=== PATIENT | female | born 1960 | race Hispanic/Latino ===

== ENCOUNTER 2017-11-15 12:13 | Emergency (ER) | payer MEDICAID ==
[2017-11-15 12:23] VITALS: BP 172/88
--- NOTE | 2017-11-15 13:36 | Cat Scan Report ---
FINAL REPORT EXAM: CT HEAD/BRAIN WO CON HISTORY: Sudden onset right side headache. TECHNIQUE: CT of the Head without IV contrast. PRIORS: None currently available. FINDINGS: Decreased attenuation regions in the periventricular and subcortical white matter are nonspecific and may represent small vessel ischemic disease, encephalopathy, edema, or a demyelinating process. Small vessel ischemic disease is more likely. Vascular calcifications. There is no evidence for acute ischemia. There is no hemorrhage. There is no midline shift. There is no hydrocephalus. There is no mass. Age appropriate vivas-white matter attenuation is noted. There is no calvarial fracture. The temporal bones demonstrate aerated mastoid air cells. The middle ears appear unremarkable. Paranasal sinuses are unremarkable. Globes are intact. IMPRESSION: No acute intracranial findings. Chronic ischemic disease.
[2017-11-15] MEDS ORDERED: NORCO 5/325 PO ONE (14:31)
[2017-11-15] MEDS ORDERED: BACTRIM DS PO ONE (14:31)
[2017-11-15] MEDS ORDERED: MOTRIN PO ONE (14:31)
--- NOTE | 2017-11-15 14:53 | Emergency Department Report ---
ED Headache HPI - General Chief Complaint: Headache Stated Complaint: HEAD PAIN Time Seen by Provider: 11/15/17 14:30 - History of Present Illness Initial Comments: 57-year-old female past medical history hypertension, diabetes, bypass surgery presents with complaint of approximately 3 days of scalp pain and "swelling/ knot on the right side of her neck." Patient specifically pointing to the top of her scalp and says that she has noticed some skin changes there. Patient is fully lucid awake alert and oriented 3. Denies any head trauma. Denies any fevers or chills. States that she has significant discomfort overlying her scalp. Quality: mild Associated Symptoms: denies symptoms Allergies/Adverse Reactions: Allergies Penicillins Allergy (Verified 03/20/13 10:23) Itching Home Medications: Ambulatory Orders Metformin HCl [Fortamet ER] 1,000 mg PO DAILY #30 tab.er.24 03/20/13 Pregabalin [Lyrica] 75 mg PO BID #60 capsule 03/20/13 traMADol [Ultram 50 MG tab] 50 mg PO Q4HR PRN #60 tablet 03/20/13 ALPRAZolam [Xanax TAB] 1 mg PO PRN PRN 09/11/13 Lisinopril [Zestril TAB] 20 mg PO DAILY 09/11/13 Oxycodone HCl/Acetaminophen [Percocet 10/325 mg] 1 each PO Q6H PRN 09/11/13 Pregabalin [Lyrica] 200 mg PO DAILY 09/11/13 Acetaminophen/Codeine [Tylenol /Codeine # 3 tab] 1 tab PO Q6H PRN #6 tab Cephalexin [Keflex] 500 mg PO Q12HR #14 cap 11/15/17 Mupirocin [Bactroban 2% CREAM] 1 applicatio TP TID #1 cream 11/15/17 Salicylic Acid [Selsun Blue] 1 applicatio TP QDAY #1 shampoo 11/15/17 Sulfamethoxazole/Trimethoprim [Bactrim DS TAB] 1 each PO BID #14 tablet ED Review of Systems ROS: Stated complaint: HEAD PAIN Other details as noted in HPI Constitutional: denies: chills, fever Eyes: denies: eye pain, eye discharge, vision change ENT: denies: ear pain, throat pain Respiratory: denies: cough, shortness of breath, wheezing Cardiovascular: denies: chest pain, palpitations Endocrine: no symptoms reported Gastrointestinal: denies: abdominal pain, nausea, diarrhea Genitourinary: denies: urgency, dysuria, discharge Musculoskeletal: denies: back pain, joint swelling, arthralgia Skin: as per HPI, lesions (lesions on scalp). denies: rash Neurological: denies: headache, weakness, paresthesias Psychiatric: denies: anxiety, depression Hematological/Lymphatic: denies: easy bleeding, easy bruising ED Past Medical Hx - Past Medical History Hx Hypertension: Yes Hx Diabetes: Yes Hx HIV: No Additional medical history: Diabetic neuropathy, previous CVA per medical record - Surgical History Hx Open Heart Surgery: Yes - Social History Smoking Status: Current Every Day Smoker Substance Use Type: None - Medications Home Medications: Home Medications Medication Instructions Recorded Confirmed Last Taken Type Metformin HCl [Fortamet ER] 1,000 mg PO DAILY #30 tab.er.24 03/20/13 09/11/13 Rx Pregabalin [Lyrica] 75 mg PO BID #60 capsule 03/20/13 09/11/13 09/11/13 Rx traMADol [Ultram 50 MG tab] 50 mg PO Q4HR PRN #60 tablet 03/20/13 09/11/1308/28 Rx ALPRAZolam [Xanax TAB] 1 mg PO PRN PRN 09/11/13 09/11/13 Unknown History Lisinopril [Zestril TAB] 20 mg PO DAILY 09/11/13 09/11/13 09/11/13 History Oxycodone HCl/Acetaminophen 1 each PO Q6H PRN 09/11/13 09/11/13 Unknown History [Percocet 10/325 mg] Pregabalin [Lyrica] 200 mg PO DAILY 09/11/13 09/11/13 09/11/13 History Acetaminophen/Codeine [Tylenol 1 tab PO Q6H PRN #6 tab 11/15/17 Unknown Rx /Codeine # 3 tab] Cephalexin [Keflex] 500 mg PO Q12HR #14 cap 11/15/17 Unknown Rx Mupirocin [Bactroban 2% CREAM] 1 applicatio TP TID #1 cream 11/15/17 Unknown Rx Salicylic Acid [Selsun Blue] 1 applicatio TP QDAY #1 shampoo 11/15/17 Unknown Rx Sulfamethoxazole/Trimethoprim 1 each PO BID #14 tablet 11/15/17 Unknown Rx [Bactrim DS TAB] ED Physical Exam - General Limitations: No Limitations General appearance: alert, in no apparent distress - Head Head exam: Present: atraumatic, normocephalic - Eye Eye exam: Present: normal appearance - ENT ENT exam: Present: mucous membranes moist - Neck Neck exam: Present: normal inspection - Respiratory Respiratory exam: Present: normal lung sounds bilaterally. Absent: respiratory distress - Cardiovascular Cardiovascular Exam: Present: regular rate, normal rhythm. Absent: systolic murmur, diastolic murmur, rubs, gallop - GI/Abdominal GI/Abdominal exam: Present: soft, normal bowel sounds - Extremities Exam Extremities exam: Present: normal inspection - Back Exam Back exam: Present: normal inspection - Neurological Exam Neurological exam: Present: alert, oriented X3 - Psychiatric Psychiatric exam: Present: normal affect, normal mood - Skin Skin exam: Present: warm, dry, intact, normal color. Absent: rash - Expanded Skin Exam Expanded Type of lesion: Present: rash Description of rash: Present: tenderness 1 - Small area of slightly erythematous raised skin top of scalp consistent with ringworm/folliculitis ED Course Vital Signs 11/15/17 12:19 Temperature 97.8 F Pulse Rate 104 H Respiratory 20 Rate Blood Pressure 172/88 O2 Sat by Pulse 93 Oximetry ED Medical Decision Making - Medical Decision Making A/P: Scalp folliculitis/scalp infection 1-empiric treatment with Bactrim and Keflex 2-Selsun blue shampoo 3-I advised the patient to return to the ED if she experiences significant spread of rash fevers chills nausea vomiting 4-Motrin when necessary. Follow-up with primary care doctor Critical care attestation.: If time is entered above; I have spent that time in minutes in the direct care of this critically ill patient, excluding procedure time. ED Disposition Clinical Impression: Infection of scalp, Folliculitis Disposition: TO HOME OR SELFCARE Is pt being admited?: No Does the pt Need Aspirin: No Condition: Stable Instructions: Folliculitis (ED), Tinea Capitis (ED) Prescriptions: Acetaminophen/Codeine [Tylenol /Codeine # 3 tab] 1 tab PO Q6H PRN #6 tab PRN Reason: Pain Cephalexin [Keflex] 500 mg PO Q12HR #14 cap Mupirocin [Bactroban 2% CREAM] 1 applicatio TP TID #1 cream Salicylic Acid [Selsun Blue] 1 applicatio TP QDAY #1 shampoo Sulfamethoxazole/Trimethoprim [Bactrim DS TAB] 1 each PO BID #14 tablet Referrals: SANTY LYNCH DO [Primary Care Provider] - 3-5 Days Forms: Accompanied Note Time of Disposition: 14:59
[2017-11-15] MEDS ORDERED: KEFLEX PO ONE (15:00)
== END 2017-11-15 15:23 | disposition home or self-care (01) ==
LOC: ED 12:13
DX: L73.9 Follicular disorder, unspecified (principal); B99.8 Other infectious disease; I10 Essential (primary) hypertension; E11.9 Type 2 diabetes mellitus without complications; F17.200 Nicotine dependence, unspecified, uncomplicated; Z88.0 Allergy status to penicillin
CPT/HCPCS: 70450

== ENCOUNTER 2017-12-05 20:19 | Emergency (ER) | payer MEDICAID ==
[2017-12-05] MEDS ORDERED: NORCO 5/325 PO ONE (20:40)
[2017-12-05 20:52] LABS: Basophils # (Auto) 0.1 K/mm3 (0.0-0.1); Basophils % (Auto) 1.3 % (0.0-1.8); Eosinophils # (Auto) 0.3 K/mm3 (0.0-0.4); Eosinophils % (Auto) 3.4 % (0.0-4.3); Hematocrit 39.6 % (30.3-42.9); Hemoglobin 13.5 gm/dl (10.1-14.3); Lymphocytes # (Auto) 2.9 K/mm3 (1.2-5.4); Lymphocytes % (Auto) 29.9 % (13.4-35.0); Mean Corpuscular HGB Conc 34 % (30-34); Mean Corpuscular Hemoglobin 28 pg (28-32); Mean Corpuscular Volume 83 fl (79-97); Monocytes # (Auto) 0.6 K/mm3 (0.0-0.8); Monocytes % (Auto) 5.9 % (0.0-7.3); Platelet Count 315 K/mm3 (140-440); Red Blood Count 4.78 M/mm3 (3.65-5.03); Red Cell Distribution Width 16.1 % (13.2-15.2)
--- NOTE | 2017-12-05 21:01 | Emergency Department Report ---
HPI - General Chief Complaint: Headache Time Seen by Provider: 12/05/17 20:36 - HPI HPI: 57-year-old female presents to the emergency department by EMS with 2 complaints. First, the patient complains of pain to the top posterior portion of her head/scalp. The patient was here 3 weeks ago with similar symptoms and had a CT scan done at that time that did not show any acute process. She says that the pain has worsened in this area and it shoots down towards the right side of her scalp towards her ear. She feels a "bump" but denies any trauma. The second complaint is some tingling sensation to the right hand and arm. She denies any numbness, decreased range of motion, fever, chest pain or shortness of breath. She has a history of hypertension, diabetes and previous DC. No recent travel or sick contacts at home. Her primary care physician is Dr. Lynch and she is set up to see him one week from today. She has otherwise taken some ibuprofen for her discomfort without much relief. ED Past Medical Hx - Past Medical History Hx Hypertension: Yes Hx Diabetes: Yes Hx HIV: No Additional medical history: Diabetic neuropathy, previous CVA per medical record , , hx of DC - Surgical History Hx Open Heart Surgery: Yes - Social History Smoking Status: Current Every Day Smoker Substance Use Type: None - Medications Home Medications: Home Medications Medication Instructions Recorded Confirmed Last Taken Type Metformin HCl [Fortamet ER] 1,000 mg PO DAILY #30 tab.er.24 03/20/13 09/11/13 Rx Pregabalin [Lyrica] 75 mg PO BID #60 capsule 03/20/13 09/11/13 09/11/13 Rx traMADol [Ultram 50 MG tab] 50 mg PO Q4HR PRN #60 tablet 03/20/13 09/11/1308/28 Rx ALPRAZolam [Xanax TAB] 1 mg PO PRN PRN 09/11/13 09/11/13 Unknown History Lisinopril [Zestril TAB] 20 mg PO DAILY 09/11/13 09/11/13 09/11/13 History Oxycodone HCl/Acetaminophen 1 each PO Q6H PRN 09/11/13 09/11/13 Unknown History [Percocet 10/325 mg] Pregabalin [Lyrica] 200 mg PO DAILY 09/11/13 09/11/13 09/11/13 History Acetaminophen/Codeine [Tylenol 1 tab PO Q6H PRN #6 tab 11/15/17 Unknown Rx /Codeine # 3 tab] Cephalexin [Keflex] 500 mg PO Q12HR #14 cap 11/15/17 Unknown Rx Mupirocin [Bactroban 2% CREAM] 1 applicatio TP TID #1 cream 11/15/17 Unknown Rx Salicylic Acid [Selsun Blue] 1 applicatio TP QDAY #1 shampoo 11/15/17 Unknown Rx Sulfamethoxazole/Trimethoprim 1 each PO BID #14 tablet 11/15/17 Unknown Rx [Bactrim DS TAB] Acetaminophen/Codeine [Tylenol 1 tab PO QHS PRN #6 tab 12/05/17 Unknown Rx /Codeine # 3 tab] ED Review of Systems ROS: Stated complaint: [place]/R ARM NUMBNESS Other details as noted in HPI Comment: All other systems reviewed and negative Constitutional: denies: chills, fever Eyes: denies: eye pain, eye discharge, vision change ENT: denies: ear pain, throat pain Respiratory: denies: cough, shortness of breath, wheezing Cardiovascular: denies: chest pain, palpitations Gastrointestinal: denies: abdominal pain, nausea, diarrhea Genitourinary: denies: urgency, dysuria, discharge Musculoskeletal: denies: back pain, joint swelling, arthralgia Skin: denies: lesions, change in color Neurological: headache (scalp / head pain), paresthesias Physical Exam - Physical Exam Vital Signs: Vital Signs 12/05/17 12/05/17 12/05/17 20:25 20:30 20:49 Temperature 98.7 F Pulse Rate 96 H 88 Respiratory 17 18 Rate Blood Pressure 117/52 [Left] O2 Sat by Pulse 96 Oximetry Physical Exam: GENERAL: The patient is well-developed well-nourished. HENT: Normocephalic. Patient has moist mucous membranes. EYES: Extraocular motions are intact. Pupils equal reactive to light bilaterally. No nystagmus. NECK: Supple. Trachea is midline. CHEST/LUNGS: Clear to auscultation. There is no respiratory distress noted. HEART/CARDIOVASCULAR: Regular. There is no tachycardia. There is no murmur. ABDOMEN: Abdomen is soft, nontender. Patient has normal bowel sounds. There is no abdominal distention. SKIN: Skin is warm and dry. There is a small circular eschar/scab to the superior posterior portion of the scalp where the patient feels a "bump" and with the patient has some discomfort. NEURO: The patient is awake, alert, and oriented. The patient is cooperative. The patient has no focal neurologic deficits. The patient has normal speech and gait. Cranial nerves II through XII grossly intact MUSCULOSKELETAL: There is no tenderness or deformity. There is no limitation range of motion. There is no evidence of acute injury. ED Course Vital Signs 12/05/17 12/05/17 12/05/17 20:25 20:30 20:49 Temperature 98.7 F Pulse Rate 96 H 88 Respiratory 17 18 Rate Blood Pressure 117/52 [Left] O2 Sat by Pulse 96 Oximetry ED Medical Decision Making - Lab Data Result diagrams: 12/05/17 20:43 12/05/17 20:43 - EKG Data -: EKG Interpreted by Me EKG shows normal: sinus rhythm (with PACs), axis, intervals, QRS complexes, ST- T waves Rate: normal - EKG Data When compared to previous EKG there are: previous EKG unavailable Interpretation: normal EKG - Medical Decision Making The patient had a CT scan done 3 weeks ago for similar complaints and did not show any acute process at this time. She was given a single [place] here and upon reevaluation she says she is feeling much better and therefore I did not feel that a repeat CT imaging of the head was necessary. On top of that, the patient has no focal motor or sensory deficits in her cranial nerves are intact. She was seen ambulatory throughout the emergency department and appears stable. Labs were mostly unremarkable including no leukocytosis or electrolyte abnormalities. There is a small scab or eschar to the area of her discomfort and believe is what she is feeling regarding the "bump." It is possible that the rest of the scalp pain is neuropathy as I do not see any visible rash or lesions to the skin of the scalp at this time. Patient says she is feeling better and is asking for discharge home. She has an appointment in 1 week with her primary care physician but she has been encouraged to move it up the next few days. Vital signs stable including being afebrile. She will return to the ER with any worsening of her symptoms or any acute distress. - Differential Diagnosis neuropathy, tension headache, scalp infection Critical Care Time: No Critical care attestation.: If time is entered above; I have spent that time in minutes in the direct care of this critically ill patient, excluding procedure time. ED Disposition Clinical Impression: Scalp pain, Paresthesia Headache Qualifiers: Headache type: unspecified Headache chronicity pattern: episodic headache Intractability: not intractable Qualified Code(s): R51 - Headache Disposition: DC-01 TO HOME OR SELFCARE Is pt being admited?: No Condition: Stable Instructions: Acute Headache (ED), Paresthesia (ED) Additional Instructions: Please follow-up with your primary care physician in the next few days. Return to the emergency Department with any worsening of your symptoms or any acute distress. You have been prescribed a medication that is sedating and therefore should not be taken prior to driving, working, and responsible for children and in no way should be mixed with alcohol of any quantity. Prescriptions: Acetaminophen/Codeine [Tylenol /Codeine # 3 tab] 1 tab PO QHS PRN #6 tab PRN Reason: Pain Referrals: SANTY LYNCH DO [Staff Physician] - [place] Time of Disposition: 21:55
[2017-12-05 21:19] LABS: Alanine Aminotransferase 8 units/L (7-56); Albumin 3.6 g/dL (3.9-5); BUN/Creatinine Ratio 43; Blood Urea Nitrogen 17 mg/dL (7-17); Calcium 8.4 mg/dL (8.4-10.2); Hemolysis Index 2
[2017-12-05 22:04] VITALS: BP 124/60
== END 2017-12-05 21:50 | disposition home or self-care (01) ==
LOC: ED 20:19
DX: R51 Headache (principal); R20.2 Paresthesia of skin; I10 Essential (primary) hypertension; E11.9 Type 2 diabetes mellitus without complications; F17.200 Nicotine dependence, unspecified, uncomplicated
CPT/HCPCS: 36415; 80053; 84443; 84484; 85025; 93005; 93010

== ENCOUNTER 2017-12-09 12:58 | Emergency (ER) | payer MEDICAID ==
[2017-12-09] MEDS ORDERED: TYLENOL PO ONE (14:21)
[2017-12-09] MEDS ORDERED: TYLENOL ONE ×2 (14:21)
[2017-12-09 14:22] VITALS: BP 168/75
[2017-12-09] MEDS ORDERED: ULTRAM PO ONE (15:59)
[2017-12-09] MEDS ORDERED: MOTRIN PO ONE (15:59)
[2017-12-09] MEDS ORDERED: CLEOCIN PO ONE (15:59)
--- NOTE | 2017-12-09 16:04 | Emergency Department Report ---
ED General Adult HPI - General Chief complaint: Headache Stated complaint: HEADACHE Time Seen by Provider: 12/09/17 15:50 Source: patient Mode of arrival: Ambulatory Limitations: No Limitations - History of Present Illness Initial comments: Patient is a 57-year-old female who is presenting with 2 issues. Patient was seen here approximately 3 weeks ago for folliculitis on scalp. Patient states she took the Keflex and Bactrim as she was prescribed and states that it's gotten somewhat better but she still having a lot of scalp tenderness and pain. Patient states that pain isn't topically the scalp with some radiation of pain to the right parietal region. Patient denies any fevers chills nausea vomiting diarrhea chest pain shortness of breath problems swallowing at this time. Patient also states the right great toe which partially 8 months ago started having an ulcer on the plantar surface that is not healed. Patient states that there was a callous there that was removed distended developed into a large ulcer. Patient states that there is some mild redness that has developed over the last 2 days to the dorsum of the foot. There's been no purulent drainage or foul odor coming from the wound. Severity scale (0 -10): 10 - Related Data Home Medications Medication Instructions Recorded Confirmed Last Taken ALPRAZolam [Xanax TAB] 1 mg PO PRN PRN 09/11/13 09/11/13 Unknown Lisinopril [Zestril TAB] 20 mg PO DAILY 09/11/13 09/11/13 09/11/13 Oxycodone HCl/Acetaminophen 1 each PO Q6H PRN 09/11/13 09/11/13 Unknown [Percocet 10/325 mg] Pregabalin [Lyrica] 200 mg PO DAILY 09/11/13 09/11/13 09/11/13 Previous Rx's Medication Instructions Recorded Last Taken Type Metformin HCl [Fortamet ER] 1,000 mg PO DAILY #30 tab.er.24 03/20/13 09/11/13 Rx Pregabalin [Lyrica] 75 mg PO BID #60 capsule 03/20/13 09/11/13 Rx traMADol [Ultram 50 MG tab] 50 mg PO Q4HR PRN #60 tablet 03/20/13 08/28/13 Rx Acetaminophen/Codeine [Tylenol 1 tab PO Q6H PRN #6 tab 11/15/17 Unknown Rx /Codeine # 3 tab] Cephalexin [Keflex] 500 mg PO Q12HR #14 cap 11/15/17 Unknown Rx Mupirocin [Bactroban 2% CREAM] 1 applicatio TP TID #1 cream 11/15/17 Unknown Rx Salicylic Acid [Selsun Blue] 1 applicatio TP QDAY #1 shampoo 11/15/17 Unknown Rx Sulfamethoxazole/Trimethoprim 1 each PO BID #14 tablet 11/15/17 Unknown Rx [Bactrim DS TAB] Acetaminophen/Codeine [Tylenol 1 tab PO QHS PRN #6 tab 12/05/17 Unknown Rx /Codeine # 3 tab] Clindamycin [Clindamycin CAP] 300 mg PO Q8H 10 Days cap 12/09/17 Unknown Rx HYDROcodone/APAP 5-325 [[place] 1 each PO Q6HR PRN #15 tablet 12/09/17 Unknown Rx 5/325] Ondansetron [Zofran Odt] 4 mg PO Q8HR PRN #10 tab.rapdis 12/09/17 Unknown Rx Allergies Allergy/AdvReac Type Severity Reaction Status Date / Time Penicillins Allergy Itching Verified 12/05/17 20:30 ED Review of Systems ROS: Stated complaint: HEADACHE Other details as noted in HPI Comment: All other systems reviewed and negative ED Past Medical Hx - Past Medical History Hx Hypertension: Yes Hx CVA: Yes (TIA) Hx Diabetes: Yes Hx HIV: No Additional medical history: Diabetic neuropathy, previous CVA per medical record - Surgical History Hx Open Heart Surgery: Yes (CABG x3) Additional Surgical History: tonsillectomy, L toe amputation - Social History Smoking Status: Current Every Day Smoker Substance Use Type: None - Medications Home Medications: Home Medications Medication Instructions Recorded Confirmed Last Taken Type Metformin HCl [Fortamet ER] 1,000 mg PO DAILY #30 tab.er.24 03/20/13 09/11/13 Rx Pregabalin [Lyrica] 75 mg PO BID #60 capsule 03/20/13 09/11/13 09/11/13 Rx traMADol [Ultram 50 MG tab] 50 mg PO Q4HR PRN #60 tablet 03/20/13 09/11/1308/28 Rx ALPRAZolam [Xanax TAB] 1 mg PO PRN PRN 09/11/13 09/11/13 Unknown History Lisinopril [Zestril TAB] 20 mg PO DAILY 09/11/13 09/11/13 09/11/13 History Oxycodone HCl/Acetaminophen 1 each PO Q6H PRN 09/11/13 09/11/13 Unknown History [Percocet 10/325 mg] Pregabalin [Lyrica] 200 mg PO DAILY 09/11/13 09/11/13 09/11/13 History Acetaminophen/Codeine [Tylenol 1 tab PO Q6H PRN #6 tab 11/15/17 Unknown Rx /Codeine # 3 tab] Cephalexin [Keflex] 500 mg PO Q12HR #14 cap 11/15/17 Unknown Rx Mupirocin [Bactroban 2% CREAM] 1 applicatio TP TID #1 cream 11/15/17 Unknown Rx Salicylic Acid [Selsun Blue] 1 applicatio TP QDAY #1 shampoo 11/15/17 Unknown Rx Sulfamethoxazole/Trimethoprim 1 each PO BID #14 tablet 11/15/17 Unknown Rx [Bactrim DS TAB] Acetaminophen/Codeine [Tylenol 1 tab PO QHS PRN #6 tab 12/05/17 Unknown Rx /Codeine # 3 tab] Clindamycin [Clindamycin CAP] 300 mg PO Q8H 10 Days cap 12/09/17 Unknown Rx HYDROcodone/APAP 5-325 [[place] 1 each PO Q6HR PRN #15 tablet 12/09/17 Unknown Rx 5/325] Ondansetron [Zofran Odt] 4 mg PO Q8HR PRN #10 tab.rapdis 12/09/17 Unknown Rx ED Physical Exam - General Limitations: No Limitations General appearance: alert, in no apparent distress - Head Head exam: Present: atraumatic, normocephalic. Absent: normal inspection ( patient has some mild erythema to the top of the scalp. There is one small lymph node palpable underneath the skin on the right parietal area.) - Eye Eye exam: Present: normal appearance - ENT ENT exam: Present: mucous membranes moist - Neck Neck exam: Present: normal inspection - Respiratory Respiratory exam: Present: normal lung sounds bilaterally. Absent: respiratory distress, wheezes, rales, rhonchi - Cardiovascular Cardiovascular Exam: Present: regular rate, normal rhythm. Absent: systolic murmur, diastolic murmur, rubs, gallop - GI/Abdominal GI/Abdominal exam: Present: soft, normal bowel sounds - Extremities Exam Extremities exam: Present: normal inspection, other (patient has a large ulcer on the plantar surface of the right great toe. Has some very mild erythema with minimal warmth to the dorsum of the foot. There is no induration or fluctuance.) - Back Exam Back exam: Present: normal inspection - Neurological Exam Neurological exam: Present: alert, oriented X3 - Psychiatric Psychiatric exam: Present: normal affect, normal mood - Skin Skin exam: Present: warm, dry, intact, normal color. Absent: rash ED Course Vital Signs 12/09/17 14:16 Temperature 98.5 F Pulse Rate 87 Respiratory 20 Rate Blood Pressure 168/75 O2 Sat by Pulse 93 Oximetry ED Medical Decision Making - Medical Decision Making Patient be referred to wound care for her foot wound. Patient be restarted on antibiotics to cover for cellulitis. Patient will be discharged home with pain management. Critical care attestation.: If time is entered above; I have spent that time in minutes in the direct care of this critically ill patient, excluding procedure time. ED Disposition Clinical Impression: Cellulitis of scalp, Foot ulcer due to secondary DM Disposition: DC-01 TO HOME OR SELFCARE Is pt being admited?: No Does the pt Need Aspirin: No Condition: Stable Instructions: Cellulitis (ED), Chronic Wound Care (ED), Diabetic Foot Ulcers ( ED) Referrals: PRIMARY CARE, [Primary Care Provider] - 3-5 Days [facility] - 3-5 Days Time of Disposition: 16:04
== END 2017-12-09 16:17 | disposition home or self-care (01) ==
LOC: ED 12:58
DX: L03.811 Cellulitis of head [any part, except face] (principal); E11.621 Type 2 diabetes mellitus with foot ulcer; L97.519 Non-pressure chronic ulcer of other part of right foot with unspecified severity; I10 Essential (primary) hypertension; F17.200 Nicotine dependence, unspecified, uncomplicated; Z86.73 Personal history of transient ischemic attack (TIA), and cerebral infarction without residual deficits; Z90.89 Acquired absence of other organs; Z88.0 Allergy status to penicillin
CPT/HCPCS: 99283

== ENCOUNTER 2018-07-21 07:33 | Inpatient (IN) | payer MEDICAID ==
[2018-07-21] MEDS ORDERED: ATROVENT IH ONE (08:09)
[2018-07-21] MEDS ORDERED: SOLU-Medrol IV ONE (08:09)
[2018-07-21] MEDS ORDERED: LASIX IV ONE (08:09)
[2018-07-21] MEDS ORDERED: NITROSTAT SL PRN (08:09)
[2018-07-21] MEDS ORDERED: TYLENOL PO ONE (08:09)
[2018-07-21] MEDS ORDERED: PROVENTIL IH ONE (08:09)
[2018-07-21] MEDS ORDERED: VIBRAMYCIN PO ONE (08:09)
--- NOTE | 2018-07-21 08:10 | Emergency Department Report ---
ED General Adult HPI - General Chief complaint: Dyspnea/Respdistress Stated complaint: SOB Time Seen by Provider: 07/21/18 08:08 Source: patient, EMS (ems notes not available at time of chart dictation), RN notes reviewed, old records reviewed Mode of arrival: Stretcher Limitations: Physical Limitation - History of Present Illness Initial comments: This is a 57-year-old female. Past medical history includes morbid obesity, pulmonary hypertension, untreated sleep apnea, nocturnal hypoxemia, COPD, heart disease, status post bypass, ejection fraction of 35%. Cardiology: [facility] Pulmonology: Reports no primary community health outreach worker The patient is brought to the hospital by EMS for shortness of breath. This is present for 3 days. She reports new-onset orthopnea. She denies unintentional weight gain. She reports abdominal wall pain associated with coughing. She believes that she has lost weight. Her symptoms are constant, worse with physi eyal exertion, worsened with laying down, decreased when sitting up. Patient has been seen multiple times for similar symptoms. In the past, patient has been evaluated by both cardiology and pulmonology. On a previous pulmonology consultation, the patient was counseled extensively for the need to treat her sleep apnea. However, the patient has indicated in the past, that she would not wear a mask. She also is anxious, and is also requesting ice chips. -: Gradual, days(s) (3) Consistency: constant Improves with: rest Worsens with: movement Associated Symptoms: cough, loss of appetite, malaise, nausea/vomiting, shortness of breath, weakness. denies: confusion, chest pain, diaphoresis, fever/chills, headaches, rash, seizure, syncope - Related Data Previous Rx's Medication Instructions Recorded Last Taken Type ALPRAZolam [Xanax TAB] 1 mg PO PRN PRN tablet 04/07/18 Unknown Rx HYDROcodone/APAP 5-325 [[place] 1 each PO Q6HR PRN #14 tablet 04/07/18 Unknown Rx 5-325 mg TAB] Albuterol Sulfate [Albuterol 0.63% 0.63 mg IH TID PRN #120 ml 05/09/18 Unknown Rx NEBS] Diabetic Supplies,Miscell [[place] 1 each MC BID #1 miscell 05/09/18 Unknown Rx Serter] Furosemide [Lasix TAB] 40 mg PO QDAY #60 tablet 05/09/18 Unknown Rx Gabapentin [Neurontin] 300 mg PO TID #30 capsule 05/09/18 Unknown Rx Insulin NPH/Regular [NovoLIN 70/30] 10 unit SUB-Q BID #1 vial 05/09/18 Unknown Rx Ipratropium/Albuterol Sulfate 1 ampul IH QIDRT #120 ampul.neb 05/09/18 Unknown Rx [DUONEB *Not for PRN Use*] Lisinopril [Zestril TAB] 20 mg PO DAILY #30 tablet 05/09/18 Unknown Rx Nebulizer and Compressor [[place] 1 each MC QID #1 each 05/09/18 Unknown Rx Choice Nebulizer] Potassium Chloride [K-Dur] 20 meq PO QDAY #15 tablet 05/09/18 Unknown Rx Prednisone [predniSONE 10 mg 10 mg PO .TAPER #1 tab.ds.pk 05/09/18 Unknown Rx (6-Day Pack, 21 Tabs)] Zolpidem [Ambien] 5 mg PO QHS #15 tablet 05/09/18 Unknown Rx guaiFENesin/CODEINE [Robitussin AC] 10 ml PO Q4HR #120 ml 05/09/18 Unknown Rx levoFLOXacin [Levaquin TAB] 500 mg PO DAILY #5 tablet 05/09/18 Unknown Rx oxyCODONE /ACETAMINOPHEN [Percocet 1 tab PO Q4H PRN #12 tablet 05/09/18 Unknown Rx 5/325 mg] Sulfamethoxazole/Trimethoprim 1 each PO BID #10 tablet 05/26/18 Unknown Rx [Bactrim DS TAB] traMADol [Ultram 50 MG tab] 50 mg PO Q6HR PRN #11 tablet 05/26/18 Unknown Rx Allergies Allergy/AdvReac Type Severity Reaction Status Date / Time Penicillins Allergy Itching Verified 04/03/18 12:43 ED Review of Systems ROS: Stated complaint: SOB Other details as noted in HPI Constitutional: malaise, weakness Eyes: denies: eye discharge ENT: congestion. denies: epistaxis Respiratory: shortness of breath, SOB with exertion, SOB at rest, wheezing Cardiovascular: orthopnea Gastrointestinal: abdominal pain Genitourinary: denies: dysuria Musculoskeletal: arthralgia, myalgia Skin: denies: lesions Neurological: weakness Psychiatric: anxiety ED Past Medical Hx - Past Medical History Previous Medical History?: Yes Hx Hypertension: Yes Hx CVA: Yes (TIA) Hx Heart Attack/AMI: No Hx Congestive Heart Failure: No Hx Diabetes: Yes Hx Deep Vein Thrombosis: No Hx Pulmonary Embolism: No Hx Liver Disease: No Hx Sickle Cell Disease: No Hx Arthritis: No Hx Seizures: No Hx Kidney Stones: No Hx Asthma: Yes Hx COPD: Yes Hx Tuberculosis: No Hx Dementia: No Hx HIV: No Additional medical history: Diabetic neuropathy, previous CVA per medical record - Surgical History Hx Coronary Stent: No Hx Open Heart Surgery: Yes (CABG x3) Hx Internal Defibrillator: No Hx Cholecystectomy: No Additional Surgical History: tonsillectomy. all toes on left foot amputated. right great toe amputated - Social History Smoking Status: Current Every Day Smoker Substance Use Type: None - Medications Home Medications: Home Medications Medication Instructions Recorded Confirmed Last Taken Type ALPRAZolam [Xanax TAB] 1 mg PO PRN PRN tablet 04/07/18 04/28/18 Unknown Rx HYDROcodone/APAP 5-325 [[place] 1 each PO Q6HR PRN #14 tablet 04/07/18 04/28/18 Unknown Rx 5-325 mg TAB] Albuterol Sulfate [Albuterol 0.63% 0.63 mg IH TID PRN #120 ml 05/09/18 Unknown Rx NEBS] Diabetic Supplies,Miscell [[place] 1 each MC BID #1 miscell 05/09/18 Unknown Rx Serter] Furosemide [Lasix TAB] 40 mg PO QDAY #60 tablet 05/09/18 Unknown Rx Gabapentin [Neurontin] 300 mg PO TID #30 capsule 05/09/18 Unknown Rx Insulin NPH/Regular [NovoLIN 70/30] 10 unit SUB-Q BID #1 vial 05/09/18 Unknown Rx Ipratropium/Albuterol Sulfate 1 ampul IH QIDRT #120 ampul.neb 05/09/18 Unknown Rx [DUONEB *Not for PRN Use*] Lisinopril [Zestril TAB] 20 mg PO DAILY #30 tablet 05/09/18 Unknown Rx Nebulizer and Compressor [[place] 1 each MC QID #1 each 05/09/18 Unknown Rx Choice Nebulizer] Potassium Chloride [K-Dur] 20 meq PO QDAY #15 tablet 05/09/18 Unknown Rx Prednisone [predniSONE 10 mg 10 mg PO .TAPER #1 tab.ds.pk 05/09/18 Unknown Rx (6-Day Pack, 21 Tabs)] Zolpidem [Ambien] 5 mg PO QHS #15 tablet 05/09/18 Unknown Rx guaiFENesin/CODEINE [Robitussin AC] 10 ml PO Q4HR #120 ml 05/09/18 Unknown Rx levoFLOXacin [Levaquin TAB] 500 mg PO DAILY #5 tablet 05/09/18 Unknown Rx oxyCODONE /ACETAMINOPHEN [Percocet 1 tab PO Q4H PRN #12 tablet 05/09/18 Unknown Rx 5/325 mg] Sulfamethoxazole/Trimethoprim 1 each PO BID #10 tablet 05/26/18 Unknown Rx [Bactrim DS TAB] traMADol [Ultram 50 MG tab] 50 mg PO Q6HR PRN #11 tablet 05/26/18 Unknown Rx ED Physical Exam - General Limitations: Physical Limitation General appearance: alert, in distress, obese - Head Head exam: Present: atraumatic, normocephalic - Eye Eye exam: Present: normal appearance, EOMI. Absent: nystagmus - ENT ENT exam: Present: normal exam, normal orophraynx, mucous membranes moist, normal external ear exam - Neck Neck exam: Present: normal inspection, full ROM. Absent: tenderness, meningismus - Respiratory Respiratory exam: Present: respiratory distress, wheezes, rales, rhonchi - Cardiovascular Cardiovascular Exam: Present: regular rate, normal rhythm, normal heart sounds. Absent: bradycardia, tachycardia, irregular rhythm, systolic murmur, diastolic murmur, rubs, gallop - GI/Abdominal GI/Abdominal exam: Present: soft. Absent: distended, tenderness, guarding, rebound, rigid, pulsatile mass - Extremities Exam Extremities exam: Present: normal inspection (2+ pulses noted in the bilateral upper, lower extremities. Compartments soft. No long bony tenderness. The pelvis is stable.), pedal edema, other (left foot history of transmetatarsal amputation.). Absent: calf tenderness - Back Exam Back exam: Present: normal inspection, full ROM. Absent: tenderness, CVA tenderness (R), paraspinal tenderness, vertebral tenderness - Neurological Exam Neurological exam: Present: alert, other (Extraocular movements intact. Tongue midline. No facial droop. Facial sensation intact to light touch in the V1, V2, V3 distribution bilaterally. 5 and 5 strength in 4 extremities.. Sensation is intact to light touch in 4 extremities.). Absent: motor sensory deficit - Psychiatric Psychiatric exam: Present: anxious - Skin Skin exam: Present: warm, dry, intact, normal color. Absent: rash ED Course Vital Signs 07/21/18 07:50 Temperature 97.2 F L Pulse Rate 92 H Respiratory 22 Rate Blood Pressure 128/91 O2 Sat by Pulse 94 Oximetry - Reevaluation(s) Reevaluation #1: 07/21/18 08:40 Differential diagnosis, including but not limited to: COPD exacerbation, pulmonary hypertension, obstructive sleep apnea, obesity hypoventilation syndrome, congestive heart failure Assessment and plan: 57-year-old female with fully manage chronic pulmonary cardiovascular comorbidities, with clinically and radiographically decompensated congestive heart failure, as well as presumed COPD exacerbation. Patient also appears to be fairly anxious. We will treat her with albuterol, Atrovent, steroids, empiric doxycycline, IV diuresis, nonnarcotic pain medication, and admit to the medical service. Reevaluation #2: 07/21/18 08:41 Patient given steroids by prehospital personnel as per verbal report from nursing staff, therefore we will withhold steroids Reevaluation #3: 07/21/18 08:53 Dr Rider to admit - Consultations Consultation #1: 07/21/18 09:00 Discussed with cardiology, David Ferrell, of [facility], and their group will follow in consultation. ED Medical Decision Making - Lab Data Result diagrams: 07/21/18 08:10 07/21/18 08:10 Vital Signs 07/21/18 07:50 Temperature 97.2 F L Pulse Rate 92 H Respiratory 22 Rate Blood Pressure 128/91 O2 Sat by Pulse 94 Oximetry Lab Results 07/21/18 07/21/18 07/21/18 Range/Units 08:10 08:10 08:10 [place] % (Auto) 6.3 (0.0-7.3) % Eos % (Auto) 2.1 (0.0-4.3) % [place] # 0.5 (0.0-0.8) K/mm3 Eos # 0.2 (0.0-0.4) K/mm3 Baso # 0.1 (0.0-0.1) K/mm3 Seg Neutrophils % 59.3 (40.0-70.0) % Seg Neutrophils # 4.3 (1.8-7.7) K/mm3 Sodium 140 (137-145) mmol/L Potassium 4.6 (3.6-5.0) mmol/L Chloride 102.5 (98-107) mmol/L Carbon Dioxide 22 (22-30) mmol/L Anion Gap 20 mmol/L BUN 16 (7-17) mg/dL Creatinine 0.5 L (0.7-1.2) mg/dL Estimated GFR > 60 ml/min BUN/Creatinine Ratio 32 % Glucose 150 H (65-100) mg/dL Calcium 8.2 L (8.4-10.2) mg/dL Magnesium 2.00 (1.7-2.3) mg/dL Total Bilirubin 0.50 (0.1-1.2) mg/dL ALT 8 (7-56) units/L Alkaline Phosphatase 125 (35-129) units/L Total Creatine Kinase 43 (30-135) units/L Troponin T < 0.010 (0.00-0.029) ng/mL NT-Pro-B Natriuret Pep 2016 H (0-900) pg/mL Total Protein 6.9 (6.3-8.2) g/dL Albumin 3.4 L (3.9-5) g/dL Albumin/Globulin Ratio 1.0 % - EKG Data -: EKG Interpreted by Co EKG shows normal: sinus rhythm Rate: normal - EKG Data 07/21/18 08:40 Sinus, 89 bpm, normal axis, QTC prolonged, poor R-wave progression, motion artifact, Q waves in inferior leads, abnormal EKG, not consistent with ST elevation myocardial infarction, appears unchanged from prior from 05/06/2018. - Radiology Data Radiology results: report reviewed, image reviewed X-ray of the chest shows sternotomy, enlarged cardiac silhouette, congestive heart failure Critical care attestation.: If time is entered above; I have spent that time in minutes in the direct care of this critically ill patient, excluding procedure time. ED Disposition Clinical Impression: COPD exacerbation, CHF exacerbation Disposition: OP ADMIT IP TO THIS HOSP Is pt being admited?: Yes Condition: Fair
--- NOTE | 2018-07-21 08:34 | XRay Report ---
AP CHEST: HISTORY: Dyspnea, CHF Moderate cardiomegaly and mild pulmonary venous congestion appear relatively stable since 05/06/18. Trace pleural effusions are suspected. No evidence for pneumonia or pneumothorax. IMPRESSION: Mild CHF.
[2018-07-21 08:47] LABS: Basophils # (Auto) 0.1 K/mm3 (0.0-0.1); Basophils % (Auto) 1.3 % (0.0-1.8); Eosinophils # (Auto) 0.2 K/mm3 (0.0-0.4); Eosinophils % (Auto) 2.1 % (0.0-4.3); Hematocrit 45.1 % (30.3-42.9); Hemoglobin 14.4 gm/dl (10.1-14.3); Lymphocytes # (Auto) 2.3 K/mm3 (1.2-5.4); Mean Corpuscular HGB Conc 32 % (30-34); Mean Corpuscular Volume 80 fl (79-97); Monocytes # (Auto) 0.5 K/mm3 (0.0-0.8); Monocytes % (Auto) 6.3 % (0.0-7.3); Platelet Count 233 K/mm3 (140-440); Red Blood Count 5.64 M/mm3 (3.65-5.03)
[2018-07-21 09:03] LABS: Alanine Aminotransferase 8 units/L (7-56); Albumin 3.4 g/dL (3.9-5); BUN/Creatinine Ratio 32; Blood Urea Nitrogen 16 mg/dL (7-17); Calcium 8.2 mg/dL (8.4-10.2); Hemolysis Index 58
[2018-07-21 09:13] LABS: INR 1.2 (0.87-1.13)
--- NOTE | 2018-07-21 09:32 | Consultation ---
Addendum entered and electronically signed by DUTCH CHEEMA MD 07/21/18 11:51: Patient presents with shortness of breath, wheezing, consistent with COPD exhibi tion. Continue bronchodilators and medical therapy as guided by her primary lung splitter. Original Note: History of Present Illness Consult date: 07/21/18 Consult reason: congestive heart failure History of present illness: Patient is a 57 year old woman whom is morbidly obese and has a history of cor pumonale, severe pulmonary hypertension, chronic lung disease and continues to smoke cigarettes. Patient also has a history of coronary artery disease, ischemic cardiomyopathy, non compliant with outpatient cardiac follow ups. In 2013, she underwent three-vessel coronary artery bypass at [facility]. Her latest echocardiogram, done 2 months ago, documents a decrease left ventricular systolic function, ejection fraction 30-35%. Co-morbidities includes hypertension, prior CVA, diabetes, and peripheral vascular disease. Patient presents with shortness of breath, wheezing and complaints of abdominal distension. Patient inability to lay flat without being short of breath. She denies chest pain and palpitations. There is no lower extremity edema. On exam, she is short of breath with diffuse expiratory wheezing. A chest x-ray reports cardiomegaly, no evidence of significant interstitial edema. Cardiac consultation was requested for CHF evaluation and management. Medications and Allergies Allergies Allergy/AdvReac Type Severity Reaction Status Date / Time Penicillins Allergy Itching Verified 04/03/18 12:43 Home Medications Medication Instructions Recorded Confirmed Last Taken Type ALPRAZolam [Xanax TAB] 1 mg PO PRN PRN tablet 04/07/18 04/28/18 Unknown Rx HYDROcodone/APAP 5-325 [[place] 1 each PO Q6HR PRN #14 tablet 04/07/18 04/28/18 Unknown Rx 5-325 mg TAB] Albuterol Sulfate [Albuterol 0.63% 0.63 mg IH TID PRN #120 ml 05/09/18 Unknown Rx NEBS] Diabetic Supplies,Miscell [Enlite 1 each MC BID #1 miscell 05/09/18 Unknown Rx Serter] Furosemide [Lasix TAB] 40 mg PO QDAY #60 tablet 05/09/18 Unknown Rx Gabapentin [Neurontin] 300 mg PO TID #30 capsule 05/09/18 Unknown Rx Insulin NPH/Regular [NovoLIN 70/30] 10 unit SUB-Q BID #1 vial 05/09/18 Unknown Rx Ipratropium/Albuterol Sulfate 1 ampul IH QIDRT #120 ampul.neb 05/09/18 Unknown Rx [DUONEB *Not for PRN Use*] Lisinopril [Zestril TAB] 20 mg PO DAILY #30 tablet 05/09/18 Unknown Rx Nebulizer and Compressor [[place] 1 each MC QID #1 each 05/09/18 Unknown Rx Choice Nebulizer] Potassium Chloride [K-Dur] 20 meq PO QDAY #15 tablet 05/09/18 Unknown Rx Prednisone [predniSONE 10 mg 10 mg PO .TAPER #1 tab.ds.pk 05/09/18 Unknown Rx (6-Day Pack, 21 Tabs)] Zolpidem [Ambien] 5 mg PO QHS #15 tablet 05/09/18 Unknown Rx guaiFENesin/CODEINE [Robitussin AC] 10 ml PO Q4HR #120 ml 05/09/18 Unknown Rx levoFLOXacin [Levaquin TAB] 500 mg PO DAILY #5 tablet 05/09/18 Unknown Rx oxyCODONE /ACETAMINOPHEN [Percocet 1 tab PO Q4H PRN #12 tablet 05/09/18 Unknown Rx 5/325 mg] Sulfamethoxazole/Trimethoprim 1 each PO BID #10 tablet 05/26/18 Unknown Rx [Bactrim DS TAB] traMADol [Ultram 50 MG tab] 50 mg PO Q6HR PRN #11 tablet 05/26/18 Unknown Rx Physical Examination Vital Signs Temp Pulse Resp BP Pulse Ox 97.2 F L 92 H 22 128/91 94 07/21/18 07:50 07/21/18 07:50 07/21/18 07:50 07/21/18 07:50 07/21/18 07:50 General appearance: no acute distress Cardiac: Positive: Reg Rate and Rhythm Lungs: Positive: Wheezes Neuro: Positive: Grossly Intact Extremities: Absent: edema Results 07/21/18 08:10 07/21/18 08:10 Cardiac Enzymes 07/21/18 Range/Units 08:10 AST 15 (5-40) units/L Coagulation 07/21/18 Range/Units 08:10 PT 15.6 H (12.2-14.9) Sec. INR 1.20 H (0.87-1.13) CBC 07/21/18 Range/Units 08:10 [place] # 0.5 (0.0-0.8) K/mm3 Eos # 0.2 (0.0-0.4) K/mm3 Baso # 0.1 (0.0-0.1) K/mm3 Comprehensive Metabolic Panel 07/21/18 Range/Units 08:10 Sodium 140 (137-145) mmol/L Potassium 4.6 (3.6-5.0) mmol/L Chloride 102.5 (98-107) mmol/L Carbon Dioxide 22 (22-30) mmol/L BUN 16 (7-17) mg/dL Creatinine 0.5 L (0.7-1.2) mg/dL Glucose 150 H (65-100) mg/dL Calcium 8.2 L (8.4-10.2) mg/dL AST 15 (5-40) units/L ALT 8 (7-56) units/L Alkaline Phosphatase 125 (35-129) units/L Total Protein 6.9 (6.3-8.2) g/dL Albumin 3.4 L (3.9-5) g/dL Assessment and Plan COPD exacerbation Active cigarette smoker Cor pulmonale Severe pulm HTN Hx of CAD s/p 3v CABG in 2013 HTN Prior CVA Diabetes Obesity PVD s/p TMA Ischemic cardiomyopathy, EF 30-35%. Recommendations: Pulmonary consultation for management of pulmonary infection and severe pulmonary hypertension. Medical management for ischemic cardiomyopathy. Smoking cessation.
[2018-07-21 09:34] LABS: Red Cell Distribution Width 20.9 % (13.2-15.2)
[2018-07-21] MEDS: PERCOCET 5/325 PO PRN ×2 (12:42→18:44)
[2018-07-21] MEDS ORDERED: PROVENTIL IH PRN (17:00)
[2018-07-21] MEDS: HumaLOG SUB-Q SCH ×2 (17:59→22:55)
[2018-07-21] MEDS: LASIX IV SCH (18:01)
--- NOTE | 2018-07-21 18:38 | History and Physical Report ---
History of Present Illness Date of examination: 07/21/18 Date of admission: 07/21/18 08:52 Chief complaint: CHF exacerbation. History of present illness: Patient presented to the ER with CC of SOB, MAGDIEL, w/up in the ER confirmed CHF exa. She is admitted for sxs management. She has so many Co morbid issues, including DM, Pul HTN with cor pulmonale, and CAD/CABG.most recent EF 35%, she continues to smoke, and eats all the wrong food, despite all the warning about her bad habits .she also has PVD, with left TAMP, and right digital AMP.due to diabetic complications.She will be diuresed, given BT, steroids, oxygen, re- check xry, and if ok, will d/c home. Past History Past Medical History: CAD, diabetes, hypertension, hyperlipidemia, PVD Past Surgical History: CABG, Other (toes amputation.) Social history: single, lives with family, smoking, full code Family history: no significant family history Medications and Allergies Allergies Allergy/AdvReac Type Severity Reaction Status Date / Time Penicillins Allergy Itching Verified 04/03/18 12:43 Home Medications Medication Instructions Recorded Confirmed Last Taken Type ALPRAZolam [Xanax TAB] 1 mg PO PRN PRN tablet 04/07/18 07/21/18 07/20/18 Rx HYDROcodone/APAP 5-325 [[place] 1 each PO Q6HR PRN #14 tablet 04/07/18 07/21/18 Unknown Rx 5-325 mg TAB] Albuterol Sulfate [Albuterol 0.63% 0.63 mg IH TID PRN #120 ml 05/09/18 07/21/18 07/20/18 Rx NEBS] Diabetic Supplies,Miscell [Enlite 1 each MC BID #1 miscell 05/09/18 07/21/18 Unknown Rx Serter] Furosemide [Lasix TAB] 40 mg PO QDAY #60 tablet 05/09/18 07/21/18 07/20/18 Rx Gabapentin [Neurontin] 300 mg PO TID #30 capsule 05/09/18 07/21/18 07/20/18 Rx Insulin NPH/Regular [NovoLIN 70/30] 10 unit SUB-Q BID #1 vial 05/09/18 07/21/18 Unknown Rx Ipratropium/Albuterol Sulfate 1 ampul IH QIDRT #120 ampul.neb 05/09/18 07/21/18 Unknown Rx [DUONEB *Not for PRN Use*] Lisinopril [Zestril TAB] 20 mg PO DAILY #30 tablet 05/09/18 07/21/18 07/20/18 Rx Nebulizer and Compressor [[place] 1 each MC QID #1 each 05/09/18 07/21/18 Rx Choice Nebulizer] Potassium Chloride [K-Dur] 20 meq PO QDAY #15 tablet 05/09/18 07/21/18 07/21/18 Rx Prednisone [predniSONE 10 mg 10 mg PO .TAPER #1 tab.ds.pk 05/09/18 07/21/1807/02 Rx (6-Day Pack, 21 Tabs)] Zolpidem [Ambien] 5 mg PO QHS #15 tablet 05/09/18 07/21/18 07/21/18 Rx guaiFENesin/CODEINE [Robitussin AC] 10 ml PO Q4HR #120 ml 05/09/18 07/21/18 07/20/18 Rx levoFLOXacin [Levaquin TAB] 500 mg PO DAILY #5 tablet 05/09/18 07/21/18 07/20/18 Rx oxyCODONE /ACETAMINOPHEN [Percocet 1 tab PO Q4H PRN #12 tablet 05/09/18 07/21/18 Unknown Rx 5/325 mg] Sulfamethoxazole/Trimethoprim 1 each PO BID #10 tablet 05/26/18 07/21/18 Unknown Rx [Bactrim DS TAB] traMADol [Ultram 50 MG tab] 50 mg PO Q6HR PRN #11 tablet 05/26/18 07/21/18 07/21/18 Rx Lispro Insulin [Humalog] 10 unit SQ TID 07/21/18 07/21/18 07/19/18 History Active Meds: Active Medications Albuterol (Proventil) 2.5 mg IH Q4HRT PRN PRN Reason: Shortness Of Breath Furosemide (Lasix) 40 mg IV 0600,1800 LUZ Last Admin: 07/21/18 18:01 Dose: 40 mg Documented by: Gabapentin (Neurontin) 300 mg PO TID LUZ Heparin Sodium (Porcine) (Heparin) 5,000 unit SUB-Q Q8HR [facility] Insulin Human Lispro (Humalog) 0 unit SUB-Q ACHS [facility]; Protocol Last Admin: 07/21/18 17:59 Dose: 3 unit Documented by: Methylprednisolone Sodium Succinate (Solu-Medrol) 40 mg IV Q8HR [facility] Oxycodone/Acetaminophen (Percocet 5/325) 1 tab PO Q6H PRN PRN Reason: Pain, Moderate (4-6) Last Admin: 07/21/18 12:42 Dose: 1 tab Documented by: Potassium Chloride (K-Dur) 20 meq PO QDAY [facility] Zolpidem Tartrate (Ambien) 5 mg PO QHS PRN PRN Reason: Sleep Review of Systems Breasts: deferred Respiratory: shortness of breath, dyspnea on exertion Musculoskeletal: leg numbness/tingling Exam - Constitutional Vitals: Temp Pulse Resp BP Pulse Ox 97.3 F L 92 H 20 134/82 94 07/21/18 17:48 07/21/18 17:49 07/21/18 17:49 07/21/18 17:49 07/21/18 17:49 General appearance: Present: no acute distress, well-nourished - EENT Eyes: Present: PERRL ENT: hearing intact, clear oral mucosa - Neck Neck: Present: supple, normal ROM - Respiratory Respiratory: bilateral: wheezing - Cardiovascular Heart Sounds: Present: S1 & S2. Absent: rub, click - Extremities Extremities: pulses symmetrical, No edema Peripheral Pulses: within normal limits - Abdominal General gastrointestinal: Present: soft, non-tender, non-distended, normal bowel sounds Female genitourinary: Present: deferred - Rectal Rectal Exam: deferred - Integumentary Integumentary: Present: clear, warm, dry - Musculoskeletal Musculoskeletal: gait normal, strength equal bilaterally - Psychiatric Psychiatric: appropriate mood/affect, intact judgment & insight - Neurologic Neurologic: CNII-XII intact, moves all extremities Results - Labs CBC & Chem 7: 07/21/18 08:10 07/21/18 08:10 Labs: Abnormal lab results 07/21/18 07/21/18 07/21/18 Range/Units 08:10 08:10 08:10 RBC 5.64 H (3.65-5.03) M/mm3 Hgb 14.4 H (10.1-14.3) gm/dl Hct 45.1 H (30.3-42.9) % MCH 26 L (28-32) pg RDW 20.9 H (13.2-15.2) % PT 15.6 H (12.2-14.9) Sec. INR 1.20 H (0.87-1.13) Creatinine 0.5 L (0.7-1.2) mg/dL Glucose 150 H (65-100) mg/dL POC Glucose (70-105) Calcium 8.2 L (8.4-10.2) mg/dL NT-Pro-B Natriuret Pep 2016 H (0-900) pg/mL Albumin 3.4 L (3.9-5) g/dL 07/21/18 Range/Units 16:48 RBC (3.65-5.03) M/mm3 Hgb (10.1-14.3) gm/dl Hct (30.3-42.9) % MCH (28-32) pg RDW (13.2-15.2) % PT (12.2-14.9) Sec. INR (0.87-1.13) Creatinine (0.7-1.2) mg/dL Glucose (65-100) mg/dL POC Glucose 251 H (70-105) Calcium (8.4-10.2) mg/dL NT-Pro-B Natriuret Pep (0-900) pg/mL Albumin (3.9-5) g/dL Assessment and Plan - Patient Problems (1) CHF exacerbation Current Visit: Yes Status: Acute Plan to address problem: diuretics. (2) COPD exacerbation Current Visit: Yes Status: Acute Plan to address problem: oxygen/Neb/steroids. (3) CHF (congestive heart failure) Current Visit: No Status: Acute Qualifiers: Heart failure type: combined systolic and diastolic Heart failure chronicity: acute on chronic Qualified Code(s): I50.43 - Acute on chronic combined systolic (congestive) and diastolic (congestive) heart failure Plan to address problem: diuretics (4) Chronic pain Current Visit: No Status: Acute Plan to address problem: Pain control.
[2018-07-21] MEDS: NEURONTIN PO SCH (21:05)
[2018-07-21] MEDS: SOLU-Medrol IV SCH (22:01)
[2018-07-21] MEDS: HEPARIN SUB-Q SCH (22:01)
[2018-07-21] MEDS: AMBIEN PO PRN (22:03)
[2018-07-22 06:48] LABS: BUN/Creatinine Ratio 44; Blood Urea Nitrogen 22 mg/dL (7-17); Calcium 8.3 mg/dL (8.4-10.2); Hemolysis Index 2
[2018-07-22] MEDS: SOLU-Medrol IV SCH ×3 (06:50→21:21)
[2018-07-22] MEDS: LASIX IV SCH ×2 (06:50→17:48)
[2018-07-22] MEDS: HEPARIN SUB-Q SCH ×3 (06:50→21:21)
[2018-07-22] MEDS: NEURONTIN PO SCH ×3 (08:08→21:21)
[2018-07-22] MEDS: PERCOCET 5/325 PO PRN ×3 (08:08→21:23)
[2018-07-22] MEDS: HumaLOG SUB-Q SCH ×4 (08:46→21:22)
[2018-07-22] MEDS: ZESTRIL PO SCH (10:02)
[2018-07-22] MEDS: K-DUR PO SCH (10:02)
[2018-07-22] MEDS: COREG PO SCH ×2 (10:02→21:20)
[2018-07-22] MEDS: BABY ASPIRIN PO SCH (10:02)
--- NOTE | 2018-07-22 10:39 | Progress Note ---
Addendum entered and electronically signed by DUTCH CHEEMA MD 07/22/18 14:13: Patient continues to have shortness of breath associated with diffuse wheezes an d bronchospasm, recommend further consultation with the patient's e learning coordinator. Original Note: Assessment and Plan COPD exacerbation Active cigarette smoker Cor pulmonale Severe pulm HTN Hx of CAD s/p 3v CABG in 2013 HTN Prior CVA Diabetes Obesity PVD s/p TMA Ischemic cardiomyopathy, EF 30-35%. Recommendations: Pulmonary consultation for management of pulmonary infection and severe pulmonary hypertension. Medical management for ischemic cardiomyopathy. Advised smoking cessation. Subjective Date of service: 07/22/18 Interval history: Still with active wheezing. Objective Vital Signs Temp Pulse Pulse Pulse Pulse Resp Resp 07/22/18 10:02 86 07/22/18 08:55 89 20 07/22/18 08:54 97.3 F L 07/22/18 07:03 97.6 F 94 H 18 07/22/18 01:00 92 H 07/22/18 00:02 97.2 F L 85 18 07/21/18 22:02 68 20 07/21/18 22:00 81 81 18 07/21/18 21:50 64 20 07/21/18 17:49 92 H 20 07/21/18 17:48 97.3 F L 07/21/18 17:22 91 H 07/21/18 12:26 BP Pulse Ox 07/22/18 10:02 130/67 07/22/18 08:55 175/101 91 07/22/18 08:54 07/22/18 07:03 123/71 98 07/22/18 01:00 07/22/18 00:02 120/83 98 07/21/18 22:02 07/21/18 22:00 98 07/21/18 21:50 07/21/18 17:49 134/82 94 07/21/18 17:48 07/21/18 17:22 07/21/18 12:26 98 - Physical Examination General: No Apparent Distress HEENT: Positive: PERRL Cardiac: Positive: Reg Rate and Rhythm Lungs: Positive: Wheezes Neuro: Positive: Grossly Intact Extremities: Absent: edema - Labs and Meds Comprehensive Metabolic Panel 07/22/18 Range/Units 05:39 Sodium 135 L (137-145) mmol/L Potassium 4.4 (3.6-5.0) mmol/L Chloride 94.6 L (98-107) mmol/L Carbon Dioxide 26 (22-30) mmol/L BUN 22 H (7-17) mg/dL Creatinine 0.5 L (0.7-1.2) mg/dL Glucose 239 H (65-100) mg/dL Calcium 8.3 L (8.4-10.2) mg/dL
--- NOTE | 2018-07-22 14:27 | Consultation ---
History of Present Illness Consult date: 07/22/18 Reason for consult: dyspnea, pulmonary hypertension History of present illness: PULMONARY AND CRITICAL CARE CONSULTATION. DR. GUTIÉRREZ THANK YOU FOR ASKING US TO PARTICIPATE IN THE CARE OF THIS PATIENT. Patient presented to the ER with CC of SOB, MAGDIEL, w/up in the ER confirmed CHF ex acerbation. She has so many Co morbid issues, including DM, Pul HTN with cor pulmonale, and CAD/CABG.most recent EF 35%. despite all the warning about her bad habits .she also has PVD, with left toes amputation, and right digital AMP.due to diabetic complications.Patient she is on home O2. Patient has history of smoking 1/2 pack x 35 years.Denies alcohol and drug abuse. 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 Patient allergic to penicillin. Patient says breathing better since admission.Patient is on 2 litres O2. O2 saturation 97%. Past History Past Medical History: CAD, diabetes, hypertension, hyperlipidemia, PVD Past Surgical History: CABG, Other (toes amputation.) Social history: single, lives with family, smoking, full code Family history: no significant family history Medications and Allergies Allergies Allergy/AdvReac Type Severity Reaction Status Date / Time Penicillins Allergy Itching Verified 04/03/18 12:43 Home Medications Medication Instructions Recorded Confirmed Last Taken Type ALPRAZolam [Xanax TAB] 1 mg PO PRN PRN tablet 04/07/18 07/21/18 07/20/18 Rx HYDROcodone/APAP 5-325 [[place] 1 each PO Q6HR PRN #14 tablet 04/07/18 07/21/18 U nknown Rx 5-325 mg TAB] Albuterol Sulfate [Albuterol 0.63% 0.63 mg IH TID PRN #120 ml 05/09/18 07/21/18 07/20/18 Rx NEBS] Diabetic Supplies,Miscell [Enlite 1 each MC BID #1 miscell 05/09/18 07/21/18 Unknown Rx Serter] Furosemide [Lasix TAB] 40 mg PO QDAY #60 tablet 05/09/18 07/21/18 07/20/18 Rx Gabapentin [Neurontin] 300 mg PO TID #30 capsule 05/09/18 07/21/18 07/20/18 Rx Insulin NPH/Regular [NovoLIN 70/30] 10 unit SUB-Q BID #1 vial 05/09/18 07/21/18 Unknown Rx Ipratropium/Albuterol Sulfate 1 ampul IH QIDRT #120 ampul.neb 05/09/18 07/21/18 Unknown Rx [DUONEB *Not for PRN Use*] Lisinopril [Zestril TAB] 20 mg PO DAILY #30 tablet 05/09/18 07/21/18 07/20/18 Rx Nebulizer and Compressor [[place] 1 each MC QID #1 each 05/09/18 07/21/18 07/20/18 Rx Choice Nebulizer] Potassium Chloride [K-Dur] 20 meq PO QDAY #15 tablet 05/09/18 07/21/18 07/21/18 Rx Prednisone [predniSONE 10 mg 10 mg PO .TAPER #1 tab.ds.pk 05/09/18 07/21/18 07/21/18 Rx (6-Day Pack, 21 Tabs)] Zolpidem [Ambien] 5 mg PO QHS #15 tablet 05/09/18 07/21/18 07/21/18 Rx guaiFENesin/CODEINE [Robitussin AC] 10 ml PO Q4HR #120 ml 05/09/18 07/21/18 07/20/18 Rx levoFLOXacin [Levaquin TAB] 500 mg PO DAILY #5 tablet 05/09/18 07/21/18 07/20/18 Rx oxyCODONE /ACETAMINOPHEN [Percocet 1 tab PO Q4H PRN #12 tablet 05/09/18 07/21/18 Unknown Rx 5/325 mg] Sulfamethoxazole/Trimethoprim 1 each PO BID #10 tablet 05/26/18 07/21/18 Unknown Rx [Bactrim DS TAB] traMADol [Ultram 50 MG tab] 50 mg PO Q6HR PRN #11 tablet 05/26/18 07/21/18 07/21/18 Rx Lispro Insulin [Humalog] 10 unit SQ TID 07/21/18 07/21/18 07/19/18 History Active Meds: Active Medications Albuterol (Proventil) 2.5 mg IH Q4HRT PRN PRN Reason: Shortness Of Breath Last Admin: 07/21/18 21:50 Dose: 2.5 mg Documented by: Aspirin (Baby Aspirin) 81 mg PO QDAY [facility] Last Admin: 07/22/18 10:02 Dose: 81 mg Documented by: Carvedilol (Coreg) 6.25 mg PO BID [facility] Last Admin: 07/22/18 10:02 Dose: 6.25 mg Documented by: Furosemide (Lasix) 40 mg IV 0600,1800 [facility] Last Admin: 07/22/18 06:50 Dose: 40 mg Documented by: Gabapentin (Neurontin) 300 mg PO TID [facility] Last Admin: 07/22/18 13:59 Dose: 300 mg Documented by: Heparin Sodium (Porcine) (Heparin) 5,000 unit SUB-Q Q8HR [facility] Last Admin: 07/22/18 14:00 Dose: 5,000 unit Documented by: Insulin Human Lispro (Humalog) 0 unit SUB-Q ACHS [facility]; Protocol Last Admin: 07/22/18 14:09 Dose: 4 unit Documented by: Lisinopril (Zestril) 5 mg PO QDAY [facility] Last Admin: 07/22/18 10:02 Dose: 5 mg Documented by: Methylprednisolone Sodium Succinate (Solu-Medrol) 40 mg IV Q8HR [facility] Last Admin: 07/22/18 14:00 Dose: 40 mg Documented by: Oxycodone/Acetaminophen (Percocet 5/325) 1 tab PO Q6H PRN PRN Reason: Pain, Moderate (4-6) Last Admin: 07/22/18 13:59 Dose: 1 tab Documented by: Potassium Chloride (K-Dur) 20 meq PO QDAY [facility] Last Admin: 07/22/18 10:02 Dose: 20 meq Documented by: Zolpidem Tartrate (Ambien) 5 mg PO QHS PRN PRN Reason: Sleep Last Admin: 07/21/18 22:03 Dose: 5 mg Documented by: Review of Systems All systems: negative Physical Examination Vital signs: Vital Signs Temp Pulse Resp BP Pulse Ox 97.2 F L 92 H 22 128/91 94 07/21/18 07:50 07/21/18 07:50 07/21/18 07:50 07/21/18 07:50 07/21/18 07:50 General appearance: no acute distress, alert Eyes: non-icteric ENT: oropharynx moist Neck: supple, no JVD Ascultation: Bilateral: rales (Few rales.) Cardiovascular: regular rate and rhythm Gastrointestinal: normoactive bowel sounds, soft Integumentary: normal Extremities: no cyanosis, no edema Musculoskeletal: other (Amputation of Toes in left leg and amputation of great toe right leg.) Gait: normal gait normal mental status, non-focal exam, pupils equal and round, CN II-XII normal mood appropriate Results - Laboratory Findings CBC and BMP: 07/21/18 08:10 07/22/18 05:39 PT/INR, D-dimer PT 15.6 Sec. (12.2-14.9) H 07/21/18 08:10 INR 1.20 (0.87-1.13) H 07/21/18 08:10 Abnormal lab findings: Abnormal Labs 07/21/18 07/21/18 07/21/18 08:10 08:10 08:10 RBC 5.64 H Hgb 14.4 H Hct 45.1 H MCH 26 L RDW 20.9 H PT 15.6 H INR 1.20 H Sodium Chloride BUN Creatinine 0.5 L Glucose 150 H POC Glucose Calcium 8.2 L NT-Pro-B Natriuret Pep 2016 H Albumin 3.4 L 07/21/18 07/21/18 07/22/18 16:48 22:15 05:39 RBC Hgb Hct MCH RDW PT INR Sodium 135 L Chloride 94.6 L BUN 22 H Creatinine 0.5 L Glucose 239 H POC Glucose 251 H 217 H Calcium 8.3 L NT-Pro-B Natriuret Pep 3752 H Albumin 07/22/18 07/22/18 07:13 12:12 RBC Hgb Hct MCH RDW PT INR Sodium Chloride BUN Creatinine Glucose POC Glucose 205 H 262 H Calcium NT-Pro-B Natriuret Pep Albumin - Diagnostic Findings Chest x-ray: report reviewed (CARDIOMEGALY, MILD CHF.), image reviewed Assessment and Plan Patient presented to the ER with CC of SOB, MAGDIEL, w/up in the ER confirmed CHF exacerbation. She has so many Co morbid issues, including DM, Pul HTN with cor pulmonale, and CAD/CABG.most recent EF 35%. despite all the warning about her bad habits .she also has PVD, with left toes amputation, and right digital AMP.due to diabetic complications.Patient she is on home O2. Patient has history of smoking 1/2 pack x 35 years.Denies alcohol and drug abuse. 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 Patient allergic to penicillin. Patient says breathing better since admission.Patient is on 2 litres O2. O2 saturation 97%. - Patient Problems (1) COPD exacerbation Current Visit: Yes Status: Acute Plan to address problem: O2 2 litres via nasal canula. Albuterol/atrovent aerosol treatments q 6hours. Continue I/V solumedral. Continue S/C Heparin. Recommend famotidine. (2) CHF exacerbation Current Visit: Yes Status: Acute Plan to address problem: Management as per primary care and cardiology. (3) Acute respiratory failure Current Visit: No Status: Acute Plan to address problem: O2 2 litres via nasal canula. Albuterol/atrovent aerosol treatments q 6hours. Continue I/V solumedral. Continue S/C Heparin. Recommend famotidine. (4) Hypertension Current Visit: No Status: Acute Qualifiers: Hypertension type: essential hypertension Qualified Code(s): I10 - Essential (primary) hypertension Plan to address problem: Management as per primary care. (5) Type 2 diabetes mellitus Current Visit: No Status: Acute Qualifiers: Diabetes mellitus long term care phlebotomist insulin use: unspecified long term care phlebotomist insulin use status Diabetes mellitus complication status: without complication Qualified Code(s): E11.9 - Type 2 diabetes mellitus without complications Plan to address problem: Management as per primary care.
[2018-07-22 15:26] LABS: Bacteria,Urine 4+ /HPF (Negative); Bilirubin,Urine NEG (Negative); Blood,Urine NEG (Negative); Color,Urine Yellow (Yellow); Mucus,Urine FEW /HPF; Protein,Urine <15 mg/dL mg/dL (Negative); Urobilinogen,Urine < 2.0 mg/dL (<2.0)
--- NOTE | 2018-07-22 20:10 | Progress Note ---
Assessment and Plan - Patient Problems (1) CHF exacerbation Current Visit: Yes Status: Acute Plan to address problem: diuretics. (2) COPD exacerbation Current Visit: Yes Status: Acute Plan to address problem: oxygen/Neb/steroids. (3) CHF (congestive heart failure) Current Visit: No Status: Acute Qualifiers: Heart failure type: combined systolic and diastolic Heart failure chronicity: acute on chronic Qualified Code(s): I50.43 - Acute on chronic combined systolic (congestive) and diastolic (congestive) heart failure Plan to address problem: diuretics (4) Chronic pain Current Visit: No Status: Acute Plan to address problem: Pain control. Subjective Date of service: 07/22/18 Interval history: patient seen/examined, resting in bed, labs reviewed, case d/w patient, NAD, I have discussed d/c ho tomorrow with her, and she is in agreement, as she is doing much better.She has oxygen at home, as well as nebs/MDI. I will give tapering steroids.She will see me in the office on saturday. Objective - Constitutional Vitals: Vital Signs - 12hr 07/22/18 07/22/18 07/22/18 08:54 08:55 09:00 Temperature 97.3 F L Pulse Rate 89 98 H Respiratory 20 Rate Blood Pressure 175/101 Blood Pressure [Right] O2 Sat by Pulse 91 Oximetry 07/22/18 07/22/18 07/22/18 10:00 10:02 12:13 Temperature Pulse Rate 86 101 H Respiratory 18 20 Rate Blood Pressure 130/67 122/74 Blood Pressure [Right] O2 Sat by Pulse 97 97 Oximetry 07/22/18 07/22/18 07/22/18 12:14 13:40 17:45 Temperature 97.6 F 98.1 F Pulse Rate 76 88 Respiratory 18 18 Rate Blood Pressure 124/67 Blood Pressure 166/57 [Right] O2 Sat by Pulse 100 93 Oximetry 07/22/18 17:47 Temperature 97.6 F Pulse Rate Respiratory Rate Blood Pressure Blood Pressure [Right] O2 Sat by Pulse Oximetry General appearance: Present: no acute distress, well-nourished - EENT Eyes: PERRL, EOM intact ENT: hearing intact, clear oral mucosa Ears: bilateral: normal - Neck Neck: supple, normal ROM - Respiratory Respiratory effort: normal Respiratory: bilateral: CTA - Breasts Breasts: deferred - Cardiovascular Rhythm: regular Heart Sounds: Present: S1 & S2. Absent: gallop, rub Extremities: pulses intact, No edema, normal color, Full ROM - Gastrointestinal General gastrointestinal: Present: soft, non-tender, non-distended, normal bowel sounds Rectal Exam: deferred - Genitourinary Female genitourinary: deferred - Integumentary Integumentary: clear, warm, dry - Musculoskeletal Musculoskeletal: 1, strength equal bilaterally - Neurologic Neurologic: moves all extremities - Psychiatric Psychiatric: memory intact, appropriate mood/affect, intact judgment & insight - Labs CBC & Chem 7: 07/21/18 08:10 07/22/18 05:39 Labs: Abnormal lab results 07/21/18 07/22/18 07/22/18 Range/Units 22:15 05:39 07:13 Sodium 135 L (137-145) mmol/L Chloride 94.6 L (98-107) mmol/L BUN 22 H (7-17) mg/dL Creatinine 0.5 L (0.7-1.2) mg/dL Glucose 239 H (65-100) mg/dL POC Glucose 217 H 205 H (70-105) Calcium 8.3 L (8.4-10.2) mg/dL NT-Pro-B Natriuret Pep 3752 H (0-900) pg/mL 07/22/18 07/22/18 Range/Units 12:12 17:10 Sodium (137-145) mmol/L Chloride (98-107) mmol/L BUN (7-17) mg/dL Creatinine (0.7-1.2) mg/dL Glucose (65-100) mg/dL POC Glucose 262 H 272 H (70-105) Calcium (8.4-10.2) mg/dL NT-Pro-B Natriuret Pep (0-900) pg/mL Medications & Allergies - Medications Allergies/Adverse Reactions: Allergies Penicillins Allergy (Verified 04/03/18 12:43) Itching Home Medications: Home Medications Medication Instructions Recorded Confirmed Last Taken Type ALPRAZolam [Xanax TAB] 1 mg PO PRN PRN tablet 04/07/18 07/21/18 07/20/18 Rx HYDROcodone/APAP 5-325 [[place] 1 each PO Q6HR PRN #14 tablet 04/07/18 07/21/18 Unknown Rx 5-325 mg TAB] Albuterol Sulfate [Albuterol 0.63% 0.63 mg IH TID PRN #120 ml 05/09/18 07/21/18 07/20/18 Rx NEBS] Diabetic Supplies,Miscell [Enlite 1 each MC BID #1 miscell 05/09/18 07/21/18 Unknown Rx Serter] Furosemide [Lasix TAB] 40 mg PO QDAY #60 tablet 05/09/18 07/21/18 07/20/18 Rx Gabapentin [Neurontin] 300 mg PO TID #30 capsule 05/09/18 07/21/18 07/20/18 Rx Insulin NPH/Regular [NovoLIN 70/30] 10 unit SUB-Q BID #1 vial 05/09/18 07/21/18 Unknown Rx Ipratropium/Albuterol Sulfate 1 ampul IH QIDRT #120 ampul.neb 05/09/18 07/21/18 Unknown Rx [DUONEB *Not for PRN Use*] Lisinopril [Zestril TAB] 20 mg PO DAILY #30 tablet 05/09/18 07/21/18 07/20/18 Rx Nebulizer and Compressor [[place] 1 each MC QID #1 each 05/09/18 07/21/18 07/20/18 Rx Choice Nebulizer] Potassium Chloride [K-Dur] 20 meq PO QDAY #15 tablet 05/09/18 07/21/18 07/21/18 Rx Prednisone [predniSONE 10 mg 10 mg PO .TAPER #1 tab.ds.pk 05/09/18 07/21/18 07/21/18 Rx (6-Day Pack, 21 Tabs)] Zolpidem [Ambien] 5 mg PO QHS #15 tablet 05/09/18 07/21/18 07/21/18 Rx guaiFENesin/CODEINE [Robitussin AC] 10 ml PO Q4HR #120 ml 05/09/18 07/21/18 07/20/18 Rx levoFLOXacin [Levaquin TAB] 500 mg PO DAILY #5 tablet 05/09/18 07/21/18 07/20/18 Rx oxyCODONE /ACETAMINOPHEN [Percocet 1 tab PO Q4H PRN #12 tablet 05/09/18 07/21/18 Unknown Rx 5/325 mg] Sulfamethoxazole/Trimethoprim 1 each PO BID #10 tablet 05/26/18 07/21/18 Unknown Rx [Bactrim DS TAB] traMADol [Ultram 50 MG tab] 50 mg PO Q6HR PRN #11 tablet 05/26/18 07/21/18 07/21/18 Rx Lispro Insulin [Humalog] 10 unit SQ TID 07/21/18 07/21/18 07/19/18 History Active Medications: Generic Name Dose Route Start Last Admin Trade Name Freq PRN Reason Stop Dose Admin Albuterol 2.5 mg 07/21/18 17:00 07/21/18 21:50 Proventil IH 2.5 mg Q4HRT PRN Administration Shortness Of Breath Aspirin 81 mg 07/22/18 10:00 07/22/18 10:02 Baby Aspirin PO 81 mg QDAY LUZ Administration Carvedilol 6.25 mg 07/22/18 10:00 07/22/18 10:02 Coreg PO 6.25 mg BID LUZ Administration Furosemide 40 mg 07/21/18 18:00 07/22/18 17:48 Lasix IV 40 mg 0600,1800 LUZ Administration Gabapentin 300 mg 07/21/18 20:00 07/22/18 13:59 Neurontin PO 300 mg TID LUZ Administration Heparin Sodium (Porcine) 5,000 unit 07/21/18 22:00 07/22/18 14:00 Heparin SUB-Q 5,000 unit Q8HR LUZ Administration Insulin Human Lispro 0 unit 07/21/18 22:00 07/22/18 17:46 Humalog SUB-Q 4 unit ACHS LUZ Administration Protocol Lisinopril 5 mg 07/22/18 10:00 07/22/18 10:02 Zestril PO 5 mg QDAY [facility] Administration Methylprednisolone Sodium Succinate 40 mg 07/21/18 22:00 07/22/18 14:00 Solu-Medrol IV 40 mg Q8HR LUZ Administration Oxycodone/Acetaminophen 1 tab 07/21/18 12:27 07/22/18 13:59 Percocet 5/325 PO 1 tab Q6H PRN Administration Pain, Moderate (4-6) Potassium Chloride 20 meq 07/22/18 10:00 07/22/18 10:02 K-Dur PO 20 meq QDAY [facility] Administration Zolpidem Tartrate 5 mg 07/21/18 15:38 07/21/18 22:03 Ambien PO 5 mg QHS PRN Administration Sleep
[2018-07-22] MEDS: AMBIEN PO PRN (21:21)
[2018-07-23] MEDS: PERCOCET 5/325 PO PRN ×3 (05:21→17:11)
[2018-07-23] MEDS: HEPARIN SUB-Q SCH ×2 (05:22→14:26)
[2018-07-23] MEDS: SOLU-Medrol IV SCH ×2 (05:22→14:25)
[2018-07-23] MEDS: LASIX IV SCH ×2 (05:22→18:14)
[2018-07-23 06:35] LABS: BUN/Creatinine Ratio 54; Blood Urea Nitrogen 27 mg/dL (7-17); Calcium 8.2 mg/dL (8.4-10.2); Hemolysis Index 75
--- NOTE | 2018-07-23 08:03 | XRay Report ---
AP CHEST: HISTORY: CHF Status post CABG. Cardiomegaly and pulmonary venous congestion are stable since 07/21/18. The lungs are generally clear. Trace pleural effusions have apparently resolved. No infiltrate or pneumothorax. IMPRESSION: Mild improvement. Small pleural effusions have resolved since the exam 2 days ago. Cardiomegaly and pulmonary venous congestion persists.
[2018-07-23] MEDS: HumaLOG SUB-Q SCH ×3 (09:30→18:12)
[2018-07-23] MEDS: NEURONTIN PO SCH ×2 (09:31→14:26)
--- NOTE | 2018-07-23 09:32 | Progress Note ---
Assessment and Plan COPD exacerbation Active cigarette smoker Cor pulmonale Severe pulm HTN Hx of CAD s/p 3v CABG in 2014 HTN Prior CVA Diabetes Obesity PVD s/p TMA Ischemic cardiomyopathy, EF 30-35%. Recommendations: Medical management for ischemic cardiomyopathy and coronary artery disease. Advised smoking cessation. Otherwise, conservative cardiac management. Subjective Date of service: 07/23/18 Interval history: Patient reports her breathing is better. Objective Vital Signs Temp Pulse Resp BP BP Pulse Ox 07/23/18 09:02 98 07/23/18 08:57 98 07/23/18 08:31 98.1 F 85 20 121/78 96 07/23/18 05:11 98.2 F 89 16 133/88 96 07/22/18 23:52 98.3 F 86 17 116/73 97 07/22/18 22:05 97 07/22/18 21:23 20 07/22/18 21:20 85 115/54 07/22/18 19:32 98.3 F 88 17 115/54 96 07/22/18 17:47 97.6 F 07/22/18 17:45 88 18 124/67 93 07/22/18 13:40 98.1 F 76 18 166/57 100 07/22/18 12:14 97.6 F 07/22/18 12:13 101 H 20 122/74 97 07/22/18 10:02 86 130/67 07/22/18 10:00 18 97 - Physical Examination General: No Apparent Distress HEENT: Positive: PERRL Neck: Positive: trachea midline Cardiac: Positive: Reg Rate and Rhythm Lungs: Positive: Decreased Breath Sounds Neuro: Positive: Grossly Intact Extremities: Absent: edema - Labs and Meds Comprehensive Metabolic Panel 07/23/18 Range/Units 05:37 Sodium 135 L (137-145) mmol/L Potassium 4.3 (3.6-5.0) mmol/L Chloride 95.2 L (98-107) mmol/L Carbon Dioxide 27 (22-30) mmol/L BUN 27 H (7-17) mg/dL Creatinine 0.5 L (0.7-1.2) mg/dL Glucose 332 H (65-100) mg/dL Calcium 8.2 L (8.4-10.2) mg/dL
[2018-07-23] MEDS: BABY ASPIRIN PO SCH (11:17)
[2018-07-23] MEDS: ZESTRIL PO SCH (11:18)
[2018-07-23] MEDS: K-DUR PO SCH (11:18)
[2018-07-23] MEDS: COREG PO SCH (11:18)
[2018-07-23 18:29] VITALS: BP 126/72
--- NOTE | 2018-07-23 18:55 | Progress Note ---
Assessment and Plan Patient says breathing better. Feeling better.O2 saturation 96% on room air.Patient is going home. Told her come to my office in 2 weeks for pulmonary follow up. - Patient Problems (1) COPD exacerbation Current Visit: Yes Status: Chronic Plan to address problem: O2 2 litres via nasal canula. Albuterol/atrovent aerosol treatments q 6hours. Continue I/V solumedral. Continue S/C Heparin. Recommend famotidine. Counselled to stop smoking. PFTs as out patient. (2) CHF exacerbation Current Visit: Yes Status: Chronic Plan to address problem: Management as per primary care and cardiology. (3) Acute respiratory failure Current Visit: No Status: Acute Plan to address problem: O2 2 litres via nasal canula. Albuterol/atrovent aerosol treatments q 6hours. Continue I/V solumedral. Continue S/C Heparin. Recommend famotidine. (4) Hypertension Current Visit: No Status: Acute Qualifiers: Hypertension type: essential hypertension Qualified Code(s): I10 - Essential (primary) hypertension Plan to address problem: Management as per primary care. (5) Type 2 diabetes mellitus Current Visit: No Status: Acute Qualifiers: Diabetes mellitus slasher insulin use: unspecified slasher insulin use status Diabetes mellitus complication status: without complication Qualified Code(s): E11.9 - Type 2 diabetes mellitus without complications Plan to address problem: Management as per primary care. Subjective Date of service: 07/23/18 Interval history: Patient says breathing better. Feeling better.O2 saturation 96% on room air.Patient is going home. Told her come to my office in 2 weeks for pulmonary follow up. Objective Vital Signs - 12hr 07/23/18 07/23/18 07/23/18 08:31 08:57 09:02 Temperature 98.1 F Pulse Rate 85 Pulse Rate [ Apical] Respiratory 20 Rate Blood Pressure 121/78 O2 Sat by Pulse 96 98 98 Oximetry 07/23/18 07/23/18 07/23/18 10:00 11:18 16:29 Temperature 98.0 F Pulse Rate 85 82 Pulse Rate [ 92 H Apical] Respiratory 20 20 20 Rate Blood Pressure 121/78 126/72 O2 Sat by Pulse 98 96 Oximetry 07/23/18 17:11 Temperature Pulse Rate Pulse Rate [ Apical] Respiratory 20 Rate Blood Pressure O2 Sat by Pulse Oximetry Constitutional: no acute distress, alert Eyes: non-icteric ENT: oropharynx moist Neck: supple, no JVD Ascultation: Bilateral: rales (Few rales.) Cardiovascular: regular rate and rhythm Gastrointestinal: normoactive bowel sounds, soft Integumentary: normal Extremities: no cyanosis, no edema Neurologic: normal mental status, non-focal exam, pupils equal and round, CN II- XII normal Psychiatric: mood appropriate CBC and BMP: 07/21/18 08:10 07/23/18 05:37 ABG, PT/INR, D-dimer: ABG POC ABG pH 7.440 (7.35-7.45) 07/23/18 08:58 POC ABG pCO2 38.5 (35-45) 07/23/18 08:58 POC ABG pO2 86 (80-105) 07/23/18 08:58 POC ABG HCO3 26.2 07/23/18 08:58 POC ABG Total CO2 27 07/23/18 08:58 POC ABG O2 Sat 97 07/23/18 08:58 PT/INR, D-dimer PT 15.6 Sec. (12.2-14.9) H 07/21/18 08:10 INR 1.20 (0.87-1.13) H 07/21/18 08:10 Abnormal lab findings: Abnormal Labs 07/21/18 07/21/18 07/21/18 08:10 08:10 08:10 RBC 5.64 H Hgb 14.4 H Hct 45.1 H MCH 26 L RDW 20.9 H PT 15.6 H INR 1.20 H Sodium Chloride BUN Creatinine 0.5 L Glucose 150 H POC Glucose Calcium 8.2 L NT-Pro-B Natriuret Pep 2016 H Albumin 3.4 L 07/21/18 07/21/18 07/22/18 16:48 22:15 05:39 RBC Hgb Hct MCH RDW PT INR Sodium 135 L Chloride 94.6 L BUN 22 H Creatinine 0.5 L Glucose 239 H POC Glucose 251 H 217 H Calcium 8.3 L NT-Pro-B Natriuret Pep 3752 H Albumin 07/22/18 07/22/18 07/22/18 07:13 12:12 17:10 RBC Hgb Hct MCH RDW PT INR Sodium Chloride BUN Creatinine Glucose POC Glucose 205 H 262 H 272 H Calcium NT-Pro-B Natriuret Pep Albumin 07/22/18 07/23/18 07/23/18 20:49 05:37 06:10 RBC Hgb Hct MCH RDW PT INR Sodium 135 L Chloride 95.2 L BUN 27 H Creatinine 0.5 L Glucose 332 H POC Glucose 288 H 228 H Calcium 8.2 L NT-Pro-B Natriuret Pep 3230 H Albumin 07/23/18 07/23/18 11:31 17:23 RBC Hgb Hct MCH RDW PT INR Sodium Chloride BUN Creatinine Glucose POC Glucose 279 H 246 H Calcium NT-Pro-B Natriuret Pep Albumin
--- NOTE | 2018-07-23 19:18 | Discharge Summary ---
Providers - Providers Date of Admission: 07/21/18 08:52 Date of discharge: 07/23/18 Attending physician: SANTY LYNCH 07/21/18 08:52 Consult to Physician [CONS] Urgent Comment: Consulting Provider: DUTCH CHEEMA Physician Instructions: Reason For Exam: chf 07/22/18 10:37 Consult to Physician [CONS] Routine Comment: Consulting Provider: NILS IRENE Physician Instructions: Reason For Exam: COPD exacerbation Primary care physician: SANTY LYNCH Hospitalization Reason for admission: Copd exac/CHF exac, A/C, Syst/Diast. Condition: Fair Hospital course: patient presented with CC of SOB/MAGDIEL, to the ED, w/up, and admitted for sxs control, .she was treated with diuretics, steroids, BR, and oxygen. patient was seen each day, and tolerated her tx fairly well. she responded well to her tx. she was seen /examined today, and fairly stable, She will be D/c back home on tapering steroids. She will see me in the office on saturday, to monitor her BG.She will follow up up with pulm. Disposition: TO HOME OR SELFCARE - Discharge Diagnoses (1) CHF exacerbation Status: Chronic (2) COPD exacerbation Status: Chronic (3) CHF (congestive heart failure) Status: Chronic Qualifiers: Heart failure type: combined systolic and diastolic Heart failure chronicity: acute on chronic Qualified Code(s): I50.43 - Acute on chronic combined systolic (congestive) and diastolic (congestive) heart failure (4) Chronic pain Status: Chronic Core Measure Documentation - Palliative Care Palliative Care/ Comfort Measures: Not Applicable - Core Measures Any of the following diagnoses?: none Exam - Constitutional Vitals: Temp Pulse Resp BP Pulse Ox 98.0 F 82 20 126/72 96 07/23/18 16:29 07/23/18 16:29 07/23/18 17:11 07/23/18 16:29 07/23/18 16:29 General appearance: Present: no acute distress, well-nourished - EENT Eyes: Present: PERRL ENT: hearing intact, clear oral mucosa - Neck Neck: Present: supple, normal ROM - Respiratory Respiratory effort: normal Respiratory: bilateral: CTA - Cardiovascular Heart Sounds: Present: S1 & S2. Absent: rub, click - Extremities Extremities: pulses symmetrical, No edema Peripheral Pulses: within normal limits - Abdominal General gastrointestinal: Present: soft, non-tender, non-distended, normal bowel sounds Female genitourinary: Present: deferred - Rectal Rectal Exam: deferred - Integumentary Integumentary: Present: clear, warm, dry - Musculoskeletal Musculoskeletal: gait normal, strength equal bilaterally - Psychiatric Psychiatric: appropriate mood/affect, intact judgment & insight - Neurologic Neurologic: CNII-XII intact, moves all extremities Plan Activity: no restrictions Diet: diabetic
== END 2018-07-23 20:00 | disposition home or self-care (01) | DRG 291 ==
LOC: ED 07:33 → 4A 08:52
PROVIDERS: ADMIT Internal Medicine Hematology & Oncology; ATTEND Internal Medicine Hematology & Oncology
PROC: 4A033R1 Measurement of Arterial Saturation, Peripheral, Percutaneous Approach (ICD-10-PCS; principal; 2018-07-23)
DX: I11.0 Hypertensive heart disease with heart failure (principal); J96.20 Acute and chronic respiratory failure, unspecified whether with hypoxia or hypercapnia; I50.43 Acute on chronic combined systolic (congestive) and diastolic (congestive) heart failure; E66.01 Morbid (severe) obesity due to excess calories; E11.40 Type 2 diabetes mellitus with diabetic neuropathy, unspecified; E78.5 Hyperlipidemia, unspecified; I27.20 Pulmonary hypertension, unspecified; F17.210 Nicotine dependence, cigarettes, uncomplicated; E11.51 Type 2 diabetes mellitus with diabetic peripheral angiopathy without gangrene; I27.81 Cor pulmonale (chronic); G89.29 Other chronic pain; I25.10 Atherosclerotic heart disease of native coronary artery without angina pectoris; J44.1 Chronic obstructive pulmonary disease with (acute) exacerbation; I42.0 Dilated cardiomyopathy; Z88.0 Allergy status to penicillin; Z71.3 Dietary counseling and surveillance; Z95.1 Presence of aortocoronary bypass graft; Z86.73 Personal history of transient ischemic attack (TIA), and cerebral infarction without residual deficits; Z89.411 Acquired absence of right great toe; Z89.421 Acquired absence of other right toe(s); Z89.412 Acquired absence of left great toe; Z79.4 Long term (current) use of insulin; Z79.899 Other long term (current) drug therapy; Z91.19 Patient's noncompliance with other medical treatment and regimen; Z71.6 Tobacco abuse counseling; Z99.81 Dependence on supplemental oxygen
CPT/HCPCS: 36415; 36600; 71045; 80048; 80053; 81001; 82550; 82803; 82962; 83735; 83880; 84484; 85025; 85610; 93005; 93010; 94640; 94760; 99406; G0378; J1644; J1815; J1940; J2930

== ENCOUNTER 2018-08-09 19:36 | Inpatient (IN) | payer MEDICAID ==
--- NOTE | 2018-08-09 20:05 | Emergency Department Report ---
ED Shortness of Breath HPI - General Chief Complaint: Dyspnea/Respdistress Stated Complaint: MAGDIEL Time Seen by Provider: 08/09/18 20:02 Source: patient, EMS Mode of arrival: Stretcher Limitations: No Limitations - History of Present Illness Initial Comments: Patient is a 57-year-old female presents to emergency room with complaints of shortness of breath and cough and difficulty breathing. Patient states she's been taking breathing treatments all day and are not working. Patient denies chest pain. Patient denies fever or chills. Patient states his symptoms are worsening. Patient states symptoms started 3 days ago. Patient states she has a history of COPD and CHF. Patient is tachycardic upon arrival. Patient states she ran out of her beta jesús about 4 days ago MD Complaint: shortness of breath, cough -: Sudden Severity: severe Consistency: constant Improves With: oxygen, rest, bronchodilators, upright position, medication Worsens With: lying flat, exertion Known History Of: COPD Context: medication noncompliance Associated Symptoms: cough, sputum production Treatments Prior to Arrival: oxygen, bronchodilator - Related Data Home Oxygen Therapy: No Home Medications Medication Instructions Recorded Confirmed Last Taken Aspirin [Aspirin BABY CHEW TAB] 81 mg PO DAILY 08/10/18 08/10/18 Unknown AtorvaSTATin [Lipitor] 40 mg PO QHS 08/10/18 08/10/18 Unknown Previous Rx's Medication Instructions Recorded Last Taken Type ALPRAZolam [Xanax TAB] 1 mg PO PRN PRN tablet 04/07/18 07/20/18 Rx Furosemide [Lasix TAB] 40 mg PO QDAY #60 tablet 05/09/18 07/20/18 Rx Gabapentin [Neurontin] 300 mg PO TID #30 capsule 05/09/18 07/20/18 Rx Insulin NPH/Regular [NovoLIN 70/30] 10 unit SUB-Q BID #1 vial 05/09/18 Unknown Rx Ipratropium/Albuterol Sulfate 1 ampul IH QIDRT #120 ampul.neb 05/09/18 Unknown Rx [DUONEB *Not for PRN Use*] Lisinopril [Zestril TAB] 20 mg PO DAILY #30 tablet 05/09/18 07/20/18 Rx Zolpidem [Ambien] 5 mg PO QHS #15 tablet 05/09/18 07/21/18 Rx oxyCODONE /ACETAMINOPHEN [Percocet 1 tab PO Q4H PRN #12 tablet 05/09/18 Unknown Rx 5/325 mg] Allergies Allergy/AdvReac Type Severity Reaction Status Date / Time Penicillins Allergy Itching Verified 04/03/18 12:43 ED Review of Systems ROS: Stated complaint: MAGDIEL Other details as noted in HPI Constitutional: denies: chills, fever Eyes: denies: eye pain, eye discharge, vision change ENT: denies: ear pain, throat pain Respiratory: cough, shortness of breath, SOB with exertion, SOB at rest, wheezing Cardiovascular: edema. denies: chest pain, palpitations Endocrine: no symptoms reported Gastrointestinal: denies: abdominal pain, nausea, diarrhea Genitourinary: denies: urgency, dysuria, discharge Musculoskeletal: denies: back pain, joint swelling, arthralgia Skin: denies: rash, lesions Neurological: denies: headache, weakness, paresthesias Psychiatric: denies: anxiety, depression Hematological/Lymphatic: denies: easy bleeding, easy bruising ED Past Medical Hx - Past Medical History Previous Medical History?: Yes Hx Hypertension: Yes Hx CVA: Yes (TIA) Hx Heart Attack/AMI: No Hx Congestive Heart Failure: No Hx Diabetes: Yes Hx Deep Vein Thrombosis: No Hx Pulmonary Embolism: No Hx Liver Disease: No Hx Sickle Cell Disease: No Hx Arthritis: No Hx Seizures: No Hx Kidney Stones: No Hx Asthma: Yes Hx COPD: Yes Hx Tuberculosis: No Hx Dementia: No Hx HIV: No Additional medical history: Diabetic neuropathy, previous CVA per medical record - Surgical History Past Surgical History?: Yes Hx Coronary Stent: No Hx Open Heart Surgery: Yes (CABG x3) Hx Internal Defibrillator: No Hx Cholecystectomy: No Additional Surgical History: tonsillectomy. all toes on left foot amputated. right great toe amputated - Family History Family history: no significant - Social History Smoking Status: Never Smoker Substance Use Type: None - Medications Home Medications: Home Medications Medication Instructions Recorded Confirmed Last Taken Type ALPRAZolam [Xanax TAB] 1 mg PO PRN PRN tablet 04/07/18 08/10/18 07/20/18 Rx Furosemide [Lasix TAB] 40 mg PO QDAY #60 tablet 05/09/18 08/10/18 07/20/18 Rx Gabapentin [Neurontin] 300 mg PO TID #30 capsule 05/09/18 08/10/18 07/20/18 Rx Insulin NPH/Regular [NovoLIN 70/30] 10 unit SUB-Q BID #1 vial 05/09/18 07/21/18 Unknown Rx Ipratropium/Albuterol Sulfate 1 ampul IH QIDRT #120 ampul.neb 05/09/18 08/10/18 Unknown Rx [DUONEB *Not for PRN Use*] Lisinopril [Zestril TAB] 20 mg PO DAILY #30 tablet 05/09/18 08/10/18 07/20/18 Rx Zolpidem [Ambien] 5 mg PO QHS #15 tablet 05/09/18 08/10/18 07/21/18 Rx oxyCODONE /ACETAMINOPHEN [Percocet 1 tab PO Q4H PRN #12 tablet 05/09/18 07/21/18 Unknown Rx 5/325 mg] Aspirin [Aspirin BABY CHEW TAB] 81 mg PO DAILY 08/10/18 08/10/18 Unknown History AtorvaSTATin [Lipitor] 40 mg PO QHS 08/10/18 08/10/18 Unknown History ED Physical Exam - General Limitations: No Limitations General appearance: alert, in distress - Head Head exam: Present: atraumatic, normocephalic - Eye Eye exam: Present: normal appearance, PERRL Pupils: Present: normal accommodation - ENT ENT exam: Present: mucous membranes dry - Neck Neck exam: Present: normal inspection - Respiratory Respiratory exam: Present: respiratory distress, wheezes, rales, accessory muscle use - Cardiovascular Cardiovascular Exam: Present: regular rate, normal rhythm. Absent: systolic murmur, diastolic murmur, rubs, gallop - GI/Abdominal GI/Abdominal exam: Present: soft, normal bowel sounds. Absent: distended, tenderness, guarding - Extremities Exam Extremities exam: Present: normal inspection, pedal edema. Absent: tenderness, calf tenderness - Back Exam Back exam: Present: normal inspection - Neurological Exam Neurological exam: Present: alert, oriented X3 - Psychiatric Psychiatric exam: Present: normal affect, normal mood - Skin Skin exam: Present: warm, dry, intact, normal color. Absent: rash ED Course Vital Signs 08/09/18 08/09/18 08/09/18 19:51 20:00 21:10 Temperature 99.9 F H Pulse Rate 153 H 148 H Respiratory 16 16 Rate Blood Pressure 105/66 Blood Pressure 125/78 135/85 [Right] O2 Sat by Pulse 24 L 98 98 Oximetry 08/09/18 08/10/18 08/10/18 22:00 00:42 01:18 Temperature Pulse Rate 143 H 142 H 97 H Respiratory 16 Rate Blood Pressure 130/74 108/83 Blood Pressure 108/68 [Right] O2 Sat by Pulse 98 Oximetry - Reevaluation(s) Reevaluation #1: Initial evaluation done. Report received from EMS. Patient had solu Medrol 125 mg, albuterol and 1 gram mag run in route 08/09/18 20:02 Patient's breathing has improved. 08/09/18 21:00 She refused CTA. Patient states she is anxious about the test. Patient will be given Ativan. Patient agrees to have test after given Ativan 08/09/18 23:00 Patient still continues to be tachycardic. Patient will be given Cardizem. 08/10/18 00:32 A heart rate responded well to Cardizem. Discussed all results with patient. Discussed plan of care patient. Patient agrees to admission. 08/10/18 01:25 - Consultations Consultation #1: 08/10/18 00:40 Discussed case with the patient's primary care. Dr. Rider to admit patient. ED Medical Decision Making - Lab Data Result diagrams: 08/09/18 20:16 08/09/18 20:16 - EKG Data -: EKG Interpreted by De EKG shows normal: sinus rhythm, axis, intervals, QRS complexes, ST-T waves Rate: tachycardia - Radiology Data Radiology results: report reviewed FINAL REPORT EXAM: XR CHEST 1V AP HISTORY: MAGDIEL TECHNIQUE: Single AP chest PRIORS: None. FINDINGS: There is mild cardiac enlargement. Sternotomy wires are noted. No focal pulmonary infiltrate identified. No pleural fluid collection seen. The pulmonary vasculature is unremarkable. IMPRESSION: Mild cardiomegaly No acute pulmonary findings - Medical Decision Making Patient is a 57-year-old female presents emergency room with complaints of shortness of breath and difficulty in breathing. Patient found to be hypoxic. Patient found to have a COPD and CHF exacerbation. Patient was admitted to the patient's primary care. CTA done and negative for PE however shows right-sided heart failure. all results reviewed - Differential Diagnosis chf. copd exac. edema. sob. hypoxia Critical Care Time: Yes Critical care attestation.: If time is entered above; I have spent that time in minutes in the direct care of this critically ill patient, excluding procedure time. Critical Care Time: 55 minutes ED Disposition Clinical Impression: COPD exacerbation, SOB (shortness of breath), Tachycardia, Hypoxia CHF (congestive heart failure) Qualifiers: Heart failure type: unspecified Heart failure chronicity: acute on chronic Qualified Code(s): I50.9 - Heart failure, unspecified CHF exacerbation Qualifiers: Heart failure type: unspecified Qualified Code(s): I50.9 - Heart failure, unspecified Disposition: DC-09 OP ADMIT IP TO THIS HOSP Is pt being admited?: Yes Does the pt Need Aspirin: No Condition: Critical Time of Disposition: 00:34
[2018-08-09] MEDS ORDERED: DUONEB *Not for PRN Use IH ONE (20:07)
[2018-08-09] MEDS ORDERED: SOLU-Medrol IV ONE (20:08)
[2018-08-09] MEDS ORDERED: MAGNESIUM SULFATE 2GM/50ML 2 GM/50 ML BAG IV ONE (20:08)
--- NOTE | 2018-08-09 20:22 | XRay Report ---
FINAL REPORT EXAM: XR CHEST 1V AP HISTORY: MAGDIEL TECHNIQUE: Single AP chest PRIORS: None. FINDINGS: There is mild cardiac enlargement. Sternotomy wires are noted. No focal pulmonary infiltrate identified. No pleural fluid collection seen. The pulmonary vasculatur e is unremarkable. IMPRESSION: Mild cardiomegaly No acute pulmonary findings
[2018-08-09 20:24] LABS: Basophils # (Auto) 0.1 K/mm3 (0.0-0.1); Basophils % (Auto) 1.7 % (0.0-1.8); Eosinophils # (Auto) 0.2 K/mm3 (0.0-0.4); Eosinophils % (Auto) 2.9 % (0.0-4.3); Hematocrit 42.4 % (30.3-42.9); Hemoglobin 13.2 gm/dl (10.1-14.3); Lymphocytes # (Auto) 1.6 K/mm3 (1.2-5.4); Lymphocytes % (Auto) 22.6 % (13.4-35.0); Mean Corpuscular HGB Conc 31 % (30-34); Mean Corpuscular Volume 81 fl (79-97); Monocytes # (Auto) 0.4 K/mm3 (0.0-0.8); Monocytes % (Auto) 5.2 % (0.0-7.3); Platelet Count 306 K/mm3 (140-440); Red Blood Count 5.22 M/mm3 (3.65-5.03)
[2018-08-09 20:27] LABS: Red Cell Distribution Width 21.1 % (13.2-15.2)
[2018-08-09] MEDS ORDERED: DILAUDID IV ONE (20:32)
[2018-08-09 20:50] LABS: Alanine Aminotransferase 9 units/L (7-56); Albumin 3.2 g/dL (3.9-5); BUN/Creatinine Ratio 24; Blood Urea Nitrogen 17 mg/dL (7-17); Calcium 7.6 mg/dL (8.4-10.2); Hemolysis Index 9
[2018-08-09] MEDS ORDERED: LOPRESSOR IV ONE ×2 (21:28→23:20)
[2018-08-09] MEDS ORDERED: NACL 0.9% 250ML 250 ML ONE (22:18)
[2018-08-09] MEDS ORDERED: ATIVAN ONE (22:41)
[2018-08-09] MEDS ORDERED: NACL 0.9% 250ML 250 ML IV ONE (23:20)
[2018-08-09] MEDS ORDERED: ATIVAN IV ONE (23:21)
--- NOTE | 2018-08-09 23:46 | Cat Scan Report ---
FINAL REPORT EXAM: CT ANGIO CHEST HISTORY: sob. TECHNIQUE: CT chest CT angiogram with reconstructions PRIORS: Comparison is dated May 07, 2018 FINDINGS: There is no evidence of filling defect within the central pulmonary vasculature to suggest the presen ce of acute pulmonary embolus. There is a prominent AP window lymph node 0.98 x 1.7 centimeters unchanged. Within the left upper lob e there is a noncalcified nodule 0.76 centimeters. Within the right upper lobe there is a noncalcifie d peripheral nodule 0.57 centimeters. These are stable and unchanged from prior exam. Most likely mallika ign. Consider additional six-month follow-up. Heart and great vessels are unremarkable. The aorta is normal in caliber. There are bilateral pleural effusions small to moderate larger on the left there is fluid noted withi n the major fissure on the right. Pulmonary paraseptal and centrilobular emphysematous changes are again noted. There is ascites present within upper abdomen which was present previously There is reflux of contrast into inferior vena cava and hepatic veins. IMPRESSION: Bilateral pleural effusions Findings suggestive of right heart failure Pulmonary emphysematous changes Ascites noted in the upper abdomen Stable appearance of bilateral pulmonary nodules. Consider additional six-month followup. No CT evidence of acute pulmonary embolus
[2018-08-09] MEDS ORDERED: LASIX IV ONE (23:59)
[2018-08-10] MEDS ORDERED: MAXIPIME/NS 2 GM/100 ML 2 GM/100 ML BAG IV ONE
[2018-08-10] MEDS ORDERED: CARDIZEM IV ONE (00:31)
[2018-08-10] MEDS ORDERED: LOPRESSOR IV ONE ×2 (08:43→13:54)
[2018-08-10] MEDS ORDERED: HumuLIN R SUB-Q ONE (08:44)
[2018-08-10] MEDS: LASIX IV SCH ×3 (09:37→21:32)
[2018-08-10] MEDS: SOLU-Medrol IV SCH ×3 (09:39→21:32)
--- NOTE | 2018-08-10 12:08 | Consultation ---
History of Present Illness Consult date: 08/10/18 Consult reason: shortness of breath History of present illness: 57 year old morbidly obese woman with history of cor pumonale, severe pulmonary hypertension, chronic lung disease and continues to smoke cigarettes. She also has a history of coronary artery disease, ischemic cardiomyopathy, and has been non compliant with outpatient cardiac follow ups. In 2013, she underwent three- vessel coronary artery bypass at [facility]. Her latest echocardiogram, done about 3 months ago, documents a decrease left ventricular systolic function, ejection fraction 30-35%. Co-morbidities includes hypertension, prior CVA, diabetes, and peripheral vascular disease. Patient presents with shortness of breath, wheezing and complaints of abdominal distension. Patient inability to lay flat without being short of breath. She denies chest pain and palpitations. There is no lower extremity edema. Her BNP was noted to be elevated. ECG on presentation was consistent with atrial flutter with 2:1 conduction, ventricular rate in the 140s. Telemetry monitoring currently is consistent with atrial flutter with variable conduction. Past History Past Medical History: CAD, COPD, hypertension Past Surgical History: CABG Social history: smoking Medications and Allergies Allergies Allergy/AdvReac Type Severity Reaction Status Date / Time Penicillins Allergy Itching Verified 04/03/18 12:43 Home Medications Medication Instructions Recorded Confirmed Last Taken Type ALPRAZolam [Xanax TAB] 1 mg PO PRN PRN tablet 04/07/18 08/10/18 08/09/18 13:00 Rx Furosemide [Lasix TAB] 40 mg PO QDAY #60 tablet 05/09/18 08/10/18 08/09/18 09:00 Rx Gabapentin [Neurontin] 300 mg PO TID #30 capsule 05/09/18 08/10/18 08/09/18 13:00 Rx Insulin NPH/Regular [NovoLIN 70/30] 10 unit SUB-Q BID #1 vial 05/09/18 08/10/18 08/08/18 07:00 Rx Ipratropium/Albuterol Sulfate 1 ampul IH QIDRT #120 ampul.neb 05/09/18 08/10/18 08/09/18 09:00 Rx [DUONEB *Not for PRN Use*] Lisinopril [Zestril TAB] 20 mg PO DAILY #30 tablet 05/09/18 08/10/18 07/28/18 09:00 Rx Zolpidem [Ambien] 5 mg PO QHS #15 tablet 05/09/18 08/10/18 08/08/18 21:00 Rx oxyCODONE /ACETAMINOPHEN [Percocet 1 tab PO Q4H PRN #12 tablet 05/09/18 08/10/18 08/08/18 21:00 Rx 5/325 mg] Aspirin [Aspirin BABY CHEW TAB] 81 mg PO DAILY 08/10/18 08/10/18 08/09/18 09:00 History AtorvaSTATin [Lipitor] 40 mg PO QHS 08/10/18 08/10/18 08/08/18 21:00 History Active Meds: Active Medications Furosemide (Lasix) 40 mg IV Q8HR [facility] Last Admin: 08/10/18 09:37 Dose: 40 mg Documented by: Insulin Glargine (Lantus) 20 units SUB-Q QHS [facility] Methylprednisolone Sodium Succinate (Solu-Medrol) 40 mg IV Q8HR [facility] Stop: 08/13/18 08:59 Last Admin: 08/10/18 09:39 Dose: Not Given Documented by: Review of Systems All systems: negative (per hpi) Physical Examination Vital Signs Last Vital Signs Temp 97.6 F 08/10/18 08:14 Pulse 90 08/10/18 09:38 Resp 20 08/10/18 08:14 BP 99/74 08/10/18 09:38 Pulse Ox 91 08/10/18 08:14 General appearance: obese HEENT: Positive: PERRL Neck: Positive: trachea midline Cardiac: Positive: irregularly irregular, Audible Murmur Lungs: Positive: Decreased Breath Sounds Abdomen: Positive: Soft, Active Bowel Sounds Extremities: Present: +2 Edema Results 08/09/18 20:16 08/09/18 20:16 Cardiac Enzymes 08/09/18 Range/Units 20:16 AST 16 (5-40) units/L CBC 08/09/18 Range/Units 20:16 WBC 7.0 (4.5-11.0) K/mm3 RBC 5.22 H (3.65-5.03) M/mm3 Hgb 13.2 (10.1-14.3) gm/dl Hct 42.4 (30.3-42.9) % Plt Count 306 (140-440) K/mm3 Lymph # 1.6 (1.2-5.4) K/mm3 [place] # 0.4 (0.0-0.8) K/mm3 Eos # 0.2 (0.0-0.4) K/mm3 Baso # 0.1 (0.0-0.1) K/mm3 Comprehensive Metabolic Panel 08/09/18 Range/Units 20:16 Sodium 141 (137-145) mmol/L Potassium 4.3 (3.6-5.0) mmol/L Chloride 106.8 (98-107) mmol/L Carbon Dioxide 20 L (22-30) mmol/L BUN 17 (7-17) mg/dL Creatinine 0.7 (0.7-1.2) mg/dL Glucose 220 H (65-100) mg/dL Calcium 7.6 L (8.4-10.2) mg/dL AST 16 (5-40) units/L ALT 9 (7-56) units/L Alkaline Phosphatase 133 H (35-129) units/L Total Protein 5.9 L (6.3-8.2) g/dL Albumin 3.2 L (3.9-5) g/dL Assessment and Plan Acute on chronic respirator failure Multifactorial including right heart failure Newly diagnosed atrial flutter with RVR. Ischemic cardiomyopathy with EF 30-35% CAD s/p CABG Cor Pulmonale COPD Severe pulmonary hypertension Htn DM PAD Recommend: Continue diuresis and ongoing treatment for COPD. Add beta selective beta jesús for rate control Add eliquis for anticoagulation.
[2018-08-10] MEDS ORDERED: D50W (25GM) Syringe IV PRN (12:22)
[2018-08-10] MEDS ORDERED: PROVENTIL IH PRN ×2 (13:56→15:55)
[2018-08-10] MEDS: LOPRESSOR PO SCH ×2 (14:17→20:11)
[2018-08-10] MEDS ORDERED: NACL 0.9% 500 ML 500 ML IV SCH (16:00)
[2018-08-10] MEDS ORDERED: AMBIEN PO PRN (16:03)
[2018-08-10] MEDS ORDERED: IBUPROFEN PO PRN (16:04)
--- NOTE | 2018-08-10 16:15 | History and Physical Report ---
History of Present Illness Date of examination: 08/10/18 Date of admission: 08/10/18 00:41 Chief complaint: SOB/Generalized fatigue. History of present illness: Patient with multiple medical problems, and grossly non compliant with some of her medications and what she eats.She presented to the ER with SOB/diffuse wheezing, to the ER, CXK revealed HF, COPD exa, she is admitted , for sxs management. She was just here 2weeks ago ,for the sane reasons.She had also been to another hospital for the same reasons, before now.She will be treated accordingly, and encourage to be compliant with her meds, once d/c home.Cardiology, has been consulted. Past History Past Medical History: arrhythmia, CAD, COPD, diabetes, hypertension Past Surgical History: CABG Social history: single, lives with family, smoking Medications and Allergies Allergies Allergy/AdvReac Type Severity Reaction Status Date / Time Penicillins Allergy Itching Verified 04/03/18 12:43 Home Medications Medication Instructions Recorded Confirmed Last Taken Type ALPRAZolam [Xanax TAB] 1 mg PO PRN PRN tablet 04/07/18 08/10/18 08/09/18 13:00 Rx Furosemide [Lasix TAB] 40 mg PO QDAY #60 tablet 05/09/18 08/10/18 08/09/18 09:00 Rx Gabapentin [Neurontin] 300 mg PO TID #30 capsule 05/09/18 08/10/18 08/09/18 13:00 Rx Insulin NPH/Regular [NovoLIN 70/30] 10 unit SUB-Q BID #1 vial 05/09/18 08/10/18 08/08/18 07:00 Rx Ipratropium/Albuterol Sulfate 1 ampul QIDRT #120 ampul.neb 05/09/18 08/10/18 08/09/18 09:00 Rx [DUONEB *Not for PRN Use*] Lisinopril [Zestril TAB] 20 mg PO DAILY #30 tablet 05/09/18 08/10/18 07/28/18 09:00 Rx Zolpidem [Ambien] 5 mg PO QHS #15 tablet 05/09/18 08/10/18 08/08/18 21:00 Rx oxyCODONE /ACETAMINOPHEN [Percocet 1 tab PO Q4H PRN #12 tablet 05/09/18 08/10/18 08/08/18 21:00 Rx 5/325 mg] Aspirin [Aspirin BABY CHEW TAB] 81 mg PO DAILY 08/10/18 08/10/18 08/09/18 09:00 History AtorvaSTATin [Lipitor] 40 mg PO QHS 08/10/18 08/10/18 08/08/18 21:00 History Active Meds: Active Medications Albuterol (Proventil) 2.5 mg IH Q4HRT PRN PRN Reason: Shortness Of Breath Albuterol (Proventil) 2.5 mg IH Q4HRT PRN PRN Reason: Shortness Of Breath Albuterol/Ipratropium (Duoneb *Not For Prn Use*) 1 ampul IH QIDRT [facility] Dextrose (D50w (25gm) Syringe) 50 ml IV PRN PRN PRN Reason: Hypoglycemia Furosemide (Lasix) 40 mg IV Q8HR [facility] Last Admin: 08/10/18 09:37 Dose: 40 mg Documented by: Gabapentin (Neurontin) 300 mg PO Q8HR [facility] Sodium Chloride (Nacl 0.9% 500 Ml) 500 mls @ 50 mls/hr IV DIRECT LUZ Ibuprofen (Motrin) 600 mg PO Q8H PRN PRN Reason: Pain, Mild (1-3) Insulin Glargine (Lantus) 10 units SUB-Q QHS [facility] Insulin Human Regular (Humulin R) 0 units SUB-Q ACHS [facility]; Protocol Methylprednisolone Sodium Succinate (Solu-Medrol) 40 mg IV Q8HR [facility] Stop: 08/13/18 08:59 Last Admin: 08/10/18 09:39 Dose: Not Given Documented by: Methylprednisolone Sodium Succinate (Solu-Medrol) 40 mg IV Q8HR [facility] Metoprolol Tartrate (Lopressor) 25 mg PO TID [facility] Last Admin: 08/10/18 14:17 Dose: 25 mg Documented by: Zolpidem Tartrate (Ambien) 5 mg PO QHS PRN PRN Reason: Sleep Review of Systems Constitutional: weight gain Respiratory: cough, shortness of breath, dyspnea on exertion, wheezing, home oxygen Exam - Constitutional Vitals: Temp Pulse Resp BP Pulse Ox 97.6 F 142 H 20 105/68 97 08/10/18 08:14 08/10/18 14:19 08/10/18 08:14 08/10/18 14:19 08/10/18 13:51 General appearance: Present: mild distress, well-nourished - EENT Eyes: Present: PERRL ENT: hearing intact, clear oral mucosa - Neck Neck: Present: supple, normal ROM - Respiratory Respiratory: bilateral: wheezing - Cardiovascular Heart Sounds: Present: S1 & S2. Absent: rub, click - Extremities Extremities: pulses symmetrical, No edema Peripheral Pulses: within normal limits - Abdominal General gastrointestinal: Present: soft, non-tender, non-distended, normal bowel sounds Female genitourinary: Present: deferred - Rectal Rectal Exam: deferred - Integumentary Integumentary: Present: clear, warm, dry - Musculoskeletal Musculoskeletal: gait normal, strength equal bilaterally - Psychiatric Psychiatric: appropriate mood/affect, intact judgment & insight - Neurologic Neurologic: CNII-XII intact, moves all extremities Results - Labs CBC & Chem 7: 08/09/18 20:16 08/09/18 20:16 Labs: Abnormal lab results 08/09/18 08/09/18 08/10/18 Range/Units 20:16 20:16 09:24 RBC 5.22 H (3.65-5.03) M/mm3 MCH 25 L (28-32) pg RDW 21.1 H (13.2-15.2) % Carbon Dioxide 20 L (22-30) mmol/L Glucose 220 H (65-100) mg/dL POC Glucose 231 H (70-105) Calcium 7.6 L (8.4-10.2) mg/dL Alkaline Phosphatase 133 H (35-129) units/L NT-Pro-B Natriuret Pep 2566 H (0-900) pg/mL Total Protein 5.9 L (6.3-8.2) g/dL Albumin 3.2 L (3.9-5) g/dL 08/10/18 Range/Units 12:21 RBC (3.65-5.03) M/mm3 MCH (28-32) pg RDW (13.2-15.2) % Carbon Dioxide (22-30) mmol/L Glucose (65-100) mg/dL POC Glucose 239 H (70-105) Calcium (8.4-10.2) mg/dL Alkaline Phosphatase (35-129) units/L NT-Pro-B Natriuret Pep (0-900) pg/mL Total Protein (6.3-8.2) g/dL Albumin (3.9-5) g/dL Assessment and Plan - Patient Problems (1) Hypoxia Current Visit: Yes Status: Acute Plan to address problem: oxygen (2) SOB (shortness of breath) Current Visit: Yes Status: Acute Plan to address problem: oxygen (3) CHF (congestive heart failure) Current Visit: Yes Status: Chronic Qualifiers: Heart failure type: unspecified Heart failure chronicity: acute on chronic Qualified Code(s): I50.9 - Heart failure, unspecified Plan to address problem: See notes below. (4) CHF exacerbation Current Visit: Yes Status: Chronic Qualifiers: Heart failure type: unspecified Qualified Code(s): I50.9 - Heart failure, unspecified Plan to address problem: Diuretics, and follow cardiology. (5) COPD exacerbation Current Visit: Yes Status: Chronic Plan to address problem: Oxygen support./ Neb. INhalers. (6) Tachycardia Current Visit: Yes Status: Acute Plan to address problem: follow cardiology. (7) Diabetes Current Visit: Yes Status: Acute Plan to address problem: Tighter control of BG/A1c.
[2018-08-10] MEDS: DUONEB *Not for PRN Use IH SCH ×2 (16:43→21:17)
[2018-08-10] MEDS: HumuLIN R SUB-Q SCH ×2 (17:19→21:33)
[2018-08-10] MEDS ORDERED: CARDIZEM/D5W 100MG/100ML 100 MG/100 ML BAG IV SCH (18:00)
[2018-08-10] MEDS ORDERED: CARDIZEM 100 MG in D5W 80 ML IV SCH (21:00)
[2018-08-10] MEDS: ELIQUIS PO SCH (21:33)
[2018-08-10] MEDS: NEURONTIN PO SCH (21:33)
[2018-08-10] MEDS ORDERED: SOLU-Medrol IV SCH (22:00)
[2018-08-10] MEDS ORDERED: LANTUS SUB-Q SCH ×2 (22:00)
[2018-08-11] MEDS: NEURONTIN PO SCH ×2 (05:39→14:12)
[2018-08-11] MEDS: SOLU-Medrol IV SCH ×2 (05:39→14:11)
[2018-08-11] MEDS: LASIX IV SCH ×2 (05:39→14:12)
[2018-08-11 06:11] LABS: BUN/Creatinine Ratio 49; Blood Urea Nitrogen 34 mg/dL (7-17); Calcium 7.7 mg/dL (8.4-10.2); Hemolysis Index 26
[2018-08-11] MEDS: DUONEB *Not for PRN Use IH SCH ×4 (08:04→20:06)
[2018-08-11] MEDS: HumuLIN R SUB-Q SCH ×3 (08:44→17:30)
[2018-08-11] MEDS: LOPRESSOR PO SCH ×2 (08:44→14:12)
[2018-08-11] MEDS: ELIQUIS PO SCH (09:30)
[2018-08-11] MEDS ORDERED: HABITROL TD SCH (10:00)
--- NOTE | 2018-08-11 18:04 | Progress Note ---
Assessment and Plan - Patient Problems (1) CAD (coronary artery disease) of artery bypass graft Current Visit: Yes Status: Acute (2) Diabetes Current Visit: Yes Status: Acute (3) CHF (congestive heart failure) Current Visit: Yes Status: Chronic Qualifiers: Heart failure type: unspecified Heart failure chronicity: acute on chronic Qualified Code(s): I50.9 - Heart failure, unspecified (4) COPD exacerbation Current Visit: Yes Status: Chronic (5) Congestive cardiomyopathy Current Visit: No Status: Acute Subjective Date of service: 08/11/18 Interval history: FEELS BETTER,,,BREATHING OK Objective Vital Signs Temp Pulse Pulse Pulse Resp Resp Resp 08/11/18 12:40 122 H 20 08/11/18 12:30 116 H 22 08/11/18 11:35 104 H 08/11/18 08:44 132 H 08/11/18 08:15 140 H 22 08/11/18 08:04 113 H 20 08/11/18 07:43 98.6 F 132 H 18 08/11/18 04:16 98.0 F 102 H 17 08/10/18 23:37 98.3 F 76 17 08/10/18 22:05 120 H 24 08/10/18 22:00 18 08/10/18 21:35 134 H 08/10/18 21:18 08/10/18 20:11 131 H 08/10/18 20:05 98.7 F 139 H 17 08/10/18 19:31 119 H BP Pulse Ox 08/11/18 12:40 08/11/18 12:30 08/11/18 11:35 87/60 97 08/11/18 08:44 108/75 08/11/18 08:15 08/11/18 08:04 98 08/11/18 07:43 108/75 95 08/11/18 04:16 84/63 98 08/10/18 23:37 93/66 96 08/10/18 22:05 98 08/10/18 22:00 08/10/18 21:35 104/74 08/10/18 21:18 98 08/10/18 20:11 104/94 08/10/18 20:05 104/74 98 08/10/18 19:31 - Physical Examination General: No Apparent Distress HEENT: Positive: PERRL Neck: Positive: trachea midline Cardiac: Positive: Reg Rate and Rhythm Lungs: Positive: Decreased Breath Sounds Abdomen: Positive: Soft, Active Bowel Sounds Extremities: Present: +1 Edema - Labs and Meds Comprehensive Metabolic Panel 08/11/18 Range/Units 04:39 Sodium 136 L (137-145) mmol/L Potassium 5.6 H D (3.6-5.0) mmol/L Chloride 104.3 (98-107) mmol/L Carbon Dioxide 20 L (22-30) mmol/L BUN 34 H (7-17) mg/dL Creatinine 0.7 (0.7-1.2) mg/dL Glucose 169 H (65-100) mg/dL Calcium 7.7 L (8.4-10.2) mg/dL
--- NOTE | 2018-08-11 19:54 | Discharge Summary ---
Providers - Providers Date of Admission: 08/10/18 00:41 Date of discharge: 08/11/18 Attending physician: SANTY LYNCH 08/10/18 08:59 Consult to Physician [CONS] Routine Comment: Consulting Provider: DUTCH CHEEMA Physician Instructions: Reason For Exam: tachycardia Primary care physician: SANTY LYNCH Hospitalization Reason for admission: CHF exa/COPD exa. Condition: Fair Hospital course: Patient seen/examined, completely dressed to go home, and reffuses to stay. I have tried to persuade her, but no luck. She states that she is feeling fine ,and will take her meds at home. I have asked her to see me in the office this week, if she insists on going home this evening.She had presented to the ER with SOB, cough. she was in the hospital for the same reasons 2 weeks ago, and before this current admission, she was at [facility], for the same reasons. She is grossly non compliant in every ways.She also uses street drug , noticed in the office.Her EKG shows A fl;utter, and despite this, she insists on going home. I will put her on Eliquis as recommended by cardiology. EF is quite poor. Will a lso reduce her Diuretic to bid. Disposition: [place] TO HOME OR SELFCARE - Discharge Diagnoses (1) Hypoxia Status: Chronic (2) SOB (shortness of breath) Status: Chronic (3) CHF (congestive heart failure) Status: Chronic Qualifiers: Heart failure type: unspecified Heart failure chronicity: acute on chronic Qualified Code(s): I50.9 - Heart failure, unspecified (4) CHF exacerbation Status: Chronic Qualifiers: Heart failure type: unspecified Qualified Code(s): I50.9 - Heart failure, unspecified (5) COPD exacerbation Status: Chronic (6) Tachycardia Status: Chronic (7) Diabetes Status: Chronic (8) Atrial flutter Status: Acute Comment: will start patient on anti coagulation with eliquis. Core Measure Documentation - Palliative Care Palliative Care/ Comfort Measures: Not Applicable - Core Measures Any of the following diagnoses?: none - VTE Discharge Requirements Deep Vein Thrombosis/Pulmonary Embolism Present on Admission: No Has pt received <5 days of overlap therapy or INR<2.0: No Anticoagulant overlap therapy prescribed at discharge: No Contraindication No Overlap Therapy order at [place]: Not Indicated Exam - Constitutional Vitals: Temp Pulse Resp BP Pulse Ox 98.6 F 122 H 20 87/60 97 08/11/18 07:43 08/11/18 12:40 08/11/18 12:40 08/11/18 11:35 08/11/18 11:35 General appearance: Present: no acute distress, well-nourished - EENT Eyes: Present: PERRL ENT: hearing intact, clear oral mucosa - Neck Neck: Present: supple, normal ROM - Respiratory Respiratory: bilateral: wheezing - Cardiovascular Heart Sounds: Present: S1 & S2. Absent: rub, click - Extremities Extremities: pulses symmetrical, No edema Peripheral Pulses: within normal limits - Abdominal General gastrointestinal: Present: soft, non-tender, non-distended, normal bowel sounds Female genitourinary: Present: deferred - Rectal Rectal Exam: deferred - Integumentary Integumentary: Present: clear, warm, dry - Musculoskeletal Musculoskeletal: gait normal, strength equal bilaterally - Psychiatric Psychiatric: appropriate mood/affect, intact judgment & insight - Neurologic Neurologic: CNII-XII intact, moves all extremities Plan Activity: no restrictions Diet: diabetic Follow up with: SANTY LYNCH DO [Primary Care Provider] - 3-5 Days
[2018-08-11 20:14] VITALS: BP 129/73
[2018-08-12] MEDS ORDERED: LASIX IV SCH (10:00)
== END 2018-08-11 20:50 | disposition home or self-care (01) | DRG 291 ==
LOC: ED 19:36 → 4A 08-10 00:41
PROVIDERS: ADMIT Internal Medicine Hematology & Oncology; ATTEND Internal Medicine Hematology & Oncology
DX: I11.0 Hypertensive heart disease with heart failure (principal); J96.20 Acute and chronic respiratory failure, unspecified whether with hypoxia or hypercapnia; J44.1 Chronic obstructive pulmonary disease with (acute) exacerbation; I48.92 Unspecified atrial flutter; J44.9 Chronic obstructive pulmonary disease, unspecified; E11.40 Type 2 diabetes mellitus with diabetic neuropathy, unspecified; F17.210 Nicotine dependence, cigarettes, uncomplicated; E66.01 Morbid (severe) obesity due to excess calories; E11.51 Type 2 diabetes mellitus with diabetic peripheral angiopathy without gangrene; E87.6 Hypokalemia; E87.1 Hypo-osmolality and hyponatremia; I50.813 Acute on chronic right heart failure; I42.0 Dilated cardiomyopathy; I25.5 Ischemic cardiomyopathy; I27.20 Pulmonary hypertension, unspecified; Z79.82 Long term (current) use of aspirin; Z79.899 Other long term (current) drug therapy; Z79.01 Long term (current) use of anticoagulants; Z79.4 Long term (current) use of insulin; Z88.0 Allergy status to penicillin; Z86.73 Personal history of transient ischemic attack (TIA), and cerebral infarction without residual deficits; Z90.89 Acquired absence of other organs; Z89.411 Acquired absence of right great toe; Z89.422 Acquired absence of other left toe(s); Z89.412 Acquired absence of left great toe; Z68.37 Body mass index [BMI] 37.0-37.9, adult; Z71.6 Tobacco abuse counseling; Z95.1 Presence of aortocoronary bypass graft
CPT/HCPCS: 36415; 71045; 71275; 80048; 80053; 82962; 83880; 85025; 87116; 93005; 93010; 94640; 94760; 99406; G0378; J0692; J1170; J1815; J1940; J2060; J2920; J7050; Q9967

== ENCOUNTER 2018-08-30 19:13 | Inpatient (IN) | payer MEDICAID ==
--- NOTE | 2018-08-30 20:08 | Emergency Department Report ---
ED General Adult HPI - General Chief complaint: Dyspnea/Respdistress Stated complaint: FLUID RETENTION LEGS/ABD Time Seen by Provider: 08/30/18 20:07 Source: patient, EMS Mode of arrival: Stretcher Limitations: Physical Limitation - History of Present Illness Initial comments: Patient is a 58-year-old female past medical history of congestive heart failure who presents with Flexeril for 2 months and dizziness and shortness of breath. Patient states that her left leg has been hurting ever since she had her surgery on it to amputate her toes. She states that her right leg has been getting more red and more painful. She says the redness spread up to her body. It is severe and nothing makes it better and nothing makes it worse. - Related Data Home Medications Medication Instructions Recorded Confirmed Last Taken Aspirin [Aspirin BABY CHEW TAB] 81 mg PO DAILY 08/10/18 08/31/18 08/09/18 09:00 AtorvaSTATin [Lipitor] 40 mg PO QHS 08/10/18 08/31/18 08/08/18 21:00 Morphine [Morphine TAB] 30 mg PO DAILY PRN 08/31/18 08/31/18 Unknown Previous Rx's Medication Instructions Recorded Last Taken Type ALPRAZolam [Xanax TAB] 1 mg PO PRN PRN tablet 04/07/18 08/09/18 13:00 Rx Furosemide [Lasix TAB] 40 mg PO QDAY #60 tablet 05/09/18 08/09/18 09:00 Rx Gabapentin [Neurontin] 300 mg PO TID #30 capsule 05/09/18 08/09/18 13:00 Rx Insulin NPH/Regular [NovoLIN 70/30] 10 unit SUB-Q BID #1 vial 05/09/18 08/08/18 07:00 Rx Ipratropium/Albuterol Sulfate 1 ampul IH QIDRT #120 ampul.neb 05/09/18 08/09/18 09:00 Rx [DUONEB *Not for PRN Use*] Lisinopril [Zestril TAB] 20 mg PO DAILY #30 tablet 05/09/18 07/28/18 09:00 Rx Zolpidem [Ambien] 5 mg PO QHS #15 tablet 05/09/18 08/08/18 21:00 Rx oxyCODONE /ACETAMINOPHEN [Percocet 1 tab PO Q4H PRN #12 tablet 05/09/18 08/08/18 21:00 Rx 5/325 mg] Allergies Allergy/AdvReac Type Severity Reaction Status Date / Time Penicillins Allergy Itching Verified 04/03/18 12:43 ED Review of Systems ROS: Stated complaint: FLUID RETENTION LEGS/ABD Other details as noted in HPI Constitutional: denies: chills, fever Eyes: denies: eye pain, eye discharge, vision change ENT: denies: ear pain, throat pain Respiratory: shortness of breath. denies: cough, wheezing Cardiovascular: denies: chest pain, palpitations Endocrine: no symptoms reported Gastrointestinal: denies: abdominal pain, nausea, diarrhea Genitourinary: denies: urgency, dysuria, discharge Musculoskeletal: as per HPI. denies: back pain, joint swelling, arthralgia Skin: denies: rash, lesions Neurological: denies: headache, weakness, paresthesias Psychiatric: denies: anxiety, depression Hematological/Lymphatic: denies: easy bleeding, easy bruising ED Past Medical Hx - Past Medical History Previous Medical History?: Yes Hx Hypertension: Yes Hx CVA: Yes (TIA) Hx Heart Attack/AMI: No Hx Congestive Heart Failure: No Hx Diabetes: Yes Hx Deep Vein Thrombosis: No Hx Pulmonary Embolism: No Hx Liver Disease: No Hx Sickle Cell Disease: No Hx Arthritis: No Hx Seizures: No Hx Kidney Stones: No Hx Asthma: Yes Hx COPD: Yes Hx Tuberculosis: No Hx Dementia: No Hx HIV: No Additional medical history: Diabetic neuropathy, previous CVA per medical record - Surgical History Past Surgical History?: Yes Hx Coronary Stent: No Hx Open Heart Surgery: Yes (CABG x3) Hx Internal Defibrillator: No Hx Cholecystectomy: No Additional Surgical History: tonsillectomy. all toes on left foot amputated. right great toe amputated - Social History Smoking Status: Never Smoker Substance Use Type: None - Medications Home Medications: Home Medications Medication Instructions Recorded Confirmed Last Taken Type ALPRAZolam [Xanax TAB] 1 mg PO PRN PRN tablet 04/07/18 08/31/18 08/09/18 13:00 Rx Furosemide [Lasix TAB] 40 mg PO QDAY #60 tablet 05/09/18 08/31/18 08/09/18 09:00 Rx Gabapentin [Neurontin] 300 mg PO TID #30 capsule 05/09/18 08/31/18 08/09/18 13:00 Rx Insulin NPH/Regular [NovoLIN 70/30] 10 unit SUB-Q BID #1 vial 05/09/18 08/31/18 08/08/18 07:00 Rx Ipratropium/Albuterol Sulfate 1 ampul IH QIDRT #120 ampul.neb 05/09/18 08/31/18 08/09/18 09:00 Rx [DUONEB *Not for PRN Use*] Lisinopril [Zestril TAB] 20 mg PO DAILY #30 tablet 05/09/18 08/31/18 07/28/18 09:00 Rx Zolpidem [Ambien] 5 mg PO QHS #15 tablet 05/09/18 08/31/18 08/08/18 21:00 Rx oxyCODONE /ACETAMINOPHEN [Percocet 1 tab PO Q4H PRN #12 tablet 05/09/18 08/31/18 08/08/18 21:00 Rx 5/325 mg] Aspirin [Aspirin BABY CHEW TAB] 81 mg PO DAILY 08/10/18 08/31/18 08/09/18 09:00 History AtorvaSTATin [Lipitor] 40 mg PO QHS 08/10/18 08/31/18 08/08/18 21:00 History Morphine [Morphine TAB] 30 mg PO DAILY PRN 08/31/18 08/31/18 Unknown History ED Physical Exam - General Limitations: Physical Limitation General appearance: alert, in no apparent distress - Head Head exam: Present: atraumatic, normocephalic - Eye Eye exam: Present: normal appearance - ENT ENT exam: Present: mucous membranes moist - Neck Neck exam: Present: normal inspection - Respiratory Respiratory exam: Present: wheezes, rhonchi. Absent: respiratory distress - Cardiovascular Cardiovascular Exam: Present: regular rate, normal rhythm. Absent: systolic murmur, diastolic murmur, rubs, gallop - GI/Abdominal GI/Abdominal exam: Present: soft, normal bowel sounds - Extremities Exam Extremities exam: Present: other (erythema and blanching rash of left leg left toe amputation ) - Back Exam Back exam: Present: normal inspection - Neurological Exam Neurological exam: Present: alert, oriented X3 - Psychiatric Psychiatric exam: Present: normal affect, normal mood - Skin Skin exam: Present: warm, dry, intact, normal color. Absent: rash ED Course Vital Signs 08/30/18 08/30/18 08/30/18 20:01 20:15 21:00 Temperature 97.7 F Pulse Rate 130 H 139 H 136 H Respiratory 15 26 H 17 Rate Blood Pressure 120/77 120/77 134/88 Blood Pressure 120/77 [Left] O2 Sat by Pulse 100 100 99 Oximetry 08/30/18 08/30/18 08/31/18 23:00 23:03 00:00 Temperature Pulse Rate 138 H 138 H 138 H Respiratory 17 22 15 Rate Blood Pressure 107/75 107/75 102/77 Blood Pressure [Left] O2 Sat by Pulse Oximetry 08/31/18 08/31/18 01:00 02:01 Temperature Pulse Rate 137 H 141 H Respiratory 14 28 H Rate Blood Pressure 115/75 115/75 Blood Pressure [Left] O2 Sat by Pulse 100 Oximetry ED Medical Decision Making - Lab Data Result diagrams: 08/30/18 20:45 08/30/18 20:45 Lab Results 08/30/18 08/30/18 08/30/18 Range/Units 20:45 20:45 20:45 WBC 12.1 H (4.5-11.0) K/mm3 RBC 5.55 H (3.65-5.03) M/mm3 Hgb 14.2 (10.1-14.3) gm/dl Hct 45.1 H (30.3-42.9) % MCV 81 (79-97) fl MCH 26 L (28-32) pg MCHC 31 (30-34) % RDW 21.5 H (13.2-15.2) % Plt Count 202 (140-440) K/mm3 Lymph % (Auto) 15.3 (13.4-35.0) % Kimball % (Auto) 3.8 (0.0-7.3) % Eos % (Auto) 1.0 (0.0-4.3) % Baso % (Auto) 1.1 (0.0-1.8) % Lymph # 1.9 (1.2-5.4) K/mm3 Kimball # 0.5 (0.0-0.8) K/mm3 Eos # 0.1 (0.0-0.4) K/mm3 Baso # 0.1 (0.0-0.1) K/mm3 Seg Neutrophils % 78.8 H (40.0-70.0) % Seg Neutrophils # 9.6 H (1.8-7.7) K/mm3 Sodium (137-145) mmol/L Potassium (3.6-5.0) mmol/L Chloride (98-107) mmol/L Carbon Dioxide (22-30) mmol/L Anion Gap mmol/L BUN (7-17) mg/dL Creatinine (0.7-1.2) mg/dL Estimated GFR ml/min BUN/Creatinine Ratio % Glucose (65-100) mg/dL Lactic Acid 1.50 (0.7-2.0) mmol/L Calcium (8.4-10.2) mg/dL Total Bilirubin (0.1-1.2) mg/dL AST (5-40) units/L ALT (7-56) units/L Alkaline Phosphatase (35-129) units/L Total Creatine Kinase (30-135) units/L Troponin T (0.00-0.029) ng/mL Total Protein (6.3-8.2) g/dL Albumin (3.9-5) g/dL Albumin/Globulin Ratio % Urine Color (Yellow) Urine Turbidity (Clear) Urine pH (5.0-7.0) Ur Specific Maple (1.003-1.030) Urine Protein (Negative) mg/dL Urine Glucose (UA) (Negative) mg/dL Urine Ketones (Negative) mg/dL Urine Blood (Negative) Urine Nitrite (Negative) Urine Bilirubin (Negative) Urine Urobilinogen (<2.0) mg/dL Ur Leukocyte Esterase (Negative) Urine WBC (Auto) (0.0-6.0) /HPF Urine RBC (Auto) (0.0-6.0) /HPF U Epithel Cells (Auto) (0-13.0) /HPF Urine Bacteria (Auto) (Negative) /HPF Urine Mucus /HPF Blood Type A POSITIVE Antibody Screen Negative 08/30/18 08/30/18 Range/Units 20:45 23:36 WBC (4.5-11.0) K/mm3 RBC (3.65-5.03) M/mm3 Hgb (10.1-14.3) gm/dl Hct (30.3-42.9) % MCV (79-97) fl MCH (28-32) pg MCHC (30-34) % RDW (13.2-15.2) % Plt Count (140-440) K/mm3 Lymph % (Auto) (13.4-35.0) % Kimball % (Auto) (0.0-7.3) % Eos % (Auto) (0.0-4.3) % Baso % (Auto) (0.0-1.8) % Lymph # (1.2-5.4) K/mm3 Kimball # (0.0-0.8) K/mm3 Eos # (0.0-0.4) K/mm3 Baso # (0.0-0.1) K/mm3 Seg Neutrophils % (40.0-70.0) % Seg Neutrophils # (1.8-7.7) K/mm3 Sodium 135 L (137-145) mmol/L Potassium 4.8 (3.6-5.0) mmol/L Chloride 98.6 (98-107) mmol/L Carbon Dioxide 22 (22-30) mmol/L Anion Gap 19 mmol/L BUN 22 H (7-17) mg/dL Creatinine 0.7 (0.7-1.2) mg/dL Estimated GFR > 60 ml/min BUN/Creatinine Ratio 31 % Glucose 144 H (65-100) mg/dL Lactic Acid (0.7-2.0) mmol/L Calcium 8.4 (8.4-10.2) mg/dL Total Bilirubin 0.70 (0.1-1.2) mg/dL AST 14 (5-40) units/L ALT 10 (7-56) units/L Alkaline Phosphatase 138 H (35-129) units/L Total Creatine Kinase 36 (30-135) units/L Troponin T < 0.010 (0.00-0.029) ng/mL Total Protein 6.3 (6.3-8.2) g/dL Albumin 3.4 L (3.9-5) g/dL Albumin/Globulin Ratio 1.2 % Urine Color Yellow (Yellow) Urine Turbidity Clear (Clear) Urine pH 5.0 (5.0-7.0) Ur Specific Maple 1.027 (1.003-1.030) Urine Protein <15 mg/dl (Negative) mg/dL Urine Glucose (UA) Neg (Negative) mg/dL Urine Ketones Neg (Negative) mg/dL Urine Blood Neg (Negative) Urine Nitrite Neg (Negative) Urine Bilirubin Neg (Negative) Urine Urobilinogen 4.0 (<2.0) mg/dL Ur Leukocyte Esterase Neg (Negative) Urine WBC (Auto) < 1.0 (0.0-6.0) /HPF Urine RBC (Auto) 1.0 (0.0-6.0) /HPF U Epithel Cells (Auto) 12.0 (0-13.0) /HPF Urine Bacteria (Auto) 1+ (Negative) /HPF Urine Mucus Few /HPF Blood Type Antibody Screen - EKG Data -: EKG Interpreted by Wi - EKG Data 08/31/18 02:51 EKG shows sinus tachycardia rate 140 ST segment elevation or T-wave inversion normal axis - Radiology Data Radiology results: report reviewed, image reviewed CT angios chest: Shows no pulmonary embolism moderate COPD and large amount of ascites. There is no acute infiltrates - Medical Decision Making Cdx: CHF exacerbation ddx: Pulmonary embolism, electrolyte abnormality I will get ct scan of chest, blood work IV antibiotics Critical care attestation.: If time is entered above; I have spent that time in minutes in the direct care of this critically ill patient, excluding procedure time. ED Disposition Clinical Impression: Tachycardia CHF exacerbation Qualifiers: Heart failure type: unspecified Qualified Code(s): I50.9 - Heart failure, u nspecified Cellulitis Qualifiers: Site of cellulitis: extremity Site of cellulitis of extremity: lower extremity Laterality: left Qualified Code(s): L03.116 - Cellulitis of left lower limb Disposition: OP ADMIT IP TO THIS HOSP Is pt being admited?: Yes Does the pt Need Aspirin: No Condition: Stable Referrals: PRIMARY CARE, [Primary Care Provider] - 3-5 Days
[2018-08-30] MEDS ORDERED: NACL 0.9% 1000 ML IV ONE (20:18)
[2018-08-30] MEDS ORDERED: PROVENTIL IH ONE (20:21)
[2018-08-30] MEDS ORDERED: NACL 0.9% 500 ML 500 ML IV ONE (20:58)
[2018-08-30] MEDS ORDERED: VANCOMYCIN 1,750 MG in NACL 0.9% 500 ML 500 ML IV ONE (21:00)
[2018-08-30] MEDS ORDERED: VANCOMYCIN/NS 1 GM/250 ML 1 GM/250 ML BAG IV NR (21:00)
[2018-08-30 21:10] LABS: Basophils # (Auto) 0.1 K/mm3 (0.0-0.1); Basophils % (Auto) 1.1 % (0.0-1.8); Eosinophils # (Auto) 0.1 K/mm3 (0.0-0.4); Hematocrit 45.1 % (30.3-42.9); Hemoglobin 14.2 gm/dl (10.1-14.3); Lymphocytes # (Auto) 1.9 K/mm3 (1.2-5.4); Lymphocytes % (Auto) 15.3 % (13.4-35.0); Mean Corpuscular HGB Conc 31 % (30-34); Mean Corpuscular Volume 81 fl (79-97); Monocytes # (Auto) 0.5 K/mm3 (0.0-0.8); Monocytes % (Auto) 3.8 % (0.0-7.3); Platelet Count 202 K/mm3 (140-440); Red Blood Count 5.55 M/mm3 (3.65-5.03)
[2018-08-30 21:23] LABS: Alanine Aminotransferase 10 units/L (7-56); Albumin 3.4 g/dL (3.9-5); BUN/Creatinine Ratio 31; Blood Urea Nitrogen 22 mg/dL (7-17); Calcium 8.4 mg/dL (8.4-10.2); Hemolysis Index 13
[2018-08-30] MEDS ORDERED: MORPHINE IV ONE (21:26)
[2018-08-30] MEDS: LEVAQUIN 750MG/150ML 750 MG/150 ML BAG IV SCH (21:36)
[2018-08-30 21:44] LABS: Red Cell Distribution Width 21.5 % (13.2-15.2)
[2018-08-30] MEDS ORDERED: SUBLIMAZE IV ONE (23:06)
--- NOTE | 2018-08-30 23:21 | XRay Report ---
PROCEDURE: XR CHEST 1V AP TECHNIQUE: Chest radiograph single view. HISTORY: sob COMPARISONS: None . FINDINGS: Heart: Moderate degree cardiomegaly is noted. Mediastinum/Vessels: Normal. Lungs/Pleural space: There is diffuse prominence of interstitial markings as seen on the prior study . Bilateral pleural spaces are clear.. Bony thorax: No acute osseous abnormality. Life support devices: None. IMPRESSION: Diffuse prominence of interstitial markings most likely represent interstitial fibrosis versus interstitial edema stable since the prior study. Cardiomegaly. This document is electronically signed by Jovan Page MD., August 30 2018 08:52:23 PM ET
[2018-08-30 23:57] LABS: Bacteria,Urine 1+ /HPF (Negative); Bilirubin,Urine NEG (Negative); Blood,Urine NEG (Negative); Color,Urine Yellow (Yellow); Mucus,Urine FEW /HPF; Protein,Urine <15 mg/dL mg/dL (Negative); WBC,Urine < 1.0 /HPF (0.0-6.0)
[2018-08-31] MEDS ORDERED: LASIX IV ONE (01:21)
--- NOTE | 2018-08-31 01:30 | Cat Scan Report ---
PROCEDURE: CT ANGIOGRAM OF THE CHEST FOR PULMONARY EMBOLISM TECHNIQUE: Computerized axial tomographic angiography of the chest and pulmonary arteries was perfor med after the IV injection of iodinated nonionic contrast. The image data was postprocessed using max imum intensity projection (MIP) and 2-dimensional multiplanar reformatted (MPR) techniques. The exami nation is specifically tailored to the evaluation of the pulmonary arteries per clinical request. Au tomated exposure control, adjustment of mA and/or kV according to patient size, or iterative reconstr uction dose optimization techniques were utilized. CPT G9637, 02800 HISTORY: Shortness of breath R06.02, chest pain unspecified R07.9 , COMPARISONS: August 09, 2018 . FINDINGS: Heart and pericardium: The heart is enlarged. There is no pericardial effusion.. Thoracic aorta: There is calcified plaque in the thoracic aorta. There is no aneurysm or dissection. . Pulmonary vasculature: Normal. No pulmonary emboli. Lymph nodes: There is right hilar adenopathy.. This is unchanged from the prior study. Lungs: There is moderate COPD.. Bilateral pulmonary nodules are unchanged from prior examination. Th ere is fluid in the right major fissure. There are bilateral pleural effusions slightly smaller than prior study. There are no acute infiltrates. Pleural space: There is no pneumothorax.. Musculoskeletal structures: No significant abnormality. Upper abdominal structures: There is a large amount of ascites. This is similar to prior study.. IMPRESSION: There is no pulmonary embolism. There is calcified plaque in the thoracic aorta. There is no aneurysm or dissection.. There is right hilar adenopathy.. This is unchanged from the prior study. There is moderate COPD.. Bilateral pulmonary nodules are unchanged from prior examination. There is f luid in the right major fissure. There are bilateral pleural effusions slightly smaller than prior st udy. There are no acute infiltrates. There is no pneumothorax.. There is a large amount of ascites. This is similar to prior study.. This document is electronically signed by Roderick Reinoso MD., August 31 2018 01:28:37 AM ET
[2018-08-31] MEDS ORDERED: D50W (25GM) Syringe IV PRN (03:55)
[2018-08-31] MEDS ORDERED: SODIUM CHLORIDE FLUSH SYRINGE 10 ML IV PRN (03:55)
[2018-08-31] MEDS ORDERED: TYLENOL PO PRN (03:55)
[2018-08-31] MEDS ORDERED: ZOFRAN IV PRN (03:55)
--- NOTE | 2018-08-31 04:00 | History and Physical Report ---
History of Present Illness Date of examination: 08/31/18 History of present illness: 58-year-old woman with a history of hypertension, diabetes, COPD, coronary artery disease, CHF comes emergency room with complaints of swelling of lower extremities for 1 months. Also complaining of PND, orthopnea, cough productive of green phlegm. Stated that her abdomen has been red over the last 1 month, she was given Gold bonds powder for treatment Review of systems Constitutional: no weight loss, chills, fever Ears, eyes, nose, mouth and throat: no nasal congestion, no nasal discharge, no sinus pressure, no vision change, no red eye. Neck: No neck pain or rigidity. Cardiovascular: no palpitations, chest pain Respiratory: +cough, shortness of breath Gastrointestinal: no hematochezia, abdominal pain Genitourinary : no frequency , no hematuria Musculoskeletal: no joint swelling or muscle ache Integumentary: no rash, no pruritis Neurological: no parathesias, no focal weakness Endocrine: no cold or heat intolerance, no polyuria or polydipsia Hematologic/Lymphatic: no easy bruising, no easy bleeding, no gland swelling Allergic/Immunologic: no urticaria, no angioedema. PAST MEDICAL HISTORY:hypertension, diabetes, COPD, coronary artery disease, CHF PAST SURGICAL HISTORY: CABG, amputation of toes SOCIAL HISTORY:Smokes half pack a day, no alcohol or drugs FAMILY HISTORY: Hypertension Medications and Allergies Allergies Allergy/AdvReac Type Severity Reaction Status Date / Time Penicillins Allergy Itching Verified 04/03/18 12:43 Home Medications Medication Instructions Recorded Confirmed Last Taken Type ALPRAZolam [Xanax TAB] 1 mg PO PRN PRN tablet 04/07/18 08/31/18 08/09/18 13:00 Rx Furosemide [Lasix TAB] 40 mg PO QDAY #60 tablet 05/09/18 08/31/18 08/09/18 09:00 Rx Gabapentin [Neurontin] 300 mg PO TID #30 capsule 05/09/18 08/31/18 08/09/18 13:00 Rx Insulin NPH/Regular [NovoLIN 70/30] 10 unit SUB-Q BID #1 vial 05/09/18 08/31/18 08/08/18 07:00 Rx Ipratropium/Albuterol Sulfate 1 ampul IH QIDRT #120 ampul.neb 05/09/18 08/31/1808/09/19 09:00 Rx [DUONEB *Not for PRN Use*] Lisinopril [Zestril TAB] 20 mg PO DAILY #30 tablet 05/09/18 08/31/18 07/28/18 09:00 Rx Zolpidem [Ambien] 5 mg PO QHS #15 tablet 05/09/18 08/31/18 08/08/18 21:00 Rx oxyCODONE /ACETAMINOPHEN [Percocet 1 tab PO Q4H PRN #12 tablet 05/09/18 08/31/18 08/08/18 21:00 Rx 5/325 mg] Aspirin [Aspirin BABY CHEW TAB] 81 mg PO DAILY 08/10/18 08/31/18 08/09/18 09:00 History AtorvaSTATin [Lipitor] 40 mg PO QHS 08/10/18 08/31/18 08/08/18 21:00 History Morphine [Morphine TAB] 30 mg PO DAILY PRN 08/31/18 08/31/18 Unknown History Active Meds: Active Medications Levofloxacin/Dextrose (Levaquin 750mg/150ml) 750 mg in 150 mls @ 100 mls/hr IV Q24HR [facility]; Protocol Last Admin: 08/30/18 21:36 Dose: 100 mls/hr Documented by: Ipratropium Water[place] (Atrovent) 1 mg IH TIDRT [facility] Methylprednisolone Sodium Succinate (Solu-Medrol) 125 mg IV Q6HR [facility] Exam - Physical Exam Narrative exam: General Apperance: The patient lying in bed, breathing comfortable HEENT: Normocephalic, atraumatic. Pupils equally round and reactive to light, EOMI, no sclericterus or JVD or thyromegaly or nodule. , no carotid bruit, mucous membranes moist, no exudate or erythema Heart: S1-S2, regular is rhythm Lungs: Crackles, wheezing bilaterally, breathing comfortable Abdomen: Positive erythema, Positive bowel sounds, soft, nontender, nondistended, no organomegaly Extremities: + edema up to knees, cyanosis clubbing Skin: no rash, nodule, warm and dry Neuro: cranial nerves 2-12 intact, speech is fluent, motor/sensory intact - Constitutional Vitals: Temp Pulse Resp BP Pulse Ox 97.7 F 140 H 24 105/74 99 08/31/18 03:36 08/31/18 03:36 08/31/18 03:36 08/31/18 03:36 08/31/18 03:36 Results - Labs CBC & Chem 7: 09/04/18 08:59 09/04/18 08:59 Labs: Abnormal lab results 08/30/18 08/30/18 Range/Units 20:45 20:45 WBC 12.1 H (4.5-11.0) K/mm3 RBC 5.55 H (3.65-5.03) M/mm3 Hct 45.1 H (30.3-42.9) % MCH 26 L (28-32) pg RDW 21.5 H (13.2-15.2) % Seg Neutrophils % 78.8 H (40.0-70.0) % Seg Neutrophils # 9.6 H (1.8-7.7) K/mm3 Sodium 135 L (137-145) mmol/L BUN 22 H (7-17) mg/dL Glucose 144 H (65-100) mg/dL Alkaline Phosphatase 138 H (35-129) units/L Albumin 3.4 L (3.9-5) g/dL - Imaging and Cardiology Chest x-ray: report reviewed CT scan - chest: report reviewed Assessment and Plan Assessment CHF exacerbation, acute on chronic systolic COPD exacerbation Abdominal cellulitis Coronary artery disease Tachycardia Hypertension Diabetes2 Plan Start IV steroids now, nebulizer treatment, give a dose of IV Lopressor Start IV Lasix, will further beta jesús for now given her COPD exacerbation Continue lisinopril, aspirin, start levaquin, s/p vanco Check cardiac enzymes, echo, consult cardiology Check fingersticks, initiate insulin sliding scale Continue appropriate outpatient medications DVT prophylaxis
[2018-08-31] MEDS ORDERED: LOPRESSOR IV ONE (04:01)
[2018-08-31] MEDS ORDERED: SOLU-Medrol ONE (04:08)
[2018-08-31] MEDS ORDERED: PERCOCET 5/325 ONE (04:09)
[2018-08-31] MEDS: PERCOCET 5/325 PO PRN ×3 (04:14→18:18)
[2018-08-31] MEDS: SOLU-Medrol IV SCH ×4 (04:14→18:18)
[2018-08-31 04:26] LABS: Basophils # (Auto) 0.1 K/mm3 (0.0-0.1); Basophils % (Auto) 0.9 % (0.0-1.8); Eosinophils # (Auto) 0.1 K/mm3 (0.0-0.4); Eosinophils % (Auto) 1.5 % (0.0-4.3); Hematocrit 43.7 % (30.3-42.9); Hemoglobin 13.8 gm/dl (10.1-14.3); Lymphocytes # (Auto) 1.8 K/mm3 (1.2-5.4); Lymphocytes % (Auto) 17.2 % (13.4-35.0); Mean Corpuscular HGB Conc 32 % (30-34); Mean Corpuscular Volume 82 fl (79-97); Monocytes # (Auto) 0.7 K/mm3 (0.0-0.8); Monocytes % (Auto) 6.5 % (0.0-7.3); Platelet Count 181 K/mm3 (140-440); Red Blood Count 5.36 M/mm3 (3.65-5.03)
[2018-08-31 04:29] LABS: Red Cell Distribution Width 21.2 % (13.2-15.2)
[2018-08-31] MEDS: ATROVENT IH PRN (04:34)
[2018-08-31 04:41] LABS: BUN/Creatinine Ratio 32; Blood Urea Nitrogen 19 mg/dL (7-17); Calcium 8.3 mg/dL (8.4-10.2); Hemolysis Index 2
[2018-08-31 04:42] LABS: Creatine Kinase MB 2.4 ng/mL (0.0-4.0)
[2018-08-31] MEDS: XANAX PO PRN (06:24)
[2018-08-31] MEDS: LASIX IV SCH ×2 (06:25→18:18)
[2018-08-31] MEDS: HumaLOG SUB-Q SCH ×4 (08:03→21:07)
[2018-08-31] MEDS: ATROVENT IH SCH ×4 (09:40→20:26)
[2018-08-31] MEDS: NEURONTIN PO SCH ×3 (09:57→20:57)
[2018-08-31] MEDS ORDERED: LOVENOX SUB-Q SCH ×2 (10:00)
--- NOTE | 2018-08-31 10:13 | Consultation ---
History of Present Illness Consult date: 08/31/18 Consult reason: congestive heart failure History of present illness: 57 year old morbidly obese woman with history of cor pumonale, severe pulmonary hypertension, chronic lung disease and continues to smoke cigarettes. She also has a history of coronary artery disease, ischemic cardiomyopathy, and has been non compliant with outpatient cardiac follow ups. In 2013, she underwent three- vessel coronary artery bypass at [facility]. Her latest echocardiogram, done about months ago, documents a decrease left ventricular systolic function, ejection fraction 30-35%. Co-morbidities includes hypertension, prior CVA, diabetes, and peripheral vascular disease. Patient presents with LE edema and erhythema, shortness of breath, wheezing and complaints of abdominal distension. Patient inability to lay flat without being short of breath. She denies chest pain and palpitations. Her BNP was noted to be elevated. She was recently hospitalized with similar presentation and noted to be in atrial flutter. She was started on eliquis and metoprolol but she unfortunately did not continue these medications at home. She has been chronically non- compliant with medical therapy and follow-up. She continues to smoke. ECG during current presentation reveals atrial flutter with 2:1 conduction and ventricular rate of 140 bpm. Past History Past Medical History: CAD, COPD, hypertension Past Surgical History: CABG Social history: smoking (2/3 ppd) Family history: CAD, hypertension Medications and Allergies Allergies Allergy/AdvReac Type Severity Reaction Status Date / Time Penicillins Allergy Itching Verified 04/03/18 12:43 Home Medications Medication Instructions Recorded Confirmed Last Taken Type ALPRAZolam [Xanax TAB] 1 mg PO PRN PRN tablet 04/07/18 08/31/18 08/09/18 13:00 Rx Furosemide [Lasix TAB] 40 mg PO QDAY #60 tablet 05/09/18 08/31/18 08/09/18 09:00 Rx Gabapentin [Neurontin] 300 mg PO TID #30 capsule 05/09/18 08/31/18 08/09/18 13:00 Rx Insulin NPH/Regular [NovoLIN 70/30] 10 unit SUB-Q BID #1 vial 05/09/18 08/31/18 08/08/18 07:00 Rx Ipratropium/Albuterol Sulfate 1 ampul IH QIDRT #120 ampul.neb 11/03/1808/31/18 08/09/18 09:00 Rx [DUONEB *Not for PRN Use*] Lisinopril [Zestril TAB] 20 mg PO DAILY #30 tablet 05/09/18 08/31/18 07/28/18 09:00 Rx Zolpidem [Ambien] 5 mg PO QHS #15 tablet 05/09/18 08/31/18 08/08/18 21:00 Rx oxyCODONE /ACETAMINOPHEN [Percocet 1 tab PO Q4H PRN #12 tablet 05/09/18 08/31/18 08/08/18 21:00 Rx 5/325 mg] Aspirin [Aspirin BABY CHEW TAB] 81 mg PO DAILY 08/10/18 08/31/18 08/09/18 09:00 History AtorvaSTATin [Lipitor] 40 mg PO QHS 08/10/18 08/31/18 08/08/18 21:00 History Morphine [Morphine TAB] 30 mg PO DAILY PRN 08/31/18 08/31/18 Unknown History Active Meds: Active Medications Acetaminophen (Tylenol) 650 mg PO Q4H PRN PRN Reason: Pain MILD(1-3)/Fever >100.5/MCLAUGHLIN Alprazolam (Xanax) 1 mg PO QHS PRN PRN Reason: Anxiety Last Admin: 08/31/18 06:24 Dose: 1 mg Documented by: Aspirin (Baby Aspirin) 81 mg PO DAILY [facility] Atorvastatin Calcium (Lipitor) 40 mg PO QHS [facility] Dextrose (D50w (25gm) Syringe) 50 ml IV PRN PRN PRN Reason: Hypoglycemia Enoxaparin Sodium (Lovenox) 40 mg SUB-Q QDAY@1000 [facility] Furosemide (Lasix) 40 mg IV 0600,1800 [facility] Last Admin: 08/31/18 06:25 Dose: 40 mg Documented by: Gabapentin (Neurontin) 300 mg PO TID [facility] Last Admin: 08/31/18 09:57 Dose: 300 mg Documented by: Levofloxacin/Dextrose (Levaquin 750mg/150ml) 750 mg in 150 mls @ 100 mls/hr IV Q24HR [facility]; Protocol Last Admin: 08/30/18 21:36 Dose: 100 mls/hr Documented by: Insulin Human Isoph/Insulin Regular (Humulin 70/30) 10 unit SUB-Q BIDDIAB [facility] Last Admin: 08/31/18 09:57 Dose: 10 unit Documented by: Insulin Human Lispro (Humalog) 0 unit SUB-Q ACHS [facility]; Protocol Last Admin: 08/31/18 08:03 Dose: Not Given Documented by: Ipratropium [place] (Atrovent) 1 mg IH TIDRT [facility] Last Admin: 08/31/18 09:40 Dose: 1 mg Documented by: Ipratropium [place] (Atrovent) 0.5 mg IH Q4HRT PRN PRN Reason: Shortness Of Breath Last Admin: 08/31/18 04:34 Dose: 0.5 mg Documented by: Lisinopril (Zestril) 2.5 mg PO QDAY [facility] Methylprednisolone Sodium Succinate (Solu-Medrol) 125 mg IV Q6HR [facility] Last Admin: 08/31/18 04:14 Dose: 125 mg Documented by: Ondansetron HCl (Zofran) 4 mg IV Q4H PRN PRN Reason: Nausea And Vomiting Oxycodone/Acetaminophen (Percocet 5/325) 1 tab PO Q6H PRN PRN Reason: Pain, Moderate (4-6) Last Admin: 08/31/18 04:14 Dose: 1 tab Documented by: Sodium Chloride (Sodium Chloride Flush Syringe 10 Ml) 10 ml IV BID [facility] Sodium Chloride (Sodium Chloride Flush Syringe 10 Ml) 10 ml IV PRN PRN PRN Reason: LINE FLUSH Review of Systems All systems: negative (per hpi) Physical Examination Vital Signs Pulse Resp BP Pulse Ox 130 H 15 120/77 100 08/30/18 20:01 08/30/18 20:01 08/30/18 20:01 08/30/18 20:01 HEENT: Positive: PERRL Neck: Positive: JVD/HJR Cardiac: Positive: irregularly irregular, Systolic Murmur Lungs: Positive: Wheezes Abdomen: Positive: Soft, Distended Extremities: Present: +1 Edema Results 08/31/18 04:07 08/31/18 04:07 Cardiac Enzymes 08/30/18 08/31/18 Range/Units 20:45 04:07 AST 14 (5-40) units/L CK-MB (CK-2) 2.4 (0.0-4.0) ng/mL CBC 08/30/18 08/31/18 Range/Units 20:45 04:07 WBC 12.1 H 10.3 (4.5-11.0) K/mm3 RBC 5.55 H 5.36 H (3.65-5.03) M/mm3 Hgb 14.2 13.8 (10.1-14.3) gm/dl Hct 45.1 H 43.7 H (30.3-42.9) % Plt Count 202 181 (140-440) K/mm3 Lymph # 1.9 1.8 (1.2-5.4) K/mm3 [place] # 0.5 0.7 (0.0-0.8) K/mm3 Eos # 0.1 0.1 (0.0-0.4) K/mm3 Baso # 0.1 0.1 (0.0-0.1) K/mm3 Comprehensive Metabolic Panel 08/30/18 08/31/18 Range/Units 20:45 04:07 Sodium 135 L 135 L (137-145) mmol/L Potassium 4.8 4.6 (3.6-5.0) mmol/L Chloride 98.6 97.6 L (98-107) mmol/L Carbon Dioxide 22 22 (22-30) mmol/L BUN 22 H 19 H (7-17) mg/dL Creatinine 0.7 0.6 L (0.7-1.2) mg/dL Glucose 144 H 112 H (65-100) mg/dL Calcium 8.4 8.3 L (8.4-10.2) mg/dL AST 14 (5-40) units/L ALT 10 (7-56) units/L Alkaline Phosphatase 138 H (35-129) units/L Total Protein 6.3 (6.3-8.2) g/dL Albumin 3.4 L (3.9-5) g/dL Assessment and Plan Acute on chronic respirator failure Multifactorial including right heart failure Recently diagnosed atrial flutter with RVR. Ischemic cardiomyopathy with EF 30-35% CAD s/p CABG Cor Pulmonale COPD Severe pulmonary hypertension Htn DM PAD Chronic non-compliance with medical therapy and medical follow up Recommend: Continue diuresis and ongoing treatment for COPD. Restart anticoagulation and low dose beta selective beta jesús.
[2018-08-31] MEDS: BABY ASPIRIN PO SCH (10:58)
[2018-08-31] MEDS: LEVAQUIN 750MG/150ML 750 MG/150 ML BAG IV SCH (11:00)
[2018-08-31] MEDS: ZESTRIL PO SCH (11:02)
--- NOTE | 2018-08-31 11:03 | Progress Note ---
Assessment and Plan Assessment and plan: Patient is a 58 yo woman with a history of hypertension, type 2 DM, chronic hypoxic respiratory failure on home O2 due to COPD, cor pulmonale, CHF with EF 30-35%, aflutter, pulmonary hypertension, ICM, CAD s/p CABG in 2013 who presents to [facility] ED with son, productive cough and abd redness with pains. She was just discharged from here on08/11/[address] Knox. /Acute on chronic combine heart failure: Cardiology is following and provide additional history not in our EMR, diuresis /Aute COPD exacerbation: treat with nebs, iv steroids, empiric abx /Acute on chronic hypoxic respiratory failure, poa: treat the above /Abdominal cellulitis with bilateral groin diaper rash /History of Coronary artery disease: treat with asa and statin /Aflutter with RVR: restart A/C /Hypertension: low salt cardiac diet /Diabetes mellitus type 2: ssi, ada diet History Interval history: Patient was seen and examined. Follow-up on current diagnosis chf and copd. Overnight uneventful. Patient denies any chest pain, shortness breath, nausea/vomiting or severe headaches. Imaging, nursing note, chart, labs and old chart reviewed. Discussed with patient. Hospitalist Physical - Physical exam Narrative exam: Gen: unkempt morbid obese, chronic disable, bmi 50.6 WDWN, NAD, Awake, Alert, Orientated HEENT: NCAT, EOMI, PERRL, OP Clear Neck: supple, no adenopathy, no thyromegaly, + JVD CVS/Heart: regular irregular normal S1S2, pulses present bilaterally Chest/Lungs: diminished bs bilateral with rhonchi Symmetrical chest expansion, good air entry bilaterally GI/Abdomen: soft, NTND, good bowel sounds, no guarding or rebound /Bladder: no suprapubic tenderness, no CVA or paraspinal tenderness Extermity/Skin: + ble edema, obvious red small raised rash lower abdomen under pannus and bilateral groin area MSK: FROM x 4 Neuro: CN 2-12 grossly intact, no new focal deficits Psych: calm - Constitutional Vitals: Temp Pulse Resp BP Pulse Ox 97.4 F L 135 H 20 99/63 98 08/31/18 08:00 08/31/18 09:40 08/31/18 09:40 08/31/18 08:00 08/31/18 09:40 Results - Labs CBC & Chem 7: 08/31/18 04:07 08/31/18 04:07 Labs: Laboratory Last Values WBC 10.3 K/mm3 (4.5-11.0) 08/31/18 04:07 RBC 5.36 M/mm3 (3.65-5.03) H 08/31/18 04:07 Hgb 13.8 gm/dl (10.1-14.3) 08/31/18 04:07 Hct 43.7 % (30.3-42.9) H 08/31/18 04:07 MCV 82 fl (79-97) 08/31/18 04:07 MCH 26 pg (28-32) L 08/31/18 04:07 MCHC 32 % (30-34) 08/31/18 04:07 RDW 21.2 % (13.2-15.2) H 08/31/18 04:07 Plt Count 181 K/mm3 (140-440) 08/31/18 04:07 Lymph % (Auto) 17.2 % (13.4-35.0) 08/31/18 04:07 [place] % (Auto) 6.5 % (0.0-7.3) 08/31/18 04:07 Eos % (Auto) 1.5 % (0.0-4.3) 08/31/18 04:07 Baso % (Auto) 0.9 % (0.0-1.8) 08/31/18 04:07 Lymph # 1.8 K/mm3 (1.2-5.4) 08/31/18 04:07 [place] # 0.7 K/mm3 (0.0-0.8) 08/31/18 04:07 Eos # 0.1 K/mm3 (0.0-0.4) 08/31/18 04:07 Baso # 0.1 K/mm3 (0.0-0.1) 08/31/18 04:07 Seg Neutrophils % 73.9 % (40.0-70.0) H 08/31/18 04:07 Seg Neutrophils # 7.6 K/mm3 (1.8-7.7) 08/31/18 04:07 Sodium 135 mmol/L (137-145) L 08/31/18 04:07 Potassium 4.6 mmol/L (3.6-5.0) 08/31/18 04:07 Chloride 97.6 mmol/L (98-107) L 08/31/18 04:07 Carbon Dioxide 22 mmol/L (22-30) 08/31/18 04:07 Anion Gap 20 mmol/L 08/31/18 04:07 BUN 19 mg/dL (7-17) H 08/31/18 04:07 Creatinine 0.6 mg/dL (0.7-1.2) L 08/31/18 04:07 Estimated GFR > 60 ml/min 08/31/18 04:07 BUN/Creatinine Ratio 32 % 08/31/18 04:07 Glucose 112 mg/dL (65-100) H 08/31/18 04:07 POC Glucose 109 (70-105) H 08/31/18 08:01 Lactic Acid 1.50 mmol/L (0.7-2.0) 08/30/18 20:45 Calcium 8.3 mg/dL (8.4-10.2) L 08/31/18 04:07 Total Bilirubin 0.70 mg/dL (0.1-1.2) 08/30/18 20:45 AST 14 units/L (5-40) 08/30/18 20:45 ALT 10 units/L (7-56) 08/30/18 20:45 Alkaline Phosphatase 138 units/L (35-129) H 08/30/18 20:45 Total Creatine Kinase 29 units/L (30-135) L 08/31/18 04:07 CK-MB (CK-2) 2.4 ng/mL (0.0-4.0) 08/31/18 04:07 CK-MB (CK-2) Rel Index 8.2 (0-4) H 08/31/18 04:07 Troponin T < 0.010 ng/mL (0.00-0.029) 08/31/18 04:07 Total Protein 6.3 g/dL (6.3-8.2) 08/30/18 20:45 Albumin 3.4 g/dL (3.9-5) L 08/30/18 20:45 Albumin/Globulin Ratio 1.2 % 08/30/18 20:45 Urine Color Yellow (Yellow) 08/30/18 23:36 Urine Turbidity Clear (Clear) 08/30/18 23:36 Urine pH 5.0 (5.0-7.0) 08/30/18 23:36 Ur Specific [place] 1.027 (1.003-1.030) 08/30/18 23:36 Urine Protein <15 mg/dl mg/dL (Negative) 08/30/18 23:36 Urine Glucose (UA) Neg mg/dL (Negative) 08/30/18 23:36 Urine Ketones Neg mg/dL (Negative) 08/30/18 23:36 Urine Blood Neg (Negative) 08/30/18 23:36 Urine Nitrite Neg (Negative) 08/30/18 23:36 Urine Bilirubin Neg (Negative) 08/30/18 23:36 Urine Urobilinogen 4.0 mg/dL (<2.0) 08/30/18 23:36 Ur Leukocyte Esterase Neg (Negative) 08/30/18 23:36 Urine WBC (Auto) < 1.0 /HPF (0.0-6.0) 08/30/18 23:36 Urine RBC (Auto) 1.0 /HPF (0.0-6.0) 08/30/18 23:36 U Epithel Cells (Auto) 12.0 /HPF (0-13.0) 08/30/18 23:36 Urine Bacteria (Auto) 1+ /HPF (Negative) 08/30/18 23:36 Urine Mucus Few /HPF 08/30/18 23:36 Blood Type A POSITIVE 08/30/18 20:45 Antibody Screen Negative 08/30/18 20:45
[2018-08-31 11:43] LABS: Creatine Kinase MB 2.2 ng/mL (0.0-4.0)
[2018-08-31] MEDS: LOPRESSOR PO SCH ×2 (12:54→21:00)
[2018-08-31] MEDS: ELIQUIS PO SCH ×2 (12:56→21:00)
[2018-08-31] MEDS: SODIUM CHLORIDE FLUSH SYRINGE 10 ML IV SCH ×2 (20:59→21:01)
[2018-08-31] MEDS: AMBIEN PO PRN (21:00)
[2018-09-01] MEDS: SOLU-Medrol IV SCH ×5 (00:27→23:53)
[2018-09-01] MEDS: PERCOCET 5/325 PO PRN ×4 (00:27→18:25)
[2018-09-01] MEDS: XANAX PO PRN ×2 (04:20→21:57)
[2018-09-01] MEDS: LASIX IV SCH ×2 (06:00→18:30)
[2018-09-01] MEDS: ATROVENT IH SCH ×3 (07:08→20:35)
[2018-09-01] MEDS: NEURONTIN PO SCH ×3 (08:50→21:58)
[2018-09-01] MEDS: HumaLOG SUB-Q SCH ×4 (08:50→22:07)
--- NOTE | 2018-09-01 10:40 | Progress Note ---
<MAMADOU ATKINS - Last Filed: 09/01/18 10:42> Assessment and Plan Acute on chronic respiratory failure Multifactorial including right heart failure, COPD and tobacco abuse Persistent Atrial fib/flutter, rate control with metoprolol on eliquis for oral anticoagulation therapy Ischemic cardiomyopathy with EF 30-35% CAD s/p 3v CABG in 2014 Cor Pulmonale COPD Severe pulmonary hypertension Htn DM PAD s/p TMA Chronic non-compliance with medical therapy and medical follow up Recommend: Patient continues to have shortness of breath associated with diffuse wheezes, recommend further consultation with the patient's applications consultant. Continue medical therapy for persistent Afib/flutter, coronary artery disease and ischemic cardiomyopathy. Fluid/sodium restriction. Subjective Date of service: 09/01/18 Interval history: Patient reports she is feeling somewhat better. She reports her breathing is better. Objective Vital Signs Temp Pulse Pulse Pulse Resp Resp Resp 09/01/18 07:33 20 09/01/18 07:16 97.5 F L 115 H 20 09/01/18 07:09 09/01/18 07:08 75 20 09/01/18 07:00 22 09/01/18 06:00 20 09/01/18 04:22 97.1 F L 113 H 18 09/01/18 01:27 20 09/01/18 00:28 20 09/01/18 00:27 20 08/31/18 23:14 97.8 F 88 16 08/31/18 21:00 115 H 08/31/18 20:31 08/31/18 20:20 120 H 20 08/31/18 19:31 133 H 08/31/18 19:18 20 08/31/18 19:14 97.3 F L 115 H 18 08/31/18 18:52 132 H 20 08/31/18 18:42 124 H 20 08/31/18 18:18 20 08/31/18 16:20 65 08/31/18 16:18 115 H 08/31/18 13:31 127 H 20 08/31/18 13:21 112 H 20 08/31/18 12:54 138 H 08/31/18 12:41 97.4 F L 133 H 20 08/31/18 11:02 08/31/18 10:59 20 BP Pulse Ox 09/01/18 07:33 09/01/18 07:16 79/55 95 09/01/18 07:09 97 09/01/18 07:08 09/01/18 07:00 09/01/18 06:00 09/01/18 04:22 101/69 99 09/01/18 01:27 09/01/18 00:28 09/01/18 00:27 08/31/18 23:14 111/71 96 08/31/18 21:00 101/77 08/31/18 20:31 95 08/31/18 20:20 97 08/31/18 19:31 08/31/18 19:18 08/31/18 19:14 101/77 92 08/31/18 18:52 08/31/18 18:42 08/31/18 18:18 08/31/18 16:20 90 08/31/18 16:18 128/103 100 08/31/18 13:31 08/31/18 13:21 08/31/18 12:54 115/85 08/31/18 12:41 115/85 94 08/31/18 11:02 112/74 08/31/18 10:59 - Physical Examination General: No Apparent Distress HEENT: Positive: PERRL Cardiac: Positive: irregularly irregular Lungs: Positive: Decreased Breath Sounds, Wheezes Extremities: Present: +1 Edema - Labs and Meds Cardiac Enzymes 08/31/18 Range/Units 10:43 CK-MB (CK-2) 2.2 (0.0-4.0) ng/mL <JANAE FRASER - Last Filed: 09/01/18 15:33> Assessment and Plan I have seen and evaluated the patient, and agree with the assessment and plan. Continue with the present medical therapy for treatment of coronary artery disease and ischemic cardiomyopathy. Objective Vital Signs Temp Pulse Pulse Pulse Resp Resp Resp 09/01/18 15:10 107 H 20 09/01/18 11:41 20 09/01/18 11:37 97.3 F L 121 H 20 09/01/18 09:36 28 H 09/01/18 07:33 20 09/01/18 07:21 78 20 09/01/18 07:16 97.5 F L 115 H 20 09/01/18 07:09 09/01/18 07:08 75 20 09/01/18 07:00 22 03/04/19 06:00 20 09/01/18 04:22 97.1 F L 113 H 18 09/01/18 01:27 20 09/01/18 00:28 20 09/01/18 00:27 20 08/31/18 23:14 97.8 F 88 16 08/31/18 21:00 115 H 08/31/18 20:31 08/31/18 20:20 120 H 20 08/31/18 19:31 133 H 08/31/18 19:18 20 08/31/18 19:14 97.3 F L 115 H 18 08/31/18 18:52 132 H 20 08/31/18 18:42 124 H 20 08/31/18 18:18 20 08/31/18 16:20 65 08/31/18 16:18 115 H BP BP Pulse Ox 09/01/18 15:10 09/01/18 11:41 09/01/18 11:37 103/74 91/63 90 09/01/18 09:36 153/82 09/01/18 07:33 09/01/18 07:21 09/01/18 07:16 79/55 95 09/01/18 07:09 97 09/01/18 07:08 09/01/18 07:00 09/01/18 06:00 09/01/18 04:22 101/69 99 09/01/18 01:27 09/01/18 00:28 09/01/18 00:27 08/31/18 23:14 111/71 96 08/31/18 21:00 101/77 08/31/18 20:31 95 08/31/18 20:20 97 08/31/18 19:31 08/31/18 19:18 08/31/18 19:14 101/77 92 08/31/18 18:52 08/31/18 18:42 08/31/18 18:18 08/31/18 16:20 90 08/31/18 16:18 128/103 100
[2018-09-01] MEDS: ELIQUIS PO SCH ×2 (11:33→21:58)
[2018-09-01] MEDS: LEVAQUIN 750MG/150ML 750 MG/150 ML BAG IV SCH (11:36)
[2018-09-01] MEDS: BABY ASPIRIN PO SCH (11:36)
[2018-09-01] MEDS: LOPRESSOR PO SCH ×2 (11:37→21:58)
[2018-09-01] MEDS: ZESTRIL PO SCH (11:41)
--- NOTE | 2018-09-01 15:57 | Progress Note ---
Assessment and Plan Assessment and plan: Patient is a 58 yo woman with a history of hypertension, type 2 DM, chronic hypoxic respiratory failure on home O2 due to COPD, cor pulmonale, CHF with EF 30-35%, aflutter, pulmonary hypertension, ICM, CAD s/p CABG in 2013 who presents to [facility] ED with son, productive cough and abd redness with pains. She was just discharged from here on08/11/[address] Knox. /Acute on chronic combine heart failure: Cardiology is following and provided additional history not in our EMR, diuresis /Aute COPD exacerbation: treat with nebs, iv steroids, empiric abx /Acute on chronic hypoxic respiratory failure, poa: treat the above /Abdominal cellulitis with bilateral groin diaper rash /History of Coronary artery disease: treat with asa and statin /Aflutter with RVR: restart A/C /Hypertension: low salt cardiac diet /Diabetes mellitus type 2: ssi, ada diet History Interval history: Patient was seen and examined. Follow-up on current diagnosis chf and copd. Overnight uneventful. Patient denies any chest pain, shortness breath, nausea/vomiting or severe headaches. Imaging, nursing note, chart, labs and old chart reviewed. Discussed with patient. Hospitalist Physical - Physical exam Narrative exam: Gen: unkempt morbid obese, chronic disable, bmi 50.6 WDWN, NAD, Awake, Alert, Orientated HEENT: NCAT, EOMI, PERRL, OP Clear Neck: supple, no adenopathy, no thyromegaly, + JVD CVS/Heart: regular irregular normal S1S2, pulses present bilaterally Chest/Lungs: diminished bs bilateral with rhonchi Symmetrical chest expansion, good air entry bilaterally GI/Abdomen: soft, NTND, good bowel sounds, no guarding or rebound /Bladder: no suprapubic tenderness, no CVA or paraspinal tenderness Extermity/Skin: + ble edema, obvious red small raised rash lower abdomen under pannus and bilateral groin area MSK: FROM x 4 Neuro: CN 2-12 grossly intact, no new focal deficits Psych: calm - Constitutional Vitals: Temp Pulse Resp BP Pulse Ox 97.3 F L 107 H 20 91/63 90 09/01/18 11:37 09/01/18 15:10 09/01/18 15:10 09/01/18 11:37 09/01/18 11:37 Results - Labs CBC & Chem 7: 08/31/18 04:07 08/31/18 04:07 Labs: Laboratory Last Values WBC 10.3 K/mm3 (4.5-11.0) 08/31/18 04:07 RBC 5.36 M/mm3 (3.65-5.03) H 08/31/18 04:07 Hgb 13.8 gm/dl (10.1-14.3) 08/31/18 04:07 Hct 43.7 % (30.3-42.9) H 08/31/18 04:07 MCV 82 fl (79-97) 08/31/18 04:07 MCH 26 pg (28-32) L 08/31/18 04:07 MCHC 32 % (30-34) 08/31/18 04:07 RDW 21.2 % (13.2-15.2) H 08/31/18 04:07 Plt Count 181 K/mm3 (140-440) 08/31/18 04:07 Lymph % (Auto) 17.2 % (13.4-35.0) 08/31/18 04:07 [place] % (Auto) 6.5 % (0.0-7.3) 08/31/18 04:07 Eos % (Auto) 1.5 % (0.0-4.3) 08/31/18 04:07 Baso % (Auto) 0.9 % (0.0-1.8) 08/31/18 04:07 Lymph # 1.8 K/mm3 (1.2-5.4) 08/31/18 04:07 [place] # 0.7 K/mm3 (0.0-0.8) 08/31/18 04:07 Eos # 0.1 K/mm3 (0.0-0.4) 08/31/18 04:07 Baso # 0.1 K/mm3 (0.0-0.1) 08/31/18 04:07 Seg Neutrophils % 73.9 % (40.0-70.0) H 08/31/18 04:07 Seg Neutrophils # 7.6 K/mm3 (1.8-7.7) 08/31/18 04:07 Sodium 135 mmol/L (137-145) L 08/31/18 04:07 Potassium 4.6 mmol/L (3.6-5.0) 08/31/18 04:07 Chloride 97.6 mmol/L (98-107) L 08/31/18 04:07 Carbon Dioxide 22 mmol/L (22-30) 08/31/18 04:07 Anion Gap 20 mmol/L 08/31/18 04:07 BUN 19 mg/dL (7-17) H 08/31/18 04:07 Creatinine 0.6 mg/dL (0.7-1.2) L 08/31/18 04:07 Estimated GFR > 60 ml/min 08/31/18 04:07 BUN/Creatinine Ratio 32 % 08/31/18 04:07 Glucose 112 mg/dL (65-100) H 08/31/18 04:07 POC Glucose 257 (70-105) H 09/01/18 11:27 Lactic Acid 1.50 mmol/L (0.7-2.0) 08/30/18 20:45 Calcium 8.3 mg/dL (8.4-10.2) L 08/31/18 04:07 Total Bilirubin 0.70 mg/dL (0.1-1.2) 08/30/18 20:45 AST 14 units/L (5-40) 08/30/18 20:45 ALT 10 units/L (7-56) 08/30/18 20:45 Alkaline Phosphatase 138 units/L (35-129) H 08/30/18 20:45 Total Creatine Kinase 34 units/L (30-135) 08/31/18 10:43 CK-MB (CK-2) 2.2 ng/mL (0.0-4.0) 08/31/18 10:43 CK-MB (CK-2) Rel Index 6.4 (0-4) H 08/31/18 10:43 Troponin T < 0.010 ng/mL (0.00-0.029) 08/31/18 10:43 Total Protein 6.3 g/dL (6.3-8.2) 08/30/18 20:45 Albumin 3.4 g/dL (3.9-5) L 08/30/18 20:45 Albumin/Globulin Ratio 1.2 % 08/30/18 20:45 Urine Color Yellow (Yellow) 08/30/18 23:36 Urine Turbidity Clear (Clear) 08/30/18 23:36 Urine pH 5.0 (5.0-7.0) 08/30/18 23:36 Ur Specific [place] 1.027 (1.003-1.030) 08/30/18 23:36 Urine Protein <15 mg/dl mg/dL (Negative) 08/30/18 23:36 Urine Glucose (UA) Neg mg/dL (Negative) 08/30/18 23:36 Urine Ketones Neg mg/dL (Negative) 08/30/18 23:36 Urine Blood Neg (Negative) 08/30/18 23:36 Urine Nitrite Neg (Negative) 08/30/18 23:36 Urine Bilirubin Neg (Negative) 08/30/18 23:36 Urine Urobilinogen 4.0 mg/dL (<2.0) 08/30/18 23:36 Ur Leukocyte Esterase Neg (Negative) 08/30/18 23:36 Urine WBC (Auto) < 1.0 /HPF (0.0-6.0) 08/30/18 23:36 Urine RBC (Auto) 1.0 /HPF (0.0-6.0) 08/30/18 23:36 U Epithel Cells (Auto) 12.0 /HPF (0-13.0) 08/30/18 23:36 Urine Bacteria (Auto) 1+ /HPF (Negative) 08/30/18 23:36 Urine Mucus Few /HPF 08/30/18 23:36 Blood Type A POSITIVE 08/30/18 20:45 Antibody Screen Negative 08/30/18 20:45
[2018-09-01] MEDS: AMBIEN PO PRN (21:57)
[2018-09-01] MEDS: SODIUM CHLORIDE FLUSH SYRINGE 10 ML IV SCH (21:59)
[2018-09-01] MEDS: MYCOSTATIN TP SCH (22:00)
[2018-09-02] MEDS: PERCOCET 5/325 PO PRN ×4 (02:21→17:47)
[2018-09-02] MEDS: LASIX IV SCH ×2 (06:25→17:47)
[2018-09-02] MEDS: SOLU-Medrol IV SCH ×3 (06:25→17:47)
[2018-09-02 07:23] LABS: Hematocrit 43.5 % (30.3-42.9); Hemoglobin 13.6 gm/dl (10.1-14.3); Mean Corpuscular HGB Conc 31 % (30-34); Mean Corpuscular Volume 82 fl (79-97); Platelet Count 201 K/mm3 (140-440); Red Blood Count 5.29 M/mm3 (3.65-5.03)
[2018-09-02 07:30] LABS: Red Cell Distribution Width 20.6 % (13.2-15.2)
[2018-09-02 07:38] LABS: BUN/Creatinine Ratio 44; Blood Urea Nitrogen 35 mg/dL (7-17); Hemolysis Index 28
[2018-09-02] MEDS: BABY ASPIRIN PO SCH (10:15)
[2018-09-02] MEDS: LOPRESSOR PO SCH ×2 (10:16→22:09)
[2018-09-02] MEDS: XANAX PO PRN ×2 (10:16→22:09)
[2018-09-02] MEDS: ZESTRIL PO SCH (10:17)
[2018-09-02] MEDS: LEVAQUIN 750MG/150ML 750 MG/150 ML BAG IV SCH (10:18)
[2018-09-02] MEDS: MYCOSTATIN TP SCH ×3 (10:20→22:16)
[2018-09-02] MEDS: NEURONTIN PO SCH ×3 (10:23→21:05)
--- NOTE | 2018-09-02 10:59 | Progress Note ---
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 Continue medical therapy for persistent Afib/flutter, coronary artery disease and ischemic cardiomyopathy. Fluid/sodium restriction. Subjective Date of service: 09/02/18 Interval history: Still with shortness of breath and active wheezing. Patient admits she is diuresing well. Objective Vital Signs Temp Pulse Pulse Pulse Resp Resp BP 09/02/18 10:16 75 09/02/18 08:49 22 09/02/18 07:42 97.3 F L 105 H 20 100/69 09/02/18 04:55 98.0 F 114 H 18 120/82 09/02/18 00:05 98.0 F 107 H 18 117/69 09/01/18 22:00 118 H 118 H 2 L 09/01/18 21:58 128 H 125/97 09/01/18 20:50 118 H 20 09/01/18 20:40 09/01/18 19:42 98.0 F 132 H 18 125/97 09/01/18 18:25 22 09/01/18 17:23 97.3 F L 20 09/01/18 17:21 97.3 F L 128 H 20 112/79 09/01/18 16:01 98 H 20 09/01/18 15:10 107 H 20 09/01/18 11:41 20 09/01/18 11:37 97.3 F L 121 H 20 103/74 BP Pulse Ox 09/02/18 10:16 09/02/18 08:49 09/02/18 07:42 100 09/02/18 04:55 98 09/02/18 00:05 96 09/01/18 22:00 97 09/01/18 21:58 09/01/18 20:50 09/01/18 20:40 98 09/01/18 19:42 97 09/01/18 18:25 03/04/19 17:23 09/01/18 17:21 96 09/01/18 16:01 09/01/18 15:10 09/01/18 11:41 09/01/18 11:37 91/63 90 - Physical Examination General: No Apparent Distress HEENT: Positive: PERRL Cardiac: Positive: irregularly irregular Lungs: Positive: Wheezes Neuro: Positive: Grossly Intact Extremities: Present: +1 Edema - Labs and Meds CBC 09/02/18 Range/Units 06:18 WBC 10.0 (4.5-11.0) K/mm3 RBC 5.29 H (3.65-5.03) M/mm3 Hgb 13.6 (10.1-14.3) gm/dl Hct 43.5 H (30.3-42.9) % Plt Count 201 (140-440) K/mm3 Comprehensive Metabolic Panel 09/02/18 Range/Units 06:18 Sodium 135 L (137-145) mmol/L Potassium 5.3 H (3.6-5.0) mmol/L Chloride 101.2 (98-107) mmol/L Carbon Dioxide 19 L (22-30) mmol/L BUN 35 H (7-17) mg/dL Creatinine 0.8 (0.7-1.2) mg/dL Glucose 212 H (65-100) mg/dL Calcium 8.0 L (8.4-10.2) mg/dL
[2018-09-02] MEDS: ATROVENT IH SCH ×2 (11:49→17:06)
[2018-09-02] MEDS: HumaLOG SUB-Q SCH ×5 (12:43→22:40)
[2018-09-02] MEDS: ELIQUIS PO SCH ×2 (12:43→22:09)
[2018-09-02] MEDS: SODIUM CHLORIDE FLUSH SYRINGE 10 ML IV SCH ×3 (12:44→22:15)
--- NOTE | 2018-09-02 14:55 | Progress Note ---
Assessment and Plan Assessment and plan: Patient is a 58 yo woman with a history of hypertension, type 2 DM, chronic hypoxic respiratory failure on home O2 due to COPD, cor pulmonale, CHF with EF 30-35%, aflutter, pulmonary hypertension, ICM, CAD s/p CABG in 2013 who presents to [facility] ED with son, productive cough and abd redness with pains. She was just discharged from here on08/11/[address] Knox. /Acute on chronic combine heart failure: Cardiology is following and provided additional history not in our EMR, diuresis /Hyperkalemia: give kayexalate, repeat kcl /Aute COPD exacerbation: treat with nebs, iv steroids, empiric abx /Acute on chronic hypoxic respiratory failure, poa: treat the above /Abdominal cellulitis with bilateral groin diaper rash /History of Coronary artery disease: treat with asa and statin /Aflutter with RVR: restart A/C /Hypertension: low salt cardiac diet /Diabetes mellitus type 2: ssi, ada diet History Interval history: Patient was seen and examined. Follow-up on current diagnosis chf and copd. Overnight uneventful. Patient denies any chest pain, shortness breath, nausea/vomiting or severe headaches. Imaging, nursing note, chart, labs and old chart reviewed. Discussed with patient. Hospitalist Physical - Physical exam Narrative exam: Gen: unkempt morbid obese, chronic disable, bmi 50.6 WDWN, NAD, Awake, Alert, Orientated HEENT: NCAT, EOMI, PERRL, OP Clear Neck: supple, no adenopathy, no thyromegaly, + JVD CVS/Heart: regular irregular normal S1S2, pulses present bilaterally Chest/Lungs: diminished bs bilateral with rhonchi Symmetrical chest expansion, good air entry bilaterally GI/Abdomen: soft, NTND, good bowel sounds, no guarding or rebound /Bladder: no suprapubic tenderness, no CVA or paraspinal tenderness Extermity/Skin: + ble edema, obvious red small raised rash lower abdomen under pannus and bilateral groin area MSK: FROM x 4 Neuro: CN 2-12 grossly intact, no new focal deficits Psych: calm - Constitutional Vitals: Temp Pulse Resp BP Pulse Ox 97.6 F 113 H 16 107/73 99 09/02/18 12:50 09/02/18 12:50 09/02/18 12:50 09/02/18 12:50 09/02/18 12:50 Results - Labs CBC & Chem 7: 09/02/18 06:18 09/02/18 06:18 Labs: Laboratory Last Values WBC 10.0 K/mm3 (4.5-11.0) 09/02/18 06:18 RBC 5.29 M/mm3 (3.65-5.03) H 09/02/18 06:18 Hgb 13.6 gm/dl (10.1-14.3) 09/02/18 06:18 Hct 43.5 % (30.3-42.9) H 09/02/18 06:18 MCV 82 fl (79-97) 09/02/18 06:18 MCH 26 pg (28-32) L 09/02/18 06:18 MCHC 31 % (30-34) 09/02/18 06:18 RDW 20.6 % (13.2-15.2) H 09/02/18 06:18 Plt Count 201 K/mm3 (140-440) 09/02/18 06:18 Lymph % (Auto) 17.2 % (13.4-35.0) 08/31/18 04:07 [place] % (Auto) 6.5 % (0.0-7.3) 08/31/18 04:07 Eos % (Auto) 1.5 % (0.0-4.3) 08/31/18 04:07 Baso % (Auto) 0.9 % (0.0-1.8) 08/31/18 04:07 Lymph # 1.8 K/mm3 (1.2-5.4) 08/31/18 04:07 [place] # 0.7 K/mm3 (0.0-0.8) 08/31/18 04:07 Eos # 0.1 K/mm3 (0.0-0.4) 08/31/18 04:07 Baso # 0.1 K/mm3 (0.0-0.1) 08/31/18 04:07 Seg Neutrophils % 73.9 % (40.0-70.0) H 08/31/18 04:07 Seg Neutrophils # 7.6 K/mm3 (1.8-7.7) 08/31/18 04:07 Sodium 135 mmol/L (137-145) L 09/02/18 06:18 Potassium 5.3 mmol/L (3.6-5.0) H 09/02/18 06:18 Chloride 101.2 mmol/L (98-107) 09/02/18 06:18 Carbon Dioxide 19 mmol/L (22-30) L 09/02/18 06:18 Anion Gap 20 mmol/L 09/02/18 06:18 BUN 35 mg/dL (7-17) H 09/02/18 06:18 Creatinine 0.8 mg/dL (0.7-1.2) 09/02/18 06:18 Estimated GFR > 60 ml/min 09/02/18 06:18 BUN/Creatinine Ratio 44 % 09/02/18 06:18 Glucose 212 mg/dL (65-100) H 09/02/18 06:18 POC Glucose 242 (70-105) H 09/02/18 11:44 Lactic Acid 1.50 mmol/L (0.7-2.0) 08/30/18 20:45 Calcium 8.0 mg/dL (8.4-10.2) L 09/02/18 06:18 Total Bilirubin 0.70 mg/dL (0.1-1.2) 08/30/18 20:45 AST 14 units/L (5-40) 08/30/18 20:45 ALT 10 units/L (7-56) 08/30/18 20:45 Alkaline Phosphatase 138 units/L (35-129) H 08/30/18 20:45 Total Creatine Kinase 34 units/L (30-135) 08/31/18 10:43 CK-MB (CK-2) 2.2 ng/mL (0.0-4.0) 08/31/18 10:43 CK-MB (CK-2) Rel Index 6.4 (0-4) H 08/31/18 10:43 Troponin T < 0.010 ng/mL (0.00-0.029) 08/31/18 10:43 Total Protein 6.3 g/dL (6.3-8.2) 08/30/18 20:45 Albumin 3.4 g/dL (3.9-5) L 08/30/18 20:45 Albumin/Globulin Ratio 1.2 % 08/30/18 20:45 Urine Color Yellow (Yellow) 08/30/18 23:36 Urine Turbidity Clear (Clear) 08/30/18 23:36 Urine pH 5.0 (5.0-7.0) 08/30/18 23:36 Ur Specific [place] 1.027 (1.003-1.030) 08/30/18 23:36 Urine Protein <15 mg/dl mg/dL (Negative) 08/30/18 23:36 Urine Glucose (UA) Neg mg/dL (Negative) 08/30/18 23:36 Urine Ketones Neg mg/dL (Negative) 08/30/18 23:36 Urine Blood Neg (Negative) 08/30/18 23:36 Urine Nitrite Neg (Negative) 08/30/18 23:36 Urine Bilirubin Neg (Negative) 08/30/18 23:36 Urine Urobilinogen 4.0 mg/dL (<2.0) 08/30/18 23:36 Ur Leukocyte Esterase Neg (Negative) 08/30/18 23:36 Urine WBC (Auto) < 1.0 /HPF (0.0-6.0) 08/30/18 23:36 Urine RBC (Auto) 1.0 /HPF (0.0-6.0) 08/30/18 23:36 U Epithel Cells (Auto) 12.0 /HPF (0-13.0) 08/30/18 23:36 Urine Bacteria (Auto) 1+ /HPF (Negative) 08/30/18 23:36 Urine Mucus Few /HPF 08/30/18 23:36 Blood Type A POSITIVE 08/30/18 20:45 Antibody Screen Negative 08/30/18 20:45
[2018-09-02] MEDS: ATROVENT IH PRN (15:38)
[2018-09-02] MEDS ORDERED: KIONEX PO ONE (15:50)
[2018-09-02] MEDS: DUONEB *Not for PRN Use IH SCH (20:21)
[2018-09-02] MEDS: AMBIEN PO PRN (22:09)
[2018-09-03] MEDS: SOLU-Medrol IV SCH ×4 (00:15→17:47)
[2018-09-03] MEDS: PERCOCET 5/325 PO PRN ×3 (01:44→18:50)
[2018-09-03] MEDS: LASIX IV SCH ×2 (06:00→17:47)
[2018-09-03 07:26] LABS: BUN/Creatinine Ratio 57; Blood Urea Nitrogen 40 mg/dL (7-17); Calcium 7.9 mg/dL (8.4-10.2); Hemolysis Index 26
[2018-09-03] MEDS: DUONEB *Not for PRN Use IH SCH ×3 (08:40→19:58)
[2018-09-03 08:42] LABS: Hematocrit 44.6 % (30.3-42.9); Hemoglobin 13.6 gm/dl (10.1-14.3); Red Blood Count 5.44 M/mm3 (3.65-5.03)
[2018-09-03 08:43] LABS: Mean Platelet Volume 7.4 fl (6-12); Red Cell Distribution Width 21.2 % (13.2-15.2)
[2018-09-03] MEDS: ZESTRIL PO SCH (09:54)
[2018-09-03] MEDS: LEVAQUIN PO SCH (09:55)
[2018-09-03] MEDS: BABY ASPIRIN PO SCH (09:56)
[2018-09-03] MEDS: LOPRESSOR PO SCH ×2 (09:57→21:58)
[2018-09-03] MEDS: NEURONTIN PO SCH ×3 (09:57→20:10)
[2018-09-03] MEDS: ELIQUIS PO SCH ×2 (09:57→21:57)
[2018-09-03] MEDS: SODIUM CHLORIDE FLUSH SYRINGE 10 ML IV SCH ×2 (09:58→22:02)
[2018-09-03] MEDS: MYCOSTATIN TP SCH ×3 (09:58→22:03)
[2018-09-03] MEDS: HumaLOG SUB-Q SCH ×4 (10:32→22:07)
--- NOTE | 2018-09-03 11:12 | Progress Note ---
Assessment and Plan Acute on chronic respiratory failure Multifactorial including right heart failure, COPD and tobacco abuse Hyperkalemia Persistent Atrial fib/flutter, rate control with metoprolol on eliquis for oral anticoagulation therapy Ischemic cardiomyopathy with EF 30-35% CAD s/p 3v CABG in 2014 Cor Pulmonale COPD Severe pulmonary hypertension Htn DM PAD s/p TMA Chronic non-compliance with medical therapy and medical follow up Recommend: Fluid/sodium restriction. Continue medical therapy for persistent Afib/flutter, coronary artery disease and ischemic cardiomyopathy. Subjective Date of service: 09/03/18 Interval history: No cardiac events overnight. Aflutter with a well controlled ventricular rate on telemetry. Objective Vital Signs Temp Pulse Pulse Pulse Pulse Resp Resp 09/03/18 10:44 115 H 22 09/03/18 10:38 97.9 F 09/03/18 08:42 09/03/18 08:41 94 H 94 H 16 09/03/18 04:26 98.2 F 114 H 22 09/03/18 01:05 98.0 F 122 H 17 09/02/18 22:09 123 H 09/02/18 22:00 123 H 123 H 2 L 09/02/18 20:59 98.3 F 89 18 09/02/18 20:31 98 H 18 09/02/18 20:25 09/02/18 20:21 104 H 18 09/02/18 16:20 97.2 F L 77 20 09/02/18 15:50 92 H 18 09/02/18 15:38 94 H 22 09/02/18 12:50 97.6 F 113 H 16 09/02/18 11:58 91 H 17 09/02/18 11:55 09/02/18 11:48 108 H 20 Resp BP BP Pulse Ox 09/03/18 10:44 117/64 99 09/03/18 10:38 09/03/18 08:42 97 09/03/18 08:41 16 09/03/18 04:26 108/69 97 09/03/18 01:05 149/117 98 09/02/18 22:09 123/87 09/02/18 22:00 97 09/02/18 20:59 123/87 84 09/02/18 20:31 09/02/18 20:25 98 09/02/18 20:21 09/02/18 16:20 99/58 98 09/02/18 15:50 09/02/18 15:38 09/02/18 12:50 107/73 99 09/02/18 11:58 09/02/18 11:55 99 09/02/18 11:48 - Physical Examination General: No Apparent Distress HEENT: Positive: PERRL Cardiac: Positive: irregularly irregular Lungs: Positive: Decreased Breath Sounds, Wheezes Neuro: Positive: Grossly Intact Extremities: Present: +1 Edema - Labs and Meds CBC 09/03/18 Range/Units 06:20 WBC 8.2 (4.5-11.0) K/mm3 RBC 5.44 H (3.65-5.03) M/mm3 Hgb 13.6 (10.1-14.3) gm/dl Hct 44.6 H (30.3-42.9) % Plt Count 193 (140-440) K/mm3 Comprehensive Metabolic Panel 09/03/18 Range/Units 06:20 Sodium 136 L (137-145) mmol/L Potassium 4.4 (3.6-5.0) mmol/L Chloride 98.8 (98-107) mmol/L Carbon Dioxide 21 L (22-30) mmol/L BUN 40 H (7-17) mg/dL Creatinine 0.7 (0.7-1.2) mg/dL Glucose 236 H (65-100) mg/dL Calcium 7.9 L (8.4-10.2) mg/dL
--- NOTE | 2018-09-03 12:58 | Consultation ---
History of Present Illness Consult date: 09/03/18 Reason for consult: dyspnea, cough, COPD History of present illness: PULMONARY AND CRITICAL CARE CONSUL TATION DR. PAVON THANK YOU FOR ASKING US TO PARTICIPATE IN THE CARE OF THIS PATIENT. 58-year-old woman Morbidly Obese with a history of hypertension, diabetes, COPD, coronary artery disease, CHF comes emergency room with complaints of swelling of legs. Also complaining of PND, orthopnea, cough productive of green phlegm. Stated that her abdomen has been red over the last 1 month, she was given Gold bonds powder for treatment. Patient has history of smoking 1/2 a pack ad ay x 45 years.Counselled to stop smoking. Patient has history of COPD and on home O2. Denies alcohol or drug abuse. 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 She has four children. Patient presently on 2 litres O2. O2 saturation 97%. Past History Past Medical History: CAD, COPD, hypertension Past Surgical History: CABG Social history: smoking (2/3 ppd) Family history: CAD, hypertension Medications and Allergies Allergies Allergy/AdvReac Type Severity Reaction Status Date / Time Penicillins Allergy Itching Verified 04/03/18 12:43 Home Medications Medication Instructions Recorded Confirmed Last Taken Type ALPRAZolam [Xanax TAB] 1 mg PO PRN PRN tablet 04/07/18 08/31/18 08/09/18 13:00 Rx Furosemide [Lasix TAB] 40 mg PO QDAY #60 tablet 05/09/18 08/31/18 08/09/18 09:00 Rx Gabapentin [Neurontin] 300 mg PO TID #30 capsule 05/09/18 08/31/18 08/09/18 13:00 Rx Insulin NPH/Regular [NovoLIN 70/30] 10 unit SUB-Q BID #1 vial 05/09/18 08/31/18 08/08/18 07:00 Rx Ipratropium/Albuterol Sulfate 1 ampul IH QIDRT #120 ampul.neb 05/09/18 08/31/18 08/09/18 09:00 Rx [DUONEB *Not for PRN Use*] Lisinopril [Zestril TAB] 20 mg PO DAILY #30 tablet 05/09/18 08/31/18 07/28/18 09:00 Rx Zolpidem [Ambien] 5 mg PO QHS #15 tablet 05/09/18 08/31/18 08/08/18 21:00 Rx oxyCODONE /ACETAMINOPHEN [Percocet 1 tab PO Q4H PRN #12 tablet 05/09/18 08/31/18 08/08/18 21:00 Rx 5/325 mg] Aspirin [Aspirin BABY CHEW TAB] 81 mg PO DAILY 08/10/18 08/31/18 08/09/18 09:00 History AtorvaSTATin [Lipitor] 40 mg PO QHS 08/10/18 08/31/18 08/08/18 21:00 History Morphine [Morphine TAB] 30 mg PO DAILY PRN 08/31/18 08/31/18 Unknown History Active Meds: Active Medications Acetaminophen (Tylenol) 650 mg PO Q4H PRN PRN Reason: Pain MILD(1-3)/Fever >100.5/MCLAUGHLIN Last Admin: 09/02/18 10:16 Dose: 650 mg Documented by: Albuterol/Ipratropium (Duoneb *Not For Prn Use*) 1 ampul IH TIDRT [facility] Last Admin: 09/03/18 08:40 Dose: 1 ampul Documented by: Alprazolam (Xanax) 1 mg PO QHS PRN PRN Reason: Anxiety Last Admin: 09/02/18 22:09 Dose: 1 mg Documented by: Apixaban (Eliquis) 5 mg PO Q12HR [facility]; Protocol Last Admin: 09/03/18 09:57 Dose: 5 mg Documented by: Aspirin (Baby Aspirin) 81 mg PO DAILY [facility] Last Admin: 09/03/18 09:56 Dose: 81 mg Documented by: Atorvastatin Calcium (Lipitor) 40 mg PO QHS [facility] Last Admin: 09/02/18 22:09 Dose: 40 mg Documented by: Dextrose (D50w (25gm) Syringe) 50 ml IV PRN PRN PRN Reason: Hypoglycemia Furosemide (Lasix) 40 mg IV 0600,1800 [facility] Last Admin: 09/03/18 06:00 Dose: Not Given Documented by: Gabapentin (Neurontin) 300 mg PO TID [facility] Last Admin: 09/03/18 09:57 Dose: 300 mg Documented by: Insulin Human Isoph/Insulin Regular (Humulin 70/30) 14 unit SUB-Q BIDDIAB [facility] Last Admin: 09/03/18 09:57 Dose: 14 unit Documented by: Insulin Human Lispro (Humalog) 0 unit SUB-Q ACHS [facility]; Protocol Last Admin: 09/03/18 12:53 Dose: 6 unit Documented by: Ipratropium [place] (Atrovent) 0.5 mg IH Q4HRT PRN PRN Reason: Shortness Of Breath Last Admin: 09/02/18 15:38 Dose: 0.5 mg Documented by: Levofloxacin (Levaquin) 750 mg PO Q24HR [facility] Last Admin: 09/03/18 09:55 Dose: 750 mg Documented by: Lisinopril (Zestril) 2.5 mg PO QDAY [facility] Last Admin: 09/03/18 09:54 Dose: 2.5 mg Documented by: Methylprednisolone Sodium Succinate (Solu-Medrol) 125 mg IV Q6HR [facility] Last Admin: 09/03/18 12:53 Dose: 125 mg Documented by: Metoprolol Tartrate (Lopressor) 25 mg PO BID [facility] Last Admin: 09/03/18 09:57 Dose: 25 mg Documented by: Nystatin (Mycostatin) 1 applic TP TID [facility] Last Admin: 09/03/18 09:58 Dose: 1 applic Documented by: Ondansetron HCl (Zofran) 4 mg IV Q4H PRN PRN Reason: Nausea And Vomiting Oxycodone/Acetaminophen (Percocet 5/325) 1 tab PO Q6H PRN PRN Reason: Pain, Moderate (4-6) Last Admin: 09/03/18 10:09 Dose: 1 tab Documented by: Sodium Chloride (Sodium Chloride Flush Syringe 10 Ml) 10 ml IV BID [facility] Last Admin: 09/03/18 09:58 Dose: 10 ml Documented by: Sodium Chloride (Sodium Chloride Flush Syringe 10 Ml) 10 ml IV PRN PRN PRN Reason: LINE FLUSH Zolpidem Tartrate (Ambien) 5 mg PO QHS PRN PRN Reason: Sleep Last Admin: 09/02/18 22:09 Dose: 5 mg Documented by: Review of Systems All systems: negative Physical Examination Vital signs: Vital Signs Pulse Resp BP Pulse Ox 130 H 15 120/77 100 08/30/18 20:01 08/30/18 20:01 08/30/18 20:01 03/02/19 20:01 General appearance: alert, appears uncomfortable, other (Morbidley Obese and having mild shortness of breath at rest.) Eyes: non-icteric ENT: oropharynx moist Neck: supple, no JVD Ascultation: Bilateral: wheezes, rhonchi Cardiovascular: regular rate and rhythm Gastrointestinal: normoactive bowel sounds, soft, non-tender Integumentary: erythema Extremities: no cyanosis, edema Musculoskeletal: no deformities Gait: other (Unable to assess at this time.) normal mental status, non-focal exam, pupils equal and round, CN II-XII normal anxious Results - Laboratory Findings CBC and BMP: 09/03/18 06:20 09/03/18 06:20 Abnormal lab findings: Abnormal Labs 08/30/18 08/30/18 08/31/18 20:45 20:45 04:07 WBC 12.1 H RBC 5.55 H Hct 45.1 H MCH 26 L RDW 21.5 H Seg Neutrophils % 78.8 H Seg Neutrophils # 9.6 H Sodium 135 L Potassium Chloride Carbon Dioxide BUN 22 H Creatinine Glucose 144 H POC Glucose Calcium Alkaline Phosphatase 138 H Total Creatine Kinase 29 L CK-MB (CK-2) Rel Index 8.2 H Albumin 3.4 L 08/31/18 08/31/18 08/31/18 04:07 04:07 08:01 WBC RBC 5.36 H Hct 43.7 H MCH 26 L RDW 21.2 H Seg Neutrophils % 73.9 H Seg Neutrophils # Sodium 135 L Potassium Chloride 97.6 L Carbon Dioxide BUN 19 H Creatinine 0.6 L Glucose 112 H POC Glucose 109 H Calcium 8.3 L Alkaline Phosphatase Total Creatine Kinase CK-MB (CK-2) Rel Index Albumin 08/31/18 08/31/18 08/31/18 10:43 12:47 16:19 WBC RBC Hct MCH RDW Seg Neutrophils % Seg Neutrophils # Sodium Potassium Chloride Carbon Dioxide BUN Creatinine Glucose POC Glucose 223 H 189 H Calcium Alkaline Phosphatase Total Creatine Kinase CK-MB (CK-2) Rel Index 6.4 H Albumin 08/31/18 09/01/18 09/01/18 21:07 08:07 11:27 WBC RBC Hct MCH RDW Seg Neutrophils % Seg Neutrophils # Sodium Potassium Chloride Carbon Dioxide BUN Creatinine Glucose POC Glucose 217 H 204 H 257 H Calcium Alkaline Phosphatase Total Creatine Kinase CK-MB (CK-2) Rel Index Albumin 09/01/18 09/01/18 09/02/18 17:23 21:17 06:18 WBC RBC 5.29 H Hct 43.5 H MCH 26 L RDW 20.6 H Seg Neutrophils % Seg Neutrophils # Sodium Potassium Chloride Carbon Dioxide BUN Creatinine Glucose POC Glucose 224 H 224 H Calcium Alkaline Phosphatase Total Creatine Kinase CK-MB (CK-2) Rel Index Albumin 09/02/18 09/02/18 09/02/18 06:18 07:48 11:44 WBC RBC Hct MCH RDW Seg Neutrophils % Seg Neutrophils # Sodium 135 L Potassium 5.3 H Chloride Carbon Dioxide 19 L BUN 35 H Creatinine Glucose 212 H POC Glucose 174 H 242 H Calcium 8.0 L Alkaline Phosphatase Total Creatine Kinase CK-MB (CK-2) Rel Index Albumin 09/02/18 09/02/18 09/03/18 17:19 21:32 06:20 WBC RBC 5.44 H Hct 44.6 H MCH 25 L RDW 21.2 H Seg Neutrophils % Seg Neutrophils # Sodium Potassium Chloride Carbon Dioxide BUN Creatinine Glucose POC Glucose 185 H 228 H Calcium Alkaline Phosphatase Total Creatine Kinase CK-MB (CK-2) Rel Index Albumin 09/03/18 09/03/18 09/03/18 06:20 07:54 12:21 WBC RBC Hct MCH RDW Seg Neutrophils % Seg Neutrophils # Sodium 136 L Potassium Chloride Carbon Dioxide 21 L BUN 40 H Creatinine Glucose 236 H POC Glucose 202 H 279 H Calcium 7.9 L Alkaline Phosphatase Total Creatine Kinase CK-MB (CK-2) Rel Index Albumin - Diagnostic Findings Chest x-ray: report reviewed (Diffuse prominence of interstitial markings.), image reviewed Additional studies: aNGIO ct OF CHEST 08/30/18 IMPRESSION: There is no pulmonary embolism. There is calcified plaque in the thoracic aorta. There is no aneurysm or dissection.. There is right hilar adenopathy.. This is unchanged from the prior study. There is moderate COPD.. Bilateral pulmonary nodules are unchanged from prior examination. There is fluid in the right major fissure. There are bilateral pleural effusions slightly smaller than prior study. There are no acute infiltrates. There is no pneumothorax.. There is a large amount of ascites. This is similar to prior study.. Assessment and Plan 58-year-old woman Morbidly Obese with a history of hypertension, diabetes, COPD, coronary artery disease, CHF comes emergency room with complaints of swelling of legs. Also complaining of PND, orthopnea, cough productive of green phlegm. Stated that her abdomen has been red over the last 1 month, she was given Gold bonds powder for treatment. Patient has history of smoking 1/2 a pack ad ay x 45 years.Counselled to stop smoking. Patient has history of COPD and on home O2. Denies alcohol or drug abuse. 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 She has four children. Patient presently on 2 litres O2.O2 saturation 97%. - Patient Problems (1) Acute respiratory failure Current Visit: No Status: Acute Plan to address problem: O2 2 litres via nasal canula. Albuterol/atrovent aerosol treatments q 6 hours. Continue I/V solumedrol. Continue Levaquin Patient is on Apixaban. (2) CAD (coronary artery disease) of artery bypass graft Current Visit: No Status: Acute Plan to address problem: Management as per cardiology. (3) Congestive cardiomyopathy Current Visit: No Status: Acute Plan to address problem: Management as per cardiology. (4) CHF (congestive heart failure) Current Visit: No Status: Chronic Qualifiers: Heart failure type: unspecified Heart failure chronicity: acute on chronic Qualified Code(s): I50.9 - Heart failure, unspecified Plan to address problem: Management as per cardiology. (5) COPD exacerbation Current Visit: No Status: Chronic Plan to address problem: O2 2 litres via nasal canula. Albuterol/atrovent aerosol treatments q 6 hours. Continue I/V solumedrol. Continue Levaquin Patient is on Apixaban. PFTs as out patient.
--- NOTE | 2018-09-03 14:10 | Progress Note ---
Assessment and Plan Assessment and plan: Patient is a 58 yo woman with a history of hypertension, type 2 DM, chronic hypoxic respiratory failure on home O2 due to COPD, cor pulmonale, CHF with EF 30-35%, aflutter, pulmonary hypertension, ICM, CAD s/p CABG in 2013 who presents [facility] with son, productive cough and abd redness with pains. She was just discharged from here on08/11/[address] Knox. /Acute on chronic combine heart failure: Cardiology is following and provided additional history not in our EMR, diuresis /Hyperkalemia resolved gave kayexalate saturday, repeat bmp /Aute COPD exacerbation: treat with nebs, iv steroids, empiric abx /Acute on chronic hypoxic respiratory failure, poa: treat the above /Abdominal cellulitis with bilateral groin diaper rash: topical ointment and abx /History of Coronary artery disease: treat with asa and statin /Aflutter with RVR: restart A/C, Cardiology following /Hypertension: low salt cardiac diet /Diabetes mellitus type 2: ssi, ada diet hopefully d/c in 1-2 days, once ok by Pulmonology History Interval history: Patient was seen and examined. Follow-up on current diagnosis chf and copd. Overnight uneventful. Patient denies any chest pain, shortness breath, nausea/vomiting or severe headaches. Imaging, nursing note, chart, labs and old chart reviewed. Discussed with patient. Hospitalist Physical - Physical exam Narrative exam: Gen: unkempt morbid obese, chronic disable, bmi 50.6 WDWN, NAD, Awake, Alert, Orientated HEENT: NCAT, EOMI, PERRL, OP Clear Neck: supple, no adenopathy, no thyromegaly, + JVD CVS/Heart: regular irregular normal S1S2, pulses present bilaterally Chest/Lungs: diminished bs bilateral with rhonchi Symmetrical chest expansion, good air entry bilaterally GI/Abdomen: soft, NTND, good bowel sounds, no guarding or rebound /Bladder: no suprapubic tenderness, no CVA or paraspinal tenderness Extermity/Skin: + ble edema, obvious red small raised rash lower abdomen under pannus and bilateral groin area MSK: FROM x 4 Neuro: CN 2-12 grossly intact, no new focal deficits Psych: calm - Constitutional Vitals: Temp Pulse Resp BP Pulse Ox 97.9 F 98 H 20 106/69 97 09/03/18 12:21 09/03/18 12:20 09/03/18 12:20 09/03/18 12:20 09/03/18 12:20 Results - Labs CBC & Chem 7: 09/03/18 06:20 09/03/18 06:20 Labs: Laboratory Last Values WBC 8.2 K/mm3 (4.5-11.0) 09/03/18 06:20 RBC 5.44 M/mm3 (3.65-5.03) H 09/03/18 06:20 Hgb 13.6 gm/dl (10.1-14.3) 09/03/18 06:20 Hct 44.6 % (30.3-42.9) H 09/03/18 06:20 MCV 82 fl (79-97) 09/03/18 06:20 MCH 25 pg (28-32) L 09/03/18 06:20 MCHC 31 % (30-34) 09/03/18 06:20 RDW 21.2 % (13.2-15.2) H 09/03/18 06:20 Plt Count 193 K/mm3 (140-440) 09/03/18 06:20 Lymph % (Auto) 17.2 % (13.4-35.0) 08/31/18 04:07 [place] % (Auto) 6.5 % (0.0-7.3) 08/31/18 04:07 Eos % (Auto) 1.5 % (0.0-4.3) 08/31/18 04:07 Baso % (Auto) 0.9 % (0.0-1.8) 08/31/18 04:07 Lymph # 1.8 K/mm3 (1.2-5.4) 08/31/18 04:07 [place] # 0.7 K/mm3 (0.0-0.8) 08/31/18 04:07 Eos # 0.1 K/mm3 (0.0-0.4) 08/31/18 04:07 Baso # 0.1 K/mm3 (0.0-0.1) 08/31/18 04:07 Seg Neutrophils % 73.9 % (40.0-70.0) H 08/31/18 04:07 Seg Neutrophils # 7.6 K/mm3 (1.8-7.7) 08/31/18 04:07 Sodium 136 mmol/L (137-145) L 09/03/18 06:20 Potassium 4.4 mmol/L (3.6-5.0) 09/03/18 06:20 Chloride 98.8 mmol/L (98-107) 09/03/18 06:20 Carbon Dioxide 21 mmol/L (22-30) L 09/03/18 06:20 Anion Gap 21 mmol/L 09/03/18 06:20 BUN 40 mg/dL (7-17) H 09/03/18 06:20 Creatinine 0.7 mg/dL (0.7-1.2) 09/03/18 06:20 Estimated GFR > 60 ml/min 09/03/18 06:20 BUN/Creatinine Ratio 57 % 09/03/18 06:20 Glucose 236 mg/dL (65-100) H 09/03/18 06:20 POC Glucose 279 (70-105) H 09/03/18 12:21 Lactic Acid 1.50 mmol/L (0.7-2.0) 08/30/18 20:45 Calcium 7.9 mg/dL (8.4-10.2) L 09/03/18 06:20 Total Bilirubin 0.70 mg/dL (0.1-1.2) 08/30/18 20:45 AST 14 units/L (5-40) 08/30/18 20:45 ALT 10 units/L (7-56) 08/30/18 20:45 Alkaline Phosphatase 138 units/L (35-129) H 08/30/18 20:45 Total Creatine Kinase 34 units/L (30-135) 08/31/18 10:43 CK-MB (CK-2) 2.2 ng/mL (0.0-4.0) 08/31/18 10:43 CK-MB (CK-2) Rel Index 6.4 (0-4) H 08/31/18 10:43 Troponin T < 0.010 ng/mL (0.00-0.029) 08/31/18 10:43 Total Protein 6.3 g/dL (6.3-8.2) 08/30/18 20:45 Albumin 3.4 g/dL (3.9-5) L 08/30/18 20:45 Albumin/Globulin Ratio 1.2 % 08/30/18 20:45 Urine Color Yellow (Yellow) 08/30/18 23:36 Urine Turbidity Clear (Clear) 08/30/18 23:36 Urine pH 5.0 (5.0-7.0) 08/30/18 23:36 Ur Specific [place] 1.027 (1.003-1.030) 08/30/18 23:36 Urine Protein <15 mg/dl mg/dL (Negative) 08/30/18 23:36 Urine Glucose (UA) Neg mg/dL (Negative) 08/30/18 23:36 Urine Ketones Neg mg/dL (Negative) 08/30/18 23:36 Urine Blood Neg (Negative) 08/30/18 23:36 Urine Nitrite Neg (Negative) 08/30/18 23:36 Urine Bilirubin Neg (Negative) 08/30/18 23:36 Urine Urobilinogen 4.0 mg/dL (<2.0) 08/30/18 23:36 Ur Leukocyte Esterase Neg (Negative) 08/30/18 23:36 Urine WBC (Auto) < 1.0 /HPF (0.0-6.0) 08/30/18 23:36 Urine RBC (Auto) 1.0 /HPF (0.0-6.0) 08/30/18 23:36 U Epithel Cells (Auto) 12.0 /HPF (0-13.0) 08/30/18 23:36 Urine Bacteria (Auto) 1+ /HPF (Negative) 08/30/18 23:36 Urine Mucus Few /HPF 08/30/18 23:36 Blood Type A POSITIVE 08/30/18 20:45 Antibody Screen Negative 08/30/18 20:45
[2018-09-03] MEDS: AMBIEN PO PRN (21:56)
[2018-09-03] MEDS: XANAX PO PRN (21:57)
[2018-09-04] MEDS: SOLU-Medrol IV SCH ×4 (00:35→18:15)
[2018-09-04] MEDS: PERCOCET 5/325 PO PRN ×4 (01:08→21:44)
[2018-09-04] MEDS: LASIX IV SCH ×2 (06:32→18:15)
[2018-09-04] MEDS: NEURONTIN PO SCH ×3 (08:14→20:00)
[2018-09-04] MEDS: HumaLOG SUB-Q SCH ×4 (08:30→22:30)
[2018-09-04] MEDS: DUONEB *Not for PRN Use IH SCH ×3 (08:42→20:30)
[2018-09-04 09:44] LABS: Hematocrit 41.6 % (30.3-42.9); Hemoglobin 13.1 gm/dl (10.1-14.3); Mean Corpuscular HGB Conc 32 % (30-34); Mean Corpuscular Volume 81 fl (79-97); Platelet Count 208 K/mm3 (140-440); Red Blood Count 5.12 M/mm3 (3.65-5.03)
--- NOTE | 2018-09-04 09:50 | Progress Note ---
Assessment and Plan Acute on chronic respiratory failure Multifactorial including right heart failure, COPD and tobacco abuse Hyperkalemia Persistent Atrial fib/flutter, rate control with metoprolol on eliquis for oral anticoagulation therapy Ischemic cardiomyopathy with EF 30-35% CAD s/p 3v CABG in 2014 Cor Pulmonale COPD Severe pulmonary hypertension Htn DM PAD s/p TMA Chronic non-compliance with medical therapy and medical follow up Recommend: Fluid/sodium restriction. Continue medical therapy for persistent Afib/flutter, coronary artery disease and ischemic cardiomyopathy. Subjective Date of service: 09/04/18 Interval history: Patient reports her breathing is better. Aflutter with a well controlled ventricular rate on telemetry. Objective Vital Signs Temp Pulse Pulse Pulse Pulse Resp Resp 09/04/18 08:40 09/04/18 07:21 97.3 F L 20 09/04/18 07:19 20 09/04/18 01:05 97.2 F L 20 09/04/18 00:00 86 20 09/03/18 22:11 98.6 F 20 09/03/18 22:00 123 H 115 H 18 09/03/18 21:58 110 H 09/03/18 20:00 105 H 18 09/03/18 19:50 98 H 16 09/03/18 19:00 98.6 F 112 H 20 09/03/18 14:00 87 88 16 09/03/18 12:21 97.9 F 09/03/18 12:20 98 H 20 09/03/18 10:44 115 H 22 09/03/18 10:38 97.9 F 09/03/18 10:00 101 H 100 H 18 Resp BP BP Pulse Ox 09/04/18 08:40 96 09/04/18 07:21 09/04/18 07:19 117/69 09/04/18 01:05 101/60 09/04/18 00:00 101/60 97 09/03/18 22:11 152/94 09/03/18 22:00 98 09/03/18 21:58 152/94 09/03/18 20:00 96 09/03/18 19:50 09/03/18 19:00 152/94 97 09/03/18 14:00 16 09/03/18 12:21 09/03/18 12:20 106/69 97 09/03/18 10:44 117/64 99 09/03/18 10:38 09/03/18 10:00 98 - Physical Examination General: No Apparent Distress HEENT: Positive: PERRL Neck: Positive: trachea midline Cardiac: Positive: irregularly irregular Lungs: Positive: Decreased Breath Sounds, Wheezes Neuro: Positive: Grossly Intact Extremities: Present: +1 Edema - Labs and Meds CBC 09/04/18 Range/Units 08:59 WBC 6.4 (4.5-11.0) K/mm3 RBC 5.12 H (3.65-5.03) M/mm3 Hgb 13.1 (10.1-14.3) gm/dl Hct 41.6 (30.3-42.9) % Plt Count 208 (140-440) K/mm3
[2018-09-04 10:08] LABS: BUN/Creatinine Ratio 70; Blood Urea Nitrogen 42 mg/dL (7-17); Hemolysis Index 197
[2018-09-04] MEDS: ELIQUIS PO SCH ×2 (10:37→21:43)
[2018-09-04] MEDS: MYCOSTATIN TP SCH ×3 (10:37→21:48)
[2018-09-04] MEDS: LEVAQUIN PO SCH (10:37)
[2018-09-04] MEDS: BABY ASPIRIN PO SCH (10:38)
[2018-09-04] MEDS: ZESTRIL PO SCH (10:38)
[2018-09-04] MEDS: LOPRESSOR PO SCH ×2 (10:39→21:43)
[2018-09-04] MEDS: SODIUM CHLORIDE FLUSH SYRINGE 10 ML IV SCH ×2 (10:41→21:45)
--- NOTE | 2018-09-04 14:14 | Progress Note ---
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 re-evaluate in am & prn Subjective Date of service: 09/04/18 Principal diagnosis: AE-COPD; Ac on ch hypoxemic Resp failure; Ac CHF exacerbation Interval history: Patient is seen today for: Acute on chronic combined heart failure; Hyperkalemia; Acute COPD exacerbation; Acute on chronic hypoxic respiratory failure (POA) Seen and examined at bedside; 24hour events reviewed; nursing and respiratory care staff consulted; no adverse overnight events reported to me; resting peacefully in bed; denies acute chest pains or palpitations; still weak; No N/V/F/C; remains on supplemental oxygen Objective Vital Signs - 12hr 09/04/18 09/04/18 09/04/18 07:19 07:21 08:40 Temperature 97.3 F L Pulse Rate Respiratory 20 20 Rate Blood Pressure 117/69 O2 Sat by Pulse 96 Oximetry 09/04/18 09/04/18 10:38 10:39 Temperature Pulse Rate 112 H 112 H Respiratory Rate Blood Pressure 117/70 117/70 O2 Sat by Pulse Oximetry Constitutional: alert, appears uncomfortable, other (Morbidly Obese and having mild shortness of breath at rest.) Eyes: non-icteric ENT: oropharynx moist, other (mallampati 34) Neck: supple, no JVD Effort: mildly labored Ascultation: Bilateral: diminished breath sounds, rhonchi, other (proloongrd exp phase) Percussion: Bilateral: not dull Cardiovascular: irregular rhythm Gastrointestinal: normoactive bowel sounds, soft, non-tender, non-distended Integumentary: erythema Extremities: no cyanosis, pink and warm, pulses normal, edema Neurologic: normal mental status, non-focal exam, pupils equal and round, CN II- XII normal, motor strength normal and Psychiatric: mood appropriate, affect normal CBC and BMP: 09/04/18 08:59 09/04/18 08:59 Abnormal lab findings: Abnormal Labs 08/30/18 08/30/18 08/31/18 20:45 20:45 04:07 WBC 12.1 H RBC 5.55 H Hct 45.1 H MCH 26 L RDW 21.5 H Seg Neutrophils % 78.8 H Seg Neutrophils # 9.6 H Sodium 135 L Potassium Chloride Carbon Dioxide BUN 22 H Creatinine Glucose 144 H POC Glucose Calcium Alkaline Phosphatase 138 H Total Creatine Kinase 29 L CK-MB (CK-2) Rel Index 8.2 H Albumin 3.4 L 08/31/18 08/31/18 08/31/18 04:07 04:07 08:01 WBC RBC 5.36 H Hct 43.7 H MCH 26 L RDW 21.2 H Seg Neutrophils % 73.9 H Seg Neutrophils # Sodium 135 L Potassium Chloride 97.6 L Carbon Dioxide BUN 19 H Creatinine 0.6 L Glucose 112 H POC Glucose 109 H Calcium 8.3 L Alkaline Phosphatase Total Creatine Kinase CK-MB (CK-2) Rel Index Albumin 08/31/18 08/31/18 08/31/18 10:43 12:47 16:19 WBC RBC Hct MCH RDW Seg Neutrophils % Seg Neutrophils # Sodium Potassium Chloride Carbon Dioxide BUN Creatinine Glucose POC Glucose 223 H 189 H Calcium Alkaline Phosphatase Total Creatine Kinase CK-MB (CK-2) Rel Index 6.4 H Albumin 08/31/18 09/01/18 09/01/18 21:07 08:07 11:27 WBC RBC Hct MCH RDW Seg Neutrophils % Seg Neutrophils # Sodium Potassium Chloride Carbon Dioxide BUN Creatinine Glucose POC Glucose 217 H 204 H 257 H Calcium Alkaline Phosphatase Total Creatine Kinase CK-MB (CK-2) Rel Index Albumin 09/01/18 09/01/18 09/02/18 17:23 21:17 06:18 WBC RBC 5.29 H Hct 43.5 H MCH 26 L RDW 20.6 H Seg Neutrophils % Seg Neutrophils # Sodium Potassium Chloride Carbon Dioxide BUN Creatinine Glucose POC Glucose 224 H 224 H Calcium Alkaline Phosphatase Total Creatine Kinase CK-MB (CK-2) Rel Index Albumin 09/02/18 09/02/18 09/02/18 06:18 07:48 11:44 WBC RBC Hct MCH RDW Seg Neutrophils % Seg Neutrophils # Sodium 135 L Potassium 5.3 H Chloride Carbon Dioxide 19 L BUN 35 H Creatinine Glucose 212 H POC Glucose 174 H 242 H Calcium 8.0 L Alkaline Phosphatase Total Creatine Kinase CK-MB (CK-2) Rel Index Albumin 09/02/18 09/02/18 09/03/18 17:19 21:32 06:20 WBC RBC 5.44 H Hct 44.6 H MCH 25 L RDW 21.2 H Seg Neutrophils % Seg Neutrophils # Sodium Potassium Chloride Carbon Dioxide BUN Creatinine Glucose POC Glucose 185 H 228 H Calcium Alkaline Phosphatase Total Creatine Kinase CK-MB (CK-2) Rel Index Albumin 09/03/18 09/03/18 09/03/18 06:20 07:54 12:21 WBC RBC Hct MCH RDW Seg Neutrophils % Seg Neutrophils # Sodium 136 L Potassium Chloride Carbon Dioxide 21 L BUN 40 H Creatinine Glucose 236 H POC Glucose 202 H 279 H Calcium 7.9 L Alkaline Phosphatase Total Creatine Kinase CK-MB (CK-2) Rel Index Albumin 09/03/18 09/03/18 09/04/18 17:44 22:10 07:49 WBC RBC Hct MCH RDW Seg Neutrophils % Seg Neutrophils # Sodium Potassium Chloride Carbon Dioxide BUN Creatinine Glucose POC Glucose 263 H 266 H 313 H Calcium Alkaline Phosphatase Total Creatine Kinase CK-MB (CK-2) Rel Index Albumin 09/04/18 09/04/18 09/04/18 08:59 08:59 12:15 WBC RBC 5.12 H Hct MCH 26 L RDW 21.0 H Seg Neutrophils % Seg Neutrophils # Sodium 136 L Potassium Chloride 96.1 L Carbon Dioxide BUN 42 H Creatinine 0.6 L Glucose 402 H POC Glucose 342 H Calcium 8.0 L Alkaline Phosphatase Total Creatine Kinase CK-MB (CK-2) Rel Index Albumin Chest x-ray: image reviewed (Pulmonary edema) CT scan - chest: image reviewed (no P.E.; pulmonary edema; upper xone predominant paraseptal emphysema) Allied health notes reviewed: nursing
--- NOTE | 2018-09-04 17:50 | Progress Note ---
Assessment and Plan Assessment and Plan Assessment and plan: Patient is a 58 yo woman with a history of hypertension, type 2 DM, chronic hypoxic respiratory failure on home O2 due to COPD, cor pulmonale, CHF with EF 30-35%, aflutter, pulmonary hypertension, ICM, CAD s/p CABG in 2013 who presents to [facility] ED with son, productive cough and abd redness with pains. She was just discharged from here on08/11/[address] Knox. /Acute on chronic combine heart failure: Cardiology is following and provided additional history not in our EMR, diuresis /Hyperkalemia resolved gave kayexalate saturday, repeat bmp /Aute COPD exacerbation: treat with nebs, iv steroids, empiric abx /Acute on chronic hypoxic respiratory failure, poa: treat the above /Abdominal cellulitis with bilateral groin diaper rash: topical ointment and abx /History of Coronary artery disease: treat with asa and statin /Aflutter with RVR: restart A/C, Cardiology following /Hypertension: low salt cardiac diet /Diabetes mellitus type 2: ssi, ada diet hopefully d/c in 1-2 days, Subjective Date of service: 09/04/18 Principal diagnosis: Copd exacerbation Interval history: Doing better Objective - Constitutional Vitals: Vital Signs - 12hr 09/04/18 09/04/18 09/04/18 07:19 07:21 08:40 Temperature 97.3 F L Pulse Rate Respiratory 20 20 Rate Blood Pressure 117/69 O2 Sat by Pulse 96 Oximetry 09/04/18 09/04/18 09/04/18 10:00 10:38 10:39 Temperature Pulse Rate 112 H 112 H Respiratory 20 Rate Blood Pressure 117/70 117/70 O2 Sat by Pulse Oximetry General appearance: Present: no acute distress, well-nourished - EENT Eyes: PERRL, EOM intact ENT: hearing intact, clear oral mucosa Ears: bilateral: normal - Neck Neck: supple, normal ROM - Respiratory Respiratory effort: normal Respiratory: bilateral: CTA - Breasts Breasts: normal - Cardiovascular Heart rate: 78 Rhythm: regular Heart Sounds: Present: S1 & S2. Absent: gallop, rub Extremities: no ischemia, pulses intact, No edema, normal color, Full ROM - Gastrointestinal General gastrointestinal: Present: soft, non-tender, non-distended, normal bowel sounds Rectal Exam: deferred - Genitourinary Female genitourinary: normal - Integumentary Integumentary: clear, warm, dry - Musculoskeletal Musculoskeletal: 1, strength equal bilaterally - Neurologic Neurologic: moves all extremities - Psychiatric Psychiatric: memory intact, appropriate mood/affect, intact judgment & insight - Allied health notes Allied health notes reviewed: nursing, case management - Labs CBC & Chem 7: 09/04/18 08:59 09/04/18 08:59 Labs: Abnormal lab results 09/03/18 09/04/18 09/04/18 Range/Units 22:10 07:49 08:59 RBC 5.12 H (3.65-5.03) M/mm3 MCH 26 L (28-32) pg RDW 21.0 H (13.2-15.2) % Sodium (137-145) mmol/L Chloride (98-107) mmol/L BUN (7-17) mg/dL Creatinine (0.7-1.2) mg/dL Glucose (65-100) mg/dL POC Glucose 266 H 313 H (70-105) Calcium (8.4-10.2) mg/dL 09/04/18 09/04/18 09/04/18 Range/Units 08:59 12:15 17:09 RBC (3.65-5.03) M/mm3 MCH (28-32) pg RDW (13.2-15.2) % Sodium 136 L (137-145) mmol/L Chloride 96.1 L (98-107) mmol/L BUN 42 H (7-17) mg/dL Creatinine 0.6 L (0.7-1.2) mg/dL Glucose 402 H (65-100) mg/dL POC Glucose 342 H 165 H (70-105) Calcium 8.0 L (8.4-10.2) mg/dL
[2018-09-04] MEDS: AMBIEN PO PRN (21:43)
[2018-09-04] MEDS: XANAX PO PRN (21:43)
[2018-09-05] MEDS: SOLU-Medrol IV SCH ×3 (00:45→15:07)
[2018-09-05] MEDS: PERCOCET 5/325 PO PRN ×4 (04:22→20:58)
[2018-09-05] MEDS: LASIX IV SCH ×2 (06:15→17:25)
[2018-09-05] MEDS: DUONEB *Not for PRN Use IH SCH ×3 (09:01→20:34)
[2018-09-05] MEDS: HumaLOG SUB-Q SCH ×3 (09:49→17:26)
--- NOTE | 2018-09-05 10:37 | Progress Note ---
Assessment and Plan Acute on chronic respiratory failure Multifactorial including right heart failure, COPD and tobacco abuse Hyperkalemia Persistent Atrial fib/flutter, rate control with metoprolol on eliquis for oral anticoagulation therapy Ischemic cardiomyopathy with EF 30-35% CAD s/p 3v CABG in 2014 Cor Pulmonale COPD Severe pulmonary hypertension Htn DM PAD s/p TMA Chronic non-compliance with medical therapy and medical follow up Recommend: Advised smoking cessation. Fluid/sodium restriction. Continue medical therapy for persistent Afib/flutter, coronary artery disease and ischemic cardiomyopathy. Subjective Date of service: 09/05/18 Principal diagnosis: Copd exacerbation Interval history: Patient has no complaints. Objective Vital Signs Temp Pulse Pulse Pulse Resp Resp BP 09/05/18 08:34 98.2 F 124 H 20 115/77 09/05/18 05:35 97.5 F L 104 H 22 106/66 09/05/18 00:45 98 H 20 104/70 09/04/18 22:00 132 H 125 H 18 09/04/18 21:29 97.8 F 134 H 22 106/62 09/04/18 20:43 64 20 09/04/18 20:35 09/04/18 20:30 57 L 20 09/04/18 17:58 104 H 114/87 09/04/18 16:00 101 H 09/04/18 11:02 97.8 F 20 96/67 09/04/18 10:39 112 H 117/70 09/04/18 10:38 112 H 117/70 Pulse Ox 09/05/18 08:34 92 09/05/18 05:35 88 09/05/18 00:45 99 09/04/18 22:00 09/04/18 21:29 92 09/04/18 20:43 09/04/18 20:35 97 09/04/18 20:30 09/04/18 17:58 96 09/04/18 16:00 09/04/18 11:02 09/04/18 10:39 09/04/18 10:38 - Physical Examination General: No Apparent Distress HEENT: Positive: PERRL Neck: Positive: trachea midline Cardiac: Positive: irregularly irregular Lungs: Positive: Decreased Breath Sounds, Wheezes Neuro: Positive: Grossly Intact Abdomen: Positive: Soft Extremities: Present: +1 Edema
[2018-09-05] MEDS: LOPRESSOR PO SCH ×2 (10:40→22:30)
[2018-09-05] MEDS: LEVAQUIN PO SCH (10:40)
[2018-09-05] MEDS: ZESTRIL PO SCH (10:40)
[2018-09-05] MEDS: ELIQUIS PO SCH ×2 (10:41→22:29)
[2018-09-05] MEDS: BABY ASPIRIN PO SCH (10:42)
[2018-09-05] MEDS: SODIUM CHLORIDE FLUSH SYRINGE 10 ML IV SCH ×2 (10:43→22:29)
[2018-09-05] MEDS: NEURONTIN PO SCH ×3 (10:47→20:58)
[2018-09-05] MEDS: MYCOSTATIN TP SCH ×3 (10:48→20:58)
--- NOTE | 2018-09-05 13:04 | Progress Note ---
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 re-evaluate in am & prn Subjective Date of service: 09/05/18 Principal diagnosis: AE-COPD; Ac on ch hypoxemic Resp failure; Ac CHF exacerbat ion Interval history: Patient is seen today for: Acute on chronic combined heart failure; Hyperkalemia; Acute COPD exacerbation; Acute on chronic hypoxic respiratory failure (POA) Seen and examined at bedside; 24hour events reviewed; nursing and respiratory care staff consulted; no adverse overnight events reported to me; resting p eacefully in bed; remains on supplemental oxygen; denies acute chest pains or palpitations; still SOB but overall feels better; + very good diuresis but complains of some perineal erythema / maceration Objective Vital Signs - 12hr 09/05/18 09/05/18 09/05/18 05:35 08:34 09:01 Temperature 97.5 F L 98.2 F Pulse Rate 104 H 124 H Pulse Rate [ 129 H Anterior Bilateral Throughout] Respiratory 22 20 Rate Respiratory 20 Rate [Anterior Bilateral Throughout] Blood Pressure 106/66 115/77 O2 Sat by Pulse 88 92 97 Oximetry 09/05/18 09/05/18 09:11 12:13 Temperature 98.2 F Pulse Rate Pulse Rate [ 125 H Anterior Bilateral Throughout] Respiratory 20 Rate Respiratory 20 Rate [Anterior Bilateral Throughout] Blood Pressure 134/98 O2 Sat by Pulse Oximetry Constitutional: no acute distress, alert, other (Morbidly Obese and having mild shortness of breath at rest.) Eyes: non-icteric ENT: oropharynx moist, other (mallampati 3) Neck: supple, no JVD Effort: mildly labored Ascultation: Bilateral: diminished breath sounds, rhonchi, other (proloongrd exp phase) Percussion: Bilateral: not dull Cardiovascular: irregular rhythm Gastrointestinal: normoactive bowel sounds, soft, non-tender, non-distended Integumentary: erythema Extremities: no cyanosis, pink and warm, pulses normal, edema (2++) Neurologic: normal mental status, non-focal exam, pupils equal and round, CN II- XII normal, motor strength normal and Psychiatric: mood appropriate, affect normal CBC and BMP: 09/04/18 08:59 09/04/18 08:59 Abnormal lab findings: Abnormal Labs 08/30/18 08/30/18 08/31/18 20:45 20:45 04:07 WBC 12.1 H RBC 5.55 H Hct 45.1 H MCH 26 L RDW 21.5 H Seg Neutrophils % 78.8 H Seg Neutrophils # 9.6 H Sodium 135 L Potassium Chloride Carbon Dioxide BUN 22 H Creatinine Glucose 144 H POC Glucose Calcium Alkaline Phosphatase 138 H Total Creatine Kinase 29 L CK-MB (CK-2) Rel Index 8.2 H Albumin 3.4 L 08/31/18 08/31/18 08/31/18 04:07 04:07 08:01 WBC RBC 5.36 H Hct 43.7 H MCH 26 L RDW 21.2 H Seg Neutrophils % 73.9 H Seg Neutrophils # Sodium 135 L Potassium Chloride 97.6 L Carbon Dioxide BUN 19 H Creatinine 0.6 L Glucose 112 H POC Glucose 109 H Calcium 8.3 L Alkaline Phosphatase Total Creatine Kinase CK-MB (CK-2) Rel Index Albumin 08/31/18 08/31/18 08/31/18 10:43 12:47 16:19 WBC RBC Hct MCH RDW Seg Neutrophils % Seg Neutrophils # Sodium Potassium Chloride Carbon Dioxide BUN Creatinine Glucose POC Glucose 223 H 189 H Calcium Alkaline Phosphatase Total Creatine Kinase CK-MB (CK-2) Rel Index 6.4 H Albumin 08/31/18 09/01/18 09/01/18 21:07 08:07 11:27 WBC RBC Hct MCH RDW Seg Neutrophils % Seg Neutrophils # Sodium Potassium Chloride Carbon Dioxide BUN Creatinine Glucose POC Glucose 217 H 204 H 257 H Calcium Alkaline Phosphatase Total Creatine Kinase CK-MB (CK-2) Rel Index Albumin 09/01/18 09/01/18 09/02/18 17:23 21:17 06:18 WBC RBC 5.29 H Hct 43.5 H MCH 26 L RDW 20.6 H Seg Neutrophils % Seg Neutrophils # Sodium Potassium Chloride Carbon Dioxide BUN Creatinine Glucose POC Glucose 224 H 224 H Calcium Alkaline Phosphatase Total Creatine Kinase CK-MB (CK-2) Rel Index Albumin 09/02/18 09/02/18 09/02/18 06:18 07:48 11:44 WBC RBC Hct MCH RDW Seg Neutrophils % Seg Neutrophils # Sodium 135 L Potassium 5.3 H Chloride Carbon Dioxide 19 L BUN 35 H Creatinine Glucose 212 H POC Glucose 174 H 242 H Calcium 8.0 L Alkaline Phosphatase Total Creatine Kinase CK-MB (CK-2) Rel Index Albumin 09/02/18 09/02/18 09/03/18 17:19 21:32 06:20 WBC RBC 5.44 H Hct 44.6 H MCH 25 L RDW 21.2 H Seg Neutrophils % Seg Neutrophils # Sodium Potassium Chloride Carbon Dioxide BUN Creatinine Glucose POC Glucose 185 H 228 H Calcium Alkaline Phosphatase Total Creatine Kinase CK-MB (CK-2) Rel Index Albumin 09/03/18 09/03/18 09/03/18 06:20 07:54 12:21 WBC RBC Hct MCH RDW Seg Neutrophils % Seg Neutrophils # Sodium 136 L Potassium Chloride Carbon Dioxide 21 L BUN 40 H Creatinine Glucose 236 H POC Glucose 202 H 279 H Calcium 7.9 L Alkaline Phosphatase Total Creatine Kinase CK-MB (CK-2) Rel Index Albumin 09/03/18 09/03/18 09/04/18 17:44 22:10 07:49 WBC RBC Hct MCH RDW Seg Neutrophils % Seg Neutrophils # Sodium Potassium Chloride Carbon Dioxide BUN Creatinine Glucose POC Glucose 263 H 266 H 313 H Calcium Alkaline Phosphatase Total Creatine Kinase CK-MB (CK-2) Rel Index Albumin 09/04/18 09/04/18 09/04/18 08:59 08:59 12:15 WBC RBC 5.12 H Hct MCH 26 L RDW 21.0 H Seg Neutrophils % Seg Neutrophils # Sodium 136 L Potassium Chloride 96.1 L Carbon Dioxide BUN 42 H Creatinine 0.6 L Glucose 402 H POC Glucose 342 H Calcium 8.0 L Alkaline Phosphatase Total Creatine Kinase CK-MB (CK-2) Rel Index Albumin 09/04/18 09/04/18 09/05/18 17:09 22:05 09:10 WBC RBC Hct MCH RDW Seg Neutrophils % Seg Neutrophils # Sodium Potassium Chloride Carbon Dioxide BUN Creatinine Glucose POC Glucose 165 H 195 H 221 H Calcium Alkaline Phosphatase Total Creatine Kinase CK-MB (CK-2) Rel Index Albumin 09/05/18 12:14 WBC RBC Hct MCH RDW Seg Neutrophils % Seg Neutrophils # Sodium Potassium Chloride Carbon Dioxide BUN Creatinine Glucose POC Glucose 285 H Calcium Alkaline Phosphatase Total Creatine Kinase CK-MB (CK-2) Rel Index Albumin Chest x-ray: image reviewed Allied health notes reviewed: nursing
[2018-09-05] MEDS ORDERED: SOLU-Medrol IV SCH (14:00)
--- NOTE | 2018-09-05 17:49 | Progress Note ---
Assessment and Plan Assessment and Plan Assessment and plan: Patient is a 58 yo woman with a history of hypertension, type 2 DM, chronic hypoxic respiratory failure on home O2 due to COPD, cor pulmonale, CHF with EF 30-35%, aflutter, pulmonary hypertension, ICM, CAD s/p CABG in 2013 who presents to [facility] ED with son, productive cough and abd redness with pains. She was just discharged from here on08/11/[address] Knox. /Acute on chronic combine heart failure: Cardiology is following and provided additional history not in our EMR, diuresis /Hyperkalemia resolved gave kayexalate saturday, repeat bmp /Aute COPD exacerbation: treat with nebs, iv steroids, empiric abx /Acute on chronic hypoxic respiratory failure, poa: treat the above /Abdominal cellulitis with bilateral groin diaper rash: topical ointment and abx /History of Coronary artery disease: treat with asa and statin /Aflutter with RVR: restart A/C, Cardiology following /Hypertension: low salt cardiac diet /Diabetes mellitus type 2: ssi, ada diet hopefully d/c in 1-2 days, Subjective Date of service: 09/05/18 Principal diagnosis: AE-COPD; Ac on ch hypoxemic Resp failure; Ac CHF exacerbation Interval history: Doing better Objective - Constitutional Vitals: Vital Signs - 12hr 09/05/18 09/05/18 09/05/18 08:34 09:01 09:11 Temperature 98.2 F Pulse Rate 124 H Pulse Rate [ 129 H 125 H Anterior Bilateral Throughout] Pulse Rate [ Apical] Respiratory 20 Rate Respiratory 20 20 Rate [Anterior Bilateral Throughout] Blood Pressure 115/77 O2 Sat by Pulse 92 97 Oximetry 09/05/18 09/05/18 09/05/18 10:00 12:13 14:14 Temperature 98.2 F Pulse Rate Pulse Rate [ 118 H Anterior Bilateral Throughout] Pulse Rate [ 125 H Apical] Respiratory 18 20 Rate Respiratory 20 Rate [Anterior Bilateral Throughout] Blood Pressure 134/98 O2 Sat by Pulse Oximetry 09/05/18 09/05/18 14:25 16:39 Temperature 97.8 F Pulse Rate 131 H Pulse Rate [ 113 H Anterior Bilateral Throughout] Pulse Rate [ Apical] Respiratory 22 Rate Respiratory 20 Rate [Anterior Bilateral Throughout] Blood Pressure 152/81 O2 Sat by Pulse 94 Oximetry General appearance: Present: no acute distress, well-nourished - EENT Eyes: PERRL, EOM intact ENT: hearing intact, clear oral mucosa Ears: bilateral: normal - Neck Neck: supple, normal ROM - Respiratory Respiratory effort: normal Respiratory: bilateral: CTA - Breasts Breasts: normal - Cardiovascular Rhythm: regular Heart Sounds: Present: S1 & S2. Absent: gallop, rub Extremities: pulses intact, No edema, normal color, Full ROM - Gastrointestinal General gastrointestinal: Present: soft, non-tender, non-distended, normal bowel sounds - Genitourinary Female genitourinary: normal - Integumentary Integumentary: clear, warm, dry - Musculoskeletal Musculoskeletal: 1, strength equal bilaterally - Neurologic Neurologic: moves all extremities - Psychiatric Psychiatric: memory intact, appropriate mood/affect, intact judgment & insight - Labs CBC & Chem 7: 09/04/18 08:59 09/04/18 08:59 Labs: Abnormal lab results 09/04/18 09/05/18 09/05/18 Range/Units 22:05 09:10 12:14 POC Glucose 195 H 221 H 285 H (70-105) 09/05/18 Range/Units 16:40 POC Glucose 304 H (70-105)
[2018-09-05] MEDS: DELTASONE PO SCH (18:14)
[2018-09-05] MEDS: AMBIEN PO PRN (22:29)
[2018-09-05] MEDS: XANAX PO PRN (22:38)
--- NOTE | 2018-09-06 01:04 | Progress Note ---
Assessment and Plan Acute on chronic respiratory failure Multifactorial including right heart failure, COPD and tobacco abuse Hyperkalemia Persistent Atrial fib/flutter, rate control with metoprolol on eliquis for oral anticoagulation therapy Ischemic cardiomyopathy with EF 30-35% CAD s/p 3v CABG in 2014 Cor Pulmonale COPD Severe pulmonary hypertension Htn DM PAD s/p TMA Chronic non-compliance with medical therapy and medical follow up Recommend: Advised smoking cessation. Fluid/sodium restriction. Continue medical therapy for persistent Afib/flutter, coronary artery disease and ischemic cardiomyopathy. continue diuresis Keep I/Os negative Subjective Date of service: 09/06/18 Principal diagnosis: AE-COPD; Ac on ch hypoxemic Resp failure; Ac CHF exacerbation Interval history: No Acute events. Resting comfortably. No chest pain. Shortness of breath imp roving. Diuretics are making the patient void. Objective Vital Signs Temp Pulse Pulse Pulse Pulse Resp Resp 09/05/18 22:30 118 H 09/05/18 20:36 09/05/18 20:32 110 H 20 09/05/18 20:22 102 H 09/05/18 16:39 97.8 F 131 H 22 09/05/18 14:25 113 H 20 09/05/18 14:14 118 H 20 09/05/18 12:13 98.2 F 20 09/05/18 10:00 125 H 18 09/05/18 09:11 125 H 20 09/05/18 09:01 129 H 20 09/05/18 08:34 98.2 F 124 H 20 09/05/18 05:35 97.5 F L 104 H 22 Resp BP Pulse Ox 09/05/18 22:30 140/79 09/05/18 20:36 92 09/05/18 20:32 09/05/18 20:22 22 09/05/18 16:39 152/81 94 09/05/18 14:25 09/05/18 14:14 09/05/18 12:13 134/98 09/05/18 10:00 09/05/18 09:11 09/05/18 09:01 97 09/05/18 08:34 115/77 92 09/05/18 05:35 106/66 88 - Physical Examination General: No Apparent Distress HEENT: Positive: PERRL Neck: Positive: trachea midline Neuro: Positive: Grossly Intact Abdomen: Positive: Soft Extremities: Present: +1 Edema - Allied health notes Allied health notes reviewed: nursing
[2018-09-06] MEDS: HumaLOG SUB-Q SCH ×5 (02:26→23:07)
[2018-09-06] MEDS: PERCOCET 5/325 PO PRN ×5 (02:27→20:35)
[2018-09-06] MEDS: LASIX IV SCH ×2 (05:34→18:41)
[2018-09-06] MEDS: XANAX PO PRN ×3 (08:47→21:36)
[2018-09-06] MEDS: DUONEB *Not for PRN Use IH SCH ×4 (09:04→20:01)
[2018-09-06] MEDS: DELTASONE PO SCH (09:10)
[2018-09-06] MEDS: LEVAQUIN PO SCH (09:10)
[2018-09-06] MEDS: NEURONTIN PO SCH ×3 (09:10→20:35)
[2018-09-06] MEDS: BABY ASPIRIN PO SCH (09:10)
[2018-09-06] MEDS: LOPRESSOR PO SCH ×2 (09:11→21:35)
[2018-09-06] MEDS: ZESTRIL PO SCH (09:12)
[2018-09-06] MEDS: MYCOSTATIN TP SCH ×3 (09:14→20:34)
[2018-09-06] MEDS: ELIQUIS PO SCH ×2 (09:39→21:35)
[2018-09-06] MEDS: SODIUM CHLORIDE FLUSH SYRINGE 10 ML IV SCH ×2 (09:47→22:00)
--- NOTE | 2018-09-06 14:46 | Progress Note ---
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 re-evaluate in am & prn Subjective Date of service: 09/06/18 Principal diagnosis: AE-COPD; Ac on ch hypoxemic Resp failure; Ac CHF exacerbation Interval history: Patient is seen today for: Acute on chronic combined heart failure; Hyperkalemia; Acute COPD exacerbation; Acute on chronic hypoxic respiratory failure (POA) Seen and examined at bedside; 24hour events reviewed; nursing and respiratory care staff consulted; no adverse overnight events reported to me; resting peacefully in bed; feels better; denies acute chest pains or palpitations; No N /V/F/C Objective Vital Signs - 12hr 09/06/18 09/06/18 09/06/18 05:21 09:11 09:12 Temperature 97.5 F L Pulse Rate 111 H Respiratory 20 Rate Blood Pressure 97/66 98/52 98/52 O2 Sat by Pulse 96 Oximetry 09/06/18 14:38 Temperature 98.0 F Pulse Rate 125 H Respiratory 18 Rate Blood Pressure 110/69 O2 Sat by Pulse 96 Oximetry Constitutional: no acute distress, alert, other (Morbidly Obese and having mild shortness of breath at rest.) Eyes: non-icteric ENT: oropharynx moist, other (mallampati 3) Neck: supple, no JVD Effort: mildly labored Ascultation: Bilateral: diminished breath sounds, rhonchi, other (proloongrd exp phase) Percussion: Bilateral: not dull Cardiovascular: irregular rhythm Gastrointestinal: normoactive bowel sounds, soft, non-tender, non-distended Integumentary: erythema Extremities: no cyanosis, pink and warm, pulses normal, edema (2++) Neurologic: normal mental status, non-focal exam, pupils equal and round, CN II- XII normal, motor strength normal and Psychiatric: mood appropriate, affect normal CBC and BMP: 09/07/18 05:36 09/07/18 05:36 Abnormal lab findings: Abnormal Labs 08/30/18 08/30/18 08/31/18 20:45 20:45 04:07 WBC 12.1 H RBC 5.55 H Hct 45.1 H MCH 26 L RDW 21.5 H Seg Neutrophils % 78.8 H Seg Neutrophils # 9.6 H Sodium 135 L Potassium Chloride Carbon Dioxide BUN 22 H Creatinine Glucose 144 H POC Glucose Calcium Alkaline Phosphatase 138 H Total Creatine Kinase 29 L CK-MB (CK-2) Rel Index 8.2 H Albumin 3.4 L 08/31/18 08/31/18 08/31/18 04:07 04:07 08:01 WBC RBC 5.36 H Hct 43.7 H MCH 26 L RDW 21.2 H Seg Neutrophils % 73.9 H Seg Neutrophils # Sodium 135 L Potassium Chloride 97.6 L Carbon Dioxide BUN 19 H Creatinine 0.6 L Glucose 112 H POC Glucose 109 H Calcium 8.3 L Alkaline Phosphatase Total Creatine Kinase CK-MB (CK-2) Rel Index Albumin 08/31/18 08/31/18 08/31/18 10:43 12:47 16:19 WBC RBC Hct MCH RDW Seg Neutrophils % Seg Neutrophils # Sodium Potassium Chloride Carbon Dioxide BUN Creatinine Glucose POC Glucose 223 H 189 H Calcium Alkaline Phosphatase Total Creatine Kinase CK-MB (CK-2) Rel Index 6.4 H Albumin 08/31/18 09/01/18 09/01/18 21:07 08:07 11:27 WBC RBC Hct MCH RDW Seg Neutrophils % Seg Neutrophils # Sodium Potassium Chloride Carbon Dioxide BUN Creatinine Glucose POC Glucose 217 H 204 H 257 H Calcium Alkaline Phosphatase Total Creatine Kinase CK-MB (CK-2) Rel Index Albumin 09/01/18 09/01/18 09/02/18 17:23 21:17 06:18 WBC RBC 5.29 H Hct 43.5 H MCH 26 L RDW 20.6 H Seg Neutrophils % Seg Neutrophils # Sodium Potassium Chloride Carbon Dioxide BUN Creatinine Glucose POC Glucose 224 H 224 H Calcium Alkaline Phosphatase Total Creatine Kinase CK-MB (CK-2) Rel Index Albumin 09/02/18 09/02/18 09/02/18 06:18 07:48 11:44 WBC RBC Hct MCH RDW Seg Neutrophils % Seg Neutrophils # Sodium 135 L Potassium 5.3 H Chloride Carbon Dioxide 19 L BUN 35 H Creatinine Glucose 212 H POC Glucose 174 H 242 H Calcium 8.0 L Alkaline Phosphatase Total Creatine Kinase CK-MB (CK-2) Rel Index Albumin 09/02/18 09/02/18 09/03/18 17:19 21:32 06:20 WBC RBC 5.44 H Hct 44.6 H MCH 25 L RDW 21.2 H Seg Neutrophils % Seg Neutrophils # Sodium Potassium Chloride Carbon Dioxide BUN Creatinine Glucose POC Glucose 185 H 228 H Calcium Alkaline Phosphatase Total Creatine Kinase CK-MB (CK-2) Rel Index Albumin 09/03/18 09/03/18 09/03/18 06:20 07:54 12:21 WBC RBC Hct MCH RDW Seg Neutrophils % Seg Neutrophils # Sodium 136 L Potassium Chloride Carbon Dioxide 21 L BUN 40 H Creatinine Glucose 236 H POC Glucose 202 H 279 H Calcium 7.9 L Alkaline Phosphatase Total Creatine Kinase CK-MB (CK-2) Rel Index Albumin 09/03/18 09/03/18 09/04/18 17:44 22:10 07:49 WBC RBC Hct MCH RDW Seg Neutrophils % Seg Neutrophils # Sodium Potassium Chloride Carbon Dioxide BUN Creatinine Glucose POC Glucose 263 H 266 H 313 H Calcium Alkaline Phosphatase Total Creatine Kinase CK-MB (CK-2) Rel Index Albumin 09/04/18 09/04/18 09/04/18 08:59 08:59 12:15 WBC RBC 5.12 H Hct MCH 26 L RDW 21.0 H Seg Neutrophils % Seg Neutrophils # Sodium 136 L Potassium Chloride 96.1 L Carbon Dioxide BUN 42 H Creatinine 0.6 L Glucose 402 H POC Glucose 342 H Calcium 8.0 L Alkaline Phosphatase Total Creatine Kinase CK-MB (CK-2) Rel Index Albumin 09/04/18 09/04/18 09/05/18 17:09 22:05 09:10 WBC RBC Hct MCH RDW Seg Neutrophils % Seg Neutrophils # Sodium Potassium Chloride Carbon Dioxide BUN Creatinine Glucose POC Glucose 165 H 195 H 221 H Calcium Alkaline Phosphatase Total Creatine Kinase CK-MB (CK-2) Rel Index Albumin 09/05/18 09/05/18 09/05/18 12:14 16:40 22:23 WBC RBC Hct MCH RDW Seg Neutrophils % Seg Neutrophils # Sodium Potassium Chloride Carbon Dioxide BUN Creatinine Glucose POC Glucose 285 H 304 H 295 H Calcium Alkaline Phosphatase Total Creatine Kinase CK-MB (CK-2) Rel Index Albumin 09/06/18 09/06/18 08:28 12:45 WBC RBC Hct MCH RDW Seg Neutrophils % Seg Neutrophils # Sodium Potassium Chloride Carbon Dioxide BUN Creatinine Glucose POC Glucose 165 H 196 H Calcium Alkaline Phosphatase Total Creatine Kinase CK-MB (CK-2) Rel Index Albumin Chest x-ray: image reviewed Allied health notes reviewed: nursing
--- NOTE | 2018-09-06 15:06 | Progress Note ---
Assessment and Plan Assessment and Plan Assessment and plan: Patient is a 58 yo woman with a history of hypertension, type 2 DM, chronic hypoxic respiratory failure on home O2 due to COPD, cor pulmonale, CHF with EF 30-35%, aflutter, pulmonary hypertension, ICM, CAD s/p CABG in 2013 who presents to [facility] ED with son, productive cough and abd redness with pains. She was just discharged from here on08/11/[address] Knox. /Acute on chronic combine heart failure: Cardiology is following and provided additional history not in our EMR, diuresis /Hyperkalemia resolved gave kayexalate saturday, repeat bmp /Aute COPD exacerbation: treat with nebs, iv steroids, empiric abx /Acute on chronic hypoxic respiratory failure, poa: treat the above /Abdominal cellulitis with bilateral groin diaper rash: topical ointment and abx /History of Coronary artery disease: treat with asa and statin /Aflutter with RVR: restart A/C, Cardiology following /Hypertension: low salt cardiac diet /Diabetes mellitus type 2: ssi, ada diet L foot wound--Wound care Subjective Date of service: 09/06/18 Principal diagnosis: AE-COPD; Ac on ch hypoxemic Resp failure; Ac CHF exacerbation Interval history: Doing better Objective - Constitutional Vitals: Vital Signs - 12hr 09/06/18 09/06/18 09/06/18 05:21 09:04 09:11 Temperature 97.5 F L Pulse Rate 111 H Pulse Rate [ 115 H Anterior Bilateral Throughout] Respiratory 20 Rate Respiratory 20 Rate [Anterior Bilateral Throughout] Blood Pressure 97/66 98/52 O2 Sat by Pulse 96 Oximetry 09/06/18 09/06/18 09/06/18 09:12 09:15 12:27 Temperature Pulse Rate Pulse Rate [ 130 H 114 H Anterior Bilateral Throughout] Respiratory Rate Respiratory 20 20 Rate [Anterior Bilateral Throughout] Blood Pressure 98/52 O2 Sat by Pulse Oximetry 09/06/18 09/06/18 12:37 14:38 Temperature 98.0 F Pulse Rate 125 H Pulse Rate [ 120 H Anterior Bilateral Throughout] Respiratory 18 Rate Respiratory 20 Rate [Anterior Bilateral Throughout] Blood Pressure 110/69 O2 Sat by Pulse 96 Oximetry General appearance: Present: mild distress, well-nourished - EENT Eyes: PERRL, EOM intact ENT: hearing intact, clear oral mucosa Ears: bilateral: normal - Neck Neck: supple, normal ROM - Respiratory Respiratory effort: normal Respiratory: bilateral: CTA - Breasts Breasts: normal - Cardiovascular Rhythm: regular Heart Sounds: Present: S1 & S2. Absent: gallop, rub Extremities: pulses intact, No edema, normal color, Full ROM, abnormal (L foot infected wound) - Gastrointestinal General gastrointestinal: Present: soft, non-tender, non-distended, normal bowel sounds - Genitourinary Female genitourinary: normal - Integumentary Integumentary: clear, warm, dry - Musculoskeletal Musculoskeletal: 1, strength equal bilaterally - Neurologic Neurologic: moves all extremities - Psychiatric Psychiatric: memory intact, appropriate mood/affect, intact judgment & insight - Labs CBC & Chem 7: 09/04/18 08:59 09/04/18 08:59 Labs: Abnormal lab results 09/05/18 09/05/18 09/06/18 Range/Units 16:40 22:23 08:28 POC Glucose 304 H 295 H 165 H (70-105) 09/06/18 Range/Units 12:45 POC Glucose 196 H (70-105)
[2018-09-06] MEDS: AMBIEN PO PRN (21:36)
[2018-09-06] MEDS ORDERED: LANTUS SUB-Q SCH (22:00)
--- NOTE | 2018-09-06 22:17 | Progress Note ---
Assessment and Plan Acute on chronic respiratory failure Multifactorial including right heart failure, COPD and tobacco abuse Hyperkalemia Persistent Atrial fib/flutter, rate control with metoprolol on eliquis for oral anticoagulation therapy Ischemic cardiomyopathy with EF 30-35% CAD s/p 3v CABG in 2014 Cor Pulmonale COPD Severe pulmonary hypertension Htn DM PAD s/p TMA Chronic non-compliance with medical therapy and medical follow up Recommend: Advised smoking cessation. Fluid/sodium restriction. Continue medical therapy for persistent Afib/flutter, coronary artery disease and ischemic cardiomyopathy. continue diuresis - patient has good urine output with decreased edema and improved respiration on exam Keep I/Os negative Subjective Date of service: 09/07/18 Principal diagnosis: AE-COPD; Ac on ch hypoxemic Resp failure; Ac CHF exacerbation Interval history: No Acute events. Resting comfortably. No chest pain. Shortness of breath improving. Diuretics are making the patient void. Objective Vital Signs Temp Pulse Pulse Resp Resp BP Pulse Ox 09/06/18 21:35 141 H 124/59 09/06/18 20:02 97 09/06/18 17:51 97.5 F L 62 20 144/93 92 09/06/18 14:38 98.0 F 125 H 18 110/69 96 09/06/18 12:37 120 H 20 09/06/18 12:27 114 H 20 09/06/18 09:15 130 H 20 09/06/18 09:12 98/52 09/06/18 09:11 98/52 09/06/18 09:04 115 H 20 09/06/18 05:21 97.5 F L 111 H 20 97/66 96 09/05/18 22:30 118 H 140/79 - Physical Examination General: No Apparent Distress HEENT: Positive: PERRL Neck: Positive: trachea midline Neuro: Positive: Grossly Intact Abdomen: Positive: Soft Extremities: Present: +1 Edema - Allied health notes Allied health notes reviewed: nursing
[2018-09-07] MEDS: PERCOCET 5/325 PO PRN ×4 (00:28→14:48)
[2018-09-07] MEDS: XANAX PO PRN ×2 (04:03→10:13)
[2018-09-07 06:18] LABS: Basophils % (Auto) 0.1 % (0.0-1.8); Eosinophils # (Auto) 0.1 K/mm3 (0.0-0.4); Eosinophils % (Auto) 0.9 % (0.0-4.3); Hematocrit 38.4 % (30.3-42.9); Hemoglobin 12.4 gm/dl (10.1-14.3); Lymphocytes # (Auto) 2.2 K/mm3 (1.2-5.4); Lymphocytes % (Auto) 21.9 % (13.4-35.0); Mean Corpuscular HGB Conc 32 % (30-34); Mean Corpuscular Volume 80 fl (79-97); Monocytes % (Auto) 10.2 % (0.0-7.3); Platelet Count 195 K/mm3 (140-440); Red Blood Count 4.82 M/mm3 (3.65-5.03)
[2018-09-07 06:32] LABS: Red Cell Distribution Width 20.3 % (13.2-15.2)
[2018-09-07 06:44] LABS: Alanine Aminotransferase 14 units/L (7-56); Albumin 3.4 g/dL (3.9-5); BUN/Creatinine Ratio 70; Blood Urea Nitrogen 49 mg/dL (7-17); Calcium 8.1 mg/dL (8.4-10.2); Hemolysis Index 11
[2018-09-07] MEDS: LASIX IV SCH (06:45)
[2018-09-07] MEDS: DUONEB *Not for PRN Use IH SCH ×3 (07:33→13:38)
[2018-09-07] MEDS: NEURONTIN PO SCH (08:20)
[2018-09-07] MEDS: HumaLOG SUB-Q SCH ×2 (09:23→16:00)
[2018-09-07] MEDS: MYCOSTATIN TP SCH (09:59)
[2018-09-07] MEDS: ELIQUIS PO SCH (11:44)
[2018-09-07] MEDS: LEVAQUIN PO SCH (11:44)
[2018-09-07] MEDS: DELTASONE PO SCH (11:44)
[2018-09-07] MEDS: BABY ASPIRIN PO SCH (11:44)
[2018-09-07] MEDS: ZESTRIL PO SCH (11:45)
[2018-09-07] MEDS: LOPRESSOR PO SCH (11:45)
[2018-09-07 11:46] VITALS: BP 109/49
[2018-09-07] MEDS: SODIUM CHLORIDE FLUSH SYRINGE 10 ML IV SCH (11:54)
--- NOTE | 2018-09-07 12:11 | Discharge Summary ---
Providers - Providers Date of Admission: 08/31/18 03:55 Date of discharge: 09/07/18 Attending physician: TEX LUZ 08/31/18 03:55 Consult to Physician [CONS] Routine Comment: Consulting Provider: LOKESH MASTERSON Physician Instructions: Reason For Exam: chf 08/31/18 07:48 Consult to Wound/ET Nurse [CONS] Urgent Reason For Exam: wound eval 09/01/18 15:50 Consult to Physician [CONS] Routine Comment: Consulting Provider: ULIS LEAL Physician Instructions: Reason For Exam: resp failure, severe pul htn, pt known to you Primary care physician: [employer] Hospitalization Condition: Stable Hospital course: Assessment and Plan Acute on chronic respiratory failure Multifactorial including right heart failure, COPD and tobacco abuse Neb treatments L foot wound--Wound care Hyperkalemia Persistent Atrial fib/flutter, rate control with metoprolol on eliquis for oral anticoagulation therapy Ischemic cardiomyopathy with EF 30-35% CAD s/p 3v CABG in 2013 Cor Pulmonale COPD Severe pulmonary hypertension Htn DM PAD s/p TMA Chronic non-compliance with medical therapy and medical follow up Recommend: Advised smoking cessation. Fluid/sodium restriction. Continue medical therapy for persistent Afib/flutter, coronary artery disease and ischemic cardiomyopathy. continue diuresis - patient has good urine output with decreased edema and improved respiration on exam Keep I/Os negative Disposition: DC-01 TO HOME OR SELFCARE Core Measure Documentation - Palliative Care Palliative Care/ Comfort Measures: Not Applicable - Core Measures Any of the following diagnoses?: none Exam - Constitutional Vitals: Temp Pulse Resp BP Pulse Ox 98.1 F 129 H 22 109/49 98 09/07/18 06:32 09/07/18 07:43 09/07/18 07:43 09/07/18 11:45 09/07/18 07:33 General appearance: Present: no acute distress, well-nourished - EENT Eyes: Present: PERRL ENT: hearing intact, clear oral mucosa - Neck Neck: Present: supple, normal ROM - Respiratory Respiratory effort: normal Respiratory: bilateral: CTA - Cardiovascular Heart rate: 76 Rhythm: regular Heart Sounds: Present: S1 & S2. Absent: rub, click - Extremities Extremities: no ischemia, pulses intact, pulses symmetrical, No edema Extremity abnormal: other (L foort and Rt foot ulcer) Peripheral Pulses: within normal limits - Abdominal General gastrointestinal: Present: soft, non-tender, non-distended, normal bowel sounds Female genitourinary: Present: normal - Rectal Rectal Exam: deferred - Integumentary Integumentary: Present: clear, warm, dry - Musculoskeletal Musculoskeletal: gait normal, strength equal bilaterally - Psychiatric Psychiatric: appropriate mood/affect, intact judgment & insight - Neurologic Neurologic: CNII-XII intact, moves all extremities - Allied Health Allied health notes reviewed: nursing, case management Plan Activity: no restrictions Diet: low cholesterol, low salt, diabetic Follow up with: PRIMARY CARE, [Primary Care Provider] - 3-5 Days CASSANDRA IRWIN MD [Staff Physician] - 7 Days
--- NOTE | 2018-09-07 13:32 | Progress Note ---
Assessment and Plan Patient awake, says breathing better.Patient presently on room air. O2 saturation 98%. Patient going home. Told her to come to the office in 2 weeks for pulmonary follow up.. - Patient Problems (1) Acute respiratory failure Current Visit: No Status: Acute Plan to address problem: O2 2 litres via nasal canula. Albuterol/atrovent aerosol treatments q 6 hours. Continue Prednisone.. Continue Levaquin Patient is on Apixaban. (2) CAD (coronary artery disease) of artery bypass graft Current Visit: No Status: Acute Plan to address problem: Management as per cardiology. (3) Congestive cardiomyopathy Current Visit: No Status: Acute Plan to address problem: Management as per cardiology. (4) CHF (congestive heart failure) Current Visit: No Status: Chronic Qualifiers: Heart failure type: unspecified Heart failure chronicity: acute on chronic Qualified Code(s): I50.9 - Heart failure, unspecified Plan to address problem: Management as per cardiology. (5) COPD exacerbation Current Visit: No Status: Chronic Plan to address problem: O2 2 litres via nasal canula. Albuterol/atrovent aerosol treatments q 6 hours. Continue PO prednisone.. Continue Levaquin Patient is on Apixaban. PFTs as out patient. Come to the office in 2 weeks for pulmonary follow up. Subjective Date of service: 09/07/18 Principal diagnosis: AE-COPD; Ac on ch hypoxemic Resp failure; Ac CHF exacerbation Interval history: Patient awake, says breathing better.Patient presently on room air. O2 saturation 98%. Patient going home. Told her to come to the office in 2 weeks for pulmonary follow up. Objective Vital Signs - 12hr 09/07/18 09/07/18 09/07/18 06:32 07:33 07:43 Temperature 98.1 F Pulse Rate 144 H Pulse Rate [ 134 H 129 H Anterior Bilateral Throughout] Respiratory 18 Rate Respiratory 22 22 Rate [Anterior Bilateral Throughout] Blood Pressure 102/38 O2 Sat by Pulse 97 98 Oximetry 09/07/18 11:45 Temperature Pulse Rate Pulse Rate [ Anterior Bilateral Throughout] Respiratory Rate Respiratory Rate [Anterior Bilateral Throughout] Blood Pressure 109/49 O2 Sat by Pulse Oximetry Constitutional: no acute distress, alert, other (Morbidly Obese and having mild shortness of breath at rest.) Eyes: non-icteric ENT: oropharynx moist, other (mallampati 3) Neck: supple, no JVD Effort: mildly labored Ascultation: Bilateral: diminished breath sounds, other (proloongrd exp phase) Percussion: Bilateral: not dull Cardiovascular: irregular rhythm Gastrointestinal: normoactive bowel sounds, soft, non-tender, non-distended Integumentary: erythema Extremities: no cyanosis, pink and warm, pulses normal, edema (2++) Neurologic: normal mental status, non-focal exam, pupils equal and round, CN II- XII normal, motor strength normal and Psychiatric: mood appropriate, affect normal CBC and BMP: 09/07/18 05:36 09/07/18 05:36 Abnormal lab findings: Abnormal Labs 08/30/18 08/30/18 08/31/18 20:45 20:45 04:07 WBC 12.1 H RBC 5.55 H Hct 45.1 H MCH 26 L RDW 21.5 H [place] % (Auto) [place] # Seg Neutrophils % 78.8 H Seg Neutrophils # 9.6 H Sodium 135 L Potassium Chloride Carbon Dioxide BUN 22 H Creatinine Glucose 144 H POC Glucose Calcium Alkaline Phosphatase 138 H Total Creatine Kinase 29 L CK-MB (CK-2) Rel Index 8.2 H Total Protein Albumin 3.4 L 08/31/18 08/31/18 08/31/18 04:07 04:07 08:01 WBC RBC 5.36 H Hct 43.7 H MCH 26 L RDW 21.2 H [place] % (Auto) [place] # Seg Neutrophils % 73.9 H Seg Neutrophils # Sodium 135 L Potassium Chloride 97.6 L Carbon Dioxide BUN 19 H Creatinine 0.6 L Glucose 112 H POC Glucose 109 H Calcium 8.3 L Alkaline Phosphatase Total Creatine Kinase CK-MB (CK-2) Rel Index Total Protein Albumin 08/31/18 08/31/18 08/31/18 10:43 12:47 16:19 WBC RBC Hct MCH RDW [place] % (Auto) [place] # Seg Neutrophils % Seg Neutrophils # Sodium Potassium Chloride Carbon Dioxide BUN Creatinine Glucose POC Glucose 223 H 189 H Calcium Alkaline Phosphatase Total Creatine Kinase CK-MB (CK-2) Rel Index 6.4 H Total Protein Albumin 08/31/18 09/01/18 09/01/18 21:07 08:07 11:27 WBC RBC Hct MCH RDW [place] % (Auto) [place] # Seg Neutrophils % Seg Neutrophils # Sodium Potassium Chloride Carbon Dioxide BUN Creatinine Glucose POC Glucose 217 H 204 H 257 H Calcium Alkaline Phosphatase Total Creatine Kinase CK-MB (CK-2) Rel Index Total Protein Albumin 09/01/18 09/01/18 09/02/18 17:23 21:17 06:18 WBC RBC 5.29 H Hct 43.5 H MCH 26 L RDW 20.6 H [place] % (Auto) [place] # Seg Neutrophils % Seg Neutrophils # Sodium Potassium Chloride Carbon Dioxide BUN Creatinine Glucose POC Glucose 224 H 224 H Calcium Alkaline Phosphatase Total Creatine Kinase CK-MB (CK-2) Rel Index Total Protein Albumin 09/02/18 09/02/18 09/02/18 06:18 07:48 11:44 WBC RBC Hct MCH RDW [place] % (Auto) [place] # Seg Neutrophils % Seg Neutrophils # Sodium 135 L Potassium 5.3 H Chloride Carbon Dioxide 19 L BUN 35 H Creatinine Glucose 212 H POC Glucose 174 H 242 H Calcium 8.0 L Alkaline Phosphatase Total Creatine Kinase CK-MB (CK-2) Rel Index Total Protein Albumin 09/02/18 09/02/18 09/03/18 17:19 21:32 06:20 WBC RBC 5.44 H Hct 44.6 H MCH 25 L RDW 21.2 H [place] % (Auto) [place] # Seg Neutrophils % Seg Neutrophils # Sodium Potassium Chloride Carbon Dioxide BUN Creatinine Glucose POC Glucose 185 H 228 H Calcium Alkaline Phosphatase Total Creatine Kinase CK-MB (CK-2) Rel Index Total Protein Albumin 09/03/18 09/03/18 09/03/18 06:20 07:54 12:21 WBC RBC Hct MCH RDW [place] % (Auto) [place] # Seg Neutrophils % Seg Neutrophils # Sodium 136 L Potassium Chloride Carbon Dioxide 21 L BUN 40 H Creatinine Glucose 236 H POC Glucose 202 H 279 H Calcium 7.9 L Alkaline Phosphatase Total Creatine Kinase CK-MB (CK-2) Rel Index Total Protein Albumin 09/03/18 09/03/18 09/04/18 17:44 22:10 07:49 WBC RBC Hct MCH RDW [place] % (Auto) [place] # Seg Neutrophils % Seg Neutrophils # Sodium Potassium Chloride Carbon Dioxide BUN Creatinine Glucose POC Glucose 263 H 266 H 313 H Calcium Alkaline Phosphatase Total Creatine Kinase CK-MB (CK-2) Rel Index Total Protein Albumin 09/04/18 09/04/18 09/04/18 08:59 08:59 12:15 WBC RBC 5.12 H Hct MCH 26 L RDW 21.0 H [place] % (Auto) [place] # Seg Neutrophils % Seg Neutrophils # Sodium 136 L Potassium Chloride 96.1 L Carbon Dioxide BUN 42 H Creatinine 0.6 L Glucose 402 H POC Glucose 342 H Calcium 8.0 L Alkaline Phosphatase Total Creatine Kinase CK-MB (CK-2) Rel Index Total Protein Albumin 09/04/18 09/04/18 09/05/18 17:09 22:05 09:10 WBC RBC Hct MCH RDW [place] % (Auto) [place] # Seg Neutrophils % Seg Neutrophils # Sodium Potassium Chloride Carbon Dioxide BUN Creatinine Glucose POC Glucose 165 H 195 H 221 H Calcium Alkaline Phosphatase Total Creatine Kinase CK-MB (CK-2) Rel Index Total Protein Albumin 09/05/18 09/05/18 09/05/18 12:14 16:40 22:23 WBC RBC Hct MCH RDW [place] % (Auto) [place] # Seg Neutrophils % Seg Neutrophils # Sodium Potassium Chloride Carbon Dioxide BUN Creatinine Glucose POC Glucose 285 H 304 H 295 H Calcium Alkaline Phosphatase Total Creatine Kinase CK-MB (CK-2) Rel Index Total Protein Albumin 09/06/18 09/06/18 09/06/18 08:28 12:45 16:23 WBC RBC Hct MCH RDW [place] % (Auto) [place] # Seg Neutrophils % Seg Neutrophils # Sodium Potassium Chloride Carbon Dioxide BUN Creatinine Glucose POC Glucose 165 H 196 H 158 H Calcium Alkaline Phosphatase Total Creatine Kinase CK-MB (CK-2) Rel Index Total Protein Albumin 09/06/18 09/07/18 09/07/18 22:04 05:36 05:36 WBC RBC Hct MCH 26 L RDW 20.3 H [place] % (Auto) 10.2 H [place] # 1.0 H Seg Neutrophils % Seg Neutrophils # Sodium Potassium Chloride Carbon Dioxide BUN 49 H Creatinine Glucose POC Glucose 236 H Calcium 8.1 L Alkaline Phosphatase Total Creatine Kinase CK-MB (CK-2) Rel Index Total Protein 5.4 L Albumin 3.4 L 09/07/18 07:58 WBC RBC Hct MCH RDW [place] % (Auto) [place] # Seg Neutrophils % Seg Neutrophils # Sodium Potassium Chloride Carbon Dioxide BUN Creatinine Glucose POC Glucose 65 L Calcium Alkaline Phosphatase Total Creatine Kinase CK-MB (CK-2) Rel Index Total Protein Albumin Allied health notes reviewed: nursing
== END 2018-09-07 15:15 | disposition home health service (06) | DRG 291 ==
LOC: ED 19:13 → 4A 08-31 03:55 → 3A 09-05 20:09
PROVIDERS: ADMIT Internal Medicine; ATTEND Internal Medicine
DX: I11.0 Hypertensive heart disease with heart failure (principal); J96.21 Acute and chronic respiratory failure with hypoxia; J44.1 Chronic obstructive pulmonary disease with (acute) exacerbation; I50.43 Acute on chronic combined systolic (congestive) and diastolic (congestive) heart failure; L03.311 Cellulitis of abdominal wall; F17.210 Nicotine dependence, cigarettes, uncomplicated; I27.20 Pulmonary hypertension, unspecified; E11.51 Type 2 diabetes mellitus with diabetic peripheral angiopathy without gangrene; I48.92 Unspecified atrial flutter; I25.810 Atherosclerosis of coronary artery bypass graft(s) without angina pectoris; I48.1 Persistent atrial fibrillation; E87.5 Hyperkalemia; I42.0 Dilated cardiomyopathy; E66.01 Morbid (severe) obesity due to excess calories; I25.5 Ischemic cardiomyopathy; I27.81 Cor pulmonale (chronic); Z71.6 Tobacco abuse counseling; Z95.1 Presence of aortocoronary bypass graft; Z82.49 Family history of ischemic heart disease and other diseases of the circulatory system; Z89.429 Acquired absence of other toe(s), unspecified side; Z88.0 Allergy status to penicillin; Z79.51 Long term (current) use of inhaled steroids; Z79.899 Other long term (current) drug therapy; Z79.01 Long term (current) use of anticoagulants; Z79.82 Long term (current) use of aspirin; Z91.14 Patient's other noncompliance with medication regimen; Z99.81 Dependence on supplemental oxygen; Z68.43 Body mass index [BMI] 50.0-59.9, adult; Z79.84 Long term (current) use of oral hypoglycemic drugs
CPT/HCPCS: 36415; 71045; 71260; 80048; 80053; 81001; 82140; 82550; 82553; 82962; 84484; 85025; 85027; 86850; 86900; 86901; 87040; 87116; 93005; 93010; 94640; 94760; 99406; G0378; A9270-GY; J1650; J1815; J1940; J1956; J2270; J2930; J3010; J3370; J7040; J7512; Q9967

== ENCOUNTER 2018-10-04 18:23 | Inpatient (IN) | payer MEDICAID ==
[2018-10-04] MEDS ORDERED: ZOFRAN IV ONE (19:01)
[2018-10-04] MEDS ORDERED: NACL 0.9% 1000 ML 1,000 ML IV ONE (19:01)
[2018-10-04] MEDS ORDERED: MORPHINE IV ONE (19:01)
[2018-10-04] MEDS ORDERED: XOPENEX IH ONE ×2 (19:02→21:48)
[2018-10-04] MEDS ORDERED: ATIVAN IV ONE (19:03)
[2018-10-04 19:19] LABS: Basophils # (Auto) 0.1 K/mm3 (0.0-0.1); Basophils % (Auto) 0.7 % (0.0-1.8); Eosinophils % (Auto) 0.4 % (0.0-4.3); Hematocrit 40.2 % (30.3-42.9); Hemoglobin 12.5 gm/dl (10.1-14.3); Lymphocytes # (Auto) 1.2 K/mm3 (1.2-5.4); Mean Corpuscular HGB Conc 31 % (30-34); Mean Corpuscular Volume 83 fl (79-97); Monocytes # (Auto) 0.5 K/mm3 (0.0-0.8); Monocytes % (Auto) 5.8 % (0.0-7.3); Platelet Count 211 K/mm3 (140-440); Red Blood Count 4.84 M/mm3 (3.65-5.03)
[2018-10-04 19:20] LABS: Red Cell Distribution Width 22.2 % (13.2-15.2)
--- NOTE | 2018-10-04 19:41 | Emergency Department Report ---
ED General Adult HPI - General Chief complaint: Dyspnea/Respdistress Stated complaint: MAGDIEL Time Seen by Provider: 10/04/18 18:57 Source: patient, EMS Mode of arrival: Stretcher Limitations: Physical Limitation - History of Present Illness Initial comments: Patient is a 58-year-old female with diabetes and COPD who is presenting with 2 complaints are quite minimal was that the patient is having a COPD exacerbation. She's had some increased shortness of breath with wheezing and cough for the last several days. Patient also is complaining of some diarrhea has been present for approximately a week. Patient states last night she noted blood on the toilet paper as well as in the commode. Patient states the she is going so frequently that sometimes is hard to get to the bathroom in time she has had several accidents. Patient denies any abdominal pain unless she is about to have a loose stool. She denies any nausea vomiting fevers at this time. - Related Data Previous Rx's Medication Instructions Recorded Last Taken Type ALPRAZolam [Xanax TAB] 1 mg PO Q6H PRN #24 tablet 09/07/18 Unknown Rx Apixaban [Eliquis] 5 mg PO Q12HR #60 tablet 09/07/18 Unknown Rx Aspirin [Aspirin BABY CHEW TAB] 81 mg PO DAILY #100 tab.chew 09/07/18 Unknown Rx AtorvaSTATin [Lipitor] 40 mg PO QHS #30 tablet 09/07/18 Unknown Rx Furosemide [Lasix TAB] 40 mg PO QDAY #30 tablet 09/07/18 Unknown Rx Gabapentin [Neurontin] 300 mg PO TID #90 capsule 09/07/18 Unknown Rx Insulin Glargine [Lantus VIAL] 20 units SUB-Q QHS #1 vial 09/07/18 Unknown Rx Insulin NPH/Regular [NovoLIN 70/30] 14 unit SUB-Q BIDDIAB #5 pen 09/07/18 Unknown Rx Ipratropium/Albuterol Sulfate 1 ampul IH QIDRT #120 ampul.neb 09/07/18 Unknown Rx [DUONEB *Not for PRN Use*] Lisinopril [Zestril TAB] 2.5 mg PO QDAY #30 tablet 09/07/18 Unknown Rx Lisinopril [Zestril TAB] 20 mg PO DAILY #30 tablet 09/07/18 Unknown Rx Lispro Insulin [Humalog] 5 unit SUB-Q ACHS #5 units 09/07/18 Unknown Rx Metoprolol [Lopressor TAB] 25 mg PO BID #60 tablet 09/07/18 Unknown Rx Morphine [Morphine TAB] 30 mg PO DAILY PRN #10 tablet 09/07/18 Unknown Rx Zolpidem [Ambien] 5 mg PO QHS #15 tablet 09/07/18 Unknown Rx levoFLOXacin [Levaquin TAB] 750 mg PO Q24HR #10 tablet 09/07/18 Unknown Rx oxyCODONE /ACETAMINOPHEN [Percocet 1 tab PO Q4H PRN #18 tablet 09/07/18 Unknown Rx 5/325 mg] predniSONE [Deltasone] 20 mg PO QDAY #10 tablet 09/07/18 Unknown Rx Allergies Allergy/AdvReac Type Severity Reaction Status Date / Time Penicillins Allergy Itching Verified 04/03/18 12:43 ED Review of Systems ROS: Stated complaint: MAGDIEL Other details as noted in HPI Comment: All other systems reviewed and negative ED Past Medical Hx - Past Medical History Hx Hypertension: Yes Hx CVA: Yes (TIA) Hx Heart Attack/AMI: No Hx Congestive Heart Failure: Yes Hx Diabetes: Yes Hx Deep Vein Thrombosis: No Hx Pulmonary Embolism: No Hx Liver Disease: No Hx Sickle Cell Disease: No Hx Arthritis: No Hx Seizures: No Hx Kidney Stones: No Hx Asthma: Yes Hx COPD: Yes Hx Tuberculosis: No Hx Dementia: No Hx HIV: No Additional medical history: Diabetic neuropathy, previous CVA per medical record - Surgical History Hx Coronary Stent: No Hx Open Heart Surgery: Yes (CABG x 3) Hx Internal Defibrillator: No Hx Cholecystectomy: No Additional Surgical History: tonsillectomy. all toes on left foot amputated. right great toe amputated - Social History Smoking Status: Current Every Day Smoker - Medications Home Medications: Home Medications Medication Instructions Recorded Confirmed Last Taken Type ALPRAZolam [Xanax TAB] 1 mg PO Q6H PRN #24 tablet 09/07/18 Unknown Rx Apixaban [Eliquis] 5 mg PO Q12HR #60 tablet 09/07/18 Unknown Rx Aspirin [Aspirin BABY CHEW TAB] 81 mg PO DAILY #100 tab.chew 09/07/18 Unknown Rx AtorvaSTATin [Lipitor] 40 mg PO QHS #30 tablet 09/07/18 Unknown Rx Furosemide [Lasix TAB] 40 mg PO QDAY #30 tablet 09/07/18 Unknown Rx Gabapentin [Neurontin] 300 mg PO TID #90 capsule 09/07/18 Unknown Rx Insulin Glargine [Lantus VIAL] 20 units SUB-Q QHS #1 vial 09/07/18 Unknown Rx Insulin NPH/Regular [NovoLIN 70/30] 14 unit SUB-Q BIDDIAB #5 pen 09/07/18 Unknown Rx Ipratropium/Albuterol Sulfate 1 ampul IH QIDRT #120 ampul.neb 09/07/18 Unknown Rx [DUONEB *Not for PRN Use*] Lisinopril [Zestril TAB] 2.5 mg PO QDAY #30 tablet 09/07/18 Unknown Rx Lisinopril [Zestril TAB] 20 mg PO DAILY #30 tablet 09/07/18 Unknown Rx Lispro Insulin [Humalog] 5 unit SUB-Q ACHS #5 units 09/07/18 Unknown Rx Metoprolol [Lopressor TAB] 25 mg PO BID #60 tablet 09/07/18 Unknown Rx Morphine [Morphine TAB] 30 mg PO DAILY PRN #10 tablet 09/07/18 Unknown Rx Zolpidem [Ambien] 5 mg PO QHS #15 tablet 09/07/18 Unknown Rx levoFLOXacin [Levaquin TAB] 750 mg PO Q24HR #10 tablet 09/07/18 Unknown Rx oxyCODONE /ACETAMINOPHEN [Percocet 1 tab PO Q4H PRN #18 tablet 09/07/18 Unknown Rx 5/325 mg] predniSONE [Deltasone] 20 mg PO QDAY #10 tablet 09/07/18 Unknown Rx ED Physical Exam - General Limitations: Physical Limitation General appearance: alert, in distress - Head Head exam: Present: atraumatic, normocephalic - Eye Eye exam: Present: normal appearance, PERRL, EOMI - ENT ENT exam: Present: mucous membranes moist - Neck Neck exam: Present: normal inspection - Respiratory Respiratory exam: Present: respiratory distress, wheezes. Absent: normal lung sounds bilaterally, rales, rhonchi, stridor - Cardiovascular Cardiovascular Exam: Present: normal rhythm, tachycardia, normal heart sounds. Absent: systolic murmur, diastolic murmur, rubs, gallop - GI/Abdominal GI/Abdominal exam: Present: soft, normal bowel sounds. Absent: distended, tenderness, guarding, rebound - Extremities Exam Extremities exam: Present: normal inspection, tenderness (to the right shoulder with some bruising. Patient states she had a fall last week.) - Back Exam Back exam: Present: normal inspection - Neurological Exam Neurological exam: Present: alert, oriented X3 - Psychiatric Psychiatric exam: Present: normal affect, normal mood - Skin Skin exam: Present: warm, dry, intact, normal color. Absent: rash ED Course Vital Signs 10/04/18 10/04/18 10/04/18 19:06 19:30 20:00 Temperature 98.4 F Pulse Rate 140 H 141 H 135 H Pulse Rate [ Anterior Bilateral Throughout] Respiratory 18 18 35 H Rate Respiratory Rate [Anterior Bilateral Throughout] Blood Pressure 115/74 109/82 Blood Pressure 115/74 [Right] O2 Sat by Pulse 95 97 97 Oximetry 10/04/18 10/04/18 10/04/18 21:04 21:30 21:42 Temperature Pulse Rate 136 H Pulse Rate [ 135 H Anterior Bilateral Throughout] Respiratory 17 Rate Respiratory 18 Rate [Anterior Bilateral Throughout] Blood Pressure 100/61 120/75 Blood Pressure [Right] O2 Sat by Pulse 98 96 Oximetry ED Medical Decision Making - Lab Data Result diagrams: 10/04/18 19:05 10/04/18 19:05 Lab Results 10/04/18 10/04/18 10/04/18 Range/Units 19:05 19:05 Unknown WBC 8.1 (4.5-11.0) K/mm3 RBC 4.84 (3.65-5.03) M/mm3 Hgb 12.5 (10.1-14.3) gm/dl Hct 40.2 (30.3-42.9) % MCV 83 (79-97) fl MCH 26 L (28-32) pg MCHC 31 (30-34) % RDW 22.2 H (13.2-15.2) % Plt Count 211 (140-440) K/mm3 Lymph % (Auto) 15.0 (13.4-35.0) % [place] % (Auto) 5.8 (0.0-7.3) % Eos % (Auto) 0.4 (0.0-4.3) % Baso % (Auto) 0.7 (0.0-1.8) % Lymph # 1.2 (1.2-5.4) K/mm3 [place] # 0.5 (0.0-0.8) K/mm3 Eos # 0.0 (0.0-0.4) K/mm3 Baso # 0.1 (0.0-0.1) K/mm3 Seg Neutrophils % 78.1 H (40.0-70.0) % Seg Neutrophils # 6.3 (1.8-7.7) K/mm3 Sodium 143 (137-145) mmol/L Potassium 5.1 H (3.6-5.0) mmol/L Chloride 111.1 H (98-107) mmol/L Carbon Dioxide 20 L (22-30) mmol/L Anion Gap 17 mmol/L BUN 16 (7-17) mg/dL Creatinine 0.5 L (0.7-1.2) mg/dL Estimated GFR > 60 ml/min BUN/Creatinine Ratio 32 % Glucose 190 H (65-100) mg/dL Calcium 7.9 L (8.4-10.2) mg/dL Total Bilirubin 1.00 (0.1-1.2) mg/dL AST 27 (5-40) units/L ALT 14 (7-56) units/L Alkaline Phosphatase 143 H (35-129) units/L Troponin T < 0.010 (0.00-0.029) ng/mL Total Protein 6.1 L (6.3-8.2) g/dL Albumin 3.4 L (3.9-5) g/dL Albumin/Globulin Ratio 1.3 % Urine Color Yellow (Yellow) Urine Turbidity Slightly-cloudy (Clear) Urine pH 5.0 (5.0-7.0) Ur Specific [place] 1.060 H (1.003-1.030) Urine Protein 30 mg/dl (Negative) mg/dL Urine Glucose (UA) Neg (Negative) mg/dL Urine Ketones Neg (Negative) mg/dL Urine Blood Sm (Negative) Urine Nitrite Neg (Negative) Urine Bilirubin Neg (Negative) Urine Urobilinogen < 2.0 (<2.0) mg/dL Ur Leukocyte Esterase Tr (Negative) Urine WBC (Auto) 4.0 (0.0-6.0) /HPF Urine RBC (Auto) 9.0 (0.0-6.0) /HPF U Epithel Cells (Auto) 43.0 H (0-13.0) /HPF Urine Bacteria (Auto) 2+ (Negative) /HPF Urine Mucus 2+ /HPF - EKG Data -: EKG Interpreted by Md - EKG Data 10/04/18 22:29 EKG shows sinus tachycardia 141 axis normal intervals except for prolonged QT. There are no ST segment elevations or depressions present. - Radiology Data [facility] [address] [place] [address] Cat Scan Report Signed Patient: PATI GUILLEN MR#: [id number] : 1960 Acct:[id number] Age/Sex: 58 / F ADM Date: 10/04/18 Loc: ED Attending Dr: Ordering Physician: MAGGIE MORRISON MD Date of Service: 10/04/18 Procedure(s): CT abdomen pelvis w con Accession Number(s): [id number] cc: MAGGIE MORRISON MD PROCEDURE: CT ABDOMEN PELVIS W CON TECHNIQUE: Computerized axial tomography of the abdomen and pelvis was performed after the IV injection of iodinated nonionic contrast. CT DOSE LENGTH PRODUCT: mGycm HISTORY: abd pain with possible GI bleed COMPARISONS: None . FINDINGS: Visualized lower thorax: There is a left pleural effusion.. Liver: The liver is enlarged and fatty.. Spleen: Normal size and attenuation. Gallbladder and biliary system: Normal. Pancreas: Normal. Adrenals: Normal. Kidneys: Normal. GI tract: There is no bowel obstruction or perforation. There is no colitis or enteritis. The appendix is normal. . Lymph nodes and mesentery: Normal. Vasculature: There is calcified plaque in the abdominal aorta. There is no aneurysm.. Bladder: Normal. Reproductive organs: Uterus is intact. Peritoneum: There is moderate ascites. There is no free air, abscess or adenopathy.. Musculoskeletal structures: No significant abnormality. Other: There is generalized subcutaneous edema. . IMPRESSION: There is a left pleural effusion.. The liver is enlarged and fatty.. There is no bowel obstruction or perforation. There is no colitis or enteritis. The appendix is normal. . Uterus is intact. There is moderate ascites. There is no free air, abscess or adenopathy.. There is generalized subcutaneous edema. . . This document is electronically signed by Roderick Almonte MD., October 04 2018 09:51:03 PM ET Transcribed By: CO Dictated By: RODERICK ALMONTE MD Electronically Authenticated By: RODERICK ALMONTE MD Signed Date/Time: 10/04/18 2[address] [facility] [address] [place] [address] XRay Report Signed Patient: PATI GUILLEN MR#: [id number] : 1960 Acct:[id number] Age/Sex: 58 / F ADM Date: 10/04/18 Loc: ED Attending Dr: Ordering Physician: MAGGIE MORRISON MD Date of Service: 10/04/18 Procedure(s): XR chest 1V ap Accession Number(s): [id number] cc: MAGGIE MORRISON MD Fluoro Time In Minutes: PROCEDURE: XR CHEST 1V AP TECHNIQUE: Single radiograph of the chest obtained. HISTORY: cough with wheeze COMPARISONS: 08/31/2018. FINDINGS: Sternotomy wires and CABG clips noted. Heart is enlarged. Left lower lobe opacity consistent with small effusion versus pneumonia. IMPRESSION: Left lower lobe opacity consistent with small effusion versus pneumonia.. This document is electronically signed by Khang Leslie MD., October 04 2018 08:18:31 PM ET Transcribed By: QF Dictated By: KHANG LESLIE Electronically Authenticated By: KHANG LESLIE Signed Date/Time: 10/04/18 2020 - Medical Decision Making Patient is a 58-year-old female is presenting with 1 week of diarrhea as well as cough cold congestion and possible subjective fever at home. Patient is on 2 L oxygen for COPD and appears to be a COPD exacerbation. Patient after receiving nebulized albuterol and Atrovent as well as Solu-Medrol and magnesium is continued to wheeze and cough. Patient with minimal movement such as turning over in bed begins to wheeze loudly and patient becomes tachypnea. Patient to be admitted for COPD exacerbation. X-ray shows possible left lower lobe infiltrate as well. Patient had blood cultures drawn the patient was given a dose of Levaquin. Regarding the patient's diarrhea was likely is viral in nature. Critical care attestation.: If time is entered above; I have spent that time in minutes in the direct care of this critically ill patient, excluding procedure time. ED Disposition Clinical Impression: COPD exacerbation, SOB (shortness of breath), Anal wart GI bleeding Qualifiers: GI bleed type/associated pathology: anorectal hemorrhage Qualified Code(s): K62.5 - Hemorrhage of anus and rectum Pneumonia Qualifiers: Pneumonia type: due to unspecified organism Laterality: left Lung location: lower lobe of lung Qualified Code(s): J18.1 - Lobar pneumonia, unspecified organism Disposition: OP ADMIT IP TO THIS HOSP Is pt being admited?: Yes Does the pt Need Aspirin: No Condition: Stable Instructions: Chronic Obstructive Pulmonary Disease (ED), Bacterial Pneumonia (ED) Time of Disposition: 22:33
[2018-10-04 19:57] LABS: Alanine Aminotransferase 14 units/L (7-56); Albumin 3.4 g/dL (3.9-5); BUN/Creatinine Ratio 32; Blood Urea Nitrogen 16 mg/dL (7-17); Calcium 7.9 mg/dL (8.4-10.2); Hemolysis Index 77
--- NOTE | 2018-10-04 20:20 | XRay Report ---
PROCEDURE: XR CHEST 1V AP TECHNIQUE: Single radiograph of the chest obtained. HISTORY: cough with wheeze COMPARISONS: 08/31/2018. FINDINGS: Sternotomy wires and CABG clips noted. Heart is enlarged. Left lower lobe opacity consistent with sma ll effusion versus pneumonia. IMPRESSION: Left lower lobe opacity consistent with small effusion versus pneumonia.. This document is electronically signed by Jordana uHff MD., October 04 2018 08:18:31 PM ET
[2018-10-04] MEDS ORDERED: LEVAQUIN 500MG/100ML 500 MG/100 ML BAG IV ONE (20:33)
--- NOTE | 2018-10-04 21:52 | Cat Scan Report ---
PROCEDURE: CT ABDOMEN PELVIS W CON TECHNIQUE: Computerized axial tomography of the abdomen and pelvis was performed after the IV inject ion of iodinated nonionic contrast. CT DOSE LENGTH PRODUCT: mGycm HISTORY: abd pain with possible GI bleed COMPARISONS: None . FINDINGS: Visualized lower thorax: There is a left pleural effusion.. Liver: The liver is enlarged and fatty.. Spleen: Normal size and attenuation. Gallbladder and biliary system: Normal. Pancreas: Normal. Adrenals: Normal. Kidneys: Normal. GI tract: There is no bowel obstruction or perforation. There is no colitis or enteritis. The append ix is normal. . Lymph nodes and mesentery: Normal. Vasculature: There is calcified plaque in the abdominal aorta. There is no aneurysm.. Bladder: Normal. Reproductive organs: Uterus is intact. Peritoneum: There is moderate ascites. There is no free air, abscess or adenopathy.. Musculoskeletal structures: No significant abnormality. Other: There is generalized subcutaneous edema. . IMPRESSION: There is a left pleural effusion.. The liver is enlarged and fatty.. There is no bowel obstruction or perforation. There is no colitis or enteritis. The appendix is leti l. . Uterus is intact. There is moderate ascites. There is no free air, abscess or adenopathy.. There is generalized subcutaneous edema. . . This document is electronically signed by Roderick Reinoso MD., October 04 2018 09:51:03 PM ET
[2018-10-04 22:18] LABS: Bacteria,Urine 2+ /HPF (Negative); Bilirubin,Urine NEG (Negative); Blood,Urine SM (Negative); Color,Urine Yellow (Yellow); Mucus,Urine 2+ /HPF; Urobilinogen,Urine < 2.0 mg/dL (<2.0)
[2018-10-04] MEDS ORDERED: CARDIZEM PO ONE (23:28)
--- NOTE | 2018-10-04 23:30 | History and Physical Report ---
History of Present Illness Date of examination: 10/04/18 History of present illness: 58-year-old woman with a history of hypertension, diabetes, atrial flutter COPD, coronary artery disease, CHF comes emergency room with complaints of PND, orthopnea, shortness of breath, wheezing . Patient has been tachycardic in the emergency room, rate 130s, status post steroids, magnesium, nebulize treatment. Also complaining of diarrhea 1 week, no recent antibiotic. While she was in the ER, an episode of diarrhea, she had blood on the tissue after wiping, however no blood in stool. Complaining of redness in the abdominal fold, status post treatment with antibiotic but areas not been cleared Review of systems Constitutional: no weight loss, chills, fever Ears, eyes, nose, mouth and throat: no nasal congestion, no nasal discharge, no sinus pressure, no vision change, no red eye. Neck: No neck pain or rigidity. Cardiovascular: no palpitations, chest pain Respiratory: no cough, + shortness of breath Gastrointestinal: no hematochezia, abdominal pain Genitourinary : no frequency , no hematuria Musculoskeletal: no joint swelling or muscle ache Integumentary: no rash, no pruritis Neurological: no parathesias, no focal weakness Endocrine: no cold or heat intolerance, no polyuria or polydipsia Hematologic/Lymphatic: no easy bruising, no easy bleeding, no gland swelling Allergic/Immunologic: no urticaria, no angioedema. PAST MEDICAL HISTORY:hypertension, diabetes, COPD, atrial flutter coronary artery disease, CHF PAST SURGICAL HISTORY: CABG, amputation of toes SOCIAL HISTORY:Smokes half pack a day, no alcohol or drugs FAMILY HISTORY: Hypertension Medications and Allergies Allergies Allergy/AdvReac Type Severity Reaction Status Date / Time Penicillins Allergy Itching Verified 04/03/18 12:43 Home Medications Medication Instructions Recorded Confirmed Last Taken Type ALPRAZolam [Xanax TAB] 1 mg PO Q6H PRN #24 tablet 09/07/18 10/04/18 Unknown Rx Apixaban [Eliquis] 5 mg PO Q12HR #60 tablet 09/07/18 10/04/18 Unknown Rx Aspirin [Aspirin BABY CHEW TAB] 81 mg PO DAILY #100 tab.chew 09/07/18 10/04/18 Unknown Rx AtorvaSTATin [Lipitor] 40 mg PO QHS #30 tablet 09/07/18 10/04/18 Unknown Rx Furosemide [Lasix TAB] 40 mg PO QDAY #30 tablet 09/07/18 10/04/18 Unknown Rx Gabapentin [Neurontin] 300 mg PO TID #90 capsule 09/07/18 10/04/18 Unknown Rx Insulin Glargine [Lantus VIAL] 20 units SUB-Q QHS #1 vial 09/07/18 10/04/18 Unknown Rx Ipratropium/Albuterol Sulfate 1 ampul IH QIDRT #120 ampul.neb 09/07/18 10/04/18 Unknown Rx [DUONEB *Not for PRN Use*] Lisinopril [Zestril TAB] 20 mg PO DAILY #30 tablet 09/07/18 10/04/18 Unknown Rx Lispro Insulin [Humalog] 5 unit SUB-Q ACHS #5 units 09/07/18 10/04/18 Unknown Rx Metoprolol [Lopressor TAB] 25 mg PO BID #60 tablet 09/07/18 10/04/18 Unknown Rx Zolpidem [Ambien] 5 mg PO QHS #15 tablet 09/07/18 10/04/18 Unknown Rx oxyCODONE /ACETAMINOPHEN [Percocet 1 tab PO Q4H PRN #18 tablet 09/07/18 10/04/18 Unknown Rx 5/325 mg] Active Meds: Active Medications Diltiazem HCl (Cardizem) 30 mg PO ONCE ONE Stop: 10/04/18 23:29 Exam - Physical Exam Narrative exam: General Apperance: The patient lying in bed, breathing comfortable HEENT: Normocephalic, atraumatic. Pupils equally round and reactive to light, EOMI, no sclericterus or JVD or thyromegaly or nodule. , no carotid bruit, mucous membranes moist, no exudate or erythema Heart: S1-S2, regular is rhythm Lungs: Crackles, wheezing bilaterally, breathing comfortable Abdomen: Positive erythema and a fold, Positive bowel sounds, soft, nontender, nondistended, no organomegaly Extremities: + edema up to knees, cyanosis clubbing Skin: LE wounds, no rash, nodule, warm and dry Neuro: cranial nerves 2-12 intact, speech is fluent, motor/sensory intact - Constitutional Vitals: Temp Pulse Resp BP Pulse Ox 98.4 F 139 H 17 120/75 96 04/06/19 19:06 10/04/18 22:30 10/04/18 22:30 10/04/18 22:30 10/04/18 22:10 Results - Labs CBC & Chem 7: 10/05/18 04:02 10/05/18 04:02 Labs: Abnormal lab results 10/04/18 10/04/18 10/04/18 Range/Units 19:05 19:05 Unknown MCH 26 L (28-32) pg RDW 22.2 H (13.2-15.2) % Seg Neutrophils % 78.1 H (40.0-70.0) % Potassium 5.1 H (3.6-5.0) mmol/L Chloride 111.1 H (98-107) mmol/L Carbon Dioxide 20 L (22-30) mmol/L Creatinine 0.5 L (0.7-1.2) mg/dL Glucose 190 H (65-100) mg/dL Calcium 7.9 L (8.4-10.2) mg/dL Alkaline Phosphatase 143 H (35-129) units/L Total Protein 6.1 L (6.3-8.2) g/dL Albumin 3.4 L (3.9-5) g/dL Ur Specific [place] 1.060 H (1.003-1.030) U Epithel Cells (Auto) 43.0 H (0-13.0) /HPF - Imaging and Cardiology EKG: image reviewed Chest x-ray: report reviewed CT scan - abdomen: report reviewed Assessment and Plan Assessment Acute on chronic systolic heart failure COPD exacerbation Atrial flutter with RVR Abdominal erythema, fungal diarrhea LE wounds Coronary artery disease Hypertension Diabetes2 Plan Start IV steroids now, nebulizer treatment, give a dose of cardizem Start IV Lasix, cardizem, continue lisinopril, aspirin, continue levaquin, Check cardiac enzymes, recent echo done, consult cardiology Check stool for studies, start nystatin cream One episode of blood on tissue most likely hemorrhoids Check fingersticks, initiate insulin sliding scale Continue appropriate outpatient medications DVT prophylaxis, consult wound care
[2018-10-04] MEDS ORDERED: PERCOCET 5/325 ONE (23:31)
[2018-10-04] MEDS ORDERED: CARDIZEM ONE (23:36)
[2018-10-04] MEDS: PERCOCET 5/325 PO PRN (23:40)
[2018-10-04] MEDS ORDERED: D50W (25GM) Syringe IV PRN (23:55)
[2018-10-04] MEDS ORDERED: TYLENOL PO PRN (23:55)
[2018-10-05] MEDS: ATROVENT IH SCH ×4 (01:41→19:35)
[2018-10-05] MEDS: SOLU-Medrol IV SCH ×4 (01:41→18:06)
[2018-10-05] MEDS: LASIX IV SCH ×3 (01:41→18:07)
[2018-10-05] MEDS ORDERED: LOPRESSOR IV ONE ×2 (04:48→04:55)
[2018-10-05 04:58] LABS: Basophils % (Auto) 0.3 % (0.0-1.8); Lymphocytes # (Auto) 0.7 K/mm3 (1.2-5.4); Lymphocytes % (Auto) 9.4 % (13.4-35.0); Mean Corpuscular HGB Conc 30 % (30-34); Mean Corpuscular Volume 84 fl (79-97); Monocytes # (Auto) 0.1 K/mm3 (0.0-0.8); Monocytes % (Auto) 1.1 % (0.0-7.3); Platelet Count 211 K/mm3 (140-440); Red Blood Count 4.94 M/mm3 (3.65-5.03)
[2018-10-05 05:11] LABS: Hematocrit 41.7 % (30.3-42.9); Hemoglobin 12.6 gm/dl (10.1-14.3); Red Cell Distribution Width 22.2 % (13.2-15.2)
[2018-10-05 05:25] LABS: BUN/Creatinine Ratio 27; Blood Urea Nitrogen 16 mg/dL (7-17); Calcium 8.2 mg/dL (8.4-10.2); Hemolysis Index 23
[2018-10-05] MEDS: PERCOCET 5/325 PO PRN ×3 (05:40→21:32)
[2018-10-05] MEDS ORDERED: CARDIZEM PO SCH (06:00)
--- NOTE | 2018-10-05 08:00 | Progress Note ---
Assessment and Plan Assessment and plan: 58F who pw PND, orthopnea, sob and wheezing PMH: htn, dm, aflutter, copd, cad, CHF CXR, 1V; shows small LLL opacity, effusion vs PNA? Diagnosis Acute on chronic systolic heart failure COPD exacerbation Atrial flutter with RVR hypercoaguable state Abdominal wall fungal infection of skin diarrhea Rectal bleeding- hemorrhoidal LE wounds Coronary artery disease Hypertension Diabetes2. Tobacco abuse GERD Past medical history of CAD status was CABG, ischemic cardiomyopathy with EF of 40% Severe pulmonary hypertension by echo abnormal cxr Reports R shoulder pain, fell 2 weeks ago BL LE lymphedema Plan IV lasix, cardiology consult, optimize meds -Steroids, nebs, nystatin cream for fungal rash stool studies, send stool for cdiff hg is stable, rectal bleeding likely hemorrhoidal, now resolved local wound care Optimize insulins -obtain 2v cxr -obtain R shoulder xray, pain meds dvt ppx- lovenox -last cigarette was 3 weeks ago, Patient was counseled greater than 10 minutes on tobacco cessation, nicotine patch is offered History Interval history: Review of systems Constitutional: No fevers, no malaise, no joint pains CVS: No chest pain, c orthopnea, no dyspnea on exertion, no pedal edema GI: No abdominal pain, no diarrhea, no vomiting, no constipation Respiratory: c/o sob, wheezing Hospitalist Physical - Physical exam Narrative exam: General.: Appears well, no distress, nontoxic, unkempt HEENT: Moist mucous membranes, extraocular muscles intact, no lymphadenopathy Neck: supple Cardiac: S1-S2 heard Lungs: wheezing and rales Abdomen: soft , nontender, nondistended, bowel sounds positive Extremities: edematous legs wrapped in unna boot Skin: fungal rash cw mycosis Neurologic: no gross focal deficits Psych: calm, and cooperative - Constitutional Vitals: Temp Pulse Resp BP Pulse Ox 98.4 F 130 H 16 107/67 97 10/04/18 19:06 10/05/18 06:32 10/05/18 06:15 10/05/18 06:32 10/05/18 06:15 Results - Labs CBC & Chem 7: 10/05/18 04:02 10/05/18 04:02 Labs: Laboratory Last Values WBC 7.0 K/mm3 (4.5-11.0) 10/05/18 04:02 RBC 4.94 M/mm3 (3.65-5.03) 10/05/18 04:02 Hgb 12.6 gm/dl (10.1-14.3) 10/05/18 04:02 Hct 41.7 % (30.3-42.9) 10/05/18 04:02 MCV 84 fl (79-97) 10/05/18 04:02 MCH 25 pg (28-32) L 10/05/18 04:02 MCHC 30 % (30-34) 10/05/18 04:02 RDW 22.2 % (13.2-15.2) H 10/05/18 04:02 Plt Count 211 K/mm3 (140-440) 10/05/18 04:02 Lymph % (Auto) 9.4 % (13.4-35.0) L 10/05/18 04:02 [place] % (Auto) 1.1 % (0.0-7.3) 10/05/18 04:02 Eos % (Auto) 0.0 % (0.0-4.3) 10/05/18 04:02 Baso % (Auto) 0.3 % (0.0-1.8) 10/05/18 04:02 Lymph # 0.7 K/mm3 (1.2-5.4) L 10/05/18 04:02 [place] # 0.1 K/mm3 (0.0-0.8) 10/05/18 04:02 Eos # 0.0 K/mm3 (0.0-0.4) 10/05/18 04:02 Baso # 0.0 K/mm3 (0.0-0.1) 10/05/18 04:02 Seg Neutrophils % 89.2 % (40.0-70.0) H 10/05/18 04:02 Seg Neutrophils # 6.3 K/mm3 (1.8-7.7) 10/05/18 04:02 POC ABG pH 7.343 (7.35-7.45) L 10/05/18 00:01 POC ABG pO2 90 (80-105) 10/05/18 00:01 POC ABG HCO3 16.0 (22-26 mml/L) 10/05/18 00:01 POC ABG Total CO2 17 (23-27mmol/L) 10/05/18 00:01 POC ABG O2 Sat 97 10/05/18 00:01 POC ABG Base Excess -10 ((-2) - (+3)mmol/L) 10/05/18 00:01 FiO2 28 % 10/05/18 00:01 Sodium 141 mmol/L (137-145) 10/05/18 04:02 Potassium 4.9 mmol/L (3.6-5.0) 10/05/18 04:02 Chloride 107.2 mmol/L (98-107) H 10/05/18 04:02 Carbon Dioxide 18 mmol/L (22-30) L 10/05/18 04:02 Anion Gap 21 mmol/L 10/05/18 04:02 BUN 16 mg/dL (7-17) 10/05/18 04:02 Creatinine 0.6 mg/dL (0.7-1.2) L 10/05/18 04:02 Estimated GFR > 60 ml/min 10/05/18 04:02 BUN/Creatinine Ratio 27 % 10/05/18 04:02 Glucose 214 mg/dL (65-100) H 10/05/18 04:02 Calcium 8.2 mg/dL (8.4-10.2) L 10/05/18 04:02 Total Bilirubin 1.00 mg/dL (0.1-1.2) 10/04/18 19:05 AST 27 units/L (5-40) 10/04/18 19:05 ALT 14 units/L (7-56) 10/04/18 19:05 Alkaline Phosphatase 143 units/L (35-129) H 10/04/18 19:05 Troponin T < 0.010 ng/mL (0.00-0.029) 10/04/18 19:05 Total Protein 6.1 g/dL (6.3-8.2) L 10/04/18 19:05 Albumin 3.4 g/dL (3.9-5) L 10/04/18 19:05 Albumin/Globulin Ratio 1.3 % 10/04/18 19:05 Urine Color Yellow (Yellow) 10/04/18 Unknown Urine Turbidity Slightly-cloudy (Clear) 10/04/18 Unknown Urine pH 5.0 (5.0-7.0) 10/04/18 Unknown Ur Specific [place] 1.060 (1.003-1.030) H 10/04/18 Unknown Urine Protein 30 mg/dl mg/dL (Negative) 10/04/18 Unknown Urine Glucose (UA) Neg mg/dL (Negative) 10/04/18 Unknown Urine Ketones Neg mg/dL (Negative) 10/04/18 Unknown Urine Blood Sm (Negative) 10/04/18 Unknown Urine Nitrite Neg (Negative) 10/04/18 Unknown Urine Bilirubin Neg (Negative) 10/04/18 Unknown Urine Urobilinogen < 2.0 mg/dL (<2.0) 10/04/18 Unknown Ur Leukocyte Esterase Tr (Negative) 10/04/18 Unknown Urine WBC (Auto) 4.0 /HPF (0.0-6.0) 10/04/18 Unknown Urine RBC (Auto) 9.0 /HPF (0.0-6.0) 10/04/18 Unknown U Epithel Cells (Auto) 43.0 /HPF (0-13.0) H 10/04/18 Unknown Urine Bacteria (Auto) 2+ /HPF (Negative) 10/04/18 Unknown Urine Mucus 2+ /HPF 10/04/18 Unknown Active Medications - Current Medications Current Medications: Generic Name Dose Route Start Last Admin Trade Name Freq PRN Reason Stop Dose Admin Acetaminophen 650 mg 10/04/18 23:55 Tylenol PO Q4H PRN Pain MILD(1-3)/Fever >100.5/MCLAUGHLIN Albuterol/Ipratropium 1 ampul 10/05/18 08:00 Duoneb *Not For Prn Use* IH QIDRT [facility] Alprazolam 1 mg 10/05/18 00:09 Xanax PO Q6H PRN Anxiety Apixaban 5 mg 10/05/18 10:00 Eliquis PO Q12HR [facility] Protocol Aspirin 81 mg 10/05/18 10:00 Baby Aspirin PO DAILY [facility] Atorvastatin Calcium 40 mg 10/05/18 22:00 Lipitor PO QHS [facility] Dextrose 50 ml 10/04/18 23:55 D50w (25gm) Syringe IV PRN PRN Hypoglycemia Enoxaparin Sodium 40 mg 10/05/18 22:00 Lovenox SUB-Q QDAY@2200 [facility] Furosemide 40 mg 10/05/18 07:50 Lasix IV 0600,1800 [facility] Gabapentin 300 mg 10/05/18 08:00 Neurontin PO TID [facility] Levofloxacin/Dextrose 500 mg in 100 mls @ 100 mls/hr 10/05/18 10:00 Levaquin 500mg/100ml IV Q24H [facility] Insulin Glargine 20 units 10/05/18 22:00 Lantus SUB-Q QHS [facility] Insulin Human Lispro 0 unit 10/05/18 07:30 Humalog SUB-Q ACHS [facility] Protocol Insulin Human Lispro 5 unit 10/05/18 11:30 Humalog SUB-Q ACHS [facility] Ipratropium [place] 0.5 mg 10/05/18 00:45 10/05/18 04:19 Atrovent IH 0.5 mg Q4HRT [facility] Administration Lisinopril 20 mg 10/05/18 10:00 Zestril PO DAILY [facility] Methylprednisolone Sodium Succinate 125 mg 10/05/18 00:00 10/05/18 06:33 Solu-Medrol IV 125 mg Q6HR [facility] Administration Metoprolol Tartrate 25 mg 10/05/18 10:00 Lopressor PO BID [facility] Nicotine 14 mg 10/05/18 10:00 Habitrol TD QDAY [facility] Nystatin 1 applic 10/05/18 08:00 Mycostatin TP TID [facility] Ondansetron HCl 4 mg 10/04/18 23:55 Zofran IV Q8H PRN Nausea And Vomiting Oxycodone/Acetaminophen 1 tab 10/04/18 23:55 10/05/18 05:40 Percocet 5/325 PO 1 tab Q6H PRN Administration Pain, Moderate (4-6) Sodium Chloride 10 ml 10/05/18 10:00 Sodium Chloride Flush Syringe 10 Ml IV BID [facility] Sodium Chloride 10 ml 10/04/18 23:55 Sodium Chloride Flush Syringe 10 Ml IV PRN PRN LINE FLUSH
[2018-10-05] MEDS: XANAX PO PRN ×2 (08:15→21:32)
--- NOTE | 2018-10-05 09:20 | XRay Report ---
PROCEDURE: XR CHEST ROUTINE 2V TECHNIQUE: AP and lateral chest radiographs HISTORY: sob COMPARISONS: 10/04/2018 FINDINGS: No mediastinal shift. Cardiomegaly. Overlying sternotomy wires. Bilateral pleural effusions and basil ar interstitial prominence. No pneumothorax or acute skeletal finding. IMPRESSION: Suggested sequela of heart failure are unchanged from 10/04/2018. Lower lung airspace disease could go undetected in this setting. This document is electronically signed by Ovidio Radford MD., October 05 2018 09:18:27 AM ET
[2018-10-05] MEDS ORDERED: NEURONTIN ONE (09:54)
[2018-10-05] MEDS: HumaLOG SUB-Q SCH ×7 (09:55→21:40)
[2018-10-05] MEDS ORDERED: HumaLOG SUB-Q ONE (09:58)
[2018-10-05] MEDS ORDERED: LOVENOX SUB-Q SCH ×2 (10:00→22:00)
[2018-10-05] MEDS: NEURONTIN PO SCH ×3 (10:00→21:32)
[2018-10-05] MEDS: DUONEB *Not for PRN Use IH SCH ×4 (11:24→20:35)
[2018-10-05] MEDS: LOPRESSOR PO SCH ×2 (11:34→21:40)
[2018-10-05] MEDS: BABY ASPIRIN PO SCH (11:34)
[2018-10-05] MEDS: ZESTRIL PO SCH (11:35)
[2018-10-05] MEDS: HABITROL TD SCH (11:35)
[2018-10-05] MEDS: LEVAQUIN 500MG/100ML 500 MG/100 ML BAG IV SCH (11:36)
[2018-10-05] MEDS: SODIUM CHLORIDE FLUSH SYRINGE 10 ML IV SCH ×2 (11:36→22:00)
--- NOTE | 2018-10-05 11:44 | XRay Report ---
PROCEDURE: XR SHOULDER 2+V RT TECHNIQUE: 4 views right shoulder HISTORY: shoulder pain COMPARISONS: Chest CT August 31, 2018 FINDINGS: Clavicle intact. Mild spurring AC joint. AC joint demonstrates normal alignment. Acute traumatic fracture involving the right humeral neck and head. Displaced bone fragment inferior to the glenoid. The glenoid and scapula appear intact. Widening of the acromiohumeral distance likely representing hemarthrosis. IMPRESSION: Acute traumatic fracture right humeral neck. This fracture was not present prior chest CT. This document is electronically signed by Romaine Varela MD., October 05 2018 11:42:35 AM ET
[2018-10-05] MEDS: ELIQUIS PO SCH ×2 (13:27→21:33)
[2018-10-05] MEDS: MYCOSTATIN TP SCH ×3 (13:27→21:33)
--- NOTE | 2018-10-05 13:41 | Consultation ---
History of Present Illness Consult reason: atrial fibrillation History of present illness: 58 year old female with a history of atrial fibrillation COPD hypertension and diabetes presented with shortness of breath wheezing. EKG shows atrial fibrillation with a rapid ventricular response patient also complaining about abdominal pains Past History Past Medical History: atrial fib, COPD, diabetes, hypertension, hyperlipidemia Medications and Allergies Allergies Allergy/AdvReac Type Severity Reaction Status Date / Time Penicillins Allergy Itching Verified 04/03/18 12:43 Home Medications Medication Instructions Recorded Confirmed Last Taken Type ALPRAZolam [Xanax TAB] 1 mg PO Q6H PRN #24 tablet 09/07/18 10/04/18 Unknown Rx Apixaban [Eliquis] 5 mg PO Q12HR #60 tablet 09/07/18 10/04/18 Unknown Rx Aspirin [Aspirin BABY CHEW TAB] 81 mg PO DAILY #100 tab.chew 09/07/18 10/04/18 Unknown Rx AtorvaSTATin [Lipitor] 40 mg PO QHS #30 tablet 09/07/18 10/04/18 Unknown Rx Furosemide [Lasix TAB] 40 mg PO QDAY #30 tablet 09/07/18 10/04/18 Unknown Rx Gabapentin [Neurontin] 300 mg PO TID #90 capsule 09/07/18 10/04/18 Unknown Rx Insulin Glargine [Lantus VIAL] 20 units SUB-Q QHS #1 vial 09/07/18 10/04/18 Unknown Rx Ipratropium/Albuterol Sulfate 1 ampul IH QIDRT #120 ampul.neb 09/07/18 10/04/18 Unknown Rx [DUONEB *Not for PRN Use*] Lisinopril [Zestril TAB] 20 mg PO DAILY #30 tablet 09/07/18 10/04/18 Unknown Rx Lispro Insulin [Humalog] 5 unit SUB-Q ACHS #5 units 09/07/18 10/04/18 Unknown Rx Metoprolol [Lopressor TAB] 25 mg PO BID #60 tablet 09/07/18 10/04/18 Unknown Rx Zolpidem [Ambien] 5 mg PO QHS #15 tablet 09/07/18 10/04/18 Unknown Rx oxyCODONE /ACETAMINOPHEN [Percocet 1 tab PO Q4H PRN #18 tablet 09/07/18 10/04/18 Unknown Rx 5/325 mg] Active Meds: Active Medications Acetaminophen (Tylenol) 650 mg PO Q4H PRN PRN Reason: Pain MILD(1-3)/Fever >100.5/MCLAUGHLIN Albuterol/Ipratropium (Duoneb *Not For Prn Use*) 1 ampul IH QIDRT [facility] Last Admin: 10/05/18 11:24 Dose: Not Given Documented by: Alprazolam (Xanax) 1 mg PO Q6H PRN PRN Reason: Anxiety Last Admin: 10/05/18 08:15 Dose: 1 mg Documented by: Apixaban (Eliquis) 5 mg PO Q12HR [facility]; Protocol Last Admin: 10/05/18 13:27 Dose: Not Given Documented by: Aspirin (Baby Aspirin) 81 mg PO DAILY [facility] Last Admin: 10/05/18 11:34 Dose: 81 mg Documented by: Atorvastatin Calcium (Lipitor) 40 mg PO QHS [facility] Dextrose (D50w (25gm) Syringe) 50 ml IV PRN PRN PRN Reason: Hypoglycemia Furosemide (Lasix) 40 mg IV 0600,1800 [facility] Gabapentin (Neurontin) 300 mg PO TID [facility] Last Admin: 10/05/18 13:20 Dose: 300 mg Documented by: Levofloxacin/Dextrose (Levaquin 500mg/100ml) 500 mg in 100 mls @ 100 mls/hr IV Q24H [facility] Last Admin: 10/05/18 11:36 Dose: 100 mls/hr Documented by: Insulin Glargine (Lantus) 20 units SUB-Q QHS [facility] Insulin Human Lispro (Humalog) 0 unit SUB-Q [facility]; Protocol Last Admin: 10/05/18 13:20 Dose: 6 unit Documented by: Insulin Human Lispro (Humalog) 5 unit SUB-Q [facility] Last Admin: 10/05/18 13:20 Dose: 5 unit Documented by: Lisinopril (Zestril) 20 mg PO DAILY [facility] Last Admin: 10/05/18 11:35 Dose: 20 mg Documented by: Methylprednisolone Sodium Succinate (Solu-Medrol) 125 mg IV Q6HR [facility] Last Admin: 10/05/18 11:34 Dose: 125 mg Documented by: Metoprolol Tartrate (Lopressor) 25 mg PO BID [facility] Last Admin: 10/05/18 11:34 Dose: 25 mg Documented by: Nicotine (Habitrol) 14 mg TD QDAY [facility] Last Admin: 10/05/18 11:35 Dose: 14 mg Documented by: Nystatin (Mycostatin) 1 applic TP TID [facility] Last Admin: 10/05/18 13:27 Dose: Not Given Documented by: Ondansetron HCl (Zofran) 4 mg IV Q8H PRN PRN Reason: Nausea And Vomiting Oxycodone/Acetaminophen (Percocet 5/325) 2 tab PO Q6H PRN PRN Reason: Pain, Moderate (4-6) Last Admin: 10/05/18 11:39 Dose: 2 tab Documented by: Sodium Chloride (Sodium Chloride Flush Syringe 10 Ml) 10 ml IV BID [facility] Last Admin: 10/05/18 11:36 Dose: 10 ml Documented by: Sodium Chloride (Sodium Chloride Flush Syringe 10 Ml) 10 ml IV PRN PRN PRN Reason: LINE FLUSH Review of Systems Constitutional: anorexia, fatigue, weakness, no weight loss, no weight gain, no fever Ears, nose, mouth and throat: no deferred, no ear pain, no ear discharge, no tinnitis, no bleeding gums, no dental pain, no mouth pain Cardiovascular: orthopnea, shortness of breath, dyspnea on exertion, no chest pain, no syncope, no lightheadedness Respiratory: wheezing, no cough, no cough with sputum, no excessive sputum Gastrointestinal: abdominal pain, nausea, no vomiting, no diarrhea, no constipation, no melena, no hematochezia Genitourinary Female: no pelvic pain Menstruation: no currently menstrual, no premenarcheal Musculoskeletal: leg numbness/tingling, no neck stiffness, no neck pain, no low back pain, no myalgias Integumentary: no rash, no pruritis, no redness Neurological: no head injury, no paralysis, no weakness, no parathesias, no numbness, no headaches, no migraines Psychiatric: no anxiety, no memory loss Endocrine: no cold intolerance, no heat intolerance, no polyphagia, no excessive thirst, no polydipsia, no polyuria, no nocturia Physical Examination Vital Signs Temp Pulse Resp BP Pulse Ox 98.4 F 140 H 18 115/74 95 10/04/18 19:06 10/04/18 19:06 10/04/18 19:06 10/04/18 19:06 10/04/18 19:06 General appearance: no acute distress, obese HEENT: Positive: PERRL, Normocephaly, Sinus Tenderness Neck: Positive: neck supple, trachea midline Cardiac: Positive: irregularly irregular, S1/S2, PMI, Laterally Displaced. Negative: S3 Lungs: Positive: clear to auscultation, Wheezes, Rhonchi Neuro: Positive: Grossly Intact Abdomen: Positive: Unremarkable, Soft, Active Bowel Sounds Extremities: Absent: edema Results 10/05/18 04:02 10/05/18 04:02 Cardiac Enzymes 10/04/18 Range/Units 19:05 AST 27 (5-40) units/L CBC 10/04/18 10/05/18 Range/Units 19:05 04:02 WBC 8.1 7.0 (4.5-11.0) K/mm3 RBC 4.84 4.94 (3.65-5.03) M/mm3 Hgb 12.5 12.6 (10.1-14.3) gm/dl Hct 40.2 41.7 (30.3-42.9) % Plt Count 211 211 (140-440) K/mm3 Lymph # 1.2 0.7 L (1.2-5.4) K/mm3 [place] # 0.5 0.1 (0.0-0.8) K/mm3 Eos # 0.0 0.0 (0.0-0.4) K/mm3 Baso # 0.1 0.0 (0.0-0.1) K/mm3 Comprehensive Metabolic Panel 10/04/18 10/05/18 Range/Units 19:05 04:02 Sodium 143 141 (137-145) mmol/L Potassium 5.1 H 4.9 (3.6-5.0) mmol/L Chloride 111.1 H 107.2 H (98-107) mmol/L Carbon Dioxide 20 L 18 L (22-30) mmol/L BUN 16 16 (7-17) mg/dL Creatinine 0.5 L 0.6 L (0.7-1.2) mg/dL Glucose 190 H 214 H (65-100) mg/dL Calcium 7.9 L 8.2 L (8.4-10.2) mg/dL AST 27 (5-40) units/L ALT 14 (7-56) units/L Alkaline Phosphatase 143 H (35-129) units/L Total Protein 6.1 L (6.3-8.2) g/dL Albumin 3.4 L (3.9-5) g/dL EKG interpretations - Telemetry EKG Rhythm: Atrial Fibrillation Assessment and Plan 1. Atrial fibrillation with rapid ventricular response 2. Chronic obstructive pulmonary disease 3. Type 2 diabetes mellitus 4. Essential hypertension 5. Abdominal pain with enteritis and diarrhea Plan. Patient's started on a Cardizem drip to continue with anticoagulation and GI consult. The pain review previous echocardiogram.
[2018-10-05] MEDS: LANTUS SUB-Q SCH (21:33)
[2018-10-06] MEDS: SOLU-Medrol IV SCH ×4 (01:59→17:09)
[2018-10-06] MEDS: PERCOCET 5/325 PO PRN ×4 (03:42→21:21)
[2018-10-06] MEDS: ZOFRAN IV PRN ×3 (06:37→21:28)
[2018-10-06] MEDS: SODIUM CHLORIDE FLUSH SYRINGE 10 ML IV PRN (06:37)
[2018-10-06] MEDS: LASIX IV SCH ×2 (06:37→17:09)
[2018-10-06] MEDS: DUONEB *Not for PRN Use IH SCH ×4 (07:33→19:39)
[2018-10-06] MEDS: XANAX PO PRN ×2 (08:37→15:00)
[2018-10-06] MEDS: HumaLOG SUB-Q SCH ×8 (08:39→21:14)
[2018-10-06] MEDS: MYCOSTATIN TP SCH ×3 (08:39→21:15)
[2018-10-06] MEDS: NEURONTIN PO SCH ×3 (08:40→20:35)
[2018-10-06] MEDS: ELIQUIS PO SCH ×2 (10:04→21:14)
[2018-10-06] MEDS: HABITROL TD SCH (10:05)
[2018-10-06] MEDS: LOPRESSOR PO SCH ×2 (10:05→20:32)
[2018-10-06] MEDS: LEVAQUIN 500MG/100ML 500 MG/100 ML BAG IV SCH (10:05)
[2018-10-06] MEDS: BABY ASPIRIN PO SCH (10:05)
[2018-10-06] MEDS: SODIUM CHLORIDE FLUSH SYRINGE 10 ML IV SCH ×2 (10:05→21:11)
[2018-10-06] MEDS: ZESTRIL PO SCH (10:06)
--- NOTE | 2018-10-06 12:58 | Progress Note ---
Assessment and Plan Assessment and plan: 58F who pw PND, orthopnea, sob and wheezing PMH: htn, dm, aflutter, copd, cad, CHF CXR, 1V; shows small LLL opacity, effusion vs PNA? Diagnosis Acute on chronic systolic heart failure COPD exacerbation Atrial flutter with RVR hypercoaguable state Abdominal wall fungal infection of skin diarrhea- likely acute viral gastroenteritis Rectal bleeding- hemorrhoidal LE wounds Coronary artery disease Hypertension Diabetes2. Tobacco abuse GERD Past medical history of CAD status was CABG, ischemic cardiomyopathy with EF of 40% Severe pulmonary hypertension by echo abnormal cxr Reports R shoulder pain, fell 2 weeks ago BL LE lymphedema Plan IV lasix, cardiology consult, optimize meds -Steroids, nebs, nystatin cream for fungal rash stool studies, send stool for cdiff hg is stable, rectal bleeding likely hemorrhoidal, now resolved, diarrhea now rsolved local wound care Optimize insulins -obtain 2v cxr -obtain R shoulder xray, pain meds dvt ppx- lovenox -last cigarette was 3 weeks ago, Patient was counseled greater than 10 minutes on tobacco cessation, nicotine patch is offered History Interval history: Review of systems Constitutional: No fevers, no malaise, no joint pains CVS: No chest pain, c orthopnea, no dyspnea on exertion, no pedal edema GI: No abdominal pain, no diarrhea, no vomiting, no constipation Respiratory: c/o sob, wheezing Hospitalist Physical - Physical exam Narrative exam: General.: Appears well, no distress, nontoxic, unkempt HEENT: Moist mucous membranes, extraocular muscles intact, no lymphadenopathy Neck: supple Cardiac: S1-S2 heard Lungs: wheezing and rales Abdomen: soft , nontender, nondistended, bowel sounds positive Extremities: edematous legs wrapped in unna boot Skin: fungal rash cw mycosis Neurologic: no gross focal deficits Psych: calm, and cooperative - Constitutional Vitals: Temp Pulse Resp BP Pulse Ox 98.0 F 105 H 16 96/48 93 10/06/18 04:00 10/06/18 12:16 10/06/18 12:16 10/06/18 12:16 10/06/18 12:16 General appearance: Present: no acute distress, obese Results - Labs CBC & Chem 7: 10/05/18 04:02 10/05/18 04:02 Labs: Laboratory Last Values WBC 7.0 K/mm3 (4.5-11.0) 10/05/18 04:02 RBC 4.94 M/mm3 (3.65-5.03) 10/05/18 04:02 Hgb 12.6 gm/dl (10.1-14.3) 10/05/18 04:02 Hct 41.7 % (30.3-42.9) 10/05/18 04:02 MCV 84 fl (79-97) 10/05/18 04:02 MCH 25 pg (28-32) L 10/05/18 04:02 MCHC 30 % (30-34) 10/05/18 04:02 RDW 22.2 % (13.2-15.2) H 10/05/18 04:02 Plt Count 211 K/mm3 (140-440) 10/05/18 04:02 Lymph % (Auto) 9.4 % (13.4-35.0) L 10/05/18 04:02 [place] % (Auto) 1.1 % (0.0-7.3) 10/05/18 04:02 Eos % (Auto) 0.0 % (0.0-4.3) 10/05/18 04:02 Baso % (Auto) 0.3 % (0.0-1.8) 10/05/18 04:02 Lymph # 0.7 K/mm3 (1.2-5.4) L 10/05/18 04:02 [place] # 0.1 K/mm3 (0.0-0.8) 10/05/18 04:02 Eos # 0.0 K/mm3 (0.0-0.4) 10/05/18 04:02 Baso # 0.0 K/mm3 (0.0-0.1) 10/05/18 04:02 Seg Neutrophils % 89.2 % (40.0-70.0) H 10/05/18 04:02 Seg Neutrophils # 6.3 K/mm3 (1.8-7.7) 10/05/18 04:02 POC ABG pH 7.343 (7.35-7.45) L 10/05/18 00:01 POC ABG pO2 90 (80-105) 10/05/18 00:01 POC ABG HCO3 16.0 (22-26 mml/L) 10/05/18 00:01 POC ABG Total CO2 17 (23-27mmol/L) 10/05/18 00:01 POC ABG O2 Sat 97 10/05/18 00:01 POC ABG Base Excess -10 ((-2) - (+3)mmol/L) 10/05/18 00:01 FiO2 28 % 10/05/18 00:01 Sodium 141 mmol/L (137-145) 10/05/18 04:02 Potassium 4.9 mmol/L (3.6-5.0) 10/05/18 04:02 Chloride 107.2 mmol/L (98-107) H 10/05/18 04:02 Carbon Dioxide 18 mmol/L (22-30) L 10/05/18 04:02 Anion Gap 21 mmol/L 10/05/18 04:02 BUN 16 mg/dL (7-17) 10/05/18 04:02 Creatinine 0.6 mg/dL (0.7-1.2) L 10/05/18 04:02 Estimated GFR > 60 ml/min 10/05/18 04:02 BUN/Creatinine Ratio 27 % 10/05/18 04:02 Glucose 214 mg/dL (65-100) H 10/05/18 04:02 POC Glucose 156 (70-105) H 10/06/18 12:14 Calcium 8.2 mg/dL (8.4-10.2) L 10/05/18 04:02 Total Bilirubin 1.00 mg/dL (0.1-1.2) 10/04/18 19:05 AST 27 units/L (5-40) 10/04/18 19:05 ALT 14 units/L (7-56) 10/04/18 19:05 Alkaline Phosphatase 143 units/L (35-129) H 10/04/18 19:05 Troponin T < 0.010 ng/mL (0.00-0.029) 10/04/18 19:05 Total Protein 6.1 g/dL (6.3-8.2) L 10/04/18 19:05 Albumin 3.4 g/dL (3.9-5) L 10/04/18 19:05 Albumin/Globulin Ratio 1.3 % 10/04/18 19:05 Urine Color Yellow (Yellow) 10/04/18 Unknown Urine Turbidity Slightly-cloudy (Clear) 10/04/18 Unknown Urine pH 5.0 (5.0-7.0) 10/04/18 Unknown Ur Specific [place] 1.060 (1.003-1.030) H 10/04/18 Unknown Urine Protein 30 mg/dl mg/dL (Negative) 10/04/18 Unknown Urine Glucose (UA) Neg mg/dL (Negative) 10/04/18 Unknown Urine Ketones Neg mg/dL (Negative) 10/04/18 Unknown Urine Blood Sm (Negative) 10/04/18 Unknown Urine Nitrite Neg (Negative) 10/04/18 Unknown Urine Bilirubin Neg (Negative) 10/04/18 Unknown Urine Urobilinogen < 2.0 mg/dL (<2.0) 10/04/18 Unknown Ur Leukocyte Esterase Tr (Negative) 10/04/18 Unknown Urine WBC (Auto) 4.0 /HPF (0.0-6.0) 10/04/18 Unknown Urine RBC (Auto) 9.0 /HPF (0.0-6.0) 10/04/18 Unknown U Epithel Cells (Auto) 43.0 /HPF (0-13.0) H 10/04/18 Unknown Urine Bacteria (Auto) 2+ /HPF (Negative) 10/04/18 Unknown Urine Mucus 2+ /HPF 10/04/18 Unknown Active Medications - Current Medications Current Medications: Generic Name Dose Route Start Last Admin Trade Name Freq PRN Reason Stop Dose Admin Acetaminophen 650 mg 10/04/18 23:55 Tylenol PO Q4H PRN Pain MILD(1-3)/Fever >100.5/MCLAUGHLIN Albuterol/Ipratropium 1 ampul 10/05/18 08:00 10/06/18 12:02 Duoneb *Not For Prn Use* IH 1 ampul QIDRT [facility] Administration Alprazolam 1 mg 10/05/18 00:09 10/06/18 08:37 Xanax PO 1 mg Q6H PRN Administration Anxiety Apixaban 5 mg 10/05/18 10:00 10/06/18 10:04 Eliquis PO 5 mg Q12HR [facility] Administration Protocol Aspirin 81 mg 10/05/18 10:00 10/06/18 10:05 Baby Aspirin PO 81 mg DAILY [facility] Administration Atorvastatin Calcium 40 mg 10/05/18 22:00 10/05/18 21:32 Lipitor PO 40 mg QHS [facility] Administration Dextrose 50 ml 10/04/18 23:55 D50w (25gm) Syringe IV PRN PRN Hypoglycemia Furosemide 40 mg 10/05/18 07:50 10/06/18 06:37 Lasix IV 40 mg 0600,1800 [facility] Administration Gabapentin 300 mg 10/05/18 08:00 10/06/18 08:40 Neurontin PO 300 mg TID [facility] Administration Levofloxacin/Dextrose 500 mg in 100 mls @ 100 mls/hr 10/05/18 10:00 10/06/18 10:05 Levaquin 500mg/100ml IV 100 mls/hr Q24H [facility] Administration Insulin Glargine 20 units 10/05/18 22:00 10/05/18 21:33 Lantus SUB-Q 20 units QHS [facility] Administration Insulin Human Lispro 0 unit 10/05/18 07:30 10/06/18 12:25 Humalog SUB-Q 3 unit [facility] Administration Protocol Insulin Human Lispro 5 unit 10/05/18 11:30 10/06/18 12:26 Humalog SUB-Q 5 unit [facility] Administration Lisinopril 20 mg 10/05/18 10:00 10/06/18 10:06 Zestril PO Not Given DAILY [facility] Methylprednisolone Sodium Succinate 125 mg 10/05/18 00:00 10/06/18 12:25 Solu-Medrol IV 125 mg Q6HR [facility] Administration Metoprolol Tartrate 25 mg 10/05/18 10:00 10/06/18 10:05 Lopressor PO 25 mg BID [facility] Administration Nicotine 14 mg 10/05/18 10:00 10/06/18 10:05 Habitrol TD 14 mg QDAY [facility] Administration Nystatin 1 applic 10/05/18 08:00 10/06/18 08:39 Mycostatin TP Not Given TID [facility] Ondansetron HCl 4 mg 10/04/18 23:55 10/06/18 06:37 Zofran IV 4 mg Q8H PRN Administration Nausea And Vomiting Oxycodone/Acetaminophen 2 tab 10/05/18 10:49 10/06/18 08:36 Percocet 5/325 PO 2 tab Q6H PRN Administration Pain, Moderate (4-6) Sodium Chloride 10 ml 10/05/18 10:00 10/06/18 10:05 Sodium Chloride Flush Syringe 10 Ml IV 10 ml BID [facility] Administration Sodium Chloride 10 ml 10/04/18 23:55 10/06/18 06:37 Sodium Chloride Flush Syringe 10 Ml IV 10 ml PRN PRN Administration LINE FLUSH
[2018-10-06] MEDS ORDERED: LOPRESSOR IV PRN (19:02)
--- NOTE | 2018-10-06 19:08 | Progress Note ---
Assessment and Plan - Patient Problems (1) Ischemic cardiomyopathy Current Visit: Yes Status: Acute Plan to address problem: Medical therapy for coronary disease and ischemic cardiomyopathy, including afterload agents, statin and beta blockers. (2) Atrial flutter Current Visit: No Status: Acute Plan to address problem: Atrial fibrillation rate control with metoprolol, and digoxin. Subjective Date of service: 10/06/18 Interval history: Patient is comfortable, in no acute distress. On the cafeteria monitor, she has atrial flutter with rapid ventricular rate of 136. Blood pressure is stable. Patient has a history of coronary artery disease, three-way coronary artery bypass in 2013, ischemic cardiomyopathy with left ventricular ejection fraction 30-35%. She has paroxysmal atrial fibrillation, on oral anticoagulation with Eliquis. Comorbidities include COPD, cor pulmonale with severe pulmonary hypertension, systemic hypertension and diabetes. Her major complaint on this presentation was shortness of breath, but chest x-ray shows a small left pleural effusion but no interstitial edema and no heart failure. Objective Vital Signs Temp Pulse Pulse Resp Resp BP Pulse Ox 10/06/18 18:00 133 H 13 106/64 96 10/06/18 17:00 126 H 14 97/56 96 10/06/18 16:25 123 H 20 10/06/18 16:14 114 H 20 10/06/18 16:00 97.7 F 126 H 13 106/68 95 10/06/18 15:00 112 H 17 98/62 96 10/06/18 14:00 102 H 10 L 97/44 96 10/06/18 13:00 105 H 15 99/56 95 10/06/18 12:16 105 H 16 96/48 93 10/06/18 12:03 112 H 18 10/06/18 12:00 97.5 F L 97 H 15 96/48 96 10/06/18 11:50 108 H 18 10/06/18 11:46 96 H 10 L 85/53 95 10/06/18 11:30 93 H 10 L 85/53 94 10/06/18 11:16 98 H 14 85/53 96 10/06/18 11:00 111 H 15 79/36 96 10/06/18 10:46 94 H 10 L 90/56 96 10/06/18 10:30 101 H 14 90/56 96 10/06/18 10:05 101 H 90/56 10/06/18 10:00 110 H 18 90/56 95 10/06/18 09:30 144 H 15 102/58 95 10/06/18 09:16 142 H 21 47/30 96 10/06/18 09:00 118 H 14 47/30 95 10/06/18 08:46 100 H 11 L 95/66 94 10/06/18 08:30 77 15 95/66 94 10/06/18 08:16 119 H 10 L 95/66 96 10/06/18 08:00 97.4 F L 133 H 21 95/66 96 10/06/18 07:46 119 H 18 150/96 97 10/06/18 07:38 132 H 18 10/06/18 07:30 131 H 127 H 13 18 150/96 97 10/06/18 07:16 103 H 13 150/96 97 10/06/18 07:00 122 H 15 150/96 97 10/06/18 06:00 118 H 13 150/96 93 10/06/18 05:00 111 H 12 150/96 97 10/06/18 04:03 15 10/06/18 04:00 98.0 F 121 H 13 111/72 94 10/06/18 03:00 90 11 L 111/72 96 10/06/18 02:00 89 11 L 111/72 96 10/06/18 01:00 92 H 12 111/72 96 10/06/18 00:50 20 10/06/18 00:07 103 H 17 111/72 96 10/06/18 00:00 98.4 F 96 H 15 102/72 96 10/05/18 23:00 82 12 102/72 95 10/05/18 22:00 90 13 102/72 96 10/05/18 21:40 102/72 10/05/18 21:00 104 H 14 102/72 96 10/05/18 20:52 102 H 15 10/05/18 20:41 97 10/05/18 20:38 119 H 18 10/05/18 20:00 97.9 F 114 H 20 102/72 97 - Physical Examination General: No Apparent Distress HEENT: Positive: PERRL, Normocephaly, Sinus Tenderness Neck: Positive: neck supple, trachea midline Cardiac: Positive: irregularly irregular Lungs: Positive: Decreased Breath Sounds Neuro: Positive: Grossly Intact Abdomen: Positive: Unremarkable, Soft, Active Bowel Sounds Skin: Positive: Clear Extremities: Absent: edema - Imaging and Cardiology EKG: image reviewed
[2018-10-06] MEDS: LANOXIN IV SCH (20:32)
[2018-10-06] MEDS: REMERON PO SCH (21:11)
[2018-10-06] MEDS: LANTUS SUB-Q SCH (21:12)
[2018-10-06] MEDS: ATIVAN PO PRN (21:21)
[2018-10-06] MEDS ORDERED: DILAUDID IV PRN (22:28)
[2018-10-07] MEDS: SOLU-Medrol IV SCH ×4 (00:06→17:48)
[2018-10-07] MEDS: LOPRESSOR PO SCH ×5 (01:00→22:23)
[2018-10-07] MEDS: LASIX IV SCH ×2 (06:38→17:49)
[2018-10-07] MEDS: DUONEB *Not for PRN Use IH SCH ×4 (08:30→20:08)
[2018-10-07] MEDS: BABY ASPIRIN PO SCH (09:32)
[2018-10-07] MEDS: ZESTRIL PO SCH (09:32)
[2018-10-07] MEDS: NEURONTIN PO SCH ×3 (09:32→20:22)
[2018-10-07] MEDS: ELIQUIS PO SCH ×2 (09:33→22:19)
[2018-10-07] MEDS: HABITROL TD SCH (09:34)
[2018-10-07] MEDS: HumaLOG SUB-Q SCH ×8 (09:35→22:21)
[2018-10-07] MEDS: SODIUM CHLORIDE FLUSH SYRINGE 10 ML IV SCH ×2 (09:35→22:18)
--- NOTE | 2018-10-07 11:53 | Progress Note ---
Assessment and Plan Acute on chronic respiratory failure Multi-factorial including right heart failure, COPD and tobacco abuse Hyperkalemia Persistent Atrial fib/flutter rate control with metoprolol and digoxin on eliquis for oral anticoagulation therapy Ischemic cardiomyopathy with EF 30-35% CAD s/p 3v CABG in 2014 Cor Pulmonale COPD Severe pulmonary hypertension Htn DM PAD s/p TMA Chronic non-compliance with medical therapy and medical follow up Conservative cardiac management. Subjective Date of service: 10/07/18 Interval history: Patient is resting in bed comfortably. Objective Vital Signs Temp Pulse Pulse Pulse Resp Resp Resp 10/07/18 09:33 116 H 10/07/18 09:32 112 H 10/07/18 08:34 10/07/18 08:31 108 H 102 H 16 16 10/07/18 08:00 97.6 F 10/07/18 06:00 117 H 11 L 10/07/18 05:00 118 H 12 10/07/18 04:00 98.0 F 120 H 11 L 10/07/18 03:00 112 H 11 L 10/07/18 02:00 129 H 12 10/07/18 01:00 119 H 12 10/07/18 00:00 97.6 F 118 H 12 10/06/18 23:00 122 H 12 10/06/18 22:00 109 H 11 L 10/06/18 21:00 91 H 10 L 10/06/18 20:32 101 H 10/06/18 20:12 112 H 11 L 10/06/18 20:10 98.2 F 10/06/18 20:00 118 H 23 10/06/18 19:51 111 H 21 10/06/18 19:40 10/06/18 19:39 113 H 15 10/06/18 19:00 117 H 13 10/06/18 18:00 133 H 13 10/06/18 17:00 126 H 14 10/06/18 16:25 123 H 20 10/06/18 16:14 114 H 20 10/06/18 16:00 97.7 F 126 H 13 10/06/18 15:00 112 H 17 10/06/18 14:00 102 H 10 L 10/06/18 13:00 105 H 15 10/06/18 12:16 105 H 16 10/06/18 12:03 112 H 18 10/06/18 12:00 97.5 F L 97 H 15 BP Pulse Ox 10/07/18 09:33 120/61 10/07/18 09:32 120/61 10/07/18 08:34 96 10/07/18 08:31 10/07/18 08:00 10/07/18 06:00 107/66 96 10/07/18 05:00 94/61 96 10/07/18 04:00 94/61 96 10/07/18 03:00 109/55 96 10/07/18 02:00 114/79 96 10/07/18 01:00 114/78 97 10/07/18 00:00 108/61 99 10/06/18 23:00 107/50 97 10/06/18 22:00 98/58 97 10/06/18 21:00 88/49 95 10/06/18 20:32 10/06/18 20:12 92/37 95 10/06/18 20:10 10/06/18 20:00 92/37 96 10/06/18 19:51 10/06/18 19:40 98 10/06/18 19:39 10/06/18 19:00 92/37 96 10/06/18 18:00 106/64 96 10/06/18 17:00 97/56 96 10/06/18 16:25 10/06/18 16:14 10/06/18 16:00 106/68 95 10/06/18 15:00 98/62 96 10/06/18 14:00 97/44 96 10/06/18 13:00 99/56 95 10/06/18 12:16 96/48 93 10/06/18 12:03 10/06/18 12:00 96/48 96 - Physical Examination General: No Apparent Distress HEENT: Positive: PERRL Neck: Positive: trachea midline Cardiac: Positive: irregularly irregular Neuro: Positive: Grossly Intact Extremities: Absent: edema
[2018-10-07] MEDS: MYCOSTATIN TP SCH ×3 (12:10→22:19)
[2018-10-07] MEDS: PERCOCET 5/325 PO PRN ×2 (12:10→18:57)
[2018-10-07] MEDS: LEVAQUIN 500MG/100ML 500 MG/100 ML BAG IV SCH (12:10)
--- NOTE | 2018-10-07 12:12 | Progress Note ---
Assessment and Plan Assessment and plan: 58F who pw PND, orthopnea, sob and wheezing PMH: htn, dm, aflutter, copd, cad, CHF CXR, 2V; chf R shoulder x-ray; R humeral neck fracture Diagnosis Acute on chronic systolic heart failure COPD exacerbation Atrial flutter with RVR hypercoaguable state Abdominal wall fungal infection of skin diarrhea- likely acute viral gastroenteritis; now resolved Rectal bleeding- hemorrhoidal, now resolved LE wounds Coronary artery disease Hypertension Diabetes2. Tobacco abuse GERD Past medical history of CAD status was CABG, ischemic cardiomyopathy with EF of 40% Severe pulmonary hypertension by echo R humeral neck fracture BL LE lymphedema anxiety and depression Plan IV lasix, cardiology consult, optimize meds -Steroids, nebs, nystatin cream for fungal rash diarrhea resolved without any specific intervention hg is stable, rectal bleeding likely hemorrhoidal, now resolved, diarrhea now resolved local wound care Optimize insulins -R arm fracture; immobilize RUE, pain meds and ortho consult pending dvt ppx- lovenox -last cigarette was 3 weeks ago, Patient was counseled greater than 10 minutes on tobacco cessation, nicotine patch prn ativan prn anxiety, MH consult pending History Interval history: c/o R shoulder pain anxiety and depression is improved Review of systems Constitutional: No fevers, no malaise, no joint pains CVS: No chest pain, c orthopnea, no dyspnea on exertion, no pedal edema GI: No abdominal pain, no diarrhea, no vomiting, no constipation Respiratory: sob, wheezing are improved Hospitalist Physical - Physical exam Narrative exam: General.: Appears well, no distress, nontoxic, unkempt HEENT: Moist mucous membranes, extraocular muscles intact, no lymphadenopathy Neck: supple Cardiac: S1-S2 heard Lungs: wheezing and rales Abdomen: soft , nontender, nondistended, bowel sounds positive Extremities: edematous legs wrapped in unna boot Skin: fungal rash cw mycosis Neurologic: no gross focal deficits Psych: calm, and cooperative - Constitutional Vitals: Temp Pulse Resp BP Pulse Ox 98.6 F 116 H 16 120/61 96 10/07/18 11:59 10/07/18 09:33 10/07/18 08:31 10/07/18 09:33 10/07/18 08:34 General appearance: Present: no acute distress, obese Results - Labs CBC & Chem 7: 10/05/18 04:02 10/05/18 04:02 Labs: Laboratory Last Values WBC 7.0 K/mm3 (4.5-11.0) 10/05/18 04:02 RBC 4.94 M/mm3 (3.65-5.03) 10/05/18 04:02 Hgb 12.6 gm/dl (10.1-14.3) 10/05/18 04:02 Hct 41.7 % (30.3-42.9) 10/05/18 04:02 MCV 84 fl (79-97) 10/05/18 04:02 MCH 25 pg (28-32) L 10/05/18 04:02 MCHC 30 % (30-34) 10/05/18 04:02 RDW 22.2 % (13.2-15.2) H 10/05/18 04:02 Plt Count 211 K/mm3 (140-440) 10/05/18 04:02 Lymph % (Auto) 9.4 % (13.4-35.0) L 10/05/18 04:02 [place] % (Auto) 1.1 % (0.0-7.3) 10/05/18 04:02 Eos % (Auto) 0.0 % (0.0-4.3) 10/05/18 04:02 Baso % (Auto) 0.3 % (0.0-1.8) 10/05/18 04:02 Lymph # 0.7 K/mm3 (1.2-5.4) L 10/05/18 04:02 [place] # 0.1 K/mm3 (0.0-0.8) 10/05/18 04:02 Eos # 0.0 K/mm3 (0.0-0.4) 10/05/18 04:02 Baso # 0.0 K/mm3 (0.0-0.1) 10/05/18 04:02 Seg Neutrophils % 89.2 % (40.0-70.0) H 10/05/18 04:02 Seg Neutrophils # 6.3 K/mm3 (1.8-7.7) 10/05/18 04:02 POC ABG pH 7.343 (7.35-7.45) L 10/05/18 00:01 POC ABG pO2 90 (80-105) 10/05/18 00:01 POC ABG HCO3 16.0 (22-26 mml/L) 10/05/18 00:01 POC ABG Total CO2 17 (23-27mmol/L) 10/05/18 00:01 POC ABG O2 Sat 97 10/05/18 00:01 POC ABG Base Excess -10 ((-2) - (+3)mmol/L) 10/05/18 00:01 FiO2 28 % 10/05/18 00:01 Sodium 141 mmol/L (137-145) 10/05/18 04:02 Potassium 4.9 mmol/L (3.6-5.0) 10/05/18 04:02 Chloride 107.2 mmol/L (98-107) H 10/05/18 04:02 Carbon Dioxide 18 mmol/L (22-30) L 10/05/18 04:02 Anion Gap 21 mmol/L 10/05/18 04:02 BUN 16 mg/dL (7-17) 10/05/18 04:02 Creatinine 0.6 mg/dL (0.7-1.2) L 10/05/18 04:02 Estimated GFR > 60 ml/min 10/05/18 04:02 BUN/Creatinine Ratio 27 % 10/05/18 04:02 Glucose 214 mg/dL (65-100) H 10/05/18 04:02 POC Glucose 166 (70-105) H 10/07/18 11:47 Calcium 8.2 mg/dL (8.4-10.2) L 10/05/18 04:02 Total Bilirubin 1.00 mg/dL (0.1-1.2) 10/04/18 19:05 AST 27 units/L (5-40) 10/04/18 19:05 ALT 14 units/L (7-56) 10/04/18 19:05 Alkaline Phosphatase 143 units/L (35-129) H 10/04/18 19:05 Troponin T < 0.010 ng/mL (0.00-0.029) 10/04/18 19:05 Total Protein 6.1 g/dL (6.3-8.2) L 10/04/18 19:05 Albumin 3.4 g/dL (3.9-5) L 10/04/18 19:05 Albumin/Globulin Ratio 1.3 % 10/04/18 19:05 Urine Color Yellow (Yellow) 10/04/18 Unknown Urine Turbidity Slightly-cloudy (Clear) 10/04/18 Unknown Urine pH 5.0 (5.0-7.0) 10/04/18 Unknown Ur Specific [place] 1.060 (1.003-1.030) H 10/04/18 Unknown Urine Protein 30 mg/dl mg/dL (Negative) 10/04/18 Unknown Urine Glucose (UA) Neg mg/dL (Negative) 10/04/18 Unknown Urine Ketones Neg mg/dL (Negative) 10/04/18 Unknown Urine Blood Sm (Negative) 10/04/18 Unknown Urine Nitrite Neg (Negative) 10/04/18 Unknown Urine Bilirubin Neg (Negative) 10/04/18 Unknown Urine Urobilinogen < 2.0 mg/dL (<2.0) 10/04/18 Unknown Ur Leukocyte Esterase Tr (Negative) 10/04/18 Unknown Urine WBC (Auto) 4.0 /HPF (0.0-6.0) 10/04/18 Unknown Urine RBC (Auto) 9.0 /HPF (0.0-6.0) 10/04/18 Unknown U Epithel Cells (Auto) 43.0 /HPF (0-13.0) H 10/04/18 Unknown Urine Bacteria (Auto) 2+ /HPF (Negative) 10/04/18 Unknown Urine Mucus 2+ /HPF 10/04/18 Unknown Active Medications - Current Medications Current Medications: Generic Name Dose Route Start Last Admin Trade Name Freq PRN Reason Stop Dose Admin Acetaminophen 650 mg 10/04/18 23:55 Tylenol PO Q4H PRN Pain MILD(1-3)/Fever >100.5/MCLAUGHLIN Albuterol/Ipratropium 1 ampul 10/05/18 08:00 10/07/18 08:30 Duoneb *Not For Prn Use* IH 1 ampul QIDRT LUZ Administration Apixaban 5 mg 10/05/18 10:00 10/07/18 09:33 Eliquis PO 5 mg Q12HR LUZ Administration Protocol Aspirin 81 mg 10/05/18 10:00 10/07/18 09:32 Baby Aspirin PO 81 mg DAILY LUZ Administration Atorvastatin Calcium 40 mg 10/05/18 22:00 10/06/18 21:11 Lipitor PO 40 mg QHS LUZ Administration Dextrose 50 ml 10/04/18 23:55 D50w (25gm) Syringe IV PRN PRN Hypoglycemia Digoxin 0.125 mg 10/07/18 17:00 Lanoxin PO DAILY@1700 LUZ Furosemide 40 mg 10/05/18 07:50 10/07/18 06:38 Lasix IV 40 mg 0600,1800 LUZ Administration Gabapentin 300 mg 10/05/18 08:00 10/07/18 09:32 Neurontin PO 300 mg TID [facility] Administration Hydromorphone HCl 0.5 mg 10/06/18 22:28 Dilaudid IV Q3H PRN Pain , Severe (7-10) Levofloxacin/Dextrose 500 mg in 100 mls @ 100 mls/hr 10/05/18 10:00 10/06/18 10:05 Levaquin 500mg/100ml IV 100 mls/hr Q24H LUZ Administration Insulin Glargine 20 units 10/05/18 22:00 10/06/18 21:12 Lantus SUB-Q 20 units QHS [facility] Administration Insulin Human Lispro 0 unit 10/05/18 07:30 10/07/18 09:35 Humalog SUB-Q Not Given [facility] Protocol Insulin Human Lispro 5 unit 10/05/18 11:30 10/07/18 09:35 Humalog SUB-Q Not Given [facility] Lisinopril 20 mg 10/05/18 10:00 10/07/18 09:32 Zestril PO 20 mg DAILY [facility] Administration Lorazepam 1 mg 10/06/18 15:25 10/06/18 21:21 Ativan PO 1 mg Q4H PRN Administration Anxiety Methylprednisolone Sodium Succinate 125 mg 10/05/18 00:00 10/07/18 06:38 Solu-Medrol IV 125 mg Q6HR [facility] Administration Metoprolol Tartrate 25 mg 10/06/18 19:00 10/07/18 09:33 Lopressor PO 25 mg Q6H LUZ Administration Metoprolol Tartrate 2.5 mg 10/06/18 19:02 Lopressor IV Q6HR PRN HR>130 Mirtazapine 15 mg 10/06/18 22:00 10/06/18 21:11 Remeron PO 15 mg QHS [facility] Administration Nicotine 14 mg 10/05/18 10:00 10/07/18 09:34 Habitrol TD 14 mg QDAY LUZ Administration Nystatin 1 applic 10/05/18 08:00 10/06/18 21:15 Mycostatin TP Not Given TID LUZ Ondansetron HCl 4 mg 10/04/18 23:55 10/06/18 21:28 Zofran IV 4 mg Q8H PRN Administration Nausea And Vomiting Oxycodone/Acetaminophen 2 tab 10/05/18 10:49 10/06/18 21:21 Percocet 5/325 PO 2 tab Q6H PRN Administration Pain, Moderate (4-6) Sodium Chloride 10 ml 10/05/18 10:00 10/07/18 09:35 Sodium Chloride Flush Syringe 10 Ml IV 10 ml BID LUZ Administration Sodium Chloride 10 ml 10/04/18 23:55 10/06/18 06:37 Sodium Chloride Flush Syringe 10 Ml IV 10 ml PRN PRN Administration LINE FLUSH Nutrition/Malnutrition Assess - Dietary Evaluation Nutrition/Malnutrition Findings: Nutrition Notes Start: 10/06/18 15:12 Freq: Status: Active Protocol: Document 10/06/18 15:12 [facility] (Rec: 10/06/18 15:18 [facility] [id number]) Nutrition Notes 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 She says appetite is "okay". Reports no swallowing/chewing difficulty, but c/o constipation (last BM was 10/04) . She did not eat lunch today . Burn Absent Trauma Absent #1 Nutrition Diagnosis Predicted suboptimal energy intake Etiology decreased appetite, constipation As Evidenced by Signs and Symptoms pt did not eat lunch today Is patient on ventilator? No Is Patient Ambulatory and/or Out of Bed No REE-([place]-confined to bed) 1827.096 Kcal/Kg value to use for calculation 13 Approximate Energy Requirements Using 1356 kcal/Kg Calculation Used for Recommendations Kcal/kg Additional Notes Pro needs 0.8-1g/kg adjBW: 59- 74g/day Fluid needs per MD. Nutrition Intervention Change Diet Order: Continue current diet order Goal #1 PO intakes to meet at least 75 % of energy and pro needs Goal #2 Improved bowel function Follow-Up By: 10/09/18 Additional Comments F/U: intakes, constipation
[2018-10-07] MEDS: LANOXIN PO SCH (16:29)
--- NOTE | 2018-10-07 16:49 | Consultation ---
History of Present Illness - HPI Consult date: 10/07/18 Consult reason: fracture History of present illness: 58-year-old female who complains of right shoulder pain as well as swelling patient states she fell over alkalosis 3 weeks ago she was seen at a another hospital and told to follow-up with orthopedics.Patient is admitted now for a unrelated musculoskeletal issue as to evaluate patient's right shoulder or proximal humerus fracture Past History Past Medical History: atrial fib, COPD, diabetes, hypertension, hyperlipidemia Medications and Allergies Allergies Allergy/AdvReac Type Severity Reaction Status Date / Time Penicillins Allergy Itching Verified 04/03/18 12:43 Home Medications Medication Instructions Recorded Confirmed Last Taken Type ALPRAZolam [Xanax TAB] 1 mg PO Q6H PRN #24 tablet 09/07/18 10/04/18 Unknown Rx Apixaban [Eliquis] 5 mg PO Q12HR #60 tablet 09/07/18 10/04/18 Unknown Rx Aspirin [Aspirin BABY CHEW TAB] 81 mg PO DAILY #100 tab.chew 09/07/18 10/04/18 Unknown Rx AtorvaSTATin [Lipitor] 40 mg PO QHS #30 tablet 09/07/18 10/04/18 Unknown Rx Furosemide [Lasix TAB] 40 mg PO QDAY #30 tablet 09/07/18 10/04/18 Unknown Rx Gabapentin [Neurontin] 300 mg PO TID #90 capsule 09/07/18 10/04/18 Unknown Rx Insulin Glargine [Lantus VIAL] 20 units SUB-Q QHS #1 vial 09/07/18 10/04/18 Unknown Rx Ipratropium/Albuterol Sulfate 1 ampul IH QIDRT #120 ampul.neb 09/07/18 10/04/18 Unknown Rx [DUONEB *Not for PRN Use*] Lisinopril [Zestril TAB] 20 mg PO DAILY #30 tablet 09/07/18 10/04/18 Unknown Rx Lispro Insulin [Humalog] 5 unit SUB-Q ACHS #5 units 09/07/18 10/04/18 Unknown Rx Metoprolol [Lopressor TAB] 25 mg PO BID #60 tablet 09/07/18 10/04/18 Unknown Rx Zolpidem [Ambien] 5 mg PO QHS #15 tablet 09/07/18 10/04/18 Unknown Rx oxyCODONE /ACETAMINOPHEN [Percocet 1 tab PO Q4H PRN #18 tablet 09/07/18 10/04/18 Unknown Rx 5/325 mg] Active Meds: Active Medications Acetaminophen (Tylenol) 650 mg PO Q4H PRN PRN Reason: Pain MILD(1-3)/Fever >100.5/[place]CL[place]HLIN Albuterol/Ipratropium (Duoneb *Not For Prn Use*) 1 ampul IH QIDRT [facility] Last Admin: 10/07/18 15:43 Dose: 1 ampul Documented by: Apixaban (Eliquis) 5 mg PO Q12HR [facility]; Protocol Last Admin: 10/07/18 09:33 Dose: 5 mg Documented by: Aspirin (Baby Aspirin) 81 mg PO DAILY [facility] Last Admin: 10/07/18 09:32 Dose: 81 mg Documented by: Atorvastatin Calcium (Lipitor) 40 mg PO QHS [facility] Last Admin: 10/06/18 21:11 Dose: 40 mg Documented by: Dextrose (D50w (25gm) Syringe) 50 ml IV PRN PRN PRN Reason: Hypoglycemia Digoxin (Lanoxin) 0.125 mg PO DAILY@1700 [facility] Last Admin: 10/07/18 16:29 Dose: 0.125 mg Documented by: Furosemide (Lasix) 40 mg IV 0600,1800 [facility] Last Admin: 10/07/18 06:38 Dose: 40 mg Documented by: Gabapentin (Neurontin) 300 mg PO TID [facility] Last Admin: 10/07/18 13:22 Dose: 300 mg Documented by: Hydromorphone HCl (Dilaudid) 0.5 mg IV Q3H PRN PRN Reason: Pain , Severe (7-10) Levofloxacin/Dextrose (Levaquin 500mg/100ml) 500 mg in 100 mls @ 100 mls/hr IV Q24H [facility] Last Admin: 10/07/18 12:10 Dose: 100 mls/hr Documented by: Insulin Glargine (Lantus) 20 units SUB-Q QHS [facility] Last Admin: 10/06/18 21:12 Dose: 20 units Documented by: Insulin Human Lispro (Humalog) 0 unit SUB-Q [facility]; Protocol Last Admin: 10/07/18 16:29 Dose: Not Given Documented by: Insulin Human Lispro (Humalog) 5 unit SUB-Q [facility] Last Admin: 10/07/18 16:30 Dose: 5 unit Documented by: Lisinopril (Zestril) 20 mg PO DAILY [facility] Last Admin: 10/07/18 09:32 Dose: 20 mg Documented by: Lorazepam (Ativan) 1 mg PO Q4H PRN PRN Reason: Anxiety Last Admin: 10/06/18 21:21 Dose: 1 mg Documented by: Methylprednisolone Sodium Succinate (Solu-Medrol) 125 mg IV Q6HR [facility] Last Admin: 10/07/18 12:10 Dose: 125 mg Documented by: Metoprolol Tartrate (Lopressor) 2.5 mg IV Q6HR PRN PRN Reason: HR>130 Metoprolol Tartrate (Lopressor) 50 mg PO Q8H [facility] Last Admin: 10/07/18 16:28 Dose: 50 mg Documented by: Mirtazapine (Remeron) 15 mg PO QHS [facility] Last Admin: 10/06/18 21:11 Dose: 15 mg Documented by: Nicotine (Habitrol) 14 mg TD QDAY [facility] Last Admin: 10/07/18 09:34 Dose: 14 mg Documented by: Nystatin (Mycostatin) 1 applic TP TID [facility] Last Admin: 10/07/18 16:31 Dose: 1 applic Documented by: Ondansetron HCl (Zofran) 4 mg IV Q8H PRN PRN Reason: Nausea And Vomiting Last Admin: 10/06/18 21:28 Dose: 4 mg Documented by: Oxycodone/Acetaminophen (Percocet 5/325) 2 tab PO Q6H PRN PRN Reason: Pain, Moderate (4-6) Last Admin: 10/07/18 12:10 Dose: 2 tab Documented by: Sodium Chloride (Sodium Chloride Flush Syringe 10 Ml) 10 ml IV BID [facility] Last Admin: 10/07/18 09:35 Dose: 10 ml Documented by: Sodium Chloride (Sodium Chloride Flush Syringe 10 Ml) 10 ml IV PRN PRN PRN Reason: LINE FLUSH Last Admin: 10/06/18 06:37 Dose: 10 ml Documented by: Assessment and Plan 3-week-old right proximal humerus fracture overall alignment acceptable Recommend physical therapy for range of motion and strengthening exercises right shoulder
[2018-10-07] MEDS: LANOXIN IV SCH (16:59)
[2018-10-07] MEDS: ATIVAN PO PRN (20:22)
[2018-10-07] MEDS: REMERON PO SCH (22:19)
[2018-10-07] MEDS: LANTUS SUB-Q SCH (22:22)
[2018-10-08] MEDS: PERCOCET 5/325 PO PRN ×4 (00:12→18:47)
[2018-10-08] MEDS: SOLU-Medrol IV SCH ×4 (00:13→18:46)
[2018-10-08] MEDS: LASIX IV SCH ×2 (06:16→19:07)
[2018-10-08] MEDS: SODIUM CHLORIDE FLUSH SYRINGE 10 ML IV PRN (06:17)
[2018-10-08] MEDS: LOPRESSOR PO SCH ×2 (06:31→14:47)
[2018-10-08] MEDS: HumaLOG SUB-Q SCH ×8 (08:49→23:20)
[2018-10-08] MEDS: DUONEB *Not for PRN Use IH SCH ×4 (08:57→22:52)
[2018-10-08] MEDS: LEVAQUIN PO SCH (09:06)
[2018-10-08] MEDS: BABY ASPIRIN PO SCH (09:06)
[2018-10-08] MEDS: NEURONTIN PO SCH ×3 (09:06→22:51)
[2018-10-08] MEDS: ELIQUIS PO SCH ×2 (09:06→22:51)
[2018-10-08] MEDS: HABITROL TD SCH (09:06)
[2018-10-08] MEDS: SODIUM CHLORIDE FLUSH SYRINGE 10 ML IV SCH (09:11)
[2018-10-08] MEDS: ZESTRIL PO SCH (09:21)
[2018-10-08] MEDS: MYCOSTATIN TP SCH ×3 (09:24→20:00)
--- NOTE | 2018-10-08 09:40 | Progress Note ---
Assessment and Plan Acute on chronic respiratory failure Multi-factorial including right heart failure, COPD and tobacco abuse Hyperkalemia Right humerus fracture Persistent Atrial fib/flutter rate control with metoprolol and digoxin on eliquis for oral anticoagulation therapy Ischemic cardiomyopathy with EF 30-35% CAD s/p 3v CABG in 2014 Cor Pulmonale COPD Severe pulmonary hypertension Htn DM PAD s/p TMA Chronic non-compliance with medical therapy and medical follow up Conservative cardiac management. Subjective Date of service: 10/08/18 Interval history: Patient has no complaints. She reports her breathing is better. Objective Vital Signs Temp Pulse Pulse Pulse Pulse Resp Resp 10/08/18 09:21 106 H 10/08/18 01:52 10/08/18 01:12 18 10/08/18 00:30 97.9 F 91 H 10/08/18 00:00 94 H 14 10/07/18 23:29 100 H 15 10/07/18 23:00 92 H 13 10/07/18 22:23 92 H 10/07/18 22:00 92 H 16 10/07/18 21:00 92 H 14 10/07/18 20:03 92 H 10/07/18 20:00 97.8 F 92 H 15 10/07/18 19:01 93 H 19 10/07/18 18:01 112 H 14 10/07/18 17:00 100 H 12 10/07/18 16:29 103 H 10/07/18 16:28 103 H 10/07/18 16:00 111 H 99 H 15 10/07/18 15:44 114 H 110 H 16 10/07/18 15:00 109 H 13 10/07/18 14:01 108 H 14 10/07/18 13:22 138 H 10/07/18 13:00 112 H 12 10/07/18 12:47 110 H 111 H 16 10/07/18 12:00 113 H 99 H 13 10/07/18 11:59 98.6 F 10/07/18 11:00 123 H 12 10/07/18 10:00 99 H 12 Resp Resp BP BP Pulse Ox 10/08/18 09:21 154/96 10/08/18 01:52 18 10/08/18 01:12 10/08/18 00:30 94/62 10/08/18 00:00 102/63 96 10/07/18 23:29 127/78 96 10/07/18 23:00 127/78 95 10/07/18 22:23 116/66 10/07/18 22:00 114/66 89 10/07/18 21:00 114/64 90 10/07/18 20:03 10/07/18 20:00 98/48 91 10/07/18 19:01 97/71 92 10/07/18 18:01 97/56 92 10/07/18 17:00 97/56 88 10/07/18 16:29 87/54 10/07/18 16:28 10/07/18 16:00 134/98 92 10/07/18 15:44 16 10/07/18 15:00 134/98 91 10/07/18 14:01 128/88 92 10/07/18 13:22 119/79 10/07/18 13:00 119/79 90 10/07/18 12:47 16 10/07/18 12:00 101/73 88 10/07/18 11:59 10/07/18 11:00 120/71 88 10/07/18 10:00 120/71 86 - Physical Examination General: No Apparent Distress HEENT: Positive: PERRL Neck: Positive: trachea midline Cardiac: Positive: irregularly irregular Lungs: Positive: Decreased Breath Sounds, Wheezes Neuro: Positive: Grossly Intact Abdomen: Positive: Soft, Active Bowel Sounds Extremities: Absent: edema
[2018-10-08] MEDS: ATIVAN PO PRN ×4 (10:28→23:19)
--- NOTE | 2018-10-08 13:47 | Discharge Summary ---
Providers - Providers Date of Admission: 10/04/18 23:24 Attending physician: BRONSON JAIN MD 10/05/18 00:12 Consult to Physician [CONS] Routine Comment: Consulting Provider: YAEL CRUZ Physician Instructions: Reason For Exam: chf 10/05/18 00:13 Consult to Wound/ET Nurse [CONS] Routine Reason For Exam: wound eval 10/06/18 13:01 Physical Therapy Evaluation and Treat [CONS] Routine Comment: Reason For Exam: ataxia 10/06/18 15:25 Consult to Mental Health [CONS] Routine Reason For Exam: behavioral disturbance Place consult to:: [facility] Notified:: Phone number called:: [phone] Was contact made?: Yes If yes, spoke with:: shelby Time called:: 08:47 10/06/18 22:28 Consult to Physician [CONS] Routine Comment: Consulting Provider: CHARIS CRAIG Physician Instructions: Reason For Exam: R humeral fracture Primary care physician: CINTHIA FRANCO Hospitalization Condition: Stable Hospital course: 58F who pw PND, orthopnea, sob and wheezing PMH: htn, dm, aflutter, copd, cad, CHF CXR, 2V; chf R shoulder x-ray; R humeral neck fracture Diagnosis Acute on chronic systolic heart failure COPD exacerbation Atrial flutter with RVR hypercoaguable state Abdominal wall fungal infection of skin diarrhea- likely acute viral gastroenteritis; now resolved Rectal bleeding- hemorrhoidal, now resolved LE wounds Coronary artery disease Hypertension Diabetes2. Tobacco abuse GERD Past medical history of CAD status was CABG, ischemic cardiomyopathy with EF of 40% Severe pulmonary hypertension by echo R humeral neck fracture BL LE lymphedema anxiety and depression Hospital Course * CHF; received lasix IV, cardiac meds were optimized * COPD: received steroids, nebs, abx, and chest PT * Acute resp failure; received oxygen * fungal rash; rx with antifunagal rash * Diarrhea/rectal Bleeding; was self limited, resolved without any specific intervention, likely due to acute gastroenteritis, rectal bleed was likely hemorrhoidal in etiology * R arm fracture; seen by orthopedic surgery, conservative mgt recommended and outpatient fup in clinic, rx with pain meds * cigarette abuse; counseled on cessation and rx with nicotine patches. Her last cigarette was 2 weeks before admission to hospital * Anxiety/depression; rx anti-anxiety meds and depression Disposition: DC/TX-06 HOME UNDER HOME HL Time spent for discharge: 33 mins Core Measure Documentation - Palliative Care Palliative Care/ Comfort Measures: Not Applicable - Core Measures Any of the following diagnoses?: heart failure, none - Heart Failure Discharge Requirements JULIAN/ARB for LVSD if EF <40%: Not Applicable Beta jesús at discharge: Yes Exam - Constitutional Vitals: Temp Pulse Resp BP Pulse Ox 97.3 F L 106 H 20 111/57 97 10/08/18 11:36 10/08/18 12:27 10/08/18 12:27 10/08/18 11:36 10/08/18 11:36 General appearance: Present: no acute distress, well-nourished - EENT Eyes: Present: PERRL ENT: hearing intact, clear oral mucosa - Neck Neck: Present: supple, normal ROM - Respiratory Respiratory effort: normal Respiratory: bilateral: CTA - Cardiovascular Heart Sounds: Present: S1 & S2. Absent: rub, click - Extremities Extremities: pulses symmetrical, No edema Extremity abnormal: other (Decreased ROM R shoulder due to pain) Peripheral Pulses: within normal limits - Abdominal General gastrointestinal: Present: soft, non-tender, non-distended, normal bowel sounds Female genitourinary: Present: normal - Integumentary Integumentary: Present: clear, warm, dry - Musculoskeletal Musculoskeletal: gait normal, strength equal bilaterally - Psychiatric Psychiatric: appropriate mood/affect, intact judgment & insight - Neurologic Neurologic: CNII-XII intact, moves all extremities Plan Follow up with: CINTHIA FRANCO MD [Primary Care Provider] - 3-5 Days Prescriptions: Mirtazapine [Remeron] 15 mg PO QHS #30 tablet Fluticasone/Salmeterol [Advair 250-50 Diskus] 1 each IH BID #1 blst.w.dev LORazepam [Ativan] 1 mg PO Q4H PRN #14 tablet PRN Reason: Anxiety Nicotine [Habitrol] 14 mg TD QDAY #30 patch Digoxin [Lanoxin] 0.125 mg PO DAILY@1700 #30 tablet Furosemide [Lasix TAB] 40 mg PO BID #60 tablet levoFLOXacin [Levaquin TAB] 500 mg PO Q24HR #3 tablet Metoprolol [Lopressor TAB] 50 mg PO Q8H 30 Days tablet oxyCODONE /ACETAMINOPHEN [Percocet 5/325 mg] 2 tab PO Q6H PRN #20 tablet PRN Reason: Pain, Moderate (4-6) Prednisone [predniSONE 10 mg (6-Day Pack, 21 Tabs)] 10 mg PO .TAPER #1 tab.ds.pk Tiotropium [place] [Spiriva Respimat] 1 each IH DAILY #1 mist.inhal
--- NOTE | 2018-10-08 16:09 | Progress Note ---
Assessment and Plan Assessment and plan: 58F who pw PND, orthopnea, sob and wheezing PMH: htn, dm, aflutter, copd, cad, CHF CXR, 2V; chf R shoulder x-ray; R humeral neck fracture Diagnosis Acute on chronic systolic heart failure COPD exacerbation Atrial flutter with RVR hypercoaguable state Abdominal wall fungal infection of skin diarrhea- likely acute viral gastroenteritis; now resolved Rectal bleeding- hemorrhoidal, now resolved LE wounds Coronary artery disease Hypertension Diabetes2. Tobacco abuse GERD Past medical history of CAD status was CABG, ischemic cardiomyopathy with EF of 40% Severe pulmonary hypertension by echo R humeral neck fracture BL LE lymphedema anxiety and depression Plan IV lasix, cardiology consult, optimize meds -Steroids, nebs, nystatin cream for fungal rash diarrhea resolved without any specific intervention hg is stable, rectal bleeding likely hemorrhoidal, now resolved, diarrhea now resolved local wound care Optimize insulins -R arm fracture; immobilize RUE, pain meds and ortho consult appreciated, overall alignment acceptable, outpatient fup recommended, Home PT and OT ordered dvt ppx- lovenox -last cigarette was 3 weeks ago, Patient was counseled greater than 10 minutes on tobacco cessation, nicotine patch prn ativan prn anxiety, MH consult pending History Interval history: c/o R shoulder pain anxiety and depression is improved Review of systems Constitutional: No fevers, no malaise, no joint pains CVS: No chest pain, c orthopnea, no dyspnea on exertion, no pedal edema GI: No abdominal pain, no diarrhea, no vomiting, no constipation Respiratory: sob, wheezing are improved Hospitalist Physical - Physical exam Narrative exam: General.: Appears well, no distress, nontoxic, unkempt HEENT: Moist mucous membranes, extraocular muscles intact, no lymphadenopathy Neck: supple Cardiac: S1-S2 heard Lungs: wheezing and rales Abdomen: soft , nontender, nondistended, bowel sounds positive Extremities: edematous legs wrapped in unna boot, Decreased ROM in RUE, R shoulder is tender Skin: fungal rash cw mycosis Neurologic: no gross focal deficits Psych: calm, and cooperative - Constitutional Vitals: Temp Pulse Resp BP Pulse Ox 97.3 F L 78 20 126/72 97 10/08/18 11:36 10/08/18 14:47 10/08/18 12:27 10/08/18 14:47 10/08/18 11:36 General appearance: Present: no acute distress, well-nourished Results - Labs CBC & Chem 7: 10/05/18 04:02 10/05/18 04:02 Labs: Laboratory Last Values WBC 7.0 K/mm3 (4.5-11.0) 10/05/18 04:02 RBC 4.94 M/mm3 (3.65-5.03) 10/05/18 04:02 Hgb 12.6 gm/dl (10.1-14.3) 10/05/18 04:02 Hct 41.7 % (30.3-42.9) 10/05/18 04:02 MCV 84 fl (79-97) 10/05/18 04:02 MCH 25 pg (28-32) L 10/05/18 04:02 MCHC 30 % (30-34) 10/05/18 04:02 RDW 22.2 % (13.2-15.2) H 10/05/18 04:02 Plt Count 211 K/mm3 (140-440) 10/05/18 04:02 Lymph % (Auto) 9.4 % (13.4-35.0) L 10/05/18 04:02 [place] % (Auto) 1.1 % (0.0-7.3) 10/05/18 04:02 Eos % (Auto) 0.0 % (0.0-4.3) 10/05/18 04:02 Baso % (Auto) 0.3 % (0.0-1.8) 10/05/18 04:02 Lymph # 0.7 K/mm3 (1.2-5.4) L 10/05/18 04:02 [place] # 0.1 K/mm3 (0.0-0.8) 10/05/18 04:02 Eos # 0.0 K/mm3 (0.0-0.4) 10/05/18 04:02 Baso # 0.0 K/mm3 (0.0-0.1) 10/05/18 04:02 Seg Neutrophils % 89.2 % (40.0-70.0) H 10/05/18 04:02 Seg Neutrophils # 6.3 K/mm3 (1.8-7.7) 10/05/18 04:02 POC ABG pH 7.343 (7.35-7.45) L 10/05/18 00:01 POC ABG pO2 90 (80-105) 10/05/18 00:01 POC ABG HCO3 16.0 (22-26 mml/L) 10/05/18 00:01 POC ABG Total CO2 17 (23-27mmol/L) 10/05/18 00:01 POC ABG O2 Sat 97 10/05/18 00:01 POC ABG Base Excess -10 ((-2) - (+3)mmol/L) 10/05/18 00:01 FiO2 28 % 10/05/18 00:01 Sodium 141 mmol/L (137-145) 10/05/18 04:02 Potassium 4.9 mmol/L (3.6-5.0) 10/05/18 04:02 Chloride 107.2 mmol/L (98-107) H 10/05/18 04:02 Carbon Dioxide 18 mmol/L (22-30) L 10/05/18 04:02 Anion Gap 21 mmol/L 10/05/18 04:02 BUN 16 mg/dL (7-17) 10/05/18 04:02 Creatinine 0.6 mg/dL (0.7-1.2) L 10/05/18 04:02 Estimated GFR > 60 ml/min 10/05/18 04:02 BUN/Creatinine Ratio 27 % 10/05/18 04:02 Glucose 214 mg/dL (65-100) H 10/05/18 04:02 POC Glucose 185 (70-105) H 10/08/18 11:02 Calcium 8.2 mg/dL (8.4-10.2) L 10/05/18 04:02 Total Bilirubin 1.00 mg/dL (0.1-1.2) 10/04/18 19:05 AST 27 units/L (5-40) 10/04/18 19:05 ALT 14 units/L (7-56) 10/04/18 19:05 Alkaline Phosphatase 143 units/L (35-129) H 10/04/18 19:05 Troponin T < 0.010 ng/mL (0.00-0.029) 10/04/18 19:05 Total Protein 6.1 g/dL (6.3-8.2) L 10/04/18 19:05 Albumin 3.4 g/dL (3.9-5) L 10/04/18 19:05 Albumin/Globulin Ratio 1.3 % 10/04/18 19:05 Urine Color Yellow (Yellow) 10/04/18 Unknown Urine Turbidity Slightly-cloudy (Clear) 10/04/18 Unknown Urine pH 5.0 (5.0-7.0) 10/04/18 Unknown Ur Specific [place] 1.060 (1.003-1.030) H 10/04/18 Unknown Urine Protein 30 mg/dl mg/dL (Negative) 10/04/18 Unknown Urine Glucose (UA) Neg mg/dL (Negative) 10/04/18 Unknown Urine Ketones Neg mg/dL (Negative) 10/04/18 Unknown Urine Blood Sm (Negative) 10/04/18 Unknown Urine Nitrite Neg (Negative) 10/04/18 Unknown Urine Bilirubin Neg (Negative) 10/04/18 Unknown Urine Urobilinogen < 2.0 mg/dL (<2.0) 10/04/18 Unknown Ur Leukocyte Esterase Tr (Negative) 10/04/18 Unknown Urine WBC (Auto) 4.0 /HPF (0.0-6.0) 10/04/18 Unknown Urine RBC (Auto) 9.0 /HPF (0.0-6.0) 10/04/18 Unknown U Epithel Cells (Auto) 43.0 /HPF (0-13.0) H 10/04/18 Unknown Urine Bacteria (Auto) 2+ /HPF (Negative) 10/04/18 Unknown Urine Mucus 2+ /HPF 10/04/18 Unknown Active Medications - Current Medications Current Medications: Generic Name Dose Route Start Last Admin Trade Name Freq PRN Reason Stop Dose Admin Acetaminophen 650 mg 10/04/18 23:55 Tylenol PO Q4H PRN Pain MILD(1-3)/Fever >100.5/MCLAUGHLIN Albuterol/Ipratropium 1 ampul 10/05/18 08:00 10/08/18 12:18 Duoneb *Not For Prn Use* IH 1 ampul QIDRT LUZ Administration Apixaban 5 mg 10/05/18 10:00 10/08/18 09:06 Eliquis PO 5 mg Q12HR LUZ Administration Protocol Aspirin 81 mg 10/05/18 10:00 10/08/18 09:06 Baby Aspirin PO 81 mg DAILY LUZ Administration Atorvastatin Calcium 40 mg 10/05/18 22:00 10/07/18 22:18 Lipitor PO 40 mg QHS LUZ Administration Dextrose 50 ml 10/04/18 23:55 D50w (25gm) Syringe IV PRN PRN Hypoglycemia Digoxin 0.125 mg 10/07/18 17:00 10/07/18 16:29 Lanoxin PO 0.125 mg DAILY@1700 LUZ Administration Furosemide 40 mg 10/05/18 07:50 10/08/18 06:16 Lasix IV 40 mg 0600,1800 LZU Administration Gabapentin 300 mg 10/05/18 08:00 10/08/18 14:43 Neurontin PO 300 mg TID LUZ Administration Hydromorphone HCl 0.5 mg 10/06/18 22:28 10/08/18 09:11 Dilaudid IV 0.5 mg Q3H PRN Administration Pain , Severe (7-10) Insulin Glargine 20 units 10/05/18 22:00 10/07/18 22:22 Lantus SUB-Q 20 units QHS LUZ Administration Insulin Human Lispro 0 unit 10/05/18 07:30 10/08/18 12:44 Humalog SUB-Q 3 unit [facility] Administration Protocol Insulin Human Lispro 5 unit 10/05/18 11:30 10/08/18 12:44 Humalog SUB-Q 5 unit [facility] LUZ Administration Levofloxacin 500 mg 10/08/18 10:00 10/08/18 09:06 Levaquin PO 500 mg Q24HR LUZ Administration Lisinopril 20 mg 10/05/18 10:00 10/08/18 09:21 Zestril PO 20 mg DAILY LUZ Administration Lorazepam 1 mg 10/06/18 15:25 10/08/18 14:43 Ativan PO 1 mg Q4H PRN Administration Anxiety Methylprednisolone Sodium Succinate 125 mg 10/05/18 00:00 10/08/18 12:44 Solu-Medrol IV 125 mg Q6HR LUZ Administration Metoprolol Tartrate 2.5 mg 10/06/18 19:02 Lopressor IV Q6HR PRN HR>130 Metoprolol Tartrate 50 mg 10/07/18 15:00 10/08/18 14:47 Lopressor PO 50 mg Q8H LUZ Administration Mirtazapine 15 mg 10/06/18 22:00 10/07/18 22:19 Remeron PO 15 mg QHS LUZ Administration Nicotine 14 mg 10/05/18 10:00 10/08/18 09:06 Habitrol TD 14 mg QDAY LUZ Administration Nystatin 1 applic 10/05/18 08:00 10/08/18 14:44 Mycostatin TP 1 applic TID LUZ Administration Ondansetron HCl 4 mg 10/04/18 23:55 10/06/18 21:28 Zofran IV 4 mg Q8H PRN Administration Nausea And Vomiting Oxycodone/Acetaminophen 2 tab 10/05/18 10:49 10/08/18 12:44 Percocet 5/325 PO 2 tab Q6H PRN Administration Pain, Moderate (4-6) Sodium Chloride 10 ml 10/05/18 10:00 10/08/18 09:11 Sodium Chloride Flush Syringe 10 Ml IV 10 ml BID LUZ Administration Sodium Chloride 10 ml 10/04/18 23:55 10/08/18 06:17 Sodium Chloride Flush Syringe 10 Ml IV 10 ml PRN PRN Administration LINE FLUSH Nutrition/Malnutrition Assess - Dietary Evaluation Nutrition/Malnutrition Findings: Nutrition Notes Start: 10/06/18 15:12 Freq: Status: Active Protocol: Document 10/06/18 15:12 MALAIKA (Rec: 10/06/18 15:18 MALAIKA [email or web address]) Nutrition Notes 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 She says appetite is "okay". Reports no swallowing/chewing difficulty, but c/o constipation (last BM was 10/04) . She did not eat lunch today . Burn Absent Trauma Absent #1 Nutrition Diagnosis Predicted suboptimal energy intake Etiology decreased appetite, constipation As Evidenced by Signs and Symptoms pt did not eat lunch today Is patient on ventilator? No Is Patient Ambulatory and/or Out of Bed No [facility] 1827.096 Kcal/Kg value to use for calculation 13 Approximate Energy Requirements Using 1356 kcal/Kg Calculation Used for Recommendations Kcal/kg Additional Notes Pro needs 0.8-1g/kg adjBW: 59- 74g/day Fluid needs per MD. Nutrition Intervention Change Diet Order: Continue current diet order Goal #1 PO intakes to meet at least 75 % of energy and pro needs Goal #2 Improved bowel function Follow-Up By: 10/09/18 Additional Comments F/U: intakes, constipation
[2018-10-08] MEDS: LANOXIN PO SCH (18:46)
[2018-10-08] MEDS: LANTUS SUB-Q SCH (22:50)
[2018-10-08] MEDS: REMERON PO SCH (22:51)
[2018-10-09] MEDS: SOLU-Medrol IV SCH ×3 (00:40→13:16)
[2018-10-09] MEDS: PERCOCET 5/325 PO PRN ×2 (00:40→06:40)
[2018-10-09] MEDS: LOPRESSOR PO SCH ×2 (00:41→09:15)
[2018-10-09] MEDS: SODIUM CHLORIDE FLUSH SYRINGE 10 ML IV SCH (00:44)
[2018-10-09] MEDS: LASIX IV SCH (05:46)
[2018-10-09] MEDS: DUONEB *Not for PRN Use IH SCH ×2 (08:03→12:53)
[2018-10-09] MEDS: ATIVAN PO PRN (08:25)
[2018-10-09] MEDS: MYCOSTATIN TP SCH (08:26)
[2018-10-09] MEDS: NEURONTIN PO SCH (08:26)
[2018-10-09] MEDS: HumaLOG SUB-Q SCH ×4 (08:30→12:40)
--- NOTE | 2018-10-09 08:52 | Progress Note ---
Assessment and Plan Acute on chronic respiratory failure Multi-factorial including right heart failure, COPD and tobacco abuse Right humerus fracture Persistent Atrial fib/flutter rate control with metoprolol and digoxin on eliquis for oral anticoagulation therapy Ischemic cardiomyopathy with EF 30-35% CAD s/p 3v CABG in 2014 Cor Pul[place]ale COPD Severe pulmonary hypertension Htn DM PAD s/p TMA Chronic non-compliance with medical therapy and medical follow up Conservative cardiac management. Subjective Date of service: 10/09/18 Interval history: Patient has no complaints. For planned discharge home today. Objective Vital Signs Temp Pulse Pulse Pulse Pulse Resp Resp 10/09/18 08:14 94 H 20 10/09/18 08:07 10/09/18 08:03 94 H 20 10/09/18 05:24 97.4 F L 93 H 20 10/09/18 00:41 106 H 10/08/18 23:05 10/08/18 23:02 105 H 10/08/18 22:54 97.3 F L 106 H 20 10/08/18 22:52 102 H 10/08/18 22:00 106 H 20 10/08/18 17:17 94 H 10/08/18 17:11 85 10/08/18 17:02 98.2 F 91 H 18 10/08/18 14:47 78 10/08/18 12:27 106 H 10/08/18 12:18 104 H 10/08/18 11:36 97.3 F L 105 H 18 10/08/18 09:21 106 H 10/08/18 09:05 95 H 10/08/18 08:57 90 Resp BP Pulse Ox 10/09/18 08:14 10/09/18 08:07 98 10/09/18 08:03 10/09/18 05:24 131/76 100 10/09/18 00:41 120/72 10/08/18 23:05 96 10/08/18 23:02 18 10/08/18 22:54 120/72 92 10/08/18 22:52 18 10/08/18 22:00 92 10/08/18 17:17 20 10/08/18 17:11 20 10/08/18 17:02 110/65 95 10/08/18 14:47 126/72 10/08/18 12:27 20 10/08/18 12:18 20 10/08/18 11:36 111/57 97 10/08/18 09:21 154/96 10/08/18 09:05 20 10/08/18 08:57 18 97 - Physical Examination General: No Apparent Distress HEENT: Positive: PERRL Neck: Positive: trachea midline Cardiac: Positive: irregularly irregular Lungs: Positive: Decreased Breath Sounds, Wheezes Neuro: Positive: Grossly Intact Abdomen: Positive: Active Bowel Sounds
[2018-10-09] MEDS: ELIQUIS PO SCH (09:15)
[2018-10-09] MEDS: BABY ASPIRIN PO SCH (09:15)
[2018-10-09] MEDS: HABITROL TD SCH (09:15)
[2018-10-09] MEDS: LEVAQUIN PO SCH (09:15)
[2018-10-09 11:52] VITALS: BP 152/88
[2018-10-09] MEDS: ZESTRIL PO SCH (12:35)
--- NOTE | 2018-10-09 14:16 | Consultation ---
History of Present Illness - Reason for Consult Consult date: 10/09/18 Reason for consult: Mental Health Evaluation Requesting physician: BRONSON JAIN - Chief Complaint Chief complaint: "I have family issues" - History of Present Psychiatric Illness 58-year-old female with diabetes and COPD who presented to the ER for SOB. Psychiatry was consulted to the see the patient for behavioral d isturbances. Today the patient is calm and cooperative during the assessment. She stated that she had things she wanted to discuss reference her mental health. She stated that she have experienced the of her and son. She stated that her medical issues (diabetes) have been tough for her. She stated that she have to reside with her daughter because it's difficult for her to take care of herself. She stated that she was dx with depression by her PCP and was prescribed Prozac "some years ago." She stated that Prozac didn't "work" for her. She rate her depression 4/10, with 10 being worse. She denies SI/HI's and AVH's. She denies erratic sleep and a poor appetite. She denies recreational drug use and alcohol consumption (etoh). Medications and Allergies Allergies Allergy/AdvReac Type Severity Reaction Status Date / Time Penicillins Allergy Itching Verified 04/03/18 12:43 Home Medications Medication Instructions Recorded Confirmed Last Taken Type Apixaban [Eliquis] 5 mg PO Q12HR #60 tablet 09/07/18 10/04/18 Unknown Rx Aspirin [Aspirin BABY CHEW TAB] 81 mg PO DAILY #100 tab.chew 09/07/18 10/04/18 Unknown Rx AtorvaSTATin [Lipitor] 40 mg PO QHS #30 tablet 09/07/18 10/04/18 Unknown Rx Gabapentin [Neurontin] 300 mg PO TID #90 capsule 09/07/18 10/04/18 Unknown Rx Insulin Glargine [Lantus VIAL] 20 units SUB-Q QHS #1 vial 09/07/18 10/04/18 Unknown Rx Ipratropium/Albuterol Sulfate 1 ampul IH QIDRT #120 ampul.neb 09/07/18 10/04/18 Unknown Rx [DUONEB *Not for PRN Use*] Lisinopril [Zestril TAB] 20 mg PO DAILY #30 tablet 09/07/18 10/04/18 Unknown Rx Lispro Insulin [Humalog] 5 unit SUB-Q ACHS #5 units 09/07/18 10/04/18 Unknown Rx Digoxin [Lanoxin] 0.125 mg PO DAILY@1700 #30 tablet 10/08/18 Unknown Rx Fluticasone/Salmeterol [Advair 1 each IH BID #1 blst.w.dev 10/08/18 Unknown Rx 250-50 Diskus] Furosemide [Lasix TAB] 40 mg PO BID #60 tablet 10/08/18 Unknown Rx LORazepam [Ativan] 1 mg PO Q4H PRN #14 tablet 10/08/18 Unknown Rx Metoprolol [Lopressor TAB] 50 mg PO Q8H 30 Days tablet 10/08/18 Unknown Rx Mirtazapine [Remeron] 15 mg PO QHS #30 tablet 10/08/18 Unknown Rx Nicotine [Habitrol] 14 mg TD QDAY #30 patch 10/08/18 Unknown Rx Prednisone [predniSONE 10 mg 10 mg PO .TAPER #1 tab.ds.pk 10/08/18 Unknown Rx (6-Day Pack, 21 Tabs)] Tiotropium [place] [Spiriva 1 each IH DAILY #1 mist.inhal 10/08/18 Unknown Rx Respimat] levoFLOXacin [Levaquin TAB] 500 mg PO Q24HR #3 tablet 10/08/18 Unknown Rx oxyCODONE /ACETAMINOPHEN [Percocet 2 tab PO Q6H PRN #20 tablet 10/08/18 Unknown Rx 5/325 mg] Past psychiatric history - Past Medical History Past Medical History: other (Right Shoulder injury) Past Surgical History: Other (Left Foot amputation) - Social History Social history: lives with family Mental Status Exam - Vital signs Last Vital Signs Temp 98.9 F 10/09/18 11:51 Pulse 98 H 10/09/18 11:51 Resp 22 10/09/18 11:51 BP 152/88 10/09/18 11:51 Pulse Ox 94 10/09/18 11:51 - Exam Narrative exam: MSE: Appearance: calm, cooperative Behavior: regular eye contact Speech: regular rate and tone Mood: "okay" Affect: congruent to mood Thought Process: linear Thought Content: denies SI/HI's and AVH's Motor Activity: sitting up in the bed Cognition: A/O x 3 Insight: appropriate Judgment: appropriate Results Result Diagrams: 10/05/18 04:02 10/05/18 04:02 Abnormal lab results 10/08/18 10/08/18 10/09/18 Range/Units 16:37 21:17 07:47 POC Glucose 223 H 282 H 220 H (70-105) 10/09/18 Range/Units 11:54 POC Glucose 233 H (70-105) All other labs normal. Assessment and Plan Assessment and plan: Impression: MDD. Today the patient was calm and cooperative during the assessment. DDx: Adjustment DO Recommendation/Plan: The patient was discharged before a outpatient referral could be given to the her. The patient takes Remeron for depression as a home medication. She stated that she took Prozac in the psst that wasn't therapeutic per the patient. Will staff with Dr Rosette Dodson.
== END 2018-10-09 13:30 | disposition home health service (06) | DRG 291 ==
LOC: ED 18:23 → IMCU 23:24 → 3A 10-08 00:34
PROVIDERS: ADMIT Internal Medicine; ATTEND Internal Medicine
PROC: 4A033R1 Measurement of Arterial Saturation, Peripheral, Percutaneous Approach (ICD-10-PCS; principal; 2018-10-05)
DX: I11.0 Hypertensive heart disease with heart failure (principal); J96.20 Acute and chronic respiratory failure, unspecified whether with hypoxia or hypercapnia; I50.23 Acute on chronic systolic (congestive) heart failure; S42.211A Unspecified displaced fracture of surgical neck of right humerus, initial encounter for closed fracture; J44.1 Chronic obstructive pulmonary disease with (acute) exacerbation; R19.7 Diarrhea, unspecified; E87.5 Hyperkalemia; A08.4 Viral intestinal infection, unspecified; Z88.0 Allergy status to penicillin; Z86.73 Personal history of transient ischemic attack (TIA), and cerebral infarction without residual deficits; E11.40 Type 2 diabetes mellitus with diabetic neuropathy, unspecified; Z95.1 Presence of aortocoronary bypass graft; Z89.411 Acquired absence of right great toe; F17.200 Nicotine dependence, unspecified, uncomplicated; Z79.82 Long term (current) use of aspirin; Z79.899 Other long term (current) drug therapy; Z79.4 Long term (current) use of insulin; K64.9 Unspecified hemorrhoids; I25.10 Atherosclerotic heart disease of native coronary artery without angina pectoris; Z82.49 Family history of ischemic heart disease and other diseases of the circulatory system; I48.92 Unspecified atrial flutter; K21.9 Gastro-esophageal reflux disease without esophagitis; I25.5 Ischemic cardiomyopathy; I27.20 Pulmonary hypertension, unspecified; W18.39XA Other fall on same level, initial encounter; Y93.89 Activity, other specified; Y92.89 Other specified places as the place of occurrence of the external cause; Y99.8 Other external cause status; M25.511 Pain in right shoulder; B36.9 Superficial mycosis, unspecified; I89.0 Lymphedema, not elsewhere classified; D68.59 Other primary thrombophilia; E11.51 Type 2 diabetes mellitus with diabetic peripheral angiopathy without gangrene; Z91.19 Patient's noncompliance with other medical treatment and regimen; F41.9 Anxiety disorder, unspecified; F32.9 Major depressive disorder, single episode, unspecified; I27.81 Cor pulmonale (chronic); S81.802A Unspecified open wound, left lower leg, initial encounter; S81.801A Unspecified open wound, right lower leg, initial encounter
CPT/HCPCS: 36415; 71045; 71046; 74177; 80048; 80053; 81001; 82803; 82962; 84484; 85025; 87040; 87116; 93005; 93010; 94640; 94760; 96361; 96374; 96375; G0378; A9270-GY; J1160; J1170; J1815; J1940; J1956; J2060; J2270; J2405; J2930; J7030; Q9967

== ENCOUNTER 2018-10-16 14:09 | Inpatient (IN) | payer MEDICAID ==
[2018-10-16] MEDS ORDERED: ASPIRIN PO ONE (14:31)
[2018-10-16 14:52] LABS: Basophils # (Auto) 0.1 K/mm3 (0.0-0.1); Basophils % (Auto) 0.4 % (0.0-1.8); Eosinophils # (Auto) 0.1 K/mm3 (0.0-0.4); Eosinophils % (Auto) 0.5 % (0.0-4.3); Hematocrit 36.5 % (30.3-42.9); Hemoglobin 11.7 gm/dl (10.1-14.3); Lymphocytes # (Auto) 1.8 K/mm3 (1.2-5.4); Lymphocytes % (Auto) 10.6 % (13.4-35.0); Mean Corpuscular HGB Conc 32 % (30-34); Mean Corpuscular Volume 82 fl (79-97); Monocytes # (Auto) 0.9 K/mm3 (0.0-0.8); Monocytes % (Auto) 5.6 % (0.0-7.3); Platelet Count 220 K/mm3 (140-440); Red Blood Count 4.47 M/mm3 (3.65-5.03); Red Cell Distribution Width 21.6 % (13.2-15.2)
[2018-10-16 15:02] LABS: INR 1.26 (0.87-1.13)
[2018-10-16 15:07] LABS: BUN/Creatinine Ratio 32; Blood Urea Nitrogen 16 mg/dL (7-17); Calcium 7.6 mg/dL (8.4-10.2); Hemolysis Index 13
--- NOTE | 2018-10-16 15:11 | XRay Report ---
AP CHEST: HISTORY: chest pain Compared to 10/05/18. Mild cardiomegaly, mild pulmonary venous congestion and small left pleural effusion are identified. These findings appear slightly improved since the comparison exam. No obvious infiltrate. No pneumothorax. CABG changes are noted. IMPRESSION: Mild CHF.
[2018-10-16] MEDS ORDERED: LASIX IV ONE (15:21)
[2018-10-16] MEDS ORDERED: MORPHINE IV ONE (15:21)
--- NOTE | 2018-10-16 15:29 | Emergency Department Report ---
ED Chest Pain HPI - General Chief Complaint: Chest Pain Stated Complaint: LEG PAIN Time Seen by Provider: 10/16/18 14:23 Source: EMS Mode of arrival: Stretcher Limitations: No Limitations - History of Present Illness Initial Comments: 58-year-old female with history of CHF, COPD presents to ED with chest pain or shortness of breath since last night. Patient states she is unable to sleep due to her symptoms. Patient reported his chest pain is intermittent, describes it as tightness in her chest. Patient denies chest pain at this time, however repo rts his pain "all over." PCP: Dr Conner Switchman Supervisor: [facility] -: Last night Onset: during rest Pain Location: left chest Pain Radiation: none Severity: moderate Severity scale (0 -10): 3 Quality: tightness Consistency: intermittent Improves With: nothing Worsens With: nothing re: dyspnea. denies: nausea, vomting, diaphoresis Other Symptoms: fever - Related Data Home Medications Medication Instructions Recorded Confirmed Last Taken Lisinopril [Prinivil] 2.5 mg PO QDAY 10/16/18 10/16/18 Unknown Previous Rx's Medication Instructions Recorded Last Taken Type Aspirin [Aspirin BABY CHEW TAB] 81 mg PO DAILY #100 tab.chew 09/07/18 Unknown Rx AtorvaSTATin [Lipitor] 40 mg PO QHS #30 tablet 09/07/18 Unknown Rx Gabapentin [Neurontin] 300 mg PO TID #90 capsule 09/07/18 Unknown Rx Insulin Glargine [Lantus VIAL] 20 units SUB-Q QHS #1 vial 09/07/18 Unknown Rx Ipratropium/Albuterol Sulfate 1 ampul IH QIDRT #120 ampul.neb 09/07/18 Unknown Rx [DUONEB *Not for PRN Use*] Lispro Insulin [Humalog] 5 unit SUB-Q ACHS #5 units 09/07/18 Unknown Rx Furosemide [Lasix TAB] 40 mg PO BID #60 tablet 10/08/18 Unknown Rx LORazepam [Ativan] 1 mg PO Q4H PRN #14 tablet 10/08/18 Unknown Rx oxyCODONE /ACETAMINOPHEN [Percocet 2 tab PO Q6H PRN #20 tablet 10/08/18 Unknown Rx 5/325 mg] Allergies Allergy/AdvReac Type Severity Reaction Status Date / Time Penicillins Allergy Itching Verified 04/03/18 12:43 Heart Score - HEART Score History: Slightly suspicious EKG: Non-specific Age: 45-65 Risk factors: 1-2 risk factors Troponin: < normal limit HEART Score: 3 ED Review of Systems ROS: Stated complaint: LEG PAIN Other details as noted in HPI Comment: All other systems reviewed and negative Respiratory: shortness of breath Cardiovascular: chest pain Musculoskeletal: other (reports chronic lower extremity pain) ED Past Medical Hx - Past Medical History Previous Medical History?: Yes Hx Hypertension: Yes Hx CVA: Yes (TIA) Hx Heart Attack/AMI: No Hx Congestive Heart Failure: Yes Hx Diabetes: Yes Hx Deep Vein Thrombosis: No Hx Pulmonary Embolism: No Hx Liver Disease: No Hx Sickle Cell Disease: No Hx Arthritis: No Hx Seizures: No Hx Kidney Stones: No Hx Asthma: Yes Hx COPD: Yes Hx Tuberculosis: No Hx Dementia: No Hx HIV: No Additional medical history: Diabetic neuropathy, previous CVA per medical record,cabg - Surgical History Past Surgical History?: Yes Hx Coronary Stent: No Hx Open Heart Surgery: Yes (CABG x 3) Hx Pacemaker: No Hx Internal Defibrillator: No Hx Cholecystectomy: No Additional Surgical History: tonsillectomy. all toes on left foot amputated. right great toe amputated - Social History Smoking Status: Never Smoker Substance Use Type: None - Medications Home Medications: Home Medications Medication Instructions Recorded Confirmed Last Taken Type Aspirin [Aspirin BABY CHEW TAB] 81 mg PO DAILY #100 tab.chew 09/07/18 10/16/18 Unknown Rx AtorvaSTATin [Lipitor] 40 mg PO QHS #30 tablet 09/07/18 10/16/18 Unknown Rx Gabapentin [Neurontin] 300 mg PO TID #90 capsule 09/07/18 10/16/18 Unknown Rx Insulin Glargine [Lantus VIAL] 20 units SUB-Q QHS #1 vial 09/07/18 10/16/18 Unknown Rx Ipratropium/Albuterol Sulfate 1 ampul IH QIDRT #120 ampul.neb 09/07/18 10/16/18 Unknown Rx [DUONEB *Not for PRN Use*] Lispro Insulin [Humalog] 5 unit SUB-Q ACHS #5 units 09/07/18 10/16/18 Unknown Rx Furosemide [Lasix TAB] 40 mg PO BID #60 tablet 10/08/18 10/16/18 Unknown Rx LORazepam [Ativan] 1 mg PO Q4H PRN #14 tablet 10/08/18 10/16/18 Unknown Rx oxyCODONE /ACETAMINOPHEN [Percocet 2 tab PO Q6H PRN #20 tablet 10/08/18 10/16/18 Unknown Rx 5/325 mg] Lisinopril [Prinivil] 2.5 mg PO QDAY 10/16/18 10/16/18 Unknown History ED Physical Exam - General Limitations: No Limitations General appearance: alert, in no apparent distress - Eye Eye exam: Present: normal appearance - ENT ENT exam: Present: mucous membranes moist - Neck Neck exam: Present: normal inspection - Respiratory Respiratory exam: Present: rales - Cardiovascular Cardiovascular Exam: Present: regular rate, normal rhythm - GI/Abdominal GI/Abdominal exam: Present: soft. Absent: distended, tenderness - Extremities Exam Extremities exam: Present: other (edema to BLE) - Neurological Exam Neurological exam: Present: alert, oriented X3 - Psychiatric Psychiatric exam: Present: normal affect, normal mood ED Course Vital Signs 10/16/18 10/16/18 10/16/18 14:27 14:45 15:10 Temperature 98.5 F Pulse Rate 110 H 106 H Respiratory 18 18 Rate Blood Pressure 107/64 Blood Pressure 152/77 [Right] O2 Sat by Pulse 100 97 100 Oximetry 10/16/18 10/16/18 15:40 16:31 Temperature Pulse Rate 88 104 H Respiratory 18 18 Rate Blood Pressure Blood Pressure 110/60 149/123 [Right] O2 Sat by Pulse 100 100 Oximetry ED Medical Decision Making - Lab Data Result diagrams: 10/16/18 14:39 10/16/18 14:39 - EKG Data -: EKG Interpreted by Nh EKG shows normal: axis, QRS complexes, ST-T waves - EKG Data Interpretation: no acute changes, other (Atrial fibrillation) - Radiology Data Radiology results: report reviewed, image reviewed - Differential Diagnosis CHF, COPD, pneumonia, ACS Critical care attestation.: If time is entered above; I have spent that time in minutes in the direct care of this critically ill patient, excluding procedure time. ED Disposition Clinical Impression: CHF (congestive heart failure), Chest pain Disposition: 09 OP ADMIT IP TO THIS HOSP Is pt being admited?: Yes Condition: Stable Time of Disposition: 15:29
[2018-10-16] MEDS: IBUPROFEN PO PRN (18:47)
--- NOTE | 2018-10-16 19:12 | History and Physical Report ---
History of Present Illness Date of examination: 10/16/18 Date of admission: 10/16/18 15:30 Chief complaint: SOB/Cp. History of present illness: Patient presented to the ER , with CC of SOB/CP, work up in the Er showed elevated BNP, she was treated with diuretic, and admitted for better treatment. Past History Past Medical History: diabetes Past Surgical History: CABG Social history: single, lives with family, smoking Family history: no significant family history Medications and Allergies Allergies Allergy/AdvReac Type Severity Reaction Status Date / Time Penicillins Allergy Itching Verified 04/03/18 12:43 Home Medications Medication Instructions Recorded Confirmed Last Taken Type Aspirin [Aspirin BABY CHEW TAB] 81 mg PO DAILY #100 tab.chew 09/07/18 10/16/18 Unknown Rx AtorvaSTATin [Lipitor] 40 mg PO QHS #30 tablet 09/07/18 10/16/18 Unknown Rx Gabapentin [Neurontin] 300 mg PO TID #90 capsule 09/07/18 10/16/18 Unknown Rx Insulin Glargine [Lantus VIAL] 20 units SUB-Q QHS #1 vial 09/07/18 10/16/18 Unknown Rx Ipratropium/Albuterol Sulfate 1 ampul IH QIDRT #120 ampul.neb 09/07/18 10/16/18 Unknown Rx [DUONEB *Not for PRN Use*] Lispro Insulin [Humalog] 5 unit SUB-Q ACHS #5 units 09/07/18 10/16/18 Unknown Rx Furosemide [Lasix TAB] 40 mg PO BID #60 tablet 10/08/18 10/16/18 Unknown Rx LORazepam [Ativan] 1 mg PO Q4H PRN #14 tablet 10/08/18 10/16/18 Unknown Rx oxyCODONE /ACETAMINOPHEN [Percocet 2 tab PO Q6H PRN #20 tablet 10/08/18 10/16/18 Unknown Rx 5/325 mg] Lisinopril [Prinivil] 2.5 mg PO QDAY 10/16/18 10/16/18 Unknown History Active Meds: Active Medications Albuterol/Ipratropium (Duoneb *Not For Prn Use*) 1 ampul IH QIDRT LUZ Aspirin (Baby Aspirin) 81 mg PO DAILY LUZ Atorvastatin Calcium (Lipitor) 40 mg PO QHS LUZ Furosemide (Lasix) 40 mg IV 0600,1800 LUZ Gabapentin (Neurontin) 300 mg PO TID LUZ Ibuprofen (Motrin) 800 mg PO Q8H PRN PRN Reason: Pain, Mild (1-3) Last Admin: 10/16/18 18:47 Dose: 800 mg Documented by: Insulin Glargine (Lantus) 20 units SUB-Q QHS LUZ Insulin Human Lispro (Humalog) 5 unit SUB-Q ACHS LUZ Lisinopril (Zestril) 2.5 mg PO QDAY LUZ Lorazepam (Ativan) 1 mg PO Q4H PRN PRN Reason: Anxiety Review of Systems Constitutional: chronic pain Breasts: deferred Respiratory: shortness of breath Musculoskeletal: shooting leg pain Exam - Constitutional Vitals: Temp Pulse Resp BP Pulse Ox 98.1 F 104 H 18 125/83 100 10/16/18 17:04 10/16/18 16:31 10/16/18 17:04 10/16/18 17:04 10/16/18 16:31 General appearance: Present: mild distress, well-nourished - EENT Eyes: Present: PERRL ENT: hearing intact, clear oral mucosa - Neck Neck: Present: supple, normal ROM - Respiratory Respiratory effort: normal Respiratory: bilateral: wheezing - Cardiovascular Heart Sounds: Present: S1 & S2. Absent: rub, click - Extremities Extremities: pulses symmetrical, No edema Peripheral Pulses: within normal limits - Abdominal General gastrointestinal: Present: soft, non-tender, non-distended, normal bowel sounds Female genitourinary: Present: deferred - Rectal Rectal Exam: deferred - Integumentary Integumentary: Present: clear, warm, dry - Musculoskeletal Musculoskeletal: gait normal, strength equal bilaterally - Psychiatric Psychiatric: appropriate mood/affect, intact judgment & insight - Neurologic Neurologic: CNII-XII intact, moves all extremities Results - Labs CBC & Chem 7: 10/16/18 14:39 10/16/18 14:39 Labs: Abnormal lab results 10/16/18 10/16/18 10/16/18 Range/Units 14:39 14:39 14:39 WBC 16.6 H (4.5-11.0) K/mm3 MCH 26 L (28-32) pg RDW 21.6 H (13.2-15.2) % Lymph % (Auto) 10.6 L (13.4-35.0) % [place] # 0.9 H (0.0-0.8) K/mm3 Seg Neutrophils % 82.9 H (40.0-70.0) % Seg Neutrophils # 13.8 H (1.8-7.7) K/mm3 PT 16.6 H (12.2-14.9) Sec. INR 1.26 H (0.87-1.13) Chloride 107.9 H (98-107) mmol/L Carbon Dioxide 21 L (22-30) mmol/L Creatinine 0.5 L (0.7-1.2) mg/dL Glucose 182 H (65-100) mg/dL POC Glucose (70-105) Calcium 7.6 L (8.4-10.2) mg/dL NT-Pro-B Natriuret Pep (0-900) pg/mL 10/16/18 10/16/18 Range/Units 14:39 17:55 WBC (4.5-11.0) K/mm3 MCH (28-32) pg RDW (13.2-15.2) % Lymph % (Auto) (13.4-35.0) % [place] # (0.0-0.8) K/mm3 Seg Neutrophils % (40.0-70.0) % Seg Neutrophils # (1.8-7.7) K/mm3 PT (12.2-14.9) Sec. INR (0.87-1.13) Chloride (98-107) mmol/L Carbon Dioxide (22-30) mmol/L Creatinine (0.7-1.2) mg/dL Glucose (65-100) mg/dL POC Glucose 164 H (70-105) Calcium (8.4-10.2) mg/dL NT-Pro-B Natriuret Pep 4638 H (0-900) pg/mL Assessment and Plan - Patient Problems (1) Chest pain Current Visit: Yes Status: Acute Plan to address problem: resolved. (2) CHF (congestive heart failure) Current Visit: Yes Status: Chronic Qualifiers: Plan to address problem: Diuretics. (3) CAD (coronary artery disease) of artery bypass graft Current Visit: No Status: Acute Plan to address problem: supportive. (4) Cellulitis Current Visit: No Status: Acute Qualifiers: Site of cellulitis: extremity Site of cellulitis of extremity: lower extremity Laterality: left Qualified Code(s): L03.116 - Cellulitis of left lower limb Plan to address problem: wound care. (5) Diabetes Current Visit: No Status: Acute Plan to address problem: control BG.
[2018-10-16] MEDS: ATIVAN PO PRN (19:28)
[2018-10-16 19:57] LABS: Bacteria,Urine 4+ /HPF (Negative); Bilirubin,Urine NEG (Negative); Blood,Urine SM (Negative); Color,Urine Yellow (Yellow); Hyaline Casts,Urine 1 /LPF; Mucus,Urine 2+ /HPF; Protein,Urine <15 mg/dL mg/dL (Negative)
[2018-10-16] MEDS: DUONEB *Not for PRN Use IH SCH (20:42)
--- NOTE | 2018-10-16 21:55 | XRay Report ---
PROCEDURE: XR SHOULDER 2+V RT TECHNIQUE: 3 views obtained of the right shoulder. Comparison is made to the prior radiograph from October 15. HISTORY: Trauma related pain. COMPARISONS: October 05 FINDINGS: Fracture of the humeral neck again noted. Increasing impaction of the fracture. No dislocation of the glenohumeral joint. Fracture of the greater tuberosity, also present on the prior examination. IMPRESSION: . Fractures of the humeral neck and greater tuberosity also present on the prior examination. Increas ing impaction at the femoral neck. No dislocation of the glenohumeral joint. This document is electronically signed by Neno Mcmanus MD., October 16 2018 09:53:25 PM ET
[2018-10-16] MEDS: SOLU-Medrol IV SCH (22:28)
[2018-10-16] MEDS: NEURONTIN PO SCH (22:28)
[2018-10-16] MEDS: ROCEPHIN/NS 1 GM/50 ML 1 GM/50 ML BAG IV SCH (22:33)
[2018-10-16] MEDS: HumaLOG SUB-Q SCH (22:34)
[2018-10-16] MEDS: LANTUS SUB-Q SCH (22:35)
[2018-10-17] MEDS: IBUPROFEN PO PRN ×3 (04:14→20:34)
[2018-10-17] MEDS: LASIX IV SCH ×2 (05:10→19:12)
[2018-10-17 06:19] LABS: Mean Corpuscular HGB Conc 30 % (30-34); Mean Corpuscular Volume 84 fl (79-97); Platelet Count 247 K/mm3 (140-440); Red Blood Count 4.81 M/mm3 (3.65-5.03)
[2018-10-17 06:29] LABS: Hematocrit 40.3 % (30.3-42.9); Hemoglobin 12.2 gm/dl (10.1-14.3); Red Cell Distribution Width 22.3 % (13.2-15.2)
[2018-10-17 06:35] LABS: BUN/Creatinine Ratio 30; Blood Urea Nitrogen 18 mg/dL (7-17); Calcium 7.8 mg/dL (8.4-10.2); Hemolysis Index 10
[2018-10-17 07:32] LABS: Total Cells Counted 100
[2018-10-17 07:33] LABS: Anisocytosis 1+; Basophils % (Manual) 0 % (0.0-1.8); Eosinophils % (Manual) 0 % (0.0-4.3); Hypochromasia 1+; Platelet Estimate Consistent w Auto
[2018-10-17] MEDS: DUONEB *Not for PRN Use IH SCH ×4 (08:01→20:35)
[2018-10-17] MEDS: HumaLOG SUB-Q SCH ×4 (08:34→22:07)
[2018-10-17] MEDS: NEURONTIN PO SCH ×3 (08:34→20:34)
[2018-10-17] MEDS: ATIVAN PO PRN ×2 (10:42→22:05)
[2018-10-17] MEDS: ZESTRIL PO SCH (10:43)
[2018-10-17] MEDS: BABY ASPIRIN PO SCH (10:43)
[2018-10-17] MEDS: SOLU-Medrol IV SCH ×2 (10:51→23:34)
--- NOTE | 2018-10-17 17:04 | Progress Note ---
Assessment and Plan - Patient Problems (1) Chest pain Current Visit: Yes Status: Resolved Plan to address problem: resolved. (2) CHF (congestive heart failure) Current Visit: Yes Status: Chronic Qualifiers: Plan to address problem: Diuretics. (3) CAD (coronary artery disease) of artery bypass graft Current Visit: No Status: Acute Plan to address problem: supportive. (4) Cellulitis Current Visit: No Status: Chronic Qualifiers: Site of cellulitis: extremity Site of cellulitis of extremity: lower extremity Laterality: left Qualified Code(s): L03.116 - Cellulitis of left lower limb Plan to address problem: wound care. (5) Diabetes Current Visit: No Status: Acute Plan to address problem: control BG. Subjective Date of service: 10/17/18 Interval history: Patient is seen/examined, resting in bed,, records reviewed, case discussed, put on mild pain control.Wbc elevated due to steroids. Objective - Constitutional Vitals: Vital Signs - 12hr 10/17/18 10/17/18 10/17/18 05:18 08:01 08:12 Temperature 97.7 F Pulse Rate 110 H Pulse Rate [ 80 115 H Anterior Bilateral Throughout] Respiratory 22 Rate Respiratory 20 20 Rate [Anterior Bilateral Throughout] Blood Pressure 123/86 O2 Sat by Pulse 90 Oximetry 10/17/18 10/17/18 10/17/18 09:15 10:07 10:09 Temperature 97.5 F L Pulse Rate 130 H 96 H Pulse Rate [ Anterior Bilateral Throughout] Respiratory 20 Rate Respiratory Rate [Anterior Bilateral Throughout] Blood Pressure 95/51 O2 Sat by Pulse 97 Oximetry 10/17/18 10/17/18 10/17/18 10:42 12:00 12:10 Temperature Pulse Rate Pulse Rate [ 92 H 95 H Anterior Bilateral Throughout] Respiratory 22 Rate Respiratory 20 20 Rate [Anterior Bilateral Throughout] Blood Pressure O2 Sat by Pulse Oximetry 10/17/18 10/17/18 10/17/18 16:08 16:18 16:32 Temperature Pulse Rate 109 H Pulse Rate [ 98 H 83 Anterior Bilateral Throughout] Respiratory 20 Rate Respiratory 20 20 Rate [Anterior Bilateral Throughout] Blood Pressure 111/73 O2 Sat by Pulse 96 Oximetry 10/17/18 16:33 Temperature 97.9 F Pulse Rate Pulse Rate [ Anterior Bilateral Throughout] Respiratory Rate Respiratory Rate [Anterior Bilateral Throughout] Blood Pressure O2 Sat by Pulse Oximetry General appearance: Present: mild distress, well-nourished - EENT Eyes: PERRL, EOM intact ENT: hearing intact, clear oral mucosa Ears: bilateral: normal - Neck Neck: supple, normal ROM - Respiratory Respiratory effort: normal Respiratory: bilateral: wheezing - Breasts Breasts: deferred - Cardiovascular Rhythm: regular Heart Sounds: Present: S1 & S2. Absent: gallop, rub Extremities: pulses intact, No edema, normal color, Full ROM - Gastrointestinal General gastrointestinal: Present: soft, non-tender, non-distended, normal bowel sounds Rectal Exam: deferred - Genitourinary Female genitourinary: deferred - Integumentary Integumentary: clear, warm, dry - Musculoskeletal Musculoskeletal: 1, strength equal bilaterally - Neurologic Neurologic: moves all extremities - Psychiatric Psychiatric: memory intact, appropriate mood/affect, intact judgment & insight - Labs CBC & Chem 7: 10/17/18 05:57 10/17/18 05:57 Labs: Abnormal lab results 10/16/18 10/16/18 10/16/18 Range/Units 17:55 19:30 21:59 WBC (4.5-11.0) K/mm3 MCH (28-32) pg RDW (13.2-15.2) % Seg Neuts % (Manual) (40.0-70.0) % Lymphocytes % (Manual) (13.4-35.0) % Nucleated RBC % (0.0-0.9) % Seg Neutrophils # Man (1.8-7.7) K/mm3 BUN (7-17) mg/dL Creatinine (0.7-1.2) mg/dL Glucose (65-100) mg/dL POC Glucose 164 H 174 H (70-105) Calcium (8.4-10.2) mg/dL U Epithel Cells (Auto) 15.0 H (0-13.0) /HPF 10/17/18 10/17/18 10/17/18 Range/Units 05:57 05:57 07:49 WBC 17.5 H (4.5-11.0) K/mm3 MCH 25 L (28-32) pg RDW 22.3 H (13.2-15.2) % Seg Neuts % (Manual) 91.0 H (40.0-70.0) % Lymphocytes % (Manual) 7.0 L (13.4-35.0) % Nucleated RBC % 1.0 H (0.0-0.9) % Seg Neutrophils # Man 15.9 H (1.8-7.7) K/mm3 BUN 18 H (7-17) mg/dL Creatinine 0.6 L (0.7-1.2) mg/dL Glucose 197 H (65-100) mg/dL POC Glucose 195 H (70-105) Calcium 7.8 L (8.4-10.2) mg/dL U Epithel Cells (Auto) (0-13.0) /HPF 10/17/18 Range/Units 12:03 WBC (4.5-11.0) K/mm3 MCH (28-32) pg RDW (13.2-15.2) % Seg Neuts % (Manual) (40.0-70.0) % Lymphocytes % (Manual) (13.4-35.0) % Nucleated RBC % (0.0-0.9) % Seg Neutrophils # Man (1.8-7.7) K/mm3 BUN (7-17) mg/dL Creatinine (0.7-1.2) mg/dL Glucose (65-100) mg/dL POC Glucose 308 H (70-105) Calcium (8.4-10.2) mg/dL U Epithel Cells (Auto) (0-13.0) /HPF Medications & Allergies - Medications Allergies/Adverse Reactions: Allergies Penicillins Allergy (Verified 04/03/18 12:43) Itching Home Medications: Home Medications Medication Instructions Recorded Confirmed Last Taken Type Aspirin [Aspirin BABY CHEW TAB] 81 mg PO DAILY #100 tab.chew 09/07/18 10/16/18 Unknown Rx AtorvaSTATin [Lipitor] 40 mg PO QHS #30 tablet 09/07/18 10/16/18 Unknown Rx Gabapentin [Neurontin] 300 mg PO TID #90 capsule 09/07/18 10/16/18 Unknown Rx Insulin Glargine [Lantus VIAL] 20 units SUB-Q QHS #1 vial 09/07/18 10/16/18 Unknown Rx Ipratropium/Albuterol Sulfate 1 ampul IH QIDRT #120 ampul.neb 09/07/18 10/16/18 Unknown Rx [DUONEB *Not for PRN Use*] Lispro Insulin [Humalog] 5 unit SUB-Q ACHS #5 units 09/07/18 10/16/18 Unknown Rx Furosemide [Lasix TAB] 40 mg PO BID #60 tablet 10/08/18 10/16/18 Unknown Rx LORazepam [Ativan] 1 mg PO Q4H PRN #14 tablet 10/08/18 10/16/18 Unknown Rx oxyCODONE /ACETAMINOPHEN [Percocet 2 tab PO Q6H PRN #20 tablet 10/08/18 10/16/18 Unknown Rx 5/325 mg] Lisinopril [Prinivil] 2.5 mg PO QDAY 10/16/18 10/16/18 Unknown History Active Medications: Generic Name Dose Route Start Last Admin Trade Name Freq PRN Reason Stop Dose Admin Acetaminophen/Hydrocodone Bitart 1 each 10/17/18 15:28 [place] 5/325 PO Q8H PRN Pain, Moderate (4-6) Albuterol/Ipratropium 1 ampul 10/16/18 20:00 10/17/18 16:08 Duoneb *Not For Prn Use* IH 1 ampul QIDRT LUZ Administration Aspirin 81 mg 10/17/18 10:00 10/17/18 10:43 Baby Aspirin PO 81 mg DAILY LUZ Administration Atorvastatin Calcium 40 mg 10/16/18 22:00 10/16/18 22:28 Lipitor PO 40 mg QHS LUZ Administration Furosemide 40 mg 10/17/18 06:00 10/17/18 05:10 Lasix IV 40 mg 0600,1800 LUZ Administration Gabapentin 300 mg 10/16/18 20:00 10/17/18 08:34 Neurontin PO 300 mg TID LUZ Administration Ceftriaxone Sodium 1 gm in 50 mls @ 100 mls/hr 10/16/18 21:00 10/16/18 22:33 Rocephin/Ns 1 Gm/50 Ml IV 100 mls/hr Q24H LUZ Administration Protocol Ibuprofen 800 mg 10/16/18 18:41 10/17/18 10:42 Motrin PO 800 mg Q8H PRN Administration Pain, Mild (1-3) Insulin Glargine 20 units 10/16/18 22:00 10/16/18 22:35 Lantus SUB-Q 20 units QHS LUZ Administration Insulin Human Lispro 5 unit 10/16/18 22:00 04/19/19 13:31 Humalog SUB-Q 5 unit ACHS LUZ Administration Lisinopril 2.5 mg 10/17/18 10:00 10/17/18 10:43 Zestril PO 2.5 mg QDAY LUZ Administration Lorazepam 1 mg 10/16/18 18:49 10/17/18 10:42 Ativan PO 1 mg Q4H PRN Administration Anxiety Methylprednisolone Sodium Succinate 40 mg 10/16/18 22:00 10/17/18 10:51 Solu-Medrol IV 40 mg Q12H LUZ Administration Zolpidem Tartrate 5 mg 10/16/18 20:12 Ambien PO QHS PRN Sleep
[2018-10-17] MEDS: NORCO 5/325 PO PRN (17:19)
[2018-10-17] MEDS: ROCEPHIN/NS 1 GM/50 ML 1 GM/50 ML BAG IV SCH (20:35)
[2018-10-17] MEDS: LANTUS SUB-Q SCH (22:08)
[2018-10-18] MEDS: NORCO 5/325 PO PRN ×3 (00:42→17:32)
[2018-10-18] MEDS: IBUPROFEN PO PRN ×3 (03:06→21:07)
[2018-10-18] MEDS: LASIX IV SCH ×2 (06:56→17:24)
[2018-10-18] MEDS: NEURONTIN PO SCH ×3 (08:09→20:15)
[2018-10-18] MEDS: HumaLOG SUB-Q SCH ×4 (08:14→22:48)
[2018-10-18] MEDS: DUONEB *Not for PRN Use IH SCH ×4 (09:25→20:08)
[2018-10-18] MEDS: BABY ASPIRIN PO SCH (10:44)
[2018-10-18] MEDS: ZESTRIL PO SCH (10:44)
[2018-10-18] MEDS: SOLU-Medrol IV SCH ×2 (11:30→21:54)
--- NOTE | 2018-10-18 12:44 | Progress Note ---
Assessment and Plan - Patient Problems (1) Chest pain Current Visit: Yes Status: Resolved Plan to address problem: resolved. (2) CHF (congestive heart failure) Current Visit: Yes Status: Chronic Qualifiers: Plan to address problem: Diuretics. (3) CAD (coronary artery disease) of artery bypass graft Current Visit: No Status: Acute Plan to address problem: supportive. (4) Cellulitis Current Visit: No Status: Chronic Qualifiers: Site of cellulitis: extremity Site of cellulitis of extremity: lower extremity Laterality: left Qualified Code(s): L03.116 - Cellulitis of left lower limb Plan to address problem: wound care. (5) Diabetes Current Visit: No Status: Acute Plan to address problem: control BG. Subjective Date of service: 10/18/18 Interval history: Patient is seen/examined, resting in bed,, records reviewed, case discussed, put on mild pain control.Wbc elevated due to steroids. Patient seen/examined, resting in bed, records reviewed, Will start working on d/c plans. Objective - Constitutional Vitals: Vital Signs - 12hr 10/18/18 10/18/18 10/18/18 00:42 01:42 03:06 Temperature Pulse Rate Pulse Rate [ Anterior Bilateral Throughout] Respiratory 18 18 18 Rate Respiratory Rate [Anterior Bilateral Throughout] Respiratory Rate [Bilateral Foot] Blood Pressure O2 Sat by Pulse Oximetry 10/18/18 10/18/18 10/18/18 04:06 04:39 08:00 Temperature 98.5 F Pulse Rate 113 H 116 H Pulse Rate [ Anterior Bilateral Throughout] Respiratory 18 18 Rate Respiratory Rate [Anterior Bilateral Throughout] Respiratory Rate [Bilateral Foot] Blood Pressure 113/73 O2 Sat by Pulse 98 Oximetry 10/18/18 10/18/18 10/18/18 08:09 08:42 09:25 Temperature Pulse Rate Pulse Rate [ 118 H Anterior Bilateral Throughout] Respiratory 22 Rate Respiratory 20 Rate [Anterior Bilateral Throughout] Respiratory 20 Rate [Bilateral Foot] Blood Pressure O2 Sat by Pulse 96 Oximetry 10/18/18 10/18/18 10/18/18 09:35 09:49 09:52 Temperature 98.5 F Pulse Rate 111 H Pulse Rate [ 100 H Anterior Bilateral Throughout] Respiratory 22 Rate Respiratory 20 Rate [Anterior Bilateral Throughout] Respiratory Rate [Bilateral Foot] Blood Pressure 107/55 O2 Sat by Pulse 100 Oximetry 10/18/18 10/18/18 12:28 12:29 Temperature 98.2 F Pulse Rate 110 H Pulse Rate [ Anterior Bilateral Throughout] Respiratory 20 Rate Respiratory Rate [Anterior Bilateral Throughout] Respiratory Rate [Bilateral Foot] Blood Pressure 116/53 O2 Sat by Pulse 98 Oximetry General appearance: Present: mild distress, well-nourished - EENT Eyes: PERRL, EOM intact ENT: hearing intact, clear oral mucosa Ears: bilateral: normal - Neck Neck: supple, normal ROM - Respiratory Respiratory: bilateral: wheezing - Breasts Breasts: deferred - Cardiovascular Rhythm: regular Heart Sounds: Present: S1 & S2. Absent: gallop, rub Extremities: pulses intact, No edema, normal color, Full ROM - Gastrointestinal General gastrointestinal: Present: soft, non-tender, non-distended, normal bowel sounds Rectal Exam: deferred - Genitourinary Female genitourinary: deferred - Integumentary Integumentary: clear, warm, dry - Musculoskeletal Musculoskeletal: 1, strength equal bilaterally - Neurologic Neurologic: moves all extremities - Psychiatric Psychiatric: memory intact, appropriate mood/affect, intact judgment & insight - Labs CBC & Chem 7: 10/17/18 05:57 10/17/18 05:57 Labs: Abnormal lab results 10/17/18 10/17/18 10/18/18 Range/Units 16:59 21:30 08:20 POC Glucose 307 H 344 H 322 H (70-105) 10/18/18 Range/Units 11:57 POC Glucose 302 H (70-105) Medications & Allergies - Medications Allergies/Adverse Reactions: Allergies Penicillins Allergy (Verified 04/03/18 12:43) Itching Home Medications: Home Medications Medication Instructions Recorded Confirmed Last Taken Type Aspirin [Aspirin BABY CHEW TAB] 81 mg PO DAILY #100 tab.chew 09/07/18 10/16/18 Unknown Rx AtorvaSTATin [Lipitor] 40 mg PO QHS #30 tablet 09/07/18 10/16/18 Unknown Rx Gabapentin [Neurontin] 300 mg PO TID #90 capsule 09/07/18 10/16/18 Unknown Rx Insulin Glargine [Lantus VIAL] 20 units SUB-Q QHS #1 vial 09/07/18 10/16/18 Unknown Rx Ipratropium/Albuterol Sulfate 1 ampul IH QIDRT #120 ampul.neb 09/07/18 10/16/18 Unknown Rx [DUONEB *Not for PRN Use*] Lispro Insulin [Humalog] 5 unit SUB-Q ACHS #5 units 09/07/18 10/16/18 Unknown Rx Furosemide [Lasix TAB] 40 mg PO BID #60 tablet 10/08/18 10/16/18 Unknown Rx LORazepam [Ativan] 1 mg PO Q4H PRN #14 tablet 10/08/18 10/16/18 Unknown Rx oxyCODONE /ACETAMINOPHEN [Percocet 2 tab PO Q6H PRN #20 tablet 10/08/18 10/16/18 Unknown Rx 5/325 mg] Lisinopril [Prinivil] 2.5 mg PO QDAY 10/16/18 10/16/18 Unknown History Active Medications: Generic Name Dose Route Start Last Admin Trade Name Freq PRN Reason Stop Dose Admin Acetaminophen/Hydrocodone Bitart 1 each 10/17/18 15:28 10/18/18 08:09 [place] 5/325 PO 1 each Q8H PRN Administration Pain, Moderate (4-6) Albuterol/Ipratropium 1 ampul 10/16/18 20:00 10/18/18 09:25 Duoneb *Not For Prn Use* IH 1 ampul QIDRT LUZ Administration Aspirin 81 mg 10/17/18 10:00 10/18/18 10:44 Baby Aspirin PO 81 mg DAILY LUZ Administration Atorvastatin Calcium 40 mg 10/16/18 22:00 10/17/18 22:05 Lipitor PO 40 mg QHS LUZ Administration Furosemide 40 mg 10/17/18 06:00 10/18/18 06:56 Lasix IV 40 mg 0600,1800 LUZ Administration Gabapentin 300 mg 10/16/18 20:00 10/18/18 08:09 Neurontin PO 300 mg TID LUZ Administration Ceftriaxone Sodium 1 gm in 50 mls @ 100 mls/hr 10/16/18 21:00 10/17/18 20:35 Rocephin/Ns 1 Gm/50 Ml IV 100 mls/hr Q24H LUZ Administration Protocol Ibuprofen 800 mg 10/16/18 18:41 10/18/18 03:06 Motrin PO 800 mg Q8H PRN Administration Pain, Mild (1-3) Insulin Glargine 20 units 10/16/18 22:00 10/17/18 22:08 Lantus SUB-Q 20 units QHS LUZ Administration Insulin Human Lispro 5 unit 10/16/18 22:00 10/18/18 08:14 Humalog SUB-Q 5 unit ACHS LUZ Administration Lisinopril 2.5 mg 10/17/18 10:00 10/18/18 10:44 Zestril PO 2.5 mg QDAY LUZ Administration Lorazepam 1 mg 10/16/18 18:49 10/17/18 22:05 Ativan PO 1 mg Q4H PRN Administration Anxiety Methylprednisolone Sodium Succinate 40 mg 10/16/18 22:00 10/18/18 11:30 Solu-Medrol IV 40 mg Q12H LUZ Administration Zolpidem Tartrate 5 mg 10/16/18 20:12 Ambien PO QHS PRN Sleep
[2018-10-18] MEDS ORDERED: TYLENOL #3 PO ONE (14:00)
--- NOTE | 2018-10-18 17:32 | Consultation ---
History of Present Illness Consult date: 10/18/18 Reason for consult: wound care Requesting physician: SANTY LYNCH Chief complaint: left heel wound - History of present illness History of present illness: 58yo F with multiple medical problems including DM presented to the hospital with SOB. we are asked to see her for her left heel wound. She reports that it has been there for a few months. It began when she was putting more pressure on the left foot to offload the right. She has chronic pain in both legs. Denies any recent changes to the wounds. She was supposed to see wound care after her last admission. She was unable to make it. She would like to be considered for hyperbaric therapy. Past History Past Medical History: diabetes Past Surgical History: CABG Social history: single, lives with family, smoking. denies: alcohol abuse, IV drug use Family history: no significant family history Medications and Allergies Allergies Allergy/AdvReac Type Severity Reaction Status Date / Time Penicillins Allergy Itching Verified 04/03/18 12:43 Home Medications Medication Instructions Recorded Confirmed Last Taken Type Aspirin [Aspirin BABY CHEW TAB] 81 mg PO DAILY #100 tab.chew 09/07/18 10/16/18 Unknown Rx AtorvaSTATin [Lipitor] 40 mg PO QHS #30 tablet 09/07/18 10/16/18 Unknown Rx Gabapentin [Neurontin] 300 mg PO TID #90 capsule 09/07/18 10/16/18 Unknown Rx Insulin Glargine [Lantus VIAL] 20 units SUB-Q QHS #1 vial 09/07/18 10/16/18 Unknown Rx Ipratropium/Albuterol Sulfate 1 ampul IH QIDRT #120 ampul.neb 09/07/18 10/16/18 Unknown Rx [DUONEB *Not for PRN Use*] Lispro Insulin [Humalog] 5 unit SUB-Q ACHS #5 units 09/07/18 10/16/18 Unknown Rx Furosemide [Lasix TAB] 40 mg PO BID #60 tablet 10/08/18 10/16/18 Unknown Rx LORazepam [Ativan] 1 mg PO Q4H PRN #14 tablet 10/08/18 10/16/18 Unknown Rx oxyCODONE /ACETAMINOPHEN [Percocet 2 tab PO Q6H PRN #20 tablet 10/08/18 10/16/18 Unknown Rx 5/325 mg] Lisinopril [Prinivil] 2.5 mg PO QDAY 10/16/18 10/16/18 Unknown History Active Meds: Active Medications Acetaminophen/Hydrocodone Bitart ([place] 5/325) 1 each PO Q8H PRN PRN Reason: Pain, Moderate (4-6) Last Admin: 10/18/18 08:09 Dose: 1 each Documented by: Albuterol/Ipratropium (Duoneb *Not For Prn Use*) 1 ampul IH QIDRT PENDING SALE TO [facility] Last Admin: 10/18/18 16:27 Dose: 1 ampul Documented by: Aspirin (Baby Aspirin) 81 mg PO DAILY PENDING SALE TO [facility] Last Admin: 10/18/18 10:44 Dose: 81 mg Documented by: Atorvastatin Calcium (Lipitor) 40 mg PO QHS PENDING SALE TO [facility] Last Admin: 10/17/18 22:05 Dose: 40 mg Documented by: Furosemide (Lasix) 40 mg IV 0600,1800 PENDING SALE TO [facility] Last Admin: 10/18/18 17:24 Dose: 40 mg Documented by: Gabapentin (Neurontin) 300 mg PO TID PENDING SALE TO [facility] Last Admin: 10/18/18 14:14 Dose: 300 mg Documented by: Ceftriaxone Sodium (Rocephin/Ns 1 Gm/50 Ml) 1 gm in 50 mls @ 100 mls/hr IV Q24H PENDING SALE TO [facility]; Protocol Last Admin: 10/17/18 20:35 Dose: 100 mls/hr Documented by: Ibuprofen (Motrin) 800 mg PO Q8H PRN PRN Reason: Pain, Mild (1-3) Last Admin: 10/18/18 12:43 Dose: 800 mg Documented by: Insulin Glargine (Lantus) 20 units SUB-Q QHS PENDING SALE TO [facility] Last Admin: 10/17/18 22:08 Dose: 20 units Documented by: Insulin Human Lispro (Humalog) 5 unit SUB-Q ACHS PENDING SALE TO [facility] Last Admin: 10/18/18 17:23 Dose: 5 unit Documented by: Lisinopril (Zestril) 2.5 mg PO QDAY PENDING SALE TO [facility] Last Admin: 10/18/18 10:44 Dose: 2.5 mg Documented by: Lorazepam (Ativan) 1 mg PO Q4H PRN PRN Reason: Anxiety Last Admin: 10/17/18 22:05 Dose: 1 mg Documented by: Methylprednisolone Sodium Succinate (Solu-Medrol) 40 mg IV Q12H LUZ Last Admin: 10/18/18 11:30 Dose: 40 mg Documented by: Zolpidem Tartrate (Ambien) 5 mg PO QHS PRN PRN Reason: Sleep Review of Systems - Constitutional chronic pain (in both lower extremities and hands), no fever, no chills - Cardiovascular shortness of breath, no chest pain - Respiratory shortness of breath, dyspnea on exertion, no cough - Gastrointestinal no abdominal pain - Integumentary redness, sores, wounds, foot/leg ulcers Exam Vital Signs Temp Pulse Resp BP Pulse Ox 98.5 F 110 H 18 107/64 100 10/16/18 14:27 10/16/18 14:27 10/16/18 14:27 10/16/18 14:27 10/16/18 14:27 - General physical appearance Positive: no pain, obese (morbidly), other (very anxious and emotional) - Eyes Positive: normal occular movement - Respiratory Positive: normal expansion, other (audible coarse breathing) - Extremities Extremity abnormal: edema, ulceration, erythema, tenderness, other (both feet are wrapped. The left foot has had a transmet amputation. There is an open wound closer to the heel on the lateral aspect with fibrinous exudate. Surrounding rim of erythema. ) - Neurologic Neurologic: alert and oriented to time, place and person - Psychiatric Psychiatric: cooperative, depressed Results - Labs 10/17/18 05:57 10/17/18 05:57 Abnormal lab results 10/17/18 10/18/18 10/18/18 Range/Units 21:30 08:20 11:57 POC Glucose 344 H 322 H 302 H (70-105) Assessment and Plan - Patient Problems (1) Chronic ulcer of left foot with fat layer exposed Current Visit: Yes Status: Acute Plan to address problem: Patient is stable. Patient will need debridement in the operating room. She is agreeable to this plan. Will try to complete on Saturday. Discussed in detail that multiple things will be required for these wounds to heal. She will need to stop smoking, offload the wounds, keep her blood sugars under tight control, etc. She reports that she is willing to do all of that. Will need cardiology and pulmonary clearance for hyperbaric therapy. Also order arterial duplex studies to make sure she has adequate perfusion to heal the wounds. Please call with questions. Time=30min
[2018-10-18] MEDS: ATIVAN PO PRN ×2 (18:18→22:44)
[2018-10-18] MEDS: ROCEPHIN/NS 1 GM/50 ML 1 GM/50 ML BAG IV SCH (20:34)
[2018-10-18] MEDS: AMBIEN PO PRN (21:54)
[2018-10-18] MEDS: LANTUS SUB-Q SCH (22:47)
[2018-10-19] MEDS: NORCO 5/325 PO PRN ×4 (01:45→23:52)
[2018-10-19] MEDS: ATIVAN PO PRN ×5 (03:05→16:22)
[2018-10-19] MEDS: LASIX IV SCH ×2 (06:14→18:18)
[2018-10-19] MEDS: DUONEB *Not for PRN Use IH SCH ×4 (07:54→19:45)
[2018-10-19] MEDS: NEURONTIN PO SCH ×3 (08:03→23:00)
[2018-10-19] MEDS: HumaLOG SUB-Q SCH ×7 (08:45→23:01)
--- NOTE | 2018-10-19 09:56 | Progress Note ---
Assessment and Plan - Patient Problems (1) Chest pain Current Visit: Yes Status: Resolved Plan to address problem: resolved. (2) CHF (congestive heart failure) Current Visit: Yes Status: Chronic Qualifiers: Plan to address problem: Diuretics. (3) CAD (coronary artery disease) of artery bypass graft Current Visit: No Status: Acute Plan to address problem: supportive. (4) Cellulitis Current Visit: No Status: Chronic Qualifiers: Site of cellulitis: extremity Site of cellulitis of extremity: lower extremity Laterality: left Qualified Code(s): L03.116 - Cellulitis of left lower limb Plan to address problem: wound care. (5) Diabetes Current Visit: No Status: Acute Plan to address problem: control BG. Subjective Date of service: 10/19/18 Interval history: Patient is seen/examined, resting in bed,, records reviewed, case discussed, put on mild pain control.Wbc elevated due to steroids. Patient seen/examined, resting in bed, records reviewed, Will start working on d/c plans. Patient seen/examined, resting in bed, I have read the wound surgeon notes, plans for procedure tomorrow. Once stable, post surgery, will d/c home. hyperbaric therapy to be arranged out patient, once cardio/pulm clearance done, and patient in compliant with her care, ie diet, BG, smoking, etc. Will put on some pain meds. Objective - Constitutional Vitals: Vital Signs - 12hr 10/18/18 10/19/18 23:33 05:39 Temperature 97.7 F 97.2 F L Pulse Rate 101 H 98 H Respiratory 18 18 Rate Blood Pressure 128/64 116/57 O2 Sat by Pulse 97 91 Oximetry General appearance: Present: mild distress, well-nourished - EENT Eyes: PERRL, EOM intact ENT: hearing intact, clear oral mucosa Ears: bilateral: normal - Neck Neck: supple, normal ROM - Respiratory Respiratory: bilateral: wheezing - Breasts Breasts: deferred - Cardiovascular Rhythm: regular Heart Sounds: Present: S1 & S2. Absent: gallop, rub Extremities: pulses intact, No edema, normal color, Full ROM - Gastrointestinal General gastrointestinal: Present: soft, non-tender, non-distended, normal bowel sounds Rectal Exam: deferred - Genitourinary Female genitourinary: deferred - Integumentary Integumentary: clear, warm, dry - Musculoskeletal Musculoskeletal: 1, strength equal bilaterally - Neurologic Neurologic: moves all extremities - Psychiatric Psychiatric: memory intact, appropriate mood/affect, intact judgment & insight - Labs CBC & Chem 7: 10/17/18 05:57 10/17/18 05:57 Labs: Abnormal lab results 10/18/18 10/18/18 10/18/18 Range/Units 11:57 17:26 18:00 POC Glucose 302 H 269 H 290 H (70-105) 10/18/18 10/19/18 Range/Units 22:14 07:38 POC Glucose 340 H 304 H (70-105) Medications & Allergies - Medications Allergies/Adverse Reactions: Allergies Penicillins Allergy (Verified 04/03/18 12:43) Itching Home Medications: Home Medications Medication Instructions Recorded Confirmed Last Taken Type Aspirin [Aspirin BABY CHEW TAB] 81 mg PO DAILY #100 tab.chew 09/07/18 10/16/18 Unknown Rx AtorvaSTATin [Lipitor] 40 mg PO QHS #30 tablet 09/07/18 10/16/18 Unknown Rx Gabapentin [Neurontin] 300 mg PO TID #90 capsule 09/07/18 10/16/18 Unknown Rx Insulin Glargine [Lantus VIAL] 20 units SUB-Q QHS #1 vial 09/07/18 10/16/18 Unknown Rx Ipratropium/Albuterol Sulfate 1 ampul IH QIDRT #120 ampul.neb 09/07/18 10/16/18 Unknown Rx [DUONEB *Not for PRN Use*] Lispro Insulin [Humalog] 5 unit SUB-Q ACHS #5 units 09/07/18 10/16/18 Unknown Rx Furosemide [Lasix TAB] 40 mg PO BID #60 tablet 10/08/18 10/16/18 Unknown Rx LORazepam [Ativan] 1 mg PO Q4H PRN #14 tablet 10/08/18 10/16/18 Unknown Rx oxyCODONE /ACETAMINOPHEN [Percocet 2 tab PO Q6H PRN #20 tablet 10/08/18 10/16/18 Unknown Rx 5/325 mg] Lisinopril [Prinivil] 2.5 mg PO QDAY 10/16/18 10/16/18 Unknown History Active Medications: Generic Name Dose Route Start Last Admin Trade Name Freq PRN Reason Stop Dose Admin Acetaminophen/Hydrocodone Bitart 1 each 10/17/18 15:28 10/19/18 08:40 [place] 5/325 PO 1 each Q8H PRN Administration Pain, Moderate (4-6) Albuterol/Ipratropium 1 ampul 10/16/18 20:00 10/19/18 07:54 Duoneb *Not For Prn Use* IH 1 ampul QIDRT LUZ Administration Aspirin 81 mg 10/17/18 10:00 10/18/18 10:44 Baby Aspirin PO 81 mg DAILY LUZ Administration Atorvastatin Calcium 40 mg 10/16/18 22:00 10/18/18 21:06 Lipitor PO 40 mg QHS LUZ Administration Furosemide 40 mg 10/17/18 06:00 10/19/18 06:14 Lasix IV 40 mg 0600,1800 LUZ Administration Gabapentin 300 mg 10/16/18 20:00 10/19/18 08:03 Neurontin PO 300 mg TID LUZ Administration Ceftriaxone Sodium 1 gm in 50 mls @ 100 mls/hr 10/16/18 21:00 10/18/18 20:34 Rocephin/Ns 1 Gm/50 Ml IV 100 mls/hr Q24H LUZ Administration Protocol Ibuprofen 800 mg 10/16/18 18:41 10/18/18 21:07 Motrin PO 800 mg Q8H PRN Administration Pain, Mild (1-3) Insulin Glargine 20 units 10/16/18 22:00 10/18/18 22:47 Lantus SUB-Q 20 units QHS LUZ Administration Insulin Human Lispro 5 unit 10/16/18 22:00 10/19/18 08:45 Humalog SUB-Q 5 unit ACHS LUZ Administration Lisinopril 2.5 mg 10/17/18 10:00 10/18/18 10:44 Zestril PO 2.5 mg QDAY LUZ Administration Lorazepam 1 mg 10/16/18 18:49 10/19/18 08:04 Ativan PO 1 mg Q4H PRN Administration Anxiety Methylprednisolone Sodium Succinate 40 mg 10/16/18 22:00 10/18/18 21:54 Solu-Medrol IV 40 mg Q12H LUZ Administration Zolpidem Tartrate 5 mg 10/16/18 20:12 10/18/18 21:54 Ambien PO 5 mg QHS PRN Administration Sleep
--- NOTE | 2018-10-19 11:48 | Progress Note ---
Assessment and Plan - Patient Problems (1) Chronic ulcer of left foot with fat layer exposed Current Visit: Yes Status: Acute Plan to address problem: Patient is stable. Patient will need debridement in the operating room. She is agreeable to this plan. Will try to complete on Saturday. Procedure, risks, benefits discussed. Consent obtained. Will need cardiology and pulmonary clearance for hyperbaric therapy. Also order arterial duplex studies to make sure she has adequate perfusion to heal the wounds. Please call with questions. Time=10min Subjective Date of service: 10/19/18 Patient Reports: Positive: no new complaints, still having pain Objective Vital Signs - 12hr 10/19/18 10/19/18 10/19/18 05:39 07:54 08:04 Temperature 97.2 F L Pulse Rate 98 H Pulse Rate [ 120 H 117 H Anterior Bilateral Throughout] Respiratory 18 Rate Respiratory 20 20 Rate [Anterior Bilateral Throughout] Blood Pressure 116/57 O2 Sat by Pulse 91 97 Oximetry - General physical appearance obese (morbidly), other (remains very emotional) - Respiratory normal expansion, normal respiratory effort - Integumentary other (dressings on both legs intact) - Labs 10/17/18 05:57 10/17/18 05:57
[2018-10-19] MEDS: ZESTRIL PO SCH (12:30)
[2018-10-19] MEDS: SOLU-Medrol IV SCH ×2 (12:30→23:02)
[2018-10-19] MEDS: BABY ASPIRIN PO SCH (12:31)
--- NOTE | 2018-10-19 15:19 | Vascular Lab Report ---
PROCEDURE: VL ARTERIAL DUPLEX LE BILAT TECHNIQUE: Arterial duplex Doppler ultrasound of bilateral lower extremities performed. Grayscale, c olor flow and spectral waveform images were obtained. HISTORY: assess perfusion for ability to heal wounds COMPARISON: None FINDINGS: There is moderate calcified plaque bilaterally, left more than right. On the right there is biphasic flow throughout the right lower extremity from right external iliac ar candelario to the dorsalis pedis artery. Flow is maintained throughout. There is no focal significant eleva tion in flow velocity to indicate a focal area of stenosis. On the left there is monophasic flow throughout including monophasic flow within the external iliac a rtery. This suggests probable aortoiliac disease. There is diminished flow/flow velocities in the lef t lower extremity from proximal SFA to the DPA as compared to the right. Plaque very notable on the l eft from mid SFA to distal calf. IMPRESSION: Calcified plaque bilaterally, left worse than right. Overall findings indicate mild dise ase on the right and moderate to marked peripheral vascular disease on the left. This document is electronically signed by Skye Fortune MD., October 19 2018 03:18:10 PM ET
[2018-10-19] MEDS: ROCEPHIN/NS 1 GM/50 ML 1 GM/50 ML BAG IV SCH (23:00)
[2018-10-19] MEDS: LANTUS SUB-Q SCH (23:01)
[2018-10-20] MEDS: NORCO 5/325 PO PRN ×2 (05:38→18:31)
[2018-10-20] MEDS: LASIX IV SCH ×2 (05:39→18:31)
[2018-10-20 06:29] LABS: Mean Corpuscular HGB Conc 30 % (30-34); Mean Corpuscular Volume 83 fl (79-97); Platelet Count 172 K/mm3 (140-440)
[2018-10-20 06:31] LABS: Hematocrit 36.6 % (30.3-42.9); Hemoglobin 10.9 gm/dl (10.1-14.3); Red Cell Distribution Width 21.4 % (13.2-15.2)
[2018-10-20 06:49] LABS: BUN/Creatinine Ratio 65; Blood Urea Nitrogen 26 mg/dL (7-17); Calcium 8.2 mg/dL (8.4-10.2); Hemolysis Index 3
[2018-10-20] MEDS: DUONEB *Not for PRN Use IH SCH ×4 (07:41→21:11)
[2018-10-20] MEDS: HumaLOG SUB-Q SCH ×8 (08:38→22:03)
[2018-10-20] MEDS: NEURONTIN PO SCH ×3 (08:42→22:01)
[2018-10-20 09:18] LABS: Basophils % (Manual) 0 % (0.0-1.8); Eosinophils % (Manual) 0 % (0.0-4.3); Total Cells Counted 100
[2018-10-20] MEDS: MORPHINE IV PRN (09:30)
[2018-10-20 09:34] LABS: Anisocytosis 1+; Ovalocytes Few
[2018-10-20 09:35] LABS: Platelet Estimate Consistent w Auto
[2018-10-20] MEDS: ZESTRIL PO SCH (09:42)
[2018-10-20] MEDS: ATIVAN PO PRN ×2 (09:42→18:31)
[2018-10-20] MEDS: SOLU-Medrol IV SCH ×2 (09:43→23:29)
[2018-10-20] MEDS: BABY ASPIRIN PO SCH (09:50)
[2018-10-20] MEDS ORDERED: XYLOCAINE MPF 2% ONE (12:41)
[2018-10-20] MEDS ORDERED: DIPRIVAN 10 MG/ML IV ONE (12:45)
[2018-10-20] MEDS ORDERED: SUBLIMAZE ONE (12:45)
--- NOTE | 2018-10-20 13:21 | Anesthesia Consultation ---
Anesthesia Consult and Med Hx Date of service: 10/20/18 - Airway Anesthetic Teeth Evaluation: Edentulous ROM Head & Neck: Adequate Mental/Hyoid Distance: Adequate Mallampati Class: Class III Intubation Access Assessment: Possibly Difficult - Pre-Operative Health Status ASA Pre-Surgery Classification: ASA4 Proposed Anesthetic Plan: General - Pulmonary Hx Smoking: Yes (stopped 4 weeks ago) Hx Asthma: Yes SOB: Yes COPD: Yes Hx Pneumonia: No Hx Sleep Apnea: No (high risk BRIANA score) - Cardiovascular System Hx Hypertension: Yes Hx Coronary Artery Disease: Yes (CABG x3 (2014)) Hx Heart Attack/AMI: No Hx Percutaneous Transluminal Coronary Angioplasty (PTCA): No Hx Pacemaker: No Hx Internal Defibrillator: No Hx Valvular Heart Disease: No Hx Heart Murmur: No Hx Peripheral Vascular Disease: Yes (diabetic neuropathy, foot ulcers) - Central Nervous System Hx Seizures: No CVA: Yes Hx Back Pain: Yes (chronic pain patient) - Gastrointestinal Hx Ulcer: No - Endocrine Hx End Stage Renal Disease: No Hx Cirrhosis: No Hx Liver Disease: No Hx Insulin Dependent Diabetes: Yes Hx Hypothyroidism: No - Hematic Hx Anemia: No Hx Sickle Cell Disease: No - Other Systems Hx Cancer: No Hx Obesity: Yes (Morbid obesity, BMI - 41.6)
--- NOTE | 2018-10-20 13:21 | Anesthesia Day of Surgery ---
Anesthesia Day of Surgery - Day of Surgery Patient Examined: Yes Patient H&P Reviewed: Yes Patient is NPO: Yes
[2018-10-20] MEDS ORDERED: PROVENTIL IH ONE (13:37)
[2018-10-20] MEDS: NACL 0.9% 1000 ML 1,000 ML IV SCH ×2 (13:40→23:28)
[2018-10-20] MEDS ORDERED: PEPCID IV NR (14:00)
[2018-10-20] MEDS ORDERED: VERSED IV NR (14:00)
[2018-10-20] MEDS ORDERED: NACL 0.9% IR ONE ×2 (14:46)
[2018-10-20] MEDS ORDERED: ZOFRAN ONE (14:50)
--- NOTE | 2018-10-20 14:53 | Post Operative Note ---
Date of procedure: 10/20/18 (Dictation:[id number]) Pre-op diagnosis: left foot diabetic ulcer Post-op diagnosis: same Findings: extensive necrosis of the plantar area of the heel Procedure: left foot ulcer debridement and washout Anesthesia: GRAHAM Surgeon: CAMERON PALENCIA Estimated blood loss: minimal (30cc) Pathology: none Condition: stable Disposition: PACU
[2018-10-20] MEDS ORDERED: DILAUDID ONE (15:10)
[2018-10-20] MEDS ORDERED: LOPRESSOR IV ONE (16:07)
[2018-10-20] MEDS ORDERED: LOPRESSOR IV PRN (16:37)
[2018-10-20] MEDS ORDERED: LOPRESSOR IV SCH (18:00)
--- NOTE | 2018-10-20 19:32 | Consultation ---
History of Present Illness Consult date: 10/20/18 Consult reason: atrial fibrillation History of present illness: The patient is a 58-year-old woman with morbid obesity, coronary artery disease with three-way coronary bypass in 2013, ischemic cardiomyopathy with left ventricular ejection fraction 30-35%. Since August 2018, she has demonstrated a persistent atrial flutter fibrillation, and has been on rate control and oral anticoagulation with Eliquis. Today, the patient underwent debridement surgery for a diabetic foot ulcer, following which there was an increase in the ventricular response to her atrial fibrillation. Otherwise, the patient has no chest pain, no shortness of breath, no palpitations. She is currently back in her room with telemetry and looks and feels comfortable. Past History Past Medical History: atrial fib, CAD, diabetes, heart failure Past Surgical History: CABG Social history: single, lives with family, smoking. denies: alcohol abuse, IV drug use Family history: no significant family history Medications and Allergies Allergies Allergy/AdvReac Type Severity Reaction Status Date / Time Penicillins Allergy Itching Verified 04/03/18 12:43 Home Medications Medication Instructions Recorded Confirmed Last Taken Type Aspirin [Aspirin BABY CHEW TAB] 81 mg PO DAILY #100 tab.chew 09/07/18 10/16/18 Unknown Rx AtorvaSTATin [Lipitor] 40 mg PO QHS #30 tablet 09/07/18 10/16/18 Unknown Rx Gabapentin [Neurontin] 300 mg PO TID #90 capsule 09/07/18 10/16/18 Unknown Rx Insulin Glargine [Lantus VIAL] 20 units SUB-Q QHS #1 vial 09/07/18 10/16/18 Unknown Rx Ipratropium/Albuterol Sulfate 1 ampul IH QIDRT #120 ampul.neb 09/07/18 10/16/18 Unknown Rx [DUONEB *Not for PRN Use*] Lispro Insulin [Humalog] 5 unit SUB-Q ACHS #5 units 09/07/18 10/16/18 Unknown Rx Furosemide [Lasix TAB] 40 mg PO BID #60 tablet 10/08/18 10/16/18 Unknown Rx LORazepam [Ativan] 1 mg PO Q4H PRN #14 tablet 10/08/18 10/16/18 Unknown Rx oxyCODONE /ACETAMINOPHEN [Percocet 2 tab PO Q6H PRN #20 tablet 10/08/18 10/16/18 Unknown Rx 5/325 mg] Lisinopril [Prinivil] 2.5 mg PO QDAY 10/16/18 10/16/18 Unknown History Active Meds: Active Medications Acetaminophen/Hydrocodone Bitart ([place] 5/325) 1 each PO Q6H PRN PRN Reason: Pain, Moderate (4-6) Last Admin: 10/20/18 18:31 Dose: 1 each Documented by: Albuterol/Ipratropium (Duoneb *Not For Prn Use*) 1 ampul IH QIDRT [facility] Last Admin: 10/20/18 16:25 Dose: 1 ampul Documented by: Aspirin (Baby Aspirin) 81 mg PO DAILY [facility] Last Admin: 10/20/18 09:50 Dose: Not Given Documented by: Atorvastatin Calcium (Lipitor) 40 mg PO QHS [facility] Last Admin: 10/19/18 23:00 Dose: 40 mg Documented by: Famotidine (Pepcid) 20 mg IV PREOP NR Stop: 10/20/18 23:59 Last Admin: 10/20/18 13:48 Dose: 20 mg Documented by: Furosemide (Lasix) 40 mg IV 0600,1800 [facility] Last Admin: 10/20/18 18:31 Dose: 40 mg Documented by: Gabapentin (Neurontin) 300 mg PO TID [facility] Last Admin: 10/20/18 14:52 Dose: Not Given Documented by: Guaifenesin (Guaifenesin Dm Syrup) 5 ml PO Q4H PRN PRN Reason: Cough Last Admin: 10/19/18 16:22 Dose: 5 ml Documented by: Ceftriaxone Sodium (Rocephin/Ns 1 Gm/50 Ml) 1 gm in 50 mls @ 100 mls/hr IV Q24H [facility]; Protocol Last Admin: 10/19/18 23:00 Dose: 100 mls/hr Documented by: Sodium Chloride (Nacl 0.9% 1000 Ml) 1,000 mls @ 75 mls/hr IV DIRECT [facility] Last Admin: 10/20/18 13:40 Dose: 75 mls/hr Documented by: Insulin Glargine (Lantus) 20 units SUB-Q QHS [facility] Last Admin: 10/19/18 23:01 Dose: 20 units Documented by: Insulin Human Lispro (Humalog) 5 unit SUB-Q ACHS [facility] Last Admin: 10/20/18 18:39 Dose: Not Given Documented by: Insulin Human Lispro (Humalog) 0 unit SUB-Q [facility]; Protocol Last Admin: 10/20/18 18:40 Dose: Not Given Documented by: Lisinopril (Zestril) 2.5 mg PO QDAY [facility] Last Admin: 10/20/18 09:42 Dose: 2.5 mg Documented by: Lorazepam (Ativan) 1 mg PO Q4H PRN PRN Reason: Anxiety Last Admin: 10/20/18 18:31 Dose: 1 mg Documented by: Methylprednisolone Sodium Succinate (Solu-Medrol) 40 mg IV Q12H [facility] Last Admin: 10/20/18 09:43 Dose: 40 mg Documented by: Metoprolol Tartrate (Lopressor) 2.5 mg IV Q6HR PRN PRN Reason: Tachyarrhythmias Midazolam HCl (Versed) 2 mg IV PREOP NR Stop: 10/20/18 23:59 Last Admin: 10/20/18 13:42 Dose: 2 mg Documented by: Morphine Sulfate (Morphine) 2 mg IV Q6H PRN PRN Reason: Pain , Severe (7-10) Last Admin: 10/20/18 09:30 Dose: 2 mg Documented by: Zolpidem Tartrate (Ambien) 5 mg PO QHS PRN PRN Reason: Sleep Last Admin: 10/18/18 21:54 Dose: 5 mg Documented by: Review of Systems Cardiovascular: palpitations, rapid/irregular heart beat, shortness of breath, no chest pain, no orthopnea, no edema, no syncope, no lightheadedness Physical Examination Vital Signs Temp Pulse Resp BP Pulse Ox 98.5 F 110 H 18 107/64 100 10/16/18 14:27 10/16/18 14:27 10/16/18 14:27 10/16/18 14:27 10/16/18 14:27 General appearance: no acute distress, obese HEENT: Positive: PERRL Neck: Positive: neck supple Cardiac: Positive: irregularly irregular Lungs: Positive: Decreased Breath Sounds Neuro: Positive: Grossly Intact Abdomen: Positive: Soft Female genitourinary: deferred Skin: Positive: Clear Extremities: Absent: edema Results 10/20/18 06:00 10/20/18 06:00 CBC 10/20/18 Range/Units 06:00 WBC 21.5 H (4.5-11.0) K/mm3 RBC 4.40 (3.65-5.03) M/mm3 Hgb 10.9 (10.1-14.3) gm/dl Hct 36.6 (30.3-42.9) % Plt Count 172 (140-440) K/mm3 Comprehensive Metabolic Panel 10/20/18 Range/Units 06:00 Sodium 138 (137-145) mmol/L Potassium 4.7 (3.6-5.0) mmol/L Chloride 101.6 (98-107) mmol/L Carbon Dioxide 25 (22-30) mmol/L BUN 26 H (7-17) mg/dL Creatinine 0.4 L (0.7-1.2) mg/dL Glucose 177 H (65-100) mg/dL Calcium 8.2 L (8.4-10.2) mg/dL EKG interpretations - Telemetry EKG Rhythm: Atrial Fibrillation Assessment and Plan - Patient Problems (1) Rapid atrial fibrillation Current Visit: Yes Status: Acute Plan to address problem: Patient has permanent atrial fibrillation, with increased ventricular response following foot surgery. Will make recommendations for an increase in AV nick blocking drugs for rate control. Resumption of oral anticoagulation will be based on recommendations of surgery.
--- NOTE | 2018-10-20 20:02 | Progress Note ---
Assessment and Plan - Patient Problems (1) Chest pain Current Visit: Yes Status: Resolved Plan to address problem: resolved. (2) CHF (congestive heart failure) Current Visit: Yes Status: Chronic Qualifiers: Plan to address problem: Diuretics. (3) CAD (coronary artery disease) of artery bypass graft Current Visit: No Status: Acute Plan to address problem: supportive. (4) Cellulitis Current Visit: No Status: Chronic Qualifiers: Site of cellulitis: extremity Site of cellulitis of extremity: lower extremity Laterality: left Qualified Code(s): L03.116 - Cellulitis of left lower limb Plan to address problem: wound care. post surgery today. (5) Diabetes Current Visit: No Status: Acute Plan to address problem: control BG. Subjective Date of service: 10/20/18 Interval history: Patient is seen/examined, resting in bed,, records reviewed, case discussed, put on mild pain control.Wbc elevated due to steroids. Patient seen/examined, resting in bed, records reviewed, Will start working on d/c plans. Patient seen/examined, resting in bed, I have read the wound surgeon notes, plans for procedure tomorrow. Once stable, post surgery, will d/c home. hyperbaric therapy to be arranged out patient, once cardio/pulm clearance done, and patient in compliant with her care, ie diet, BG, smoking, etc. Will put on some pain meds. Patient seen/examined, resting in bed post wound debridment, after which she had Vtack, cardiology now on the case, and will clear for ba therapy.riaric, will a lso get PULm consult for the same reason. Objective - Constitutional Vitals: Vital Signs - 12hr 10/20/18 10/20/18 10/20/18 09:37 09:42 11:22 Temperature Pulse Rate Pulse Rate [ 118 H Anterior Bilateral Throughout] Respiratory 18 Rate Respiratory 20 Rate [Anterior Bilateral Throughout] Blood Pressure 117/68 117/68 Blood Pressure [Right] O2 Sat by Pulse Oximetry 10/20/18 10/20/18 10/20/18 11:32 11:34 13:00 Temperature 98.3 F 98 F Pulse Rate 131 H 107 H Pulse Rate [ 127 H Anterior Bilateral Throughout] Respiratory 24 20 Rate Respiratory 20 Rate [Anterior Bilateral Throughout] Blood Pressure 110/60 120/61 Blood Pressure [Right] O2 Sat by Pulse 99 96 Oximetry 10/20/18 10/20/18 10/20/18 15:00 15:05 15:10 Temperature 97.3 F L Pulse Rate 123 H 147 H 142 H Pulse Rate [ Anterior Bilateral Throughout] Respiratory 16 16 15 Rate Respiratory Rate [Anterior Bilateral Throughout] Blood Pressure 122/68 115/52 98/56 Blood Pressure [Right] O2 Sat by Pulse 99 100 100 Oximetry 10/20/18 10/20/18 10/20/18 15:15 15:30 15:45 Temperature 97.6 F Pulse Rate 149 H 119 H 116 H Pulse Rate [ Anterior Bilateral Throughout] Respiratory 14 12 16 Rate Respiratory Rate [Anterior Bilateral Throughout] Blood Pressure 98/56 95/55 94/63 Blood Pressure [Right] O2 Sat by Pulse 99 96 96 Oximetry 10/20/18 10/20/18 10/20/18 16:10 16:30 16:45 Temperature Pulse Rate 130 H 100 H 103 H Pulse Rate [ Anterior Bilateral Throughout] Respiratory 16 14 14 Rate Respiratory Rate [Anterior Bilateral Throughout] Blood Pressure 105/71 105/66 96/48 Blood Pressure [Right] O2 Sat by Pulse 98 98 Oximetry 10/20/18 10/20/18 17:38 19:46 Temperature 98.2 F 98.0 F Pulse Rate 153 H 160 H Pulse Rate [ Anterior Bilateral Throughout] Respiratory 19 18 Rate Respiratory Rate [Anterior Bilateral Throughout] Blood Pressure 107/67 Blood Pressure 152/84 [Right] O2 Sat by Pulse 94 Oximetry General appearance: Present: no acute distress, well-nourished - EENT Eyes: PERRL, EOM intact ENT: hearing intact, clear oral mucosa Ears: bilateral: normal - Neck Neck: supple, normal ROM - Respiratory Respiratory effort: normal Respiratory: bilateral: wheezing - Breasts Breasts: deferred - Cardiovascular Rhythm: regular Heart Sounds: Present: S1 & S2. Absent: gallop, rub Extremities: pulses intact, No edema, normal color, Full ROM - Gastrointestinal General gastrointestinal: Present: soft, non-tender, non-distended, normal bowel sounds Rectal Exam: deferred - Genitourinary Female genitourinary: deferred - Integumentary Integumentary: clear, warm, dry - Musculoskeletal Musculoskeletal: 1, strength equal bilaterally - Neurologic Neurologic: moves all extremities - Psychiatric Psychiatric: memory intact, appropriate mood/affect, intact judgment & insight - Labs CBC & Chem 7: 0422/19 06:00 10/20/18 06:00 Labs: Abnormal lab results 10/19/18 10/20/18 10/20/18 Range/Units 21:22 06:00 06:00 WBC 21.5 H (4.5-11.0) K/mm3 MCH 25 L (28-32) pg RDW 21.4 H (13.2-15.2) % Seg Neuts % (Manual) 98.0 H (40.0-70.0) % Lymphocytes % (Manual) 1.0 L (13.4-35.0) % Seg Neutrophils # Man 21.1 H (1.8-7.7) K/mm3 Lymphocytes # (Manual) 0.2 L (1.2-5.4) K/mm3 BUN 26 H (7-17) mg/dL Creatinine 0.4 L (0.7-1.2) mg/dL Glucose 177 H (65-100) mg/dL POC Glucose 330 H (70-105) Calcium 8.2 L (8.4-10.2) mg/dL 10/20/18 10/20/18 Range/Units 11:41 15:16 WBC (4.5-11.0) K/mm3 MCH (28-32) pg RDW (13.2-15.2) % Seg Neuts % (Manual) (40.0-70.0) % Lymphocytes % (Manual) (13.4-35.0) % Seg Neutrophils # Man (1.8-7.7) K/mm3 Lymphocytes # (Manual) (1.2-5.4) K/mm3 BUN (7-17) mg/dL Creatinine (0.7-1.2) mg/dL Glucose (65-100) mg/dL POC Glucose 178 H 178 H (70-105) Calcium (8.4-10.2) mg/dL Medications & Allergies - Medications Allergies/Adverse Reactions: Allergies Penicillins Allergy (Verified 04/03/18 12:43) Itching Home Medications: Home Medications Medication Instructions Recorded Confirmed Last Taken Type Aspirin [Aspirin BABY CHEW TAB] 81 mg PO DAILY #100 tab.chew 09/07/18 10/16/18 Unknown Rx AtorvaSTATin [Lipitor] 40 mg PO QHS #30 tablet 09/07/18 10/16/18 Unknown Rx Gabapentin [Neurontin] 300 mg PO TID #90 capsule 09/07/18 10/16/18 Unknown Rx Insulin Glargine [Lantus VIAL] 20 units SUB-Q QHS #1 vial 09/07/18 10/16/18 Unknown Rx Ipratropium/Albuterol Sulfate 1 ampul IH QIDRT #120 ampul.neb 09/07/18 10/16/18 Unknown Rx [DUONEB *Not for PRN Use*] Lispro Insulin [Humalog] 5 unit SUB-Q ACHS #5 units 09/07/18 10/16/18 Unknown Rx Furosemide [Lasix TAB] 40 mg PO BID #60 tablet 10/08/18 10/16/18 Unknown Rx LORazepam [Ativan] 1 mg PO Q4H PRN #14 tablet 10/08/18 10/16/18 Unknown Rx oxyCODONE /ACETAMINOPHEN [Percocet 2 tab PO Q6H PRN #20 tablet 10/08/18 10/16/18 Unknown Rx 5/325 mg] Lisinopril [Prinivil] 2.5 mg PO QDAY 10/16/18 10/16/18 Unknown History Active Medications: Generic Name Dose Route Start Last Admin Trade Name Freq PRN Reason Stop Dose Admin Acetaminophen/Hydrocodone Bitart 1 each 10/19/18 10:01 10/20/18 18:31 [place] 5/325 PO 1 each Q6H PRN Administration Pain, Moderate (4-6) Albuterol/Ipratropium 1 ampul 10/16/18 20:00 10/20/18 16:25 Duoneb *Not For Prn Use* 1 ampul QIDRT [facility] Administration Aspirin 81 mg 10/17/18 10:00 10/20/18 09:50 Baby Aspirin PO Not Given DAILY [facility] Atorvastatin Calcium 40 mg 10/16/18 22:00 10/19/18 23:00 Lipitor PO 40 mg QHS [facility] Administration Digoxin 0.25 mg 10/20/18 20:00 Lanoxin IV 10/21/18 00:01 Q6HR [facility] Digoxin 0.25 mg 10/21/18 17:00 Lanoxin PO DAILY@1700 [facility] Famotidine 20 mg 10/20/18 14:00 10/20/18 13:48 Pepcid IV 10/20/18 23:59 20 mg PREOP NR Administration Furosemide 40 mg 10/17/18 06:00 10/20/18 18:31 Lasix IV 40 mg 0600,1800 [facility] Administration Gabapentin 300 mg 10/16/18 20:00 10/20/18 14:52 Neurontin PO Not Given TID [facility] Guaifenesin 5 ml 10/19/18 13:24 10/19/18 16:22 Guaifenesin Dm Syrup PO 5 ml Q4H PRN Administration Cough Ceftriaxone Sodium 1 gm in 50 mls @ 100 mls/hr 10/16/18 21:00 10/19/18 23:00 Rocephin/Ns 1 Gm/50 Ml IV 100 mls/hr Q24H [facility] Administration Protocol Sodium Chloride 1,000 mls @ 75 mls/hr 10/20/18 14:00 10/20/18 13:40 Nacl 0.9% 1000 Ml IV 75 mls/hr DIRECT [facility] Administration Insulin Glargine 20 units 10/16/18 22:00 10/19/18 23:01 Lantus SUB-Q 20 units QHS [facility] Administration Insulin Human Lispro 5 unit 10/16/18 22:00 10/20/18 18:39 Humalog SUB-Q Not Given ACHS [facility] Insulin Human Lispro 0 unit 10/19/18 11:30 10/20/18 18:40 Humalog SUB-Q Not Given ACHS [facility] Protocol Lisinopril 2.5 mg 10/17/18 10:00 10/20/18 09:42 Zestril PO 2.5 mg QDAY [facility] Administration Lorazepam 1 mg 10/16/18 18:49 10/20/18 18:31 Ativan PO 1 mg Q4H PRN Administration Anxiety Methylprednisolone Sodium Succinate 40 mg 10/16/18 22:00 10/20/18 09:43 Solu-Medrol IV 40 mg Q12H [facility] Administration Metoprolol Tartrate 2.5 mg 10/20/18 16:37 Lopressor IV Q6HR PRN Tachyarrhythmias Metoprolol Tartrate 25 mg 10/20/18 20:00 Lopressor PO Q6H [facility] Midazolam HCl 2 mg 10/20/18 14:00 10/20/18 13:42 Versed IV 10/20/18 23:59 2 mg PREOP NR Administration Morphine Sulfate 2 mg 10/20/18 08:59 10/20/18 09:30 Morphine IV 2 mg Q6H PRN Administration Pain , Severe (7-10) Zolpidem Tartrate 5 mg 10/16/18 20:12 10/18/18 21:54 Ambien PO 5 mg QHS PRN Administration Sleep
--- NOTE | 2018-10-20 20:05 | Operative Report ---
PREOPERATIVE DIAGNOSIS: Left foot diabetic ulcer. POSTOPERATIVE DIAGNOSIS: Left foot diabetic ulcer. PROCEDURE: Left foot ulcer debridement and washout. ATTENDING PHYSICIAN: Shane Kearns MD ANESTHESIA: General. ESTIMATED BLOOD LOSS: Minimal. FLUIDS: 200 mL. FINDINGS: Extensive necrosis of the skin and subcutaneous tissue involving the left heel region. The patient has had a previous transmetatarsal amputation. DRAINS: None. SPECIMENS: None. COMPLICATIONS: Stable, transferred to Recovery Room. INDICATIONS: This is a 58-year-old female with multiple medical problems, who presented to the hospital with complaints of shortness of breath. General Surgery was consulted for debridement of wounds. The patient was assessed to be a need for operative debridement. Procedure, risks and benefits were discussed with the patient. Risks included but were not limited to infection, bleeding, pain, injury to surrounding structures, possible need for further procedures in the future. The patient understood and consented. OPERATIVE NOTE: The patient was brought to the operating room and placed on the table in supine position. After adequate general anesthesia was established, the patient was prepped and draped in usual sterile fashion. Timeout was called. The patient was already on antibiotics. SCDs were not placed as we were operating in that area. I began by debriding the open wound near the left heel. During the evaluation, we saw purulent fluid emanating from the medial aspect. We continued to follow that. There was a tract going to the medial aspect of the heel. It appeared as though the overlying tissue was necrotic. This was all excised and indeed found to be necrotic. We found multiple areas of venous thromboses consistent with necrosis of the tissue. We debrided through most of the subcutaneous tissue, which was necrotic, getting down to areas of muscle and ligaments. The wound was then pulse lavaged to thoroughly clean out the area. Wound was packed with Betadine-soaked gauze. Dressings were placed. The patient tolerated procedure well. There were no complications. All counts were correct at the end of the case. JOB# [id number] JUSTIN/JACK
[2018-10-20] MEDS: LOPRESSOR PO SCH (21:59)
[2018-10-20] MEDS: MORPHINE IV SCH (21:59)
[2018-10-20] MEDS: LANOXIN IV SCH ×2 (22:00→23:31)
--- NOTE | 2018-10-20 23:02 | Consultation ---
History of Present Illness Consult date: 10/20/18 Reason for consult: cough, COPD History of present illness: PULMONARY AND CRITICAL CARE CONSULTATION. DR. GUTIÉRREZ THANK YOU FOR ASKING US TO PARTICIPATE IN THE CARE OF THIS PATIENT. The patient is a 58-year-old woman with morbid obesity, coronary artery disease with three-way coronary bypass in 2013, ischemic cardiomyopathy with left ventricular ejection fraction 30-35%. Since August 2018, she has demonstrated a persistent atrial flutter fibrillation, and has been on rate control and oral anticoagulation with Eliquis. Patient also has diabetes. History of smoking, 3/4 pack for 45 years. Patient still smoking. counselled her to quit smoking. Denies alcohol or drug abuse.Allergic to pencillin. Patient sleeping at this time. Patient on 2L O2, Saturation at 94%. Today patient underwent Left foot debridement and washout. Patient has a history of diabetes, HTN, COPD. 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 Patient morbidly obese, denies any symptoms of BRIANA. Past History Past Medical History: atrial fib, CAD, diabetes, heart failure Past Surgical History: CABG Social history: single, lives with family, smoking. denies: alcohol abuse, IV drug use Family history: no significant family history Medications and Allergies Allergies Allergy/AdvReac Type Severity Reaction Status Date / Time Penicillins Allergy Itching Verified 04/03/18 12:43 Home Medications Medication Instructions Recorded Confirmed Last Taken Type Aspirin [Aspirin BABY CHEW TAB] 81 mg PO DAILY #100 tab.chew 09/07/18 10/16/18 Unknown Rx AtorvaSTATin [Lipitor] 40 mg PO QHS #30 tablet 09/07/18 10/16/18 Unknown Rx Gabapentin [Neurontin] 300 mg PO TID #90 capsule 09/07/18 10/16/18 Unknown Rx Insulin Glargine [Lantus VIAL] 20 units SUB-Q QHS #1 vial 09/07/18 10/16/18 Unknown Rx Ipratropium/Albuterol Sulfate 1 ampul IH QIDRT #120 ampul.neb 09/07/18 10/16/18 Unknown Rx [DUONEB *Not for PRN Use*] Lispro Insulin [Humalog] 5 unit SUB-Q ACHS #5 units 09/07/18 10/16/18 Unknown Rx Furosemide [Lasix TAB] 40 mg PO BID #60 tablet 10/08/18 10/16/18 Unknown Rx LORazepam [Ativan] 1 mg PO Q4H PRN #14 tablet 10/08/18 10/16/18 Unknown Rx oxyCODONE /ACETAMINOPHEN [Percocet 2 tab PO Q6H PRN #20 tablet 10/08/18 10/16/18 Unknown Rx 5/325 mg] Lisinopril [Prinivil] 2.5 mg PO QDAY 10/16/18 10/16/18 Unknown History Active Meds: Active Medications Acetaminophen/Hydrocodone Bitart ([place] 5/325) 1 each PO Q6H PRN PRN Reason: Pain, Moderate (4-6) Last Admin: 10/20/18 18:31 Dose: 1 each Documented by: Albuterol/Ipratropium (Duoneb *Not For Prn Use*) 1 ampul IH QIDRT [facility] Last Admin: 10/20/18 21:11 Dose: 1 ampul Documented by: Aspirin (Baby Aspirin) 81 mg PO DAILY [facility] Last Admin: 10/20/18 09:50 Dose: Not Given Documented by: Atorvastatin Calcium (Lipitor) 40 mg PO QHS [facility] Last Admin: 10/20/18 22:01 Dose: 40 mg Documented by: Digoxin (Lanoxin) 0.25 mg IV Q6HR [facility] Stop: 10/21/18 00:01 Last Admin: 10/20/18 22:00 Dose: 0.25 mg Documented by: Digoxin (Lanoxin) 0.25 mg PO DAILY@1700 LUZ Famotidine (Pepcid) 20 mg IV PREOP NR Stop: 10/20/18 23:59 Last Admin: 10/20/18 13:48 Dose: 20 mg Documented by: Furosemide (Lasix) 40 mg IV 0600,1800 [facility] Last Admin: 10/20/18 18:31 Dose: 40 mg Documented by: Gabapentin (Neurontin) 300 mg PO TID [facility] Last Admin: 10/20/18 22:01 Dose: 300 mg Documented by: Guaifenesin (Guaifenesin Dm Syrup) 5 ml PO Q4H PRN PRN Reason: Cough Last Admin: 10/19/18 16:22 Dose: 5 ml Documented by: Ceftriaxone Sodium (Rocephin/Ns 1 Gm/50 Ml) 1 gm in 50 mls @ 100 mls/hr IV Q24H [facility]; Protocol Last Admin: 10/19/18 23:00 Dose: 100 mls/hr Documented by: Sodium Chloride (Nacl 0.9% 1000 Ml) 1,000 mls @ 75 mls/hr IV DIRECT [facility] Last Admin: 10/20/18 13:40 Dose: 75 mls/hr Documented by: Insulin Glargine (Lantus) 20 units SUB-Q QHS [facility] Last Admin: 10/19/18 23:01 Dose: 20 units Documented by: Insulin Human Lispro (Humalog) 5 unit SUB-Q [facility] Last Admin: 10/20/18 22:02 Dose: 5 unit Documented by: Insulin Human Lispro (Humalog) 0 unit SUB-Q [facility]; Protocol Last Admin: 10/20/18 22:03 Dose: 3 unit Documented by: Lisinopril (Zestril) 2.5 mg PO QDAY [facility] Last Admin: 10/20/18 09:42 Dose: 2.5 mg Documented by: Lorazepam (Ativan) 1 mg PO Q4H PRN PRN Reason: Anxiety Last Admin: 10/20/18 18:31 Dose: 1 mg Documented by: Methylprednisolone Sodium Succinate (Solu-Medrol) 40 mg IV Q12H [facility] Last Admin: 10/20/18 09:43 Dose: 40 mg Documented by: Metoprolol Tartrate (Lopressor) 2.5 mg IV Q6HR PRN PRN Reason: Tachyarrhythmias Metoprolol Tartrate (Lopressor) 25 mg PO Q6H [facility] Last Admin: 10/20/18 21:59 Dose: 25 mg Documented by: Midazolam HCl (Versed) 2 mg IV PREOP NR Stop: 10/20/18 23:59 Last Admin: 10/20/18 13:42 Dose: 2 mg Documented by: Morphine Sulfate (Morphine) 2 mg IV Q6H PRN PRN Reason: Pain , Severe (7-10) Last Admin: 10/20/18 09:30 Dose: 2 mg Documented by: Morphine Sulfate (Morphine) 2 mg IV Q4H [facility] Stop: 10/21/18 10:01 Last Admin: 10/20/18 21:59 Dose: 2 mg Documented by: Zolpidem Tartrate (Ambien) 5 mg PO QHS PRN PRN Reason: Sleep Last Admin: 10/18/18 21:54 Dose: 5 mg Documented by: Review of Systems All systems: negative Physical Examination Vital signs: Vital Signs Temp Pulse Resp BP Pulse Ox 98.5 F 110 H 18 107/64 100 10/16/18 14:27 10/16/18 14:27 10/16/18 14:27 10/16/18 14:27 10/16/18 14:27 General appearance: no acute distress, alert, agitated Eyes: non-icteric ENT: oropharynx moist Neck: supple, no JVD Ascultation: Bilateral: wheezes (mild), rhonchi (mild) Cardiovascular: regular rate and rhythm Gastrointestinal: normoactive bowel sounds, soft, non-tender Integumentary: normal Extremities: no cyanosis, edema Musculoskeletal: other (left foot debridement) Gait: other (patient is in bed at this time.) normal mental status, non-focal exam, pupils equal and round, CN II-XII normal anxious Results - Laboratory Findings CBC and BMP: 10/20/18 06:00 10/20/18 06:00 PT/INR, D-dimer PT 16.6 Sec. (12.2-14.9) H 10/16/18 14:39 INR 1.26 (0.87-1.13) H 10/16/18 14:39 Abnormal lab findings: Abnormal Labs 10/16/18 10/16/18 10/16/18 14:39 14:39 14:39 WBC 16.6 H MCH 26 L RDW 21.6 H Lymph % (Auto) 10.6 L [place] # 0.9 H Seg Neutrophils % 82.9 H Seg Neuts % (Manual) Lymphocytes % (Manual) Nucleated RBC % Seg Neutrophils # 13.8 H Seg Neutrophils # Man Lymphocytes # (Manual) PT 16.6 H INR 1.26 H Chloride 107.9 H Carbon Dioxide 21 L BUN Creatinine 0.5 L Glucose 182 H POC Glucose Calcium 7.6 L NT-Pro-B Natriuret Pep U Epithel Cells (Auto) 10/16/18 10/16/18 10/16/18 14:39 17:55 19:30 WBC MCH RDW Lymph % (Auto) [place] # Seg Neutrophils % Seg Neuts % (Manual) Lymphocytes % (Manual) Nucleated RBC % Seg Neutrophils # Seg Neutrophils # Man Lymphocytes # (Manual) PT INR Chloride Carbon Dioxide BUN Creatinine Glucose POC Glucose 164 H Calcium NT-Pro-B Natriuret Pep 4638 H U Epithel Cells (Auto) 15.0 H 10/16/18 10/17/18 10/17/18 21:59 05:57 05:57 WBC 17.5 H MCH 25 L RDW 22.3 H Lymph % (Auto) [place] # Seg Neutrophils % Seg Neuts % (Manual) 91.0 H Lymphocytes % (Manual) 7.0 L Nucleated RBC % 1.0 H Seg Neutrophils # Seg Neutrophils # Man 15.9 H Lymphocytes # (Manual) PT INR Chloride Carbon Dioxide BUN 18 H Creatinine 0.6 L Glucose 197 H POC Glucose 174 H Calcium 7.8 L NT-Pro-B Natriuret Pep U Epithel Cells (Auto) 10/17/18 10/17/18 10/17/18 07:49 12:03 16:59 WBC MCH RDW Lymph % (Auto) [place] # Seg Neutrophils % Seg Neuts % (Manual) Lymphocytes % (Manual) Nucleated RBC % Seg Neutrophils # Seg Neutrophils # Man Lymphocytes # (Manual) PT INR Chloride Carbon Dioxide BUN Creatinine Glucose POC Glucose 195 H 308 H 307 H Calcium NT-Pro-B Natriuret Pep U Epithel Cells (Auto) 10/17/18 10/18/18 10/18/18 21:30 08:20 11:57 WBC MCH RDW Lymph % (Auto) [place] # Seg Neutrophils % Seg Neuts % (Manual) Lymphocytes % (Manual) Nucleated RBC % Seg Neutrophils # Seg Neutrophils # Man Lymphocytes # (Manual) PT INR Chloride Carbon Dioxide BUN Creatinine Glucose POC Glucose 344 H 322 H 302 H Calcium NT-Pro-B Natriuret Pep U Epithel Cells (Auto) 10/18/18 10/18/18 10/18/18 17:26 18:00 22:14 WBC MCH RDW Lymph % (Auto) [place] # Seg Neutrophils % Seg Neuts % (Manual) Lymphocytes % (Manual) Nucleated RBC % Seg Neutrophils # Seg Neutrophils # Man Lymphocytes # (Manual) PT INR Chloride Carbon Dioxide BUN Creatinine Glucose POC Glucose 269 H 290 H 340 H Calcium NT-Pro-B Natriuret Pep U Epithel Cells (Auto) 10/19/18 10/19/18 10/19/18 07:38 11:46 17:31 WBC MCH RDW Lymph % (Auto) [place] # Seg Neutrophils % Seg Neuts % (Manual) Lymphocytes % (Manual) Nucleated RBC % Seg Neutrophils # Seg Neutrophils # Man Lymphocytes # (Manual) PT INR Chloride Carbon Dioxide BUN Creatinine Glucose POC Glucose 304 H 234 H 319 H Calcium NT-Pro-B Natriuret Pep U Epithel Cells (Auto) 10/19/18 10/20/18 10/20/18 21:22 06:00 06:00 WBC 21.5 H MCH 25 L RDW 21.4 H Lymph % (Auto) [place] # Seg Neutrophils % Seg Neuts % (Manual) 98.0 H Lymphocytes % (Manual) 1.0 L Nucleated RBC % Seg Neutrophils # Seg Neutrophils # Man 21.1 H Lymphocytes # (Manual) 0.2 L PT INR Chloride Carbon Dioxide BUN 26 H Creatinine 0.4 L Glucose 177 H POC Glucose 330 H Calcium 8.2 L NT-Pro-B Natriuret Pep U Epithel Cells (Auto) 10/20/18 10/20/18 11:41 15:16 WBC MCH RDW Lymph % (Auto) [place] # Seg Neutrophils % Seg Neuts % (Manual) Lymphocytes % (Manual) Nucleated RBC % Seg Neutrophils # Seg Neutrophils # Man Lymphocytes # (Manual) PT INR Chloride Carbon Dioxide BUN Creatinine Glucose POC Glucose 178 H 178 H Calcium NT-Pro-B Natriuret Pep U Epithel Cells (Auto) - Diagnostic Findings Chest x-ray: report reviewed (Mild CHF), image reviewed Assessment and Plan The patient is a 58-year-old woman with morbid obesity, coronary artery disease with three-way coronary bypass in 2013, ischemic cardiomyopathy with left ventricular ejection fraction 30-35%. Since August 2018, she has demonstrated a persistent atrial flutter fibrillation, and has been on rate control and oral anticoagulation with Eliquis. Patient also has diabetes. History of smoking, 3/4 pack for 45 years. Patient still smoking. counselled her to quit smoking. Denies alcohol or drug abuse.Allergic to pencillin. Patient sleeping at this time. Patient on 2L O2, Saturation at 94%. Today patient underwent Left foot debridement and washout. Patient has a history of diabetes, HTN, COPD. 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 Patient morbidly obese, denies any symptoms of BRIANA. - Patient Problems (1) Chronic ulcer of left foot with fat layer exposed Current Visit: Yes Status: Acute Plan to address problem: Patient underwent left foot debridement and washout.Patient presently on Rocephan (2) Rapid atrial fibrillation Current Visit: Yes Status: Acute Plan to address problem: Patient is on Metoprolol and Digoxin. Recommend Anticoagulation if no contraindications (3) CHF (congestive heart failure) Current Visit: Yes Status: Chronic Qualifiers: Plan to address problem: Management as per cardiology (4) Diabetes Current Visit: No Status: Acute Plan to address problem: Management as per primary care. (5) Hypertension Current Visit: No Status: Acute Qualifiers: Hypertension type: essential hypertension Qualified Code(s): I10 - Essential (primary) hypertension Plan to address problem: Management as per primary care (6) COPD exacerbation Current Visit: No Status: Chronic Plan to address problem: O2 2L via nasal cannula. Albuterol/Atrovent aerosol treatment q6hrs Continue IV Solumedrol Continue Rocephan SCDs Recommend GI prophylaxis
[2018-10-20] MEDS: ROCEPHIN/NS 1 GM/50 ML 1 GM/50 ML BAG IV SCH (23:28)
[2018-10-20] MEDS: LANTUS SUB-Q SCH (23:29)
[2018-10-21] MEDS: MORPHINE IV SCH ×3 (02:44→09:48)
[2018-10-21] MEDS: LOPRESSOR PO SCH ×4 (02:49→22:08)
[2018-10-21] MEDS: LASIX IV SCH ×2 (06:09→17:54)
[2018-10-21] MEDS: NORCO 5/325 PO PRN ×2 (07:41→17:52)
[2018-10-21] MEDS: NEURONTIN PO SCH ×3 (08:00→22:13)
[2018-10-21] MEDS: HumaLOG SUB-Q SCH ×8 (08:38→22:11)
[2018-10-21] MEDS: DUONEB *Not for PRN Use IH SCH ×2 (09:17→11:23)
[2018-10-21] MEDS: SOLU-Medrol IV SCH ×2 (09:47→22:08)
[2018-10-21] MEDS: BABY ASPIRIN PO SCH (09:47)
[2018-10-21] MEDS: ZESTRIL PO SCH (09:47)
--- NOTE | 2018-10-21 12:34 | Progress Note ---
Assessment and Plan s/p left foot debridement Permanent Atrial fib/flutter on metoprolol and digoxin on eliquis for oral anticoagulation therapy. Ischemic cardiomyopathy with EF 30-35% CAD s/p 3v CABG in 2014 Cor [place] COPD Severe pulmonary hypertension Tobacco abuse Htn DM PAD s/p TMA Chronic non-compliance with medical therapy and medical follow up Recommendations Continue medical therapy for permanent atrial fibrillation, ischemic cardiomyopathy and coronary artery disease. We will increase metoprolol for optimal rate control of chronic atrial fibrillation. Subjective Date of service: 10/21/18 Interval history: Patient is asking for pain medications. She denies usual shortness of breath, chest pain and palpitations. Objective Vital Signs Temp Pulse Pulse Resp Resp BP BP 10/21/18 09:47 93 H 120/58 10/21/18 08:45 99 H 124/58 10/21/18 05:56 98.2 F 78 18 111/68 10/21/18 02:49 120 H 119/72 10/21/18 02:44 22 10/21/18 00:00 146 H 10/20/18 23:38 98.0 F 83 18 119/72 10/20/18 23:31 110 H 100/72 10/20/18 22:00 122 H 107/67 10/20/18 21:59 122 H 107/67 10/20/18 21:50 10/20/18 21:25 132 H 20 10/20/18 21:16 83 20 10/20/18 21:09 100 H 10/20/18 19:46 98.0 F 160 H 18 107/67 10/20/18 17:38 98.2 F 153 H 19 152/84 10/20/18 16:45 103 H 14 96/48 10/20/18 16:30 100 H 14 105/66 10/20/18 16:10 130 H 16 105/71 10/20/18 15:45 116 H 16 94/63 10/20/18 15:30 97.6 F 119 H 12 95/55 10/20/18 15:15 149 H 14 98/56 10/20/18 15:10 142 H 15 98/56 10/20/18 15:05 147 H 16 115/52 10/20/18 15:00 97.3 F L 123 H 16 122/68 10/20/18 13:00 98 F 107 H 20 120/61 Pulse Ox 10/21/18 09:47 10/21/18 08:45 10/21/18 05:56 94 10/21/18 02:49 10/21/18 02:44 10/21/18 00:00 10/20/18 23:38 91 10/20/18 23:31 10/20/18 22:00 10/20/18 21:59 10/20/18 21:50 94 10/20/18 21:25 10/20/18 21:16 10/20/18 21:09 98 10/20/18 19:46 94 10/20/18 17:38 10/20/18 16:45 98 10/20/18 16:30 98 10/20/18 16:10 10/20/18 15:45 96 10/20/18 15:30 96 10/20/18 15:15 99 10/20/18 15:10 100 10/20/18 15:05 100 10/20/18 15:00 99 10/20/18 13:00 96 - Physical Examination General: No Apparent Distress HEENT: Positive: PERRL Neck: Positive: neck supple Cardiac: Positive: irregularly irregular Lungs: Positive: Wheezes Neuro: Positive: Grossly Intact
[2018-10-21] MEDS: MORPHINE IV PRN ×2 (15:39→22:08)
[2018-10-21] MEDS: ATIVAN PO PRN (15:39)
[2018-10-21] MEDS: ROBITUSSIN AC PO PRN (17:52)
[2018-10-21] MEDS: LANOXIN PO SCH (17:53)
[2018-10-21] MEDS: ATROVENT IH SCH (20:36)
[2018-10-21] MEDS: PROVENTIL IH SCH (20:36)
--- NOTE | 2018-10-21 20:51 | Progress Note ---
Assessment and Plan . Patient awake. Patient is on room air. O2 saturation 99%. Patient has left foot wound debridement and wash out.Patient afebrile but has leukocytosis. Complaining non specific bodyaches. - Patient Problems (1) Chronic ulcer of left foot with fat layer exposed Current Visit: Yes Status: Acute Plan to address problem: Patient underwent left foot debridement and washout.Patient presently on Rocephan (2) Rapid atrial fibrillation Current Visit: Yes Status: Acute Plan to address problem: Patient is on Metoprolol and Digoxin. Recommend Anticoagulation if no contraindications (3) CHF (congestive heart failure) Current Visit: Yes Status: Chronic Qualifiers: Plan to address problem: Management as per cardiology (4) Diabetes Current Visit: No Status: Acute Plan to address problem: Management as per primary care. (5) Hypertension Current Visit: No Status: Acute Qualifiers: Hypertension type: essential hypertension Qualified Code(s): I10 - Essential (primary) hypertension Plan to address problem: Management as per primary care (6) COPD exacerbation Current Visit: No Status: Chronic Plan to address problem: O2 2L via nasal cannula. Albuterol/Atrovent aerosol treatment q6hrs Continue IV Solumedrol Continue Rocephan SCDs Recommend GI prophylaxis Subjective Date of service: 10/21/18 Interval history: Patient awake. Patient is on room air. O2 saturation 99%. Patient has left foot wound debridement and wash out.Patient afebrile but has leukocytosis. Complaining non specific bodyaches. Objective Vital Signs - 12hr 10/21/18 10/21/18 10/21/18 08:45 09:47 10:00 Temperature Pulse Rate 99 H 93 H Pulse Rate [ Anterior Bilateral Throughout] Pulse Rate [ 90 Apical] Pulse Rate [ 90 Left Radial] Pulse Rate [ 90 Right Radial] Respiratory 19 Rate Respiratory Rate [Anterior Bilateral Throughout] Blood Pressure 124/58 120/58 O2 Sat by Pulse 98 Oximetry 10/21/18 10/21/18 10/21/18 11:25 11:30 11:45 Temperature Pulse Rate Pulse Rate [ 112 H 124 H Anterior Bilateral Throughout] Pulse Rate [ Apical] Pulse Rate [ Left Radial] Pulse Rate [ Right Radial] Respiratory Rate Respiratory 18 18 Rate [Anterior Bilateral Throughout] Blood Pressure O2 Sat by Pulse 95 Oximetry 10/21/18 10/21/18 10/21/18 13:02 13:51 16:00 Temperature Pulse Rate 89 101 H Pulse Rate [ Anterior Bilateral Throughout] Pulse Rate [ Apical] Pulse Rate [ Left Radial] Pulse Rate [ Right Radial] Respiratory Rate Respiratory Rate [Anterior Bilateral Throughout] Blood Pressure 114/54 135/86 O2 Sat by Pulse Oximetry 10/21/18 10/21/18 10/21/18 17:07 17:08 17:53 Temperature 97.8 F Pulse Rate 106 H 106 H Pulse Rate [ Anterior Bilateral Throughout] Pulse Rate [ Apical] Pulse Rate [ Left Radial] Pulse Rate [ Right Radial] Respiratory 18 Rate Respiratory Rate [Anterior Bilateral Throughout] Blood Pressure 133/75 133/75 O2 Sat by Pulse 92 Oximetry 10/21/18 19:44 Temperature 97.5 F L Pulse Rate 97 H Pulse Rate [ Anterior Bilateral Throughout] Pulse Rate [ Apical] Pulse Rate [ Left Radial] Pulse Rate [ Right Radial] Respiratory 14 Rate Respiratory Rate [Anterior Bilateral Throughout] Blood Pressure 140/90 O2 Sat by Pulse 92 Oximetry Constitutional: no acute distress, alert, agitated Eyes: non-icteric ENT: oropharynx moist Neck: supple, no JVD Ascultation: Bilateral: wheezes (mild), rhonchi (mild) Cardiovascular: regular rate and rhythm Gastrointestinal: normoactive bowel sounds, soft, non-tender Integumentary: normal Extremities: no cyanosis, edema Neurologic: normal mental status, non-focal exam, pupils equal and round, CN II- XII normal Psychiatric: anxious CBC and BMP: 10/20/18 06:00 10/20/18 06:00 ABG, PT/INR, D-dimer: PT/INR, D-dimer PT 16.6 Sec. (12.2-14.9) H 10/16/18 14:39 INR 1.26 (0.87-1.13) H 10/16/18 14:39 Abnormal lab findings: Abnormal Labs 10/16/18 10/16/18 10/16/18 14:39 14:39 14:39 WBC 16.6 H MCH 26 L RDW 21.6 H Lymph % (Auto) 10.6 L [place] # 0.9 H Seg Neutrophils % 82.9 H Seg Neuts % (Manual) Lymphocytes % (Manual) Nucleated RBC % Seg Neutrophils # 13.8 H Seg Neutrophils # Man Lymphocytes # (Manual) PT 16.6 H INR 1.26 H Chloride 107.9 H Carbon Dioxide 21 L BUN Creatinine 0.5 L Glucose 182 H POC Glucose Calcium 7.6 L NT-Pro-B Natriuret Pep U Epithel Cells (Auto) 10/16/18 10/16/18 10/16/18 14:39 17:55 19:30 WBC MCH RDW Lymph % (Auto) [place] # Seg Neutrophils % Seg Neuts % (Manual) Lymphocytes % (Manual) Nucleated RBC % Seg Neutrophils # Seg Neutrophils # Man Lymphocytes # (Manual) PT INR Chloride Carbon Dioxide BUN Creatinine Glucose POC Glucose 164 H Calcium NT-Pro-B Natriuret Pep 4638 H U Epithel Cells (Auto) 15.0 H 10/16/18 10/17/18 10/17/18 21:59 05:57 05:57 WBC 17.5 H MCH 25 L RDW 22.3 H Lymph % (Auto) [place] # Seg Neutrophils % Seg Neuts % (Manual) 91.0 H Lymphocytes % (Manual) 7.0 L Nucleated RBC % 1.0 H Seg Neutrophils # Seg Neutrophils # Man 15.9 H Lymphocytes # (Manual) PT INR Chloride Carbon Dioxide BUN 18 H Creatinine 0.6 L Glucose 197 H POC Glucose 174 H Calcium 7.8 L NT-Pro-B Natriuret Pep U Epithel Cells (Auto) 10/17/18 10/17/18 10/17/18 07:49 12:03 16:59 WBC MCH RDW Lymph % (Auto) [place] # Seg Neutrophils % Seg Neuts % (Manual) Lymphocytes % (Manual) Nucleated RBC % Seg Neutrophils # Seg Neutrophils # Man Lymphocytes # (Manual) PT INR Chloride Carbon Dioxide BUN Creatinine Glucose POC Glucose 195 H 308 H 307 H Calcium NT-Pro-B Natriuret Pep U Epithel Cells (Auto) 10/17/18 10/18/18 10/18/18 21:30 08:20 11:57 WBC MCH RDW Lymph % (Auto) [place] # Seg Neutrophils % Seg Neuts % (Manual) Lymphocytes % (Manual) Nucleated RBC % Seg Neutrophils # Seg Neutrophils # Man Lymphocytes # (Manual) PT INR Chloride Carbon Dioxide BUN Creatinine Glucose POC Glucose 344 H 322 H 302 H Calcium NT-Pro-B Natriuret Pep U Epithel Cells (Auto) 10/18/18 10/18/18 10/18/18 17:26 18:00 22:14 WBC MCH RDW Lymph % (Auto) [place] # Seg Neutrophils % Seg Neuts % (Manual) Lymphocytes % (Manual) Nucleated RBC % Seg Neutrophils # Seg Neutrophils # Man Lymphocytes # (Manual) PT INR Chloride Carbon Dioxide BUN Creatinine Glucose POC Glucose 269 H 290 H 340 H Calcium NT-Pro-B Natriuret Pep U Epithel Cells (Auto) 10/19/18 10/19/18 10/19/18 07:38 11:46 17:31 WBC MCH RDW Lymph % (Auto) [place] # Seg Neutrophils % Seg Neuts % (Manual) Lymphocytes % (Manual) Nucleated RBC % Seg Neutrophils # Seg Neutrophils # Man Lymphocytes # (Manual) PT INR Chloride Carbon Dioxide BUN Creatinine Glucose POC Glucose 304 H 234 H 319 H Calcium NT-Pro-B Natriuret Pep U Epithel Cells (Auto) 10/19/18 10/20/18 10/20/18 21:22 06:00 06:00 WBC 21.5 H MCH 25 L RDW 21.4 H Lymph % (Auto) [place] # Seg Neutrophils % Seg Neuts % (Manual) 98.0 H Lymphocytes % (Manual) 1.0 L Nucleated RBC % Seg Neutrophils # Seg Neutrophils # Man 21.1 H Lymphocytes # (Manual) 0.2 L PT INR Chloride Carbon Dioxide BUN 26 H Creatinine 0.4 L Glucose 177 H POC Glucose 330 H Calcium 8.2 L NT-Pro-B Natriuret Pep U Epithel Cells (Auto) 10/20/18 10/20/18 10/21/18 11:41 15:16 08:23 WBC MCH RDW Lymph % (Auto) [place] # Seg Neutrophils % Seg Neuts % (Manual) Lymphocytes % (Manual) Nucleated RBC % Seg Neutrophils # Seg Neutrophils # Man Lymphocytes # (Manual) PT INR Chloride Carbon Dioxide BUN Creatinine Glucose POC Glucose 178 H 178 H 237 H Calcium NT-Pro-B Natriuret Pep U Epithel Cells (Auto) 10/21/18 12:02 WBC MCH RDW Lymph % (Auto) [place] # Seg Neutrophils % Seg Neuts % (Manual) Lymphocytes % (Manual) Nucleated RBC % Seg Neutrophils # Seg Neutrophils # Man Lymphocytes # (Manual) PT INR Chloride Carbon Dioxide BUN Creatinine Glucose POC Glucose 204 H Calcium NT-Pro-B Natriuret Pep U Epithel Cells (Auto)
[2018-10-21] MEDS: AMBIEN PO PRN (22:08)
[2018-10-21] MEDS: ROCEPHIN/NS 1 GM/50 ML 1 GM/50 ML BAG IV SCH (22:09)
[2018-10-21] MEDS: LANTUS SUB-Q SCH (22:10)
--- NOTE | 2018-10-21 22:18 | Progress Note ---
Assessment and Plan - Patient Problems (1) Chest pain Current Visit: Yes Status: Resolved Plan to address problem: resolved. (2) CHF (congestive heart failure) Current Visit: Yes Status: Chronic Qualifiers: Plan to address problem: Diuretics. (3) CAD (coronary artery disease) of artery bypass graft Current Visit: No Status: Acute Plan to address problem: supportive. (4) Cellulitis Current Visit: No Status: Chronic Qualifiers: Site of cellulitis: extremity Site of cellulitis of extremity: lower extremity Laterality: left Qualified Code(s): L03.116 - Cellulitis of left lower limb Plan to address problem: wound care. post surgery today. (5) Diabetes Current Visit: No Status: Acute Plan to address problem: control BG. Subjective Date of service: 10/21/18 Interval history: Patient is seen/examined, resting in bed,, records reviewed, case discussed, put on mild pain control.Wbc elevated due to steroids. Patient seen/examined, resting in bed, records reviewed, Will start working on d/c plans. Patient seen/examined, resting in bed, I have read the wound surgeon notes, plans for procedure tomorrow. Once stable, post surgery, will d/c home. hyperbaric therapy to be arranged out patient, once cardio/pulm clearance done, and patient in compliant with her care, ie diet, BG, smoking, etc. Will put on some pain meds. Patient seen/examined, resting in bed post wound debridment, after which she had Vtack, cardiology now on the case, and will clear for ba therapy.riaric, will a lso get PULm consult for the same reason. Patient seen/examined, resting in bed, records reviewed, case d/w patient. i have d/w pulm service.I am awaiting for both cardiology/cardiology to clear her for hyperbaric therapy., after which patient will be d/c once stable. Objective - Constitutional Vitals: Vital Signs - 12hr 10/21/18 10/21/18 10/21/18 11:25 11:30 11:45 Temperature Pulse Rate Pulse Rate [ 112 H 124 H Anterior Bilateral Throughout] Respiratory Rate Respiratory 18 18 Rate [Anterior Bilateral Throughout] Blood Pressure O2 Sat by Pulse 95 Oximetry 10/21/18 10/21/18 10/21/18 13:02 13:51 16:00 Temperature Pulse Rate 89 101 H Pulse Rate [ Anterior Bilateral Throughout] Respiratory Rate Respiratory Rate [Anterior Bilateral Throughout] Blood Pressure 114/54 135/86 O2 Sat by Pulse Oximetry 10/21/18 10/21/18 10/21/18 17:07 17:08 17:53 Temperature 97.8 F Pulse Rate 106 H 106 H Pulse Rate [ Anterior Bilateral Throughout] Respiratory 18 Rate Respiratory Rate [Anterior Bilateral Throughout] Blood Pressure 133/75 133/75 O2 Sat by Pulse 92 Oximetry 10/21/18 10/21/18 10/21/18 19:44 20:40 20:42 Temperature 97.5 F L Pulse Rate 97 H Pulse Rate [ 110 H Anterior Bilateral Throughout] Respiratory 14 Rate Respiratory 20 Rate [Anterior Bilateral Throughout] Blood Pressure 140/90 O2 Sat by Pulse 92 99 Oximetry 10/21/18 10/21/18 20:50 22:08 Temperature Pulse Rate 95 H Pulse Rate [ 104 H Anterior Bilateral Throughout] Respiratory 20 Rate Respiratory 20 Rate [Anterior Bilateral Throughout] Blood Pressure 140/90 O2 Sat by Pulse Oximetry General appearance: Present: no acute distress, well-nourished - EENT Eyes: PERRL, EOM intact ENT: hearing intact, clear oral mucosa Ears: bilateral: normal - Neck Neck: supple, normal ROM - Respiratory Respiratory effort: normal Respiratory: bilateral: CTA - Breasts Breasts: deferred - Cardiovascular Rhythm: regular Heart Sounds: Present: S1 & S2. Absent: gallop, rub Extremities: pulses intact, No edema, normal color, Full ROM - Gastrointestinal General gastrointestinal: Present: soft, non-tender, non-distended, normal bowel sounds Rectal Exam: deferred - Genitourinary Female genitourinary: deferred - Integumentary Integumentary: clear, warm, dry - Musculoskeletal Musculoskeletal: 1, strength equal bilaterally - Neurologic Neurologic: moves all extremities - Psychiatric Psychiatric: memory intact, appropriate mood/affect, intact judgment & insight - Labs CBC & Chem 7: 10/20/18 06:00 10/20/18 06:00 Labs: Abnormal lab results 10/21/18 10/21/18 10/21/18 Range/Units 08:23 12:02 21:04 POC Glucose 237 H 204 H 188 H (70-105) Medications & Allergies - Medications Allergies/Adverse Reactions: Allergies Penicillins Allergy (Verified 04/03/18 12:43) Itching Home Medications: Home Medications Medication Instructions Recorded Confirmed Last Taken Type Aspirin [Aspirin BABY CHEW TAB] 81 mg PO DAILY #100 tab.chew 09/07/18 10/16/18 Unknown Rx AtorvaSTATin [Lipitor] 40 mg PO QHS #30 tablet 09/07/18 10/16/18 Unknown Rx Gabapentin [Neurontin] 300 mg PO TID #90 capsule 09/07/18 10/16/18 Unknown Rx Insulin Glargine [Lantus VIAL] 20 units SUB-Q QHS #1 vial 09/07/18 10/16/18 Unknown Rx Ipratropium/Albuterol Sulfate 1 ampul IH QIDRT #120 ampul.neb 09/07/18 10/16/18 Unknown Rx [DUONEB *Not for PRN Use*] Lispro Insulin [Humalog] 5 unit SUB-Q ACHS #5 units 09/07/18 10/16/18 Unknown Rx Furosemide [Lasix TAB] 40 mg PO BID #60 tablet 10/08/18 10/16/18 Unknown Rx LORazepam [Ativan] 1 mg PO Q4H PRN #14 tablet 10/08/18 10/16/18 Unknown Rx oxyCODONE /ACETAMINOPHEN [Percocet 2 tab PO Q6H PRN #20 tablet 10/08/18 10/16/18 Unknown Rx 5/325 mg] Lisinopril [Prinivil] 2.5 mg PO QDAY 10/16/18 10/16/18 Unknown History Active Medications: Generic Name Dose Route Start Last Admin Trade Name Freq PRN Reason Stop Dose Admin Acetaminophen/Hydrocodone Bitart 1 each 10/19/18 10:01 10/21/18 17:52 [place] 5/325 PO 1 each Q6H PRN Administration Pain, Moderate (4-6) Albuterol 2.5 mg 10/21/18 20:00 10/21/18 20:36 Proventil IH 2.5 mg Q6HRT LUZ Administration Aspirin 81 mg 10/17/18 10:00 10/21/18 09:47 Baby Aspirin PO 81 mg DAILY LUZ Administration Atorvastatin Calcium 40 mg 10/16/18 22:00 10/21/18 22:08 Lipitor PO 40 mg QHS LUZ Administration Digoxin 0.25 mg 10/21/18 17:00 10/21/18 17:53 Lanoxin PO 0.25 mg DAILY@1700 LUZ Administration Furosemide 40 mg 10/17/18 06:00 10/21/18 17:54 Lasix IV 40 mg 0600,1800 LUZ Administration Gabapentin 300 mg 10/16/18 20:00 10/21/18 13:50 Neurontin PO 300 mg TID LUZ Administration Ceftriaxone Sodium 1 gm in 50 mls @ 100 mls/hr 10/16/18 21:00 10/21/18 22:09 Rocephin/Ns 1 Gm/50 Ml IV 100 mls/hr Q24H LUZ Administration Protocol Sodium Chloride 1,000 mls @ 75 mls/hr 10/20/18 14:00 10/20/18 23:28 Nacl 0.9% 1000 Ml IV 75 mls/hr DIRECT LUZ Administration Insulin Glargine 20 units 10/16/18 22:00 10/21/18 22:10 Lantus SUB-Q 20 units QHS LUZ Administration Insulin Human Lispro 5 unit 10/16/18 22:00 10/21/18 22:10 Humalog SUB-Q 5 unit ACHS LUZ Administration Insulin Human Lispro 0 unit 10/19/18 11:30 10/21/18 22:11 Humalog SUB-Q 2 unit ACHS LUZ Administration Protocol Ipratropium [place] 0.5 mg 10/21/18 20:00 10/21/18 20:36 Atrovent IH 0.5 mg Q6HRT LUZ Administration Lisinopril 2.5 mg 10/17/18 10:00 10/21/18 09:47 Zestril PO 2.5 mg QDAY LUZ Administration Lorazepam 1 mg 10/16/18 18:49 10/21/18 15:39 Ativan PO 1 mg Q4H PRN Administration Anxiety Methylprednisolone Sodium Succinate 40 mg 10/16/18 22:00 10/21/18 22:08 Solu-Medrol IV 40 mg Q12H LUZ Administration Metoprolol Tartrate 2.5 mg 10/20/18 16:37 Lopressor IV Q6HR PRN Tachyarrhythmias Metoprolol Tartrate 50 mg 10/21/18 14:00 10/21/18 22:08 Lopressor PO 50 mg Q8HR ULZ Administration Morphine Sulfate 2 mg 10/20/18 08:59 10/21/18 22:08 Morphine IV 2 mg Q6H PRN Administration Pain , Severe (7-10) Pseudoephedrine/Acetam/Chlorphenir 10 ml 10/21/18 15:19 10/21/18 17:52 Robitussin Ac PO 10 ml Q6H PRN Administration Cough Zolpidem Tartrate 5 mg 10/16/18 20:12 10/21/18 22:08 Ambien PO 5 mg QHS PRN Administration Sleep
[2018-10-22 00:04] LABS: Basophils % (Auto) 0.1 % (0.0-1.8); Lymphocytes # (Auto) 0.7 K/mm3 (1.2-5.4); Lymphocytes % (Auto) 5.9 % (13.4-35.0); Mean Corpuscular HGB Conc 30 % (30-34); Mean Corpuscular Volume 83 fl (79-97); Monocytes # (Auto) 0.6 K/mm3 (0.0-0.8); Monocytes % (Auto) 4.8 % (0.0-7.3); Platelet Count 180 K/mm3 (140-440); Red Blood Count 4.33 M/mm3 (3.65-5.03)
[2018-10-22 00:15] LABS: Hematocrit 35.9 % (30.3-42.9); Hemoglobin 10.8 gm/dl (10.1-14.3); Red Cell Distribution Width 21.4 % (13.2-15.2)
[2018-10-22] MEDS: PROVENTIL IH SCH ×4 (03:25→21:02)
[2018-10-22] MEDS: ATROVENT IH SCH ×4 (03:25→21:02)
[2018-10-22] MEDS: LOPRESSOR PO SCH ×3 (05:46→22:39)
[2018-10-22] MEDS: LASIX IV SCH ×2 (05:46→18:00)
[2018-10-22] MEDS: ROBITUSSIN AC PO PRN ×2 (05:47→15:48)
[2018-10-22] MEDS: NORCO 5/325 PO PRN ×4 (05:47→22:38)
--- NOTE | 2018-10-22 08:04 | Event Note ---
Date: 10/22/18 Saw patient last night. Will ask Wound Care nurse to place wound vac on wound today.
[2018-10-22 10:13] LABS: Mean Corpuscular HGB Conc 31 % (30-34); Mean Corpuscular Volume 83 fl (79-97); Platelet Count 258 K/mm3 (140-440); Red Blood Count 4.67 M/mm3 (3.65-5.03)
[2018-10-22 10:15] LABS: Hematocrit 38.7 % (30.3-42.9); Hemoglobin 11.9 gm/dl (10.1-14.3); Red Cell Distribution Width 21.2 % (13.2-15.2)
[2018-10-22] MEDS: HumaLOG SUB-Q SCH ×8 (10:18→22:42)
[2018-10-22] MEDS: SOLU-Medrol IV SCH ×2 (10:19→22:43)
[2018-10-22] MEDS: NEURONTIN PO SCH ×3 (10:19→22:38)
[2018-10-22] MEDS: BABY ASPIRIN PO SCH (10:27)
[2018-10-22] MEDS: ZESTRIL PO SCH (10:28)
[2018-10-22 10:31] LABS: BUN/Creatinine Ratio 60; Blood Urea Nitrogen 42 mg/dL (7-17); Calcium 7.9 mg/dL (8.4-10.2); Hemolysis Index 500
[2018-10-22] MEDS: DAKIN'S HALF STRENGTH TP SCH ×2 (10:43→22:43)
--- NOTE | 2018-10-22 10:57 | Progress Note ---
Assessment and Plan s/p left foot debridement Permanent Atrial fib/flutter on metoprolol and digoxin on eliquis for oral anticoagulation therapy. Ischemic cardiomyopathy with EF 30-35% CAD s/p 3v CABG in 2014 Cor [place] COPD Severe pulmonary hypertension Tobacco abuse Htn DM PAD s/p TMA Chronic non-compliance with medical therapy and medical follow up Recommend: Continue medical therapy for permanent atrial fibrillation, ischemic cardiomyopathy and coronary artery disease. Subjective Date of service: 10/22/18 Interval history: Afib with a well controlled ventricular rate on telemetry. Objective Vital Signs Temp Pulse Pulse Resp Resp BP Pulse Ox 10/22/18 05:46 90 101/69 10/22/18 03:28 97.5 F L 93 H 17 101/69 99 10/22/18 03:15 104 H 22 10/22/18 03:00 102 H 22 10/22/18 00:00 88 10/21/18 22:55 97.6 F 67 18 123/92 98 10/21/18 22:08 95 H 20 140/90 10/21/18 20:50 104 H 20 10/21/18 20:42 99 10/21/18 20:40 110 H 20 10/21/18 19:44 97.5 F L 97 H 14 140/90 92 10/21/18 17:53 106 H 133/75 10/21/18 17:08 97.8 F 10/21/18 17:07 106 H 18 133/75 92 10/21/18 16:00 101 H 10/21/18 13:51 89 135/86 10/21/18 13:02 114/54 10/21/18 11:45 124 H 18 10/21/18 11:30 112 H 18 10/21/18 11:25 95 - Physical Examination General: No Apparent Distress HEENT: Positive: PERRL Neck: Positive: trachea midline Cardiac: Positive: irregularly irregular Lungs: Positive: Decreased Breath Sounds, Wheezes Neuro: Positive: Grossly Intact - Labs and Meds CBC 10/21/18 10/22/18 Range/Units 23:27 09:44 WBC 11.9 H 15.0 H (4.5-11.0) K/mm3 RBC 4.33 4.67 (3.65-5.03) M/mm3 Hgb 10.8 11.9 (10.1-14.3) gm/dl Hct 35.9 38.7 (30.3-42.9) % Plt Count 180 258 (140-440) K/mm3 Lymph # 0.7 L Human Services Program Specialist (1.2-5.4) K/mm3 [place] # 0.6 Human Services Program Specialist (0.0-0.8) K/mm3 Eos # 0.0 Human Services Program Specialist (0.0-0.4) K/mm3 Baso # 0.0 Human Services Program Specialist (0.0-0.1) K/mm3 Comprehensive Metabolic Panel 10/22/18 Range/Units 09:44 Sodium 136 L (137-145) mmol/L Potassium TNR Chloride 96.4 L (98-107) mmol/L Carbon Dioxide 23 (22-30) mmol/L BUN 42 H (7-17) mg/dL Creatinine TNR Glucose 251 H (65-100) mg/dL Calcium 7.9 L (8.4-10.2) mg/dL
--- NOTE | 2018-10-22 13:16 | Progress Note ---
Assessment and Plan Patient awake. Patient is on room air. O2 saturation 96%. Patient has left foot wound debridement and wash out.Patient afebrile but has leukocytosis. Complaining non specific bodyaches. Patient is cleared for hyperbaric oxygen from pulmonary point of view. watch respiratory status during the procedure. Also recommend cardiology clearence. - Patient Problems (1) Chronic ulcer of left foot with fat layer exposed Current Visit: Yes Status: Acute Plan to address problem: Patient underwent left foot debridement and washout.Patient presently on Rocephan Also patient scheduled for hyperbaric oxygen treatment. (2) Rapid atrial fibrillation Current Visit: Yes Status: Acute Plan to address problem: Patient is on Metoprolol and Digoxin. Recommend Anticoagulation if no contraindications (3) CHF (congestive heart failure) Current Visit: Yes Status: Chronic Qualifiers: Plan to address problem: Management as per cardiology (4) Diabetes Current Visit: No Status: Acute Plan to address problem: Management as per primary care. (5) Hypertension Current Visit: No Status: Acute Qualifiers: Hypertension type: essential hypertension Qualified Code(s): I10 - Essential (primary) hypertension Plan to address problem: Management as per primary care (6) COPD exacerbation Current Visit: No Status: Chronic Plan to address problem: O2 2L via nasal cannula. Albuterol/Atrovent aerosol treatment q6hrs Continue IV Solumedrol Continue Rocephan SCDs Recommend GI prophylaxis Subjective Date of service: 10/22/18 Interval history: Patient awake. Patient is on room air. O2 saturation 96%. Patient has left foot wound debridement and wash out.Patient afebrile but has leukocytosis. Complaining non specific bodyaches. Patient is cleared for hyperbaric oxygen from pulmonary point of view. watch respiratory status during the procedure. Also recommend cardiology clearence. Objective Vital Signs - 12hr 10/22/18 10/22/18 10/22/18 03:00 03:15 03:28 Temperature 97.5 F L Pulse Rate 93 H Pulse Rate [ 102 H 104 H Anterior Bilateral Throughout] Respiratory 17 Rate Respiratory 22 22 Rate [Anterior Bilateral Throughout] Blood Pressure 101/69 O2 Sat by Pulse 99 Oximetry 10/22/18 05:46 Temperature Pulse Rate 90 Pulse Rate [ Anterior Bilateral Throughout] Respiratory Rate Respiratory Rate [Anterior Bilateral Throughout] Blood Pressure 101/69 O2 Sat by Pulse Oximetry Constitutional: no acute distress, alert, agitated Eyes: non-icteric ENT: oropharynx moist Neck: supple, no JVD Ascultation: Bilateral: wheezes (mild), rhonchi (mild) Cardiovascular: regular rate and rhythm Gastrointestinal: normoactive bowel sounds, soft, non-tender Integumentary: normal Extremities: no cyanosis, edema Neurologic: normal mental status, non-focal exam, pupils equal and round, CN II- XII normal Psychiatric: anxious CBC and BMP: 10/22/18 09:44 10/22/18 15:26 ABG, PT/INR, D-dimer: PT/INR, D-dimer PT 16.6 Sec. (12.2-14.9) H 10/16/18 14:39 INR 1.26 (0.87-1.13) H 10/16/18 14:39 Abnormal lab findings: Abnormal Labs 10/16/18 10/16/18 10/16/18 14:39 14:39 14:39 WBC 16.6 H MCH 26 L RDW 21.6 H Lymph % (Auto) 10.6 L Lymph # [place] # 0.9 H Seg Neutrophils % 82.9 H Seg Neuts % (Manual) Lymphocytes % (Manual) Nucleated RBC % Seg Neutrophils # 13.8 H Seg Neutrophils # Man Lymphocytes # (Manual) PT 16.6 H INR 1.26 H Sodium Chloride 107.9 H Carbon Dioxide 21 L BUN Creatinine 0.5 L Glucose 182 H POC Glucose Calcium 7.6 L NT-Pro-B Natriuret Pep U Epithel Cells (Auto) 10/16/18 10/16/18 10/16/18 14:39 17:55 19:30 WBC MCH RDW Lymph % (Auto) Lymph # [place] # Seg Neutrophils % Seg Neuts % (Manual) Lymphocytes % (Manual) Nucleated RBC % Seg Neutrophils # Seg Neutrophils # Man Lymphocytes # (Manual) PT INR Sodium Chloride Carbon Dioxide BUN Creatinine Glucose POC Glucose 164 H Calcium NT-Pro-B Natriuret Pep 4638 H U Epithel Cells (Auto) 15.0 H 10/16/18 10/17/18 10/17/18 21:59 05:57 05:57 WBC 17.5 H MCH 25 L RDW 22.3 H Lymph % (Auto) Lymph # [place] # Seg Neutrophils % Seg Neuts % (Manual) 91.0 H Lymphocytes % (Manual) 7.0 L Nucleated RBC % 1.0 H Seg Neutrophils # Seg Neutrophils # Man 15.9 H Lymphocytes # (Manual) PT INR Sodium Chloride Carbon Dioxide BUN 18 H Creatinine 0.6 L Glucose 197 H POC Glucose 174 H Calcium 7.8 L NT-Pro-B Natriuret Pep U Epithel Cells (Auto) 10/17/18 10/17/18 10/17/18 07:49 12:03 16:59 WBC MCH RDW Lymph % (Auto) Lymph # [place] # Seg Neutrophils % Seg Neuts % (Manual) Lymphocytes % (Manual) Nucleated RBC % Seg Neutrophils # Seg Neutrophils # Man Lymphocytes # (Manual) PT INR Sodium Chloride Carbon Dioxide BUN Creatinine Glucose POC Glucose 195 H 308 H 307 H Calcium NT-Pro-B Natriuret Pep U Epithel Cells (Auto) 10/17/18 10/18/18 10/18/18 21:30 08:20 11:57 WBC MCH RDW Lymph % (Auto) Lymph # [place] # Seg Neutrophils % Seg Neuts % (Manual) Lymphocytes % (Manual) Nucleated RBC % Seg Neutrophils # Seg Neutrophils # Man Lymphocytes # (Manual) PT INR Sodium Chloride Carbon Dioxide BUN Creatinine Glucose POC Glucose 344 H 322 H 302 H Calcium NT-Pro-B Natriuret Pep U Epithel Cells (Auto) 10/18/18 10/18/18 10/18/18 17:26 18:00 22:14 WBC MCH RDW Lymph % (Auto) Lymph # [place] # Seg Neutrophils % Seg Neuts % (Manual) Lymphocytes % (Manual) Nucleated RBC % Seg Neutrophils # Seg Neutrophils # Man Lymphocytes # (Manual) PT INR Sodium Chloride Carbon Dioxide BUN Creatinine Glucose POC Glucose 269 H 290 H 340 H Calcium NT-Pro-B Natriuret Pep U Epithel Cells (Auto) 10/19/18 10/19/18 10/19/18 07:38 11:46 17:31 WBC MCH RDW Lymph % (Auto) Lymph # [place] # Seg Neutrophils % Seg Neuts % (Manual) Lymphocytes % (Manual) Nucleated RBC % Seg Neutrophils # Seg Neutrophils # Man Lymphocytes # (Manual) PT INR Sodium Chloride Carbon Dioxide BUN Creatinine Glucose POC Glucose 304 H 234 H 319 H Calcium NT-Pro-B Natriuret Pep U Epithel Cells (Auto) 10/19/18 10/20/18 10/20/18 21:22 06:00 06:00 WBC 21.5 H MCH 25 L RDW 21.4 H Lymph % (Auto) Lymph # [place] # Seg Neutrophils % Seg Neuts % (Manual) 98.0 H Lymphocytes % (Manual) 1.0 L Nucleated RBC % Seg Neutrophils # Seg Neutrophils # Man 21.1 H Lymphocytes # (Manual) 0.2 L PT INR Sodium Chloride Carbon Dioxide BUN 26 H Creatinine 0.4 L Glucose 177 H POC Glucose 330 H Calcium 8.2 L NT-Pro-B Natriuret Pep U Epithel Cells (Auto) 10/20/18 10/20/18 10/21/18 11:41 15:16 08:23 WBC MCH RDW Lymph % (Auto) Lymph # [place] # Seg Neutrophils % Seg Neuts % (Manual) Lymphocytes % (Manual) Nucleated RBC % Seg Neutrophils # Seg Neutrophils # Man Lymphocytes # (Manual) PT INR Sodium Chloride Carbon Dioxide BUN Creatinine Glucose POC Glucose 178 H 178 H 237 H Calcium NT-Pro-B Natriuret Pep U Epithel Cells (Auto) 10/21/18 10/21/18 10/21/18 12:02 21:04 23:27 WBC 11.9 H MCH 25 L RDW 21.4 H Lymph % (Auto) 5.9 L Lymph # 0.7 L [place] # Seg Neutrophils % 89.2 H Seg Neuts % (Manual) Lymphocytes % (Manual) Nucleated RBC % Seg Neutrophils # 10.6 H Seg Neutrophils # Man Lymphocytes # (Manual) PT INR Sodium Chloride Carbon Dioxide BUN Creatinine Glucose POC Glucose 204 H 188 H Calcium NT-Pro-B Natriuret Pep U Epithel Cells (Auto) 10/22/18 10/22/18 10/22/18 08:04 09:44 09:44 WBC 15.0 H MCH 26 L RDW 21.2 H Lymph % (Auto) Lymph # [place] # Seg Neutrophils % Seg Neuts % (Manual) Lymphocytes % (Manual) Nucleated RBC % Seg Neutrophils # Seg Neutrophils # Man Lymphocytes # (Manual) PT INR Sodium 136 L Chloride 96.4 L Carbon Dioxide BUN 42 H Creatinine Glucose 251 H POC Glucose 242 H Calcium 7.9 L NT-Pro-B Natriuret Pep U Epithel Cells (Auto) 10/22/18 12:30 WBC MCH RDW Lymph % (Auto) Lymph # [place] # Seg Neutrophils % Seg Neuts % (Manual) Lymphocytes % (Manual) Nucleated RBC % Seg Neutrophils # Seg Neutrophils # Man Lymphocytes # (Manual) PT INR Sodium Chloride Carbon Dioxide BUN Creatinine Glucose POC Glucose 208 H Calcium NT-Pro-B Natriuret Pep U Epithel Cells (Auto)
[2018-10-22 14:20] LABS: Anisocytosis 1+; Basophils % (Manual) 0 % (0.0-1.8); Eosinophils % (Manual) 0 % (0.0-4.3); Total Cells Counted 100
[2018-10-22 14:21] LABS: Hypochromasia 1+; Platelet Estimate Consistent w Auto
[2018-10-22 16:01] LABS: BUN/Creatinine Ratio 68; Blood Urea Nitrogen 41 mg/dL (7-17); Hemolysis Index 139
[2018-10-22] MEDS: LANOXIN PO SCH (17:59)
[2018-10-22] MEDS: ROCEPHIN/NS 1 GM/50 ML 1 GM/50 ML BAG IV SCH (22:38)
[2018-10-22] MEDS: AMBIEN PO PRN (22:39)
[2018-10-22] MEDS: LANTUS SUB-Q SCH (22:40)
[2018-10-23] MEDS: ATROVENT IH SCH ×3 (02:02→15:09)
[2018-10-23] MEDS: PROVENTIL IH SCH ×3 (02:02→15:09)
[2018-10-23] MEDS: NORCO 5/325 PO PRN ×3 (06:16→21:04)
[2018-10-23] MEDS: LOPRESSOR PO SCH ×3 (06:16→21:05)
[2018-10-23] MEDS: LASIX IV SCH ×2 (06:17→17:00)
[2018-10-23] MEDS: HumaLOG SUB-Q SCH ×8 (07:49→21:06)
[2018-10-23] MEDS: NEURONTIN PO SCH ×3 (08:34→20:40)
--- NOTE | 2018-10-23 09:06 | Progress Note ---
Assessment and Plan h/o COPD Tobacco use disorder Morbid obesity, Coronary artery disease s/p coronary bypass in 2014, Ischemic cardiomyopathy LVEF 30-35% Persistent atrial flutter fibrillation Peripheral arterial disease, Foot ulcers s/p debridement -Continue bronchodilators, her COPD appears to be stable. -Anticoagulated, continue post debridement -Smoking cessation counselling done at the bed side for 8 minutes. She states she quit since coming into the hosital. She states she will stay quit" it's killing me." -Needs out patient sleep study -Supplemental oxygen t keep O2 sat>90% -Analgesia, limit narcotics -Tight glycemic control, to help promote wound healing -PT/OT/mobility as tolerated -Cardioprotective measures -Chronic home medications -Weight loss and life style modifications Subjective Date of service: 10/23/18 Interval history: f/up: COPD, Tobacco use disorder, Seen and examined. Vitals, labs, medications, chart and imaging reviewed. s/p debridement of foot wounds/ulcers, awaiting hyperbaric oxygen therapy. She complains of non specific generalized aches and pain. Very labile mood. No fevers or chills, no nausea or vomiting. No diarrhea Discussed with RN Objective Vital Signs - 12hr 10/22/18 10/22/18 10/22/18 21:11 21:12 22:38 Temperature Pulse Rate Pulse Rate [ 88 Anterior Bilateral Throughout] Respiratory 22 Rate Respiratory 18 Rate [Anterior Bilateral Throughout] Blood Pressure O2 Sat by Pulse 98 Oximetry 10/22/18 10/23/18 10/23/18 22:39 00:00 04:30 Temperature 98.7 F 98.0 F Pulse Rate 80 90 76 Pulse Rate [ Anterior Bilateral Throughout] Respiratory 18 20 Rate Respiratory Rate [Anterior Bilateral Throughout] Blood Pressure 110/59 129/73 121/91 O2 Sat by Pulse 94 96 Oximetry 10/23/18 10/23/18 06:16 07:48 Temperature 97.9 F Pulse Rate 75 95 H Pulse Rate [ Anterior Bilateral Throughout] Respiratory 18 Rate Respiratory Rate [Anterior Bilateral Throughout] Blood Pressure 121/91 113/89 O2 Sat by Pulse 97 Oximetry Constitutional: no acute distress, alert, agitated, other (morbid obesity) Eyes: non-icteric ENT: oropharynx moist Neck: supple, no JVD, other (short neck) Effort: mildly labored Ascultation: Bilateral: wheezes (mild), rhonchi (mild) Cardiovascular: regular rate and rhythm Gastrointestinal: normoactive bowel sounds, soft, non-tender Integumentary: normal Extremities: no cyanosis, other (bilateral foot dressings, elevated with hyperpigmentation) Neurologic: normal mental status, non-focal exam, pupils equal and round, CN II- XII normal Psychiatric: mood appropriate, affect normal CBC and BMP: 10/22/18 09:44 10/24/18 09:45 ABG, PT/INR, D-dimer: ABG POC ABG pH 7.418 (7.35-7.45) 10/22/18 13:46 POC ABG pCO2 39.0 (35-45) 10/22/18 13:46 POC ABG pO2 80 (80-105) 10/22/18 13:46 POC ABG HCO3 25.2 (22-26 mml/L) 10/22/18 13:46 POC ABG Total CO2 26 (23-27mmol/L) 10/22/18 13:46 POC ABG O2 Sat 96 10/22/18 13:46 PT/INR, D-dimer PT 16.6 Sec. (12.2-14.9) H 10/16/18 14:39 INR 1.26 (0.87-1.13) H 10/16/18 14:39 Abnormal lab findings: Abnormal Labs 10/16/18 10/16/18 10/16/18 14:39 14:39 14:39 WBC 16.6 H MCH 26 L RDW 21.6 H Lymph % (Auto) 10.6 L Lymph # [place] # 0.9 H Seg Neutrophils % 82.9 H Seg Neuts % (Manual) Lymphocytes % (Manual) Nucleated RBC % Seg Neutrophils # 13.8 H Seg Neutrophils # Man Lymphocytes # (Manual) PT 16.6 H INR 1.26 H Sodium Potassium Chloride 107.9 H Carbon Dioxide 21 L BUN Creatinine 0.5 L Glucose 182 H POC Glucose Calcium 7.6 L NT-Pro-B Natriuret Pep U Epithel Cells (Auto) 10/16/18 10/16/18 10/16/18 14:39 17:55 19:30 WBC MCH RDW Lymph % (Auto) Lymph # [place] # Seg Neutrophils % Seg Neuts % (Manual) Lymphocytes % (Manual) Nucleated RBC % Seg Neutrophils # Seg Neutrophils # Man Lymphocytes # (Manual) PT INR Sodium Potassium Chloride Carbon Dioxide BUN Creatinine Glucose POC Glucose 164 H Calcium NT-Pro-B Natriuret Pep 4638 H U Epithel Cells (Auto) 15.0 H 10/16/18 10/17/18 10/17/18 21:59 05:57 05:57 WBC 17.5 H MCH 25 L RDW 22.3 H Lymph % (Auto) Lymph # [place] # Seg Neutrophils % Seg Neuts % (Manual) 91.0 H Lymphocytes % (Manual) 7.0 L Nucleated RBC % 1.0 H Seg Neutrophils # Seg Neutrophils # Man 15.9 H Lymphocytes # (Manual) PT INR Sodium Potassium Chloride Carbon Dioxide BUN 18 H Creatinine 0.6 L Glucose 197 H POC Glucose 174 H Calcium 7.8 L NT-Pro-B Natriuret Pep U Epithel Cells (Auto) 10/17/18 10/17/18 10/17/18 07:49 12:03 16:59 WBC MCH RDW Lymph % (Auto) Lymph # [place] # Seg Neutrophils % Seg Neuts % (Manual) Lymphocytes % (Manual) Nucleated RBC % Seg Neutrophils # Seg Neutrophils # Man Lymphocytes # (Manual) PT INR Sodium Potassium Chloride Carbon Dioxide BUN Creatinine Glucose POC Glucose 195 H 308 H 307 H Calcium NT-Pro-B Natriuret Pep U Epithel Cells (Auto) 10/17/18 10/18/18 10/18/18 21:30 08:20 11:57 WBC MCH RDW Lymph % (Auto) Lymph # [place] # Seg Neutrophils % Seg Neuts % (Manual) Lymphocytes % (Manual) Nucleated RBC % Seg Neutrophils # Seg Neutrophils # Man Lymphocytes # (Manual) PT INR Sodium Potassium Chloride Carbon Dioxide BUN Creatinine Glucose POC Glucose 344 H 322 H 302 H Calcium NT-Pro-B Natriuret Pep U Epithel Cells (Auto) 10/18/18 10/18/18 10/18/18 17:26 18:00 22:14 WBC MCH RDW Lymph % (Auto) Lymph # [place] # Seg Neutrophils % Seg Neuts % (Manual) Lymphocytes % (Manual) Nucleated RBC % Seg Neutrophils # Seg Neutrophils # Man Lymphocytes # (Manual) PT INR Sodium Potassium Chloride Carbon Dioxide BUN Creatinine Glucose POC Glucose 269 H 290 H 340 H Calcium NT-Pro-B Natriuret Pep U Epithel Cells (Auto) 10/19/18 10/19/18 10/19/18 07:38 11:46 17:31 WBC MCH RDW Lymph % (Auto) Lymph # [place] # Seg Neutrophils % Seg Neuts % (Manual) Lymphocytes % (Manual) Nucleated RBC % Seg Neutrophils # Seg Neutrophils # Man Lymphocytes # (Manual) PT INR Sodium Potassium Chloride Carbon Dioxide BUN Creatinine Glucose POC Glucose 304 H 234 H 319 H Calcium NT-Pro-B Natriuret Pep U Epithel Cells (Auto) 10/19/18 10/20/18 10/20/18 21:22 06:00 06:00 WBC 21.5 H MCH 25 L RDW 21.4 H Lymph % (Auto) Lymph # [place] # Seg Neutrophils % Seg Neuts % (Manual) 98.0 H Lymphocytes % (Manual) 1.0 L Nucleated RBC % Seg Neutrophils # Seg Neutrophils # Man 21.1 H Lymphocytes # (Manual) 0.2 L PT INR Sodium Potassium Chloride Carbon Dioxide BUN 26 H Creatinine 0.4 L Glucose 177 H POC Glucose 330 H Calcium 8.2 L NT-Pro-B Natriuret Pep U Epithel Cells (Auto) 10/20/18 10/20/18 10/21/18 11:41 15:16 08:23 WBC MCH RDW Lymph % (Auto) Lymph # [place] # Seg Neutrophils % Seg Neuts % (Manual) Lymphocytes % (Manual) Nucleated RBC % Seg Neutrophils # Seg Neutrophils # Man Lymphocytes # (Manual) PT INR Sodium Potassium Chloride Carbon Dioxide BUN Creatinine Glucose POC Glucose 178 H 178 H 237 H Calcium NT-Pro-B Natriuret Pep U Epithel Cells (Auto) 10/21/18 10/21/18 10/21/18 12:02 21:04 23:27 WBC 11.9 H MCH 25 L RDW 21.4 H Lymph % (Auto) 5.9 L Lymph # 0.7 L [place] # Seg Neutrophils % 89.2 H Seg Neuts % (Manual) Lymphocytes % (Manual) Nucleated RBC % Seg Neutrophils # 10.6 H Seg Neutrophils # Man Lymphocytes # (Manual) PT INR Sodium Potassium Chloride Carbon Dioxide BUN Creatinine Glucose POC Glucose 204 H 188 H Calcium NT-Pro-B Natriuret Pep U Epithel Cells (Auto) 10/22/18 10/22/18 10/22/18 08:04 09:44 09:44 WBC 15.0 H MCH 26 L RDW 21.2 H Lymph % (Auto) Lymph # [place] # Seg Neutrophils % Seg Neuts % (Manual) 92.0 H Lymphocytes % (Manual) 6.0 L Nucleated RBC % Seg Neutrophils # Seg Neutrophils # Man 13.8 H Lymphocytes # (Manual) 0.9 L PT INR Sodium 136 L Potassium Chloride 96.4 L Carbon Dioxide BUN 42 H Creatinine Glucose 251 H POC Glucose 242 H Calcium 7.9 L NT-Pro-B Natriuret Pep U Epithel Cells (Auto) 10/22/18 10/22/18 10/22/18 12:30 15:26 18:06 WBC MCH RDW Lymph % (Auto) Lymph # [place] # Seg Neutrophils % Seg Neuts % (Manual) Lymphocytes % (Manual) Nucleated RBC % Seg Neutrophils # Seg Neutrophils # Man Lymphocytes # (Manual) PT INR Sodium 133 L Potassium 5.8 H D Chloride 95.3 L Carbon Dioxide BUN 41 H Creatinine 0.6 L Glucose 322 H POC Glucose 208 H 218 H Calcium 8.0 L NT-Pro-B Natriuret Pep U Epithel Cells (Auto) 10/23/18 07:32 WBC MCH RDW Lymph % (Auto) Lymph # [place] # Seg Neutrophils % Seg Neuts % (Manual) Lymphocytes % (Manual) Nucleated RBC % Seg Neutrophils # Seg Neutrophils # Man Lymphocytes # (Manual) PT INR Sodium Potassium Chloride Carbon Dioxide BUN Creatinine Glucose POC Glucose 125 H Calcium NT-Pro-B Natriuret Pep U Epithel Cells (Auto) Chest x-ray: image reviewed (Cardiomegaly, sternotomy wires, no acute pulmonary infiltrates) Allied health notes reviewed: nursing
--- NOTE | 2018-10-23 09:15 | Progress Note ---
Assessment and Plan s/p left foot debridement Permanent Atrial fib/flutter on metoprolol and digoxin on eliquis for oral anticoagulation therapy. Ischemic cardiomyopathy with EF 30-35% CAD s/p 3v CABG in 2014 [facility] [place] COPD Severe pulmonary hypertension Tobacco abuse Htn DM PAD s/p TMA Chronic non-compliance with medical therapy and medical follow up Recommend: Continue medical therapy for permanent atrial fibrillation, ischemic cardiomyopathy and coronary artery disease. Subjective Date of service: 10/23/18 Interval history: Afib with a well controlled ventricular rate on telemetry. Objective Vital Signs Temp Pulse Pulse Resp Resp BP Pulse Ox 10/23/18 07:48 97.9 F 95 H 18 113/89 97 10/23/18 06:16 75 121/91 10/23/18 04:30 98.0 F 76 20 121/91 96 10/23/18 00:00 98.7 F 90 18 129/73 94 10/22/18 22:39 80 110/59 10/22/18 22:38 22 10/22/18 21:12 98 10/22/18 21:11 88 18 10/22/18 20:12 97.8 F 76 18 106/43 98 10/22/18 16:00 90 10/22/18 13:25 104 H 20 10/22/18 13:10 98 H 22 10/22/18 12:59 74 18 127/70 96 10/22/18 09:55 97 10/22/18 09:40 106 H 20 10/22/18 09:20 102 H 20 - Physical Examination General: No Apparent Distress HEENT: Positive: PERRL Neck: Positive: trachea midline Cardiac: Positive: irregularly irregular Lungs: Positive: Decreased Breath Sounds, Wheezes Neuro: Positive: Grossly Intact Extremities: Absent: edema - Labs and Meds CBC 10/22/18 Range/Units 09:44 WBC 15.0 H (4.5-11.0) K/mm3 RBC 4.67 (3.65-5.03) M/mm3 Hgb 11.9 (10.1-14.3) gm/dl Hct 38.7 (30.3-42.9) % Plt Count 258 (140-440) K/mm3 Lymph # Criminal Records Technician [place] # Criminal Records Technician Eos # Criminal Records Technician Baso # Criminal Records Technician Comprehensive Metabolic Panel 10/22/18 10/22/18 Range/Units 09:44 15:26 Sodium 136 L 133 L (137-145) mmol/L Potassium TNR 5.8 H D Chloride 96.4 L 95.3 L (98-107) mmol/L Carbon Dioxide 23 23 (22-30) mmol/L BUN 42 H 41 H (7-17) mg/dL Creatinine TNR 0.6 L Glucose 251 H 322 H (65-100) mg/dL Calcium 7.9 L 8.0 L (8.4-10.2) mg/dL
[2018-10-23] MEDS ORDERED: KIONEX PO ONE (09:39)
[2018-10-23] MEDS: ZESTRIL PO SCH (09:42)
[2018-10-23] MEDS: BABY ASPIRIN PO SCH (09:44)
[2018-10-23] MEDS: SOLU-Medrol IV SCH ×2 (09:44→21:03)
--- NOTE | 2018-10-23 09:44 | Progress Note ---
Assessment and Plan - Patient Problems (1) Chest pain Current Visit: Yes Status: Resolved Plan to address problem: resolved. (2) CHF (congestive heart failure) Current Visit: Yes Status: Chronic Qualifiers: Plan to address problem: Diuretics. (3) CAD (coronary artery disease) of artery bypass graft Current Visit: No Status: Chronic Plan to address problem: supportive., follow cardiology. (4) Cellulitis Current Visit: No Status: Chronic Qualifiers: Site of cellulitis: extremity Site of cellulitis of extremity: lower extremity Laterality: left Qualified Code(s): L03.116 - Cellulitis of left lower limb Plan to address problem: wound care. post surgery today. follow vascular. (5) Diabetes Current Visit: No Status: Chronic Plan to address problem: control BG. Gross non compliant at home with diet. Subjective Date of service: 10/23/18 Interval history: Patient is seen/examined, resting in bed,, records reviewed, case discussed, put on mild pain control.Wbc elevated due to steroids. Patient seen/examined, resting in bed, records reviewed, Will start working on d/c plans. Patient seen/examined, resting in bed, I have read the wound surgeon notes, plans for procedure tomorrow. Once stable, post surgery, will d/c home. hyperbaric therapy to be arranged out patient, once cardio/pulm clearance done, and patient in compliant with her care, ie diet, BG, smoking, etc. Will put on some pain meds. Patient seen/examined, resting in bed post wound debridment, after which she had Vtack, cardiology now on the case, and will clear for ba therapy.amparo, will also get PULm consult for the same reason. Patient seen/examined, resting in bed, records reviewed, case d/w patient. i h ave d/w pulm service.I am awaiting for both cardiology/cardiology to clear her for hyperbaric therapy., after which patient will be d/c once stable. Patient seen/examined, resting in bed, labs reviewed, and addressed.Notes reviewed. will d/c if no procedure will be done. Objective - Constitutional Vitals: Vital Signs - 12hr 10/22/18 10/22/18 10/23/18 22:38 22:39 00:00 Temperature 98.7 F Pulse Rate 80 90 Respiratory 22 18 Rate Blood Pressure 110/59 129/73 O2 Sat by Pulse 94 Oximetry 10/23/18 10/23/18 10/23/18 04:30 06:16 07:48 Temperature 98.0 F 97.9 F Pulse Rate 76 75 95 H Respiratory 20 18 Rate Blood Pressure 121/91 121/91 113/89 O2 Sat by Pulse 96 97 Oximetry General appearance: Present: mild distress, well-nourished - EENT Eyes: PERRL, EOM intact ENT: hearing intact, clear oral mucosa Ears: bilateral: normal - Neck Neck: supple, normal ROM - Respiratory Respiratory effort: normal Respiratory: bilateral: wheezing - Breasts Breasts: deferred - Cardiovascular Rhythm: regular Heart Sounds: Present: S1 & S2. Absent: gallop, rub Extremities: pulses intact, No edema, normal color, Full ROM - Gastrointestinal General gastrointestinal: Present: soft, non-tender, non-distended, normal bowel sounds Rectal Exam: deferred - Genitourinary Female genitourinary: deferred - Integumentary Integumentary: clear, warm, dry - Musculoskeletal Musculoskeletal: 1, strength equal bilaterally - Neurologic Neurologic: moves all extremities - Psychiatric Psychiatric: memory intact, appropriate mood/affect, intact judgment & insight - Labs CBC & Chem 7: 10/22/18 09:44 10/22/18 15:26 Labs: Abnormal lab results 10/22/18 10/22/18 10/22/18 Range/Units 09:44 09:44 12:30 WBC 15.0 H (4.5-11.0) K/mm3 MCH 26 L (28-32) pg RDW 21.2 H (13.2-15.2) % Seg Neuts % (Manual) 92.0 H (40.0-70.0) % Lymphocytes % (Manual) 6.0 L (13.4-35.0) % Seg Neutrophils # Man 13.8 H (1.8-7.7) K/mm3 Lymphocytes # (Manual) 0.9 L (1.2-5.4) K/mm3 Sodium 136 L (137-145) mmol/L Potassium (3.6-5.0) mmol/L Chloride 96.4 L (98-107) mmol/L BUN 42 H (7-17) mg/dL Creatinine (0.7-1.2) mg/dL Glucose 251 H (65-100) mg/dL POC Glucose 208 H (70-105) Calcium 7.9 L (8.4-10.2) mg/dL 10/22/18 10/22/18 10/23/18 Range/Units 15:26 18:06 07:32 WBC (4.5-11.0) K/mm3 MCH (28-32) pg RDW (13.2-15.2) % Seg Neuts % (Manual) (40.0-70.0) % Lymphocytes % (Manual) (13.4-35.0) % Seg Neutrophils # Man (1.8-7.7) K/mm3 Lymphocytes # (Manual) (1.2-5.4) K/mm3 Sodium 133 L (137-145) mmol/L Potassium 5.8 H D (3.6-5.0) mmol/L Chloride 95.3 L (98-107) mmol/L BUN 41 H (7-17) mg/dL Creatinine 0.6 L (0.7-1.2) mg/dL Glucose 322 H (65-100) mg/dL POC Glucose 218 H 125 H (70-105) Calcium 8.0 L (8.4-10.2) mg/dL Medications & Allergies - Medications Allergies/Adverse Reactions: Allergies Penicillins Allergy (Verified 04/03/18 12:43) Itching Home Medications: Home Medications Medication Instructions Recorded Confirmed Last Taken Type Aspirin [Aspirin BABY CHEW TAB] 81 mg PO DAILY #100 tab.chew 09/07/18 10/16/18 Unknown Rx AtorvaSTATin [Lipitor] 40 mg PO QHS #30 tablet 09/07/18 10/16/18 Unknown Rx Gabapentin [Neurontin] 300 mg PO TID #90 capsule 09/07/18 10/16/18 Unknown Rx Insulin Glargine [Lantus VIAL] 20 units SUB-Q QHS #1 vial 09/07/18 10/16/18 Unknown Rx Ipratropium/Albuterol Sulfate 1 ampul IH QIDRT #120 ampul.neb 09/07/18 10/16/18 Unknown Rx [DUONEB *Not for PRN Use*] Lispro Insulin [Humalog] 5 unit SUB-Q ACHS #5 units 09/07/18 10/16/18 Unknown Rx Furosemide [Lasix TAB] 40 mg PO BID #60 tablet 10/08/18 10/16/18 Unknown Rx LORazepam [Ativan] 1 mg PO Q4H PRN #14 tablet 10/08/18 10/16/18 Unknown Rx oxyCODONE /ACETAMINOPHEN [Percocet 2 tab PO Q6H PRN #20 tablet 10/08/18 10/16/18 Unknown Rx 5/325 mg] Lisinopril [Prinivil] 2.5 mg PO QDAY 10/16/18 10/16/18 Unknown History Active Medications: Generic Name Dose Route Start Last Admin Trade Name Freq PRN Reason Stop Dose Admin Acetaminophen/Hydrocodone Bitart 1 each 10/19/18 10:01 10/23/18 06:16 [place] 5/325 PO 1 each Q6H PRN Administration Pain, Moderate (4-6) Albuterol 2.5 mg 10/21/18 20:00 10/23/18 02:02 Proventil IH Not Given Q6HRT [facility] Aspirin 81 mg 10/17/18 10:00 10/22/18 10:27 Baby Aspirin PO 81 mg DAILY LUZ Administration Atorvastatin Calcium 40 mg 10/16/18 22:00 10/22/18 22:39 Lipitor PO 40 mg QHS LUZ Administration Digoxin 0.25 mg 10/21/18 17:00 10/22/18 17:59 Lanoxin PO 0.25 mg DAILY@1700 LUZ Administration Furosemide 40 mg 10/17/18 06:00 10/23/18 06:17 Lasix IV 40 mg 0600,1800 LUZ Administration Gabapentin 300 mg 10/16/18 20:00 10/23/18 08:34 Neurontin PO 300 mg TID LUZ Administration Insulin Glargine 20 units 10/16/18 22:00 10/22/18 22:40 Lantus SUB-Q 20 units QHS LUZ Administration Insulin Human Lispro 5 unit 10/16/18 22:00 10/23/18 08:35 Humalog SUB-Q 5 unit ACHS LUZ Administration Insulin Human Lispro 0 unit 10/19/18 11:30 10/23/18 07:49 [facility] Protocol Ipratropium [place] 0.5 mg 10/21/18 20:00 10/23/18 02:02 Atrovent IH Not Given Q6HRT [facility] Lisinopril 2.5 mg 10/17/18 10:00 10/22/18 10:28 Zestril PO 2.5 mg QDAY LUZ Administration Lorazepam 1 mg 10/16/18 18:49 10/21/18 15:39 Ativan PO 1 mg Q4H PRN Administration Anxiety Methylprednisolone Sodium Succinate 40 mg 10/16/18 22:00 10/22/18 22:43 Solu-Medrol IV 40 mg Q12H LUZ Administration Metoprolol Tartrate 2.5 mg 10/20/18 16:37 Lopressor IV Q6HR PRN Tachyarrhythmias Metoprolol Tartrate 50 mg 10/21/18 14:00 10/23/18 06:16 Lopressor PO 50 mg Q8HR LUZ Administration Morphine Sulfate 2 mg 10/20/18 08:59 10/21/18 22:08 Morphine IV 2 mg Q6H PRN Administration Pain , Severe (7-10) Pseudoephedrine/Acetam/Chlorphenir 10 ml 10/21/18 15:19 10/22/18 15:48 Robitussin Ac PO 10 ml Q6H PRN Administration Cough Sodium Hypochlorite 1 applic 10/22/18 11:00 10/22/18 22:43 Dakin's Half Strength TP 1 applicator BID LUZ Administration Sodium Polystyrene Sulfonate 30 gm 10/23/18 09:39 Kionex PO 10/23/18 09:40 ONCE ONE Zolpidem Tartrate 5 mg 10/16/18 20:12 10/22/18 22:39 Ambien PO 5 mg QHS PRN Administration Sleep
[2018-10-23] MEDS: DAKIN'S HALF STRENGTH TP SCH ×2 (09:45→22:00)
[2018-10-23 11:02] LABS: BUN/Creatinine Ratio 78; Blood Urea Nitrogen 39 mg/dL (7-17); Calcium 7.9 mg/dL (8.4-10.2); Hemolysis Index 13
[2018-10-23] MEDS: MORPHINE IV PRN ×2 (11:19→18:13)
[2018-10-23] MEDS: LANOXIN PO SCH (16:47)
[2018-10-23] MEDS: DUONEB *Not for PRN Use IH SCH (19:59)
[2018-10-23] MEDS: ROBITUSSIN AC PO PRN (21:03)
[2018-10-23] MEDS: AMBIEN PO PRN (21:03)
[2018-10-23] MEDS: ATIVAN PO PRN (21:03)
[2018-10-23] MEDS: LANTUS SUB-Q SCH (21:05)
[2018-10-24] MEDS: DUONEB *Not for PRN Use IH SCH ×4 (01:34→19:43)
[2018-10-24] MEDS: LASIX IV SCH ×2 (06:24→18:25)
[2018-10-24] MEDS: LOPRESSOR PO SCH ×3 (06:24→21:27)
[2018-10-24] MEDS: MORPHINE IV PRN ×3 (06:24→21:26)
[2018-10-24] MEDS: HumaLOG SUB-Q SCH ×8 (09:37→21:28)
[2018-10-24] MEDS: NEURONTIN PO SCH ×3 (09:38→20:35)
[2018-10-24] MEDS: BABY ASPIRIN PO SCH (09:38)
[2018-10-24] MEDS: ZESTRIL PO SCH (09:39)
[2018-10-24] MEDS: NORCO 5/325 PO PRN ×2 (09:41→15:54)
[2018-10-24] MEDS: DAKIN'S HALF STRENGTH TP SCH (10:00)
[2018-10-24 10:24] LABS: BUN/Creatinine Ratio 60; Blood Urea Nitrogen 30 mg/dL (7-17); Hemolysis Index 22
--- NOTE | 2018-10-24 10:45 | Progress Note ---
Assessment and Plan s/p left foot debridement Permanent Atrial fib/flutter on metoprolol and digoxin on eliquis for oral anticoagulation therapy. Ischemic cardiomyopathy with EF 30-35% CAD s/p 3v CABG in 2014 [facility] [place] COPD Severe pulmonary hypertension Tobacco abuse Htn DM PAD s/p TMA Chronic non-compliance with medical therapy and medical follow up Recommend: Continue medical therapy for permanent atrial fibrillation, ischemic cardiomyopathy and coronary artery disease. Subjective Date of service: 10/24/18 Interval history: Patient has no cardiac complaints. Afib with a well controlled ventricular rate on telemetry. Objective Vital Signs Temp Pulse Pulse Resp Resp BP BP 10/24/18 09:41 20 10/24/18 09:39 98 H 149/75 10/24/18 08:45 100 H 20 10/24/18 08:35 90 20 10/24/18 08:20 98 H 22 149/75 10/24/18 06:24 72 122/74 10/24/18 04:05 98.0 F 95 H 18 115/65 10/24/18 00:27 98.6 F 68 20 141/68 10/24/18 00:00 94 H 10/23/18 21:05 92 H 135/72 10/23/18 20:10 92 H 17 10/23/18 20:01 10/23/18 20:00 91 H 17 10/23/18 19:11 98.0 F 91 H 18 135/72 10/23/18 16:47 97 H 128/76 10/23/18 15:59 98.4 F 20 119/73 10/23/18 15:22 82 18 10/23/18 15:10 81 18 10/23/18 13:07 98 H 131/79 10/23/18 12:04 97.9 F 100 H 18 131/79 Pulse Ox 10/24/18 09:41 10/24/18 09:39 10/24/18 08:45 10/24/18 08:35 100 10/24/18 08:20 96 10/24/18 06:24 10/24/18 04:05 97 10/24/18 00:27 98 10/24/18 00:00 10/23/18 21:05 10/23/18 20:10 10/23/18 20:01 95 10/23/18 20:00 10/23/18 19:11 95 10/23/18 16:47 10/23/18 15:59 10/23/18 15:22 10/23/18 15:10 10/23/18 13:07 10/23/18 12:04 96 - Physical Examination General: No Apparent Distress HEENT: Positive: PERRL Neck: Positive: trachea midline Cardiac: Positive: irregularly irregular Lungs: Positive: Decreased Breath Sounds, Rhonchi Neuro: Positive: Grossly Intact Extremities: Absent: edema - Labs and Meds Comprehensive Metabolic Panel 10/23/18 10/24/18 Range/Units 10:16 09:45 Sodium 146 H D 134 L D (137-145) mmol/L Potassium 5.7 H 4.1 D (3.6-5.0) mmol/L Chloride 117.7 H 93.3 L (98-107) mmol/L Carbon Dioxide 25 24 (22-30) mmol/L BUN 39 H 30 H (7-17) mg/dL Creatinine 0.5 L 0.5 L (0.7-1.2) mg/dL Glucose 299 H 391 H (65-100) mg/dL Calcium 7.9 L 8.0 L (8.4-10.2) mg/dL
[2018-10-24] MEDS: ATIVAN PO PRN ×2 (11:03→21:26)
[2018-10-24] MEDS: SOLU-Medrol IV SCH ×2 (11:03→21:26)
--- NOTE | 2018-10-24 11:49 | Progress Note ---
Assessment and Plan h/o COPD Tobacco use disorder Morbid obesity, Coronary artery disease s/p coronary bypass in 2014, Ischemic cardiomyopathy LVEF 30-35% Persistent atrial flutter fibrillation Peripheral arterial disease, Foot ulcers s/p debridement -Continue bronchodilators, her COPD appears to be stable. -Anticoagulated, continue post debridement -Smoking cessation counselling done at the bed side for 8 minutes. She states she quit since coming into the hosital. She states she will stay quit" it's killing me." -Needs out patient sleep study -Supplemental oxygen t keep O2 sat>90% -Analgesia, limit narcotics -Tight glycemic control, to help promote wound healing -PT/OT/mobility as tolerated -Cardioprotective measures -Chronic home medications -Weight loss and life style modifications Continue supportive care Monitor hyponatremia Subjective Date of service: 10/24/18 Interval history: f/up: COPD, Tobacco use disorder, Seen and examined. Vitals, labs, medications, chart and imaging reviewed. s/p debridement of foot wounds/ulcers, awaiting hyperbaric oxygen therapy. She complains of non specific generalized aches and pain. Very labile mood. No fevers or chills, no nausea or vomiting. No diarrhea Discussed with RN Objective Vital Signs - 12hr 10/24/18 10/24/18 10/24/18 00:00 00:27 04:05 Temperature 98.6 F 98.0 F Pulse Rate 94 H 68 95 H Pulse Rate [ Anterior Bilateral Throughout] Respiratory 20 18 Rate Respiratory Rate [Anterior Bilateral Throughout] Blood Pressure 115/65 Blood Pressure 141/68 [Right] O2 Sat by Pulse 98 97 Oximetry 10/24/18 10/24/18 10/24/18 06:24 08:20 08:35 Temperature Pulse Rate 72 98 H Pulse Rate [ 90 Anterior Bilateral Throughout] Respiratory 22 Rate Respiratory 20 Rate [Anterior Bilateral Throughout] Blood Pressure 122/74 149/75 Blood Pressure [Right] O2 Sat by Pulse 96 100 Oximetry 10/24/18 10/24/18 10/24/18 08:45 09:39 09:41 Temperature Pulse Rate 98 H Pulse Rate [ 100 H Anterior Bilateral Throughout] Respiratory 20 Rate Respiratory 20 Rate [Anterior Bilateral Throughout] Blood Pressure 149/75 Blood Pressure [Right] O2 Sat by Pulse Oximetry Constitutional: no acute distress, alert Eyes: non-icteric ENT: oropharynx moist Neck: supple, no JVD, other (short neck) Effort: mildly labored Ascultation: Bilateral: wheezes (mild), rhonchi (mild) Cardiovascular: regular rate and rhythm Gastrointestinal: normoactive bowel sounds, soft, non-tender Integumentary: normal Extremities: no cyanosis, other (bilateral dressings) Neurologic: normal mental status, non-focal exam, pupils equal and round, CN II- XII normal, motor strength normal and Psychiatric: anxious CBC and BMP: 10/22/18 09:44 10/24/18 09:45 ABG, PT/INR, D-dimer: ABG POC ABG pH 7.418 (7.35-7.45) 10/22/18 13:46 POC ABG pCO2 39.0 (35-45) 10/22/18 13:46 POC ABG pO2 80 (80-105) 10/22/18 13:46 POC ABG HCO3 25.2 (22-26 mml/L) 10/22/18 13:46 POC ABG Total CO2 26 (23-27mmol/L) 10/22/18 13:46 POC ABG O2 Sat 96 10/22/18 13:46 PT/INR, D-dimer PT 16.6 Sec. (12.2-14.9) H 10/16/18 14:39 INR 1.26 (0.87-1.13) H 10/16/18 14:39 Abnormal lab findings: Abnormal Labs 10/16/18 10/16/18 10/16/18 14:39 14:39 14:39 WBC 16.6 H MCH 26 L RDW 21.6 H Lymph % (Auto) 10.6 L Lymph # [place] # 0.9 H Seg Neutrophils % 82.9 H Seg Neuts % (Manual) Lymphocytes % (Manual) Nucleated RBC % Seg Neutrophils # 13.8 H Seg Neutrophils # Man Lymphocytes # (Manual) PT 16.6 H INR 1.26 H Sodium Potassium Chloride 107.9 H Carbon Dioxide 21 L BUN Creatinine 0.5 L Glucose 182 H POC Glucose Calcium 7.6 L NT-Pro-B Natriuret Pep U Epithel Cells (Auto) 10/16/18 10/16/18 10/16/18 14:39 17:55 19:30 WBC MCH RDW Lymph % (Auto) Lymph # [place] # Seg Neutrophils % Seg Neuts % (Manual) Lymphocytes % (Manual) Nucleated RBC % Seg Neutrophils # Seg Neutrophils # Man Lymphocytes # (Manual) PT INR Sodium Potassium Chloride Carbon Dioxide BUN Creatinine Glucose POC Glucose 164 H Calcium NT-Pro-B Natriuret Pep 4638 H U Epithel Cells (Auto) 15.0 H 10/16/18 10/17/18 10/17/18 21:59 05:57 05:57 WBC 17.5 H MCH 25 L RDW 22.3 H Lymph % (Auto) Lymph # [place] # Seg Neutrophils % Seg Neuts % (Manual) 91.0 H Lymphocytes % (Manual) 7.0 L Nucleated RBC % 1.0 H Seg Neutrophils # Seg Neutrophils # Man 15.9 H Lymphocytes # (Manual) PT INR Sodium Potassium Chloride Carbon Dioxide BUN 18 H Creatinine 0.6 L Glucose 197 H POC Glucose 174 H Calcium 7.8 L NT-Pro-B Natriuret Pep U Epithel Cells (Auto) 10/17/18 10/17/18 10/17/18 07:49 12:03 16:59 WBC MCH RDW Lymph % (Auto) Lymph # [place] # Seg Neutrophils % Seg Neuts % (Manual) Lymphocytes % (Manual) Nucleated RBC % Seg Neutrophils # Seg Neutrophils # Man Lymphocytes # (Manual) PT INR Sodium Potassium Chloride Carbon Dioxide BUN Creatinine Glucose POC Glucose 195 H 308 H 307 H Calcium NT-Pro-B Natriuret Pep U Epithel Cells (Auto) 10/17/18 10/18/18 10/18/18 21:30 08:20 11:57 WBC MCH RDW Lymph % (Auto) Lymph # [place] # Seg Neutrophils % Seg Neuts % (Manual) Lymphocytes % (Manual) Nucleated RBC % Seg Neutrophils # Seg Neutrophils # Man Lymphocytes # (Manual) PT INR Sodium Potassium Chloride Carbon Dioxide BUN Creatinine Glucose POC Glucose 344 H 322 H 302 H Calcium NT-Pro-B Natriuret Pep U Epithel Cells (Auto) 10/18/18 10/18/18 10/18/18 17:26 18:00 22:14 WBC MCH RDW Lymph % (Auto) Lymph # [place] # Seg Neutrophils % Seg Neuts % (Manual) Lymphocytes % (Manual) Nucleated RBC % Seg Neutrophils # Seg Neutrophils # Man Lymphocytes # (Manual) PT INR Sodium Potassium Chloride Carbon Dioxide BUN Creatinine Glucose POC Glucose 269 H 290 H 340 H Calcium NT-Pro-B Natriuret Pep U Epithel Cells (Auto) 10/19/18 10/19/18 10/19/18 07:38 11:46 17:31 WBC MCH RDW Lymph % (Auto) Lymph # [place] # Seg Neutrophils % Seg Neuts % (Manual) Lymphocytes % (Manual) Nucleated RBC % Seg Neutrophils # Seg Neutrophils # Man Lymphocytes # (Manual) PT INR Sodium Potassium Chloride Carbon Dioxide BUN Creatinine Glucose POC Glucose 304 H 234 H 319 H Calcium NT-Pro-B Natriuret Pep U Epithel Cells (Auto) 10/19/18 10/20/18 10/20/18 21:22 06:00 06:00 WBC 21.5 H MCH 25 L RDW 21.4 H Lymph % (Auto) Lymph # [place] # Seg Neutrophils % Seg Neuts % (Manual) 98.0 H Lymphocytes % (Manual) 1.0 L Nucleated RBC % Seg Neutrophils # Seg Neutrophils # Man 21.1 H Lymphocytes # (Manual) 0.2 L PT INR Sodium Potassium Chloride Carbon Dioxide BUN 26 H Creatinine 0.4 L Glucose 177 H POC Glucose 330 H Calcium 8.2 L NT-Pro-B Natriuret Pep U Epithel Cells (Auto) 10/20/18 10/20/18 10/21/18 11:41 15:16 08:23 WBC MCH RDW Lymph % (Auto) Lymph # [place] # Seg Neutrophils % Seg Neuts % (Manual) Lymphocytes % (Manual) Nucleated RBC % Seg Neutrophils # Seg Neutrophils # Man Lymphocytes # (Manual) PT INR Sodium Potassium Chloride Carbon Dioxide BUN Creatinine Glucose POC Glucose 178 H 178 H 237 H Calcium NT-Pro-B Natriuret Pep U Epithel Cells (Auto) 10/21/18 10/21/18 10/21/18 12:02 21:04 23:27 WBC 11.9 H MCH 25 L RDW 21.4 H Lymph % (Auto) 5.9 L Lymph # 0.7 L [place] # Seg Neutrophils % 89.2 H Seg Neuts % (Manual) Lymphocytes % (Manual) Nucleated RBC % Seg Neutrophils # 10.6 H Seg Neutrophils # Man Lymphocytes # (Manual) PT INR Sodium Potassium Chloride Carbon Dioxide BUN Creatinine Glucose POC Glucose 204 H 188 H Calcium NT-Pro-B Natriuret Pep U Epithel Cells (Auto) 10/22/18 10/22/18 10/22/18 08:04 09:44 09:44 WBC 15.0 H MCH 26 L RDW 21.2 H Lymph % (Auto) Lymph # [place] # Seg Neutrophils % Seg Neuts % (Manual) 92.0 H Lymphocytes % (Manual) 6.0 L Nucleated RBC % Seg Neutrophils # Seg Neutrophils # Man 13.8 H Lymphocytes # (Manual) 0.9 L PT INR Sodium 136 L Potassium Chloride 96.4 L Carbon Dioxide BUN 42 H Creatinine Glucose 251 H POC Glucose 242 H Calcium 7.9 L NT-Pro-B Natriuret Pep U Epithel Cells (Auto) 10/22/18 10/22/18 10/22/18 12:30 15:26 18:06 WBC MCH RDW Lymph % (Auto) Lymph # [place] # Seg Neutrophils % Seg Neuts % (Manual) Lymphocytes % (Manual) Nucleated RBC % Seg Neutrophils # Seg Neutrophils # Man Lymphocytes # (Manual) PT INR Sodium 133 L Potassium 5.8 H D Chloride 95.3 L Carbon Dioxide BUN 41 H Creatinine 0.6 L Glucose 322 H POC Glucose 208 H 218 H Calcium 8.0 L NT-Pro-B Natriuret Pep U Epithel Cells (Auto) 10/23/18 10/23/18 10/23/18 07:32 10:16 12:25 WBC MCH RDW Lymph % (Auto) Lymph # [place] # Seg Neutrophils % Seg Neuts % (Manual) Lymphocytes % (Manual) Nucleated RBC % Seg Neutrophils # Seg Neutrophils # Man Lymphocytes # (Manual) PT INR Sodium 146 H D Potassium 5.7 H Chloride 117.7 H Carbon Dioxide BUN 39 H Creatinine 0.5 L Glucose 299 H POC Glucose 125 H 204 H Calcium 7.9 L NT-Pro-B Natriuret Pep U Epithel Cells (Auto) 10/23/18 10/23/18 10/24/18 16:00 20:59 08:47 WBC MCH RDW Lymph % (Auto) Lymph # [place] # Seg Neutrophils % Seg Neuts % (Manual) Lymphocytes % (Manual) Nucleated RBC % Seg Neutrophils # Seg Neutrophils # Man Lymphocytes # (Manual) PT INR Sodium Potassium Chloride Carbon Dioxide BUN Creatinine Glucose POC Glucose 277 H 401 H 327 H Calcium NT-Pro-B Natriuret Pep U Epithel Cells (Auto) 10/24/18 09:45 WBC MCH RDW Lymph % (Auto) Lymph # [place] # Seg Neutrophils % Seg Neuts % (Manual) Lymphocytes % (Manual) Nucleated RBC % Seg Neutrophils # Seg Neutrophils # Man Lymphocytes # (Manual) PT INR Sodium 134 L D Potassium Chloride 93.3 L Carbon Dioxide BUN 30 H Creatinine 0.5 L Glucose 391 H POC Glucose Calcium 8.0 L NT-Pro-B Natriuret Pep U Epithel Cells (Auto)
[2018-10-24] MEDS: ROBITUSSIN AC PO PRN ×2 (12:52→21:26)
--- NOTE | 2018-10-24 15:21 | Consultation ---
History of Present Illness - Reason for Consult Consult date: 10/24/18 nonhealing left foot wound - History of Present Illness Patient with a history of multiple medical problems who is undergone indications and debridements to her left foot. The patient states that initially she was treated with a general surgeon and has never had vascular evaluation. An arterial ultrasound of her legs was performed which demonstrates a decreased flow on the left. Past History Past Medical History: atrial fib, CAD, diabetes, heart failure Past Surgical History: CABG Social history: single, lives with family, smoking. denies: alcohol abuse, IV drug use Family history: no significant family history Medications and Allergies Allergies Allergy/AdvReac Type Severity Reaction Status Date / Time Penicillins Allergy Itching Verified 04/03/18 12:43 Home Medications Medication Instructions Recorded Confirmed Last Taken Type Aspirin [Aspirin BABY CHEW TAB] 81 mg PO DAILY #100 tab.chew 09/07/18 10/16/18 Unknown Rx AtorvaSTATin [Lipitor] 40 mg PO QHS #30 tablet 09/07/18 10/16/18 Unknown Rx Gabapentin [Neurontin] 300 mg PO TID #90 capsule 09/07/18 10/16/18 Unknown Rx Insulin Glargine [Lantus VIAL] 20 units SUB-Q QHS #1 vial 09/07/18 10/16/18 Unknown Rx Ipratropium/Albuterol Sulfate 1 ampul IH QIDRT #120 ampul.neb 09/07/18 10/16/18 Unknown Rx [DUONEB *Not for PRN Use*] Lispro Insulin [Humalog] 5 unit SUB-Q ACHS #5 units 09/07/18 10/16/18 Unknown Rx Furosemide [Lasix TAB] 40 mg PO BID #60 tablet 10/08/18 10/16/18 Unknown Rx LORazepam [Ativan] 1 mg PO Q4H PRN #14 tablet 10/08/18 10/16/18 Unknown Rx oxyCODONE /ACETAMINOPHEN [Percocet 2 tab PO Q6H PRN #20 tablet 10/08/18 10/16/18 Unknown Rx 5/325 mg] Lisinopril [Prinivil] 2.5 mg PO QDAY 10/16/18 10/16/18 Unknown History Active Meds: Active Medications Acetaminophen/Hydrocodone Bitart ([place] 5/325) 1 each PO Q6H PRN PRN Reason: Pain, Moderate (4-6) Last Admin: 10/24/18 09:41 Dose: 1 each Documented by: Albuterol/Ipratropium (Duoneb *Not For Prn Use*) 1 ampul IH Q6HRT [facility] Last Admin: 10/24/18 13:43 Dose: 1 ampul Documented by: Aspirin (Baby Aspirin) 81 mg PO DAILY [facility] Last Admin: 10/24/18 09:38 Dose: 81 mg Documented by: Atorvastatin Calcium (Lipitor) 40 mg PO QHS [facility] Last Admin: 10/23/18 21:03 Dose: 40 mg Documented by: Digoxin (Lanoxin) 0.25 mg PO DAILY@1700 [facility] Last Admin: 10/23/18 16:47 Dose: 0.25 mg Documented by: Furosemide (Lasix) 40 mg IV 0600,1800 [facility] Last Admin: 10/24/18 06:24 Dose: 40 mg Documented by: Gabapentin (Neurontin) 300 mg PO TID [facility] Last Admin: 10/24/18 14:01 Dose: 300 mg Documented by: Insulin Glargine (Lantus) [facility] Last Admin: 10/23/18 21:05 Dose: 20 units Documented by: Insulin Human Lispro (Humalog) 5 unit SUB-Q [facility] Last Admin: 10/24/18 12:52 Dose: 5 unit Documented by: Insulin Human Lispro (Humalog) 0 unit SUB-Q [facility]; Protocol Last Admin: 10/24/18 12:52 Dose: 3 unit Documented by: Lisinopril (Zestril) 2.5 mg PO QDAY [facility] Last Admin: 10/24/18 09:39 Dose: 2.5 mg Documented by: Lorazepam (Ativan) 1 mg PO Q4H PRN PRN Reason: Anxiety Last Admin: 10/24/18 11:03 Dose: 1 mg Documented by: Methylprednisolone Sodium Succinate (Solu-Medrol) 40 mg IV Q12H [facility] Last Admin: 10/24/18 11:03 Dose: 40 mg Documented by: Metoprolol Tartrate (Lopressor) 2.5 mg IV Q6HR PRN PRN Reason: Tachyarrhythmias Metoprolol Tartrate (Lopressor) 50 mg PO Q8HR [facility] Last Admin: 10/24/18 14:01 Dose: 50 mg Documented by: Morphine Sulfate (Morphine) 2 mg IV Q6H PRN PRN Reason: Pain , Severe (7-10) Last Admin: 10/24/18 12:59 Dose: 2 mg Documented by: Pseudoephedrine/Acetam/Chlorphenir (Robitussin Ac) 10 ml PO Q6H PRN PRN Reason: Cough Last Admin: 10/24/18 12:52 Dose: 10 ml Documented by: Sodium Hypochlorite (Dakin's Half Strength) 1 applic TP BID [facility] Last Admin: 10/24/18 10:00 Dose: 1 applicator Documented by: Zolpidem Tartrate (Ambien) 5 mg PO QHS PRN PRN Reason: Sleep Last Admin: 10/23/18 21:03 Dose: 5 mg Documented by: Review of Systems All systems: negative Exam - Constitutional Vitals: Temp Pulse Resp BP Pulse Ox 98.2 F 96 H 22 120/76 94 10/24/18 14:00 10/24/18 14:01 10/24/18 14:00 10/24/18 14:01 10/24/18 14:00 General appearance: Present: no acute distress - EENT Eyes: Present: EOM intact ENT: hearing intact - Neck Neck: Present: supple, normal ROM - Respiratory Respiratory effort: normal - Extremities Extremities: abnormal (left lower extremity with TMA status post debridement) - Abdominal General gastrointestinal: Present: deferred Female genitourinary: Present: deferred - Rectal Rectal Exam: deferred - Psychiatric Psychiatric: cooperative Results - Labs CBC & Chem 7: 10/22/18 09:44 10/24/18 09:45 Labs: Abnormal lab results 10/23/18 10/23/18 10/24/18 Range/Units 16:00 20:59 08:47 Sodium (137-145) mmol/L Chloride (98-107) mmol/L BUN (7-17) mg/dL Creatinine (0.7-1.2) mg/dL Glucose (65-100) mg/dL POC Glucose 277 H 401 H 327 H (70-105) Calcium (8.4-10.2) mg/dL Digoxin (0.9-2.0) ng/mL 10/24/18 10/24/18 10/24/18 Range/Units 09:45 09:45 12:31 Sodium 134 L D (137-145) mmol/L Chloride 93.3 L (98-107) mmol/L BUN 30 H (7-17) mg/dL Creatinine 0.5 L (0.7-1.2) mg/dL Glucose 391 H (65-100) mg/dL POC Glucose 219 H (70-105) Calcium 8.0 L (8.4-10.2) mg/dL Digoxin 0.7 L (0.9-2.0) ng/mL - Imaging and Cardiology Venous US: report reviewed, image reviewed Assessment and Plan We'll order a CT angiogram of the abdomen and pelvis with runoff to the feet. The patient will likely need revascularization procedure for left leg to optimize wound healing.
[2018-10-24] MEDS: LANOXIN PO SCH (18:27)
--- NOTE | 2018-10-24 18:53 | Cat Scan Report ---
PROCEDURE: CT ANGIO ABD/FEMORAL ABD AORTA TECHNIQUE: Axial helical imaging was performed through the mid and lower abdomen and pelvis and lowe r extremities following administration of IV contrast. HISTORY: critical limb ischemia of the left lower extremity COMPARISONS: Arterial duplex lower extremity dated October 19, [address] abdomen and pelvis dated Sep. FINDINGS: The timing of the IV bolus is not appropriate for an arterial study. Therefore evaluation of the jackie rial structures of the abdomen, pelvis and lower extremities for evidence of occlusion or hemodynamic ally significant stenoses is not possible with this study. The visualized portion of the liver is notable for heterogeneous enhancement of the liver of unclear etiology. There is no definite evidence of a focal mass. The visualized portion of the spleen is unremarkable in appearance. The pancreas, kidneys and adrenal glands are unremarkable. The gallbladder is mildly distended and unremarkable. The bowel is normal caliber. There is colonic diverticulosis without definite radiographic evidence of diverticulitis. There is a moderate amount of stool in the ascending and transverse colon and mild amount of stool in the descending and sigmoid colon. There is a moderate degree of ascites in the abdomen and pelvis. The abdominal aorta is normal caliber. There is atherosclerotic vascular calcification of the large, medium and small caliber arteries of the abdomen, pelvis and lower extremities.. There is no evidence of intra-abdominal adenopathy. The urinary bladder is mildly distended and unremarkable. The uterus and adnexa are unremarkable. The bony structures are notable for evidence of degenerative change of the lumbar spine, right hip an d bilateral tibiofemoral and patellofemoral joints. There is diffuse subcutaneous edema in the abdomen, pelvis and lower extremities. IMPRESSION: 1. The timing of the bolus is not appropriate for an arterial study. Therefore evaluation of the jackie rial structures of the abdomen, pelvis and lower extremities for evidence of occlusion or hemodynamic ally significant stenoses is not possible with this study. If further imaging is required, repeat imaging with appropriate timing of bolus for an arteriogram qu ality study would be helpful. Alternatively conventional angiography may be helpful if there is a declan n for vascular intervention. 2. There is atherosclerotic vascular calcification of the large, medium and small caliber arteries of the abdomen, pelvis and lower extremities. 3. Colonic diverticulosis. 4. Moderate ascites not significantly changed. 5. Degenerative change lumbar spine, right hip and bilateral tibiofemoral and patellofemoral joints. 6. Diffuse cutaneous edema. 7. Heterogeneous appearance of the liver of unclear etiology. There is no demonstration of a focal ma ss. This document is electronically signed by Natividad Handy MD., October 24 2018 06:50:45 PM ET
[2018-10-24] MEDS: AMBIEN PO PRN (21:26)
[2018-10-24] MEDS: LANTUS SUB-Q SCH (21:27)
[2018-10-25] MEDS: DAKIN'S HALF STRENGTH TP SCH ×3 (01:56→21:33)
[2018-10-25] MEDS: NORCO 5/325 PO PRN ×4 (02:21→20:45)
[2018-10-25] MEDS: DUONEB *Not for PRN Use IH SCH ×4 (02:24→20:29)
--- NOTE | 2018-10-25 03:28 | Progress Note ---
Assessment and Plan - Patient Problems (1) Chest pain Current Visit: Yes Status: Resolved Plan to address problem: resolved. (2) CHF (congestive heart failure) Current Visit: Yes Status: Chronic Qualifiers: Plan to address problem: Diuretics. (3) CAD (coronary artery disease) of artery bypass graft Current Visit: No Status: Chronic Plan to address problem: supportive., follow cardiology. (4) Cellulitis Current Visit: No Status: Chronic Qualifiers: Site of cellulitis: extremity Site of cellulitis of extremity: lower extremity Laterality: left Qualified Code(s): L03.116 - Cellulitis of left lower limb Plan to address problem: wound care. post surgery today. follow vascular. (5) Diabetes Current Visit: No Status: Chronic Plan to address problem: control BG. Gross non compliant at home with diet. (6) Peripheral vascular disease due to secondary diabetes Current Visit: Yes Status: Acute Plan to address problem: follow vascular, CT angio, tight control of BG. Subjective Date of service: 10/25/18 Interval history: Patient is seen/examined, resting in bed,, records reviewed, case discussed, put on mild pain control.Wbc elevated due to steroids. Patient seen/examined, resting in bed, records reviewed, Will start working on d/c plans. Patient seen/examined, resting in bed, I have read the wound surgeon notes, plans for procedure tomorrow. Once stable, post surgery, will d/c home. hyperbaric therapy to be arranged out patient, once cardio/pulm clearance done, and patient in compliant with her care, ie diet, BG, smoking, etc. Will put on some pain meds. Patient seen/examined, resting in bed post wound debridment, after which she had Vtack, cardiology now on the case, and will clear for ba therapy.amparo, will also get PULm consult for the same reason. Patient seen/examined, resting in bed, records reviewed, case d/w patient. i have d/w pulm service.I am awaiting for both cardiology/cardiology to clear her for hyperbaric therapy., after which patient will be d/c once stable. Patient seen/examined, resting in bed, labs reviewed, and addressed.Notes reviewed. will d/c if no procedure will be done. Patient seen/resting in bed, late entry for 10/24/18, service. Consultants notes reviewed, well come vascular procedure.will recheck new labs before any procedure. await CT angio. Objective - Constitutional Vitals: Vital Signs - 12hr 10/24/18 10/24/18 10/24/18 15:54 16:00 16:30 Temperature 98.9 F Pulse Rate 94 H 98 H Pulse Rate [ Anterior Bilateral Throughout] Respiratory 20 20 Rate Respiratory Rate [Anterior Bilateral Throughout] Blood Pressure Blood Pressure 115/60 [Left] O2 Sat by Pulse Oximetry 10/24/18 10/24/18 10/24/18 18:27 19:44 19:57 Temperature Pulse Rate 98 H Pulse Rate [ 106 H 108 H Anterior Bilateral Throughout] Respiratory Rate Respiratory 18 18 Rate [Anterior Bilateral Throughout] Blood Pressure 115/60 Blood Pressure [Left] O2 Sat by Pulse 97 Oximetry 10/24/18 10/24/18 10/25/18 19:59 21:27 00:05 Temperature 98.0 F 97.8 F Pulse Rate 99 H 99 H 101 H Pulse Rate [ Anterior Bilateral Throughout] Respiratory 18 18 Rate Respiratory Rate [Anterior Bilateral Throughout] Blood Pressure 126/78 126/78 135/76 Blood Pressure [Left] O2 Sat by Pulse 98 96 Oximetry 10/25/18 10/25/18 02:24 02:31 Temperature Pulse Rate Pulse Rate [ 96 H 105 H Anterior Bilateral Throughout] Respiratory Rate Respiratory 18 18 Rate [Anterior Bilateral Throughout] Blood Pressure Blood Pressure [Left] O2 Sat by Pulse Oximetry General appearance: Present: mild distress, well-nourished - EENT Eyes: PERRL, EOM intact ENT: hearing intact, clear oral mucosa Ears: bilateral: normal - Neck Neck: supple, normal ROM - Respiratory Respiratory effort: normal Respiratory: bilateral: CTA - Breasts Breasts: deferred - Cardiovascular Rhythm: regular Heart Sounds: Present: S1 & S2. Absent: gallop, rub Extremities: pulses intact, No edema, normal color, Full ROM - Gastrointestinal General gastrointestinal: Present: soft, non-tender, non-distended, normal bowel sounds Rectal Exam: deferred - Genitourinary Female genitourinary: deferred - Integumentary Integumentary: clear, warm, dry - Musculoskeletal Musculoskeletal: 1, strength equal bilaterally - Neurologic Neurologic: moves all extremities - Psychiatric Psychiatric: memory intact, appropriate mood/affect, intact judgment & insight - Labs CBC & Chem 7: 10/22/18 09:44 10/24/18 09:45 Labs: Abnormal lab results 10/24/18 10/24/18 10/24/18 Range/Units 08:47 09:45 09:45 Sodium 134 L D (137-145) mmol/L Chloride 93.3 L (98-107) mmol/L BUN 30 H (7-17) mg/dL Creatinine 0.5 L (0.7-1.2) mg/dL Glucose 391 H (65-100) mg/dL POC Glucose 327 H (70-105) Calcium 8.0 L (8.4-10.2) mg/dL Digoxin 0.7 L (0.9-2.0) ng/mL 10/24/18 10/24/18 10/24/18 Range/Units 12:31 16:37 21:14 Sodium (137-145) mmol/L Chloride (98-107) mmol/L BUN (7-17) mg/dL Creatinine (0.7-1.2) mg/dL Glucose (65-100) mg/dL POC Glucose 219 H 148 H 355 H (70-105) Calcium (8.4-10.2) mg/dL Digoxin (0.9-2.0) ng/mL Medications & Allergies - Medications Allergies/Adverse Reactions: Allergies Penicillins Allergy (Verified 04/03/18 12:43) Itching Home Medications: Home Medications Medication Instructions Recorded Confirmed Last Taken Type Aspirin [Aspirin BABY CHEW TAB] 81 mg PO DAILY #100 tab.chew 09/07/18 10/16/18 Unknown Rx AtorvaSTATin [Lipitor] 40 mg PO QHS #30 tablet 09/07/18 10/16/18 Unknown Rx Gabapentin [Neurontin] 300 mg PO TID #90 capsule 09/07/18 10/16/18 Unknown Rx Insulin Glargine [Lantus VIAL] 20 units SUB-Q QHS #1 vial 09/07/18 10/16/18 Unknown Rx Ipratropium/Albuterol Sulfate 1 ampul IH QIDRT #120 ampul.neb 09/07/18 10/16/18 Unknown Rx [DUONEB *Not for PRN Use*] Lispro Insulin [Humalog] 5 unit SUB-Q ACHS #5 units 09/07/18 10/16/18 Unknown Rx Furosemide [Lasix TAB] 40 mg PO BID #60 tablet 10/08/18 10/16/18 Unknown Rx LORazepam [Ativan] 1 mg PO Q4H PRN #14 tablet 10/08/18 10/16/18 Unknown Rx oxyCODONE /ACETAMINOPHEN [Percocet 2 tab PO Q6H PRN #20 tablet 10/08/18 10/16/18 Unknown Rx 5/325 mg] Lisinopril [Prinivil] 2.5 mg PO QDAY 10/16/18 10/16/18 Unknown History Active Medications: Generic Name Dose Route Start Last Admin Trade Name Freq PRN Reason Stop Dose Admin Acetaminophen/Hydrocodone Bitart 1 each 10/19/18 10:01 10/25/18 02:21 [place] 5/325 PO 1 each Q6H PRN Administration Pain, Moderate (4-6) Albuterol/Ipratropium 1 ampul 10/23/18 20:00 10/25/18 02:24 Duoneb *Not For Prn Use* IH 1 ampul Q6HRT LUZ Administration Aspirin 81 mg 10/17/18 10:00 10/24/18 09:38 Baby Aspirin PO 81 mg DAILY LUZ Administration Atorvastatin Calcium 40 mg 10/16/18 22:00 10/24/18 21:26 Lipitor PO 40 mg QHS LUZ Administration Digoxin 0.25 mg 10/21/18 17:00 10/24/18 18:27 Lanoxin PO 0.25 mg DAILY@1700 LUZ Administration Furosemide 40 mg 10/17/18 06:00 10/24/18 18:25 Lasix IV 40 mg 0600,1800 LUZ Administration Gabapentin 300 mg 10/16/18 20:00 10/24/18 20:35 Neurontin PO 300 mg TID LUZ Administration Insulin Glargine 20 units 10/16/18 22:00 10/24/18 21:27 Lantus SUB-Q 20 units QHS LUZ Administration Insulin Human Lispro 5 unit 10/16/18 22:00 10/24/18 21:27 Humalog SUB-Q 5 unit ACHS LUZ Administration Insulin Human Lispro 0 unit 10/19/18 11:30 10/24/18 21:28 Humalog SUB-Q 8 unit ACHS LUZ Administration Protocol Lisinopril 2.5 mg 10/17/18 10:00 04/26/19 09:39 Zestril PO 2.5 mg QDAY LUZ Administration Lorazepam 1 mg 10/16/18 18:49 10/24/18 21:26 Ativan PO 1 mg Q4H PRN Administration Anxiety Methylprednisolone Sodium Succinate 40 mg 10/16/18 22:00 10/24/18 21:26 Solu-Medrol IV 40 mg Q12H LUZ Administration Metoprolol Tartrate 2.5 mg 10/20/18 16:37 Lopressor IV Q6HR PRN Tachyarrhythmias Metoprolol Tartrate 50 mg 10/21/18 14:00 10/24/18 21:27 Lopressor PO 50 mg Q8HR LUZ Administration Morphine Sulfate 2 mg 10/20/18 08:59 10/24/18 21:26 Morphine IV 2 mg Q6H PRN Administration Pain , Severe (7-10) Pseudoephedrine/Acetam/Chlorphenir 10 ml 10/21/18 15:19 10/24/18 21:26 Robitussin Ac PO 10 ml Q6H PRN Administration Cough Sodium Hypochlorite 1 applic 10/22/18 11:00 10/25/18 01:56 Dakin's Half Strength TP 1 applicator BID LUZ Administration Zolpidem Tartrate 5 mg 10/16/18 20:12 10/24/18 21:26 Ambien PO 5 mg QHS PRN Administration Sleep
[2018-10-25 06:02] LABS: Hematocrit 36.1 % (30.3-42.9); Hemoglobin 11.1 gm/dl (10.1-14.3); Mean Corpuscular HGB Conc 31 % (30-34); Mean Corpuscular Volume 83 fl (79-97); Platelet Count 170 K/mm3 (140-440); Red Blood Count 4.38 M/mm3 (3.65-5.03)
[2018-10-25 06:05] LABS: Red Cell Distribution Width 21.2 % (13.2-15.2)
[2018-10-25] MEDS: LOPRESSOR PO SCH ×3 (06:09→21:31)
[2018-10-25] MEDS: LASIX IV SCH ×2 (06:09→18:52)
[2018-10-25] MEDS: MORPHINE IV PRN (06:10)
[2018-10-25 06:17] LABS: INR 1.22 (0.87-1.13)
[2018-10-25 06:18] LABS: Partial Thromboplastin Time 26.9 Sec. (24.2-36.6)
[2018-10-25 06:39] LABS: BUN/Creatinine Ratio 40; Blood Urea Nitrogen 24 mg/dL (7-17); Calcium 8.3 mg/dL (8.4-10.2); Hemolysis Index 5
[2018-10-25 07:12] LABS: Band Neutrophils # (Manual) 0.4 K/mm3; Basophils % (Manual) 0 % (0.0-1.8); Eosinophils % (Manual) 0 % (0.0-4.3); Total Cells Counted 100
[2018-10-25 07:13] LABS: Anisocytosis 1+; Platelet Estimate Consistent w Auto
[2018-10-25] MEDS: NEURONTIN PO SCH ×3 (08:22→21:31)
[2018-10-25] MEDS: HumaLOG SUB-Q SCH ×8 (08:25→21:30)
[2018-10-25] MEDS: SOLU-Medrol IV SCH ×2 (10:37→21:31)
[2018-10-25] MEDS: BABY ASPIRIN PO SCH (10:38)
[2018-10-25] MEDS: ZESTRIL PO SCH (10:38)
--- NOTE | 2018-10-25 11:36 | Progress Note ---
Assessment and Plan - Patient Problems (1) Rapid atrial fibrillation Current Visit: Yes Status: Acute Plan to address problem: Patient has permanent atrial fibrillation, with increased ventricular response following foot surgery. Rate control strategy with medical therapy as outlined. Resume oral anticoagulation with Eliquis when okayed by surgical service. Subjective Date of service: 10/25/18 Interval history: Patient is comfortable, and no cardiac complaints, atrial fibrillation rate is well controlled. Objective Vital Signs Temp Pulse Pulse Resp Resp BP BP 10/25/18 10:38 93 H 120/82 10/25/18 08:52 102 H 18 10/25/18 08:40 97 H 18 10/25/18 08:35 98 H 10/25/18 07:47 97.3 F L 89 18 120/82 10/25/18 06:09 97 H 123/75 10/25/18 05:08 98.3 F 97 H 18 123/75 10/25/18 02:31 105 H 18 10/25/18 02:24 96 H 18 10/25/18 00:05 97.8 F 101 H 18 135/76 10/25/18 00:00 90 10/24/18 22:00 10/24/18 21:27 99 H 126/78 10/24/18 19:59 98.0 F 99 H 18 126/78 10/24/18 19:57 108 H 18 10/24/18 19:44 106 H 18 10/24/18 18:27 98 H 115/60 10/24/18 16:30 98.9 F 98 H 20 115/60 10/24/18 16:00 94 H 10/24/18 15:54 20 10/24/18 14:01 96 H 120/76 10/24/18 14:00 98.2 F 86 22 120/76 10/24/18 13:53 98 H 20 10/24/18 13:43 91 H 20 10/24/18 12:59 20 10/24/18 12:34 96 H 120/76 Pulse Ox 10/25/18 10:38 10/25/18 08:52 99 10/25/18 08:40 10/25/18 08:35 10/25/18 07:47 97 10/25/18 06:09 10/25/18 05:08 98 10/25/18 02:31 10/25/18 02:24 10/25/18 00:05 96 10/25/18 00:00 10/24/18 22:00 96 10/24/18 21:27 10/24/18 19:59 98 10/24/18 19:57 10/24/18 19:44 97 10/24/18 18:27 10/24/18 16:30 10/24/18 16:00 10/24/18 15:54 10/24/18 14:01 10/24/18 14:00 94 10/24/18 13:53 10/24/18 13:43 10/24/18 12:59 10/24/18 12:34 95 - Physical Examination General: No Apparent Distress HEENT: Positive: PERRL Neck: Positive: trachea midline Cardiac: Positive: irregularly irregular Lungs: Positive: Decreased Breath Sounds Neuro: Positive: Grossly Intact Abdomen: Positive: Soft Skin: Positive: Clear Extremities: Absent: edema - Labs and Meds Coagulation 10/25/18 Range/Units 05:32 PT 16.2 H (12.2-14.9) Sec. INR 1.22 H (0.87-1.13) APTT 26.9 (24.2-36.6) Sec. CBC 10/25/18 Range/Units 05:32 WBC 9.1 (4.5-11.0) K/mm3 RBC 4.38 (3.65-5.03) M/mm3 Hgb 11.1 (10.1-14.3) gm/dl Hct 36.1 (30.3-42.9) % Plt Count 170 (140-440) K/mm3 Comprehensive Metabolic Panel 10/25/18 Range/Units 05:32 Sodium 139 (137-145) mmol/L Potassium 4.2 (3.6-5.0) mmol/L Chloride 96.5 L (98-107) mmol/L Carbon Dioxide 32 H D (22-30) mmol/L BUN 24 H (7-17) mg/dL Creatinine 0.6 L (0.7-1.2) mg/dL Glucose 264 H (65-100) mg/dL Calcium 8.3 L (8.4-10.2) mg/dL - Allied health notes Allied health notes reviewed: nursing
[2018-10-25] MEDS: ROBITUSSIN AC PO PRN (12:28)
--- NOTE | 2018-10-25 12:54 | Progress Note ---
Assessment and Plan h/o COPD Tobacco use disorder Morbid obesity Coronary artery disease s/p coronary bypass in 2013, Ischemic cardiomyopathy LVEF 30-35% Persistent atrial flutter fibrillation Peripheral arterial disease, Foot ulcers s/p debridement - schedule Brovana and Pulmicort for COPD - change duonebs to prn - taper solumedrol to 40 mg IV qd - continue anticoagulation while monitoring H&H - Smoking cessation counselling done prior and at each visit - Needs out patient sleep study - continue supplemental oxygen t keep O2 sat>90% - Analgesia, limit narcotics - Tight glycemic control, to help promote wound healing (BG 140 - 180 mg/dl) - PT/OT/mobility as tolerated - Cardioprotective measures - Chronic home medications - Weight loss and life style modifications - Continue supportive care - Monitor hyponatremia - contact isolation ... re-evaluate in am & prn Subjective Date of service: 10/25/18 Principal diagnosis: COPD; Morbid obesity; CAD; CMOP (EF 30-35%); Persistent A- fib/flutter; PAD Interval history: Patient is seen today for: COPD; Morbid obesity; Coronary artery disease s/p coronary bypass in 2013; Ischemic cardiomyopathy LVEF 30-35%; Persistent atrial flutter fibrillation; Peripheral arterial disease; Foot ulcers s/p debridement Seen and examined at bedside; 24-hour events reviewed; nursing and respiratory care staff consulted; no adverse overnight events reported to me; s/p debridement of foot wounds/ulcers; resting in bed; remains on supplemental oxygen; denies acute chest pains or palpitations; No N/V/F/C Objective Vital Signs - 12hr 10/25/18 10/25/18 10/25/18 02:24 02:31 05:08 Temperature 98.3 F Pulse Rate 97 H Pulse Rate [ 96 H 105 H Anterior Bilateral Throughout] Respiratory 18 Rate Respiratory 18 18 Rate [Anterior Bilateral Throughout] Blood Pressure 123/75 O2 Sat by Pulse 98 Oximetry 10/25/18 10/25/18 10/25/18 06:09 07:47 08:35 Temperature 97.3 F L Pulse Rate 97 H 89 98 H Pulse Rate [ Anterior Bilateral Throughout] Respiratory 18 Rate Respiratory Rate [Anterior Bilateral Throughout] Blood Pressure 123/75 120/82 O2 Sat by Pulse 97 Oximetry 10/25/18 10/25/18 10/25/18 08:40 08:52 10:00 Temperature Pulse Rate Pulse Rate [ 97 H 102 H Anterior Bilateral Throughout] Respiratory Rate Respiratory 18 18 Rate [Anterior Bilateral Throughout] Blood Pressure O2 Sat by Pulse 99 97 Oximetry 10/25/18 10:38 Temperature Pulse Rate 93 H Pulse Rate [ Anterior Bilateral Throughout] Respiratory Rate Respiratory Rate [Anterior Bilateral Throughout] Blood Pressure 120/82 O2 Sat by Pulse Oximetry Constitutional: alert, other (elderly obese CF normocephalic and with mildly increased resp effort at rest) Eyes: non-icteric ENT: oropharynx moist, other (Mallampati 3) Neck: supple, no JVD, other (large neck circumference) Effort: mildly labored Ascultation: Bilateral: rhonchi (mild), other (prolonged exp phase) Percussion: Bilateral: not dull Cardiovascular: regular rate and rhythm Gastrointestinal: normoactive bowel sounds, soft, non-tender, non-distended Integumentary: rash Extremities: no cyanosis, pink and warm, edema, other (bilateral dressings) Neurologic: normal mental status, non-focal exam, pupils equal and round, CN II- XII normal, motor strength normal and Psychiatric: other (suspect schizoaffective / psych disorder) CBC and BMP: 10/25/18 05:32 10/25/18 05:32 ABG, PT/INR, D-dimer: ABG POC ABG pH 7.418 (7.35-7.45) 10/22/18 13:46 POC ABG pCO2 39.0 (35-45) 10/22/18 13:46 POC ABG pO2 80 (80-105) 10/22/18 13:46 POC ABG HCO3 25.2 (22-26 mml/L) 10/22/18 13:46 POC ABG Total CO2 26 (23-27mmol/L) 10/22/18 13:46 POC ABG O2 Sat 96 10/22/18 13:46 PT/INR, D-dimer PT 16.2 Sec. (12.2-14.9) H 10/25/18 05:32 INR 1.22 (0.87-1.13) H 10/25/18 05:32 Abnormal lab findings: Abnormal Labs 10/16/18 10/16/18 10/16/18 14:39 14:39 14:39 WBC 16.6 H MCH 26 L RDW 21.6 H Lymph % (Auto) 10.6 L Lymph # [place] # 0.9 H Seg Neutrophils % 82.9 H Seg Neuts % (Manual) Lymphocytes % (Manual) Nucleated RBC % Seg Neutrophils # 13.8 H Seg Neutrophils # Man Lymphocytes # (Manual) PT 16.6 H INR 1.26 H Sodium Potassium Chloride 107.9 H Carbon Dioxide 21 L BUN Creatinine 0.5 L Glucose 182 H POC Glucose Calcium 7.6 L NT-Pro-B Natriuret Pep U Epithel Cells (Auto) Digoxin 10/16/18 10/16/18 10/16/18 14:39 17:55 19:30 WBC MCH RDW Lymph % (Auto) Lymph # [place] # Seg Neutrophils % Seg Neuts % (Manual) Lymphocytes % (Manual) Nucleated RBC % Seg Neutrophils # Seg Neutrophils # Man Lymphocytes # (Manual) PT INR Sodium Potassium Chloride Carbon Dioxide BUN Creatinine Glucose POC Glucose 164 H Calcium NT-Pro-B Natriuret Pep 4638 H U Epithel Cells (Auto) 15.0 H Digoxin 10/16/18 10/17/18 10/17/18 21:59 05:57 05:57 WBC 17.5 H MCH 25 L RDW 22.3 H Lymph % (Auto) Lymph # [place] # Seg Neutrophils % Seg Neuts % (Manual) 91.0 H Lymphocytes % (Manual) 7.0 L Nucleated RBC % 1.0 H Seg Neutrophils # Seg Neutrophils # Man 15.9 H Lymphocytes # (Manual) PT INR Sodium Potassium Chloride Carbon Dioxide BUN 18 H Creatinine 0.6 L Glucose 197 H POC Glucose 174 H Calcium 7.8 L NT-Pro-B Natriuret Pep U Epithel Cells (Auto) Digoxin 10/17/18 10/17/18 10/17/18 07:49 12:03 16:59 WBC MCH RDW Lymph % (Auto) Lymph # [place] # Seg Neutrophils % Seg Neuts % (Manual) Lymphocytes % (Manual) Nucleated RBC % Seg Neutrophils # Seg Neutrophils # Man Lymphocytes # (Manual) PT INR Sodium Potassium Chloride Carbon Dioxide BUN Creatinine Glucose POC Glucose 195 H 308 H 307 H Calcium NT-Pro-B Natriuret Pep U Epithel Cells (Auto) Digoxin 10/17/18 10/18/18 10/18/18 21:30 08:20 11:57 WBC MCH RDW Lymph % (Auto) Lymph # [place] # Seg Neutrophils % Seg Neuts % (Manual) Lymphocytes % (Manual) Nucleated RBC % Seg Neutrophils # Seg Neutrophils # Man Lymphocytes # (Manual) PT INR Sodium Potassium Chloride Carbon Dioxide BUN Creatinine Glucose POC Glucose 344 H 322 H 302 H Calcium NT-Pro-B Natriuret Pep U Epithel Cells (Auto) Digoxin 10/18/18 10/18/18 10/18/18 17:26 18:00 22:14 WBC MCH RDW Lymph % (Auto) Lymph # [place] # Seg Neutrophils % Seg Neuts % (Manual) Lymphocytes % (Manual) Nucleated RBC % Seg Neutrophils # Seg Neutrophils # Man Lymphocytes # (Manual) PT INR Sodium Potassium Chloride Carbon Dioxide BUN Creatinine Glucose POC Glucose 269 H 290 H 340 H Calcium NT-Pro-B Natriuret Pep U Epithel Cells (Auto) Digoxin 10/19/18 10/19/18 10/19/18 07:38 11:46 17:31 WBC MCH RDW Lymph % (Auto) Lymph # [place] # Seg Neutrophils % Seg Neuts % (Manual) Lymphocytes % (Manual) Nucleated RBC % Seg Neutrophils # Seg Neutrophils # Man Lymphocytes # (Manual) PT INR Sodium Potassium Chloride Carbon Dioxide BUN Creatinine Glucose POC Glucose 304 H 234 H 319 H Calcium NT-Pro-B Natriuret Pep U Epithel Cells (Auto) Digoxin 10/19/18 10/20/18 10/20/18 21:22 06:00 06:00 WBC 21.5 H MCH 25 L RDW 21.4 H Lymph % (Auto) Lymph # [place] # Seg Neutrophils % Seg Neuts % (Manual) 98.0 H Lymphocytes % (Manual) 1.0 L Nucleated RBC % Seg Neutrophils # Seg Neutrophils # Man 21.1 H Lymphocytes # (Manual) 0.2 L PT INR Sodium Potassium Chloride Carbon Dioxide BUN 26 H Creatinine 0.4 L Glucose 177 H POC Glucose 330 H Calcium 8.2 L NT-Pro-B Natriuret Pep U Epithel Cells (Auto) Digoxin 10/20/18 10/20/18 10/21/18 11:41 15:16 08:23 WBC MCH RDW Lymph % (Auto) Lymph # [place] # Seg Neutrophils % Seg Neuts % (Manual) Lymphocytes % (Manual) Nucleated RBC % Seg Neutrophils # Seg Neutrophils # Man Lymphocytes # (Manual) PT INR Sodium Potassium Chloride Carbon Dioxide BUN Creatinine Glucose POC Glucose 178 H 178 H 237 H Calcium NT-Pro-B Natriuret Pep U Epithel Cells (Auto) Digoxin 10/21/18 10/21/18 10/21/18 12:02 21:04 23:27 WBC 11.9 H MCH 25 L RDW 21.4 H Lymph % (Auto) 5.9 L Lymph # 0.7 L [place] # Seg Neutrophils % 89.2 H Seg Neuts % (Manual) Lymphocytes % (Manual) Nucleated RBC % Seg Neutrophils # 10.6 H Seg Neutrophils # Man Lymphocytes # (Manual) PT INR Sodium Potassium Chloride Carbon Dioxide BUN Creatinine Glucose POC Glucose 204 H 188 H Calcium NT-Pro-B Natriuret Pep U Epithel Cells (Auto) Digoxin 10/22/18 10/22/18 10/22/18 08:04 09:44 09:44 WBC 15.0 H MCH 26 L RDW 21.2 H Lymph % (Auto) Lymph # [place] # Seg Neutrophils % Seg Neuts % (Manual) 92.0 H Lymphocytes % (Manual) 6.0 L Nucleated RBC % Seg Neutrophils # Seg Neutrophils # Man 13.8 H Lymphocytes # (Manual) 0.9 L PT INR Sodium 136 L Potassium Chloride 96.4 L Carbon Dioxide BUN 42 H Creatinine Glucose 251 H POC Glucose 242 H Calcium 7.9 L NT-Pro-B Natriuret Pep U Epithel Cells (Auto) Digoxin 10/22/18 10/22/18 10/22/18 12:30 15:26 18:06 WBC MCH RDW Lymph % (Auto) Lymph # [place] # Seg Neutrophils % Seg Neuts % (Manual) Lymphocytes % (Manual) Nucleated RBC % Seg Neutrophils # Seg Neutrophils # Man Lymphocytes # (Manual) PT INR Sodium 133 L Potassium 5.8 H D Chloride 95.3 L Carbon Dioxide BUN 41 H Creatinine 0.6 L Glucose 322 H POC Glucose 208 H 218 H Calcium 8.0 L NT-Pro-B Natriuret Pep U Epithel Cells (Auto) Digoxin 10/23/18 10/23/18 10/23/18 07:32 10:16 12:25 WBC MCH RDW Lymph % (Auto) Lymph # [place] # Seg Neutrophils % Seg Neuts % (Manual) Lymphocytes % (Manual) Nucleated RBC % Seg Neutrophils # Seg Neutrophils # Man Lymphocytes # (Manual) PT INR Sodium 146 H D Potassium 5.7 H Chloride 117.7 H Carbon Dioxide BUN 39 H Creatinine 0.5 L Glucose 299 H POC Glucose 125 H 204 H Calcium 7.9 L NT-Pro-B Natriuret Pep U Epithel Cells (Auto) Digoxin 10/23/18 10/23/18 10/24/18 16:00 20:59 08:47 WBC MCH RDW Lymph % (Auto) Lymph # [place] # Seg Neutrophils % Seg Neuts % (Manual) Lymphocytes % (Manual) Nucleated RBC % Seg Neutrophils # Seg Neutrophils # Man Lymphocytes # (Manual) PT INR Sodium Potassium Chloride Carbon Dioxide BUN Creatinine Glucose POC Glucose 277 H 401 H 327 H Calcium NT-Pro-B Natriuret Pep U Epithel Cells (Auto) Digoxin 10/24/18 10/24/18 10/24/18 09:45 09:45 12:31 WBC MCH RDW Lymph % (Auto) Lymph # [place] # Seg Neutrophils % Seg Neuts % (Manual) Lymphocytes % (Manual) Nucleated RBC % Seg Neutrophils # Seg Neutrophils # Man Lymphocytes # (Manual) PT INR Sodium 134 L D Potassium Chloride 93.3 L Carbon Dioxide BUN 30 H Creatinine 0.5 L Glucose 391 H POC Glucose 219 H Calcium 8.0 L NT-Pro-B Natriuret Pep U Epithel Cells (Auto) Digoxin 0.7 L 10/24/18 10/24/18 10/25/18 16:37 21:14 05:32 WBC MCH 25 L RDW 21.2 H Lymph % (Auto) Lymph # [place] # Seg Neutrophils % Seg Neuts % (Manual) 84.0 H Lymphocytes % (Manual) 6.0 L Nucleated RBC % Seg Neutrophils # Seg Neutrophils # Man Lymphocytes # (Manual) 0.5 L PT INR Sodium Potassium Chloride Carbon Dioxide BUN Creatinine Glucose POC Glucose 148 H 355 H Calcium NT-Pro-B Natriuret Pep U Epithel Cells (Auto) Digoxin 10/25/18 10/25/18 10/25/18 05:32 05:32 07:54 WBC MCH RDW Lymph % (Auto) Lymph # [place] # Seg Neutrophils % Seg Neuts % (Manual) Lymphocytes % (Manual) Nucleated RBC % Seg Neutrophils # Seg Neutrophils # Man Lymphocytes # (Manual) PT 16.2 H INR 1.22 H Sodium Potassium Chloride 96.5 L Carbon Dioxide 32 H D BUN 24 H Creatinine 0.6 L Glucose 264 H POC Glucose 233 H Calcium 8.3 L NT-Pro-B Natriuret Pep U Epithel Cells (Auto) Digoxin Allied health notes reviewed: nursing
--- NOTE | 2018-10-25 13:06 | Progress Note ---
Assessment and Plan 58 year old female with PVD, DM and nonhealing lower extremity wounds. RLE wound has adequate blood flow. The open digital amputation has not healed in 4-5 months per patient. Would benefit from HBOT given underlying DM. LLE wound has inadequate blood flow. CTA has poor timing. Will need to be repeated. Will repeat CTA with runoff tomorrow morning. Subjective Date of service: 10/25/18 Principal diagnosis: COPD; Morbid obesity; CAD; CMOP (EF 30-35%); Persistent A-fib/flutter; PAD Interval history: Patient crying when talking with her. Tells me she is "falling apart" and does not want to lose her legs. Palpable right DP pulse. Nonpalpable left pedal pulses. Nonhealing wounds on both feet. Objective - Constitutional Vitals: Vital Signs - 12hr 10/25/18 10/25/18 10/25/18 02:24 02:31 05:08 Temperature 98.3 F Pulse Rate 97 H Pulse Rate [ 96 H 105 H Anterior Bilateral Throughout] Respiratory 18 Rate Respiratory 18 18 Rate [Anterior Bilateral Throughout] Blood Pressure 123/75 O2 Sat by Pulse 98 Oximetry 10/25/18 10/25/18 10/25/18 06:09 07:47 08:35 Temperature 97.3 F L Pulse Rate 97 H 89 98 H Pulse Rate [ Anterior Bilateral Throughout] Respiratory 18 Rate Respiratory Rate [Anterior Bilateral Throughout] Blood Pressure 123/75 120/82 O2 Sat by Pulse 97 Oximetry 10/25/18 10/25/18 10/25/18 08:40 08:52 10:00 Temperature Pulse Rate Pulse Rate [ 97 H 102 H Anterior Bilateral Throughout] Respiratory Rate Respiratory 18 18 Rate [Anterior Bilateral Throughout] Blood Pressure O2 Sat by Pulse 99 97 Oximetry 10/25/18 10:38 Temperature Pulse Rate 93 H Pulse Rate [ Anterior Bilateral Throughout] Respiratory Rate Respiratory Rate [Anterior Bilateral Throughout] Blood Pressure 120/82 O2 Sat by Pulse Oximetry General appearance: Present: no acute distress - EENT Eyes: EOM intact ENT: hearing intact - Respiratory Respiratory effort: normal Extremities: pulses intact (right DP) Extremity abnormal: pulses diminished (left pedal pulses) - Psychiatric Psychiatric: cooperative - Labs CBC & Chem 7: 10/25/18 05:32 10/25/18 05:32 Labs: Abnormal lab results 04/10/24/18 10/25/18 Range/Units 16:37 21:14 05:32 MCH 25 L (28-32) pg RDW 21.2 H (13.2-15.2) % Seg Neuts % (Manual) 84.0 H (40.0-70.0) % Lymphocytes % (Manual) 6.0 L (13.4-35.0) % Lymphocytes # (Manual) 0.5 L (1.2-5.4) K/mm3 PT (12.2-14.9) Sec. INR (0.87-1.13) Chloride (98-107) mmol/L Carbon Dioxide (22-30) mmol/L BUN (7-17) mg/dL Creatinine (0.7-1.2) mg/dL Glucose (65-100) mg/dL POC Glucose 148 H 355 H (70-105) Calcium (8.4-10.2) mg/dL 10/25/18 10/25/18 10/25/18 Range/Units 05:32 05:32 07:54 MCH (28-32) pg RDW (13.2-15.2) % Seg Neuts % (Manual) (40.0-70.0) % Lymphocytes % (Manual) (13.4-35.0) % Lymphocytes # (Manual) (1.2-5.4) K/mm3 PT 16.2 H (12.2-14.9) Sec. INR 1.22 H (0.87-1.13) Chloride 96.5 L (98-107) mmol/L Carbon Dioxide 32 H D (22-30) mmol/L BUN 24 H (7-17) mg/dL Creatinine 0.6 L (0.7-1.2) mg/dL Glucose 264 H (65-100) mg/dL POC Glucose 233 H (70-105) Calcium 8.3 L (8.4-10.2) mg/dL 10/25/18 Range/Units 13:05 MCH (28-32) pg RDW (13.2-15.2) % Seg Neuts % (Manual) (40.0-70.0) % Lymphocytes % (Manual) (13.4-35.0) % Lymphocytes # (Manual) (1.2-5.4) K/mm3 PT (12.2-14.9) Sec. INR (0.87-1.13) Chloride (98-107) mmol/L Carbon Dioxide (22-30) mmol/L BUN (7-17) mg/dL Creatinine (0.7-1.2) mg/dL Glucose (65-100) mg/dL POC Glucose 215 H (70-105) Calcium (8.4-10.2) mg/dL Medications & Allergies - Medications Allergies/Adverse Reactions: Allergies Penicillins Allergy (Verified 04/03/18 12:43) Itching Home Medications: Home Medications Medication Instructions Recorded Confirmed Last Taken Type Aspirin [Aspirin BABY CHEW TAB] 81 mg PO DAILY #100 tab.chew 09/07/18 10/16/18 Unknown Rx AtorvaSTATin [Lipitor] 40 mg PO QHS #30 tablet 09/07/18 10/16/18 Unknown Rx Gabapentin [Neurontin] 300 mg PO TID #90 capsule 09/07/18 10/16/18 Unknown Rx Insulin Glargine [Lantus VIAL] 20 units SUB-Q QHS #1 vial 09/07/18 10/16/18 Unknown Rx Ipratropium/Albuterol Sulfate 1 ampul IH QIDRT #120 ampul.neb 09/07/18 10/16/18 Unknown Rx [DUONEB *Not for PRN Use*] Lispro Insulin [Humalog] 5 unit SUB-Q ACHS #5 units 09/07/18 10/16/18 Unknown Rx Furosemide [Lasix TAB] 40 mg PO BID #60 tablet 10/08/18 10/16/18 Unknown Rx LORazepam [Ativan] 1 mg PO Q4H PRN #14 tablet 10/08/18 10/16/18 Unknown Rx oxyCODONE /ACETAMINOPHEN [Percocet 2 tab PO Q6H PRN #20 tablet 10/08/18 10/16/18 Unknown Rx 5/325 mg] Lisinopril [Prinivil] 2.5 mg PO QDAY 10/16/18 10/16/18 Unknown History Active Medications: Generic Name Dose Route Start Last Admin Trade Name Freq PRN Reason Stop Dose Admin Acetaminophen/Hydrocodone Bitart 1 each 10/19/18 10:01 10/25/18 10:37 [place] 5/325 PO 1 each Q6H PRN Administration Pain, Moderate (4-6) Albuterol/Ipratropium 1 ampul 10/23/18 20:00 10/25/18 08:40 Duoneb *Not For Prn Use* IH 1 ampul Q6HRT LUZ Administration Apixaban 2.5 mg 10/25/18 12:00 Eliquis PO Q12HR LUZ Protocol Aspirin 81 mg 10/17/18 10:00 10/25/18 10:38 Baby Aspirin PO 81 mg DAILY LUZ Administration Atorvastatin Calcium 40 mg 10/16/18 22:00 10/24/18 21:26 Lipitor PO 40 mg QHS LUZ Administration Digoxin 0.25 mg 10/21/18 17:00 10/24/18 18:27 Lanoxin PO 0.25 mg DAILY@1700 LUZ Administration Furosemide 40 mg 10/17/18 06:00 10/25/18 06:09 Lasix IV 40 mg 0600,1800 LUZ Administration Gabapentin 300 mg 10/16/18 20:00 10/25/18 08:22 Neurontin PO 300 mg TID LUZ Administration Insulin Glargine 20 units 10/16/18 22:00 10/24/18 21:27 Lantus SUB-Q 20 units QHS LUZ Administration Insulin Human Lispro 5 unit 10/16/18 22:00 10/25/18 08:25 Humalog SUB-Q 5 unit ACHS LUZ Administration Insulin Human Lispro 0 unit 10/19/18 11:30 10/25/18 08:26 Humalog SUB-Q 3 unit ACHS LUZ Administration Protocol Lisinopril 2.5 mg 10/17/18 10:00 10/25/18 10:38 Zestril PO 2.5 mg QDAY LUZ Administration Lorazepam 1 mg 10/16/18 18:49 10/24/18 21:26 Ativan PO 1 mg Q4H PRN Administration Anxiety Methylprednisolone Sodium Succinate 40 mg 10/16/18 22:00 10/25/18 10:37 Solu-Medrol IV 40 mg Q12H LUZ Administration Metoprolol Tartrate 2.5 mg 10/20/18 16:37 Lopressor IV Q6HR PRN Tachyarrhythmias Metoprolol Tartrate 50 mg 10/21/18 14:00 10/25/18 06:09 Lopressor PO 50 mg Q8HR LUZ Administration Morphine Sulfate 2 mg 10/20/18 08:59 10/25/18 06:10 Morphine IV 2 mg Q6H PRN Administration Pain , Severe (7-10) Pseudoephedrine/Acetam/Chlorphenir 10 ml 10/21/18 15:19 10/25/18 12:28 Robitussin Ac PO 10 ml Q6H PRN Administration Cough Sodium Hypochlorite 1 applic 10/22/18 11:00 10/25/18 10:39 Dakin's Half Strength TP 1 applicator BID LUZ Administration Zolpidem Tartrate 5 mg 10/16/18 20:12 10/24/18 21:26 Ambien PO 5 mg QHS PRN Administration Sleep
[2018-10-25] MEDS: ELIQUIS PO SCH ×2 (15:09→21:32)
[2018-10-25] MEDS: LANOXIN PO SCH (18:51)
[2018-10-25] MEDS: LANTUS SUB-Q SCH (21:29)
[2018-10-25] MEDS: AMBIEN PO PRN (21:31)
[2018-10-25] MEDS: ATIVAN PO PRN (21:31)
--- NOTE | 2018-10-26 00:34 | Progress Note ---
Assessment and Plan - Patient Problems (1) Chest pain Current Visit: Yes Status: Resolved Plan to address problem: resolved. (2) CHF (congestive heart failure) Current Visit: Yes Status: Chronic Qualifiers: Plan to address problem: Diuretics. (3) CAD (coronary artery disease) of artery bypass graft Current Visit: No Status: Chronic Plan to address problem: supportive., follow cardiology. (4) Cellulitis Current Visit: No Status: Chronic Qualifiers: Site of cellulitis: extremity Site of cellulitis of extremity: lower extremity Laterality: left Qualified Code(s): L03.116 - Cellulitis of left lower limb Plan to address problem: wound care. post surgery today. follow vascular. (5) Diabetes Current Visit: No Status: Chronic Plan to address problem: control BG. Gross non compliant at home with diet. (6) Peripheral vascular disease due to secondary diabetes Current Visit: Yes Status: Acute Plan to address problem: follow vascular, CT angio, tight control of BG. Subjective Date of service: 10/26/18 Principal diagnosis: COPD; Morbid obesity; CAD; CMOP (EF 30-35%); Persistent A-fib/flutter; PAD Interval history: Patient is seen/examined, resting in bed,, records reviewed, case discussed, put on mild pain control.Wbc elevated due to steroids. Patient seen/examined, resting in bed, records reviewed, Will start working on d/c plans. Patient seen/examined, resting in bed, I have read the wound surgeon notes, plans for procedure tomorrow. Once stable, post surgery, will d/c home. hyperbaric therapy to be arranged out patient, once cardio/pulm clearance done, and patient in compliant with her care, ie diet, BG, smoking, etc. Will put on some pain meds. Patient seen/examined, resting in bed post wound debridment, after which she had Cjck, cardiology now on the case, and will clear for ba therapy.amparo, will also get PULm consult for the same reason. Patient seen/examined, resting in bed, records reviewed, case d/w patient. i have d/w pulm service.I am awaiting for both cardiology/cardiology to clear her for hyperbaric therapy., after which patient will be d/c once stable. Patient seen/examined, resting in bed, labs reviewed, and addressed.Notes reviewed. will d/c if no procedure will be done. Patient seen/resting in bed, late entry for 10/24/18, service. Consultants notes reviewed, well come vascular procedure.will recheck new labs before any procedure. await CT angio. Patient seen/examined, resting in bed, records/notes reviewed, will follow the CTA with run off tomorrow. Objective - Constitutional Vitals: Vital Signs - 12hr 10/25/18 10/25/18 10/25/18 13:20 13:30 15:08 Temperature Pulse Rate 96 H Pulse Rate [ 99 H 104 H Anterior Bilateral Throughout] Respiratory Rate Respiratory 18 18 Rate [Anterior Bilateral Throughout] Blood Pressure Blood Pressure [Left] O2 Sat by Pulse Oximetry 10/25/18 10/25/18 10/25/18 15:18 16:00 17:39 Temperature 97.5 F L Pulse Rate 84 99 H Pulse Rate [ Anterior Bilateral Throughout] Respiratory 20 18 Rate Respiratory Rate [Anterior Bilateral Throughout] Blood Pressure 129/68 Blood Pressure [Left] O2 Sat by Pulse 96 Oximetry 10/25/18 10/25/18 10/25/18 18:51 20:06 20:30 Temperature 97.7 F Pulse Rate 88 106 H Pulse Rate [ 94 H Anterior Bilateral Throughout] Respiratory 20 Rate Respiratory 18 Rate [Anterior Bilateral Throughout] Blood Pressure 113/66 Blood Pressure [Left] O2 Sat by Pulse 98 Oximetry 10/25/18 10/25/18 10/25/18 20:31 20:45 23:34 Temperature 98.2 F Pulse Rate 80 Pulse Rate [ 101 H Anterior Bilateral Throughout] Respiratory 20 Rate Respiratory 18 Rate [Anterior Bilateral Throughout] Blood Pressure Blood Pressure 135/76 [Left] O2 Sat by Pulse 96 96 Oximetry General appearance: Present: mild distress, well-nourished - EENT Eyes: PERRL, EOM intact ENT: hearing intact, clear oral mucosa Ears: bilateral: normal - Neck Neck: supple, normal ROM - Respiratory Respiratory effort: normal Respiratory: bilateral: CTA - Breasts Breasts: deferred - Cardiovascular Rhythm: regular Heart Sounds: Present: S1 & S2. Absent: gallop, rub Extremities: pulses intact, No edema, normal color, Full ROM - Gastrointestinal General gastrointestinal: Present: soft, non-tender, non-distended, normal bowel sounds Rectal Exam: deferred - Genitourinary Female genitourinary: deferred - Integumentary Integumentary: clear, warm, dry - Musculoskeletal Musculoskeletal: 1, strength equal bilaterally - Neurologic Neurologic: moves all extremities - Psychiatric Psychiatric: memory intact, appropriate mood/affect, intact judgment & insight - Labs CBC & Chem 7: 10/25/18 05:32 10/25/18 05:32 Labs: Abnormal lab results 10/25/18 10/25/18 10/25/18 Range/Units 05:32 05:32 05:32 MCH 25 L (28-32) pg RDW 21.2 H (13.2-15.2) % Seg Neuts % (Manual) 84.0 H (40.0-70.0) % Lymphocytes % (Manual) 6.0 L (13.4-35.0) % Lymphocytes # (Manual) 0.5 L (1.2-5.4) K/mm3 PT 16.2 H (12.2-14.9) Sec. INR 1.22 H (0.87-1.13) Chloride 96.5 L (98-107) mmol/L Carbon Dioxide 32 H D (22-30) mmol/L BUN 24 H (7-17) mg/dL Creatinine 0.6 L (0.7-1.2) mg/dL Glucose 264 H (65-100) mg/dL POC Glucose (70-105) Calcium 8.3 L (8.4-10.2) mg/dL 10/25/18 10/25/18 10/25/18 Range/Units 07:54 13:05 18:48 MCH (28-32) pg RDW (13.2-15.2) % Seg Neuts % (Manual) (40.0-70.0) % Lymphocytes % (Manual) (13.4-35.0) % Lymphocytes # (Manual) (1.2-5.4) K/mm3 PT (12.2-14.9) Sec. INR (0.87-1.13) Chloride (98-107) mmol/L Carbon Dioxide (22-30) mmol/L BUN (7-17) mg/dL Creatinine (0.7-1.2) mg/dL Glucose (65-100) mg/dL POC Glucose 233 H 215 H 384 H (70-105) Calcium (8.4-10.2) mg/dL 10/25/18 Range/Units 20:57 MCH (28-32) pg RDW (13.2-15.2) % Seg Neuts % (Manual) (40.0-70.0) % Lymphocytes % (Manual) (13.4-35.0) % Lymphocytes # (Manual) (1.2-5.4) K/mm3 PT (12.2-14.9) Sec. INR (0.87-1.13) Chloride (98-107) mmol/L Carbon Dioxide (22-30) mmol/L BUN (7-17) mg/dL Creatinine (0.7-1.2) mg/dL Glucose (65-100) mg/dL POC Glucose 264 H (70-105) Calcium (8.4-10.2) mg/dL Medications & Allergies - Medications Allergies/Adverse Reactions: Allergies Penicillins Allergy (Verified 04/03/18 12:43) Itching Home Medications: Home Medications Medication Instructions Recorded Confirmed Last Taken Type Aspirin [Aspirin BABY CHEW TAB] 81 mg PO DAILY #100 tab.chew 09/07/18 10/16/18 Unknown Rx AtorvaSTATin [Lipitor] 40 mg PO QHS #30 tablet 09/07/18 10/16/18 Unknown Rx Gabapentin [Neurontin] 300 mg PO TID #90 capsule 09/07/18 10/16/18 Unknown Rx Insulin Glargine [Lantus VIAL] 20 units SUB-Q QHS #1 vial 09/07/18 10/16/18 Unknown Rx Ipratropium/Albuterol Sulfate 1 ampul IH QIDRT #120 ampul.neb 09/07/18 10/16/18 Unknown Rx [DUONEB *Not for PRN Use*] Lispro Insulin [Humalog] 5 unit SUB-Q ACHS #5 units 09/07/18 10/16/18 Unknown Rx Furosemide [Lasix TAB] 40 mg PO BID #60 tablet 10/08/18 10/16/18 Unknown Rx LORazepam [Ativan] 1 mg PO Q4H PRN #14 tablet 10/08/18 10/16/18 Unknown Rx oxyCODONE /ACETAMINOPHEN [Percocet 2 tab PO Q6H PRN #20 tablet 10/08/18 10/16/18 Unknown Rx 5/325 mg] Lisinopril [Prinivil] 2.5 mg PO QDAY 10/16/18 10/16/18 Unknown History Active Medications: Generic Name Dose Route Start Last Admin Trade Name Freq PRN Reason Stop Dose Admin Acetaminophen/Hydrocodone Bitart 1 each 10/19/18 10:01 10/25/18 20:45 [place] 5/325 PO 1 each Q6H PRN Administration Pain, Moderate (4-6) Albuterol/Ipratropium 1 ampul 10/23/18 20:00 10/25/18 20:29 Duoneb *Not For Prn Use* IH 1 ampul Q6HRT LUZ Administration Apixaban 2.5 mg 10/25/18 12:00 10/25/18 21:32 Eliquis PO Not Given Q12HR LUZ Protocol Aspirin 81 mg 10/17/18 10:00 10/25/18 10:38 Baby Aspirin PO 81 mg DAILY LUZ Administration Atorvastatin Calcium 40 mg 10/16/18 22:00 10/25/18 21:31 Lipitor PO 40 mg QHS LUZ Administration Digoxin 0.25 mg 10/21/18 17:00 10/25/18 18:51 Lanoxin PO 0.25 mg DAILY@1700 LUZ Administration Furosemide 40 mg 10/17/18 06:00 10/25/18 18:52 Lasix IV 40 mg 0600,1800 LUZ Administration Gabapentin 300 mg 10/16/18 20:00 10/25/18 21:31 Neurontin PO 300 mg TID LUZ Administration Insulin Glargine 20 units 10/16/18 22:00 10/25/18 21:29 Lantus SUB-Q 20 units QHS LUZ Administration Insulin Human Lispro 5 unit 10/16/18 22:00 10/25/18 21:30 Humalog SUB-Q 5 unit ACHS LUZ Administration Insulin Human Lispro 0 unit 10/19/18 11:30 10/25/18 21:30 Humalog SUB-Q 4 unit ACHS LUZ Administration Protocol Lisinopril 2.5 mg 10/17/18 10:00 10/25/18 10:38 Zestril PO 2.5 mg QDAY LUZ Administration Lorazepam 1 mg 10/16/18 18:49 10/25/18 21:31 Ativan PO 1 mg Q4H PRN Administration Anxiety Methylprednisolone Sodium Succinate 40 mg 10/16/18 22:00 10/25/18 21:31 Solu-Medrol IV 40 mg Q12H LUZ Administration Metoprolol Tartrate 2.5 mg 10/20/18 16:37 Lopressor IV Q6HR PRN Tachyarrhythmias Metoprolol Tartrate 50 mg 10/21/18 14:00 10/25/18 21:31 Lopressor PO 50 mg Q8HR LUZ Administration Morphine Sulfate 2 mg 10/20/18 08:59 10/25/18 06:10 Morphine IV 2 mg Q6H PRN Administration Pain , Severe (7-10) Pseudoephedrine/Acetam/Chlorphenir 10 ml 10/21/18 15:19 10/25/18 12:28 Robitussin Ac PO 10 ml Q6H PRN Administration Cough Sodium Hypochlorite 1 applic 10/22/18 11:00 10/25/18 21:33 Dakin's Half Strength TP 1 applicator BID LUZ Administration Zolpidem Tartrate 5 mg 10/16/18 20:12 10/25/18 21:31 Ambien PO 5 mg QHS PRN Administration Sleep
[2018-10-26] MEDS: NORCO 5/325 PO PRN ×3 (01:57→17:01)
[2018-10-26] MEDS: DUONEB *Not for PRN Use IH SCH ×3 (02:00→13:56)
[2018-10-26] MEDS: LASIX IV SCH ×3 (05:05→17:02)
[2018-10-26] MEDS: LOPRESSOR PO SCH ×3 (05:05→21:18)
[2018-10-26] MEDS: MORPHINE IV PRN ×3 (05:36→21:17)
[2018-10-26] MEDS: NEURONTIN PO SCH ×3 (08:42→21:18)
[2018-10-26] MEDS: HumaLOG SUB-Q SCH ×8 (08:44→21:30)
[2018-10-26] MEDS: ROBITUSSIN AC PO PRN (10:37)
[2018-10-26] MEDS: ATIVAN PO PRN (10:37)
[2018-10-26] MEDS: ELIQUIS PO SCH ×2 (10:38→21:19)
[2018-10-26] MEDS: ZESTRIL PO SCH (10:38)
[2018-10-26] MEDS: SOLU-Medrol IV SCH (10:38)
[2018-10-26] MEDS: BABY ASPIRIN PO SCH (10:38)
--- NOTE | 2018-10-26 11:15 | Cat Scan Report ---
PROCEDURE: CT ANGIO ABD/FEMORAL ABD AORTA TECHNIQUE: Axial images obtained from the abdomen and pelvis through the lower extremities with CTA protocol. Multiplanar reconstructions also obtained. Comparison made to a prior examination from . HISTORY: critical limb ischemia LLE COMPARISONS: October 24 FINDINGS: The abdominal aorta shows normal caliber with no evidence of aneurysmal dilatation. The celiac axis, superior mesenteric artery and renal arteries are patent. Atherosclerotic plaque along the distal abdominal aorta with mild stenosis. Atherosclerotic plaque along the course of the common iliac arteries left greater than right with mod erate stenosis. Atherosclerotic plaque along the course of the external and internal iliac arteries b ilaterally which remain patent. Patent common femoral arteries bilaterally. 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 The left profunda femoris artery is lopez nt. There is reconstitution of the distal segment of the left superficial femoral artery from collaterals . Patent left popliteal artery. Extensive atherosclerotic plaque in the left lower leg distal to the knee with occlusion of the left anterior tibial and peroneal arteries. Right superficial femoral artery remains patent with scattered atherosclerotic plaque and moderate st enosis distally. Patent right popliteal artery with severe stenosis distally. A three-vessel runoff is seen in the right lower leg. Diffuse subcutaneous edema, nonspecific and which may reflect anasarca. Moderate volume ascites. IMPRESSION: . 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 There is reconstitution of the distal segment of the left superficial femoral artery from collaterals. Patent left popliteal artery. Extensive atherosclerotic plaque in the left lower leg distal to the knee with occlusion of the left anterior tibial and peroneal arteries. Diffuse subcutaneous edema, nonspecific and which may reflect anasarca. Moderate volume ascites. This document is electronically signed by Neno Mcmanus MD., October 26 2018 11:14:02 AM ET
--- NOTE | 2018-10-26 12:22 | Progress Note ---
Assessment and Plan - Patient Problems (1) Rapid atrial fibrillation Current Visit: Yes Status: Acute Plan to address problem: Patient has permanent atrial fibrillation, with increased ventricular response following foot surgery. Successful rate control strategy with medical therapy as outlined. We have resumed oral anticoagulation with Eliquis at lower dose, plan to increase to normal dose of 5 mg when surgical status permits. Subjective Date of service: 10/26/18 Principal diagnosis: COPD; Morbid obesity; CAD; CMOP (EF 30-35%); Persistent A- fib/flutter; PAD Interval history: Patient is comfortable, no cardiac complaints. On telemetry, there is atrial fibrillation with a well-controlled ventricular rate. Objective Vital Signs Temp Pulse Pulse Resp Resp BP BP 10/26/18 09:42 13 10/26/18 08:42 14 10/26/18 08:16 97.9 F 97 H 18 163/92 10/26/18 04:00 94 H 10/26/18 03:15 99.1 F 101 H 20 147/80 10/25/18 23:34 98.2 F 80 20 135/76 10/25/18 20:45 101 H 18 10/25/18 20:31 10/25/18 20:30 94 H 18 10/25/18 20:06 97.7 F 106 H 20 113/66 10/25/18 18:51 88 10/25/18 17:39 97.5 F L 99 H 18 129/68 10/25/18 16:00 84 10/25/18 15:18 20 10/25/18 15:08 96 H 10/25/18 13:30 104 H 18 10/25/18 13:20 99 H 18 Pulse Ox 10/26/18 09:42 10/26/18 08:42 10/26/18 08:16 96 10/26/18 04:00 10/26/18 03:15 94 10/25/18 23:34 96 10/25/18 20:45 10/25/18 20:31 96 10/25/18 20:30 10/25/18 20:06 98 10/25/18 18:51 10/25/18 17:39 96 10/25/18 16:00 10/25/18 15:18 10/25/18 15:08 10/25/18 13:30 10/25/18 13:20 - Physical Examination General: No Apparent Distress, Other (morbidly obese) HEENT: Positive: PERRL Neck: Positive: trachea midline Cardiac: Positive: irregularly irregular Lungs: Positive: Decreased Breath Sounds Neuro: Positive: Grossly Intact Abdomen: Positive: Soft Skin: Positive: Clear Extremities: Absent: edema - Allied health notes Allied health notes reviewed: nursing
--- NOTE | 2018-10-26 13:52 | Progress Note ---
Assessment and Plan 58 year old female with PVD, DM and nonhealing lower extremity wounds. CTA demonstrates PVD of both lower extremities, left worse than right. Iliac disease is stenotic disease. Left SFA essentially complete occlusion. Plan for left revascularization either through femoral approach or combined radial and pedal approach. Given contrast bolus loads for CTA, plan to delay case until saturday. Subjective Date of service: 10/26/18 Principal diagnosis: COPD; Morbid obesity; CAD; CMOP (EF 30-35%); Persistent A- fib/flutter; PAD Interval history: Patient crying when talking with her, again. Nonhealing wounds on both feet. Objective - Constitutional Vitals: Vital Signs - 12hr 10/26/18 10/26/18 10/26/18 03:15 04:00 08:16 Temperature 99.1 F 97.9 F Pulse Rate 101 H 94 H 97 H Respiratory 20 18 Rate Blood Pressure 147/80 163/92 O2 Sat by Pulse 94 96 Oximetry 10/26/18 10/26/18 10/26/18 08:42 09:42 10:00 Temperature Pulse Rate Respiratory 14 13 Rate Blood Pressure O2 Sat by Pulse 98 Oximetry 10/26/18 10/26/18 10/26/18 12:00 12:23 13:43 Temperature 98.0 F Pulse Rate 78 99 H Respiratory 20 14 Rate Blood Pressure 143/81 O2 Sat by Pulse 97 Oximetry General appearance: Present: no acute distress - EENT Eyes: EOM intact ENT: hearing intact - Respiratory Respiratory effort: normal Extremities: abnormal (wounds both feet, nonhealing ) - Psychiatric Psychiatric: cooperative - Labs CBC & Chem 7: 10/25/18 05:32 10/25/18 05:32 Labs: Abnormal lab results 10/25/18 10/25/18 10/26/18 Range/Units 18:48 20:57 07:59 POC Glucose 384 H 264 H 270 H (70-105) 10/26/18 Range/Units 12:26 POC Glucose 197 H (70-105) Medications & Allergies - Medications Allergies/Adverse Reactions: Allergies Penicillins Allergy (Verified 04/03/18 12:43) Itching Home Medications: Home Medications Medication Instructions Recorded Confirmed Last Taken Type Aspirin [Aspirin BABY CHEW TAB] 81 mg PO DAILY #100 tab.chew 09/07/18 10/16/18 Unknown Rx AtorvaSTATin [Lipitor] 40 mg PO QHS #30 tablet 09/07/18 10/16/18 Unknown Rx Gabapentin [Neurontin] 300 mg PO TID #90 capsule 09/07/18 10/16/18 Unknown Rx Insulin Glargine [Lantus VIAL] 20 units SUB-Q QHS #1 vial 09/07/18 10/16/18 Unknown Rx Ipratropium/Albuterol Sulfate 1 ampul IH QIDRT #120 ampul.neb 09/07/18 10/16/18 Unknown Rx [DUONEB *Not for PRN Use*] Lispro Insulin [Humalog] 5 unit SUB-Q ACHS #5 units 09/07/18 10/16/18 Unknown Rx Furosemide [Lasix TAB] 40 mg PO BID #60 tablet 10/08/18 10/16/18 Unknown Rx LORazepam [Ativan] 1 mg PO Q4H PRN #14 tablet 10/08/18 10/16/18 Unknown Rx oxyCODONE /ACETAMINOPHEN [Percocet 2 tab PO Q6H PRN #20 tablet 10/08/18 10/16/18 Unknown Rx 5/325 mg] Lisinopril [Prinivil] 2.5 mg PO QDAY 10/16/18 10/16/18 Unknown History Active Medications: Generic Name Dose Route Start Last Admin Trade Name Freq PRN Reason Stop Dose Admin Acetaminophen/Hydrocodone Bitart 1 each 10/19/18 10:01 10/26/18 08:42 [place] 5/325 PO 1 each Q6H PRN Administration Pain, Moderate (4-6) Albuterol/Ipratropium 1 ampul 10/23/18 20:00 10/26/18 07:45 Duoneb *Not For Prn Use* IH 1 ampul Q6HRT LUZ Administration Apixaban 2.5 mg 10/25/18 12:00 10/26/18 10:38 Eliquis PO 2.5 mg Q12HR LUZ Administration Protocol Aspirin 81 mg 10/17/18 10:00 10/26/18 10:38 Baby Aspirin PO 81 mg DAILY LUZ Administration Atorvastatin Calcium 40 mg 10/16/18 22:00 10/25/18 21:31 Lipitor PO 40 mg QHS LUZ Administration Digoxin 0.25 mg 10/21/18 17:00 10/25/18 18:51 Lanoxin PO 0.25 mg DAILY@1700 LUZ Administration Furosemide 40 mg 10/17/18 06:00 10/26/18 05:09 Lasix IV Not Given 0600,1800 [facility] Gabapentin 300 mg 10/16/18 20:00 10/26/18 13:45 Neurontin PO 300 mg TID LUZ Administration Insulin Glargine 20 units 10/16/18 22:00 10/25/18 21:29 Lantus SUB-Q 20 units QHS LUZ Administration Insulin Human Lispro 5 unit 10/16/18 22:00 10/26/18 13:44 Humalog SUB-Q 5 unit ACHS LUZ Administration Insulin Human Lispro 0 unit 10/19/18 11:30 10/26/18 13:44 Humalog SUB-Q 2 unit ACHS LUZ Administration Protocol Lisinopril 2.5 mg 10/17/18 10:00 10/26/18 10:38 Zestril PO 2.5 mg QDAY LUZ Administration Lorazepam 1 mg 10/16/18 18:49 10/26/18 10:37 Ativan PO 1 mg Q4H PRN Administration Anxiety Methylprednisolone Sodium Succinate 40 mg 10/16/18 22:00 10/26/18 10:38 Solu-Medrol IV 40 mg Q12H LUZ Administration Metoprolol Tartrate 2.5 mg 10/20/18 16:37 Lopressor IV Q6HR PRN Tachyarrhythmias Metoprolol Tartrate 50 mg 10/21/18 14:00 10/26/18 13:44 Lopressor PO 50 mg Q8HR LUZ Administration Morphine Sulfate 2 mg 10/20/18 08:59 10/26/18 13:43 Morphine IV 2 mg Q6H PRN Administration Pain , Severe (7-10) Pseudoephedrine/Acetam/Chlorphenir 10 ml 10/21/18 15:19 10/26/18 10:37 Robitussin Ac PO 10 ml Q6H PRN Administration Cough Sodium Hypochlorite 1 applic 10/22/18 11:00 10/25/18 21:33 Dakin's Half Strength TP 1 applicator BID LUZ Administration Zolpidem Tartrate 5 mg 10/16/18 20:12 10/25/18 21:31 Ambien PO 5 mg QHS PRN Administration Sleep
--- NOTE | 2018-10-26 14:41 | Progress Note ---
Assessment and Plan h/o COPD Tobacco use disorder Morbid obesity Coronary artery disease s/p coronary bypass in 2013, Ischemic cardiomyopathy LVEF 30-35% Persistent atrial flutter fibrillation Peripheral arterial disease, Foot ulcers s/p debridement - No absolute pulmonary complication to hyperbaric oxygen therapy acutely; H/o COPD but not active and no Pneumothorax - continue schedule Brovana and Pulmicort for COPD - change duonebs to prn - continue solumedrol at 40 mg IV qd - continue anticoagulation while monitoring H&H - Smoking cessation counselling done prior and at each visit - Needs out patient sleep study - continue supplemental oxygen t keep O2 sat>90% - Analgesia, limit narcotics - Tight glycemic control, to help promote wound healing (BG 140 - 180 mg/dl) - PT/OT/mobility as tolerated - Cardioprotective measures - Chronic home medications - Weight loss and life style modifications - Continue supportive care - Monitor hyponatremia - contact isolation ... re-evaluate in am & prn Subjective Date of service: 10/26/18 Principal diagnosis: COPD; Morbid obesity; CAD; CMOP (EF 30-35%); Persistent A- fib/flutter; PAD Interval history: Patient is seen today for: COPD; Morbid obesity; Coronary artery disease s/p coronary bypass in 2013; Ischemic cardiomyopathy LVEF 30-35%; Persistent atrial flutter fibrillation; Peripheral arterial disease; Foot ulcers s/p debridement Seen and examined at bedside; 24-hour events reviewed; nursing and respiratory care staff consulted; no adverse overnight events reported to me; tentatively to begin hyperbaric oxygen therapy; No N/V/F/C; denies acute chest pains; + cough no hemoptsysis Objective Vital Signs - 12hr 10/26/18 10/26/18 10/26/18 03:15 04:00 07:45 Temperature 99.1 F Pulse Rate 101 H 94 H Pulse Rate [ 92 H Anterior Bilateral Throughout] Respiratory 20 Rate Respiratory 20 Rate [Anterior Bilateral Throughout] Blood Pressure 147/80 O2 Sat by Pulse 94 Oximetry 10/26/18 10/26/18 10/26/18 07:55 08:16 08:42 Temperature 97.9 F Pulse Rate 97 H Pulse Rate [ 99 H Anterior Bilateral Throughout] Respiratory 18 14 Rate Respiratory 20 Rate [Anterior Bilateral Throughout] Blood Pressure 163/92 O2 Sat by Pulse 96 Oximetry 10/26/18 10/26/18 10/26/18 09:42 10:00 12:00 Temperature Pulse Rate 78 Pulse Rate [ Anterior Bilateral Throughout] Respiratory 13 Rate Respiratory Rate [Anterior Bilateral Throughout] Blood Pressure O2 Sat by Pulse 98 Oximetry 10/26/18 10/26/18 10/26/18 12:23 13:43 13:56 Temperature 98.0 F Pulse Rate 99 H Pulse Rate [ 107 H Anterior Bilateral Throughout] Respiratory 20 14 Rate Respiratory 20 Rate [Anterior Bilateral Throughout] Blood Pressure 143/81 O2 Sat by Pulse 97 Oximetry 10/26/18 14:06 Temperature Pulse Rate Pulse Rate [ 112 H Anterior Bilateral Throughout] Respiratory Rate Respiratory 20 Rate [Anterior Bilateral Throughout] Blood Pressure O2 Sat by Pulse Oximetry Constitutional: alert, other (elderly obese CF normocephalic and with mildly increased resp effort at rest) Eyes: non-icteric ENT: oropharynx moist, other (Mallampati 3) Neck: supple, no JVD, other (large neck circumference) Effort: mildly labored Ascultation: Bilateral: diminished breath sounds, rhonchi, other (prolonged exp phase) Percussion: Bilateral: not dull Cardiovascular: regular rate and rhythm Gastrointestinal: normoactive bowel sounds, soft, non-tender, non-distended Integumentary: rash Extremities: no cyanosis, pink and warm, edema, other (bilateral dressings) Neurologic: normal mental status, non-focal exam, pupils equal and round, CN II- XII normal, motor strength normal and Psychiatric: other (suspect schizoaffective / psych disorder) CBC and BMP: 10/30/18 05:58 10/30/18 05:58 ABG, PT/INR, D-dimer: ABG POC ABG pH 7.418 (7.35-7.45) 10/22/18 13:46 POC ABG pCO2 39.0 (35-45) 10/22/18 13:46 POC ABG pO2 80 (80-105) 10/22/18 13:46 POC ABG HCO3 25.2 (22-26 mml/L) 10/22/18 13:46 POC ABG Total CO2 26 (23-27mmol/L) 10/22/18 13:46 POC ABG O2 Sat 96 10/22/18 13:46 PT/INR, D-dimer PT 16.2 Sec. (12.2-14.9) H 10/25/18 05:32 INR 1.22 (0.87-1.13) H 10/25/18 05:32 Abnormal lab findings: Abnormal Labs 10/16/18 10/16/18 10/16/18 14:39 14:39 14:39 WBC 16.6 H MCH 26 L RDW 21.6 H Lymph % (Auto) 10.6 L Lymph # [place] # 0.9 H Seg Neutrophils % 82.9 H Seg Neuts % (Manual) Lymphocytes % (Manual) Nucleated RBC % Seg Neutrophils # 13.8 H Seg Neutrophils # Man Lymphocytes # (Manual) PT 16.6 H INR 1.26 H Sodium Potassium Chloride 107.9 H Carbon Dioxide 21 L BUN Creatinine 0.5 L Glucose 182 H POC Glucose Calcium 7.6 L NT-Pro-B Natriuret Pep U Epithel Cells (Auto) Digoxin 10/16/18 10/16/18 10/16/18 14:39 17:55 19:30 WBC MCH RDW Lymph % (Auto) Lymph # [place] # Seg Neutrophils % Seg Neuts % (Manual) Lymphocytes % (Manual) Nucleated RBC % Seg Neutrophils # Seg Neutrophils # Man Lymphocytes # (Manual) PT INR Sodium Potassium Chloride Carbon Dioxide BUN Creatinine Glucose POC Glucose 164 H Calcium NT-Pro-B Natriuret Pep 4638 H U Epithel Cells (Auto) 15.0 H Digoxin 10/16/18 10/17/18 10/17/18 21:59 05:57 05:57 WBC 17.5 H MCH 25 L RDW 22.3 H Lymph % (Auto) Lymph # [place] # Seg Neutrophils % Seg Neuts % (Manual) 91.0 H Lymphocytes % (Manual) 7.0 L Nucleated RBC % 1.0 H Seg Neutrophils # Seg Neutrophils # Man 15.9 H Lymphocytes # (Manual) PT INR Sodium Potassium Chloride Carbon Dioxide BUN 18 H Creatinine 0.6 L Glucose 197 H POC Glucose 174 H Calcium 7.8 L NT-Pro-B Natriuret Pep U Epithel Cells (Auto) Digoxin 10/17/18 10/17/18 10/17/18 07:49 12:03 16:59 WBC MCH RDW Lymph % (Auto) Lymph # [place] # Seg Neutrophils % Seg Neuts % (Manual) Lymphocytes % (Manual) Nucleated RBC % Seg Neutrophils # Seg Neutrophils # Man Lymphocytes # (Manual) PT INR Sodium Potassium Chloride Carbon Dioxide BUN Creatinine Glucose POC Glucose 195 H 308 H 307 H Calcium NT-Pro-B Natriuret Pep U Epithel Cells (Auto) Digoxin 10/17/18 10/18/18 10/18/18 21:30 08:20 11:57 WBC MCH RDW Lymph % (Auto) Lymph # [place] # Seg Neutrophils % Seg Neuts % (Manual) Lymphocytes % (Manual) Nucleated RBC % Seg Neutrophils # Seg Neutrophils # Man Lymphocytes # (Manual) PT INR Sodium Potassium Chloride Carbon Dioxide BUN Creatinine Glucose POC Glucose 344 H 322 H 302 H Calcium NT-Pro-B Natriuret Pep U Epithel Cells (Auto) Digoxin 10/18/18 10/18/18 10/18/18 17:26 18:00 22:14 WBC MCH RDW Lymph % (Auto) Lymph # [place] # Seg Neutrophils % Seg Neuts % (Manual) Lymphocytes % (Manual) Nucleated RBC % Seg Neutrophils # Seg Neutrophils # Man Lymphocytes # (Manual) PT INR Sodium Potassium Chloride Carbon Dioxide BUN Creatinine Glucose POC Glucose 269 H 290 H 340 H Calcium NT-Pro-B Natriuret Pep U Epithel Cells (Auto) Digoxin 10/19/18 10/19/18 10/19/18 07:38 11:46 17:31 WBC MCH RDW Lymph % (Auto) Lymph # [place] # Seg Neutrophils % Seg Neuts % (Manual) Lymphocytes % (Manual) Nucleated RBC % Seg Neutrophils # Seg Neutrophils # Man Lymphocytes # (Manual) PT INR Sodium Potassium Chloride Carbon Dioxide BUN Creatinine Glucose POC Glucose 304 H 234 H 319 H Calcium NT-Pro-B Natriuret Pep U Epithel Cells (Auto) Digoxin 10/19/18 10/20/18 10/20/18 21:22 06:00 06:00 WBC 21.5 H MCH 25 L RDW 21.4 H Lymph % (Auto) Lymph # [place] # Seg Neutrophils % Seg Neuts % (Manual) 98.0 H Lymphocytes % (Manual) 1.0 L Nucleated RBC % Seg Neutrophils # Seg Neutrophils # Man 21.1 H Lymphocytes # (Manual) 0.2 L PT INR Sodium Potassium Chloride Carbon Dioxide BUN 26 H Creatinine 0.4 L Glucose 177 H POC Glucose 330 H Calcium 8.2 L NT-Pro-B Natriuret Pep U Epithel Cells (Auto) Digoxin 10/20/18 10/20/18 10/21/18 11:41 15:16 08:23 WBC MCH RDW Lymph % (Auto) Lymph # [place] # Seg Neutrophils % Seg Neuts % (Manual) Lymphocytes % (Manual) Nucleated RBC % Seg Neutrophils # Seg Neutrophils # Man Lymphocytes # (Manual) PT INR Sodium Potassium Chloride Carbon Dioxide BUN Creatinine Glucose POC Glucose 178 H 178 H 237 H Calcium NT-Pro-B Natriuret Pep U Epithel Cells (Auto) Digoxin 10/21/18 10/21/18 10/21/18 12:02 21:04 23:27 WBC 11.9 H MCH 25 L RDW 21.4 H Lymph % (Auto) 5.9 L Lymph # 0.7 L [place] # Seg Neutrophils % 89.2 H Seg Neuts % (Manual) Lymphocytes % (Manual) Nucleated RBC % Seg Neutrophils # 10.6 H Seg Neutrophils # Man Lymphocytes # (Manual) PT INR Sodium Potassium Chloride Carbon Dioxide BUN Creatinine Glucose POC Glucose 204 H 188 H Calcium NT-Pro-B Natriuret Pep U Epithel Cells (Auto) Digoxin 10/22/18 10/22/18 10/22/18 08:04 09:44 09:44 WBC 15.0 H MCH 26 L RDW 21.2 H Lymph % (Auto) Lymph # [place] # Seg Neutrophils % Seg Neuts % (Manual) 92.0 H Lymphocytes % (Manual) 6.0 L Nucleated RBC % Seg Neutrophils # Seg Neutrophils # Man 13.8 H Lymphocytes # (Manual) 0.9 L PT INR Sodium 136 L Potassium Chloride 96.4 L Carbon Dioxide BUN 42 H Creatinine Glucose 251 H POC Glucose 242 H Calcium 7.9 L NT-Pro-B Natriuret Pep U Epithel Cells (Auto) Digoxin 10/22/18 10/22/18 10/22/18 12:30 15:26 18:06 WBC MCH RDW Lymph % (Auto) Lymph # [place] # Seg Neutrophils % Seg Neuts % (Manual) Lymphocytes % (Manual) Nucleated RBC % Seg Neutrophils # Seg Neutrophils # Man Lymphocytes # (Manual) PT INR Sodium 133 L Potassium 5.8 H D Chloride 95.3 L Carbon Dioxide BUN 41 H Creatinine 0.6 L Glucose 322 H POC Glucose 208 H 218 H Calcium 8.0 L NT-Pro-B Natriuret Pep U Epithel Cells (Auto) Digoxin 10/23/18 10/23/18 10/23/18 07:32 10:16 12:25 WBC MCH RDW Lymph % (Auto) Lymph # [place] # Seg Neutrophils % Seg Neuts % (Manual) Lymphocytes % (Manual) Nucleated RBC % Seg Neutrophils # Seg Neutrophils # Man Lymphocytes # (Manual) PT INR Sodium 146 H D Potassium 5.7 H Chloride 117.7 H Carbon Dioxide BUN 39 H Creatinine 0.5 L Glucose 299 H POC Glucose 125 H 204 H Calcium 7.9 L NT-Pro-B Natriuret Pep U Epithel Cells (Auto) Digoxin 10/23/18 10/23/18 10/24/18 16:00 20:59 08:47 WBC MCH RDW Lymph % (Auto) Lymph # [place] # Seg Neutrophils % Seg Neuts % (Manual) Lymphocytes % (Manual) Nucleated RBC % Seg Neutrophils # Seg Neutrophils # Man Lymphocytes # (Manual) PT INR Sodium Potassium Chloride Carbon Dioxide BUN Creatinine Glucose POC Glucose 277 H 401 H 327 H Calcium NT-Pro-B Natriuret Pep U Epithel Cells (Auto) Digoxin 10/24/18 10/24/18 10/24/18 09:45 09:45 12:31 WBC MCH RDW Lymph % (Auto) Lymph # [place] # Seg Neutrophils % Seg Neuts % (Manual) Lymphocytes % (Manual) Nucleated RBC % Seg Neutrophils # Seg Neutrophils # Man Lymphocytes # (Manual) PT INR Sodium 134 L D Potassium Chloride 93.3 L Carbon Dioxide BUN 30 H Creatinine 0.5 L Glucose 391 H POC Glucose 219 H Calcium 8.0 L NT-Pro-B Natriuret Pep U Epithel Cells (Auto) Digoxin 0.7 L 10/24/18 10/24/18 10/25/18 16:37 21:14 05:32 WBC MCH 25 L RDW 21.2 H Lymph % (Auto) Lymph # [place] # Seg Neutrophils % Seg Neuts % (Manual) 84.0 H Lymphocytes % (Manual) 6.0 L Nucleated RBC % Seg Neutrophils # Seg Neutrophils # Man Lymphocytes # (Manual) 0.5 L PT INR Sodium Potassium Chloride Carbon Dioxide BUN Creatinine Glucose POC Glucose 148 H 355 H Calcium NT-Pro-B Natriuret Pep U Epithel Cells (Auto) Digoxin 10/25/18 10/25/18 10/25/18 05:32 05:32 07:54 WBC MCH RDW Lymph % (Auto) Lymph # [place] # Seg Neutrophils % Seg Neuts % (Manual) Lymphocytes % (Manual) Nucleated RBC % Seg Neutrophils # Seg Neutrophils # Man Lymphocytes # (Manual) PT 16.2 H INR 1.22 H Sodium Potassium Chloride 96.5 L Carbon Dioxide 32 H D BUN 24 H Creatinine 0.6 L Glucose 264 H POC Glucose 233 H Calcium 8.3 L NT-Pro-B Natriuret Pep U Epithel Cells (Auto) Digoxin 10/25/18 10/25/18 10/25/18 13:05 18:48 20:57 WBC MCH RDW Lymph % (Auto) Lymph # [place] # Seg Neutrophils % Seg Neuts % (Manual) Lymphocytes % (Manual) Nucleated RBC % Seg Neutrophils # Seg Neutrophils # Man Lymphocytes # (Manual) PT INR Sodium Potassium Chloride Carbon Dioxide BUN Creatinine Glucose POC Glucose 215 H 384 H 264 H Calcium NT-Pro-B Natriuret Pep U Epithel Cells (Auto) Digoxin 10/26/18 10/26/18 07:59 12:26 WBC MCH RDW Lymph % (Auto) Lymph # [place] # Seg Neutrophils % Seg Neuts % (Manual) Lymphocytes % (Manual) Nucleated RBC % Seg Neutrophils # Seg Neutrophils # Man Lymphocytes # (Manual) PT INR Sodium Potassium Chloride Carbon Dioxide BUN Creatinine Glucose POC Glucose 270 H 197 H Calcium NT-Pro-B Natriuret Pep U Epithel Cells (Auto) Digoxin Allied health notes reviewed: nursing
[2018-10-26] MEDS ORDERED: PROVENTIL IH PRN (14:53)
[2018-10-26] MEDS: LANOXIN PO SCH (17:01)
[2018-10-26] MEDS: DAKIN'S HALF STRENGTH TP SCH ×2 (18:42→21:28)
[2018-10-26] MEDS: PULMICORT IH SCH (20:55)
[2018-10-26] MEDS: BROVANA NEBU IH SCH (20:55)
--- NOTE | 2018-10-26 20:56 | Progress Note ---
Assessment and Plan - Patient Problems (1) Chest pain Current Visit: Yes Status: Resolved Plan to address problem: resolved. (2) CHF (congestive heart failure) Current Visit: Yes Status: Chronic Qualifiers: Plan to address problem: Diuretics. (3) CAD (coronary artery disease) of artery bypass graft Current Visit: No Status: Chronic Plan to address problem: supportive., follow cardiology. (4) Cellulitis Current Visit: No Status: Chronic Qualifiers: Site of cellulitis: extremity Site of cellulitis of extremity: lower extremity Laterality: left Qualified Code(s): L03.116 - Cellulitis of left lower limb Plan to address problem: wound care. post surgery today. follow vascular. (5) Diabetes Current Visit: No Status: Chronic Plan to address problem: control BG. Gross non compliant at home with diet. (6) Peripheral vascular disease due to secondary diabetes Current Visit: Yes Status: Acute Plan to address problem: follow vascular, CT angio, tight control of BG. done, see notes. Subjective Date of service: 10/26/18 Principal diagnosis: COPD; Morbid obesity; CAD; CMOP (EF 30-35%); Persistent A- fib/flutter; PAD Interval history: Patient is seen/examined, resting in bed,, records reviewed, case discussed, put on mild pain control.Wbc elevated due to steroids. Patient seen/examined, resting in bed, records reviewed, Will start working on d/c plans. Patient seen/examined, resting in bed, I have read the wound surgeon notes, plans for procedure tomorrow. Once stable, post surgery, will d/c home. hyperbaric therapy to be arranged out patient, once cardio/pulm clearance done, and patient in compliant with her care, ie diet, BG, smoking, etc. Will put on some pain meds. Patient seen/examined, resting in bed post wound debridment, after which she had Cjck, cardiology now on the case, and will clear for ba therapy.amparo, will also get PULm consult for the same reason. Patient seen/examined, resting in bed, records reviewed, case d/w patient. i hav e d/w pulm service.I am awaiting for both cardiology/cardiology to clear her for hyperbaric therapy., after which patient will be d/c once stable. Patient seen/examined, resting in bed, labs reviewed, and addressed.Notes reviewed. will d/c if no procedure will be done. Patient seen/resting in bed, late entry for 10/24/18, service. Consultants notes reviewed, well come vascular procedure.will recheck new labs before any procedure. await CT angio. Patient seen/examined, resting in bed, records/notes reviewed, will follow the CTA with run off tomorrow. Patient seen, resting in bed, s/p CTA, finding reviewed, Vascular surgery planed for Saturday. Objective - Constitutional Vitals: Vital Signs - 12hr 10/26/18 10/26/18 10/26/18 09:42 10:00 12:00 Temperature Pulse Rate 78 Pulse Rate [ Anterior Bilateral Throughout] Respiratory 13 Rate Respiratory Rate [Anterior Bilateral Throughout] Blood Pressure Blood Pressure [Left] O2 Sat by Pulse 98 Oximetry 10/26/18 10/26/18 10/26/18 12:23 13:43 13:56 Temperature 98.0 F Pulse Rate 99 H Pulse Rate [ 107 H Anterior Bilateral Throughout] Respiratory 20 14 Rate Respiratory 20 Rate [Anterior Bilateral Throughout] Blood Pressure 143/81 Blood Pressure [Left] O2 Sat by Pulse 97 Oximetry 10/26/18 10/26/18 10/26/18 14:06 14:13 15:19 Temperature Pulse Rate 87 60 Pulse Rate [ 112 H Anterior Bilateral Throughout] Respiratory 14 Rate Respiratory 20 Rate [Anterior Bilateral Throughout] Blood Pressure 120/41 135/76 Blood Pressure [Left] O2 Sat by Pulse 96 99 Oximetry 10/26/18 10/26/18 10/26/18 16:22 17:01 18:01 Temperature 98.0 F Pulse Rate 100 H 80 Pulse Rate [ Anterior Bilateral Throughout] Respiratory 18 14 14 Rate Respiratory Rate [Anterior Bilateral Throughout] Blood Pressure 175/106 Blood Pressure [Left] O2 Sat by Pulse 93 Oximetry 10/26/18 10/26/18 19:10 20:16 Temperature 98.1 F Pulse Rate 101 H Pulse Rate [ Anterior Bilateral Throughout] Respiratory 20 Rate Respiratory Rate [Anterior Bilateral Throughout] Blood Pressure 125/64 Blood Pressure 128/73 [Left] O2 Sat by Pulse 91 Oximetry General appearance: Present: mild distress, well-nourished - EENT Eyes: PERRL, EOM intact ENT: hearing intact, clear oral mucosa Ears: bilateral: normal - Neck Neck: supple, normal ROM - Respiratory Respiratory effort: normal Respiratory: bilateral: CTA - Breasts Breasts: deferred - Cardiovascular Rhythm: regular Heart Sounds: Present: S1 & S2. Absent: gallop, rub Extremities: pulses intact, No edema, normal color, Full ROM - Gastrointestinal General gastrointestinal: Present: soft, non-tender, non-distended, normal bowel sounds Rectal Exam: deferred - Genitourinary Female genitourinary: deferred - Integumentary Integumentary: clear, warm, dry - Musculoskeletal Musculoskeletal: 1, strength equal bilaterally - Neurologic Neurologic: moves all extremities - Psychiatric Psychiatric: memory intact, appropriate mood/affect, intact judgment & insight - Labs CBC & Chem 7: 10/25/18 05:32 10/25/18 05:32 Labs: Abnormal lab results 10/25/18 10/25/18 10/26/18 Range/Units 18:48 20:57 07:59 POC Glucose 384 H 264 H 270 H (70-105) 10/26/18 10/26/18 Range/Units 12:26 16:24 POC Glucose 197 H 243 H (70-105) Medications & Allergies - Medications Allergies/Adverse Reactions: Allergies Penicillins Allergy (Verified 04/03/18 12:43) Itching Home Medications: Home Medications Medication Instructions Recorded Confirmed Last Taken Type Aspirin [Aspirin BABY CHEW TAB] 81 mg PO DAILY #100 tab.chew 09/07/18 10/16/18 Unknown Rx AtorvaSTATin [Lipitor] 40 mg PO QHS #30 tablet 09/07/18 10/16/18 Unknown Rx Gabapentin [Neurontin] 300 mg PO TID #90 capsule 09/07/18 10/16/18 Unknown Rx Insulin Glargine [Lantus VIAL] 20 units SUB-Q QHS #1 vial 09/07/18 10/16/18 Unknown Rx Ipratropium/Albuterol Sulfate 1 ampul IH QIDRT #120 ampul.neb 09/07/18 10/16/18 Unknown Rx [DUONEB *Not for PRN Use*] Lispro Insulin [Humalog] 5 unit SUB-Q ACHS #5 units 09/07/18 10/16/18 Unknown Rx Furosemide [Lasix TAB] 40 mg PO BID #60 tablet 10/08/18 10/16/18 Unknown Rx LORazepam [Ativan] 1 mg PO Q4H PRN #14 tablet 10/08/18 10/16/18 Unknown Rx oxyCODONE /ACETAMINOPHEN [Percocet 2 tab PO Q6H PRN #20 tablet 10/08/18 10/16/18 Unknown Rx 5/325 mg] Lisinopril [Prinivil] 2.5 mg PO QDAY 10/16/18 10/16/18 Unknown History Active Medications: Generic Name Dose Route Start Last Admin Trade Name Freq PRN Reason Stop Dose Admin Acetaminophen/Hydrocodone Bitart 1 each 10/19/18 10:01 10/26/18 17:01 [place] 5/325 PO 1 each Q6H PRN Administration Pain, Moderate (4-6) Albuterol 2.5 mg 10/26/18 14:53 Proventil IH Q4HRT PRN Shortness Of Breath Apixaban 2.5 mg 10/25/18 12:00 10/26/18 10:38 Eliquis PO 2.5 mg Q12HR LUZ Administration Protocol Arformoterol Tartrate 15 mcg 10/26/18 20:00 Brovana Nebu IH Q12HRT LUZ Aspirin 81 mg 10/17/18 10:00 10/26/18 10:38 Baby Aspirin PO 81 mg DAILY LUZ Administration Atorvastatin Calcium 40 mg 10/16/18 22:00 10/25/18 21:31 Lipitor PO 40 mg QHS LUZ Administration Budesonide 0.5 mg 10/26/18 20:00 Pulmicort IH Q12HRT LUZ Digoxin 0.25 mg 10/21/18 17:00 10/26/18 17:01 Lanoxin PO 0.25 mg DAILY@1700 LUZ Administration Furosemide 40 mg 10/17/18 06:00 10/26/18 17:02 Lasix IV 40 mg 0600,1800 LUZ Administration Gabapentin 300 mg 10/16/18 20:00 10/26/18 13:45 Neurontin PO 300 mg TID LUZ Administration Insulin Glargine 20 units 10/16/18 22:00 10/25/18 21:29 Lantus SUB-Q 20 units QHS LUZ Administration Insulin Human Lispro 5 unit 10/16/18 22:00 10/26/18 17:04 Humalog SUB-Q 5 unit ACHS LUZ Administration Insulin Human Lispro 0 unit 10/19/18 11:30 10/26/18 17:19 Humalog SUB-Q 3 unit ACHS LUZ Administration Protocol Lisinopril 2.5 mg 10/17/18 10:00 10/26/18 10:38 Zestril PO 2.5 mg QDAY LUZ Administration Lorazepam 1 mg 10/16/18 18:49 10/26/18 10:37 Ativan PO 1 mg Q4H PRN Administration Anxiety Methylprednisolone Sodium Succinate 40 mg 10/27/18 10:00 Solu-Medrol IV DAILY LUZ Metoprolol Tartrate 2.5 mg 10/20/18 16:37 Lopressor IV Q6HR PRN Tachyarrhythmias Metoprolol Tartrate 50 mg 10/21/18 14:00 10/26/18 13:44 Lopressor PO 50 mg Q8HR LUZ Administration Morphine Sulfate 2 mg 10/20/18 08:59 10/26/18 13:43 Morphine IV 2 mg Q6H PRN Administration Pain , Severe (7-10) Pseudoephedrine/Acetam/Chlorphenir 10 ml 10/21/18 15:19 10/26/18 10:37 Robitussin Ac PO 10 ml Q6H PRN Administration Cough Sodium Hypochlorite 1 applic 10/22/18 11:00 10/26/18 18:42 Dakin's Half Strength TP Not Given BID LUZ Zolpidem Tartrate 5 mg 10/16/18 20:12 10/25/18 21:31 Ambien PO 5 mg QHS PRN Administration Sleep
[2018-10-26] MEDS: AMBIEN PO PRN (21:19)
[2018-10-26] MEDS: LANTUS SUB-Q SCH (21:19)
[2018-10-27] MEDS: ATIVAN PO PRN (00:34)
[2018-10-27] MEDS: NORCO 5/325 PO PRN ×3 (00:34→17:28)
[2018-10-27] MEDS: MORPHINE IV PRN ×3 (04:32→21:42)
[2018-10-27] MEDS: LASIX IV SCH ×2 (06:59→17:29)
[2018-10-27] MEDS: LOPRESSOR PO SCH ×3 (07:00→21:42)
[2018-10-27] MEDS: ROBITUSSIN AC PO PRN (07:00)
[2018-10-27 07:44] LABS: BUN/Creatinine Ratio 68; Blood Urea Nitrogen 34 mg/dL (7-17); Calcium 7.6 mg/dL (8.4-10.2); Hemolysis Index 10
[2018-10-27] MEDS: PULMICORT IH SCH ×2 (08:51→20:42)
[2018-10-27] MEDS: BROVANA NEBU IH SCH ×2 (08:51→20:42)
--- NOTE | 2018-10-27 09:59 | Progress Note ---
Assessment and Plan s/p left foot debridement Permanent Atrial fib/flutter on metoprolol and digoxin on low dose eliquis for oral anticoagulation therapy. Ischemic cardiomyopathy with EF 30-35% CAD s/p 3v CABG in 2013 Cor [facility] COPD Severe pulmonary hypertension Tobacco abuse Htn DM PAD s/p TMA Chronic non-compliance with medical therapy and medical follow up Recommend: Continue medical therapy for permanent atrial fibrillation, ischemic cardiomyopathy and coronary artery disease. Patient is on low dose oral anticoagulation with Eliquis with plans to increase to normal dose of 5 mg when surgical status permits. Subjective Date of service: 10/27/18 Principal diagnosis: COPD; Morbid obesity; CAD; CMOP (EF 30-35%); Persistent A- fib/flutter; PAD Interval history: Patient is resting in bed comfortably. Afib with a well controlled ventricular rate on telemetry. Objective Vital Signs Temp Pulse Pulse Resp Resp BP BP 10/27/18 08:52 98.4 F 10/27/18 08:50 82 20 117/78 10/27/18 04:58 98.4 F 103 H 20 120/73 10/26/18 23:51 98.3 F 103 H 22 127/61 10/26/18 21:08 95 H 20 10/26/18 20:57 98 H 20 10/26/18 20:56 10/26/18 20:16 98.1 F 101 H 20 125/64 10/26/18 20:00 102 H 10/26/18 19:10 128/73 10/26/18 18:01 14 10/26/18 17:01 80 14 10/26/18 16:22 98.0 F 100 H 18 175/106 10/26/18 15:19 60 135/76 10/26/18 14:13 87 14 120/41 10/26/18 14:06 112 H 20 10/26/18 13:56 107 H 20 10/26/18 13:43 14 10/26/18 12:23 98.0 F 99 H 20 143/81 10/26/18 12:00 78 10/26/18 10:00 Pulse Ox 10/27/18 08:52 10/27/18 08:50 99 10/27/18 04:58 92 10/26/18 23:51 92 10/26/18 21:08 10/26/18 20:57 10/26/18 20:56 97 10/26/18 20:16 91 10/26/18 20:00 10/26/18 19:10 10/26/18 18:01 10/26/18 17:01 10/26/18 16:22 93 10/26/18 15:19 99 10/26/18 14:13 96 10/26/18 14:06 10/26/18 13:56 10/26/18 13:43 10/26/18 12:23 97 10/26/18 12:00 10/26/18 10:00 98 - Physical Examination General: No Apparent Distress, Other (morbidly obese) Cardiac: Positive: irregularly irregular Neuro: Positive: Grossly Intact - Labs and Meds Comprehensive Metabolic Panel 10/27/18 Range/Units 06:58 Sodium 145 (137-145) mmol/L Potassium 4.3 (3.6-5.0) mmol/L Chloride 101.0 (98-107) mmol/L Carbon Dioxide 32 H (22-30) mmol/L BUN 34 H (7-17) mg/dL Creatinine 0.5 L (0.7-1.2) mg/dL Glucose 96 (65-100) mg/dL Calcium 7.6 L (8.4-10.2) mg/dL - Allied health notes Allied health notes reviewed: nursing
[2018-10-27] MEDS: DAKIN'S HALF STRENGTH TP SCH ×2 (10:00→21:43)
[2018-10-27 10:38] LABS: Eosinophils # (Auto) 0.1 K/mm3 (0.0-0.4); Eosinophils % (Auto) 1.2 % (0.0-4.3); Mean Corpuscular HGB Conc 30 % (30-34); Mean Corpuscular Volume 82 fl (79-97); Monocytes # (Auto) 0.9 K/mm3 (0.0-0.8); Monocytes % (Auto) 8.4 % (0.0-7.3); Platelet Count 206 K/mm3 (140-440); Red Blood Count 4.38 M/mm3 (3.65-5.03)
[2018-10-27] MEDS: SOLU-Medrol IV SCH (10:40)
[2018-10-27] MEDS: ZESTRIL PO SCH (10:40)
[2018-10-27] MEDS: ELIQUIS PO SCH (10:41)
[2018-10-27] MEDS: NEURONTIN PO SCH ×3 (10:41→21:43)
[2018-10-27] MEDS: BABY ASPIRIN PO SCH (10:41)
[2018-10-27] MEDS: HumaLOG SUB-Q SCH ×8 (10:41→21:44)
[2018-10-27 12:41] LABS: Hematocrit 35.7 % (30.3-42.9); Hemoglobin 10.9 gm/dl (10.1-14.3); Red Cell Distribution Width 21.6 % (13.2-15.2)
--- NOTE | 2018-10-27 13:07 | Progress Note ---
Assessment and Plan - Patient Problems (1) Chronic ulcer of left foot with fat layer exposed Current Visit: Yes Status: Acute Plan to address problem: Patient is stable. s/p left foot debridement - 10/20/18 - POD#7. Pt stable. She is showing more signs of continued tissue breakdown. At this point, we will wait until revascularization is complete. After that, we will reassess her wound. She is to remain nonweightbearing on that side. We will continue with the wet to dry dressing changes for now. She can be discharged at anytime from our perspective. Once we see her in the clinic, then we will start her on dressings to help with the debridement of the wound (Medihoney, Santyl, etc). Will need cardiology and pulmonary clearance for hyperbaric therapy. I have already asked pulmonary to clarify their status. I have asked the hospitalist to contact cardiology to comment on her clearance. Please call with questions. Time=10min Subjective Date of service: 10/27/18 Patient Reports: Positive: no new complaints Objective Vital Signs - 12hr 10/27/18 10/27/18 10/27/18 04:58 08:50 08:51 Temperature 98.4 F Pulse Rate 103 H 82 Pulse Rate [ 96 H Anterior Bilateral Throughout] Respiratory 20 20 Rate Respiratory 20 Rate [Anterior Bilateral Throughout] Blood Pressure 120/73 117/78 O2 Sat by Pulse 92 99 99 Oximetry 10/27/18 10/27/18 08:52 09:01 Temperature 98.4 F Pulse Rate Pulse Rate [ 104 H Anterior Bilateral Throughout] Respiratory Rate Respiratory 20 Rate [Anterior Bilateral Throughout] Blood Pressure O2 Sat by Pulse Oximetry - General physical appearance no distress, no pain, other (remains very emotional) - Respiratory normal expansion, normal respiratory effort, other (congested cough) - Musculoskeletal other (left foot wound with more ischemic tissue. No purulent drainage. Increase injury on periphery of skin. ) - Labs 10/27/18 06:58 10/27/18 06:58 Diabetes panel 10/27/18 Range/Units 06:58 Sodium 145 (137-145) mmol/L Potassium 4.3 (3.6-5.0) mmol/L Chloride 101.0 (98-107) mmol/L Carbon Dioxide 32 H (22-30) mmol/L BUN 34 H (7-17) mg/dL Creatinine 0.5 L (0.7-1.2) mg/dL Glucose 96 (65-100) mg/dL Calcium 7.6 L (8.4-10.2) mg/dL Calcium panel 10/27/18 Range/Units 06:58 Calcium 7.6 L (8.4-10.2) mg/dL Pituitary panel 10/27/18 Range/Units 06:58 Sodium 145 (137-145) mmol/L Potassium 4.3 (3.6-5.0) mmol/L Chloride 101.0 (98-107) mmol/L Carbon Dioxide 32 H (22-30) mmol/L BUN 34 H (7-17) mg/dL Creatinine 0.5 L (0.7-1.2) mg/dL Glucose 96 (65-100) mg/dL Calcium 7.6 L (8.4-10.2) mg/dL Adrenal panel 10/27/18 Range/Units 06:58 Sodium 145 (137-145) mmol/L Potassium 4.3 (3.6-5.0) mmol/L Chloride 101.0 (98-107) mmol/L Carbon Dioxide 32 H (22-30) mmol/L BUN 34 H (7-17) mg/dL Creatinine 0.5 L (0.7-1.2) mg/dL Glucose 96 (65-100) mg/dL Calcium 7.6 L (8.4-10.2) mg/dL
[2018-10-27 15:23] LABS: Band Neutrophils # (Manual) 0.4 K/mm3; Basophils % (Manual) 0 % (0.0-1.8); Myelocytes # (Manual) 0.1 K/mm3; Total Cells Counted 100
[2018-10-27 15:24] LABS: Anisocytosis 1+; Hypochromasia 1+; Poikilocytosis 1+
[2018-10-27 15:26] LABS: Platelet Estimate Consistent w Auto
--- NOTE | 2018-10-27 17:05 | Event Note ---
Date: 10/27/18 Plan for revascularization tomorrow with Dr. Pulido with anesthesia. Discontinued Eliquis. Please do not restart Eliquis for at least 2 days after procedure. Further recommendations after procedure.
[2018-10-27] MEDS: LANOXIN PO SCH (17:29)
--- NOTE | 2018-10-27 18:23 | Progress Note ---
Assessment and Plan Patient awake. Patient is on room air. O2 saturation 96%. Patient has left foot wound debridement and wash out.Patient afebrile but has leukocytosis. Complaining non specific bodyaches. Patient is cleared for hyperbaric oxygen from pulmonary point of view. - Patient Problems (1) Chronic ulcer of left foot with fat layer exposed Current Visit: Yes Status: Acute Plan to address problem: Patient underwent left foot debridement and washout.Patient presently on Rocephan Also patient scheduled for hyperbaric oxygen treatment. (2) Rapid atrial fibrillation Current Visit: Yes Status: Acute Plan to address problem: Patient is on Metoprolol and Digoxin. Recommend Anticoagulation if no contraindications (3) CHF (congestive heart failure) Current Visit: Yes Status: Chronic Qualifiers: Plan to address problem: Management as per cardiology (4) Diabetes Current Visit: No Status: Chronic Plan to address problem: Management as per primary care. (5) Hypertension Current Visit: No Status: Acute Qualifiers: Hypertension type: essential hypertension Qualified Code(s): I10 - Essential (primary) hypertension Plan to address problem: Management as per primary care (6) COPD exacerbation Current Visit: No Status: Chronic Plan to address problem: O2 2L via nasal cannula. Albuterol/Atrovent aerosol treatment q6hrs Continue IV Solumedrol Continue Rocephan SCDs Recommend GI prophylaxis Subjective Date of service: 10/27/18 Principal diagnosis: COPD; Morbid obesity; CAD; CMOP (EF 30-35%); Persistent A- fib/flutter; PAD Interval history: Patient awake. Patient is on room air. O2 saturation 99%. Patient has left foot wound debridement and wash out.Patient afebrile but has leukocytosis. Complaining non specific bodyaches. Patient is cleared for hyperbaric oxygen from pulmonary point of view. Objective Vital Signs - 12hr 10/27/18 10/27/18 10/27/18 08:50 08:51 08:52 Temperature 98.4 F Pulse Rate 82 Pulse Rate [ 96 H Anterior Bilateral Throughout] Respiratory 20 Rate Respiratory 20 Rate [Anterior Bilateral Throughout] Blood Pressure 117/78 O2 Sat by Pulse 99 99 Oximetry 10/27/18 10/27/18 09:01 12:00 Temperature Pulse Rate 99 H Pulse Rate [ 104 H Anterior Bilateral Throughout] Respiratory Rate Respiratory 20 Rate [Anterior Bilateral Throughout] Blood Pressure O2 Sat by Pulse Oximetry Constitutional: no acute distress, alert Eyes: non-icteric ENT: oropharynx moist, other (Mallampati 3) Neck: supple, no JVD, other (large neck circumference) Effort: mildly labored Ascultation: Bilateral: wheezes (mild), rhonchi (mild), other (prolonged exp phase) Percussion: Bilateral: not dull Cardiovascular: regular rate and rhythm Gastrointestinal: normoactive bowel sounds, soft, non-tender, non-distended Integumentary: rash Extremities: no cyanosis, pink and warm, edema, other (bilateral dressings) Neurologic: normal mental status, non-focal exam, pupils equal and round, CN II- XII normal, motor strength normal and Psychiatric: other (suspect schizoaffective / psych disorder) CBC and BMP: 10/27/18 06:58 10/27/18 06:58 ABG, PT/INR, D-dimer: ABG POC ABG pH 7.418 (7.35-7.45) 10/22/18 13:46 POC ABG pCO2 39.0 (35-45) 10/22/18 13:46 POC ABG pO2 80 (80-105) 10/22/18 13:46 POC ABG HCO3 25.2 (22-26 mml/L) 10/22/18 13:46 POC ABG Total CO2 26 (23-27mmol/L) 10/22/18 13:46 POC ABG O2 Sat 96 10/22/18 13:46 PT/INR, D-dimer PT 16.2 Sec. (12.2-14.9) H 10/25/18 05:32 INR 1.22 (0.87-1.13) H 10/25/18 05:32 Abnormal lab findings: Abnormal Labs 10/16/18 10/16/18 10/16/18 14:39 14:39 14:39 WBC 16.6 H MCH 26 L RDW 21.6 H Lymph % (Auto) 10.6 L [place] % (Auto) Lymph # [place] # 0.9 H Seg Neutrophils % 82.9 H Seg Neuts % (Manual) Lymphocytes % (Manual) Nucleated RBC % Seg Neutrophils # 13.8 H Seg Neutrophils # Man Lymphocytes # (Manual) PT 16.6 H INR 1.26 H Sodium Potassium Chloride 107.9 H Carbon Dioxide 21 L BUN Creatinine 0.5 L Glucose 182 H POC Glucose Calcium 7.6 L NT-Pro-B Natriuret Pep U Epithel Cells (Auto) Digoxin 10/16/18 10/16/18 10/16/18 14:39 17:55 19:30 WBC MCH RDW Lymph % (Auto) [place] % (Auto) Lymph # [place] # Seg Neutrophils % Seg Neuts % (Manual) Lymphocytes % (Manual) Nucleated RBC % Seg Neutrophils # Seg Neutrophils # Man Lymphocytes # (Manual) PT INR Sodium Potassium Chloride Carbon Dioxide BUN Creatinine Glucose POC Glucose 164 H Calcium NT-Pro-B Natriuret Pep 4638 H U Epithel Cells (Auto) 15.0 H Digoxin 10/16/18 10/17/18 10/17/18 21:59 05:57 05:57 WBC 17.5 H MCH 25 L RDW 22.3 H Lymph % (Auto) [place] % (Auto) Lymph # [place] # Seg Neutrophils % Seg Neuts % (Manual) 91.0 H Lymphocytes % (Manual) 7.0 L Nucleated RBC % 1.0 H Seg Neutrophils # Seg Neutrophils # Man 15.9 H Lymphocytes # (Manual) PT INR Sodium Potassium Chloride Carbon Dioxide BUN 18 H Creatinine 0.6 L Glucose 197 H POC Glucose 174 H Calcium 7.8 L NT-Pro-B Natriuret Pep U Epithel Cells (Auto) Digoxin 10/17/18 10/17/18 10/17/18 07:49 12:03 16:59 WBC MCH RDW Lymph % (Auto) [place] % (Auto) Lymph # [place] # Seg Neutrophils % Seg Neuts % (Manual) Lymphocytes % (Manual) Nucleated RBC % Seg Neutrophils # Seg Neutrophils # Man Lymphocytes # (Manual) PT INR Sodium Potassium Chloride Carbon Dioxide BUN Creatinine Glucose POC Glucose 195 H 308 H 307 H Calcium NT-Pro-B Natriuret Pep U Epithel Cells (Auto) Digoxin 10/17/18 10/18/18 10/18/18 21:30 08:20 11:57 WBC MCH RDW Lymph % (Auto) [place] % (Auto) Lymph # [place] # Seg Neutrophils % Seg Neuts % (Manual) Lymphocytes % (Manual) Nucleated RBC % Seg Neutrophils # Seg Neutrophils # Man Lymphocytes # (Manual) PT INR Sodium Potassium Chloride Carbon Dioxide BUN Creatinine Glucose POC Glucose 344 H 322 H 302 H Calcium NT-Pro-B Natriuret Pep U Epithel Cells (Auto) Digoxin 10/18/18 10/18/18 10/18/18 17:26 18:00 22:14 WBC MCH RDW Lymph % (Auto) [place] % (Auto) Lymph # [place] # Seg Neutrophils % Seg Neuts % (Manual) Lymphocytes % (Manual) Nucleated RBC % Seg Neutrophils # Seg Neutrophils # Man Lymphocytes # (Manual) PT INR Sodium Potassium Chloride Carbon Dioxide BUN Creatinine Glucose POC Glucose 269 H 290 H 340 H Calcium NT-Pro-B Natriuret Pep U Epithel Cells (Auto) Digoxin 10/19/18 10/19/18 10/19/18 07:38 11:46 17:31 WBC MCH RDW Lymph % (Auto) [place] % (Auto) Lymph # [place] # Seg Neutrophils % Seg Neuts % (Manual) Lymphocytes % (Manual) Nucleated RBC % Seg Neutrophils # Seg Neutrophils # Man Lymphocytes # (Manual) PT INR Sodium Potassium Chloride Carbon Dioxide BUN Creatinine Glucose POC Glucose 304 H 234 H 319 H Calcium NT-Pro-B Natriuret Pep U Epithel Cells (Auto) Digoxin 10/19/18 10/20/18 10/20/18 21:22 06:00 06:00 WBC 21.5 H MCH 25 L RDW 21.4 H Lymph % (Auto) [place] % (Auto) Lymph # [place] # Seg Neutrophils % Seg Neuts % (Manual) 98.0 H Lymphocytes % (Manual) 1.0 L Nucleated RBC % Seg Neutrophils # Seg Neutrophils # Man 21.1 H Lymphocytes # (Manual) 0.2 L PT INR Sodium Potassium Chloride Carbon Dioxide BUN 26 H Creatinine 0.4 L Glucose 177 H POC Glucose 330 H Calcium 8.2 L NT-Pro-B Natriuret Pep U Epithel Cells (Auto) Digoxin 10/20/18 10/20/18 10/21/18 11:41 15:16 08:23 WBC MCH RDW Lymph % (Auto) [place] % (Auto) Lymph # [place] # Seg Neutrophils % Seg Neuts % (Manual) Lymphocytes % (Manual) Nucleated RBC % Seg Neutrophils # Seg Neutrophils # Man Lymphocytes # (Manual) PT INR Sodium Potassium Chloride Carbon Dioxide BUN Creatinine Glucose POC Glucose 178 H 178 H 237 H Calcium NT-Pro-B Natriuret Pep U Epithel Cells (Auto) Digoxin 10/21/18 10/21/18 10/21/18 12:02 21:04 23:27 WBC 11.9 H MCH 25 L RDW 21.4 H Lymph % (Auto) 5.9 L [place] % (Auto) Lymph # 0.7 L [place] # Seg Neutrophils % 89.2 H Seg Neuts % (Manual) Lymphocytes % (Manual) Nucleated RBC % Seg Neutrophils # 10.6 H Seg Neutrophils # Man Lymphocytes # (Manual) PT INR Sodium Potassium Chloride Carbon Dioxide BUN Creatinine Glucose POC Glucose 204 H 188 H Calcium NT-Pro-B Natriuret Pep U Epithel Cells (Auto) Digoxin 10/22/18 10/22/18 10/22/18 08:04 09:44 09:44 WBC 15.0 H MCH 26 L RDW 21.2 H Lymph % (Auto) [place] % (Auto) Lymph # [place] # Seg Neutrophils % Seg Neuts % (Manual) 92.0 H Lymphocytes % (Manual) 6.0 L Nucleated RBC % Seg Neutrophils # Seg Neutrophils # Man 13.8 H Lymphocytes # (Manual) 0.9 L PT INR Sodium 136 L Potassium Chloride 96.4 L Carbon Dioxide BUN 42 H Creatinine Glucose 251 H POC Glucose 242 H Calcium 7.9 L NT-Pro-B Natriuret Pep U Epithel Cells (Auto) Digoxin 10/22/18 10/22/18 10/22/18 12:30 15:26 18:06 WBC MCH RDW Lymph % (Auto) [place] % (Auto) Lymph # [place] # Seg Neutrophils % Seg Neuts % (Manual) Lymphocytes % (Manual) Nucleated RBC % Seg Neutrophils # Seg Neutrophils # Man Lymphocytes # (Manual) PT INR Sodium 133 L Potassium 5.8 H D Chloride 95.3 L Carbon Dioxide BUN 41 H Creatinine 0.6 L Glucose 322 H POC Glucose 208 H 218 H Calcium 8.0 L NT-Pro-B Natriuret Pep U Epithel Cells (Auto) Digoxin 10/23/18 10/23/18 10/23/18 07:32 10:16 12:25 WBC MCH RDW Lymph % (Auto) [place] % (Auto) Lymph # [place] # Seg Neutrophils % Seg Neuts % (Manual) Lymphocytes % (Manual) Nucleated RBC % Seg Neutrophils # Seg Neutrophils # Man Lymphocytes # (Manual) PT INR Sodium 146 H D Potassium 5.7 H Chloride 117.7 H Carbon Dioxide BUN 39 H Creatinine 0.5 L Glucose 299 H POC Glucose 125 H 204 H Calcium 7.9 L NT-Pro-B Natriuret Pep U Epithel Cells (Auto) Digoxin 10/23/18 10/23/18 10/24/18 16:00 20:59 08:47 WBC MCH RDW Lymph % (Auto) [place] % (Auto) Lymph # [place] # Seg Neutrophils % Seg Neuts % (Manual) Lymphocytes % (Manual) Nucleated RBC % Seg Neutrophils # Seg Neutrophils # Man Lymphocytes # (Manual) PT INR Sodium Potassium Chloride Carbon Dioxide BUN Creatinine Glucose POC Glucose 277 H 401 H 327 H Calcium NT-Pro-B Natriuret Pep U Epithel Cells (Auto) Digoxin 10/24/18 10/24/18 10/24/18 09:45 09:45 12:31 WBC MCH RDW Lymph % (Auto) [place] % (Auto) Lymph # [place] # Seg Neutrophils % Seg Neuts % (Manual) Lymphocytes % (Manual) Nucleated RBC % Seg Neutrophils # Seg Neutrophils # Man Lymphocytes # (Manual) PT INR Sodium 134 L D Potassium Chloride 93.3 L Carbon Dioxide BUN 30 H Creatinine 0.5 L Glucose 391 H POC Glucose 219 H Calcium 8.0 L NT-Pro-B Natriuret Pep U Epithel Cells (Auto) Digoxin 0.7 L 10/24/18 10/24/18 10/25/18 16:37 21:14 05:32 WBC MCH 25 L RDW 21.2 H Lymph % (Auto) [place] % (Auto) Lymph # [place] # Seg Neutrophils % Seg Neuts % (Manual) 84.0 H Lymphocytes % (Manual) 6.0 L Nucleated RBC % Seg Neutrophils # Seg Neutrophils # Man Lymphocytes # (Manual) 0.5 L PT INR Sodium Potassium Chloride Carbon Dioxide BUN Creatinine Glucose POC Glucose 148 H 355 H Calcium NT-Pro-B Natriuret Pep U Epithel Cells (Auto) Digoxin 10/25/18 10/25/18 10/25/18 05:32 05:32 07:54 WBC MCH RDW Lymph % (Auto) [place] % (Auto) Lymph # [place] # Seg Neutrophils % Seg Neuts % (Manual) Lymphocytes % (Manual) Nucleated RBC % Seg Neutrophils # Seg Neutrophils # Man Lymphocytes # (Manual) PT 16.2 H INR 1.22 H Sodium Potassium Chloride 96.5 L Carbon Dioxide 32 H D BUN 24 H Creatinine 0.6 L Glucose 264 H POC Glucose 233 H Calcium 8.3 L NT-Pro-B Natriuret Pep U Epithel Cells (Auto) Digoxin 10/25/18 10/25/1819 13:05 18:48 20:57 WBC MCH RDW Lymph % (Auto) [place] % (Auto) Lymph # [place] # Seg Neutrophils % Seg Neuts % (Manual) Lymphocytes % (Manual) Nucleated RBC % Seg Neutrophils # Seg Neutrophils # Man Lymphocytes # (Manual) PT INR Sodium Potassium Chloride Carbon Dioxide BUN Creatinine Glucose POC Glucose 215 H 384 H 264 H Calcium NT-Pro-B Natriuret Pep U Epithel Cells (Auto) Digoxin 10/26/18 10/26/18 10/26/18 07:59 12:26 16:24 WBC MCH RDW Lymph % (Auto) [place] % (Auto) Lymph # [place] # Seg Neutrophils % Seg Neuts % (Manual) Lymphocytes % (Manual) Nucleated RBC % Seg Neutrophils # Seg Neutrophils # Man Lymphocytes # (Manual) PT INR Sodium Potassium Chloride Carbon Dioxide BUN Creatinine Glucose POC Glucose 270 H 197 H 243 H Calcium NT-Pro-B Natriuret Pep U Epithel Cells (Auto) Digoxin 10/26/18 10/27/18 10/27/18 21:28 06:58 06:58 WBC 11.2 H MCH 25 L RDW 21.6 H Lymph % (Auto) [place] % (Auto) 8.4 H Lymph # Benzie # 0.9 H Seg Neutrophils % 75.0 H Seg Neuts % (Manual) 80.0 H Lymphocytes % (Manual) 8.0 L Nucleated RBC % Seg Neutrophils # 8.4 H Seg Neutrophils # Man 9.0 H Lymphocytes # (Manual) 0.9 L PT INR Sodium Potassium Chloride Carbon Dioxide 32 H BUN 34 H Creatinine 0.5 L Glucose POC Glucose 115 H Calcium 7.6 L NT-Pro-B Natriuret Pep U Epithel Cells (Auto) Digoxin 10/27/18 10/27/18 10/27/18 12:03 12:07 16:31 WBC MCH RDW Lymph % (Auto) [place] % (Auto) Lymph # [place] # Seg Neutrophils % Seg Neuts % (Manual) Lymphocytes % (Manual) Nucleated RBC % Seg Neutrophils # Seg Neutrophils # Man Lymphocytes # (Manual) PT INR Sodium Potassium Chloride Carbon Dioxide BUN Creatinine Glucose POC Glucose 45 L 40 L 230 H Calcium NT-Pro-B Natriuret Pep U Epithel Cells (Auto) Digoxin Allied health notes reviewed: nursing
[2018-10-27] MEDS: AMBIEN PO PRN (21:42)
[2018-10-27] MEDS: LANTUS SUB-Q SCH (21:44)
--- NOTE | 2018-10-27 22:26 | Progress Note ---
Assessment and Plan - Patient Problems (1) Chest pain Current Visit: Yes Status: Resolved Plan to address problem: resolved. (2) CHF (congestive heart failure) Current Visit: Yes Status: Chronic Qualifiers: Plan to address problem: Diuretics. (3) CAD (coronary artery disease) of artery bypass graft Current Visit: No Status: Chronic Plan to address problem: supportive., follow cardiology. (4) Cellulitis Current Visit: No Status: Chronic Qualifiers: Site of cellulitis: extremity Site of cellulitis of extremity: lower extremity Laterality: left Qualified Code(s): L03.116 - Cellulitis of left lower limb Plan to address problem: wound care. post surgery today. follow vascular. (5) Diabetes Current Visit: No Status: Chronic Plan to address problem: control BG. Gross non compliant at home with diet. (6) Peripheral vascular disease due to secondary diabetes Current Visit: Yes Status: Acute Plan to address problem: follow vascular, CT angio, tight control of BG. done, see notes. Subjective Date of service: 10/27/18 Principal diagnosis: COPD; Morbid obesity; CAD; CMOP (EF 30-35%); Persistent A- fib/flutter; PAD Interval history: Patient is seen/examined, resting in bed,, records reviewed, case discussed, put on mild pain control.Wbc elevated due to steroids. Patient seen/examined, resting in bed, records reviewed, Will start working on d/c plans. Patient seen/examined, resting in bed, I have read the wound surgeon notes, plans for procedure tomorrow. Once stable, post surgery, will d/c home. hyperbaric therapy to be arranged out patient, once cardio/pulm clearance done, and patient in compliant with her care, ie diet, BG, smoking, etc. Will put on some pain meds. Patient seen/examined, resting in bed post wound debridment, after which she had Cjck, cardiology now on the case, and will clear for ba therapy.amparo, will also get PULm consult for the same reason. Patient seen/examined, resting in bed, records reviewed, case d/w patient. i hav e d/w pulm service.I am awaiting for both cardiology/cardiology to clear her for hyperbaric therapy., after which patient will be d/c once stable. Patient seen/examined, resting in bed, labs reviewed, and addressed.Notes reviewed. will d/c if no procedure will be done. Patient seen/resting in bed, late entry for 10/24/18, service. Consultants notes reviewed, well come vascular procedure.will recheck new labs before any procedure. await CT angio. Patient seen/examined, resting in bed, records/notes reviewed, will follow the CTA with run off tomorrow. Patient seen, resting in bed, s/p CTA, finding reviewed, Vascular surgery planed for Saturday. Patient seen, resting in bed, asleep, VSS, afebrile, records/notes reviewed. Vascular surgery scheduled for tomorrow with DR Vega., then eliqis will be restarted 2days post surgery, as recommended by DR Lundy. Objective - Constitutional Vitals: Vital Signs - 12hr 10/27/18 10/27/18 10/27/18 12:00 20:44 20:46 Pulse Rate 99 H Pulse Rate [ 101 H Anterior Bilateral Throughout] Respiratory 20 Rate [Anterior Bilateral Throughout] O2 Sat by Pulse 99 Oximetry 10/27/18 20:50 Pulse Rate Pulse Rate [ 105 H Anterior Bilateral Throughout] Respiratory 20 Rate [Anterior Bilateral Throughout] O2 Sat by Pulse Oximetry General appearance: Present: no acute distress, well-nourished - EENT Eyes: PERRL, EOM intact ENT: hearing intact, clear oral mucosa Ears: bilateral: normal - Neck Neck: supple, normal ROM - Respiratory Respiratory: bilateral: rhonchi - Breasts Breasts: deferred - Cardiovascular Rhythm: regular Heart Sounds: Present: S1 & S2. Absent: gallop, rub Extremities: pulses intact, No edema, normal color, Full ROM - Gastrointestinal General gastrointestinal: Present: soft, non-tender, non-distended, normal bowel sounds Rectal Exam: deferred - Genitourinary Female genitourinary: deferred - Integumentary Integumentary: clear, warm, dry - Musculoskeletal Musculoskeletal: 1, strength equal bilaterally - Neurologic Neurologic: moves all extremities - Psychiatric Psychiatric: memory intact, appropriate mood/affect, intact judgment & insight - Labs CBC & Chem 7: 10/27/18 06:58 10/27/18 06:58 Labs: Abnormal lab results 10/27/18 10/27/18 10/27/18 Range/Units 06:58 06:58 12:03 WBC 11.2 H (4.5-11.0) K/mm3 MCH 25 L (28-32) pg RDW 21.6 H (13.2-15.2) % [place] % (Auto) 8.4 H (0.0-7.3) % [place] # 0.9 H (0.0-0.8) K/mm3 Seg Neutrophils % 75.0 H (40.0-70.0) % Seg Neuts % (Manual) 80.0 H (40.0-70.0) % Lymphocytes % (Manual) 8.0 L (13.4-35.0) % Seg Neutrophils # 8.4 H (1.8-7.7) K/mm3 Seg Neutrophils # Man 9.0 H (1.8-7.7) K/mm3 Lymphocytes # (Manual) 0.9 L (1.2-5.4) K/mm3 Carbon Dioxide 32 H (22-30) mmol/L BUN 34 H (7-17) mg/dL Creatinine 0.5 L (0.7-1.2) mg/dL POC Glucose 45 L (70-105) Calcium 7.6 L (8.4-10.2) mg/dL 10/27/18 10/27/18 10/27/18 Range/Units 12:07 16:31 21:24 WBC (4.5-11.0) K/mm3 MCH (28-32) pg RDW (13.2-15.2) % [place] % (Auto) (0.0-7.3) % [place] # (0.0-0.8) K/mm3 Seg Neutrophils % (40.0-70.0) % Seg Neuts % (Manual) (40.0-70.0) % Lymphocytes % (Manual) (13.4-35.0) % Seg Neutrophils # (1.8-7.7) K/mm3 Seg Neutrophils # Man (1.8-7.7) K/mm3 Lymphocytes # (Manual) (1.2-5.4) K/mm3 Carbon Dioxide (22-30) mmol/L BUN (7-17) mg/dL Creatinine (0.7-1.2) mg/dL POC Glucose 40 L 230 H 300 H (70-105) Calcium (8.4-10.2) mg/dL Medications & Allergies - Medications Allergies/Adverse Reactions: Allergies Penicillins Allergy (Verified 04/03/18 12:43) Itching Home Medications: Home Medications Medication Instructions Recorded Confirmed Last Taken Type Aspirin [Aspirin BABY CHEW TAB] 81 mg PO DAILY #100 tab.chew 09/07/18 10/16/18 Unknown Rx AtorvaSTATin [Lipitor] 40 mg PO QHS #30 tablet 09/07/18 10/16/18 Unknown Rx Gabapentin [Neurontin] 300 mg PO TID #90 capsule 09/07/18 10/16/18 Unknown Rx Insulin Glargine [Lantus VIAL] 20 units SUB-Q QHS #1 vial 09/07/18 10/16/18 Unknown Rx Ipratropium/Albuterol Sulfate 1 ampul IH QIDRT #120 ampul.neb 09/07/18 10/16/18 Unknown Rx [DUONEB *Not for PRN Use*] Lispro Insulin [Humalog] 5 unit SUB-Q ACHS #5 units 09/07/18 10/16/18 Unknown Rx Furosemide [Lasix TAB] 40 mg PO BID #60 tablet 10/08/18 10/16/18 Unknown Rx LORazepam [Ativan] 1 mg PO Q4H PRN #14 tablet 10/08/18 10/16/18 Unknown Rx oxyCODONE /ACETAMINOPHEN [Percocet 2 tab PO Q6H PRN #20 tablet 10/08/18 10/16/18 Unknown Rx 5/325 mg] Lisinopril [Prinivil] 2.5 mg PO QDAY 10/16/18 10/16/18 Unknown History Active Medications: Generic Name Dose Route Start Last Admin Trade Name Freq PRN Reason Stop Dose Admin Acetaminophen/Hydrocodone Bitart 1 each 10/19/18 10:01 10/27/18 17:28 [place] 5/325 PO 1 each Q6H PRN Administration Pain, Moderate (4-6) Albuterol 2.5 mg 10/26/18 14:53 Proventil IH Q4HRT PRN Shortness Of Breath Arformoterol Tartrate 15 mcg 10/26/18 20:00 10/27/18 20:42 Brovana Nebu IH 15 mcg Q12HRT LUZ Administration Aspirin 81 mg 10/17/18 10:00 10/27/18 10:41 Baby Aspirin PO 81 mg DAILY LUZ Administration Atorvastatin Calcium 40 mg 10/16/18 22:00 10/27/18 21:42 Lipitor PO 40 mg QHS LUZ Administration Budesonide 0.5 mg 10/26/18 20:00 10/27/18 20:42 Pulmicort IH 0.5 mg Q12HRT LUZ Administration Digoxin 0.25 mg 10/21/18 17:00 10/27/18 17:29 Lanoxin PO 0.25 mg DAILY@1700 LUZ Administration Furosemide 40 mg 10/17/18 06:00 10/27/18 17:29 Lasix IV 40 mg 0600,1800 LUZ Administration Gabapentin 300 mg 10/16/18 20:00 10/27/18 21:43 Neurontin PO 300 mg TID LUZ Administration Insulin Glargine 20 units 10/16/18 22:00 10/27/18 21:44 Lantus SUB-Q 20 units QHS LUZ Administration Insulin Human Lispro 5 unit 10/16/18 22:00 10/27/18 21:43 Humalog SUB-Q 5 unit [facility] LUZ Administration Insulin Human Lispro 0 unit 10/19/18 11:30 10/27/18 21:44 Humalog SUB-Q 6 unit [facility] Administration Protocol Lisinopril 2.5 mg 10/17/18 10:00 10/27/18 10:40 Zestril PO 2.5 mg QDAY LUZ Administration Lorazepam 1 mg 10/16/18 18:49 10/27/18 00:34 Ativan PO 1 mg Q4H PRN Administration Anxiety Methylprednisolone Sodium Succinate 40 mg 10/27/18 10:00 10/27/18 10:40 Solu-Medrol IV 40 mg DAILY LUZ Administration Metoprolol Tartrate 2.5 mg 10/20/18 16:37 Lopressor IV Q6HR PRN Tachyarrhythmias Metoprolol Tartrate 50 mg 10/21/18 14:00 10/27/18 21:42 Lopressor PO 50 mg Q8HR LUZ Administration Morphine Sulfate 2 mg 10/20/18 08:59 10/27/18 21:42 Morphine IV 2 mg Q6H PRN Administration Pain , Severe (7-10) Pseudoephedrine/Acetam/Chlorphenir 10 ml 10/21/18 15:19 10/27/18 07:00 Robitussin Ac PO 10 ml Q6H PRN Administration Cough Sodium Hypochlorite 1 applic 10/22/18 11:00 10/27/18 21:43 Dakin's Half Strength TP Not Given BID LUZ Zolpidem Tartrate 5 mg 10/16/18 20:12 10/27/18 21:42 Ambien PO 5 mg QHS PRN Administration Sleep
[2018-10-28] MEDS: NORCO 5/325 PO PRN ×4 (00:28→21:43)
[2018-10-28] MEDS: LASIX IV SCH ×2 (05:41→17:35)
[2018-10-28] MEDS: LOPRESSOR PO SCH ×3 (05:54→21:43)
[2018-10-28 06:30] LABS: Hematocrit 36.6 % (30.3-42.9); Hemoglobin 11.3 gm/dl (10.1-14.3); Mean Corpuscular HGB Conc 31 % (30-34); Mean Corpuscular Volume 82 fl (79-97); Platelet Count 209 K/mm3 (140-440); Red Blood Count 4.48 M/mm3 (3.65-5.03)
[2018-10-28 06:46] LABS: Red Cell Distribution Width 21.7 % (13.2-15.2)
[2018-10-28 06:49] LABS: BUN/Creatinine Ratio 88; Blood Urea Nitrogen 35 mg/dL (7-17); Calcium 7.9 mg/dL (8.4-10.2); Hemolysis Index 66
[2018-10-28] MEDS: BROVANA NEBU IH SCH ×2 (08:01→21:02)
[2018-10-28] MEDS: PULMICORT IH SCH ×2 (08:01→21:02)
[2018-10-28] MEDS ORDERED: DIPRIVAN 10 MG/ML 1,000 MG/100 ML BOTTLE IV ONE (08:27)
[2018-10-28] MEDS ORDERED: SUBLIMAZE ONE (08:28)
[2018-10-28] MEDS ORDERED: DIPRIVAN 10 MG/ML IV ONE (08:28)
[2018-10-28] MEDS ORDERED: VERSED IV ONE (08:29)
[2018-10-28] MEDS ORDERED: KETALAR ONE (08:59)
[2018-10-28] MEDS: HumaLOG SUB-Q SCH ×8 (09:00→21:45)
--- NOTE | 2018-10-28 10:01 | Progress Note ---
Assessment and Plan s/p left foot debridement Permanent Atrial fib/flutter on metoprolol and digoxin on low dose eliquis for oral anticoagulation therapy. Currently on hold for planned vascular procedure Ischemic cardiomyopathy with EF 30-35% CAD s/p 3v CABG in 2013 [place] COPD Severe pulmonary hypertension Tobacco abuse Htn DM PAD s/p TMA Chronic non-compliance with medical therapy and medical follow up Recommend: Continue medical therapy for permanent atrial fibrillation, ischemic cardiomyopathy and coronary artery disease. Subjective Date of service: 10/28/18 Principal diagnosis: COPD; Morbid obesity; CAD; CMOP (EF 30-35%); Persistent A- fib/flutter; PAD Interval history: Patient is resting comfortably. Eliquis held for planned left lower extremity revascularization today. Objective Vital Signs Temp Pulse Pulse Resp Resp BP BP 10/28/18 08:58 18 10/28/18 08:12 97.4 F L 18 126/62 10/28/18 08:11 89 18 10/28/18 08:04 10/28/18 08:03 88 18 10/28/18 04:00 98.2 F 53 L 18 119/74 10/28/18 03:00 86 10/28/18 00:21 98.1 F 95 H 18 127/66 10/27/18 20:50 105 H 20 10/27/18 20:46 10/27/18 20:44 101 H 20 10/27/18 19:55 98.3 F 91 H 18 133/79 10/27/18 12:00 99 H Pulse Ox 10/28/18 08:58 10/28/18 08:12 10/28/18 08:11 10/28/18 08:04 96 10/28/18 08:03 10/28/18 04:00 97 10/28/18 03:00 10/28/18 00:21 98 10/27/18 20:50 10/27/18 20:46 99 10/27/18 20:44 10/27/18 19:55 94 10/27/18 12:00 - Physical Examination General: No Apparent Distress, Other (morbidly obese) HEENT: Positive: PERRL Neck: Positive: trachea midline Cardiac: Positive: irregularly irregular Lungs: Positive: Decreased Breath Sounds Neuro: Positive: Grossly Intact - Labs and Meds CBC 10/27/18 10/28/18 Range/Units 06:58 06:04 WBC 11.2 H 11.9 H (4.5-11.0) K/mm3 RBC 4.38 4.48 (3.65-5.03) M/mm3 Hgb 10.9 11.3 (10.1-14.3) gm/dl Hct 35.7 36.6 (30.3-42.9) % Plt Count 206 209 (140-440) K/mm3 Lymph # Not Reportable [place] # 0.9 H (0.0-0.8) K/mm3 Eos # 0.1 (0.0-0.4) K/mm3 Baso # 0.0 (0.0-0.1) K/mm3 Comprehensive Metabolic Panel 10/28/18 Range/Units 06:04 Sodium 142 (137-145) mmol/L Potassium 4.7 (3.6-5.0) mmol/L Chloride 94.1 L (98-107) mmol/L Carbon Dioxide 36 H (22-30) mmol/L BUN 35 H (7-17) mg/dL Creatinine 0.4 L (0.7-1.2) mg/dL Glucose 100 (65-100) mg/dL Calcium 7.9 L (8.4-10.2) mg/dL - Allied health notes Allied health notes reviewed: nursing
[2018-10-28] MEDS ORDERED: NACL 0.9% 1000 ML 1,000 ML ONE (10:09)
[2018-10-28] MEDS ORDERED: XYLOCAINE 2% INFILTRATI ONE (10:10)
[2018-10-28] MEDS ORDERED: HEPARIN 10,000 UNITS/10 ML ONE (10:10)
[2018-10-28] MEDS ORDERED: HEPARIN/NS 5000 UNIT/500ML(CATH LAB) 1,000 ML IR ONE (10:10)
[2018-10-28] MEDS: NEURONTIN PO SCH ×3 (10:21→21:42)
[2018-10-28] MEDS: DAKIN'S HALF STRENGTH TP SCH ×2 (10:25→21:44)
--- NOTE | 2018-10-28 10:26 | Anesthesia Day of Surgery ---
Anesthesia Day of Surgery - Day of Surgery Patient Examined: Yes Patient H&P Reviewed: Yes Patient is NPO: Yes Beta Blockers: No (held today 2/2 bradycardia)
--- NOTE | 2018-10-28 10:26 | Anesthesia Consultation ---
Anesthesia Consult and Med Hx Date of service: 10/28/18 - Airway Anesthetic Teeth Evaluation: Edentulous ROM Head & Neck: Adequate Mental/Hyoid Distance: Inadequate Mallampati Class: Class III Intubation Access Assessment: Possibly Difficult - Pulmonary Exam CTA: Yes - Cardiac Exam Cardiac Exam: RRR - Pre-Operative Health Status ASA Pre-Surgery Classification: ASA4 Proposed Anesthetic Plan: MAC - Pulmonary Hx Smoking: Yes (quit 08/2018) COPD: Yes (intermittently on 2L NC while inpatient) Hx Pneumonia: No Hx Sleep Apnea: No (high risk BRIANA score) - Cardiovascular System Hx Hypertension: Yes Hx Coronary Artery Disease: Yes (CABG x3 (2013)) Hx Heart Attack/AMI: No Hx Percutaneous Transluminal Coronary Angioplasty (PTCA): No Hx Cardia Arrhythmia: Yes (permanent a-fib; hx RVR this admission now rate controlled) Hx Pacemaker: No Hx Internal Defibrillator: No Hx Valvular Heart Disease: No Hx Peripheral Vascular Disease: Yes (left foot ulcer) - Central Nervous System Hx Seizures: No CVA: Yes Hx Back Pain: Yes (chronic back pain) - Endocrine Hx Renal Disease: No Hx Liver Disease: No Hx Insulin Dependent Diabetes: Yes (overall poorly controlled; better controlled while inpatient) Hx Thyroid Disease: No - Hematic Hx Anemia: Yes - Other Systems Hx Obesity: Yes (BMI 45) - Additional Comments Anesthesia Medical History Comments: No hx anesthetic complications.
[2018-10-28 10:49] LABS: Basophils % (Manual) 0 % (0.0-1.8); Eosinophils % (Manual) 0 % (0.0-4.3); Myelocytes # (Manual) 0.1 K/mm3; Total Cells Counted 100
[2018-10-28 10:50] LABS: Anisocytosis 1+; Hypochromasia 1+; Platelet Estimate Consistent w Auto; Poikilocytosis 1+
--- NOTE | 2018-10-28 11:55 | Operative Report ---
Operative Report Operative Report: Exam: Left lower extremity angiography with revascularization Clinical indication: Patient with nonhealing wounds of her left foot and lower leg Date: 10/28/2018 Procedure: Following an explanation of the risks, benefits and alternatives; written informed consent was obtained. The patient was brought to the angiographic suite and placed in supine position on the examination table. Initial ultrasound evaluation of her groin demonstrated a patent right common femoral artery. The patient's right groin was prepped and draped in the usual sterile fashion. 1% lidocaine was used for anesthesia. Under ultrasound guidance, the right common femoral artery was cannulated with a 7 cm 21-gauge needle. A 0.0185 I was advanced centrally. The needle was removed and a micro-sheath placed. The 0.018 guidewire was exchanged for a 0.035 guidewire and a micro-sheath exchanged for a 5 [place] vascular sheath. A 5 [place] Omni flush catheter was advanced over the guidewire and together and together again advanced of the distal abdominal aorta. The guidewire was removed. Aortography was performed. This demonstrates diminutive distal abdominal aorta measuring approximately 12 mm in diameter around its length with diffuse atherosclerotic disease. There is diffuse test was chronic disease and diminutive bilateral common iliac arteries, bilateral external iliac arteries. The bifurcation was crossed using the Omni flush catheter and a 0.035 advantage guidewire. The Omni flush catheter was advanced to the left external iliac artery and angiography performed. The left common femoral artery is patent with diffuse disease. All imaged vessels are diminutive in size at baseline. The profundus is widely patent and provides collateral flow to the [id number] SFA. The SFA is occluded just distal to its origin and reconstitutes above the adductor canal. The other was exchanged for an 0.018 Trailblazer catheter and the V18 guidewire were advanced to just proximal to the occlusion. The catheter and guidewire were then manipulated through the occlusion into the popliteal artery. Angiography was performed which demonstrates true luminal cannulation up. The Trailblazer catheter was then exchanged for a vertebral catheter. Imaging of the popliteal and [id number] vessels was performed. The popliteal vessel has diffuse disease with 20-30% stenosis. The posterior tibial artery is patent to the foot and forms an arch. The anterior tibial artery and peroneal artery are patent proximally although disease. Both vessels occluded around the ankle. A 4 mm spider wire was advanced through the vertebral catheter and positioned in the popliteal artery. The vertebral catheter was removed. Atherectomy of the SFA was performed using a [employer] atherectomy device. Multiple passes were made. Post atherectomy angioplasty was performed using a 4 mm x 220 mm balloon insufflated to nominal atmospheres for 2 minutes. The SFA was then treated using up 150 mm x 5 mm drug-coated balloon followed by an 80 mm x 5 mm drug-coated balloon in the distal SFA. Post atherectomy and angioplasty angiography was performed. There is sluggish flow secondary to debris within the spider wire. A 6 [place] MPA guide cath was then advanced over the spider wire. The spider wire and MPA guide cath but then removed together. Additional angiography was performed through the sheath. His demonstrates brisk flow throughout the entire SFA with visualization of the tibial vessels with no significant debris noted. At this point, the trocar was reinserted over the guidewire and sheath were removed. Hemostasis was achieved using manual compression. A sterile compression dressing was applied. The patient tolerated the procedure well. There were no immediate post procedure complications. Sedation was provided by anesthesia services. Continuous cardiopulmonary monitoring was utilized. Impression: 1) Left lower extremity angiography demonstrating diminutive vessels throughout the entire patient's aorta distally. There is diffuse disease involving the distal aortic, bilateral common iliac arteries, bilateral external iliac arteries, left common femoral artery with scattered areas of 20-30% stenosis. There is complete occlusion of the SFA 3-4 cm distal to his origin with reconstitution above the adductor canal. The posterior tibial artery is dominant flow to the foot. The peroneal and anterior tibial arteries are patent to the ankle with diffuse disease. 2) Revascularization of the SFA using atherectomy, angioplasty and drug-coated balloon. Residual 10-20% stenosis throughout the SFA without hemodynamically significant dissections.
[2018-10-28] MEDS: BABY ASPIRIN PO SCH (14:27)
--- NOTE | 2018-10-28 14:27 | Progress Note ---
Assessment and Plan Patient awake. Patient is on 3 litres O2 and O2 saturation 96%.Patient has left foot wound debridement and wash out.Patient afebrile but has leukocytosis. Complaining non specific bodyaches. Patient undergone to day left lower extremity angio graphy and revascularization. - Patient Problems (1) Chronic ulcer of left foot with fat layer exposed Current Visit: Yes Status: Acute Plan to address problem: Patient underwent left foot debridement and washout.Patient presently on Rocephan Patient undergone to day left lower extremity angio graphy and revascularization. (2) Rapid atrial fibrillation Current Visit: Yes Status: Acute Plan to address problem: Patient is on Metoprolol and Digoxin. Recommend Anticoagulation if no contraindications (3) CHF (congestive heart failure) Current Visit: Yes Status: Chronic Qualifiers: Plan to address problem: Management as per cardiology (4) Diabetes Current Visit: No Status: Chronic Plan to address problem: Management as per primary care. (5) Hypertension Current Visit: No Status: Acute Qualifiers: Hypertension type: essential hypertension Qualified Code(s): I10 - Essential (primary) hypertension Plan to address problem: Management as per primary care (6) COPD exacerbation Current Visit: No Status: Chronic Plan to address problem: O2 2L via nasal cannula. 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 Patient is on 3 litres O2 and O2 saturation 96%. Patient has left foot wound debridement and wash out.Patient afebrile but has leukocytosis. Complaining non specific bodyaches. Patient undergone to day left lower extremity angio graphy and revascularization. Objective Vital Signs - 12hr 10/28/18 10/28/18 10/28/18 03:00 04:00 08:03 Temperature 98.2 F Pulse Rate 86 53 L Pulse Rate [ 88 Anterior Bilateral Throughout] Respiratory 18 Rate Respiratory 18 Rate [Anterior Bilateral Throughout] Blood Pressure Blood Pressure 119/74 [Left] O2 Sat by Pulse 97 Oximetry 10/28/18 10/28/18 10/28/18 08:04 08:11 08:12 Temperature 97.4 F L Pulse Rate Pulse Rate [ 89 Anterior Bilateral Throughout] Respiratory 18 Rate Respiratory 18 Rate [Anterior Bilateral Throughout] Blood Pressure 126/62 Blood Pressure [Left] O2 Sat by Pulse 96 Oximetry 10/28/18 10/28/18 08:58 12:46 Temperature 98.0 F Pulse Rate Pulse Rate [ Anterior Bilateral Throughout] Respiratory 18 18 Rate Respiratory Rate [Anterior Bilateral Throughout] Blood Pressure 111/65 Blood Pressure [Left] O2 Sat by Pulse Oximetry Constitutional: no acute distress, alert Eyes: non-icteric ENT: oropharynx moist, other (Mallampati 3) Neck: supple, no JVD, other (large neck circumference) Effort: mildly labored Ascultation: Bilateral: wheezes (mild), rhonchi (mild), other (prolonged exp phase) Percussion: Bilateral: not dull Cardiovascular: regular rate and rhythm Gastrointestinal: normoactive bowel sounds, soft, non-tender, non-distended Integumentary: rash Extremities: no cyanosis, pink and warm, edema, other (bilateral dressings) Neurologic: normal mental status, non-focal exam, pupils equal and round, CN II- XII normal, motor strength normal and Psychiatric: other (suspect schizoaffective / psych disorder) CBC and BMP: 10/28/18 06:04 10/28/18 06:04 ABG, PT/INR, D-dimer: ABG POC ABG pH 7.418 (7.35-7.45) 10/22/18 13:46 POC ABG pCO2 39.0 (35-45) 10/22/18 13:46 POC ABG pO2 80 (80-105) 10/22/18 13:46 POC ABG HCO3 25.2 (22-26 mml/L) 10/22/18 13:46 POC ABG Total CO2 26 (23-27mmol/L) 10/22/18 13:46 POC ABG O2 Sat 96 10/22/18 13:46 PT/INR, D-dimer PT 16.2 Sec. (12.2-14.9) H 10/25/18 05:32 INR 1.22 (0.87-1.13) H 10/25/18 05:32 Abnormal lab findings: Abnormal Labs 10/16/18 10/16/18 10/16/18 14:39 14:39 14:39 WBC 16.6 H MCH 26 L RDW 21.6 H Lymph % (Auto) 10.6 L [place] % (Auto) Lymph # [place] # 0.9 H Seg Neutrophils % 82.9 H Seg Neuts % (Manual) Lymphocytes % (Manual) Nucleated RBC % Seg Neutrophils # 13.8 H Seg Neutrophils # Man Lymphocytes # (Manual) PT 16.6 H INR 1.26 H Sodium Potassium Chloride 107.9 H Carbon Dioxide 21 L BUN Creatinine 0.5 L Glucose 182 H POC Glucose Calcium 7.6 L NT-Pro-B Natriuret Pep U Epithel Cells (Auto) Digoxin 10/16/18 10/16/18 10/16/18 14:39 17:55 19:30 WBC MCH RDW Lymph % (Auto) [place] % (Auto) Lymph # [place] # Seg Neutrophils % Seg Neuts % (Manual) Lymphocytes % (Manual) Nucleated RBC % Seg Neutrophils # Seg Neutrophils # Man Lymphocytes # (Manual) PT INR Sodium Potassium Chloride Carbon Dioxide BUN Creatinine Glucose POC Glucose 164 H Calcium NT-Pro-B Natriuret Pep 4638 H U Epithel Cells (Auto) 15.0 H Digoxin 10/16/18 10/17/18 10/17/18 21:59 05:57 05:57 WBC 17.5 H MCH 25 L RDW 22.3 H Lymph % (Auto) [place] % (Auto) Lymph # [place] # Seg Neutrophils % Seg Neuts % (Manual) 91.0 H Lymphocytes % (Manual) 7.0 L Nucleated RBC % 1.0 H Seg Neutrophils # Seg Neutrophils # Man 15.9 H Lymphocytes # (Manual) PT INR Sodium Potassium Chloride Carbon Dioxide BUN 18 H Creatinine 0.6 L Glucose 197 H POC Glucose 174 H Calcium 7.8 L NT-Pro-B Natriuret Pep U Epithel Cells (Auto) Digoxin 10/17/18 10/17/18 10/17/18 07:49 12:03 16:59 WBC MCH RDW Lymph % (Auto) [place] % (Auto) Lymph # [place] # Seg Neutrophils % Seg Neuts % (Manual) Lymphocytes % (Manual) Nucleated RBC % Seg Neutrophils # Seg Neutrophils # Man Lymphocytes # (Manual) PT INR Sodium Potassium Chloride Carbon Dioxide BUN Creatinine Glucose POC Glucose 195 H 308 H 307 H Calcium NT-Pro-B Natriuret Pep U Epithel Cells (Auto) Digoxin 10/17/18 10/18/18 10/18/18 21:30 08:20 11:57 WBC MCH RDW Lymph % (Auto) [place] % (Auto) Lymph # [place] # Seg Neutrophils % Seg Neuts % (Manual) Lymphocytes % (Manual) Nucleated RBC % Seg Neutrophils # Seg Neutrophils # Man Lymphocytes # (Manual) PT INR Sodium Potassium Chloride Carbon Dioxide BUN Creatinine Glucose POC Glucose 344 H 322 H 302 H Calcium NT-Pro-B Natriuret Pep U Epithel Cells (Auto) Digoxin 10/18/18 10/18/18 10/18/18 17:26 18:00 22:14 WBC MCH RDW Lymph % (Auto) [place] % (Auto) Lymph # [place] # Seg Neutrophils % Seg Neuts % (Manual) Lymphocytes % (Manual) Nucleated RBC % Seg Neutrophils # Seg Neutrophils # Man Lymphocytes # (Manual) PT INR Sodium Potassium Chloride Carbon Dioxide BUN Creatinine Glucose POC Glucose 269 H 290 H 340 H Calcium NT-Pro-B Natriuret Pep U Epithel Cells (Auto) Digoxin 10/19/18 10/19/18 10/19/18 07:38 11:46 17:31 WBC MCH RDW Lymph % (Auto) [place] % (Auto) Lymph # [place] # Seg Neutrophils % Seg Neuts % (Manual) Lymphocytes % (Manual) Nucleated RBC % Seg Neutrophils # Seg Neutrophils # Man Lymphocytes # (Manual) PT INR Sodium Potassium Chloride Carbon Dioxide BUN Creatinine Glucose POC Glucose 304 H 234 H 319 H Calcium NT-Pro-B Natriuret Pep U Epithel Cells (Auto) Digoxin 10/19/18 10/20/18 10/20/18 21:22 06:00 06:00 WBC 21.5 H MCH 25 L RDW 21.4 H Lymph % (Auto) [place] % (Auto) Lymph # [place] # Seg Neutrophils % Seg Neuts % (Manual) 98.0 H Lymphocytes % (Manual) 1.0 L Nucleated RBC % Seg Neutrophils # Seg Neutrophils # Man 21.1 H Lymphocytes # (Manual) 0.2 L PT INR Sodium Potassium Chloride Carbon Dioxide BUN 26 H Creatinine 0.4 L Glucose 177 H POC Glucose 330 H Calcium 8.2 L NT-Pro-B Natriuret Pep U Epithel Cells (Auto) Digoxin 10/20/18 10/20/18 10/21/18 11:41 15:16 08:23 WBC MCH RDW Lymph % (Auto) [place] % (Auto) Lymph # [place] # Seg Neutrophils % Seg Neuts % (Manual) Lymphocytes % (Manual) Nucleated RBC % Seg Neutrophils # Seg Neutrophils # Man Lymphocytes # (Manual) PT INR Sodium Potassium Chloride Carbon Dioxide BUN Creatinine Glucose POC Glucose 178 H 178 H 237 H Calcium NT-Pro-B Natriuret Pep U Epithel Cells (Auto) Digoxin 10/21/18 10/21/18 10/21/18 12:02 21:04 23:27 WBC 11.9 H MCH 25 L RDW 21.4 H Lymph % (Auto) 5.9 L [place] % (Auto) Lymph # 0.7 L [place] # Seg Neutrophils % 89.2 H Seg Neuts % (Manual) Lymphocytes % (Manual) Nucleated RBC % Seg Neutrophils # 10.6 H Seg Neutrophils # Man Lymphocytes # (Manual) PT INR Sodium Potassium Chloride Carbon Dioxide BUN Creatinine Glucose POC Glucose 204 H 188 H Calcium NT-Pro-B Natriuret Pep U Epithel Cells (Auto) Digoxin 10/22/18 10/22/18 10/22/18 08:04 09:44 09:44 WBC 15.0 H MCH 26 L RDW 21.2 H Lymph % (Auto) [place] % (Auto) Lymph # [place] # Seg Neutrophils % Seg Neuts % (Manual) 92.0 H Lymphocytes % (Manual) 6.0 L Nucleated RBC % Seg Neutrophils # Seg Neutrophils # Man 13.8 H Lymphocytes # (Manual) 0.9 L PT INR Sodium 136 L Potassium Chloride 96.4 L Carbon Dioxide BUN 42 H Creatinine Glucose 251 H POC Glucose 242 H Calcium 7.9 L NT-Pro-B Natriuret Pep U Epithel Cells (Auto) Digoxin 10/22/18 10/22/18 10/22/18 12:30 15:26 18:06 WBC MCH RDW Lymph % (Auto) [place] % (Auto) Lymph # [place] # Seg Neutrophils % Seg Neuts % (Manual) Lymphocytes % (Manual) Nucleated RBC % Seg Neutrophils # Seg Neutrophils # Man Lymphocytes # (Manual) PT INR Sodium 133 L Potassium 5.8 H D Chloride 95.3 L Carbon Dioxide BUN 41 H Creatinine 0.6 L Glucose 322 H POC Glucose 208 H 218 H Calcium 8.0 L NT-Pro-B Natriuret Pep U Epithel Cells (Auto) Digoxin 10/23/18 10/23/18 10/23/18 07:32 10:16 12:25 WBC MCH RDW Lymph % (Auto) [place] % (Auto) Lymph # [place] # Seg Neutrophils % Seg Neuts % (Manual) Lymphocytes % (Manual) Nucleated RBC % Seg Neutrophils # Seg Neutrophils # Man Lymphocytes # (Manual) PT INR Sodium 146 H D Potassium 5.7 H Chloride 117.7 H Carbon Dioxide BUN 39 H Creatinine 0.5 L Glucose 299 H POC Glucose 125 H 204 H Calcium 7.9 L NT-Pro-B Natriuret Pep U Epithel Cells (Auto) Digoxin 10/23/18 10/23/18 10/24/18 16:00 20:59 08:47 WBC MCH RDW Lymph % (Auto) [place] % (Auto) Lymph # [place] # Seg Neutrophils % Seg Neuts % (Manual) Lymphocytes % (Manual) Nucleated RBC % Seg Neutrophils # Seg Neutrophils # Man Lymphocytes # (Manual) PT INR Sodium Potassium Chloride Carbon Dioxide BUN Creatinine Glucose POC Glucose 277 H 401 H 327 H Calcium NT-Pro-B Natriuret Pep U [place]ithel Cells (Auto) Digoxin 10/24/18 10/24/18 10/24/18 09:45 09:45 12:31 WBC MCH RDW Lymph % (Auto) [place] % (Auto) Lymph # [place] # Seg Neutrophils % Seg Neuts % (Manual) Lymphocytes % (Manual) Nucleated RBC % Seg Neutrophils # Seg Neutrophils # Man Lymphocytes # (Manual) PT INR Sodium 134 L D Potassium Chloride 93.3 L Carbon Dioxide BUN 30 H Creatinine 0.5 L Glucose 391 H POC Glucose 219 H Calcium 8.0 L NT-Pro-B Natriuret Pep U Epithel Cells (Auto) Digoxin 0.7 L 10/24/18 10/24/18 10/25/18 16:37 21:14 05:32 WBC MCH 25 L RDW 21.2 H Lymph % (Auto) [place] % (Auto) Lymph # [place] # Seg Neutrophils % Seg Neuts % (Manual) 84.0 H Lymphocytes % (Manual) 6.0 L Nucleated RBC % Seg Neutrophils # Seg Neutrophils # Man Lymphocytes # (Manual) 0.5 L PT INR Sodium Potassium Chloride Carbon Dioxide BUN Creatinine Glucose POC Glucose 148 H 355 H Calcium NT-Pro-B Natriuret Pep U Epithel Cells (Auto) Digoxin 10/25/18 10/25/18 10/25/18 05:32 05:32 07:54 WBC MCH RDW Lymph % (Auto) [place] % (Auto) Lymph # [place] # Seg Neutrophils % Seg Neuts % (Manual) Lymphocytes % (Manual) Nucleated RBC % Seg Neutrophils # Seg Neutrophils # Man Lymphocytes # (Manual) PT 16.2 H INR 1.22 H Sodium Potassium Chloride 96.5 L Carbon Dioxide 32 H D BUN 24 H Creatinine 0.6 L Glucose 264 H POC Glucose 233 H Calcium 8.3 L NT-Pro-B Natriuret Pep U Epithel Cells (Auto) Digoxin 10/25/18 10/25/18 10/25/18 13:05 18:48 20:57 WBC MCH RDW Lymph % (Auto) [place] % (Auto) Lymph # [place] # Seg Neutrophils % Seg Neuts % (Manual) Lymphocytes % (Manual) Nucleated RBC % Seg Neutrophils # Seg Neutrophils # Man Lymphocytes # (Manual) PT INR Sodium Potassium Chloride Carbon Dioxide BUN Creatinine Glucose POC Glucose 215 H 384 H 264 H Calcium NT-Pro-B Natriuret Pep U [place]ithel Cells (Auto) Digoxin 10/26/18 10/26/18 10/26/18 07:59 12:26 16:24 WBC MCH RDW Lymph % (Auto) [place] % (Auto) Lymph # [place] # Seg Neutrophils % Seg Neuts % (Manual) Lymphocytes % (Manual) Nucleated RBC % Seg Neutrophils # Seg Neutrophils # Man Lymphocytes # (Manual) PT INR Sodium Potassium Chloride Carbon Dioxide BUN Creatinine Glucose POC Glucose 270 H 197 H 243 H Calcium NT-Pro-B Natriuret Pep U Epithel Cells (Auto) Digoxin 10/26/18 10/27/18 10/27/18 21:28 06:58 06:58 WBC 11.2 H MCH 25 L RDW 21.6 H Lymph % (Auto) [place] % (Auto) 8.4 H Lymph # [place] # 0.9 H Seg Neutrophils % 75.0 H Seg Neuts % (Manual) 80.0 H Lymphocytes % (Manual) 8.0 L Nucleated RBC % Seg Neutrophils # 8.4 H Seg Neutrophils # Man 9.0 H Lymphocytes # (Manual) 0.9 L PT INR Sodium Potassium Chloride Carbon Dioxide 32 H BUN 34 H Creatinine 0.5 L Glucose POC Glucose 115 H Calcium 7.6 L NT-Pro-B Natriuret Pep U Epithel Cells (Auto) Digoxin 10/27/18 10/27/18 10/27/18 12:03 12:07 16:31 WBC MCH RDW Lymph % (Auto) [place] % (Auto) Lymph # [place] # Seg Neutrophils % Seg Neuts % (Manual) Lymphocytes % (Manual) Nucleated RBC % Seg Neutrophils # Seg Neutrophils # Man Lymphocytes # (Manual) PT INR Sodium Potassium Chloride Carbon Dioxide BUN Creatinine Glucose POC Glucose 45 L 40 L 230 H Calcium NT-Pro-B Natriuret Pep U [place]ithel Cells (Auto) Digoxin 10/27/18 10/28/18 10/28/18 21:24 06:04 06:04 WBC 11.9 H MCH 25 L RDW 21.7 H Lymph % (Auto) [place] % (Auto) Lymph # [place] # Seg Neutrophils % Seg Neuts % (Manual) 90.0 H Lymphocytes % (Manual) 4.0 L Nucleated RBC % Seg Neutrophils # Seg Neutrophils # Man 10.7 H Lymphocytes # (Manual) 0.5 L PT INR Sodium Potassium Chloride 94.1 L Carbon Dioxide 36 H BUN 35 H Creatinine 0.4 L Glucose POC Glucose 300 H Calcium 7.9 L NT-Pro-B Natriuret Pep U Epithel Cells (Auto) Digoxin Allied health notes reviewed: nursing
[2018-10-28] MEDS: SOLU-Medrol IV SCH (14:28)
[2018-10-28] MEDS: ZESTRIL PO SCH (14:28)
[2018-10-28] MEDS: LANOXIN PO SCH (17:35)
--- NOTE | 2018-10-28 20:59 | Progress Note ---
Assessment and Plan - Patient Problems (1) Chest pain Current Visit: Yes Status: Resolved Plan to address problem: resolved. (2) CHF (congestive heart failure) Current Visit: Yes Status: Chronic Qualifiers: Plan to address problem: Diuretics. (3) CAD (coronary artery disease) of artery bypass graft Current Visit: No Status: Chronic Plan to address problem: supportive., follow cardiology. (4) Cellulitis Current Visit: No Status: Chronic Qualifiers: Site of cellulitis: extremity Site of cellulitis of extremity: lower extremity Laterality: left Qualified Code(s): L03.116 - Cellulitis of left lower limb Plan to address problem: wound care. post surgery today. follow vascular. (5) Diabetes Current Visit: No Status: Chronic Plan to address problem: control BG. Gross non compliant at home with diet. (6) Peripheral vascular disease due to secondary diabetes Current Visit: Yes Status: Acute Plan to address problem: follow vascular, CT angio, tight control of BG. done, see notes. Subjective Date of service: 10/28/18 Principal diagnosis: COPD; Morbid obesity; CAD; CMOP (EF 30-35%); Persistent A- fib/flutter; PAD Interval history: Patient is seen/examined, resting in bed,, records reviewed, case discussed, put on mild pain control.Wbc elevated due to steroids. Patient seen/examined, resting in bed, records reviewed, Will start working on d/c plans. Patient seen/examined, resting in bed, I have read the wound surgeon notes, plans for procedure tomorrow. Once stable, post surgery, will d/c home. hyperbaric therapy to be arranged out patient, once cardio/pulm clearance done, and patient in compliant with her care, ie diet, BG, smoking, etc. Will put on some pain meds. Patient seen/examined, resting in bed post wound debridment, after which she had Cjck, cardiology now on the case, and will clear for ba therapy.amparo, will also get PULm consult for the same reason. Patient seen/examined, resting in bed, records reviewed, case d/w patient. i hav e d/w pulm service.I am awaiting for both cardiology/cardiology to clear her for hyperbaric therapy., after which patient will be d/c once stable. Patient seen/examined, resting in bed, labs reviewed, and addressed.Notes reviewed. will d/c if no procedure will be done. Patient seen/resting in bed, late entry for 10/24/18, service. Consultants notes reviewed, well come vascular procedure.will recheck new labs before any procedure. await CT angio. Patient seen/examined, resting in bed, records/notes reviewed, will follow the CTA with run off tomorrow. Patient seen, resting in bed, s/p CTA, finding reviewed, Vascular surgery planed for Saturday. Patient seen, resting in bed, asleep, VSS, afebrile, records/notes reviewed. Vascular surgery scheduled for tomorrow with DR Vega., then eliqis will be restarted 2days post surgery, as recommended by DR Lundy. Patient seen/examined, resting in bed, post vascular surgery, and recovering. Objective - Constitutional Vitals: Vital Signs - 12hr 10/28/18 10/28/18 10/28/18 08:58 12:46 14:51 Temperature 98.0 F Pulse Rate 78 Respiratory 18 18 Rate Blood Pressure 111/65 10/28/18 17:35 Temperature Pulse Rate 78 Respiratory Rate Blood Pressure General appearance: Present: mild distress, well-nourished - EENT Eyes: PERRL, EOM intact ENT: hearing intact, clear oral mucosa Ears: bilateral: normal - Neck Neck: supple, normal ROM - Respiratory Respiratory: bilateral: rhonchi - Breasts Breasts: deferred - Cardiovascular Rhythm: regular Heart Sounds: Present: S1 & S2. Absent: gallop, rub Extremities: pulses intact, No edema, normal color, Full ROM - Gastrointestinal General gastrointestinal: Present: soft, non-tender, non-distended, normal bowel sounds Rectal Exam: deferred - Genitourinary Female genitourinary: deferred - Integumentary Integumentary: clear, warm, dry - Musculoskeletal Musculoskeletal: 1, strength equal bilaterally - Neurologic Neurologic: moves all extremities - Psychiatric Psychiatric: memory intact, appropriate mood/affect, intact judgment & insight - Labs CBC & Chem 7: 10/28/18 06:04 10/28/18 06:04 Labs: Abnormal lab results 10/27/18 10/28/18 10/28/18 Range/Units 21:24 06:04 06:04 WBC 11.9 H (4.5-11.0) K/mm3 MCH 25 L (28-32) pg RDW 21.7 H (13.2-15.2) % Seg Neuts % (Manual) 90.0 H (40.0-70.0) % Lymphocytes % (Manual) 4.0 L (13.4-35.0) % Seg Neutrophils # Man 10.7 H (1.8-7.7) K/mm3 Lymphocytes # (Manual) 0.5 L (1.2-5.4) K/mm3 Chloride 94.1 L (98-107) mmol/L Carbon Dioxide 36 H (22-30) mmol/L BUN 35 H (7-17) mg/dL Creatinine 0.4 L (0.7-1.2) mg/dL POC Glucose 300 H (70-105) Calcium 7.9 L (8.4-10.2) mg/dL 10/28/18 10/28/18 Range/Units 16:57 20:26 WBC (4.5-11.0) K/mm3 MCH (28-32) pg RDW (13.2-15.2) % Seg Neuts % (Manual) (40.0-70.0) % Lymphocytes % (Manual) (13.4-35.0) % Seg Neutrophils # Man (1.8-7.7) K/mm3 Lymphocytes # (Manual) (1.2-5.4) K/mm3 Chloride (98-107) mmol/L Carbon Dioxide (22-30) mmol/L BUN (7-17) mg/dL Creatinine (0.7-1.2) mg/dL POC Glucose 191 H 147 H (70-105) Calcium (8.4-10.2) mg/dL Medications & Allergies - Medications Allergies/Adverse Reactions: Allergies Penicillins Allergy (Verified 04/03/18 12:43) Itching Home Medications: Home Medications Medication Instructions Recorded Confirmed Last Taken Type Aspirin [Aspirin BABY CHEW TAB] 81 mg PO DAILY #100 tab.chew 09/07/18 10/16/18 Unknown Rx AtorvaSTATin [Lipitor] 40 mg PO QHS #30 tablet 09/07/18 10/16/18 Unknown Rx Gabapentin [Neurontin] 300 mg PO TID #90 capsule 09/07/18 10/16/18 Unknown Rx Insulin Glargine [Lantus VIAL] 20 units SUB-Q QHS #1 vial 09/07/18 10/16/18 Unknown Rx Ipratropium/Albuterol Sulfate 1 ampul IH QIDRT #120 ampul.neb 09/07/18 10/16/18 Unknown Rx [DUONEB *Not for PRN Use*] Lispro Insulin [Humalog] 5 unit SUB-Q ACHS #5 units 09/07/18 10/16/18 Unknown Rx Furosemide [Lasix TAB] 40 mg PO BID #60 tablet 10/08/18 10/16/18 Unknown Rx LORazepam [Ativan] 1 mg PO Q4H PRN #14 tablet 10/08/18 10/16/18 Unknown Rx oxyCODONE /ACETAMINOPHEN [Percocet 2 tab PO Q6H PRN #20 tablet 10/08/18 10/16/18 Unknown Rx 5/325 mg] Lisinopril [Prinivil] 2.5 mg PO QDAY 10/16/18 10/16/18 Unknown History Active Medications: Generic Name Dose Route Start Last Admin Trade Name Freq PRN Reason Stop Dose Admin Acetaminophen/Hydrocodone Bitart 1 each 10/19/18 10:01 10/28/18 14:30 [place] 5/325 PO 1 each Q6H PRN Administration Pain, Moderate (4-6) Albuterol 2.5 mg 10/26/18 14:53 Proventil IH Q4HRT PRN Shortness Of Breath Arformoterol Tartrate 15 mcg 10/26/18 20:00 10/28/18 08:01 Brovana Nebu IH 15 mcg Q12HRT LUZ Administration Aspirin 81 mg 10/17/18 10:00 10/28/18 14:27 Baby Aspirin PO 81 mg DAILY LUZ Administration Atorvastatin Calcium 40 mg 10/16/18 22:00 10/27/18 21:42 Lipitor PO 40 mg QHS LZU Administration Budesonide 0.5 mg 10/26/18 20:00 10/28/18 08:01 Pulmicort IH 0.5 mg Q12HRT LUZ Administration Digoxin 0.25 mg 10/21/18 17:00 10/28/18 17:35 Lanoxin PO 0.25 mg DAILY@1700 LUZ Administration Furosemide 40 mg 10/17/18 06:00 10/28/18 17:35 Lasix IV 40 mg 0600,1800 LUZ Administration Gabapentin 300 mg 10/16/18 20:00 10/28/18 14:29 Neurontin PO 300 mg TID LUZ Administration Insulin Glargine 20 units 10/16/18 22:00 10/27/18 21:44 Lantus SUB-Q 20 units QHS LUZ Administration Insulin Human Lispro 5 unit 10/16/18 22:00 10/28/18 17:34 Humalog SUB-Q 5 unit ACHS LUZ Administration Insulin Human Lispro 0 unit 10/19/18 11:30 10/28/18 17:34 Humalog SUB-Q 1 unit ACHS LUZ Administration Protocol Lisinopril 2.5 mg 10/17/18 10:00 10/28/18 14:28 Zestril PO 2.5 mg QDAY LUZ Administration Lorazepam 1 mg 10/16/18 18:49 10/27/18 00:34 Ativan PO 1 mg Q4H PRN Administration Anxiety Methylprednisolone Sodium Succinate 40 mg 10/27/18 10:00 10/28/18 14:28 Solu-Medrol IV 40 mg DAILY LUZ Administration Metoprolol Tartrate 2.5 mg 10/20/18 16:37 Lopressor IV Q6HR PRN Tachyarrhythmias Metoprolol Tartrate 50 mg 10/21/18 14:00 10/28/18 14:51 Lopressor PO 50 mg Q8HR LUZ Administration Morphine Sulfate 2 mg 10/20/18 08:59 10/27/18 21:42 Morphine IV 2 mg Q6H PRN Administration Pain , Severe (7-10) Pseudoephedrine/Acetam/Chlorphenir 10 ml 10/21/18 15:19 10/27/18 07:00 Robitussin Ac PO 10 ml Q6H PRN Administration Cough Sodium Hypochlorite 1 applic 10/22/18 11:00 10/28/18 10:25 Dakin's Half Strength TP Not Given BID [facility] Zolpidem Tartrate 5 mg 10/16/18 20:12 10/27/18 21:42 Ambien PO 5 mg QHS PRN Administration Sleep
[2018-10-28] MEDS: AMBIEN PO PRN (21:43)
[2018-10-28] MEDS: LANTUS SUB-Q SCH (21:45)
[2018-10-29] MEDS: LOPRESSOR PO SCH ×3 (06:04→22:11)
[2018-10-29] MEDS: LASIX IV SCH ×2 (06:04→18:37)
[2018-10-29] MEDS: NORCO 5/325 PO PRN ×3 (06:05→22:13)
[2018-10-29 07:53] LABS: Basophils # (Auto) 0.1 K/mm3 (0.0-0.1); Basophils % (Auto) 0.7 % (0.0-1.8); Eosinophils % (Auto) 0.4 % (0.0-4.3); Hematocrit 37.8 % (30.3-42.9); Hemoglobin 11.8 gm/dl (10.1-14.3); Lymphocytes % (Auto) 8.9 % (13.4-35.0); Mean Corpuscular HGB Conc 31 % (30-34); Mean Corpuscular Volume 81 fl (79-97); Monocytes # (Auto) 0.8 K/mm3 (0.0-0.8); Monocytes % (Auto) 6.7 % (0.0-7.3); Platelet Count 209 K/mm3 (140-440); Red Blood Count 4.65 M/mm3 (3.65-5.03)
[2018-10-29 08:02] LABS: Red Cell Distribution Width 21.9 % (13.2-15.2)
[2018-10-29 08:07] LABS: BUN/Creatinine Ratio 68; Blood Urea Nitrogen 27 mg/dL (7-17); Calcium 8.2 mg/dL (8.4-10.2); Hemolysis Index 15
[2018-10-29] MEDS: BROVANA NEBU IH SCH ×2 (09:10→20:05)
[2018-10-29] MEDS: PULMICORT IH SCH ×2 (09:10→20:05)
[2018-10-29] MEDS: HumaLOG SUB-Q SCH ×10 (09:18→22:35)
--- NOTE | 2018-10-29 09:25 | Consultation ---
History of Present Illness - Reason for Consult Consult date: 10/29/18 large anal wart Requesting physician: SANTY LYNCH - History of Present Illness 58 y/o female with history of tobacco use, COPD, acute on chronic respiratory failure, Atrial fib/flutter, ischemic cardiomyopathy with EF 30-35%, CAD s/p 3v CABG in 2013, Cor Pulmonale, severe pulmonary hypertension, HTN, DM, PAD s/p TMA and chronic non-compliance with medical therapy and medical follow up admitted on 10/16/2018 due to SOB and chest congestion. Seen by Cards for Afib and pulmonary for COPD. Noted to have a left lateral foot with large necrosis [id number]. Patient taken to the OR on 10/21/2018 for left foot diabetic ulcer debridement found to have extensive necrosis of the plantar area of the heel, then on 10/28/2018 for left lower extremity angiography with revascularization of the SFA using atherectomy, angioplasty and drug-coated balloon. Last 48 hour, she has been complaining of anal discomfort and found to have a large anal wart. Patient noted some anal bulge with tenderness 2 months ago during previous admission. She denies any previous warts. She reports celibate all her life. She has never been tested for HIV. ROS: +SOB, dry cough, anal pain. Rest negative including fever, weight loss. Past History Past Medical History: atrial fib, CAD, diabetes, heart failure Past Surgical History: CABG Social history: single, lives with family, smoking. denies: alcohol abuse, IV drug use Family history: no significant family history Medications and Allergies Allergies Allergy/AdvReac Type Severity Reaction Status Date / Time Penicillins Allergy Itching Verified 04/03/18 12:43 Home Medications Medication Instructions Recorded Confirmed Last Taken Type Aspirin [Aspirin BABY CHEW TAB] 81 mg PO DAILY #100 tab.chew 09/07/18 10/16/18 Unknown Rx AtorvaSTATin [Lipitor] 40 mg PO QHS #30 tablet 09/07/18 10/16/18 Unknown Rx Gabapentin [Neurontin] 300 mg PO TID #90 capsule 09/07/18 10/16/18 Unknown Rx Insulin Glargine [Lantus VIAL] 20 units SUB-Q QHS #1 vial 09/07/18 10/16/18 Unknown Rx Ipratropium/Albuterol Sulfate 1 ampul IH QIDRT #120 ampul.neb 09/07/18 10/16/18 Unknown Rx [DUONEB *Not for PRN Use*] Lispro Insulin [Humalog] 5 unit SUB-Q ACHS #5 units 09/07/18 10/16/18 Unknown Rx Furosemide [Lasix TAB] 40 mg PO BID #60 tablet 10/08/18 10/16/18 Unknown Rx LORazepam [Ativan] 1 mg PO Q4H PRN #14 tablet 10/08/18 10/16/18 Unknown Rx oxyCODONE /ACETAMINOPHEN [Percocet 2 tab PO Q6H PRN #20 tablet 10/08/18 10/16/18 Unknown Rx 5/325 mg] Lisinopril [Prinivil] 2.5 mg PO QDAY 10/16/18 10/16/18 Unknown History Active Meds: Active Medications Acetaminophen/Hydrocodone Bitart ([place] 5/325) 1 each PO Q6H PRN PRN Reason: Pain, Moderate (4-6) Last Admin: 10/29/18 06:05 Dose: 1 each Documented by: Albuterol (Proventil) 2.5 mg IH Q4HRT PRN PRN Reason: Shortness Of Breath Arformoterol Tartrate (Brovana Nebu) 15 mcg IH Q12HRT [facility] Last Admin: 10/29/18 09:10 Dose: 15 mcg Documented by: Aspirin (Baby Aspirin) 81 mg PO DAILY [facility] Last Admin: 10/28/18 14:27 Dose: 81 mg Documented by: Atorvastatin Calcium (Lipitor) 40 mg PO QHS [facility] Last Admin: 10/28/18 21:42 Dose: 40 mg Documented by: Budesonide (Pulmicort) 0.5 mg IH Q12HRT [facility] Last Admin: 10/29/18 09:10 Dose: 0.5 mg Documented by: Digoxin (Lanoxin) 0.25 mg PO DAILY@1700 [facility] Last Admin: 10/28/18 17:35 Dose: 0.25 mg Documented by: Furosemide (Lasix) 40 mg IV 0600,1800 [facility] Last Admin: 10/29/18 06:04 Dose: 40 mg Documented by: Gabapentin (Neurontin) 300 mg PO TID [facility] Last Admin: 10/28/18 21:42 Dose: 300 mg Documented by: Insulin Glargine (Lantus) 20 units SUB-Q QHS [facility] Last Admin: 10/28/18 21:45 Dose: Not Given Documented by: Insulin Human Lispro (Humalog) 5 unit SUB-Q [facility] Last Admin: 10/29/18 09:18 Dose: Not Given Documented by: Insulin Human Lispro (Humalog) 0 unit SUB-Q [facility]; Protocol Last Admin: 10/29/18 09:18 Dose: Not Given Documented by: Lisinopril (Zestril) 2.5 mg PO QDAY [facility] Last Admin: 10/28/18 14:28 Dose: 2.5 mg Documented by: Lorazepam (Ativan) 1 mg PO Q4H PRN PRN Reason: Anxiety Last Admin: 10/27/18 00:34 Dose: 1 mg Documented by: Methylprednisolone Sodium Succinate (Solu-Medrol) 40 mg IV DAILY [facility] Last Admin: 10/28/18 14:28 Dose: 40 mg Documented by: Metoprolol Tartrate (Lopressor) 2.5 mg IV Q6HR PRN PRN Reason: Tachyarrhythmias Metoprolol Tartrate (Lopressor) 50 mg PO Q8HR [facility] Last Admin: 10/29/18 06:04 Dose: 50 mg Documented by: Morphine Sulfate (Morphine) 2 mg IV Q6H PRN PRN Reason: Pain , Severe (7-10) Last Admin: 10/27/18 21:42 Dose: 2 mg Documented by: Pseudoephedrine/Acetam/Chlorphenir (Robitussin Ac) 10 ml PO Q6H PRN PRN Reason: Cough Last Admin: 10/27/18 07:00 Dose: 10 ml Documented by: Sodium Hypochlorite ([place]'s Half Strength) 1 applic TP BID [facility] Last Admin: 10/28/18 21:44 Dose: Not Given Documented by: Zolpidem Tartrate (Ambien) 5 mg PO QHS PRN PRN Reason: Sleep Last Admin: 10/28/18 21:43 Dose: 5 mg Documented by: Physical Examination - Physical Exam Narrative exam: General appearance: alert in NAD pleasant, obese Eyes: anicteric sclerae, moist conjunctivae; no lid-lag; PERRLA HENT: Atraumatic; oropharynx clear Neck: Trachea midline; supple, no thyromegaly or lymphadenopathy Lungs: CTA CV: RRR Abdomen: Soft, obese NT Extremities: Jose leg dressings. Skin: multiple cauliflower-shaped pedunculated noodular lesions in perianal area. Psych: no agitated Neuro: alert follows commands - Constitutional Vitals: Vital Signs Temp Pulse Resp BP Pulse Ox 99.0 F 111 H 18 123/67 95 10/29/18 07:59 10/29/18 07:59 10/29/18 07:59 10/29/18 07:59 10/29/18 07:59 Temperature -Last 24 Hours Temperature 99.0 F Temperature 98.0 F Temperature 98.3 F Temperature 97.5 F Temperature 98.0 F Results - Labs CBC & Chem 7: 10/29/18 07:16 10/29/18 07:16 Labs: Abnormal lab results 10/28/18 10/28/18 10/28/18 Range/Units 06:04 16:57 20:26 WBC 11.9 H (4.5-11.0) K/mm3 MCH 25 L (28-32) pg RDW 21.7 H (13.2-15.2) % Lymph % (Auto) (13.4-35.0) % Lymph # (1.2-5.4) K/mm3 Seg Neutrophils % (40.0-70.0) % Seg Neuts % (Manual) 90.0 H (40.0-70.0) % Lymphocytes % (Manual) 4.0 L (13.4-35.0) % Seg Neutrophils # (1.8-7.7) K/mm3 Seg Neutrophils # Man 10.7 H (1.8-7.7) K/mm3 Lymphocytes # (Manual) 0.5 L (1.2-5.4) K/mm3 Chloride (98-107) mmol/L Carbon Dioxide (22-30) mmol/L BUN (7-17) mg/dL Creatinine (0.7-1.2) mg/dL Glucose (65-100) mg/dL POC Glucose 191 H 147 H (70-105) Calcium (8.4-10.2) mg/dL 10/29/18 10/29/18 Range/Units 07:16 07:16 WBC 11.7 H (4.5-11.0) K/mm3 MCH 25 L (28-32) pg RDW 21.9 H (13.2-15.2) % Lymph % (Auto) 8.9 L (13.4-35.0) % Lymph # 1.0 L (1.2-5.4) K/mm3 Seg Neutrophils % 83.3 H (40.0-70.0) % Seg Neuts % (Manual) (40.0-70.0) % Lymphocytes % (Manual) (13.4-35.0) % Seg Neutrophils # 9.7 H (1.8-7.7) K/mm3 Seg Neutrophils # Man (1.8-7.7) K/mm3 Lymphocytes # (Manual) (1.2-5.4) K/mm3 Chloride 93.6 L (98-107) mmol/L Carbon Dioxide 33 H (22-30) mmol/L BUN 27 H (7-17) mg/dL Creatinine 0.4 L (0.7-1.2) mg/dL Glucose 114 H (65-100) mg/dL POC Glucose (70-105) Calcium 8.2 L (8.4-10.2) mg/dL Assessment and Plan Cultures: none Assessment: 58 y/o female with history of tobacco use, COPD, acute on chronic respiratory failure, Atrial fib/flutter, ischemic cardiomyopathy with EF 30-35%, CAD s/p 3v CABG in 2013, Cor Pulmonale, severe pulmonary hypertension, HTN, DM, PAD s/p TMA and chronic non-compliance with medical therapy and medical follow up admitted on 10/16/2018 due to SOB and chest congestion. Seen by Cards for Afib and pulmonary for COPD Last 48 hour, she has been complaining of anal discomfort and found to have a large anal wart. 1) Extensive anal condylomata acuminata: likely due to HPV. Patient noted some anal bulge with tenderness 2 months ago during previous admission. She denies any previous warts. She reports celibate all her life. She has never been tested for HIV. 2) Left foot ulcers: noted with lateral foot large necrotic ulcer [id number]. Patient taken to the OR on 10/21/2018 for left foot diabetic ulcer debridement found to have extensive necrosis of the plantar area of the heel, then on 2018 for left lower extremity angiography with revascularization of the SFA using atherectomy, angioplasty and drug-coated balloon. Recommendations: - Outpatient Colorectal surgery referral for anoscopy to eval anal canal involvement as large lesions, she may need surgical excision v/s laser ablasion v/s electrosurgery - Will ask patient permission for HIV, RPR, GC/chlamydia testing Will follow. Katya Pappas MD Infectious Diseases Weave Room Supervisor [facility] ([facility]) M [phone] O [phone]
[2018-10-29] MEDS: SOLU-Medrol IV SCH (09:36)
[2018-10-29] MEDS: ZESTRIL PO SCH (09:37)
[2018-10-29] MEDS: NEURONTIN PO SCH ×3 (09:37→21:40)
[2018-10-29] MEDS: BABY ASPIRIN PO SCH (09:37)
[2018-10-29] MEDS: DAKIN'S HALF STRENGTH TP SCH ×2 (09:38→22:16)
[2018-10-29] MEDS: ATIVAN PO PRN (09:54)
[2018-10-29] MEDS: MORPHINE IV PRN ×2 (09:54→18:37)
--- NOTE | 2018-10-29 10:20 | Event Note ---
Date: 10/29/[address] Vazquez this morning. He cleared the patient from a cardiac standpoint for hyperbaric therapy. I have asked him to add this clearance to his next note. We have received pulmonary clearance as well. When patient follows-up in wound clinic, we will begin working on hyperbaric therapy arrangements. Please call with questions.
--- NOTE | 2018-10-29 10:52 | Progress Note ---
Assessment and Plan s/p left foot debridement Permanent Atrial fib/flutter on metoprolol and digoxin on low dose eliquis for oral anticoagulation therapy. Currently on hold following LE revascularization procedure Ischemic cardiomyopathy with EF 30-35% CAD s/p 3v CABG in 2013 Cor Pulmonale COPD Severe pulmonary hypertension Tobacco abuse Htn DM PAD s/p TMA Chronic non-compliance with medical therapy and medical follow up Recommend: Continue medical therapy for permanent atrial fibrillation, ischemic cardiomyopathy and coronary artery disease. Resume eliquis therapy when ok with Vascular. Subjective Date of service: 10/29/18 Principal diagnosis: COPD; Morbid obesity; CAD; CMOP (EF 30-35%); Persistent A- fib/flutter; PAD Interval history: Patient is resting comfortably. She has no chest pain, shortness of breath or palpitations. Objective Vital Signs Temp Pulse Pulse Resp Resp BP BP 10/29/18 10:00 10/29/18 09:37 111 H 123/64 10/29/18 09:24 79 20 10/29/18 09:10 78 20 10/29/18 07:59 99.0 F 111 H 18 123/67 10/29/18 05:16 98.0 F 95 H 18 122/62 10/29/18 04:06 97 H 10/29/18 00:00 98.3 F 81 128/70 10/28/18 21:14 82 17 10/28/18 21:03 79 18 10/28/18 17:35 78 10/28/18 17:08 97.5 F L 18 112/64 10/28/18 14:51 78 10/28/18 12:46 98.0 F 18 111/65 Pulse Ox 10/29/18 10:00 96 10/29/18 09:37 10/29/18 09:24 10/29/18 09:10 10/29/18 07:59 95 10/29/18 05:16 90 10/29/18 04:06 10/29/18 00:00 10/28/18 21:14 10/28/18 21:03 10/28/18 17:35 10/28/18 17:08 10/28/18 14:51 10/28/18 12:46 - Physical Examination General: No Apparent Distress, Other (morbidly obese) HEENT: Positive: PERRL Neck: Positive: trachea midline Cardiac: Positive: irregularly irregular Lungs: Positive: Decreased Breath Sounds, Wheezes Neuro: Positive: Grossly Intact - Labs and Meds CBC 10/28/18 10/29/18 Range/Units 06:04 07:16 WBC 11.9 H 11.7 H (4.5-11.0) K/mm3 RBC 4.48 4.65 (3.65-5.03) M/mm3 Hgb 11.3 11.8 (10.1-14.3) gm/dl Hct 36.6 37.8 (30.3-42.9) % Plt Count 209 209 (140-440) K/mm3 Lymph # 1.0 L (1.2-5.4) K/mm3 [place] # 0.8 (0.0-0.8) K/mm3 Eos # 0.0 (0.0-0.4) K/mm3 Baso # 0.1 (0.0-0.1) K/mm3 Comprehensive Metabolic Panel 10/29/18 Range/Units 07:16 Sodium 139 (137-145) mmol/L Potassium 4.1 (3.6-5.0) mmol/L Chloride 93.6 L (98-107) mmol/L Carbon Dioxide 33 H (22-30) mmol/L BUN 27 H (7-17) mg/dL Creatinine 0.4 L (0.7-1.2) mg/dL Glucose 114 H (65-100) mg/dL Calcium 8.2 L (8.4-10.2) mg/dL - Allied health notes Allied health notes reviewed: nursing
--- NOTE | 2018-10-29 13:51 | Progress Note ---
Assessment and Plan 58 year old female with PVD, DM and nonhealing lower extremity wounds. Status post revascularization by Dr. Pulido. POD 1. Can restart eliquis 10/31/18. Subjective Date of service: 10/29/18 Principal diagnosis: COPD; Morbid obesity; CAD; CMOP (EF 30-35%); Persistent A-fib/flutter; PAD Interval history: Patient crying when talking with her, again. Nonhealing wounds on both feet. Left lower extremity has reperfusion warmth. No right groin complication. Cannot palpable popliteal artery due to morbid obesity. Cannot attempt to palpable posterior tibial due to extensive wounds overlying the area. Objective - Constitutional Vitals: Vital Signs - 12hr 10/29/18 10/29/18 10/29/18 04:06 05:16 07:59 Temperature 98.0 F 99.0 F Pulse Rate 97 H 95 H 111 H Pulse Rate [ Anterior Bilateral Throughout] Respiratory 18 18 Rate Respiratory Rate [Anterior Bilateral Throughout] Blood Pressure 122/62 123/67 O2 Sat by Pulse 90 95 Oximetry 10/29/18 10/29/18 10/29/18 09:10 09:24 09:37 Temperature Pulse Rate 111 H Pulse Rate [ 78 79 Anterior Bilateral Throughout] Respiratory Rate Respiratory 20 20 Rate [Anterior Bilateral Throughout] Blood Pressure 123/64 O2 Sat by Pulse Oximetry 10/29/18 10:00 Temperature Pulse Rate Pulse Rate [ Anterior Bilateral Throughout] Respiratory Rate Respiratory Rate [Anterior Bilateral Throughout] Blood Pressure O2 Sat by Pulse 96 Oximetry General appearance: Present: no acute distress - EENT Eyes: EOM intact ENT: hearing intact - Respiratory Respiratory effort: normal Extremities: normal temperature, normal color, abnormal (see subjective) - Gastrointestinal General gastrointestinal: Present: other (obese) - Psychiatric Psychiatric: cooperative, agitated (crying with conversation) - Labs CBC & Chem 7: 10/29/18 07:16 10/29/18 07:16 Labs: Abnormal lab results 10/28/18 10/28/18 10/29/18 Range/Units 16:57 20:26 07:16 WBC 11.7 H (4.5-11.0) K/mm3 MCH 25 L (28-32) pg RDW 21.9 H (13.2-15.2) % Lymph % (Auto) 8.9 L (13.4-35.0) % Lymph # 1.0 L (1.2-5.4) K/mm3 Seg Neutrophils % 83.3 H (40.0-70.0) % Seg Neutrophils # 9.7 H (1.8-7.7) K/mm3 Chloride (98-107) mmol/L Carbon Dioxide (22-30) mmol/L BUN (7-17) mg/dL Creatinine (0.7-1.2) mg/dL Glucose (65-100) mg/dL POC Glucose 191 H 147 H (70-105) Calcium (8.4-10.2) mg/dL 10/29/18 10/29/18 10/29/18 Range/Units 07:16 11:43 12:56 WBC (4.5-11.0) K/mm3 MCH (28-32) pg RDW (13.2-15.2) % Lymph % (Auto) (13.4-35.0) % Lymph # (1.2-5.4) K/mm3 Seg Neutrophils % (40.0-70.0) % Seg Neutrophils # (1.8-7.7) K/mm3 Chloride 93.6 L (98-107) mmol/L Carbon Dioxide 33 H (22-30) mmol/L BUN 27 H (7-17) mg/dL Creatinine 0.4 L (0.7-1.2) mg/dL Glucose 114 H (65-100) mg/dL POC Glucose 254 H 264 H (70-105) Calcium 8.2 L (8.4-10.2) mg/dL Medications & Allergies - Medications Allergies/Adverse Reactions: Allergies Penicillins Allergy (Verified 04/03/18 12:43) Itching Home Medications: Home Medications Medication Instructions Recorded Confirmed Last Taken Type Aspirin [Aspirin BABY CHEW TAB] 81 mg PO DAILY #100 tab.chew 09/07/18 10/16/18 Unknown Rx AtorvaSTATin [Lipitor] 40 mg PO QHS #30 tablet 09/07/18 10/16/18 Unknown Rx Gabapentin [Neurontin] 300 mg PO TID #90 capsule 09/07/18 10/16/18 Unknown Rx Insulin Glargine [Lantus VIAL] 20 units SUB-Q QHS #1 vial 09/07/18 10/16/18 Unknown Rx Ipratropium/Albuterol Sulfate 1 ampul IH QIDRT #120 ampul.neb 09/07/18 10/16/18 Unknown Rx [DUONEB *Not for PRN Use*] Lispro Insulin [Humalog] 5 unit SUB-Q ACHS #5 units 09/07/18 10/16/18 Unknown Rx Furosemide [Lasix TAB] 40 mg PO BID #60 tablet 10/08/18 10/16/18 Unknown Rx LORazepam [Ativan] 1 mg PO Q4H PRN #14 tablet 10/08/18 10/16/18 Unknown Rx oxyCODONE /ACETAMINOPHEN [Percocet 2 tab PO Q6H PRN #20 tablet 10/08/18 10/16/18 Unknown Rx 5/325 mg] Lisinopril [Prinivil] 2.5 mg PO QDAY 10/16/18 10/16/18 Unknown History Active Medications: Generic Name Dose Route Start Last Admin Trade Name Freq PRN Reason Stop Dose Admin Acetaminophen/Hydrocodone Bitart 1 each 10/19/18 10:01 10/29/18 06:05 [place] 5/325 PO 1 each Q6H PRN Administration Pain, Moderate (4-6) Albuterol 2.5 mg 10/26/18 14:53 Proventil IH Q4HRT PRN Shortness Of Breath Arformoterol Tartrate 15 mcg 10/26/18 20:00 10/29/18 09:10 Brovana Nebu IH 15 mcg Q12HRT LUZ Administration Aspirin 81 mg 10/17/18 10:00 10/29/18 09:37 Baby Aspirin PO 81 mg DAILY LUZ Administration Atorvastatin Calcium 40 mg 10/16/18 22:00 10/28/18 21:42 Lipitor PO 40 mg QHS LUZ Administration Budesonide 0.5 mg 10/26/18 20:00 10/29/18 09:10 Pulmicort IH 0.5 mg Q12HRT LUZ Administration Digoxin 0.25 mg 10/21/18 17:00 10/28/18 17:35 Lanoxin PO 0.25 mg DAILY@1700 LUZ Administration Furosemide 40 mg 10/17/18 06:00 10/29/18 06:04 Lasix IV 40 mg 0600,1800 LUZ Administration Gabapentin 300 mg 10/16/18 20:00 10/29/18 09:37 Neurontin PO 300 mg TID LUZ Administration Insulin Glargine 20 units 10/16/18 22:00 10/28/18 21:45 Lantus SUB-Q Not Given QHS [facility] Insulin Human Lispro 5 unit 10/16/18 22:00 10/29/18 09:18 Humalog SUB-Q Not Given ACHS [facility] Insulin Human Lispro 0 unit 10/19/18 11:30 10/29/18 09:18 Humalog SUB-Q Not Given ACHS [facility] Protocol Lisinopril 2.5 mg 10/17/18 10:00 10/29/18 09:37 Zestril PO 2.5 mg QDAY LUZ Administration Lorazepam 1 mg 10/16/18 18:49 10/29/18 09:54 Ativan PO 1 mg Q4H PRN Administration Anxiety Methylprednisolone Sodium Succinate 40 mg 10/27/18 10:00 10/29/18 09:36 Solu-Medrol IV 40 mg DAILY [facility] Administration Metoprolol Tartrate 2.5 mg 10/20/18 16:37 Lopressor IV Q6HR PRN Tachyarrhythmias Metoprolol Tartrate 50 mg 10/21/18 14:00 10/29/18 06:04 Lopressor PO 50 mg Q8HR LUZ Administration Morphine Sulfate 2 mg 10/20/18 08:59 10/29/18 09:54 Morphine IV 2 mg Q6H PRN Administration Pain , Severe (7-10) Pseudoephedrine/Acetam/Chlorphenir 10 ml 10/21/18 15:19 10/27/18 07:00 Robitussin Ac PO 10 ml Q6H PRN Administration Cough Sodium Hypochlorite 1 applic 10/22/18 11:00 10/29/18 09:38 Dakin's Half Strength TP 0.25 applicator BID LUZ Administration Zolpidem Tartrate 5 mg 10/16/18 20:12 10/28/18 21:43 Ambien PO 5 mg QHS PRN Administration Sleep
[2018-10-29] MEDS: ROBITUSSIN AC PO PRN (15:12)
[2018-10-29] MEDS: LANOXIN PO SCH (18:37)
[2018-10-29] MEDS ORDERED: HumuLIN R SUB-Q ONE (20:03)
[2018-10-29] MEDS ORDERED: HumaLOG SUB-Q ONE (20:08)
--- NOTE | 2018-10-29 20:09 | Progress Note ---
Assessment and Plan Patient sleeping at this time on room air.O2 saturation 95%.. Patient has left foot wound debridement and wash out.Patient afebrile but has leukocytosis. Complaining non specific bodyaches. Patient undergone left lower extremity angio graphy and revascularization. . - Patient Problems (1) Chronic ulcer of left foot with fat layer exposed Current Visit: Yes Status: Acute Plan to address problem: Patient underwent left foot debridement and washout.Patient presently on Rocephan Patient undergone to day left lower extremity angio graphy and revascularization. (2) Rapid atrial fibrillation Current Visit: Yes Status: Acute Plan to address problem: Patient is on Metoprolol and Digoxin. Recommend Anticoagulation if no contraindications (3) CHF (congestive heart failure) Current Visit: Yes Status: Chronic Qualifiers: Plan to address problem: Management as per cardiology (4) Diabetes Current Visit: No Status: Chronic Plan to address problem: Management as per primary care. (5) Hypertension Current Visit: No Status: Acute Qualifiers: Hypertension type: essential hypertension Qualified Code(s): I10 - Ess ential (primary) hypertension Plan to address problem: Management as per primary care (6) COPD exacerbation Current Visit: No Status: Chronic Plan to address problem: O2 2L via nasal cannula. Albuterol/Atrovent aerosol treatment q6hrs Continue IV Solumedrol Continue Rocephan SCDs Recommend GI prophylaxis Subjective Date of service: 10/29/18 Principal diagnosis: COPD; Morbid obesity; CAD; CMOP (EF 30-35%); Persistent A- fib/flutter; PAD Interval history: Patient sleeping at this time on room air.O2 saturation 95%.. Patient has left foot wound debridement and wash out.Patient afebrile but has leukocytosis. Complaining non specific bodyaches. Patient undergone left lower extremity angio graphy and revascularization. Objective Vital Signs - 12hr 10/29/18 10/29/18 10/29/18 09:10 09:24 09:37 Temperature Pulse Rate 111 H Pulse Rate [ 78 79 Anterior Bilateral Throughout] Respiratory Rate Respiratory 20 20 Rate [Anterior Bilateral Throughout] Blood Pressure 123/64 O2 Sat by Pulse Oximetry 10/29/18 10/29/18 10/29/18 10:00 17:54 18:00 Temperature 98.7 F Pulse Rate 91 H 105 H Pulse Rate [ Anterior Bilateral Throughout] Respiratory 16 Rate Respiratory Rate [Anterior Bilateral Throughout] Blood Pressure 130/62 O2 Sat by Pulse 96 95 Oximetry 10/29/18 18:37 Temperature Pulse Rate 112 H Pulse Rate [ Anterior Bilateral Throughout] Respiratory Rate Respiratory Rate [Anterior Bilateral Throughout] Blood Pressure O2 Sat by Pulse Oximetry Constitutional: no acute distress, alert Eyes: non-icteric ENT: oropharynx moist, other (Mallampati 3) Neck: supple, no JVD, other (large neck circumference) Effort: mildly labored Ascultation: Bilateral: wheezes (mild), rhonchi (mild), other (prolonged exp pha se) Percussion: Bilateral: not dull Cardiovascular: regular rate and rhythm Gastrointestinal: normoactive bowel sounds, soft, non-tender, non-distended Integumentary: rash Extremities: no cyanosis, pink and warm, edema, other (bilateral dressings) Neurologic: normal mental status, non-focal exam, pupils equal and round, CN II- XII normal, motor strength normal and Psychiatric: other (suspect schizoaffective / psych disorder) CBC and BMP: 10/29/18 07:16 10/29/18 07:16 ABG, PT/INR, D-dimer: ABG POC ABG pH 7.418 (7.35-7.45) 10/22/18 13:46 POC ABG pCO2 39.0 (35-45) 10/22/18 13:46 POC ABG pO2 80 (80-105) 10/22/18 13:46 POC ABG HCO3 25.2 (22-26 mml/L) 10/22/18 13:46 POC ABG Total CO2 26 (23-27mmol/L) 10/22/18 13:46 POC ABG O2 Sat 96 10/22/18 13:46 PT/INR, D-dimer PT 16.2 Sec. (12.2-14.9) H 10/25/18 05:32 INR 1.22 (0.87-1.13) H 10/25/18 05:32 Abnormal lab findings: Abnormal Labs 10/16/18 10/16/18 10/16/18 14:39 14:39 14:39 WBC 16.6 H MCH 26 L RDW 21.6 H Lymph % (Auto) 10.6 L [place] % (Auto) Lymph # [place] # 0.9 H Seg Neutrophils % 82.9 H Seg Neuts % (Manual) Lymphocytes % (Manual) Nucleated RBC % Seg Neutrophils # 13.8 H Seg Neutrophils # Man Lymphocytes # (Manual) PT 16.6 H INR 1.26 H Sodium Potassium Chloride 107.9 H Carbon Dioxide 21 L BUN Creatinine 0.5 L Glucose 182 H POC Glucose Calcium 7.6 L NT-Pro-B Natriuret Pep U Epithel Cells (Auto) Digoxin 10/16/18 10/16/18 10/16/18 14:39 17:55 19:30 WBC MCH RDW Lymph % (Auto) [place] % (Auto) Lymph # [place] # Seg Neutrophils % Seg Neuts % (Manual) Lymphocytes % (Manual) Nucleated RBC % Seg Neutrophils # Seg Neutrophils # Man Lymphocytes # (Manual) PT INR Sodium Potassium Chloride Carbon Dioxide BUN Creatinine Glucose POC Glucose 164 H Calcium NT-Pro-B Natriuret Pep 4638 H U Epithel Cells (Auto) 15.0 H Digoxin 10/16/18 10/17/18 10/17/18 21:59 05:57 05:57 WBC 17.5 H MCH 25 L RDW 22.3 H Lymph % (Auto) [place] % (Auto) Lymph # [place] # Seg Neutrophils % Seg Neuts % (Manual) 91.0 H Lymphocytes % (Manual) 7.0 L Nucleated RBC % 1.0 H Seg Neutrophils # Seg Neutrophils # Man 15.9 H Lymphocytes # (Manual) PT INR Sodium Potassium Chloride Carbon Dioxide BUN 18 H Creatinine 0.6 L Glucose 197 H POC Glucose 174 H Calcium 7.8 L NT-Pro-B Natriuret Pep U Epithel Cells (Auto) Digoxin 10/17/18 10/17/18 10/17/18 07:49 12:03 16:59 WBC MCH RDW Lymph % (Auto) [place] % (Auto) Lymph # [place] # Seg Neutrophils % Seg Neuts % (Manual) Lymphocytes % (Manual) Nucleated RBC % Seg Neutrophils # Seg Neutrophils # Man Lymphocytes # (Manual) PT INR Sodium Potassium Chloride Carbon Dioxide BUN Creatinine Glucose POC Glucose 195 H 308 H 307 H Calcium NT-Pro-B Natriuret Pep U Epithel Cells (Auto) Digoxin 10/17/18 10/18/18 10/18/18 21:30 08:20 11:57 WBC MCH RDW Lymph % (Auto) [place] % (Auto) Lymph # [place] # Seg Neutrophils % Seg Neuts % (Manual) Lymphocytes % (Manual) Nucleated RBC % Seg Neutrophils # Seg Neutrophils # Man Lymphocytes # (Manual) PT INR Sodium Potassium Chloride Carbon Dioxide BUN Creatinine Glucose POC Glucose 344 H 322 H 302 H Calcium NT-Pro-B Natriuret Pep U Epithel Cells (Auto) Digoxin 10/18/18 10/18/18 10/18/18 17:26 18:00 22:14 WBC MCH RDW Lymph % (Auto) [place] % (Auto) Lymph # [place] # Seg Neutrophils % Seg Neuts % (Manual) Lymphocytes % (Manual) Nucleated RBC % Seg Neutrophils # Seg Neutrophils # Man Lymphocytes # (Manual) PT INR Sodium Potassium Chloride Carbon Dioxide BUN Creatinine Glucose POC Glucose 269 H 290 H 340 H Calcium NT-Pro-B Natriuret Pep U Epithel Cells (Auto) Digoxin 10/19/18 10/19/18 10/19/18 07:38 11:46 17:31 WBC MCH RDW Lymph % (Auto) [place] % (Auto) Lymph # [place] # Seg Neutrophils % Seg Neuts % (Manual) Lymphocytes % (Manual) Nucleated RBC % Seg Neutrophils # Seg Neutrophils # Man Lymphocytes # (Manual) PT INR Sodium Potassium Chloride Carbon Dioxide BUN Creatinine Glucose POC Glucose 304 H 234 H 319 H Calcium NT-Pro-B Natriuret Pep U Epithel Cells (Auto) Digoxin 10/19/18 10/20/18 10/20/18 21:22 06:00 06:00 WBC 21.5 H MCH 25 L RDW 21.4 H Lymph % (Auto) [place] % (Auto) Lymph # [place] # Seg Neutrophils % Seg Neuts % (Manual) 98.0 H Lymphocytes % (Manual) 1.0 L Nucleated RBC % Seg Neutrophils # Seg Neutrophils # Man 21.1 H Lymphocytes # (Manual) 0.2 L PT INR Sodium Potassium Chloride Carbon Dioxide BUN 26 H Creatinine 0.4 L Glucose 177 H POC Glucose 330 H Calcium 8.2 L NT-Pro-B Natriuret Pep U Epithel Cells (Auto) Digoxin 10/20/18 10/20/18 10/21/18 11:41 15:16 08:23 WBC MCH RDW Lymph % (Auto) [place] % (Auto) Lymph # [place] # Seg Neutrophils % Seg Neuts % (Manual) Lymphocytes % (Manual) Nucleated RBC % Seg Neutrophils # Seg Neutrophils # Man Lymphocytes # (Manual) PT INR Sodium Potassium Chloride Carbon Dioxide BUN Creatinine Glucose POC Glucose 178 H 178 H 237 H Calcium NT-Pro-B Natriuret Pep U Epithel Cells (Auto) Digoxin 10/21/18 10/21/18 10/21/18 12:02 21:04 23:27 WBC 11.9 H MCH 25 L RDW 21.4 H Lymph % (Auto) 5.9 L [place] % (Auto) Lymph # 0.7 L [place] # Seg Neutrophils % 89.2 H Seg Neuts % (Manual) Lymphocytes % (Manual) Nucleated RBC % Seg Neutrophils # 10.6 H Seg Neutrophils # Man Lymphocytes # (Manual) PT INR Sodium Potassium Chloride Carbon Dioxide BUN Creatinine Glucose POC Glucose 204 H 188 H Calcium NT-Pro-B Natriuret Pep U Epithel Cells (Auto) Digoxin 10/22/18 10/22/18 10/22/18 08:04 09:44 09:44 WBC 15.0 H MCH 26 L RDW 21.2 H Lymph % (Auto) [place] % (Auto) Lymph # [place] # Seg Neutrophils % Seg Neuts % (Manual) 92.0 H Lymphocytes % (Manual) 6.0 L Nucleated RBC % Seg Neutrophils # Seg Neutrophils # Man 13.8 H Lymphocytes # (Manual) 0.9 L PT INR Sodium 136 L Potassium Chloride 96.4 L Carbon Dioxide BUN 42 H Creatinine Glucose 251 H POC Glucose 242 H Calcium 7.9 L NT-Pro-B Natriuret Pep U Epithel Cells (Auto) Digoxin 10/22/18 10/22/18 10/22/18 12:30 15:26 18:06 WBC MCH RDW Lymph % (Auto) [place] % (Auto) Lymph # [place] # Seg Neutrophils % Seg Neuts % (Manual) Lymphocytes % (Manual) Nucleated RBC % Seg Neutrophils # Seg Neutrophils # Man Lymphocytes # (Manual) PT INR Sodium 133 L Potassium 5.8 H D Chloride 95.3 L Carbon Dioxide BUN 41 H Creatinine 0.6 L Glucose 322 H POC Glucose 208 H 218 H Calcium 8.0 L NT-Pro-B Natriuret Pep U Epithel Cells (Auto) Digoxin 10/23/18 10/23/18 10/23/18 07:32 10:16 12:25 WBC MCH RDW Lymph % (Auto) [place] % (Auto) Lymph # [place] # Seg Neutrophils % Seg Neuts % (Manual) Lymphocytes % (Manual) Nucleated RBC % Seg Neutrophils # Seg Neutrophils # Man Lymphocytes # (Manual) PT INR Sodium 146 H D Potassium 5.7 H Chloride 117.7 H Carbon Dioxide BUN 39 H Creatinine 0.5 L Glucose 299 H POC Glucose 125 H 204 H Calcium 7.9 L NT-Pro-B Natriuret Pep U Epithel Cells (Auto) Digoxin 10/23/18 10/23/18 10/24/18 16:00 20:59 08:47 WBC MCH RDW Lymph % (Auto) [place] % (Auto) Lymph # [place] # Seg Neutrophils % Seg Neuts % (Manual) Lymphocytes % (Manual) Nucleated RBC % Seg Neutrophils # Seg Neutrophils # Man Lymphocytes # (Manual) PT INR Sodium Potassium Chloride Carbon Dioxide BUN Creatinine Glucose POC Glucose 277 H 401 H 327 H Calcium NT-Pro-B Natriuret Pep U Epithel Cells (Auto) Digoxin 10/24/18 10/24/18 10/24/18 09:45 09:45 12:31 WBC MCH RDW Lymph % (Auto) [place] % (Auto) Lymph # [place] # Seg Neutrophils % Seg Neuts % (Manual) Lymphocytes % (Manual) Nucleated RBC % Seg Neutrophils # Seg Neutrophils # Man Lymphocytes # (Manual) PT INR Sodium 134 L D Potassium Chloride 93.3 L Carbon Dioxide BUN 30 H Creatinine 0.5 L Glucose 391 H POC Glucose 219 H Calcium 8.0 L NT-Pro-B Natriuret Pep U Epithel Cells (Auto) Digoxin 0.7 L 10/24/18 10/24/18 10/25/18 16:37 21:14 05:32 WBC MCH 25 L RDW 21.2 H Lymph % (Auto) [place] % (Auto) Lymph # [place] # Seg Neutrophils % Seg Neuts % (Manual) 84.0 H Lymphocytes % (Manual) 6.0 L Nucleated RBC % Seg Neutrophils # Seg Neutrophils # Man Lymphocytes # (Manual) 0.5 L PT INR Sodium Potassium Chloride Carbon Dioxide BUN Creatinine Glucose POC Glucose 148 H 355 H Calcium NT-Pro-B Natriuret Pep U Epithel Cells (Auto) Digoxin 10/25/18 10/25/18 10/25/18 05:32 05:32 07:54 WBC MCH RDW Lymph % (Auto) [place] % (Auto) Lymph # [place] # Seg Neutrophils % Seg Neuts % (Manual) Lymphocytes % (Manual) Nucleated RBC % Seg Neutrophils # Seg Neutrophils # Man Lymphocytes # (Manual) PT 16.2 H INR 1.22 H Sodium Potassium Chloride 96.5 L Carbon Dioxide 32 H D BUN 24 H Creatinine 0.6 L Glucose 264 H POC Glucose 233 H Calcium 8.3 L NT-Pro-B Natriuret Pep U Epithel Cells (Auto) Digoxin 10/25/18 10/25/18 10/25/18 13:05 18:48 20:57 WBC MCH RDW Lymph % (Auto) [place] % (Auto) Lymph # [place] # Seg Neutrophils % Seg Neuts % (Manual) Lymphocytes % (Manual) Nucleated RBC % Seg Neutrophils # Seg Neutrophils # Man Lymphocytes # (Manual) PT INR Sodium Potassium Chloride Carbon Dioxide BUN Creatinine Glucose POC Glucose 215 H 384 H 264 H Calcium NT-Pro-B Natriuret Pep U Epithel Cells (Auto) Digoxin 10/26/18 10/26/18 10/26/18 07:59 12:26 16:24 WBC MCH RDW Lymph % (Auto) [place] % (Auto) Lymph # [place] # Seg Neutrophils % Seg Neuts % (Manual) Lymphocytes % (Manual) Nucleated RBC % Seg Neutrophils # Seg Neutrophils # Man Lymphocytes # (Manual) PT INR Sodium Potassium Chloride Carbon Dioxide BUN Creatinine Glucose POC Glucose 270 H 197 H 243 H Calcium NT-Pro-B Natriuret Pep U Epithel Cells (Auto) Digoxin 10/26/18 10/27/18 10/27/18 21:28 06:58 06:58 WBC 11.2 H MCH 25 L RDW 21.6 H Lymph % (Auto) [place] % (Auto) 8.4 H Lymph # [place] # 0.9 H Seg Neutrophils % 75.0 H Seg Neuts % (Manual) 80.0 H Lymphocytes % (Manual) 8.0 L Nucleated RBC % Seg Neutrophils # 8.4 H Seg Neutrophils # Man 9.0 H Lymphocytes # (Manual) 0.9 L PT INR Sodium Potassium Chloride Carbon Dioxide 32 H BUN 34 H Creatinine 0.5 L Glucose POC Glucose 115 H Calcium 7.6 L NT-Pro-B Natriuret Pep U Epithel Cells (Auto) Digoxin 10/27/18 10/27/18 10/27/18 12:03 12:07 16:31 WBC MCH RDW Lymph % (Auto) [place] % (Auto) Lymph # [place] # Seg Neutrophils % Seg Neuts % (Manual) Lymphocytes % (Manual) Nucleated RBC % Seg Neutrophils # Seg Neutrophils # Man Lymphocytes # (Manual) PT INR Sodium Potassium Chloride Carbon Dioxide BUN Creatinine Glucose POC Glucose 45 L 40 L 230 H Calcium NT-Pro-B Natriuret Pep U Epithel Cells (Auto) Digoxin 10/27/18 10/28/18 10/28/18 21:24 06:04 06:04 WBC 11.9 H MCH 25 L RDW 21.7 H Lymph % (Auto) [place] % (Auto) Lymph # [place] # Seg Neutrophils % Seg Neuts % (Manual) 90.0 H Lymphocytes % (Manual) 4.0 L Nucleated RBC % Seg Neutrophils # Seg Neutrophils # Man 10.7 H Lymphocytes # (Manual) 0.5 L PT INR Sodium Potassium Chloride 94.1 L Carbon Dioxide 36 H BUN 35 H Creatinine 0.4 L Glucose POC Glucose 300 H Calcium 7.9 L NT-Pro-B Natriuret Pep U Epithel Cells (Auto) Digoxin 10/28/18 10/28/18 10/29/18 16:57 20:26 07:16 WBC 11.7 H MCH 25 L RDW 21.9 H Lymph % (Auto) 8.9 L [place] % (Auto) Lymph # 1.0 L [place] # Seg Neutrophils % 83.3 H Seg Neuts % (Manual) Lymphocytes % (Manual) Nucleated RBC % Seg Neutrophils # 9.7 H Seg Neutrophils # Man Lymphocytes # (Manual) PT INR Sodium Potassium Chloride Carbon Dioxide BUN Creatinine Glucose POC Glucose 191 H 147 H Calcium NT-Pro-B Natriuret Pep U Epithel Cells (Auto) Digoxin 10/29/18 10/29/18 10/29/18 07:16 11:43 12:56 WBC MCH RDW Lymph % (Auto) [place] % (Auto) Lymph # [place] # Seg Neutrophils % Seg Neuts % (Manual) Lymphocytes % (Manual) Nucleated RBC % Seg Neutrophils # Seg Neutrophils # Man Lymphocytes # (Manual) PT INR Sodium Potassium Chloride 93.6 L Carbon Dioxide 33 H BUN 27 H Creatinine 0.4 L Glucose 114 H POC Glucose 254 H 264 H Calcium 8.2 L NT-Pro-B Natriuret Pep U Epithel Cells (Auto) Digoxin 10/29/18 10/29/18 10/29/18 16:54 17:47 18:36 WBC MCH RDW Lymph % (Auto) [place] % (Auto) Lymph # [place] # Seg Neutrophils % Seg Neuts % (Manual) Lymphocytes % (Manual) Nucleated RBC % Seg Neutrophils # Seg Neutrophils # Man Lymphocytes # (Manual) PT INR Sodium Potassium Chloride Carbon Dioxide BUN Creatinine Glucose POC Glucose 480 H 455 H > 500 H Calcium NT-Pro-B Natriuret Pep U Epithel Cells (Auto) Digoxin Allied health notes reviewed: nursing
[2018-10-29 21:01] LABS: BUN/Creatinine Ratio 48; Blood Urea Nitrogen 24 mg/dL (7-17); Calcium 7.9 mg/dL (8.4-10.2); Hemolysis Index 5
--- NOTE | 2018-10-29 21:26 | Progress Note ---
Assessment and Plan - Patient Problems (1) Chest pain Current Visit: Yes Status: Resolved Plan to address problem: resolved. (2) CHF (congestive heart failure) Current Visit: Yes Status: Chronic Qualifiers: Plan to address problem: Diuretics. (3) CAD (coronary artery disease) of artery bypass graft Current Visit: No Status: Chronic Plan to address problem: supportive., follow cardiology. (4) Cellulitis Current Visit: No Status: Chronic Qualifiers: Site of cellulitis: extremity Site of cellulitis of extremity: lower extremity Laterality: left Qualified Code(s): L03.116 - Cellulitis of left lower limb Plan to address problem: wound care. post surgery today. follow vascular. (5) Diabetes Current Visit: No Status: Chronic Plan to address problem: control BG. Gross non compliant at home with diet. (6) Peripheral vascular disease due to secondary diabetes Current Visit: Yes Status: Acute Plan to address problem: follow vascular, CT angio, tight control of BG. done, see notes. Subjective Date of service: 10/29/18 Principal diagnosis: COPD; Morbid obesity; CAD; CMOP (EF 30-35%); Persistent A- fib/flutter; PAD Interval history: Patient is seen/examined, resting in bed,, records reviewed, case discussed, put on mild pain control.Wbc elevated due to steroids. Patient seen/examined, resting in bed, records reviewed, Will start working on d/c plans. Patient seen/examined, resting in bed, I have read the wound surgeon notes, plans for procedure tomorrow. Once stable, post surgery, will d/c home. hyperbaric therapy to be arranged out patient, once cardio/pulm clearance done, and patient in compliant with her care, ie diet, BG, smoking, etc. Will put on some pain meds. Patient seen/examined, resting in bed post wound debridment, after which she had Cjck, cardiology now on the case, and will clear for ba therapy.amparo, will also get PULm consult for the same reason. Patient seen/examined, resting in bed, records reviewed, case d/w patient. i hav e d/w pulm service.I am awaiting for both cardiology/cardiology to clear her for hyperbaric therapy., after which patient will be d/c once stable. Patient seen/examined, resting in bed, labs reviewed, and addressed.Notes reviewed. will d/c if no procedure will be done. Patient seen/resting in bed, late entry for 10/24/18, service. Consultants notes reviewed, well come vascular procedure.will recheck new labs before any procedure. await CT angio. Patient seen/examined, resting in bed, records/notes reviewed, will follow the CTA with run off tomorrow. Patient seen, resting in bed, s/p CTA, finding reviewed, Vascular surgery planed for Saturday. Patient seen, resting in bed, asleep, VSS, afebrile, records/notes reviewed. Vascular surgery scheduled for tomorrow with DR Vega., then eliqis will be restarted 2days post surgery, as recommended by DR Lundy. Patient seen/examined, resting in bed, post vascular surgery, and recovering. Patient, seen/examined, resting in bed, nad, labs/notes reviewed, I have discussed with DR MOSLEY, vascular, and he states that patient may be discharged home tomorrow, and follow up with wound care place at [place], as previously. Objective - Constitutional Vitals: Vital Signs - 12hr 10/29/18 10/29/18 10/29/18 09:24 09:37 10:00 Temperature Pulse Rate 111 H Pulse Rate [ 79 Anterior Bilateral Throughout] Respiratory Rate Respiratory 20 Rate [Anterior Bilateral Throughout] Blood Pressure 123/64 O2 Sat by Pulse 96 Oximetry 10/29/18 10/29/18 10/29/18 17:54 18:00 18:37 Temperature 98.7 F Pulse Rate 91 H 105 H 112 H Pulse Rate [ Anterior Bilateral Throughout] Respiratory 16 Rate Respiratory Rate [Anterior Bilateral Throughout] Blood Pressure 130/62 O2 Sat by Pulse 95 Oximetry 10/29/18 10/29/18 10/29/18 20:05 20:19 20:20 Temperature Pulse Rate Pulse Rate [ 74 78 Anterior Bilateral Throughout] Respiratory Rate Respiratory 18 18 Rate [Anterior Bilateral Throughout] Blood Pressure O2 Sat by Pulse 94 Oximetry 10/29/18 20:24 Temperature 99.0 F Pulse Rate 94 H Pulse Rate [ Anterior Bilateral Throughout] Respiratory 22 Rate Respiratory Rate [Anterior Bilateral Throughout] Blood Pressure 112/49 O2 Sat by Pulse 95 Oximetry General appearance: Present: no acute distress, well-nourished, obese - EENT Eyes: PERRL, EOM intact ENT: hearing intact, clear oral mucosa Ears: bilateral: normal - Neck Neck: supple, normal ROM - Respiratory Respiratory: bilateral: rhonchi - Breasts Breasts: deferred - Cardiovascular Rhythm: regular Heart Sounds: Present: S1 & S2. Absent: gallop, rub Extremities: pulses intact, No edema, normal color, Full ROM - Gastrointestinal General gastrointestinal: Present: soft, non-tender, non-distended, normal bowel sounds Rectal Exam: deferred - Genitourinary Female genitourinary: deferred - Integumentary Integumentary: clear, warm, dry - Musculoskeletal Musculoskeletal: 1, strength equal bilaterally - Neurologic Neurologic: moves all extremities - Psychiatric Psychiatric: memory intact, appropriate mood/affect, intact judgment & insight - Labs CBC & Chem 7: 10/29/18 07:16 10/29/18 20:03 Labs: Abnormal lab results 10/29/18 10/29/18 10/29/18 Range/Units 07:16 07:16 11:43 WBC 11.7 H (4.5-11.0) K/mm3 MCH 25 L (28-32) pg RDW 21.9 H (13.2-15.2) % Lymph % (Auto) 8.9 L (13.4-35.0) % Lymph # 1.0 L (1.2-5.4) K/mm3 Seg Neutrophils % 83.3 H (40.0-70.0) % Seg Neutrophils # 9.7 H (1.8-7.7) K/mm3 Sodium (137-145) mmol/L Chloride 93.6 L (98-107) mmol/L Carbon Dioxide 33 H (22-30) mmol/L BUN 27 H (7-17) mg/dL Creatinine 0.4 L (0.7-1.2) mg/dL Glucose 114 H (65-100) mg/dL POC Glucose 254 H (70-105) Calcium 8.2 L (8.4-10.2) mg/dL 10/29/18 10/29/18 10/29/18 Range/Units 12:56 16:54 17:47 WBC (4.5-11.0) K/mm3 MCH (28-32) pg RDW (13.2-15.2) % Lymph % (Auto) (13.4-35.0) % Lymph # (1.2-5.4) K/mm3 Seg Neutrophils % (40.0-70.0) % Seg Neutrophils # (1.8-7.7) K/mm3 Sodium (137-145) mmol/L Chloride (98-107) mmol/L Carbon Dioxide (22-30) mmol/L BUN (7-17) mg/dL Creatinine (0.7-1.2) mg/dL Glucose (65-100) mg/dL POC Glucose 264 H 480 H 455 H (70-105) Calcium (8.4-10.2) mg/dL 10/29/18 10/29/18 Range/Units 18:36 20:03 WBC (4.5-11.0) K/mm3 MCH (28-32) pg RDW (13.2-15.2) % Lymph % (Auto) (13.4-35.0) % Lymph # (1.2-5.4) K/mm3 Seg Neutrophils % (40.0-70.0) % Seg Neutrophils # (1.8-7.7) K/mm3 Sodium 136 L (137-145) mmol/L Chloride 91.8 L (98-107) mmol/L Carbon Dioxide (22-30) mmol/L BUN 24 H (7-17) mg/dL Creatinine 0.5 L (0.7-1.2) mg/dL Glucose 390 H (65-100) mg/dL POC Glucose > 500 H (70-105) Calcium 7.9 L (8.4-10.2) mg/dL Medications & Allergies - Medications Allergies/Adverse Reactions: Allergies Penicillins Allergy (Verified 04/03/18 12:43) Itching Home Medications: Home Medications Medication Instructions Recorded Confirmed Last Taken Type Aspirin [Aspirin BABY CHEW TAB] 81 mg PO DAILY #100 tab.chew 09/07/18 10/16/18 Unknown Rx AtorvaSTATin [Lipitor] 40 mg PO QHS #30 tablet 09/07/18 10/16/18 Unknown Rx Gabapentin [Neurontin] 300 mg PO TID #90 capsule 09/07/18 10/16/18 Unknown Rx Insulin Glargine [Lantus VIAL] 20 units SUB-Q QHS #1 vial 09/07/18 10/16/18 Unknown Rx Ipratropium/Albuterol Sulfate 1 ampul IH QIDRT #[address] 09/07/18 10/16/18 Unknown Rx [DUONEB *Not for PRN Use*] Lispro Insulin [Humalog] 5 unit SUB-Q ACHS #5 units 09/07/18 10/16/18 Unknown Rx Furosemide [Lasix TAB] 40 mg PO BID #60 tablet 10/08/18 10/16/18 Unknown Rx LORazepam [Ativan] 1 mg PO Q4H PRN #14 tablet 10/08/18 10/16/18 Unknown Rx oxyCODONE /ACETAMINOPHEN [Percocet 2 tab PO Q6H PRN #20 tablet 10/08/18 10/16/18 Unknown Rx 5/325 mg] Lisinopril [Prinivil] 2.5 mg PO QDAY 10/16/18 10/16/18 Unknown History Active Medications: Generic Name Dose Route Start Last Admin Trade Name Freq PRN Reason Stop Dose Admin Acetaminophen/Hydrocodone Bitart 1 each 10/19/18 10:01 10/29/18 14:40 [place] 5/325 PO 1 each Q6H PRN Administration Pain, Moderate (4-6) Albuterol 2.5 mg 10/26/18 14:53 Proventil IH Q4HRT PRN Shortness Of Breath Arformoterol Tartrate 15 mcg 10/26/18 20:00 10/29/18 20:05 Brovana Nebu IH 15 mcg Q12HRT LUZ Administration Aspirin 81 mg 10/17/18 10:00 10/29/18 09:37 Baby Aspirin PO 81 mg DAILY LUZ Administration Atorvastatin Calcium 40 mg 10/16/18 22:00 10/28/18 21:42 Lipitor PO 40 mg QHS LUZ Administration Budesonide 0.5 mg 10/26/18 20:00 10/29/18 20:05 Pulmicort IH 0.5 mg Q12HRT LUZ Administration Digoxin 0.25 mg 10/21/18 17:00 10/29/18 18:37 Lanoxin PO 0.25 mg DAILY@1700 LUZ Administration Furosemide 40 mg 10/17/18 06:00 10/29/18 18:37 Lasix IV 40 mg 0600,1800 LUZ Administration Gabapentin 300 mg 10/16/18 20:00 10/29/18 14:40 Neurontin PO 300 mg TID LUZ Administration Insulin Glargine 20 units 10/16/18 22:00 10/28/18 21:45 Lantus SUB-Q Not Given QHS [facility] Insulin Human Lispro 5 unit 10/16/18 22:00 10/29/18 16:54 Humalog SUB-Q 5 unit ACHS LUZ Administration Insulin Human Lispro 0 unit 10/19/18 11:30 10/29/18 16:56 Humalog SUB-Q 8 unit ACHS LUZ Administration Protocol Lisinopril 2.5 mg 10/17/18 10:00 10/29/18 09:37 Zestril PO 2.5 mg QDAY LUZ Administration Lorazepam 1 mg 10/16/18 18:49 10/29/18 09:54 Ativan PO 1 mg Q4H PRN Administration Anxiety Methylprednisolone Sodium Succinate 40 mg 10/27/18 10:00 10/29/18 09:36 Solu-Medrol IV 40 mg DAILY LUZ Administration Metoprolol Tartrate 2.5 mg 10/20/18 16:37 Lopressor IV Q6HR PRN Tachyarrhythmias Metoprolol Tartrate 50 mg 10/21/18 14:00 10/29/18 14:40 Lopressor PO 50 mg Q8HR LUZ Administration Morphine Sulfate 2 mg 10/20/18 08:59 10/29/18 18:37 Morphine IV 2 mg Q6H PRN Administration Pain , Severe (7-10) Pseudoephedrine/Acetam/Chlorphenir 10 ml 10/21/18 15:19 10/29/18 15:12 Robitussin Ac PO 10 ml Q6H PRN Administration Cough Sodium Hypochlorite 1 applic 10/22/18 11:00 10/29/18 09:38 Dakin's Half Strength TP 0.25 applicator BID LUZ Administration Zolpidem Tartrate 5 mg 10/16/18 20:12 10/28/18 21:43 Ambien PO 5 mg QHS PRN Administration Sleep
[2018-10-29] MEDS: LANTUS SUB-Q SCH (22:14)
[2018-10-29] MEDS: AMBIEN PO PRN (23:17)
[2018-10-30] MEDS ORDERED: TYLENOL PO PRN (00:54)
[2018-10-30] MEDS: MORPHINE IV PRN ×3 (05:23→18:35)
[2018-10-30 06:18] LABS: Basophils % (Auto) 0.3 % (0.0-1.8); Eosinophils % (Auto) 0.5 % (0.0-4.3); Hemoglobin 10.9 gm/dl (10.1-14.3); Lymphocytes # (Auto) 0.9 K/mm3 (1.2-5.4); Lymphocytes % (Auto) 9.4 % (13.4-35.0); Mean Corpuscular HGB Conc 31 % (30-34); Mean Corpuscular Volume 82 fl (79-97); Monocytes # (Auto) 0.9 K/mm3 (0.0-0.8); Monocytes % (Auto) 9.4 % (0.0-7.3); Platelet Count 157 K/mm3 (140-440); Red Blood Count 4.29 M/mm3 (3.65-5.03)
[2018-10-30 06:44] LABS: BUN/Creatinine Ratio 58; Blood Urea Nitrogen 23 mg/dL (7-17); Hemolysis Index 23
[2018-10-30] MEDS: LASIX IV SCH ×2 (07:00→17:24)
[2018-10-30] MEDS: LOPRESSOR PO SCH ×3 (07:02→22:10)
[2018-10-30] MEDS: HumaLOG SUB-Q SCH ×8 (08:23→22:14)
[2018-10-30] MEDS: NEURONTIN PO SCH ×3 (08:24→20:17)
[2018-10-30] MEDS: NORCO 5/325 PO PRN ×3 (08:24→22:12)
[2018-10-30] MEDS: PULMICORT IH SCH ×2 (09:14→21:05)
[2018-10-30] MEDS: BROVANA NEBU IH SCH ×2 (09:15→21:04)
[2018-10-30] MEDS: BABY ASPIRIN PO SCH (09:43)
[2018-10-30] MEDS: ZESTRIL PO SCH (09:45)
[2018-10-30] MEDS: SOLU-Medrol IV SCH (09:47)
[2018-10-30] MEDS: DAKIN'S HALF STRENGTH TP SCH ×2 (09:51→22:14)
--- NOTE | 2018-10-30 10:42 | Progress Note ---
Assessment and Plan Cultures: 10/16/2018 Blood: no growth MRSA PCR: positive 10/29/2018 Genital Culture: in progress Assessment: 58 y/o female with history of tobacco use, COPD, acute on chronic respiratory failure, Atrial fib/flutter, ischemic cardiomyopathy with EF 30-35%, CAD s/p 3v CABG in 2013, Cor Pulmonale, severe pulmonary hypertension, HTN, DM, PAD s/p TMA and chronic non-compliance with medical therapy and medical follow up admitted on 10/16/2018 due to SOB and chest congestion. Seen by Cards for Afib and pulmonary for COPD Last 48 hour, she has been complaining of anal discomfort and found to have a large anal wart. 1) Extensive anal condylomata acuminata: likely due to HPV. Patient noted some anal bulge with tenderness 2 months ago during previous admission. She denies any previous warts. She reports celibate all her life. HIV nonreactive. 2) Left foot ulcers: noted with lateral foot large necrotic ulcer [id number]. Patient taken to the OR on 10/21/2018 for left foot diabetic ulcer debridement found to have extensive necrosis of the plantar area of the heel, then on 10/28/2018 for left lower extremity angiography with revascularization of the SFA using atherectomy, angioplasty and drug-coated balloon. Recommendations: - Outpatient Colorectal surgery referral for anoscopy to eval anal canal involvement as large lesions, she may need surgical excision v/s laser ablasion v/s electrosurgery ID is signing off [facility] M: [id number] O:[phone] Subjective Date of service: 10/30/18 Principal diagnosis: COPD; Morbid obesity; CAD; CMOP (EF 30-35%); Persistent A- fib/flutter; PAD Interval history: Patient seen and examined. Stated that she was feeling. Stated that she was having anal pain when having a BM. No fevers. Objective - Exam Narrative Exam: General appearance: alert in NAD pleasant, obese Eyes: anicteric sclerae, moist conjunctivae; no lid-lag; PERRLA HENT: Atraumatic; oropharynx clear Neck: Trachea midline; supple, no thyromegaly or lymphadenopathy Lungs: CTA CV: RRR Abdomen: Soft, obese NT Extremities: Jose leg dressings. Skin: multiple cauliflower-shaped pedunculated noodular lesions in perianal area. Psych: no agitated Neuro: alert follows commands - Constitutional Vitals: Vital Signs Temp Pulse Resp BP Pulse Ox 98.1 F 74 20 124/68 95 10/30/18 04:23 10/30/18 10:00 10/30/18 10:00 10/30/18 09:45 10/30/18 10:00 Temperature -Last 24 Hours Temperature 98.1 F Temperature 98.5 F Temperature 99.0 F Temperature 98.7 F - Labs CBC & Chem 7: 10/30/18 05:58 10/30/18 05:58 Labs: Abnormal lab results 10/29/18 10/29/18 10/29/18 Range/Units 11:43 12:56 16:54 MCH (28-32) pg RDW (13.2-15.2) % Lymph % (Auto) (13.4-35.0) % [place] % (Auto) (0.0-7.3) % Lymph # (1.2-5.4) K/mm3 [place] # (0.0-0.8) K/mm3 Seg Neutrophils % (40.0-70.0) % Seg Neutrophils # (1.8-7.7) K/mm3 Sodium (137-145) mmol/L Chloride (98-107) mmol/L Carbon Dioxide (22-30) mmol/L BUN (7-17) mg/dL Creatinine (0.7-1.2) mg/dL Glucose (65-100) mg/dL POC Glucose 254 H 264 H 480 H (70-105) Calcium (8.4-10.2) mg/dL 10/29/18 10/29/18 10/29/18 Range/Units 17:47 18:36 20:03 MCH (28-32) pg RDW (13.2-15.2) % Lymph % (Auto) (13.4-35.0) % [place] % (Auto) (0.0-7.3) % Lymph # (1.2-5.4) K/mm3 [place] # (0.0-0.8) K/mm3 Seg Neutrophils % (40.0-70.0) % Seg Neutrophils # (1.8-7.7) K/mm3 Sodium 136 L (137-145) mmol/L Chloride 91.8 L (98-107) mmol/L Carbon Dioxide (22-30) mmol/L BUN 24 H (7-17) mg/dL Creatinine 0.5 L (0.7-1.2) mg/dL Glucose 390 H (65-100) mg/dL POC Glucose 455 H > 500 H (70-105) Calcium 7.9 L (8.4-10.2) mg/dL 10/29/18 10/30/18 10/30/18 Range/Units 21:59 05:58 05:58 MCH 25 L (28-32) pg RDW 22.0 H (13.2-15.2) % Lymph % (Auto) 9.4 L (13.4-35.0) % [place] % (Auto) 9.4 H (0.0-7.3) % Lymph # 0.9 L (1.2-5.4) K/mm3 [place] # 0.9 H (0.0-0.8) K/mm3 Seg Neutrophils % 80.4 H (40.0-70.0) % Seg Neutrophils # 7.8 H (1.8-7.7) K/mm3 Sodium (137-145) mmol/L Chloride 95.9 L (98-107) mmol/L Carbon Dioxide 32 H (22-30) mmol/L BUN 23 H (7-17) mg/dL Creatinine 0.4 L (0.7-1.2) mg/dL Glucose 130 H (65-100) mg/dL POC Glucose 162 H (70-105) Calcium 8.0 L (8.4-10.2) mg/dL 10/30/18 Range/Units 08:09 MCH (28-32) pg RDW (13.2-15.2) % Lymph % (Auto) (13.4-35.0) % [place] % (Auto) (0.0-7.3) % Lymph # (1.2-5.4) K/mm3 [place] # (0.0-0.8) K/mm3 Seg Neutrophils % (40.0-70.0) % Seg Neutrophils # (1.8-7.7) K/mm3 Sodium (137-145) mmol/L Chloride (98-107) mmol/L Carbon Dioxide (22-30) mmol/L BUN (7-17) mg/dL Creatinine (0.7-1.2) mg/dL Glucose (65-100) mg/dL POC Glucose 106 H (70-105) Calcium (8.4-10.2) mg/dL
--- NOTE | 2018-10-30 11:18 | Progress Note ---
Assessment and Plan s/p left foot debridement Permanent Atrial fib/flutter on metoprolol and digoxin on low dose eliquis for oral anticoagulation therapy. Currently on hold following LE revascularization procedure Ischemic cardiomyopathy with EF 30-35% CAD s/p 3v CABG in 2013 Cor Pulmonale COPD Severe pulmonary hypertension Tobacco abuse Htn DM PAD s/p TMA Chronic non-compliance with medical therapy and medical follow up Recommend: Continue medical therapy for permanent atrial fibrillation, ischemic cardiomyopathy and coronary artery disease. Resume eliquis therapy 5/3 per Vascular. May proceed with hyperbaric therapy cardiac clay. Subjective Date of service: 10/30/18 Principal diagnosis: COPD; Morbid obesity; CAD; CMOP (EF 30-35%); Persistent A- fib/flutter; PAD Interval history: Patient is resting comfortably. Objective Vital Signs Temp Pulse Pulse Pulse Pulse Resp Resp 10/30/18 10:00 74 20 10/30/18 09:45 73 10/30/18 07:02 74 10/30/18 06:00 65 10/30/18 05:02 65 97 H 10/30/18 04:23 98.1 F 68 20 10/30/18 00:08 98.5 F 86 22 10/29/18 22:11 107 H 10/29/18 22:00 94 H 90 20 10/29/18 20:24 99.0 F 94 H 22 10/29/18 20:20 78 18 10/29/18 20:19 10/29/18 20:05 74 18 10/29/18 18:37 112 H 10/29/18 18:00 105 H 10/29/18 17:54 98.7 F 91 H 16 BP BP Pulse Ox 10/30/18 10:00 95 10/30/18 09:45 124/68 10/30/18 07:02 121/68 10/30/18 06:00 10/30/18 05:02 121/76 10/30/18 04:23 92/50 97 10/30/18 00:08 97/36 96 10/29/18 22:11 112/49 10/29/18 22:00 95 10/29/18 20:24 112/49 95 10/29/18 20:20 10/29/18 20:19 94 10/29/18 20:05 10/29/18 18:37 10/29/18 18:00 10/29/18 17:54 130/62 95 - Physical Examination General: No Apparent Distress, Other (morbidly obese) HEENT: Positive: PERRL Neck: Positive: trachea midline Cardiac: Positive: irregularly irregular Lungs: Positive: Decreased Breath Sounds, Wheezes Neuro: Positive: Grossly Intact Extremities: Absent: edema - Labs and Meds CBC 10/30/18 Range/Units 05:58 WBC 9.7 (4.5-11.0) K/mm3 RBC 4.29 (3.65-5.03) M/mm3 Hgb 10.9 (10.1-14.3) gm/dl Hct 35.0 (30.3-42.9) % Plt Count 157 (140-440) K/mm3 Lymph # 0.9 L (1.2-5.4) K/mm3 [place] # 0.9 H (0.0-0.8) K/mm3 Eos # 0.0 (0.0-0.4) K/mm3 Baso # 0.0 (0.0-0.1) K/mm3 Comprehensive Metabolic Panel 10/29/18 10/30/18 Range/Units 20:03 05:58 Sodium 136 L 140 (137-145) mmol/L Potassium 4.3 4.0 (3.6-5.0) mmol/L Chloride 91.8 L 95.9 L (98-107) mmol/L Carbon Dioxide 28 32 H (22-30) mmol/L BUN 24 H 23 H (7-17) mg/dL Creatinine 0.5 L 0.4 L (0.7-1.2) mg/dL Glucose 390 H 130 H (65-100) mg/dL Calcium 7.9 L 8.0 L (8.4-10.2) mg/dL - Allied health notes Allied health notes reviewed: nursing
--- NOTE | 2018-10-30 15:26 | Progress Note ---
Assessment and Plan h/o COPD Tobacco use disorder Morbid obesity Coronary artery disease s/p coronary bypass in 2014, Ischemic cardiomyopathy LVEF 30-35% Persistent atrial flutter fibrillation Peripheral arterial disease, Foot ulcers s/p debridement - No absolute pulmonary complication to hyperbaric oxygen therapy acutely; H/o COPD but not active and no Pneumothorax - continue schedule Brovana and Pulmicort for COPD - continue prn albuterol - continue supplemental oxygen t keep O2 sat>90% - taper systemic steroids to prednisone 20 mg qd - continue anticoagulation while monitoring H&H - Smoking cessation counselling done prior and at each visit - Needs out patient sleep study - Analgesia, limit narcotics - continue tight glycemic control, to help promote wound healing (BG 140 - 180 mg/dl) - PT/OT/mobility as tolerated - Cardioprotective measures - Chronic home medications - Weight loss and life style modifications - Continue supportive care - Monitor hyponatremia - contact isolation ... re-evaluate in am & prn Subjective Date of service: 10/30/18 Principal diagnosis: COPD; Morbid obesity; CAD; CMOP (EF 30-35%); Persistent A- fib/flutter; PAD Interval history: Patient is seen today for: COPD; Morbid obesity; Coronary artery disease s/p coronary bypass in 2013; Ischemic cardiomyopathy LVEF 30-35%; Persistent atrial flutter fibrillation; Peripheral arterial disease; Foot ulcers s/p debridement Seen and examined at bedside; 24-hour events reviewed; nursing and respiratory care staff consulted; no adverse overnight events reported to me; resting peacefully in bed; denies acute chest pains or palpitations; No N/V/F/C; remains on supplemental oxygen; s/p diabetic ulcer debridement Objective Vital Signs - 12hr 10/30/18 10/30/18 10/30/18 04:23 05:02 06:00 Temperature 98.1 F Pulse Rate 68 65 65 Pulse Rate [ Anterior Bilateral Throughout] Pulse Rate [ Right Radial] Respiratory 20 97 H Rate Respiratory Rate [Anterior Bilateral Throughout] Blood Pressure 92/50 Blood Pressure 121/76 [Left] O2 Sat by Pulse 97 Oximetry 10/30/18 10/30/18 10/30/18 07:02 09:14 09:26 Temperature Pulse Rate 74 Pulse Rate [ 74 76 Anterior Bilateral Throughout] Pulse Rate [ Right Radial] Respiratory Rate Respiratory 20 18 Rate [Anterior Bilateral Throughout] Blood Pressure 121/68 Blood Pressure [Left] O2 Sat by Pulse 96 Oximetry 10/30/18 10/30/18 10/30/18 09:45 10:00 12:16 Temperature 98.2 F Pulse Rate 73 64 Pulse Rate [ Anterior Bilateral Throughout] Pulse Rate [ 74 Right Radial] Respiratory 20 18 Rate Respiratory Rate [Anterior Bilateral Throughout] Blood Pressure 124/68 Blood Pressure 108/68 [Left] O2 Sat by Pulse 95 100 Oximetry 10/30/18 13:08 Temperature Pulse Rate 78 Pulse Rate [ Anterior Bilateral Throughout] Pulse Rate [ Right Radial] Respiratory Rate Respiratory Rate [Anterior Bilateral Throughout] Blood Pressure 126/65 Blood Pressure [Left] O2 Sat by Pulse Oximetry Constitutional: alert, other (elderly obese CF normocephalic and with mildly increased resp effort at rest) Eyes: non-icteric ENT: oropharynx moist, other (Mallampati 3) Neck: supple, no JVD, other (large neck circumference) Effort: mildly labored Ascultation: Bilateral: diminished breath sounds, wheezes (mild), rhonchi, other (prolonged exp phase) Percussion: Bilateral: not dull Cardiovascular: regular rate and rhythm Gastrointestinal: normoactive bowel sounds, soft, non-tender, non-distended Integumentary: rash Extremities: no cyanosis, pink and warm, edema, other (left foot ulcer s/p debridement) Neurologic: normal mental status, non-focal exam, pupils equal and round, CN II- XII normal, motor strength normal and Psychiatric: other (suspect schizoaffective / psych disorder) CBC and BMP: 10/30/18 05:58 10/30/18 05:58 ABG, PT/INR, D-dimer: ABG POC ABG pH 7.418 (7.35-7.45) 10/22/18 13:46 POC ABG pCO2 39.0 (35-45) 10/22/18 13:46 POC ABG pO2 80 (80-105) 10/22/18 13:46 POC ABG HCO3 25.2 (22-26 mml/L) 10/22/18 13:46 POC ABG Total CO2 26 (23-27mmol/L) 10/22/18 13:46 POC ABG O2 Sat 96 10/22/18 13:46 PT/INR, D-dimer PT 16.2 Sec. (12.2-14.9) H 10/25/18 05:32 INR 1.22 (0.87-1.13) H 10/25/18 05:32 Abnormal lab findings: Abnormal Labs 10/16/18 10/16/18 10/16/18 14:39 14:39 14:39 WBC 16.6 H MCH 26 L RDW 21.6 H Lymph % (Auto) 10.6 L Nolan % (Auto) Lymph # Nolan # 0.9 H Seg Neutrophils % 82.9 H Seg Neuts % (Manual) Lymphocytes % (Manual) Nucleated RBC % Seg Neutrophils # 13.8 H Seg Neutrophils # Man Lymphocytes # (Manual) PT 16.6 H INR 1.26 H Sodium Potassium Chloride 107.9 H Carbon Dioxide 21 L BUN Creatinine 0.5 L Glucose 182 H POC Glucose Calcium 7.6 L NT-Pro-B Natriuret Pep U Epithel Cells (Auto) Digoxin 10/16/18 10/16/18 10/16/18 14:39 17:55 19:30 WBC MCH RDW Lymph % (Auto) Nolan % (Auto) Lymph # Nolan # Seg Neutrophils % Seg Neuts % (Manual) Lymphocytes % (Manual) Nucleated RBC % Seg Neutrophils # Seg Neutrophils # Man Lymphocytes # (Manual) PT INR Sodium Potassium Chloride Carbon Dioxide BUN Creatinine Glucose POC Glucose 164 H Calcium NT-Pro-B Natriuret Pep 4638 H U Epithel Cells (Auto) 15.0 H Digoxin 10/16/18 10/17/18 10/17/18 21:59 05:57 05:57 WBC 17.5 H MCH 25 L RDW 22.3 H Lymph % (Auto) Nolan % (Auto) Lymph # Nolan # Seg Neutrophils % Seg Neuts % (Manual) 91.0 H Lymphocytes % (Manual) 7.0 L Nucleated RBC % 1.0 H Seg Neutrophils # Seg Neutrophils # Man 15.9 H Lymphocytes # (Manual) PT INR Sodium Potassium Chloride Carbon Dioxide BUN 18 H Creatinine 0.6 L Glucose 197 H POC Glucose 174 H Calcium 7.8 L NT-Pro-B Natriuret Pep U Epithel Cells (Auto) Digoxin 10/17/18 10/17/18 10/17/18 07:49 12:03 16:59 WBC MCH RDW Lymph % (Auto) Nolan % (Auto) Lymph # Nolan # Seg Neutrophils % Seg Neuts % (Manual) Lymphocytes % (Manual) Nucleated RBC % Seg Neutrophils # Seg Neutrophils # Man Lymphocytes # (Manual) PT INR Sodium Potassium Chloride Carbon Dioxide BUN Creatinine Glucose POC Glucose 195 H 308 H 307 H Calcium NT-Pro-B Natriuret Pep U Epithel Cells (Auto) Digoxin 10/17/18 10/18/18 10/18/18 21:30 08:20 11:57 WBC MCH RDW Lymph % (Auto) Nolan % (Auto) Lymph # Nolan # Seg Neutrophils % Seg Neuts % (Manual) Lymphocytes % (Manual) Nucleated RBC % Seg Neutrophils # Seg Neutrophils # Man Lymphocytes # (Manual) PT INR Sodium Potassium Chloride Carbon Dioxide BUN Creatinine Glucose POC Glucose 344 H 322 H 302 H Calcium NT-Pro-B Natriuret Pep U Epithel Cells (Auto) Digoxin 10/18/18 10/18/18 10/18/18 17:26 18:00 22:14 WBC MCH RDW Lymph % (Auto) Nolan % (Auto) Lymph # Nolan # Seg Neutrophils % Seg Neuts % (Manual) Lymphocytes % (Manual) Nucleated RBC % Seg Neutrophils # Seg Neutrophils # Man Lymphocytes # (Manual) PT INR Sodium Potassium Chloride Carbon Dioxide BUN Creatinine Glucose POC Glucose 269 H 290 H 340 H Calcium NT-Pro-B Natriuret Pep U Epithel Cells (Auto) Digoxin 10/19/18 10/19/18 10/19/18 07:38 11:46 17:31 WBC MCH RDW Lymph % (Auto) Nolan % (Auto) Lymph # Nolan # Seg Neutrophils % Seg Neuts % (Manual) Lymphocytes % (Manual) Nucleated RBC % Seg Neutrophils # Seg Neutrophils # Man Lymphocytes # (Manual) PT INR Sodium Potassium Chloride Carbon Dioxide BUN Creatinine Glucose POC Glucose 304 H 234 H 319 H Calcium NT-Pro-B Natriuret Pep U Epithel Cells (Auto) Digoxin 10/19/18 10/20/18 10/20/18 21:22 06:00 06:00 WBC 21.5 H MCH 25 L RDW 21.4 H Lymph % (Auto) Nolan % (Auto) Lymph # Nolan # Seg Neutrophils % Seg Neuts % (Manual) 98.0 H Lymphocytes % (Manual) 1.0 L Nucleated RBC % Seg Neutrophils # Seg Neutrophils # Man 21.1 H Lymphocytes # (Manual) 0.2 L PT INR Sodium Potassium Chloride Carbon Dioxide BUN 26 H Creatinine 0.4 L Glucose 177 H POC Glucose 330 H Calcium 8.2 L NT-Pro-B Natriuret Pep U Epithel Cells (Auto) Digoxin 10/20/18 10/20/18 10/21/18 11:41 15:16 08:23 WBC MCH RDW Lymph % (Auto) Nolan % (Auto) Lymph # Nolan # Seg Neutrophils % Seg Neuts % (Manual) Lymphocytes % (Manual) Nucleated RBC % Seg Neutrophils # Seg Neutrophils # Man Lymphocytes # (Manual) PT INR Sodium Potassium Chloride Carbon Dioxide BUN Creatinine Glucose POC Glucose 178 H 178 H 237 H Calcium NT-Pro-B Natriuret Pep U Epithel Cells (Auto) Digoxin 10/21/18 10/21/18 10/21/18 12:02 21:04 23:27 WBC 11.9 H MCH 25 L RDW 21.4 H Lymph % (Auto) 5.9 L Nolan % (Auto) Lymph # 0.7 L Nolan # Seg Neutrophils % 89.2 H Seg Neuts % (Manual) Lymphocytes % (Manual) Nucleated RBC % Seg Neutrophils # 10.6 H Seg Neutrophils # Man Lymphocytes # (Manual) PT INR Sodium Potassium Chloride Carbon Dioxide BUN Creatinine Glucose POC Glucose 204 H 188 H Calcium NT-Pro-B Natriuret Pep U Epithel Cells (Auto) Digoxin 10/22/18 10/22/18 10/22/18 08:04 09:44 09:44 WBC 15.0 H MCH 26 L RDW 21.2 H Lymph % (Auto) Nolan % (Auto) Lymph # Nolan # Seg Neutrophils % Seg Neuts % (Manual) 92.0 H Lymphocytes % (Manual) 6.0 L Nucleated RBC % Seg Neutrophils # Seg Neutrophils # Man 13.8 H Lymphocytes # (Manual) 0.9 L PT INR Sodium 136 L Potassium Chloride 96.4 L Carbon Dioxide BUN 42 H Creatinine Glucose 251 H POC Glucose 242 H Calcium 7.9 L NT-Pro-B Natriuret Pep U Epithel Cells (Auto) Digoxin 10/22/18 10/22/18 10/22/18 12:30 15:26 18:06 WBC MCH RDW Lymph % (Auto) Nolan % (Auto) Lymph # Nolan # Seg Neutrophils % Seg Neuts % (Manual) Lymphocytes % (Manual) Nucleated RBC % Seg Neutrophils # Seg Neutrophils # Man Lymphocytes # (Manual) PT INR Sodium 133 L Potassium 5.8 H D Chloride 95.3 L Carbon Dioxide BUN 41 H Creatinine 0.6 L Glucose 322 H POC Glucose 208 H 218 H Calcium 8.0 L NT-Pro-B Natriuret Pep U Epithel Cells (Auto) Digoxin 10/23/18 10/23/18 10/23/18 07:32 10:16 12:25 WBC MCH RDW Lymph % (Auto) Nolan % (Auto) Lymph # Nolan # Seg Neutrophils % Seg Neuts % (Manual) Lymphocytes % (Manual) Nucleated RBC % Seg Neutrophils # Seg Neutrophils # Man Lymphocytes # (Manual) PT INR Sodium 146 H D Potassium 5.7 H Chloride 117.7 H Carbon Dioxide BUN 39 H Creatinine 0.5 L Glucose 299 H POC Glucose 125 H 204 H Calcium 7.9 L NT-Pro-B Natriuret Pep U Epithel Cells (Auto) Digoxin 10/23/18 10/23/18 10/24/18 16:00 20:59 08:47 WBC MCH RDW Lymph % (Auto) Nolan % (Auto) Lymph # Nolan # Seg Neutrophils % Seg Neuts % (Manual) Lymphocytes % (Manual) Nucleated RBC % Seg Neutrophils # Seg Neutrophils # Man Lymphocytes # (Manual) PT INR Sodium Potassium Chloride Carbon Dioxide BUN Creatinine Glucose POC Glucose 277 H 401 H 327 H Calcium NT-Pro-B Natriuret Pep U Epithel Cells (Auto) Digoxin 10/24/18 10/24/18 10/24/18 09:45 09:45 12:31 WBC MCH RDW Lymph % (Auto) Nolan % (Auto) Lymph # Nolan # Seg Neutrophils % Seg Neuts % (Manual) Lymphocytes % (Manual) Nucleated RBC % Seg Neutrophils # Seg Neutrophils # Man Lymphocytes # (Manual) PT INR Sodium 134 L D Potassium Chloride 93.3 L Carbon Dioxide BUN 30 H Creatinine 0.5 L Glucose 391 H POC Glucose 219 H Calcium 8.0 L NT-Pro-B Natriuret Pep U Epithel Cells (Auto) Digoxin 0.7 L 10/24/18 10/24/18 10/25/18 16:37 21:14 05:32 WBC MCH 25 L RDW 21.2 H Lymph % (Auto) Nolan % (Auto) Lymph # Nolan # Seg Neutrophils % Seg Neuts % (Manual) 84.0 H Lymphocytes % (Manual) 6.0 L Nucleated RBC % Seg Neutrophils # Seg Neutrophils # Man Lymphocytes # (Manual) 0.5 L PT INR Sodium Potassium Chloride Carbon Dioxide BUN Creatinine Glucose POC Glucose 148 H 355 H Calcium NT-Pro-B Natriuret Pep U Epithel Cells (Auto) Digoxin 10/25/18 10/25/18 10/25/18 05:32 05:32 07:54 WBC MCH RDW Lymph % (Auto) Nolan % (Auto) Lymph # Nolan # Seg Neutrophils % Seg Neuts % (Manual) Lymphocytes % (Manual) Nucleated RBC % Seg Neutrophils # Seg Neutrophils # Man Lymphocytes # (Manual) PT 16.2 H INR 1.22 H Sodium Potassium Chloride 96.5 L Carbon Dioxide 32 H D BUN 24 H Creatinine 0.6 L Glucose 264 H POC Glucose 233 H Calcium 8.3 L NT-Pro-B Natriuret Pep U Epithel Cells (Auto) Digoxin 10/25/18 10/25/18 10/25/18 13:05 18:48 20:57 WBC MCH RDW Lymph % (Auto) Nolan % (Auto) Lymph # Nolan # Seg Neutrophils % Seg Neuts % (Manual) Lymphocytes % (Manual) Nucleated RBC % Seg Neutrophils # Seg Neutrophils # Man Lymphocytes # (Manual) PT INR Sodium Potassium Chloride Carbon Dioxide BUN Creatinine Glucose POC Glucose 215 H 384 H 264 H Calcium NT-Pro-B Natriuret Pep U Epithel Cells (Auto) Digoxin 10/26/18 10/26/18 10/26/18 07:59 12:26 16:24 WBC MCH RDW Lymph % (Auto) Nolan % (Auto) Lymph # Nolan # Seg Neutrophils % Seg Neuts % (Manual) Lymphocytes % (Manual) Nucleated RBC % Seg Neutrophils # Seg Neutrophils # Man Lymphocytes # (Manual) PT INR Sodium Potassium Chloride Carbon Dioxide BUN Creatinine Glucose POC Glucose 270 H 197 H 243 H Calcium NT-Pro-B Natriuret Pep U Epithel Cells (Auto) Digoxin 10/26/18 10/27/18 10/27/18 21:28 06:58 06:58 WBC 11.2 H MCH 25 L RDW 21.6 H Lymph % (Auto) Nolan % (Auto) 8.4 H Lymph # Nolan # 0.9 H Seg Neutrophils % 75.0 H Seg Neuts % (Manual) 80.0 H Lymphocytes % (Manual) 8.0 L Nucleated RBC % Seg Neutrophils # 8.4 H Seg Neutrophils # Man 9.0 H Lymphocytes # (Manual) 0.9 L PT INR Sodium Potassium Chloride Carbon Dioxide 32 H BUN 34 H Creatinine 0.5 L Glucose POC Glucose 115 H Calcium 7.6 L NT-Pro-B Natriuret Pep U Epithel Cells (Auto) Digoxin 10/27/18 10/27/18 10/27/18 12:03 12:07 16:31 WBC MCH RDW Lymph % (Auto) Nolan % (Auto) Lymph # Nolan # Seg Neutrophils % Seg Neuts % (Manual) Lymphocytes % (Manual) Nucleated RBC % Seg Neutrophils # Seg Neutrophils # Man Lymphocytes # (Manual) PT INR Sodium Potassium Chloride Carbon Dioxide BUN Creatinine Glucose POC Glucose 45 L 40 L 230 H Calcium NT-Pro-B Natriuret Pep U Epithel Cells (Auto) Digoxin 10/27/18 10/28/18 10/28/18 21:24 06:04 06:04 WBC 11.9 H MCH 25 L RDW 21.7 H Lymph % (Auto) Nolan % (Auto) Lymph # Nolan # Seg Neutrophils % Seg Neuts % (Manual) 90.0 H Lymphocytes % (Manual) 4.0 L Nucleated RBC % Seg Neutrophils # Seg Neutrophils # Man 10.7 H Lymphocytes # (Manual) 0.5 L PT INR Sodium Potassium Chloride 94.1 L Carbon Dioxide 36 H BUN 35 H Creatinine 0.4 L Glucose POC Glucose 300 H Calcium 7.9 L NT-Pro-B Natriuret Pep U Epithel Cells (Auto) Digoxin 10/28/18 10/28/18 10/29/18 16:57 20:26 07:16 WBC 11.7 H MCH 25 L RDW 21.9 H Lymph % (Auto) 8.9 L Nolan % (Auto) Lymph # 1.0 L Nolan # Seg Neutrophils % 83.3 H Seg Neuts % (Manual) Lymphocytes % (Manual) Nucleated RBC % Seg Neutrophils # 9.7 H Seg Neutrophils # Man Lymphocytes # (Manual) PT INR Sodium Potassium Chloride Carbon Dioxide BUN Creatinine Glucose POC Glucose 191 H 147 H Calcium NT-Pro-B Natriuret Pep U Epithel Cells (Auto) Digoxin 10/29/18 10/29/18 10/29/18 07:16 11:43 12:56 WBC MCH RDW Lymph % (Auto) Nolan % (Auto) Lymph # Nolan # Seg Neutrophils % Seg Neuts % (Manual) Lymphocytes % (Manual) Nucleated RBC % Seg Neutrophils # Seg Neutrophils # Man Lymphocytes # (Manual) PT INR Sodium Potassium Chloride 93.6 L Carbon Dioxide 33 H BUN 27 H Creatinine 0.4 L Glucose 114 H POC Glucose 254 H 264 H Calcium 8.2 L NT-Pro-B Natriuret Pep U Epithel Cells (Auto) Digoxin 10/29/18 10/29/18 10/29/18 16:54 17:47 18:36 WBC MCH RDW Lymph % (Auto) Nolan % (Auto) Lymph # Nolan # Seg Neutrophils % Seg Neuts % (Manual) Lymphocytes % (Manual) Nucleated RBC % Seg Neutrophils # Seg Neutrophils # Man Lymphocytes # (Manual) PT INR Sodium Potassium Chloride Carbon Dioxide BUN Creatinine Glucose POC Glucose 480 H 455 H > 500 H Calcium NT-Pro-B Natriuret Pep U Epithel Cells (Auto) Digoxin 10/29/18 10/29/18 10/30/18 20:03 21:59 05:58 WBC MCH 25 L RDW 22.0 H Lymph % (Auto) 9.4 L Nolan % (Auto) 9.4 H Lymph # 0.9 L Nolan # 0.9 H Seg Neutrophils % 80.4 H Seg Neuts % (Manual) Lymphocytes % (Manual) Nucleated RBC % Seg Neutrophils # 7.8 H Seg Neutrophils # Man Lymphocytes # (Manual) PT INR Sodium 136 L Potassium Chloride 91.8 L Carbon Dioxide BUN 24 H Creatinine 0.5 L Glucose 390 H POC Glucose 162 H Calcium 7.9 L NT-Pro-B Natriuret Pep U Epithel Cells (Auto) Digoxin 10/30/18 10/30/18 10/30/18 05:58 08:09 12:14 WBC MCH RDW Lymph % (Auto) Nolan % (Auto) Lymph # Nolan # Seg Neutrophils % Seg Neuts % (Manual) Lymphocytes % (Manual) Nucleated RBC % Seg Neutrophils # Seg Neutrophils # Man Lymphocytes # (Manual) PT INR Sodium Potassium Chloride 95.9 L Carbon Dioxide 32 H BUN 23 H Creatinine 0.4 L Glucose 130 H POC Glucose 106 H 168 H Calcium 8.0 L NT-Pro-B Natriuret Pep U Epithel Cells (Auto) Digoxin Allied health notes reviewed: nursing
[2018-10-30] MEDS: LANOXIN PO SCH (17:26)
[2018-10-30] MEDS: ATIVAN PO PRN (20:18)
[2018-10-30] MEDS: AMBIEN PO PRN (22:10)
[2018-10-30] MEDS: LANTUS SUB-Q SCH (22:11)
[2018-10-31] MEDS: NORCO 5/325 PO PRN (05:15)
[2018-10-31] MEDS: LOPRESSOR PO SCH (05:19)
[2018-10-31] MEDS: LASIX IV SCH (05:22)
[2018-10-31] MEDS: BROVANA NEBU IH SCH (07:30)
[2018-10-31] MEDS: PULMICORT IH SCH (07:30)
[2018-10-31] MEDS: HumaLOG SUB-Q SCH ×2 (08:14→08:32)
[2018-10-31 08:25] VITALS: BP 144/83
[2018-10-31] MEDS: NEURONTIN PO SCH (08:31)
[2018-10-31] MEDS: MORPHINE IV PRN (08:31)
--- NOTE | 2018-10-31 08:44 | Progress Note ---
Assessment and Plan - Patient Problems (1) Peripheral vascular disease due to secondary diabetes Current Visit: Yes Status: Acute (2) Rapid atrial fibrillation Current Visit: Yes Status: Acute (3) CHF (congestive heart failure) Current Visit: Yes Status: Chronic Qualifiers: Subjective Date of service: 10/31/18 Principal diagnosis: COPD; Morbid obesity; CAD; CMOP (EF 30-35%); Persistent A- fib/flutter; PAD Interval history: Patient seen and examined , chart reviewed , consultants notes reviewed .Patient denied any new complaints beside ongoing pain in the left lower extremity , vitals stable ,no fever reported Objective - Constitutional Vitals: Vital Signs - 12hr 10/30/18 10/30/18 10/30/18 21:07 21:15 21:30 Temperature Pulse Rate Pulse Rate [ 85 101 H Anterior Bilateral Throughout] Pulse Rate [ 106 H Apical] Pulse Rate [ 106 H Right Radial] Respiratory 20 Rate Respiratory 20 20 Rate [Anterior Bilateral Throughout] Blood Pressure Blood Pressure [Left] O2 Sat by Pulse 97 96 Oximetry 10/30/18 10/31/18 10/31/18 22:10 00:22 05:03 Temperature 98.5 F 97.6 F Pulse Rate 97 H 86 94 H Pulse Rate [ Anterior Bilateral Throughout] Pulse Rate [ Apical] Pulse Rate [ Right Radial] Respiratory 20 22 Rate Respiratory Rate [Anterior Bilateral Throughout] Blood Pressure 103/64 135/72 158/104 Blood Pressure [Left] O2 Sat by Pulse 100 100 Oximetry 10/31/18 10/31/18 10/31/18 05:19 06:00 08:24 Temperature Pulse Rate 92 H 92 H 88 Pulse Rate [ Anterior Bilateral Throughout] Pulse Rate [ Apical] Pulse Rate [ Right Radial] Respiratory Rate Respiratory Rate [Anterior Bilateral Throughout] Blood Pressure 142/80 Blood Pressure 144/83 [Left] O2 Sat by Pulse Oximetry General appearance: Present: no acute distress - EENT Eyes: PERRL ENT: hearing intact - Neck Neck: supple, normal ROM - Respiratory Respiratory effort: normal Respiratory: bilateral: diminished - Cardiovascular Rhythm: irregularly irregular Extremity abnormal: edema - Gastrointestinal General gastrointestinal: Present: non-tender, non-distended, normal bowel sounds - Integumentary Integumentary: warm, erythema - Musculoskeletal Musculoskeletal: strength equal bilaterally - Neurologic Neurologic: CNII-XII intact - Psychiatric Psychiatric: appropriate mood/affect - Labs CBC & Chem 7: 10/30/18 05:58 10/30/18 05:58 Labs: Abnormal lab results 10/30/18 10/30/18 10/30/18 Range/Units 12:14 17:16 21:46 POC Glucose 168 H 259 H 389 H (70-105) 10/31/18 Range/Units 07:59 POC Glucose 154 H (70-105)
--- NOTE | 2018-10-31 09:07 | Discharge Summary ---
Providers - Providers Date of Admission: 10/16/18 15:30 Date of discharge: 10/31/18 Attending physician: SANTY LYNCH 10/16/18 18:47 Consult to Wound/ET Nurse [CONS] Routine Reason For Exam: wound eval 10/17/18 14:53 Consult to Physician [CONS] Routine Comment: Consulting Provider: CAMERON PALENCIA Physician Instructions: PLEASE EVALUATE LEFT LATERAL FOOT Reason For Exam: POSSIBLE DEBRIDMENT LEFT FOOT 10/20/18 16:12 Consult to Cardiology [CONS] Urgent Consulting Provider: DUTCH CHEEMA Reason For Exam: Rapid A-fib 10/20/18 20:03 Consult to Physician [CONS] Routine Comment: Consulting Provider: CASSANDRA IRWIN Physician Instructions: Reason For Exam: hypoxia, needs clearance for beriatric therapy. 10/24/18 10:01 Consult to Physician [CONS] Urgent Comment: Consulting Provider: KORI BURNS Physician Instructions: PLEASE REVIEW ARTERIAL DOPPLERS Reason For Exam: EVALUATE ABNORMAL VASCULAR STUDIES 10/28/18 21:31 Consult to Physician [CONS] Routine Comment: Consulting Provider: JOEL MERCADO Physician Instructions: Reason For Exam: large anal/rectal Warts. Primary care physician: RADAR REPAIRER Hospitalization Reason for admission: nonhealing wound of the left lower extremities Condition: Stable Pertinent studies: CT angiogram of the left lower extremity showing extensive atherosclerotic plaque noted left exudative versus and occlusion of the superficial femoral artery on the left Hospital course: 58-year-old female patient of Dr. Lynch for whom Lenard covering admitted due to nonhealing wound of the left lower extremity as well as atrial fibrillation with rapid ventricular response, patient was admitted and evaluated for the nonhealing wound, patient had CT angiogram of the left lower extremity which showed extensive atherosclerosis plaque of the lower extremity vessels as well as occlusion of the superficial femoral artery. Patient was taken to the operating room and had debridement angiogram and revascularization of the left lower extremity performed by Dr. Vega patient is now status post surgery stable reported. Patient was evaluated by media associate for the ongoing atrial fibrillation as well as history of congestive heart failure with low ejection fraction approximately 31% patient was evaluated and currently on digoxin as well as beta jesús and anticoagulation is not controlled ventricular rate patient. Patient is also on Eliquis which is on hold now with plan to restart Eliquis in the next few days postoperatively. Patient has no new complaints besides ongoing pain in the left lower extremity site of surgery denied chest pain and no shortness of breath and no fever reported by nursing staff. Plan is to discharge patient home with home health and plan to continue home wound care until patient is able to make it to the wound care clinic with appointment set for next . Patient is asked to follow up with cardiology and also with her primary care physician Disposition: DC/TX- HOME UNDER HOME HLTH - Discharge Diagnoses (1) Peripheral vascular disease due to secondary diabetes Status: Chronic (2) Rapid atrial fibrillation Status: Chronic Comment: Patient to resume Eliquis on November 02 Continent findings of digoxin and beta jesús as ordered (3) CHF (congestive heart failure) Status: Chronic Qualifiers: Heart failure type: diastolic Qualified Code(s): I50.32 - Chronic diastolic (congestive) heart failure Comment: Continue all current medications including diuretics and beta jesús and Bentley inhibitors and follow-up with cardiology and also with primary care physician Core Measure Documentation - Palliative Care Palliative Care/ Comfort Measures: Not Applicable - Core Measures Any of the following diagnoses?: heart failure - Heart Failure Discharge Requirements BENTLEY/ARB for LVSD if EF <40%: Yes Beta jesús at discharge: Yes Exam - Physical Exam Narrative exam: GENERAL: Patient seen sitting up in bed in no acute distress HEENT: [Head examination showed normocephalic. Patient is not pale, not jaundiced, and not cyanosed.] [Mucous membrane is moist, pharynx is clear, no exudates or hemorrhage. Dentition is normal.] NECK: [Supple. Neck showed good range of motion. There is no adenopathy noted. No jugular venous distention and no thyromegaly.] [Neck auscultation showed no carotid bruit.] CHEST/LUNGS: [Poor air exchange bilaterally, scattered expiratory wheeze, reduced air exchange bibasilarly. Chest percussion normal, symmetrical chest movements with no chest wall tenderness.] HEART/CARDIOVASCULAR: [Irregularly irregular rhythm.] ABDOMEN: [Abdomen is soft, nontender. Patient has normal bowel sounds. There is no abdominal distention. Liver and spleen not palpably enlarged.] SKIN: [There is no rash. There is no edema. There is no diaphoresis.] NEURO: [The patient is awake, alert, and oriented. The patient is cooperative. The patient has no focal neurologic deficits. Cranial nerves 2-12 grossly normal, power is 5/5 in all the extremities tested. The patient has normal speech and gait.] MUSCULOSKELETAL: [There is no tenderness or deformity. There is no limitation range of motion. There is no evidence of acute injury.] EXTREMITIES: [Erythema of the lower extremities bilaterally, superficial ulcers noted in the left lower extremity. Previous transmetatarsal amputation of the left foot with dressing in place, poor peripheral pulses bilaterally, +1 pitting edema of the left lower extremity up to mid leg, bilateral stasis dermatitis of the lower extremities.] - Constitutional Vitals: Temp Pulse Resp BP Pulse Ox 97.6 F 88 22 144/83 100 10/31/18 05:03 10/31/18 08:24 10/31/18 05:03 10/31/18 08:24 10/31/18 05:03 Plan Activity: advance as tolerated, fall precautions Weight Bearing Status: Weight Bear as Tolerated Diet: diabetic Wound: change dressing, per wound nurse instructions Special Instructions: record blood sugar diary, follow up in rehab, home health RN ( patient advised to follow up at the Wound Care clinic as scheduled on home health nurse to arrange for wound care at least 2 occasions prior to appointment intact wound care clinic on next week) Follow up with: PRIMARY CARE, [Primary Care Provider] - 7 Days Prescriptions: HYDROcodone/APAP 5-325 [Nicholson 5-325 mg TAB] 1 each PO Q6H PRN #20 tablet PRN Reason: Pain, Moderate (4-6)
--- NOTE | 2018-10-31 09:25 | Progress Note ---
Assessment and Plan s/p left foot debridement Permanent Atrial fib/flutter on metoprolol and digoxin on low dose eliquis for oral anticoagulation therapy. Currently on hold following LE revascularization procedure Ischemic cardiomyopathy with EF 30-35% CAD s/p 3v CABG in 2013 Cor Pulmonale COPD Severe pulmonary hypertension Tobacco abuse Htn DM PAD s/p TMA Chronic non-compliance with medical therapy and medical follow up Recommend: Continue medical therapy for permanent atrial fibrillation, ischemic cardiomyopathy and coronary artery disease. Resume eliquis therapy 5/3 per Vascular. Ok to proceed with hyperbaric therapy as an outpatient. Subjective Date of service: 10/31/18 Principal diagnosis: COPD; Morbid obesity; CAD; CMOP (EF 30-35%); Persistent A- fib/flutter; PAD Interval history: Patient is resting comfortably. She has no complaints. Afib with a well controlled ventricular rate on telemetry. Objective Vital Signs Temp Pulse Pulse Pulse Pulse Resp Resp 10/31/18 08:24 88 10/31/18 06:00 92 H 10/31/18 05:19 92 H 10/31/18 05:03 97.6 F 94 H 22 10/31/18 00:22 98.5 F 86 20 10/30/18 22:10 97 H 10/30/18 21:30 106 H 106 H 20 10/30/18 21:15 101 H 20 10/30/18 21:07 85 20 10/30/18 20:17 97.6 F 87 20 10/30/18 17:26 84 10/30/18 17:13 98.0 F 91 H 18 10/30/18 13:08 78 10/30/18 12:16 98.2 F 64 18 10/30/18 10:00 74 20 10/30/18 09:45 73 10/30/18 09:26 76 18 BP BP Pulse Ox 10/31/18 08:24 144/83 10/31/18 06:00 10/31/18 05:19 142/80 10/31/18 05:03 158/104 100 10/31/18 00:22 135/72 100 10/30/18 22:10 103/64 10/30/18 21:30 96 10/30/18 21:15 10/30/18 21:07 97 10/30/18 20:17 129/70 95 10/30/18 17:26 125/72 10/30/18 17:13 122/75 95 10/30/18 13:08 126/65 10/30/18 12:16 108/68 100 10/30/18 10:00 95 10/30/18 09:45 124/68 10/30/18 09:26 - Physical Examination General: No Apparent Distress, Other (morbidly obese) HEENT: Positive: PERRL Neck: Positive: trachea midline Cardiac: Positive: irregularly irregular Lungs: Positive: Decreased Breath Sounds Neuro: Positive: Grossly Intact Abdomen: Positive: Soft - Allied health notes Allied health notes reviewed: nursing
--- NOTE | 2018-10-31 09:35 | Progress Note ---
Assessment and Plan h/o COPD Tobacco use disorder Morbid obesity Coronary artery disease s/p coronary bypass in 2014, Ischemic cardiomyopathy LVEF 30-35% Persistent atrial flutter fibrillation Peripheral arterial disease, Foot ulcers s/p debridement - No absolute pulmonary complication to hyperbaric oxygen therapy acutely; H/o COPD but not active and no Pneumothorax - continue schedule Brovana and Pulmicort for COPD - continue prn albuterol - continue supplemental oxygen t keep O2 sat>90% - taper systemic steroids to prednisone 20 mg qd - continue anticoagulation while monitoring H&H - Smoking cessation counselling done prior and at each visit - Needs out patient sleep study - Analgesia, limit narcotics - continue tight glycemic control, to help promote wound healing (BG 140 - 180 mg/dl) - PT/OT/mobility as tolerated - Cardioprotective measures - Chronic home medications - Weight loss and life style modifications - Continue supportive care - Monitor hyponatremia - contact isolation ... re-evaluate in am & prn Subjective Date of service: 10/31/18 Principal diagnosis: COPD; Morbid obesity; CAD; CMOP (EF 30-35%); Persistent A- fib/flutter; PAD Interval history: Patient is seen today for: COPD; Morbid obesity; Coronary artery disease s/p coronary bypass in 2013; Ischemic cardiomyopathy LVEF 30-35%; Persistent atrial flutter fibrillation; Peripheral arterial disease; Foot ulcers s/p debridement Seen and examined at bedside; 24-hour events reviewed; nursing and respiratory care staff consulted; no adverse overnight events reported to me; resting peacefully in bed; feels better overall; No N/V/F/C; denies acute chest pains or palpitations Objective Vital Signs - 12hr 10/30/18 10/31/18 10/31/18 22:10 00:22 05:03 Temperature 98.5 F 97.6 F Pulse Rate 97 H 86 94 H Respiratory 20 22 Rate Blood Pressure 103/64 135/72 158/104 Blood Pressure [Left] O2 Sat by Pulse 100 100 Oximetry 10/31/18 10/31/18 10/31/18: 06:00 08:24 Temperature Pulse Rate 92 H 92 H 88 Respiratory Rate Blood Pressure 142/80 Blood Pressure 144/83 [Left] O2 Sat by Pulse Oximetry Constitutional: alert, other (elderly obese CF normocephalic and with mildly increased resp effort at rest) Eyes: non-icteric ENT: oropharynx moist, other (Mallampati 3) Neck: supple, no JVD, other (large neck circumference) Effort: mildly labored Ascultation: Bilateral: diminished breath sounds, rhonchi, other (prolonged exp phase) Percussion: Bilateral: not dull Cardiovascular: regular rate and rhythm Gastrointestinal: normoactive bowel sounds, soft, non-tender, non-distended Integumentary: rash Extremities: no cyanosis, pink and warm, edema, other (left foot ulcer s/p debridement) Neurologic: normal mental status, non-focal exam, pupils equal and round, CN II- XII normal, motor strength normal and Psychiatric: other (suspect schizoaffective / psych disorder) CBC and BMP: 10/30/18 05:58 10/30/18 05:58 ABG, PT/INR, D-dimer: ABG POC ABG pH 7.418 (7.35-7.45) 10/22/18 13:46 POC ABG pCO2 39.0 (35-45) 10/22/18 13:46 POC ABG pO2 80 (80-105) 10/22/18 13:46 POC ABG HCO3 25.2 (22-26 mml/L) 10/22/18 13:46 POC ABG Total CO2 26 (23-27mmol/L) 10/22/18 13:46 POC ABG O2 Sat 96 10/22/18 13:46 PT/INR, D-dimer PT 16.2 Sec. (12.2-14.9) H 10/25/18 05:32 INR 1.22 (0.87-1.13) H 10/25/18 05:32 Abnormal lab findings: Abnormal Labs 10/16/18 10/16/18 10/16/18 14:39 14:39 14:39 WBC 16.6 H MCH 26 L RDW 21.6 H Lymph % (Auto) 10.6 L [place] % (Auto) Lymph # [place] # 0.9 H Seg Neutrophils % 82.9 H Seg Neuts % (Manual) Lymphocytes % (Manual) Nucleated RBC % Seg Neutrophils # 13.8 H Seg Neutrophils # Man Lymphocytes # (Manual) PT 16.6 H INR 1.26 H Sodium Potassium Chloride 107.9 H Carbon Dioxide 21 L BUN Creatinine 0.5 L Glucose 182 H POC Glucose Calcium 7.6 L NT-Pro-B Natriuret Pep U Epithel Cells (Auto) Digoxin 10/16/18 10/16/18 10/16/18 14:39 17:55 19:30 WBC MCH RDW Lymph % (Auto) [place] % (Auto) Lymph # [place] # Seg Neutrophils % Seg Neuts % (Manual) Lymphocytes % (Manual) Nucleated RBC % Seg Neutrophils # Seg Neutrophils # Man Lymphocytes # (Manual) PT INR Sodium Potassium Chloride Carbon Dioxide BUN Creatinine Glucose POC Glucose 164 H Calcium NT-Pro-B Natriuret Pep 4638 H U Epithel Cells (Auto) 15.0 H Digoxin 10/16/18 10/17/18 10/17/18 21:59 05:57 05:57 WBC 17.5 H MCH 25 L RDW 22.3 H Lymph % (Auto) [place] % (Auto) Lymph # [place] # Seg Neutrophils % Seg Neuts % (Manual) 91.0 H Lymphocytes % (Manual) 7.0 L Nucleated RBC % 1.0 H Seg Neutrophils # Seg Neutrophils # Man 15.9 H Lymphocytes # (Manual) PT INR Sodium Potassium Chloride Carbon Dioxide BUN 18 H Creatinine 0.6 L Glucose 197 H POC Glucose 174 H Calcium 7.8 L NT-Pro-B Natriuret Pep U Epithel Cells (Auto) Digoxin 10/17/18 10/17/18 10/17/18 07:49 12:03 16:59 WBC MCH RDW Lymph % (Auto) [place] % (Auto) Lymph # [place] # Seg Neutrophils % Seg Neuts % (Manual) Lymphocytes % (Manual) Nucleated RBC % Seg Neutrophils # Seg Neutrophils # Man Lymphocytes # (Manual) PT INR Sodium Potassium Chloride Carbon Dioxide BUN Creatinine Glucose POC Glucose 195 H 308 H 307 H Calcium NT-Pro-B Natriuret Pep U Epithel Cells (Auto) Digoxin 10/17/18 10/18/18 10/18/18 21:30 08:20 11:57 WBC MCH RDW Lymph % (Auto) [place] % (Auto) Lymph # [place] # Seg Neutrophils % Seg Neuts % (Manual) Lymphocytes % (Manual) Nucleated RBC % Seg Neutrophils # Seg Neutrophils # Man Lymphocytes # (Manual) PT INR Sodium Potassium Chloride Carbon Dioxide BUN Creatinine Glucose POC Glucose 344 H 322 H 302 H Calcium NT-Pro-B Natriuret Pep U Epithel Cells (Auto) Digoxin 10/18/18 10/18/18 10/18/18 17:26 18:00 22:14 WBC MCH RDW Lymph % (Auto) [place] % (Auto) Lymph # [place] # Seg Neutrophils % Seg Neuts % (Manual) Lymphocytes % (Manual) Nucleated RBC % Seg Neutrophils # Seg Neutrophils # Man Lymphocytes # (Manual) PT INR Sodium Potassium Chloride Carbon Dioxide BUN Creatinine Glucose POC Glucose 269 H 290 H 340 H Calcium NT-Pro-B Natriuret Pep U Epithel Cells (Auto) Digoxin 10/19/18 10/19/18 10/19/18 07:38 11:46 17:31 WBC MCH RDW Lymph % (Auto) [place] % (Auto) Lymph # [place] # Seg Neutrophils % Seg Neuts % (Manual) Lymphocytes % (Manual) Nucleated RBC % Seg Neutrophils # Seg Neutrophils # Man Lymphocytes # (Manual) PT INR Sodium Potassium Chloride Carbon Dioxide BUN Creatinine Glucose POC Glucose 304 H 234 H 319 H Calcium NT-Pro-B Natriuret Pep U Epithel Cells (Auto) Digoxin 10/19/18 10/20/18 10/20/18 21:22 06:00 06:00 WBC 21.5 H MCH 25 L RDW 21.4 H Lymph % (Auto) [place] % (Auto) Lymph # [place] # Seg Neutrophils % Seg Neuts % (Manual) 98.0 H Lymphocytes % (Manual) 1.0 L Nucleated RBC % Seg Neutrophils # Seg Neutrophils # Man 21.1 H Lymphocytes # (Manual) 0.2 L PT INR Sodium Potassium Chloride Carbon Dioxide BUN 26 H Creatinine 0.4 L Glucose 177 H POC Glucose 330 H Calcium 8.2 L NT-Pro-B Natriuret Pep U Epithel Cells (Auto) Digoxin 10/20/18 10/20/18 10/21/18 11:41 15:16 08:23 WBC MCH RDW Lymph % (Auto) [place] % (Auto) Lymph # [place] # Seg Neutrophils % Seg Neuts % (Manual) Lymphocytes % (Manual) Nucleated RBC % Seg Neutrophils # Seg Neutrophils # Man Lymphocytes # (Manual) PT INR Sodium Potassium Chloride Carbon Dioxide BUN Creatinine Glucose POC Glucose 178 H 178 H 237 H Calcium NT-Pro-B Natriuret Pep U Epithel Cells (Auto) Digoxin 10/21/18 10/21/18 10/21/18 12:02 21:04 23:27 WBC 11.9 H MCH 25 L RDW 21.4 H Lymph % (Auto) 5.9 L [place] % (Auto) Lymph # 0.7 L [place] # Seg Neutrophils % 89.2 H Seg Neuts % (Manual) Lymphocytes % (Manual) Nucleated RBC % Seg Neutrophils # 10.6 H Seg Neutrophils # Man Lymphocytes # (Manual) PT INR Sodium Potassium Chloride Carbon Dioxide BUN Creatinine Glucose POC Glucose 204 H 188 H Calcium NT-Pro-B Natriuret Pep U Epithel Cells (Auto) Digoxin 10/22/18 10/22/18 10/22/18 08:04 09:44 09:44 WBC 15.0 H MCH 26 L RDW 21.2 H Lymph % (Auto) [place] % (Auto) Lymph # [place] # Seg Neutrophils % Seg Neuts % (Manual) 92.0 H Lymphocytes % (Manual) 6.0 L Nucleated RBC % Seg Neutrophils # Seg Neutrophils # Man 13.8 H Lymphocytes # (Manual) 0.9 L PT INR Sodium 136 L Potassium Chloride 96.4 L Carbon Dioxide BUN 42 H Creatinine Glucose 251 H POC Glucose 242 H Calcium 7.9 L NT-Pro-B Natriuret Pep U Epithel Cells (Auto) Digoxin 10/22/18 10/22/18 10/22/18 12:30 15:26 18:06 WBC MCH RDW Lymph % (Auto) [place] % (Auto) Lymph # [place] # Seg Neutrophils % Seg Neuts % (Manual) Lymphocytes % (Manual) Nucleated RBC % Seg Neutrophils # Seg Neutrophils # Man Lymphocytes # (Manual) PT INR Sodium 133 L Potassium 5.8 H D Chloride 95.3 L Carbon Dioxide BUN 41 H Creatinine 0.6 L Glucose 322 H POC Glucose 208 H 218 H Calcium 8.0 L NT-Pro-B Natriuret Pep U Epithel Cells (Auto) Digoxin 10/23/18 10/23/18 10/23/18 07:32 10:16 12:25 WBC MCH RDW Lymph % (Auto) [place] % (Auto) Lymph # [place] # Seg Neutrophils % Seg Neuts % (Manual) Lymphocytes % (Manual) Nucleated RBC % Seg Neutrophils # Seg Neutrophils # Man Lymphocytes # (Manual) PT INR Sodium 146 H D Potassium 5.7 H Chloride 117.7 H Carbon Dioxide BUN 39 H Creatinine 0.5 L Glucose 299 H POC Glucose 125 H 204 H Calcium 7.9 L NT-Pro-B Natriuret Pep U Epithel Cells (Auto) Digoxin 10/23/18 10/23/18 10/24/18 16:00 20:59 08:47 WBC MCH RDW Lymph % (Auto) [place] % (Auto) Lymph # [place] # Seg Neutrophils % Seg Neuts % (Manual) Lymphocytes % (Manual) Nucleated RBC % Seg Neutrophils # Seg Neutrophils # Man Lymphocytes # (Manual) PT INR Sodium Potassium Chloride Carbon Dioxide BUN Creatinine Glucose POC Glucose 277 H 401 H 327 H Calcium NT-Pro-B Natriuret Pep U Epithel Cells (Auto) Digoxin 10/24/18 10/24/18 10/24/18 09:45 09:45 12:31 WBC MCH RDW Lymph % (Auto) [place] % (Auto) Lymph # [place] # Seg Neutrophils % Seg Neuts % (Manual) Lymphocytes % (Manual) Nucleated RBC % Seg Neutrophils # Seg Neutrophils # Man Lymphocytes # (Manual) PT INR Sodium 134 L D Potassium Chloride 93.3 L Carbon Dioxide BUN 30 H Creatinine 0.5 L Glucose 391 H POC Glucose 219 H Calcium 8.0 L NT-Pro-B Natriuret Pep U Epithel Cells (Auto) Digoxin 0.7 L 10/24/18 10/24/18 10/25/18 16:37 21:14 05:32 WBC MCH 25 L RDW 21.2 H Lymph % (Auto) [place] % (Auto) Lymph # [place] # Seg Neutrophils % Seg Neuts % (Manual) 84.0 H Lymphocytes % (Manual) 6.0 L Nucleated RBC % Seg Neutrophils # Seg Neutrophils # Man Lymphocytes # (Manual) 0.5 L PT INR Sodium Potassium Chloride Carbon Dioxide BUN Creatinine Glucose POC Glucose 148 H 355 H Calcium NT-Pro-B Natriuret Pep U Epithel Cells (Auto) Digoxin 10/25/18 10/25/18 10/25/18 05:32 05:32 07:54 WBC MCH RDW Lymph % (Auto) [place] % (Auto) Lymph # [place] # Seg Neutrophils % Seg Neuts % (Manual) Lymphocytes % (Manual) Nucleated RBC % Seg Neutrophils # Seg Neutrophils # Man Lymphocytes # (Manual) PT 16.2 H INR 1.22 H Sodium Potassium Chloride 96.5 L Carbon Dioxide 32 H D BUN 24 H Creatinine 0.6 L Glucose 264 H POC Glucose 233 H Calcium 8.3 L NT-Pro-B Natriuret Pep U Epithel Cells (Auto) Digoxin 10/25/18 10/25/18 10/25/18 13:05 18:48 20:57 WBC MCH RDW Lymph % (Auto) [place] % (Auto) Lymph # [place] # Seg Neutrophils % Seg Neuts % (Manual) Lymphocytes % (Manual) Nucleated RBC % Seg Neutrophils # Seg Neutrophils # Man Lymphocytes # (Manual) PT INR Sodium Potassium Chloride Carbon Dioxide BUN Creatinine Glucose POC Glucose 215 H 384 H 264 H Calcium NT-Pro-B Natriuret Pep U Epithel Cells (Auto) Digoxin 10/26/18 10/26/18 10/26/18 07:59 12:26 16:24 WBC MCH RDW Lymph % (Auto) [place] % (Auto) Lymph # [place] # Seg Neutrophils % Seg Neuts % (Manual) Lymphocytes % (Manual) Nucleated RBC % Seg Neutrophils # Seg Neutrophils # Man Lymphocytes # (Manual) PT INR Sodium Potassium Chloride Carbon Dioxide BUN Creatinine Glucose POC Glucose 270 H 197 H 243 H Calcium NT-Pro-B Natriuret Pep U Epithel Cells (Auto) Digoxin 10/26/18 10/27/18 10/27/18 21:28 06:58 06:58 WBC 11.2 H MCH 25 L RDW 21.6 H Lymph % (Auto) [place] % (Auto) 8.4 H Lymph # [place] # 0.9 H Seg Neutrophils % 75.0 H Seg Neuts % (Manual) 80.0 H Lymphocytes % (Manual) 8.0 L Nucleated RBC % Seg Neutrophils # 8.4 H Seg Neutrophils # Man 9.0 H Lymphocytes # (Manual) 0.9 L PT INR Sodium Potassium Chloride Carbon Dioxide 32 H BUN 34 H Creatinine 0.5 L Glucose POC Glucose 115 H Calcium 7.6 L NT-Pro-B Natriuret Pep U Epithel Cells (Auto) Digoxin 10/27/18 10/27/18 10/27/18 12:03 12:07 16:31 WBC MCH RDW Lymph % (Auto) [place] % (Auto) Lymph # [place] # Seg Neutrophils % Seg Neuts % (Manual) Lymphocytes % (Manual) Nucleated RBC % Seg Neutrophils # Seg Neutrophils # Man Lymphocytes # (Manual) PT INR Sodium Potassium Chloride Carbon Dioxide BUN Creatinine Glucose POC Glucose 45 L 40 L 230 H Calcium NT-Pro-B Natriuret Pep U Epithel Cells (Auto) Digoxin 10/27/18 10/28/18 10/28/18 21:24 06:04 06:04 WBC 11.9 H MCH 25 L RDW 21.7 H Lymph % (Auto) [place] % (Auto) Lymph # [place] # Seg Neutrophils % Seg Neuts % (Manual) 90.0 H Lymphocytes % (Manual) 4.0 L Nucleated RBC % Seg Neutrophils # Seg Neutrophils # Man 10.7 H Lymphocytes # (Manual) 0.5 L PT INR Sodium Potassium Chloride 94.1 L Carbon Dioxide 36 H BUN 35 H Creatinine 0.4 L Glucose POC Glucose 300 H Calcium 7.9 L NT-Pro-B Natriuret Pep U Epithel Cells (Auto) Digoxin 10/28/18 10/28/18 10/29/18 16:57 20:26 07:16 WBC 11.7 H MCH 25 L RDW 21.9 H Lymph % (Auto) 8.9 L [place] % (Auto) Lymph # 1.0 L [place] # Seg Neutrophils % 83.3 H Seg Neuts % (Manual) Lymphocytes % (Manual) Nucleated RBC % Seg Neutrophils # 9.7 H Seg Neutrophils # Man Lymphocytes # (Manual) PT INR Sodium Potassium Chloride Carbon Dioxide BUN Creatinine Glucose POC Glucose 191 H 147 H Calcium NT-Pro-B Natriuret Pep U Epithel Cells (Auto) Digoxin 10/29/18 10/29/18 10/29/18 07:16 11:43 12:56 WBC MCH RDW Lymph % (Auto) [place] % (Auto) Lymph # [place] # Seg Neutrophils % Seg Neuts % (Manual) Lymphocytes % (Manual) Nucleated RBC % Seg Neutrophils # Seg Neutrophils # Man Lymphocytes # (Manual) PT INR Sodium Potassium Chloride 93.6 L Carbon Dioxide 33 H BUN 27 H Creatinine 0.4 L Glucose 114 H POC Glucose 254 H 264 H Calcium 8.2 L NT-Pro-B Natriuret Pep U Epithel Cells (Auto) Digoxin 10/29/18 10/29/18 10/29/18 16:54 17:47 18:36 WBC MCH RDW Lymph % (Auto) [place] % (Auto) Lymph # [place] # Seg Neutrophils % Seg Neuts % (Manual) Lymphocytes % (Manual) Nucleated RBC % Seg Neutrophils # Seg Neutrophils # Man Lymphocytes # (Manual) PT INR Sodium Potassium Chloride Carbon Dioxide BUN Creatinine Glucose POC Glucose 480 H 455 H > 500 H Calcium NT-Pro-B Natriuret Pep U Epithel Cells (Auto) Digoxin 10/29/18 10/29/18 10/30/18 20:03 21:59 05:58 WBC MCH 25 L RDW 22.0 H Lymph % (Auto) 9.4 L [place] % (Auto) 9.4 H Lymph # 0.9 L [place] # 0.9 H Seg Neutrophils % 80.4 H Seg Neuts % (Manual) Lymphocytes % (Manual) Nucleated RBC % Seg Neutrophils # 7.8 H Seg Neutrophils # Man Lymphocytes # (Manual) PT INR Sodium 136 L Potassium Chloride 91.8 L Carbon Dioxide BUN 24 H Creatinine 0.5 L Glucose 390 H POC Glucose 162 H Calcium 7.9 L NT-Pro-B Natriuret Pep U Epithel Cells (Auto) Digoxin 10/30/18 10/30/18 10/30/18 05:58 08:09 12:14 WBC MCH RDW Lymph % (Auto) [place] % (Auto) Lymph # [place] # Seg Neutrophils % Seg Neuts % (Manual) Lymphocytes % (Manual) Nucleated RBC % Seg Neutrophils # Seg Neutrophils # Man Lymphocytes # (Manual) PT INR Sodium Potassium Chloride 95.9 L Carbon Dioxide 32 H BUN 23 H Creatinine 0.4 L Glucose 130 H POC Glucose 106 H 168 H Calcium 8.0 L NT-Pro-B Natriuret Pep U Epithel Cells (Auto) Digoxin 10/30/18 10/30/18 10/31/18 17:16 21:46 07:59 WBC MCH RDW Lymph % (Auto) [place] % (Auto) Lymph # [place] # Seg Neutrophils % Seg Neuts % (Manual) Lymphocytes % (Manual) Nucleated RBC % Seg Neutrophils # Seg Neutrophils # Man Lymphocytes # (Manual) PT INR Sodium Potassium Chloride Carbon Dioxide BUN Creatinine Glucose POC Glucose 259 H 389 H 154 H Calcium NT-Pro-B Natriuret Pep U Epithel Cells (Auto) Digoxin Allied health notes reviewed: nursing
[2018-10-31] MEDS ORDERED: DELTASONE PO SCH (10:00)
[2018-10-31] MEDS: ZESTRIL PO SCH (10:07)
[2018-10-31] MEDS: BABY ASPIRIN PO SCH (10:07)
[2018-10-31] MEDS: DAKIN'S HALF STRENGTH TP SCH (10:07)
== END 2018-10-31 11:01 | disposition home health service (06) | DRG 252 ==
LOC: ED 14:09 → 4A 15:30 → 3A 10-18 13:49 → 4A 10-20 16:58
PROVIDERS: ADMIT Internal Medicine Hematology & Oncology; ATTEND Internal Medicine Hematology & Oncology
PROC: 0JBR0ZZ Excision of Left Foot Subcutaneous Tissue and Fascia, Open Approach (ICD-10-PCS; principal; 2018-10-20)
PROC: 4A033R1 Measurement of Arterial Saturation, Peripheral, Percutaneous Approach (ICD-10-PCS; 2018-10-22)
PROC: 04CL3ZZ Extirpation of Matter from Left Femoral Artery, Percutaneous Approach (ICD-10-PCS; 2018-10-28)
PROC: 047L3Z1 Dilation of Left Femoral Artery using Drug-Coated Balloon, Percutaneous Approach (ICD-10-PCS; 2018-10-28)
PROC: B41D1ZZ Fluoroscopy of Aorta and Bilateral Lower Extremity Arteries using Low Osmolar Contrast (ICD-10-PCS; 2018-10-28)
DX: E11.52 Type 2 diabetes mellitus with diabetic peripheral angiopathy with gangrene (principal); I50.43 Acute on chronic combined systolic (congestive) and diastolic (congestive) heart failure; L03.116 Cellulitis of left lower limb; Z68.41 Body mass index [BMI] 40.0-44.9, adult; I48.1 Persistent atrial fibrillation; J44.1 Chronic obstructive pulmonary disease with (acute) exacerbation; I48.92 Unspecified atrial flutter; J96.10 Chronic respiratory failure, unspecified whether with hypoxia or hypercapnia; I70.262 Atherosclerosis of native arteries of extremities with gangrene, left leg; E11.621 Type 2 diabetes mellitus with foot ulcer; L97.522 Non-pressure chronic ulcer of other part of left foot with fat layer exposed; E11.65 Type 2 diabetes mellitus with hyperglycemia; I11.0 Hypertensive heart disease with heart failure; E11.40 Type 2 diabetes mellitus with diabetic neuropathy, unspecified; I25.10 Atherosclerotic heart disease of native coronary artery without angina pectoris; T38.0X5A Adverse effect of glucocorticoids and synthetic analogues, initial encounter; G89.29 Other chronic pain; E66.01 Morbid (severe) obesity due to excess calories; I25.5 Ischemic cardiomyopathy; I27.20 Pulmonary hypertension, unspecified; Y92.89 Other specified places as the place of occurrence of the external cause; Z79.4 Long term (current) use of insulin; Z95.1 Presence of aortocoronary bypass graft; Z89.422 Acquired absence of other left toe(s); Z87.891 Personal history of nicotine dependence; Z89.412 Acquired absence of left great toe; Z89.411 Acquired absence of right great toe; Z86.73 Personal history of transient ischemic attack (TIA), and cerebral infarction without residual deficits; Z88.0 Allergy status to penicillin
CPT/HCPCS: 36415; 36600; 37225; 71045; 75635; 76937; 80048; 80162; 81001; 82803; 82962; 83880; 84484; 85007; 85025; 85610; 85730; 86592; 87040; 87076; 87116; 87186; 87806; 93005; 93010; 93925; 94640; 94760; G0378; A4217; A6260; A9270-GY; C1714; C1725; C1769; C1884; C1887; C2623; J0696; J1160; J1170; J1644; J1815; J1940; J2250; J2270; J2405; J2704; J2920; J3010; J7030; J7512; Q9967

== ENCOUNTER 2019-01-27 13:50 | Inpatient (IN) | payer MEDICAID ==
[2019-01-28] MEDS: NEURONTIN PO SCH
[2019-01-28] MEDS ORDERED: D50W (25GM) Syringe IV PRN (17:05)
[2019-01-28] MEDS ORDERED: DULCOLAX PR PRN (17:47)
[2019-01-28] MEDS ORDERED: APRESOLINE PO PRN (17:47)
[2019-01-28] MEDS ORDERED: VANCOMYCIN/NS 1 GM/250 ML 1 GM/250 ML BAG IV SCH (18:00)
[2019-01-28] MEDS ORDERED: LANTUS SUB-Q SCH (21:00)
[2019-01-28] MEDS: DUONEB *Not for PRN Use IH SCH (21:07)
[2019-01-28 21:11] LABS: BUN/Creatinine Ratio 65; Blood Urea Nitrogen 39 mg/dL (7-17); Calcium 8.1 mg/dL (8.4-10.2); Hemolysis Index 1
[2019-01-28] MEDS: LASIX PO SCH (22:00)
[2019-01-28] MEDS: VANCOMYCIN 1,750 MG in NACL 0.9% 500 ML 500 ML IV ONE ×2 (22:00→23:30)
[2019-01-28] MEDS: PERCOCET 5/325 PO PRN (22:07)
[2019-01-28] MEDS: ZINC SULFATE PO SCH (22:07)
[2019-01-28] MEDS: ENTRESTO 24 - 26 MG PO SCH (22:07)
[2019-01-28] MEDS: XANAX PO PRN (22:08)
[2019-01-28] MEDS: CORDARONE PO SCH (22:08)
[2019-01-28] MEDS: VITAMIN C PO SCH (22:09)
[2019-01-29] MEDS: LEVAQUIN PO SCH (04:00)
[2019-01-29] MEDS: PERCOCET 5/325 PO PRN ×3 (04:33→23:07)
[2019-01-29 05:34] LABS: Basophils % (Auto) 0.1 % (0.0-1.8); Hematocrit 33.8 % (30.3-42.9); Hemoglobin 10.4 gm/dl (10.1-14.3); Lymphocytes # (Auto) 0.7 K/mm3 (1.2-5.4); Lymphocytes % (Auto) 7.2 % (13.4-35.0); Mean Corpuscular HGB Conc 31 % (30-34); Mean Corpuscular Volume 78 fl (79-97); Monocytes # (Auto) 0.5 K/mm3 (0.0-0.8); Platelet Count 123 K/mm3 (140-440); Red Blood Count 4.36 M/mm3 (3.65-5.03)
[2019-01-29 05:40] LABS: Red Cell Distribution Width 21.6 % (13.2-15.2)
[2019-01-29 06:01] LABS: Alanine Aminotransferase 19 units/L (7-56); Albumin 2.9 g/dL (3.9-5); BUN/Creatinine Ratio 62; Blood Urea Nitrogen 37 mg/dL (7-17); Calcium 7.9 mg/dL (8.4-10.2); Hemolysis Index 6
[2019-01-29] MEDS ORDERED: LOVENOX SUB-Q SCH (08:00)
[2019-01-29] MEDS: VITAMIN C PO SCH ×2 (08:00→23:07)
[2019-01-29] MEDS: ENTRESTO 24 - 26 MG PO SCH ×2 (08:00→23:05)
[2019-01-29] MEDS: HALFPRIN EC PO SCH (08:00)
[2019-01-29] MEDS: ZINC SULFATE PO SCH ×2 (08:00→23:07)
[2019-01-29] MEDS: PLAVIX PO SCH (08:00)
[2019-01-29] MEDS: HumaLOG SUB-Q SCH ×5 (08:00→23:26)
[2019-01-29] MEDS: THERAGRAN-M Tab PO SCH (08:03)
[2019-01-29] MEDS: DELTASONE PO SCH (08:03)
[2019-01-29] MEDS: XANAX PO PRN ×3 (08:20→23:07)
[2019-01-29] MEDS: PAXIL PO SCH (09:05)
[2019-01-29] MEDS: TOPROL XL PO SCH (09:05)
[2019-01-29] MEDS: CORDARONE PO SCH ×2 (09:05→23:05)
--- NOTE | 2019-01-29 09:44 | History and Physical Report ---
History of Present Illness Date: 01/29/19 Date of admission: 01/28/19 18:09 Chief Complaint: Left BKA and debility History of present illness: 58-year-old female with recent history of a left BKA revision started to develop extreme pain in the legs and buttocks along with tachycardia. At the ER she was found to have atrial fibrillation with RVR. Her reports she was supposed to be on amiodarone was apparently noncompliant with this. She was started on amiodarone drip. She developed an acute mental status change but workup was negative for any acute changes. She is transferred to the ICU placed on BiPAP with some improvements noted. She developed MRSA bacteremia and was started on vancomycin. On 01/21 she was noted to have a right brachial DVT and was placed on a heparin drip. This was not seen in paperwork that we reviewed prior to admission and she was not transferred on any anticoagulation. There was mention under atrial fibrillation that she was not a good candidate for anticoagulation, however with both atrial fibrillation and a DVT she is at a higher risk for an embolic event. Discussed with the patient risks and benefits and have started her on Eliquis. She continued to have persistent respiratory issues with wheezing and shortness of breath. She was started on Entresto along with IV steroids and is now on oral steroid wean. Unfortunately during her therapy Eval today she was being transferred using a Joana lift and sling and one of the straps to the sling failed resulting in her falling. Fortunately she did not make contact with the ground but did land with her upper torso in the seat of her wheelchair. Therapy quickly called the rest of staff and we all transitioned her back into bed. Equipment has been transferred to [facility] for inspection. Initial x-rays of the C-spine and skull were performed which were negative for any acute changes. X-ray of C- spine was not sufficient in its imaging so CT scan was also performed of the head and C-spine which were also both negative for any acute events. Patient has mild pain at the base of the skull which is improved with an ice pack. We'll continue to monitor her for any further issues and reassess as needed. Fortunately the Eliquis which we have set chosen to place the patient on for her DVT had not been given at the time of the fall. At that point she's been off of her heparin drip since yesterday. After the patient was medically stabilized they were transferred for further rehabilitation. All available medical records have been reviewed. Plan of care was discussed with patient and family. Past History Past Medical History: atrial fib, CAD, COPD (home oxygen), diabetes, DVT, heart failure, hypertension, hyperlipidemia, PVD, stroke, other (Depression/anxiety, anemia) Past Surgical History: CABG, Other (Left BKA, right toe amputations, ) Social history: lives with family, smoking, full code. denies: alcohol abuse, prescription drug abuse, IV drug use Family history: CAD, cancer Medications and Allergies Allergies Allergy/AdvReac Type Severity Reaction Status Date / Time Penicillins Allergy Itching Verified 04/03/18 12:43 Home Medications Medication Instructions Recorded Confirmed Last Taken Type Aspirin [Aspirin BABY CHEW TAB] 81 mg PO DAILY #100 tab.chew 09/07/18 10/16/18 Unknown Rx AtorvaSTATin [Lipitor] 40 mg PO QHS #30 tablet 09/07/18 10/16/18 Unknown Rx Gabapentin [Neurontin] 300 mg PO TID #90 capsule 09/07/18 10/16/18 Unknown Rx Insulin Glargine [Lantus VIAL] 20 units SUB-Q QHS #1 vial 09/07/18 10/16/18 Unknown Rx Ipratropium/Albuterol Sulfate 1 ampul IH QIDRT #120 ampul.neb 09/07/18 10/16/18 Unknown Rx [DUONEB *Not for PRN Use*] Furosemide [Lasix TAB] 40 mg PO BID #60 tablet 10/08/18 10/16/18 Unknown Rx LORazepam [Ativan] 1 mg PO Q4H PRN #14 tablet 10/08/18 10/16/18 Unknown Rx Lisinopril [Prinivil] 2.5 mg PO QDAY 10/16/18 10/16/18 Unknown History ALBUTEROL NEB's [Proventil 0.083% 2.5 mg IH Q4HRT PRN nebu 10/31/18 Unknown Rx NEBS] Arformoterol Nebu [Brovana Nebu] 15 mcg IH Q12HRT ml 10/31/18 Unknown Rx Aspirin [Aspirin BABY CHEW TAB] 81 mg PO DAILY tab.chew 10/31/18 Unknown Rx AtorvaSTATin [Lipitor] 40 mg PO QHS tablet 10/31/18 Unknown Rx Budesonide [Pulmicort Respules] 0.5 mg IH Q12HRT nebu 10/31/18 Unknown Rx Digoxin [Lanoxin] 0.25 mg PO DAILY@1700 tablet 10/31/18 Unknown Rx Gabapentin [Neurontin] 300 mg PO TID capsule 10/31/18 Unknown Rx HYDROcodone/APAP 5-325 [[place] 1 each PO Q6H PRN #20 tablet 10/31/18 Unknown Rx 5-325 mg TAB] Insulin Glargine [Lantus VIAL] 20 units SUB-Q QHS units 10/31/18 Unknown Rx LORazepam [Ativan] 1 mg PO Q4H PRN tablet 10/31/18 Unknown Rx Lisinopril [Zestril TAB] 2.5 mg PO QDAY tablet 10/31/18 Unknown Rx Metoprolol [Lopressor TAB] 50 mg PO Q8HR tablet 10/31/18 Unknown Rx Zolpidem [Ambien] 5 mg PO QHS PRN tablet 10/31/18 Unknown Rx predniSONE [Deltasone] 20 mg PO QDAY tablet 10/31/18 Unknown Rx oxyCODONE /ACETAMINOPHEN [Percocet 1 tab PO Q6HR PRN #15 tablet 11/05/18 Unknown Rx 5/325] Active Meds: Active Medications Albuterol/Ipratropium (Duoneb *Not For Prn Use*) 1 ampul IH TIDRT [facility] Last Admin: 01/28/19 21:07 Dose: 1 ampul Documented by: Alprazolam (Xanax) 0.5 mg PO BID PRN PRN Reason: Anxiety Last Admin: 01/28/19 22:08 Dose: 0.5 mg Documented by: Amiodarone HCl (Cordarone) 200 mg PO BID [facility] Last Admin: 01/28/19 22:08 Dose: 200 mg Documented by: Ascorbic Acid (Vitamin C) 500 mg PO BID [facility] Last Admin: 01/28/19 22:09 Dose: 500 mg Documented by: Aspirin (Halfprin Ec) 81 mg PO QDAY [facility] Atorvastatin Calcium (Lipitor) 40 mg PO QHS [facility] Last Admin: 01/28/19 22:09 Dose: 40 mg Documented by: Bisacodyl (Dulcolax) 10 mg [place] QDAY PRN PRN Reason: Constipation Clopidogrel Bisulfate (Plavix) 75 mg PO QDAY [facility] Dextrose (D50w (25gm) Syringe) 50 ml IV PRN PRN PRN Reason: Hypoglycemia Enoxaparin Sodium (Lovenox) 40 mg SUB-Q QDAY [facility] Ergocalciferol (Vitamin D2) 50,000 unit PO [facility] Furosemide (Lasix) 60 mg PO 0600,1800 [facility] Last Admin: 01/28/19 22:00 Dose: 60 mg Documented by: Gabapentin (Neurontin) 300 mg PO Q6HR [facility] Last Admin: 01/28/19 00:00 Dose: 300 mg Documented by: Hydralazine HCl (Apresoline) 10 mg PO Q6H PRN PRN Reason: Hypertension Vancomycin HCl 1,500 mg/ (Sodium Chloride) 530 mls @ 333.333 mls/hr IV Q12H [facility] Insulin Glargine (Lantus) 15 units SUB-Q QHS [facility] Last Admin: 01/28/19 22:10 Dose: 15 units Documented by: Insulin Human Lispro (Humalog) 0 unit SUB-Q [facility]; Protocol Levofloxacin (Levaquin) 750 mg PO Q24H [facility] Last Admin: 01/29/19 04:00 Dose: 750 mg Documented by: Metoprolol Succinate (Toprol Xl) 100 mg PO QDAY [facility] Multivitamins/Minerals (Theragran-M Tab) 1 each PO QDAY [facility] Ondansetron HCl (Zofran Odt) 4 mg PO Q8H PRN PRN Reason: Nausea And Vomiting Oxycodone/Acetaminophen (Percocet 5/325) 1 tab PO Q4H PRN PRN Reason: Pain, Moderate (4-6) Last Admin: 01/29/19 04:33 Dose: 1 tab Documented by: Paroxetine HCl (Paxil) 10 mg PO QDAY [facility] Polyethylene Glycol (Miralax 3350) 17 gm PO QDAY PRN PRN Reason: Constipation Prednisone (Deltasone) 40 mg PO QDAY [facility] Tiotropium [place] (Spiriva) 1 puff IH Q24HRT [facility] Zinc Sulfate (Zinc Sulfate) 220 mg PO BID [facility] Last Admin: 01/28/19 22:07 Dose: 220 mg Documented by: Review of Systems All systems: negative (ROS negative for 12 systems except as noted below with pertinent positives and negatives.) Constitutional: weakness, poor appetite Ears, nose, mouth and throat: no decreased hearing, no dysphagia Cardiovascular: edema, shortness of breath, high blood pressure, leg edema, decreased exercise tolerance, no chest pain, no palpitations, no rapid/irregular heart beat Respiratory: shortness of breath, dyspnea on exertion, congestion, home oxygen Gastrointestinal: no nausea, no vomiting, no diarrhea, no constipation Genitourinary Female: no dysuria Musculoskeletal: limitation of motion, gait dysfunction, prior amputations Integumentary: sores, wounds Neurological: balance difficulties, no head injury, no headaches Psychiatric: anxiety, change in appetite, depression Exam - Exam Narrative exam: MUSCULOSKELETAL SPECIALTY EXAM No tenderness to paraspinal area. Mild subjective tenderness over base of skull. No further injuries or wounds noted after fall from Joana lift. Photographic documentation obtained by nursing. CONSTITUTIONAL: Well developed, well nourished, appropriately groomed, obese LYMPHATIC: No appreciable abnormalities palpable in neck EENT: Visual fonseca full to confrontation. EOMI. Oropharynx clear. Hearing intact to soft voice RESPIRATORY: Rhonchi bilaterally, no increased work of breathing, on nasal cannula CARDIOVASCULAR: Regular Rate/ Rhythm, no tenderness in BUE or BLE. 3+ pitting edema in BLE, also has appearance of dependent due to low protein. Radial pulses palpable. All extremities warm. GI: + bowel sounds, soft, NTTP, nondistended, protuberant INTEGUMENTARY: Widespread bruising, sores, and lesions, no rash or masses noted in extremities. MUSCULOSKELETAL: BUE and BLE normal without defect, crepitus, subluxation, effusion, arthritic changes or TTP. BUE 4/5, good ROM, with normal tone. BLE 3/5 decreased ROM, with normal tone NEURO: CN 2-12 grossly intact. Sensation intact but altered in all extremities. Reflexes 2+ bilaterally at biceps, brachioradialis and patella. No clonus at ankle. Coordination intact in BUE. No tremor noted in 4 extremities. POSTURE and GAIT: Sitting posture and fair. Balance appears poor. Gait/standing deferred until seen with therapy. PSYCH: Alert, oriented x3, affect appears anxious. Insight appears intact. - Constitutional Vitals: Vital Signs - 12hr 01/28/19 01/28/19 01/29/19 22:00 22:07 04:33 Temperature Pulse Rate Respiratory 20 18 Rate Respiratory 20 Rate [Left Leg] Blood Pressure [Right] O2 Sat by Pulse Oximetry 01/29/19 01/29/19 01/29/19 06:13 07:13 08:04 Temperature 36.5 C 36.7 C Pulse Rate 75 76 Respiratory 18 22 18 Rate Respiratory Rate [Left Leg] Blood Pressure 110/58 105/59 [Right] O2 Sat by Pulse 99 98 Oximetry - Allied health notes Allied health notes reviewed: nursing, PT, OT FIMS assesment as documented by PT/OT/ST: Grooming Patient cleans teeth/dentures: Yes Patient epperson/brushes hair: Yes Patient washes, rinses and Yes dries face: Patient washes, rinses and Yes dries hands: Patient shaves: No Patient applies make-up: No Patient performs (no make-up/ 10/02 (100%) shaving): Grooming FIM Score 4. Minimal Assistance (Patient = 75% or more. Needs touching.) Social interaction/Memory/Problem solving Social Interaction FIM Score 6. Mod. Carmen (Mostly appropriate. May need meds. No supv.) Memory FIM Score 5. Supervision (Needs cueing <10%, stressful/ unfamiliar situations.) Problem Solving FIM Score 3. Moderate Assistance (Solves routine problems 50-74%.) Eating Eating FIM Score 4. Minimal Assistance (Patient = 75% or more) Dressing-Upper body Patient retrieves clothing No items: Patient applies/removes UE No prosthesis or orthosis: Upper Body Dressing FIM Score 4. Minimal Assistance (Patient = 75% or more. Needs touching.) Dressing-lower body Patient retrieves clothing No items: Patient applies/removes LE No prosthesis or orthosis: Lower Body Dressing FIM Score 1. Total Assistance (Patient less than 25%) - Labs CBC & Chem 7: 01/29/19 04:21 01/29/19 04:21 Labs: Laboratory Results - last 72 hr 01/28/19 01/28/19 01/29/19 20:46 21:43 04:21 WBC 10.2 RBC 4.36 Hgb 10.4 Hct 33.8 MCV 78 L MCH 24 L MCHC 31 RDW 21.6 H Plt Count 123 L Lymph % (Auto) 7.2 L Dougherty % (Auto) 5.0 Eos % (Auto) 0.0 Baso % (Auto) 0.1 Lymph # 0.7 L Dougherty # 0.5 Eos # 0.0 Baso # 0.0 Seg Neutrophils % 87.7 H Seg Neutrophils # 8.9 H Sodium 141 Potassium 4.4 Chloride 98.6 Carbon Dioxide 31 H Anion Gap 16 BUN 39 H Creatinine 0.6 L Estimated GFR > 60 BUN/Creatinine Ratio 65 Glucose 241 H POC Glucose 218 H Calcium 8.1 L Total Bilirubin AST ALT Alkaline Phosphatase Total Protein Albumin Albumin/Globulin Ratio 01/29/19 01/29/19 04:21 07:50 WBC RBC Hgb Hct MCV MCH MCHC RDW Plt Count Lymph % (Auto) Doug[place] % (Auto) Eos % (Auto) Baso % (Auto) Lymph # Dougherty # Eos # Baso # Seg Neutrophils % Seg Neutrophils # Sodium 142 Potassium 4.1 Chloride 99.6 Carbon Dioxide 29 Anion Gap 18 BUN 37 H Creatinine 0.6 L Estimated GFR > 60 BUN/Creatinine Ratio 62 Glucose 248 H POC Glucose 208 H Calcium 7.9 L Total Bilirubin 0.60 AST 16 ALT 19 Alkaline Phosphatase 127 Total Protein 5.6 L Albumin 2.9 L Albumin/Globulin Ratio 1.1 - Imaging and cardiology CT Scan - head: report reviewed, image reviewed Assessment and Plan Assessment and plan: Patient was assessed and evaluated for Acute Inpatient Rehab Unit. Due to the patients above-mentioned medical complexity, along with decreased functional mobility and self care, this patient continues to require and be appropriate for a comprehensive, multidisciplinary [id number] rehabilitation program. These needs cannot be met in an outpatient or other less intensive setting. The patient would continue to benefit from skilled therapy intervention for at least 3 hours per day, five days a week, with techniques specific to the needs of the patient to improve function, activities of daily living, and reintegration into the community. The patient continues to require: -- OT to improve ROM, self-care, and learn use of adaptive equipment -- PT to improve strength and balance, functional transfers, and ambulation with energy conservation techniques to improve functional mobility -- 24 hour RN to ensure and prevent skin breakdown, promote progressive independence while ensuring safety, ensure education regarding medications, and incorporation of the rehabilitation at the bedside -- 24 hour [employer] License[employer] to coordinate this interdisciplinary program, and to manage/prevent complications as a result of the patients medical comorbidities. -Plan of care by day 4 -Weekly team conferences With such a program, there is a reasonable certainty that the goals individualized for this patient can be achieved within the specified length of stay. Left BKA: Continue supportive care. We'll continue to work with therapy on transfers in order to facilitate safe transition home. At this point based on the patient's comorbidities it does not appear that she will be a good candidate for a prosthesis. We will likely discharge home at wheelchair level. COPD: Continue respiratory support with prednisone and inhalers. DuoNeb. Respiratory therapy eval and nasal cannula for oxygen. CHF: Continue diuresis, monitor renal function, continue Entresto Hypertension: Continue medications and adjust as needed Diabetes, poorly controlled: Continue controlled carb diet, continue insulin monitor and adjust as needed Atrial fibrillation: Continue rate control. Eliquis started for anticoagulation Coronary artery disease: Continue aspirin and Plavix. Monitor for any signs of bleeding. Monitor for any chest pain or cardiac symptoms. Peripheral vascular disease: Continue aspirin and Plavix monitor for any signs of bleeding DVT R brachial vein: Discussed risk and benefits with patient, confirmed with Doppler, started Eliquis. Monitor for any signs of bleeding Morbid obesity: Discussed weight loss, lifestyle change, dietary modification Suspected pneumonia: Complete Levaquin MRSA bacteremia: Complete vancomycin. Patient is on isolation. Last blood culture was negative Anxiety/depression: continue Xanax and Paxil Z73.6 ADL dysfunction: OT will work on improving ability to perform ADLs (including assistive devices) to increase independence and decrease caregiver burden and improve functional transfers and mobility training. R26.2 Difficulty walking: PT will work on gait training and proper use of assistive devices and advance as appropriate to use of stairs and outside ambulation on uneven surfaces. R26.81 Unsteadiness on feet: PT will work on improving static and dynamic sitt ing and standing balance as well as proper use of assistive devices to decrease risk of falls. R26.89 Abnormality of gait: PT will work to improve safety and efficiency of gait through neuromotor training and gait training along with instruction on proper use of assistive devices. M62.81 Muscle weakness: PT & OT will work on strengthening exercises to improve functional strength including mixture of closed and open kinetic chain exercises. R53.81 Debility: PT & OT will work on improving overall functional status to improve participation with ADLs, mobility and social involvement. R53.83 Fatigue: PT & OT will work on improving endurance through aerobic exercises and therapeutic activity while monitoring patients tolerance for activity and vital signs as needed. DVT ppx: Started on Eliquis for RUE DVT Pain: Continue physical modalities in therapy and pain medications as needed to achieve functional pain control. Patient remains on Percocet for chronic pain Sleep: Monitor and address as needed. Bowel: Monitor and address as needed. Appetite: Monitor and address as needed. Discharge planning: Pending therapy progress and care plan meeting. Will continue discussion with therapy team, SW, patient and family. Restrictions/ Precautions: Falls WB status: FWB Functional Hx: ADLs: Independent Cognition: Independent Mobility: No AD Barriers to Discharge: Decreased mobility and ability to perform self care, balance deficits, weakness Estimated Length of Stay: 1014 days Discharge Destination: Home with family POST ADMISSION PHYSICIAN EVALUATION I have examined the patient and find that functional status, medical condition and appropriateness for IRF admission are essentially unchanged from those described in the preadmission screening with some exceptions including left brachial DVT. Will monitor for worsening debility, DVT/PE, bowel and bladder complications and complications due to COPD, CHF, hypertension, diabetes, atrial fibrillation, coronary artery disease, bacteremia and electrolyte abnormalities. Will attempt to avoid occurrence of these issues or treat them if they present themselves.
[2019-01-29] MEDS: DUONEB *Not for PRN Use IH SCH ×3 (09:59→21:57)
[2019-01-29] MEDS: SPIRIVA IH SCH (10:00)
[2019-01-29 10:43] LABS: Iron 53 ug/dL (37-170); Total Iron Binding Capacity 245 mcg/dL (250-450)
[2019-01-29] MEDS ORDERED: VANCOMYCIN 1,500 MG in NACL 0.9% 500 ML 500 ML IV SCH (11:00)
--- NOTE | 2019-01-29 12:48 | XRay Report ---
CERVICAL SPINE 3 VIEWS INDICATION / CLINICAL INFORMATION: Fall with pain. COMPARISON: None available. FINDINGS: VERTEBRAE: Normal alignment through C6. The lower levels are not well-demonstrated due to lack of pen etration by the x-ray. Normal odontoid and C1. DISC SPACES / FACET JOINTS:Degenerative disc disease with large anterior osteophytes at C4-5 and C5-6 . Facet joint arthropathy from C2-3 through C5-6. PARASPINAL SOFT TISSUES:No significant abnormality. IMPRESSION: Multilevel degenerative disc disease and facet joint disease. Limited examination for exc luding injury since the lower levels are not adequately demonstrated. Recommend CT cervical spine. Signer Name: Karl Dickinson MD Signed: 01/29/2019 12:44 PM Workstation Name: [id number]
--- NOTE | 2019-01-29 12:49 | XRay Report ---
SKULL HISTORY: Fall and pain. COMPARISON: None. TECHNIQUE: 2 radiographic views of the skull obtained. FINDINGS: Calvarium: No significant abnormality. Bones: No significant abnormality. Soft Tissues: No significant abnormality. Additional Findings: None. IMPRESSION: 1. No significant abnormality. Signer Name: Karl Dickinson MD Signed: 01/29/2019 12:45 PM Workstation Name: [id number]
--- NOTE | 2019-01-29 13:33 | Vascular Lab Report ---
BILATERAL UPPER EXTREMITY VENOUS DOPPLER ULTRASOUND HISTORY: Upper extremity pain and swelling. COMPARISON: None. TECHNIQUE: Grayscale, color and spectral Doppler imaging of the venous system of both upper extremiti es was performed. FINDINGS: Right Upper Extremity: Internal Jugular Vein: Normal grayscale appearance and flow. Subclavian Vein: Normal grayscale appearance and flow. Axillary Vein: Normal venous flow, compressibility and augmentation. Brachial vein: 1 of 2 brachial veins are noncompressible consistent with acute DVT. Basilic vein: Normal venous flow, compressibility and augmentation. Cephalic vein: Normal venous flow, compressibility and augmentation. Left Upper Extremity: Internal Jugular Vein: Normal grayscale appearance and flow. Subclavian Vein: Normal grayscale appearance and flow. Axillary Vein: Normal venous flow, compressibility and augmentation. Brachial vein: Not visualized Basilic vein: Not visualized Cephalic vein: Normal venous flow, compressibility and augmentation. Additional Findings: None. IMPRESSION: 1. Positive for DVT in the right brachial vein. Signer Name: Sheldon Meeks Jr, MD Signed: 01/29/2019 1:28 PM Workstation Name: [id number]
--- NOTE | 2019-01-29 14:59 | Cat Scan Report ---
CT head without contrast INDICATION : Fall with pain. TECHNIQUE: Axial imaging performed from the skull apex through the skull base without the use of con trast. All CT scans at this location are performed using CT dose reduction for ALARA by means of aut omated exposure control. COMPARISON: 11/15/2017 FINDINGS: Parenchyma: No acute intracranial hemorrhage or parenchymal abnormality.. A chronic right basal gang darrel lacunar infarct and mild chronic white matter hypodensities. Ventricles: Ventricles are normal in size and appear symmetric. Soft tissues: Soft tissues including the orbits appear normal. Bones: No acute osseous abnormality. No fracture. Sinuses: Sinuses and mastoid air cells are clear. IMPRESSION: No acute abnormality. Signer Name: Karl Dickinson MD Signed: 01/29/2019 2:55 PM Workstation Name: [id number]
[2019-01-29] MEDS: ELIQUIS PO SCH ×2 (15:25→23:06)
[2019-01-29] MEDS: NEURONTIN PO SCH ×3 (15:26→19:54)
--- NOTE | 2019-01-29 15:59 | Cat Scan Report ---
CT CERVICAL SPINE WITHOUT CONTRAST INDICATION: Neck pain after fall earlier today. TECHNIQUE: Axial imaging performed through the cervical without the use of contrast. Sagittal and c oronal reconstructed images were also reviewed. All CT scans at this location are performed using CT dose reduction for ALARA by means of automated exposure control. COMPARISON: None FINDINGS: Alignment: Spinal alignment is normal. Bones: There is no acute osseous abnormality. Moderate multilevel discogenic DJD and facet arthropa thy are identified throughout the cervical spine. No evidence for displaced fracture or suspicious b one lesion. Soft tissues: No acute or significant incidental soft tissue abnormality. IMPRESSION: Moderate multilevel cervical spondylosis. No evidence for acute injury. Signer Name: Sheldon Meeks Jr, MD Signed: 01/29/2019 3:55 PM Workstation Name: [id number]
[2019-01-29] MEDS: LASIX PO SCH ×2 (19:54→20:33)
[2019-01-29] MEDS: LANTUS SUB-Q SCH (23:09)
[2019-01-29] MEDS: VANCOMYCIN 1,500 MG in NACL 0.9% 500 ML 500 ML IV SCH (23:32)
[2019-01-30] MEDS: NEURONTIN PO SCH ×4 (01:49→17:05)
[2019-01-30] MEDS: LASIX PO SCH ×2 (05:14→17:17)
[2019-01-30] MEDS: PERCOCET 5/325 PO PRN ×4 (05:15→21:46)
[2019-01-30] MEDS: LEVAQUIN PO SCH (05:15)
--- NOTE | 2019-01-30 09:07 | Progress Note ---
Subjective Date of service: 01/30/19 Principal diagnosis: Left BKA, debility Interval history: 58-year-old female with recent history of a left BKA revision started to develop extreme pain in the legs and buttocks along with tachycardia. At the ER she was found to have atrial fibrillation with RVR. Her reports she was supposed to be on amiodarone was apparently noncompliant with this. She was started on amiodarone drip. She developed an acute mental status change but workup was negative for any acute changes. She is transferred to the ICU placed on BiPAP with some improvements noted. She developed MRSA bacteremia and was started on vancomycin. On 01/21 she was noted to have a right brachial DVT and was placed on a heparin drip. This was not seen in paperwork that we reviewed prior to admission and she was not transferred on any anticoagulation. There was mention under atrial fibrillation that she was not a good candidate for anticoagulation, however with both atrial fibrillation and a DVT she is at a higher risk for an embolic event. Discussed with the patient risks and benefits and have started her on Eliquis. She continued to have persistent respiratory issues with w heezing and shortness of breath. She was started on Entresto along with IV steroids and is now on oral steroid wean. Patient is participating in therapy and making slow progress. Taking rest breaks as needed. +BM. Denies palpitations, N/V, weakness, diarrhea. Right shoulder pain, chronic in nature worse with WB and flared up last night. More anterior. Still having cough with sputum at times. CXR ordered. Does not want to have therapy today, advised we would need to transfer her to CT if she refuses. No complaints of head or back pain. Given an unusual reading on BP by nursing. They rechecked it. Patient is asymptomatic. Continue to monitor. All records, vitals, labs and medications were reviewed. No other issues per patient, nursing or therapy. Objective - Exam Narrative Exam: MUSCULOSKELETAL SPECIALTY EXAM CONSTITUTIONAL: Well developed, well nourished, appropriately groomed, obese EENT: EOMI. Hearing intact to soft voice RESPIRATORY: Rhonchi bilaterally, no increased work of breathing, on nasal cannula CARDIOVASCULAR: Regular Rate/ Rhythm, no tenderness in BUE or BLE. 3+ pitting edema in BLE, also has appearance of dependent due to low protein. All extremities warm. Slight oozing noted on RUE GI: + bowel sounds, soft, NTTP, nondistended, protuberant INTEGUMENTARY: Widespread bruising, sores, and lesions, no rash or masses noted in extremities. MUSCULOSKELETAL: BUE and BLE normal without defect, crepitus, subluxation, effusion, arthritic changes or TTP except for Left BKA and right toe amputations as noted, and right anterior shoulder TTP and + Speeds BUE 4/5, good ROM, with normal tone. BLE 3/5 decreased ROM, with normal tone NEURO: CN 2-12 grossly intact. Sensation intact but altered in all extremities. No tremor noted in 4 extremities. POSTURE and GAIT: Sitting posture and fair. Balance appears poor. Gait/standing deferred until seen with therapy. PSYCH: Alert, oriented x3, affect appears anxious. Insight appears intact. - Constitutional Vitals: Vital Signs - 12hr 01/29/19 01/29/19 01/29/19 22:13 22:14 22:21 Temperature Pulse Rate 75 Pulse Rate [ 73 Anterior] Respiratory 20 Rate Respiratory 22 Rate [Anterior] Blood Pressure 139/30 [Right] O2 Sat by Pulse 97 90 Oximetry 01/30/19 01/30/19 07:06 08:00 Temperature 36.6 C Pulse Rate 82 68 Pulse Rate [ Anterior] Respiratory 18 Rate Respiratory Rate [Anterior] Blood Pressure 104/55 [Right] O2 Sat by Pulse 97 Oximetry - Allied health notes Allied health notes reviewed: nursing, PT, OT FIMS assessment as documented by PT/OT/ST: Grooming Patient cleans teeth/dentures: Yes Patient epperson/brushes hair: Yes Patient washes, rinses and Yes dries face: Patient washes, rinses and Yes dries hands: Patient shaves: No Patient applies make-up: No Patient performs (no make-up/ /4 (100%) shaving): Grooming FIM Score 4. Minimal Assistance (Patient = 75% or more. Needs touching.) Social interaction/Memory/Problem solving Social Interaction FIM Score 6. Mod. [place] (Mostly appropriate. May need meds. No supv.) Memory FIM Score 5. Supervision (Needs cueing <10%, stressful/ unfamiliar situations.) Problem Solving FIM Score 4. Minimal Assistance (Solves routine problems 75-90%.) Transfers Mode of Locomotion: Wheelchair Bed/Chair/Wheelchair Transfers 1. Total Assistance (Patient less than 25%. 2 or FIM Score more persons.) Locomotion- Stairs Stairs FIM Score 0. Activity does not occur Locomotion- walk/wheelchair Most Frequent Mode of Walking Locomotion: Ambulation Distance 0 Walking FIM Score 0. Activity does not occur Wheelchair FIM Score 0. Activity does not occur Eating Eating FIM Score 4. Minimal Assistance (Patient = 75% or more) Dressing-Upper body Patient retrieves clothing No items: Patient applies/removes UE No prosthesis or orthosis: Upper Body Dressing FIM Score 4. Minimal Assistance (Patient = 75% or more. Needs touching.) Dressing-lower body Patient retrieves clothing No items: Patient applies/removes LE No prosthesis or orthosis: Lower Body Dressing FIM Score 1. Total Assistance (Patient less than 25%) - Labs CBC & Chem 7: 01/29/19 04:21 01/29/19 04:21 Labs: Laboratory Results - last 72 hr 01/28/19 01/28/19 01/29/19 20:46 21:43 04:21 WBC 10.2 RBC 4.36 Hgb 10.4 Hct 33.8 MCV 78 L MCH 24 L MCHC 31 RDW 21.6 H Plt Count 123 L Lymph % (Auto) 7.2 L [place] % (Auto) 5.0 Eos % (Auto) 0.0 Baso % (Auto) 0.1 Lymph # 0.7 L [place] # 0.5 Eos # 0.0 Baso # 0.0 Seg Neutrophils % 87.7 H Seg Neutrophils # 8.9 H Sodium 141 Potassium 4.4 Chloride 98.6 Carbon Dioxide 31 H Anion Gap 16 BUN 39 H Creatinine 0.6 L Estimated GFR > 60 BUN/Creatinine Ratio 65 Glucose 241 H POC Glucose 218 H Calcium 8.1 L Iron TIBC Total Bilirubin AST ALT Alkaline Phosphatase Total Protein Albumin Albumin/Globulin Ratio 01/29/19 01/29/19 01/29/19 04:21 07:50 10:14 WBC RBC Hgb Hct MCV MCH MCHC RDW Plt Count Lymph % (Auto) [place] % (Auto) Eos % (Auto) Baso % (Auto) Lymph # [place] # Eos # Baso # Seg Neutrophils % Seg Neutrophils # Sodium 142 Potassium 4.1 Chloride 99.6 Carbon Dioxide 29 Anion Gap 18 BUN 37 H Creatinine 0.6 L Estimated GFR > 60 BUN/Creatinine Ratio 62 Glucose 248 H POC Glucose 208 H Calcium 7.9 L Iron 53 TIBC 245 L Total Bilirubin 0.60 AST 16 ALT 19 Alkaline Phosphatase 127 Total Protein 5.6 L Albumin 2.9 L Albumin/Globulin Ratio 1.1 01/29/19 01/29/19 01/29/19 11:56 17:17 21:55 WBC RBC Hgb Hct MCV MCH MCHC RDW Plt Count Lymph % (Auto) [place] % (Auto) Eos % (Auto) Baso % (Auto) Lymph # [place] # Eos # Baso # Seg Neutrophils % Seg Neutrophils # Sodium Potassium Chloride Carbon Dioxide Anion Gap BUN Creatinine Estimated GFR BUN/Creatinine Ratio Glucose POC Glucose 214 H 278 H 245 H Calcium Iron TIBC Total Bilirubin AST ALT Alkaline Phosphatase Total Protein Albumin Albumin/Globulin Ratio 01/30/19 09:02 WBC RBC Hgb Hct MCV MCH MCHC RDW Plt Count Lymph % (Auto) [place] % (Auto) Eos % (Auto) Baso % (Auto) Lymph # [place] # Eos # Baso # Seg Neutrophils % Seg Neutrophils # Sodium Potassium Chloride Carbon Dioxide Anion Gap BUN Creatinine Estimated GFR BUN/Creatinine Ratio Glucose POC Glucose 150 H Calcium Iron TIBC Total Bilirubin AST ALT Alkaline Phosphatase Total Protein Albumin Albumin/Globulin Ratio Assessment and Plan Left BKA: Continue supportive care. We'll continue to work with therapy on transfers in order to facilitate safe transition home. At this point based on the patient's comorbidities it does not appear that she will be a good candidate for a prosthesis. We will likely discharge home at wheelchair level. COPD: Continue respiratory support with prednisone and inhalers. DuoNeb. Respiratory therapy eval and nasal cannula for oxygen. CHF: Continue diuresis, monitor renal function, continue Entresto Hypertension: Continue medications and adjust as needed Diabetes, poorly controlled: Continue controlled carb diet, continue insulin monitor and adjust as needed Atrial fibrillation: Continue rate control. Eliquis started for anticoagulation Coronary artery disease: Continue aspirin Monitor for any signs of bleeding. Monitor for any chest pain or cardiac symptoms. Peripheral vascular disease: Continue aspirin monitor for any signs of bleeding. D/C plavix due to slight oozing overnight. Monitor H&H DVT R brachial vein: Discussed risk and benefits with patient, confirmed with Doppler, started Eliquis. Monitor for any signs of bleeding Morbid obesity: Discussed weight loss, lifestyle change, dietary modification Suspected pneumonia: Complete Levaquin, CXR today. Start mucomyst MRSA bacteremia: Complete vancomycin. Patient is on isolation. Last blood culture was negative Anxiety/depression: continue Xanax and Paxil Right shoulder pain: Speed's POS. Voltaren gel, modalities Z73.6 ADL dysfunction: OT will work on improving ability to perform ADLs (including assistive devices) to increase independence and decrease caregiver burden and improve functional transfers and mobility training. R26.2 Difficulty walking: PT will work on gait training and proper use of assistive devices and advance as appropriate to use of stairs and outside ambulation on uneven surfaces. R26.81 Unsteadiness on feet: PT will work on improving static and dynamic sitting and standing balance as well as proper use of assistive devices to decrease risk of falls. R26.89 Abnormality of gait: PT will work to improve safety and efficiency of gait through neuromotor training and gait training along with instruction on pr oper use of assistive devices. M62.81 Muscle weakness: PT & OT will work on strengthening exercises to improve functional strength including mixture of closed and open kinetic chain exercises. R53.81 Debility: PT & OT will work on improving overall functional status to improve participation with ADLs, mobility and social involvement. R53.83 Fatigue: PT & OT will work on improving endurance through aerobic exercises and therapeutic activity while monitoring patients tolerance for activity and vital signs as needed. DVT ppx: Started on Eliquis for RUE DVT Pain: Continue physical modalities in therapy and pain medications as needed to achieve functional pain control. Patient remains on Percocet for chronic pain Sleep: Monitor and address as needed. Bowel: Monitor and address as needed. Appetite: Monitor and address as needed. Discharge planning: Pending therapy progress and care plan meeting. Will continue discussion with therapy team, SW, patient and family. Restrictions/ Precautions: Falls WB status: FWB Functional Hx: ADLs: Independent Cognition: Independent Mobility: No AD Barriers to Discharge: Decreased mobility and ability to perform self care, balance deficits, weakness Estimated Length of Stay: 1014 days Discharge Destination: Home with family
[2019-01-30] MEDS: HumaLOG SUB-Q SCH ×4 (09:15→23:45)
[2019-01-30] MEDS: ENTRESTO 24 - 26 MG PO SCH ×2 (09:25→21:47)
[2019-01-30] MEDS: PAXIL PO SCH (09:26)
[2019-01-30] MEDS: CORDARONE PO SCH ×2 (09:26→21:47)
[2019-01-30] MEDS: HALFPRIN EC PO SCH (09:27)
[2019-01-30] MEDS: DELTASONE PO SCH (09:27)
[2019-01-30] MEDS: THERAGRAN-M Tab PO SCH (09:27)
[2019-01-30] MEDS: PLAVIX PO SCH ×2 (09:27→10:20)
[2019-01-30] MEDS: ZINC SULFATE PO SCH ×2 (09:28→21:47)
[2019-01-30] MEDS: TOPROL XL PO SCH (10:15)
[2019-01-30] MEDS: VITAMIN C PO SCH ×2 (10:26→21:46)
[2019-01-30] MEDS: VANCOMYCIN 1,500 MG in NACL 0.9% 500 ML 500 ML IV SCH ×2 (10:47→21:44)
[2019-01-30] MEDS: ELIQUIS PO SCH ×2 (11:38→21:47)
[2019-01-30] MEDS: DUONEB *Not for PRN Use IH SCH ×3 (11:43→21:00)
[2019-01-30] MEDS: SPIRIVA IH SCH (11:44)
[2019-01-30] MEDS: DICLOFENAC 1% TP SCH ×2 (13:29→21:48)
--- NOTE | 2019-01-30 13:45 | XRay Report ---
CHEST 2 VIEWS INDICATION: Rhonchi. Abnormal breath sounds COMPARISON: Chest x-ray report dated 10/16/2018 FINDINGS: Support devices: None. Heart: Mild cardiomegaly. Lungs/pleura: Mild bilateral pulmonary venous congestion and small pleural effusions are identified. No consolidation. No pneumothorax. Additional findings: CABG changes are suspected. IMPRESSION: Mild CHF. Signer Name: Sheldon Meeks Jr, MD Signed: 01/30/2019 1:41 PM Workstation Name: [id number]
[2019-01-30] MEDS: MUCOMYST INHALATION INHALATION SCH ×2 (14:02→21:00)
[2019-01-30] MEDS: XANAX PO PRN ×2 (15:00→21:45)
[2019-01-30 16:01] LABS: Hematocrit 36.6 % (30.3-42.9); Hemoglobin 11.4 gm/dl (10.1-14.3)
[2019-01-30] MEDS: LANTUS SUB-Q SCH (21:48)
[2019-01-31] MEDS: NEURONTIN PO SCH ×4 (00:27→17:12)
[2019-01-31] MEDS: PERCOCET 5/325 PO PRN ×5 (02:32→22:40)
[2019-01-31] MEDS: ZOFRAN ODT PO PRN (02:32)
[2019-01-31] MEDS: LASIX PO SCH ×2 (05:54→17:12)
[2019-01-31] MEDS: LEVAQUIN PO SCH (05:54)
[2019-01-31] MEDS: HumaLOG SUB-Q SCH ×3 (08:22→17:12)
[2019-01-31] MEDS: TOPROL XL PO SCH (08:25)
[2019-01-31] MEDS ORDERED: NACL 0.9% 1000 ML 1,000 ML IV SCH (09:00)
[2019-01-31] MEDS: ENTRESTO 24 - 26 MG PO SCH ×2 (09:02→21:37)
[2019-01-31] MEDS: PAXIL PO SCH (09:02)
[2019-01-31] MEDS: ZINC SULFATE PO SCH ×2 (09:03→21:37)
[2019-01-31] MEDS: ELIQUIS PO SCH (09:03)
[2019-01-31] MEDS: CORDARONE PO SCH ×2 (09:03→21:36)
[2019-01-31] MEDS: VITAMIN C PO SCH ×2 (09:03→21:37)
[2019-01-31] MEDS: HALFPRIN EC PO SCH (09:03)
[2019-01-31] MEDS: DELTASONE PO SCH (09:04)
[2019-01-31] MEDS: THERAGRAN-M Tab PO SCH (09:04)
[2019-01-31] MEDS: DICLOFENAC 1% TP SCH ×3 (09:05→20:39)
--- NOTE | 2019-01-31 09:21 | IRU Plan of Care ---
Interdisciplinary Plan of Care - IP IRU INTERDISCIPLINARY PLAN: [facility] Inpatient Rehab Unit Plan of Care IRU Interdisciplinary Care Plan Start: 01/28/19 18:13 Freq: Admission then PRN Status: Active Protocol: Document 01/30/19 14:12 TH (Rec: 01/30/19 14:18 TH [id number]) Interdisciplinary Problem List Interdisciplinary Problem List Interdisciplinary Problem List Impaired Bathing/Grooming, Query Text:Answers will Trigger Problems Impaired Dressing,Impaired and Outcomes on Worklist. Mobility,Impaired Transfers, Impaired Problem Solving,Pain Management,Impaired Skin/ Tissue Integrity,Impaired Home Management,Impaired Safety, Diabetes Education,Impaired Cardiovascular System IRU Interdisciplinary Care Plan Therapy Services Therapy Services Will Include: Physical Therapy,Occupational Query Text:Patient will be seen for a Therapy minimum of 3 hours of daily therapy 5 out of 7 days a week. Therapy intensity may be adjusted within a 7 consecutive day period to effectively serve the individual needs of the patient. Treatment Frequency/Intensity/Duration Treatment Frequency 5 days per week Treatment Intensity 3 hours per day Treatment Duration 14-21 days Problem Area: Eating/Swallowing Eating/Swallowing Outcomes Eating/Swallowing Interventions Problem Area: Bathing/Grooming Bathing/Grooming Outcomes Improve [place] w/ Grooming,Improve [place] w/ Bathing Bathing/Grooming Interventions ADL Training,Use of Assistive Devices,Therapeutic Exercise, Therapeutic Activity, Neuromuscular Re-Education, Balance Work,Activity Tolerance Work,Patient/ Caregiver Education Problem Area: Dressing Dressing Outcomes Improve [place] w/ UB Dressing,Improve [place] w/ LB Dressing Dressing Interventions ADL Training,Use of Assistive Devices,Neuromuscular Re- Education,Therapeutic Exercise ,Balance Work,Modalities, Patient/Caregiver Education Problem Area: Mobility Mobility Outcomes Improve [place] w/ Bed Mobility,Improve [place] w/ Ambulation,Improve [place] w/ Wheelchair Mobility Interventions Therapeutic Exercise, Neuromuscular Re-Ed.,Activity Tolerance Work,Use of Assistive Devices,Patient/ Caregiver Education,Bed Mobility Work,Gait Training,W/ C Mobility Work Problem Area: Transfers Transfers Outcomes Improve [place] w/ Bed Transfers,Improve [place] w/ Toilet Transfers,Improve [place] w/ Car Transfers Transfers Interventions Transfer Training,Therapeutic Exercise,Neuromuscular Re- Education,Activity Tolerance Work,Use of Assistive Devices, Patient/Caregiver Education Problem Area: Bowel/Bladder Managment Bowel/Bladder Outcomes Bowel/Bladder Interventions Problem Area: Toileting Toileting Outcomes Improve [place] w/ Toileting Toileting Interventions ADL Training,Balance Work,Use of Assistive Devices,Patient/ Caregiver Education Problem Area: Nutrition Nutrition Outcomes Nutrition Interventions Problem Area: Comprehension Comprehension Outcomes Comprehension Interventions Problem Area: Expression Expression Outcomes Expression Interventions Problem Area: Problem Solving Problem Solving Outcomes Problem Solving Interventions Problem Area: Memory Memory Outcomes Memory Interventions Problem Area: Pain Management Pain Management Outcomes Demonstrate/Verbalize Pain Strategies Pain Management Interventions Medication Management,Stress Management,Use of Devices/ Modalities (TENS, hot pack, cold pack, etc.),Positioning/ Turning,Patient/Caregiver Education Problem Area: Knowledge Deficits Knowledge Deficits Outcomes Knowledge Deficits Interventions Problem Area: Skin/Tissue Integrity Skin/Tissue Integrity Outcomes Exhibit Healing of Wound/ Incision,Demonstrate Understanding of Pressure Relief,Demonstrate Understanding of Self Wound Care Skin/Tissue Integrity Interventions Skin/Wound Care,Pressure Relief Instruction,Dressing Change Education,Positioning/ Turning Problem Area: Social Interaction Social Interaction Outcomes Exhibit Appropriate Social Skills Social Interaction Interventions Stress Management Problem Area: Adjustment to Disability Adjustment to Disability Outcomes Adjustment to Disability Interventions Problem Area: Discharge Concerns Discharge Concerns Outcomes Discharge Concerns Interventions Problem Area: Community Reintegration Community Reintegration Outcomes Community Reintegration Interventions Problem Area: Home Management Home Management Outcomes Improve [place] w/ Home Management Home Management Interventions Meal Preparation,Clothing Care ,Activity Tolerance Work, Leisure Skills Development, House Cleaning,Shopping, Patient/Caregiver Education Problem Area: Safety Safety Outcomes Provide Safe Environment, Perform Selfcare Safely, Demonstrate Good Safety w/ Transfers/Mobility Safety Interventions Identify Fall Risk,[place] Pt. to Environment,Reduce Environmental Hazards,Neuro Check Assessment,Implement Mechanical Devices, i.e. Chair Alarm (Post Fall Update),Re- Educate Patient/Caregiver for Safety (Post Fall Update) Problem Area: Medication Education Medication Education Outcomes Patient/Caregiver will Verbalize Understanding of Medications Medication Education Interventions Explain Administration/Side Effects/Interactions Problem Area: Diabetes Education Diabetes Education Outcomes Demonstrate Knowledge of Resources Availlable in Diabetic Ed. Folder Diabetes Education Interventions Discuss Pathophysiology of Diabetes Problem Area: Oxygenation Oxygenation Outcomes Oxygenation Interventions Problem Area: Cardiovascular Cardiovascular Outcomes Maintain or Improve Cardiovascular Status Cardiovascular Interventions Assess Vital Signs at least Every 4 hours Physician Only Medical Prognosis and Rehabilitation Poor overall medical prognosis considering all comorbidities. Fair rehab prognosis. Will be w/c level. Work on standing,transfers and ADLs. Potential (Completed by Physician) This plan of care has been developed based on the findings from the pre- admission assessment, post admission physician evaluation, information gathered from the assessments from all therapy disciplines and other pertinent clinicians. The plan of care has been reviewed and discussed in collaboration with the interdisciplinary team. The plan of care will be reviewed and updated at least weekly.
[2019-01-31 09:57] LABS: BUN/Creatinine Ratio 70; Blood Urea Nitrogen 28 mg/dL (7-17); Calcium 7.5 mg/dL (8.4-10.2); Hemolysis Index 14
[2019-01-31] MEDS ORDERED: ALBURX 25% (ALBUMIN) IV ONE (10:00)
[2019-01-31] MEDS: VANCOMYCIN 1,500 MG in NACL 0.9% 500 ML 500 ML IV SCH (10:04)
[2019-01-31] MEDS: MUCOMYST INHALATION INHALATION SCH ×2 (10:42→20:32)
[2019-01-31] MEDS: SPIRIVA IH SCH (10:42)
[2019-01-31] MEDS: DUONEB *Not for PRN Use IH SCH ×3 (10:42→20:32)
[2019-01-31] MEDS: XANAX PO PRN ×2 (10:44→21:36)
[2019-01-31 19:10] LABS: Hematocrit 29.6 % (30.3-42.9); Hemoglobin 9.1 gm/dl (10.1-14.3); Mean Corpuscular HGB Conc 31 % (30-34); Mean Corpuscular Volume 79 fl (79-97); Platelet Count 111 K/mm3 (140-440); Red Blood Count 3.77 M/mm3 (3.65-5.03)
[2019-01-31 19:26] LABS: Red Cell Distribution Width 21.6 % (13.2-15.2)
[2019-01-31] MEDS: KCL 10MEQ/100ML 10 MEQ/100 ML BAG IV SCH ×2 (19:35→20:39)
[2019-01-31] MEDS: LANTUS SUB-Q SCH (21:38)
[2019-02-01] MEDS: VANCOMYCIN/NS 1 GM/250 ML 1 GM/250 ML BAG IV SCH ×2 (00:38→13:25)
[2019-02-01] MEDS: NEURONTIN PO SCH ×5 (00:40→20:01)
[2019-02-01] MEDS: HumaLOG SUB-Q SCH ×4 (00:41→23:30)
[2019-02-01] MEDS: PERCOCET 5/325 PO PRN ×5 (04:24→22:32)
[2019-02-01] MEDS: LEVAQUIN PO SCH (04:24)
[2019-02-01] MEDS: LASIX PO SCH ×3 (05:50→23:24)
[2019-02-01 07:34] LABS: Hematocrit 30.2 % (30.3-42.9); Hemoglobin 9.4 gm/dl (10.1-14.3); Mean Corpuscular HGB Conc 31 % (30-34); Mean Corpuscular Volume 78 fl (79-97); Platelet Count 139 K/mm3 (140-440); Red Blood Count 3.86 M/mm3 (3.65-5.03)
[2019-02-01 07:41] LABS: Red Cell Distribution Width 21.3 % (13.2-15.2)
[2019-02-01 08:11] LABS: BUN/Creatinine Ratio 73; Blood Urea Nitrogen 29 mg/dL (7-17); Calcium 7.7 mg/dL (8.4-10.2); Hemolysis Index 1
[2019-02-01] MEDS: ENTRESTO 24 - 26 MG PO SCH ×2 (08:15→21:34)
[2019-02-01] MEDS: MUCOMYST INHALATION INHALATION SCH ×2 (08:26→20:29)
[2019-02-01] MEDS: DUONEB *Not for PRN Use IH SCH ×3 (08:26→20:29)
[2019-02-01] MEDS: ELIQUIS PO SCH ×2 (08:56→21:34)
[2019-02-01] MEDS: ZINC SULFATE PO SCH ×2 (08:56→21:35)
[2019-02-01] MEDS: VITAMIN C PO SCH ×2 (08:57→21:35)
[2019-02-01] MEDS: THERAGRAN-M Tab PO SCH (08:57)
[2019-02-01] MEDS: DELTASONE PO SCH (08:57)
[2019-02-01] MEDS: TOPROL XL PO SCH (08:57)
[2019-02-01] MEDS: CORDARONE PO SCH ×2 (08:58→21:33)
[2019-02-01] MEDS: PAXIL PO SCH (08:58)
[2019-02-01] MEDS: SPIRIVA IH SCH (10:23)
[2019-02-01] MEDS: XANAX PO PRN ×2 (11:50→23:55)
[2019-02-01] MEDS: DICLOFENAC 1% TP SCH ×2 (17:02→21:35)
[2019-02-01] MEDS: LANTUS SUB-Q SCH (21:37)
[2019-02-02] MEDS: NEURONTIN PO SCH ×5 (03:04→23:16)
[2019-02-02] MEDS: PERCOCET 5/325 PO PRN ×5 (03:40→23:15)
[2019-02-02] MEDS: LEVAQUIN PO SCH (03:41)
[2019-02-02] MEDS: VANCOMYCIN/NS 1 GM/250 ML 1 GM/250 ML BAG IV SCH ×3 (03:51→17:38)
[2019-02-02] MEDS: LASIX PO SCH ×2 (05:09→17:37)
[2019-02-02 06:44] LABS: Hematocrit 28.9 % (30.3-42.9); Hemoglobin 8.9 gm/dl (10.1-14.3); Mean Corpuscular HGB Conc 31 % (30-34); Mean Corpuscular Volume 79 fl (79-97); Platelet Count 128 K/mm3 (140-440); Red Blood Count 3.67 M/mm3 (3.65-5.03); Red Cell Distribution Width 21.9 % (13.2-15.2)
[2019-02-02 07:07] LABS: BUN/Creatinine Ratio 60; Blood Urea Nitrogen 30 mg/dL (7-17); Calcium 7.7 mg/dL (8.4-10.2); Hemolysis Index 0
[2019-02-02] MEDS: DUONEB *Not for PRN Use IH SCH ×3 (08:01→19:33)
[2019-02-02] MEDS: MUCOMYST INHALATION INHALATION SCH ×3 (08:03→19:33)
[2019-02-02] MEDS: SPIRIVA IH SCH (08:03)
[2019-02-02] MEDS: VITAMIN C PO SCH ×2 (08:25→21:49)
[2019-02-02] MEDS: PAXIL PO SCH (08:26)
[2019-02-02] MEDS: CORDARONE PO SCH ×2 (08:26→21:39)
[2019-02-02] MEDS: ZINC SULFATE PO SCH ×2 (08:26→21:49)
[2019-02-02] MEDS: TOPROL XL PO SCH (08:26)
[2019-02-02] MEDS: ENTRESTO 24 - 26 MG PO SCH ×2 (08:27→21:39)
[2019-02-02] MEDS: ELIQUIS PO SCH ×3 (08:27→21:50)
[2019-02-02] MEDS: HumaLOG SUB-Q SCH ×4 (08:30→21:47)
[2019-02-02] MEDS: DELTASONE PO SCH (08:47)
[2019-02-02] MEDS: THERAGRAN-M Tab PO SCH (08:48)
[2019-02-02] MEDS: DICLOFENAC 1% TP SCH ×3 (08:50→21:50)
--- NOTE | 2019-02-02 15:57 | Progress Note ---
Subjective Date of service: 02/02/19 Principal diagnosis: Left BKA, debility Interval history: 58-year-old female with recent history of a left BKA revision started to develop extreme pain in the legs and buttocks along with tachycardia. At the ER she was found to have atrial fibrillation with RVR. Her reports she was supposed to be on amiodarone was apparently noncompliant with this. She was started on amiodarone drip. She developed an acute mental status change but workup was negative for any acute changes. She is transferred to the ICU placed on BiPAP with some improvements noted. She developed MRSA bacteremia and was started on vancomycin. On 01/21 she was noted to have a right brachial DVT and was placed on a heparin drip. This was not seen in paperwork that we reviewed prior to admission and she was not transferred on any anticoagulation. There was mention under atrial fibrillation that she was not a good candidate for anticoagulation, however with both atrial fibrillation and a DVT she is at a higher risk for an embolic event. Discussed with the patient risks and benefits and have started her on Eliquis. She continued to have persistent respiratory issues with w heezing and shortness of breath. She was started on Entresto along with IV steroids and is now on oral steroid wean. Patient is participating in therapy and making slow progress. Taking rest breaks as needed. +BM. Denies palpitations, N/V, diarrhea. Still having cough with sputum at times but improving. STill on hypotensive side with some dizziness reported this weekend. Spoke to PCP/hematology about thrombocytopenia and DVT as well as hypotension. He stated [facility] saw her at OSH. WIll consult both for assistance. HR has been fairly elevated considering she is on amiodarone and metoprolol. Started tele monitoring to monitor for any episodes of afib/rvr. No complaints of head or back pain. Continue to monitor. All records, vitals, labs and medications were reviewed. No other issues per patient, nursing or therapy. Objective - Exam Narrative Exam: MUSCULOSKELETAL SPECIALTY EXAM CONSTITUTIONAL: Well developed, well nourished, appropriately groomed, obese EENT: EOMI. Hearing intact to soft voice RESPIRATORY: Rhonchi bilaterally, slightly better, no increased work of breathing, on nasal cannula CARDIOVASCULAR: Regular Rate/ Rhythm, no tenderness in BUE or BLE. 3+ pitting edema in BLE. All extremities warm. Slight oozing noted on RUE, no epistaxis noted today GI: + bowel sounds, soft, NTTP, nondistended, protuberant INTEGUMENTARY: Widespread bruising, sores, and lesions, no rash or masses noted in extremities. MUSCULOSKELETAL: BUE and BLE normal without defect, crepitus, subluxation, effusion, arthritic changes or TTP except for Left BKA and right toe amputations as noted, and right anterior shoulder TTP BUE 4/5, good ROM, with normal tone. BLE 3/5 decreased ROM, with normal tone NEURO: CN 2-12 grossly intact. Sensation intact but altered in all extremities. No tremor noted in 4 extremities. POSTURE and GAIT: Sitting posture and fair. Balance appears poor. Gait/standing deferred until seen with therapy. PSYCH: Alert, oriented x3, affect appears anxious. Insight appears intact. - Constitutional Vitals: Vital Signs - 12hr 02/02/19 02/02/19 02/02/19 08:09 08:15 12:00 Temperature 36.5 C Pulse Rate 97 H Pulse Rate [ 88 Anterior] Respiratory 20 Rate Respiratory 18 Rate [Anterior] Blood Pressure 109/71 [Right] O2 Sat by Pulse 97 98 Oximetry 02/02/19 13:30 Temperature Pulse Rate Pulse Rate [ 100 H Anterior] Respiratory Rate Respiratory 18 Rate [Anterior] Blood Pressure [Right] O2 Sat by Pulse Oximetry - Allied health notes Allied health notes reviewed: nursing, PT, OT FIMS assessment as documented by PT/OT/ST: Grooming Patient cleans teeth/dentures: Yes Patient epperson/brushes hair: Yes Patient washes, rinses and Yes dries face: Patient washes, rinses and Yes dries hands: Patient shaves: No Patient applies make-up: No Patient performs (no make-up/ 10/02 (100%) shaving): Grooming FIM Score 4. Minimal Assistance (Patient = 75% or more. Needs touching.) Social interaction/Memory/Problem solving Social Interaction FIM Score 5. Supervision (Needs supv. <10%. Needs encouragement to participate.) Memory FIM Score 4. Minimal Assistance (Recognizes and remembers 75-90%.) Problem Solving FIM Score 4. Minimal Assistance (Solves routine problems 75-90%.) Transfers Mode of Locomotion: Wheelchair Bed/Chair/Wheelchair Transfers 1. Total Assistance (Patient less than 25%. 2 or FIM Score more persons.) Locomotion- Stairs Stairs FIM Score 0. Activity does not occur Locomotion- walk/wheelchair Most Frequent Mode of Wheelchair Locomotion: Ambulation Distance 0 Walking FIM Score 0. Activity does not occur Wheelchair Propulsion Distance 8 Wheelchair FIM Score 1. Total Assistance (Pt. < 25%, 2 or more person assist, or <50 ft.) Eating Eating FIM Score 5. Supervision/Set-Up (Needs help w/ containers, cutting meat, etc.) Dressing-Upper body Patient retrieves clothing No items: Patient applies/removes UE No prosthesis or orthosis: Upper Body Dressing FIM Score 4. Minimal Assistance (Patient = 75% or more. Needs touching.) Dressing-lower body Patient retrieves clothing No items: Patient applies/removes LE No prosthesis or orthosis: Lower Body Dressing FIM Score 1. Total Assistance (Patient less than 25%) - Labs CBC & Chem 7: 02/02/19 06:30 02/02/19 06:30 Labs: Laboratory Results - last 72 hr 01/30/19 01/30/19 01/30/19 15:26 16:03 21:26 WBC RBC Hgb 11.4 Hct 36.6 MCV MCH MCHC RDW Plt Count Sodium Potassium Chloride Carbon Dioxide Anion Gap BUN Creatinine Estimated GFR BUN/Creatinine Ratio Glucose POC Glucose 226 H 277 H Calcium Magnesium Vancomycin Trough 01/31/19 01/31/19 01/31/19 07:37 08:55 08:55 WBC RBC Hgb Hct MCV MCH MCHC RDW Plt Count Sodium 141 Potassium 3.4 L Chloride 99.0 Carbon Dioxide 30 Anion Gap 15 BUN 28 H Creatinine 0.4 L Estimated GFR > 60 BUN/Creatinine Ratio 70 Glucose 148 H POC Glucose 140 H Calcium 7.5 L Magnesium Vancomycin Trough 23.0 H 01/31/19 01/31/19 01/31/19 12:23 16:44 19:00 WBC 8.6 RBC 3.77 Hgb 9.1 L Hct 29.6 L D MCV 79 MCH 24 L MCHC 31 RDW 21.6 H Plt Count 111 L Sodium Potassium Chloride Carbon Dioxide Anion Gap BUN Creatinine Estimated GFR BUN/Creatinine Ratio Glucose POC Glucose 102 191 H Calcium Magnesium Vancomycin Trough 01/31/19 02/01/19 02/01/19 21:14 07:10 07:10 WBC 9.6 RBC 3.86 Hgb 9.4 L Hct 30.2 L MCV 78 L MCH 24 L MCHC 31 RDW 21.3 H Plt Count 139 L Sodium 140 Potassium 3.9 Chloride 96.3 L Carbon Dioxide 33 H Anion Gap 15 BUN 29 H Creatinine 0.4 L Estimated GFR > 60 BUN/Creatinine Ratio 73 Glucose 73 POC Glucose 210 H Calcium 7.7 L Magnesium 2.00 Vancomycin Trough 02/01/19 02/01/19 02/01/19 07:33 11:43 16:31 WBC RBC Hgb Hct MCV MCH MCHC RDW Plt Count Sodium Potassium Chloride Carbon Dioxide Anion Gap BUN Creatinine Estimated GFR BUN/Creatinine Ratio Glucose POC Glucose 74 85 138 H Calcium Magnesium Vancomycin Trough 02/01/19 02/02/19 02/02/19 21:08 06:30 06:30 WBC 9.7 RBC 3.67 Hgb 8.9 L Hct 28.9 L MCV 79 MCH 24 L MCHC 31 RDW 21.9 H Plt Count 128 L Sodium 141 Potassium 3.6 Chloride 98.6 Carbon Dioxide 33 H Anion Gap 13 BUN 30 H Creatinine 0.5 L Estimated GFR > 60 BUN/Creatinine Ratio 60 Glucose 82 POC Glucose 292 H Calcium 7.7 L Magnesium Vancomycin Trough 02/02/19 02/02/19 08:00 11:47 WBC RBC Hgb Hct MCV MCH MCHC RDW Plt Count Sodium Potassium Chloride Carbon Dioxide Anion Gap BUN Creatinine Estimated GFR BUN/Creatinine Ratio Glucose POC Glucose 84 84 Calcium Magnesium Vancomycin Trough Assessment and Plan Left BKA: Continue supportive care. We'll continue to work with therapy on transfers in order to facilitate safe transition home. At this point based on the patient's comorbidities it does not appear that she will be a good candidate for a prosthesis. We will likely discharge home at wheelchair level. COPD: Continue respiratory support with prednisone and inhalers. DuoNeb. Respiratory therapy eval and nasal cannula for oxygen. CHF: Continue diuresis, monitor renal function, continue Entresto - consult Paul. Heart due to hypotension to see if there are alternatives Hypertension: Continue medications and adjust as needed, hypotensive currently. Have asked about placement and size of cuff Diabetes, poorly controlled: Continue controlled carb diet, continue insulin monitor and adjust as needed Atrial fibrillation: Continue rate control. Eliquis started for anticoagulation Coronary artery disease: ASA and plavix d/c'd due to thrombocytopenia and minor bleeding. Monitor for any signs of bleeding. Monitor for any chest pain or cardiac symptoms. Peripheral vascular disease: Continue aspirin monitor for any signs of bleeding. Monitor H&H DVT R brachial vein: Discussed risk and benefits with patient, confirmed with Selina resendez, started Eliquis. Monitor for any signs of bleeding Morbid obesity: Discussed weight loss, lifestyle change, dietary modification Suspected pneumonia: Complete Levaquin, CXR today. Start mucomyst MRSA bacteremia: Complete vancomycin. Patient is on isolation. Last blood culture was negative Anxiety/depression: continue Xanax and Paxil Right shoulder pain: Chronic in nature. Speed's POS. Voltaren gel, modalities Z73.6 ADL dysfunction: OT will work on improving ability to perform ADLs (including assistive devices) to increase independence and decrease caregiver burden and improve functional transfers and mobility training. R26.2 Difficulty walking: PT will work on gait training and proper use of assistive devices and advance as appropriate to use of stairs and outside ambulation on uneven surfaces. R26.81 Unsteadiness on feet: PT will work on improving static and dynamic sitt ing and standing balance as well as proper use of assistive devices to decrease risk of falls. R26.89 Abnormality of gait: PT will work to improve safety and efficiency of gait through neuromotor training and gait training along with instruction on proper use of assistive devices. M62.81 Muscle weakness: PT & OT will work on strengthening exercises to improve functional strength including mixture of closed and open kinetic chain exercises. R53.81 Debility: PT & OT will work on improving overall functional status to improve participation with ADLs, mobility and social involvement. R53.83 Fatigue: PT & OT will work on improving endurance through aerobic exercises and therapeutic activity while monitoring patients tolerance for activity and vital signs as needed. DVT ppx: Started on Eliquis for RUE DVT Pain: Continue physical modalities in therapy and pain medications as needed to achieve functional pain control. Patient remains on Percocet for chronic pain Sleep: Monitor and address as needed. Bowel: Monitor and address as needed. Appetite: Monitor and address as needed. Discharge planning: Pending therapy progress and care plan meeting. Will continue discussion with therapy team, SW, patient and family. Restrictions/ Precautions: Falls WB status: FWB Functional Hx: ADLs: Independent Cognition: Independent Mobility: No AD Barriers to Discharge: Decreased mobility and ability to perform self care, balance deficits, weakness Estimated Length of Stay: 1014 days Discharge Destination: Home with family
[2019-02-02] MEDS: LANTUS SUB-Q SCH (21:51)
[2019-02-03] MEDS: NEURONTIN PO SCH ×3 (04:59→18:57)
[2019-02-03] MEDS: PERCOCET 5/325 PO PRN ×4 (05:01→21:37)
[2019-02-03] MEDS: LASIX PO SCH ×2 (05:03→17:00)
[2019-02-03] MEDS: VANCOMYCIN/NS 1 GM/250 ML 1 GM/250 ML BAG IV SCH ×2 (05:40→22:26)
[2019-02-03] MEDS: HumaLOG SUB-Q SCH ×4 (08:10→22:27)
[2019-02-03] MEDS: ENTRESTO 24 - 26 MG PO SCH ×2 (08:17→21:40)
[2019-02-03] MEDS: TOPROL XL PO SCH (08:18)
[2019-02-03] MEDS: CORDARONE PO SCH ×2 (08:19→21:39)
[2019-02-03] MEDS: ELIQUIS PO SCH ×2 (09:17→21:38)
[2019-02-03] MEDS: DELTASONE PO SCH (09:17)
[2019-02-03] MEDS: THERAGRAN-M Tab PO SCH (09:17)
[2019-02-03] MEDS: ZINC SULFATE PO SCH ×2 (09:18→21:38)
[2019-02-03] MEDS: VITAMIN C PO SCH ×2 (09:18→21:38)
[2019-02-03] MEDS: PAXIL PO SCH (09:22)
[2019-02-03] MEDS: DICLOFENAC 1% TP SCH ×4 (09:29→21:39)
--- NOTE | 2019-02-03 09:41 | Progress Note ---
Subjective Date of service: 02/03/19 Principal diagnosis: Left BKA, debility Interval history: 58-year-old female with recent history of a left BKA revision started to develop extreme pain in the legs and buttocks along with tachycardia. At the ER she was found to have atrial fibrillation with RVR. Her reports she was supposed to be on amiodarone was apparently noncompliant with this. She was started on amiodarone drip. She developed an acute mental status change but workup was negative for any acute changes. She is transferred to the ICU placed on BiPAP with some improvements noted. She developed MRSA bacteremia and was started on vancomycin. On 01/21 she was noted to have a right brachial DVT and was placed on a heparin drip. This was not seen in paperwork that we reviewed prior to admission and she was not transferred on any anticoagulation. There was mention under atrial fibrillation that she was not a good candidate for anticoagulation, however with both atrial fibrillation and a DVT she is at a higher risk for an embolic event. Discussed with the patient risks and benefits and have started her on Eliquis. She continued to have persistent respiratory issues with w heezing and shortness of breath. She was started on Entresto along with IV steroids and is now on oral steroid wean. Patient is participating in therapy and making slow progress. Taking rest breaks as needed. +BM. Denies palpitations, N/V, diarrhea. Still having cough with sputum at times but improving. STill on hypotensive side with some dizziness reported. HR has been fairly elevated considering she is on amiodarone and metoprolol. Started tele monitoring to monitor for any episodes of afib/rvr. Appreciate [facility] assistance. Continue to monitor. All records, vitals, labs and medications were reviewed. No other issues per patient, nursing or therapy. Objective - Exam Narrative Exam: MUSCULOSKELETAL SPECIALTY EXAM CONSTITUTIONAL: Well developed, well nourished, appropriately groomed, obese EENT: EOMI. Hearing intact to soft voice RESPIRATORY: Rhonchi bilaterally, slightly better, no increased work of breathing, on nasal cannula CARDIOVASCULAR: IR/IR Rhythm, tachycardic at times, no tenderness in BUE or BLE. 3+ pitting edema in BLE. All extremities warm. No bleeding noted today GI: + bowel sounds, soft, NTTP, nondistended, protuberant INTEGUMENTARY: Widespread bruising, sores, and lesions, no rash or masses noted in extremities. MUSCULOSKELETAL: BUE and BLE normal without defect, crepitus, subluxation, effusion, arthritic changes or TTP except for Left BKA and right toe amputations as noted, and right anterior shoulder TTP BUE 4/5, good ROM, with normal tone. BLE 3/5 decreased ROM, with normal tone NEURO: CN 2-12 grossly intact. Sensation intact but altered in all extremities. No tremor noted in 4 extremities. POSTURE and GAIT: Sitting posture and fair. Balance appears poor. Gait/standing deferred until seen with therapy. PSYCH: Alert, oriented x3, affect appears anxious. Insight appears intact. - Constitutional Vitals: Vital Signs - 12hr 02/02/19 02/02/19 02/03/19 23:15 23:17 05:01 Temperature 36.7 C Pulse Rate 100 H Respiratory 20 18 18 Rate Blood Pressure 128/84 O2 Sat by Pulse 95 Oximetry 02/03/19 07:43 Temperature 36.7 C Pulse Rate 101 H Respiratory 20 Rate Blood Pressure 83/47 O2 Sat by Pulse 95 Oximetry - Allied health notes Allied health notes reviewed: nursing, PT, OT FIMS assessment as documented by PT/OT/ST: Grooming Patient cleans teeth/dentures: Yes Patient eppersno/brushes hair: Yes Patient washes, rinses and Yes dries face: Patient washes, rinses and Yes dries hands: Patient shaves: No Patient applies make-up: No Patient performs (no make-up/ /4 (100%) shaving): Grooming FIM Score 4. Minimal Assistance (Patient = 75% or more. Needs touching.) Social interaction/Memory/Problem solving Social Interaction FIM Score 5. Supervision (Needs supv. <10%. Needs encouragement to participate.) Memory FIM Score 4. Minimal Assistance (Recognizes and remembers 75-90%.) Problem Solving FIM Score 4. Minimal Assistance (Solves routine problems 75-90%.) Transfers Mode of Locomotion: Wheelchair Bed/Chair/Wheelchair Transfers 1. Total Assistance (Patient less than 25%. 2 or FIM Score more persons.) Locomotion- Stairs Stairs FIM Score 0. Activity does not occur Locomotion- walk/wheelchair Most Frequent Mode of Wheelchair Locomotion: Ambulation Distance 0 Walking FIM Score 0. Activity does not occur Wheelchair Propulsion Distance 8 Wheelchair FIM Score 1. Total Assistance (Pt. < 25%, 2 or more person assist, or <50 ft.) Eating Eating FIM Score 5. Supervision/Set-Up (Needs help w/ containers, cutting meat, etc.) Dressing-Upper body Patient retrieves clothing No items: Patient applies/removes UE No prosthesis or orthosis: Upper Body Dressing FIM Score 4. Minimal Assistance (Patient = 75% or more. Needs touching.) Dressing-lower body Patient retrieves clothing No items: Patient applies/removes LE No prosthesis or orthosis: Lower Body Dressing FIM Score 1. Total Assistance (Patient less than 25%) - Labs CBC & Chem 7: 02/04/19 07:04 02/04/19 07:04 Labs: Laboratory Results - last 72 hr 01/31/19 01/31/19 01/31/19 08:55 08:55 12:23 WBC RBC Hgb Hct MCV MCH MCHC RDW Plt Count Sodium 141 Potassium 3.4 L Chloride 99.0 Carbon Dioxide 30 Anion Gap 15 BUN 28 H Creatinine 0.4 L Estimated GFR > 60 BUN/Creatinine Ratio 70 Glucose 148 H POC Glucose 102 Calcium 7.5 L Magnesium Vancomycin Trough 23.0 H 01/31/19 01/31/19 01/31/19 16:44 19:00 21:14 WBC 8.6 RBC 3.77 Hgb 9.1 L Hct 29.6 L D MCV 79 MCH 24 L MCHC 31 RDW 21.6 H Plt Count 111 L Sodium Potassium Chloride Carbon Dioxide Anion Gap BUN Creatinine Estimated GFR BUN/Creatinine Ratio Glucose POC Glucose 191 H 210 H Calcium Magnesium Vancomycin Trough 02/01/19 02/01/19 02/01/19 07:10 07:10 07:33 WBC 9.6 RBC 3.86 Hgb 9.4 L Hct 30.2 L MCV 78 L MCH 24 L MCHC 31 RDW 21.3 H Plt Count 139 L Sodium 140 Potassium 3.9 Chloride 96.3 L Carbon Dioxide 33 H Anion Gap 15 BUN 29 H Creatinine 0.4 L Estimated GFR > 60 BUN/Creatinine Ratio 73 Glucose 73 POC Glucose 74 Calcium 7.7 L Magnesium 2.00 Vancomycin Trough 02/01/19 02/01/19 02/01/19 11:43 16:31 21:08 WBC RBC Hgb Hct MCV MCH MCHC RDW Plt Count Sodium Potassium Chloride Carbon Dioxide Anion Gap BUN Creatinine Estimated GFR BUN/Creatinine Ratio Glucose POC Glucose 85 138 H 292 H Calcium Magnesium Vancomycin Trough 02/02/19 02/02/19 02/02/19 06:30 06:30 08:00 WBC 9.7 RBC 3.67 Hgb 8.9 L Hct 28.9 L MCV 79 MCH 24 L MCHC 31 RDW 21.9 H Plt Count 128 L Sodium 141 Potassium 3.6 Chloride 98.6 Carbon Dioxide 33 H Anion Gap 13 BUN 30 H Creatinine 0.5 L Estimated GFR > 60 BUN/Creatinine Ratio 60 Glucose 82 POC Glucose 84 Calcium 7.7 L Magnesium Vancomycin Trough 02/02/19 02/02/19 02/02/19 11:47 16:03 21:47 WBC RBC Hgb Hct MCV MCH MCHC RDW Plt Count Sodium Potassium Chloride Carbon Dioxide Anion Gap BUN Creatinine Estimated GFR BUN/Creatinine Ratio Glucose POC Glucose 84 207 H 190 H Calcium Magnesium Vancomycin Trough 02/03/19 07:50 WBC RBC Hgb Hct MCV MCH MCHC RDW Plt Count Sodium Potassium Chloride Carbon Dioxide Anion Gap BUN Creatinine Estimated GFR BUN/Creatinine Ratio Glucose POC Glucose 151 H Calcium Magnesium Vancomycin Trough Assessment and Plan Left BKA: Continue supportive care. We'll continue to work with therapy on transfers in order to facilitate safe transition home. At this point based on the patient's comorbidities it does not appear that she will be a good candidate for a prosthesis. We will likely discharge home at wheelchair level. COPD: Continue respiratory support with prednisone and inhalers. DuoNeb. Respiratory therapy eval and nasal cannula for oxygen. CHF: Continue diuresis, monitor renal function, continue Entresto - consult Paul. Heart due to hypotension to see if there are alternatives Hypertension: Continue medications and adjust as needed, hypotensive currently. Have asked about placement and size of cuff - not sure I believe some of the values Diabetes, poorly controlled: Continue controlled carb diet, continue insulin monitor and adjust as needed Atrial fibrillation: Continue rate control. Eliquis started for anticoagulation Coronary artery disease: ASA and plavix d/c'd due to thrombocytopenia and minor bleeding. Monitor for any signs of bleeding. Monitor for any chest pain or cardiac symptoms. Peripheral vascular disease: Continue aspirin monitor for any signs of bleeding. Monitor H&H DVT R brachial vein: Discussed risk and benefits with patient, confirmed with Doppler, started Eliquis. Monitor for any signs of bleeding Morbid obesity: Discussed weight loss, lifestyle change, dietary modification Suspected pneumonia: Complete Levaquin, CXR today. Start mucomyst MRSA bacteremia: Complete vancomycin. Patient is on isolation. Last blood culture was negative Anxiety/depression: continue Xanax and Paxil Right shoulder pain: Chronic in nature. Speed's POS. Voltaren gel, modalities Z73.6 ADL dysfunction: OT will work on improving ability to perform ADLs (including assistive devices) to increase independence and decrease caregiver burden and improve functional transfers and mobility training. R26.2 Difficulty walking: PT will work on gait training and proper use of assistive devices and advance as appropriate to use of stairs and outside ambulation on uneven surfaces. R26.81 Unsteadiness on feet: PT will work on improving static and dynamic sitting and standing balance as well as proper use of assistive devices to decrease risk of falls. R26.89 Abnormality of gait: PT will work to improve safety and efficiency of gait through neuromotor training and gait training along with instruction on proper use of assistive devices. M62.81 Muscle weakness: PT & OT will work on strengthening exercises to improve functional strength including mixture of closed and open kinetic chain exercises. R53.81 Debility: PT & OT will work on improving overall functional status to improve participation with ADLs, mobility and social involvement. R53.83 Fatigue: PT & OT will work on improving endurance through aerobic exercises and therapeutic activity while monitoring patients tolerance for activity and vital signs as needed. DVT ppx: Started on Eliquis for RUE DVT Pain: Continue physical modalities in therapy and pain medications as needed to achieve functional pain control. Patient remains on Percocet for chronic pain Sleep: Monitor and address as needed. Bowel: Monitor and address as needed. Appetite: Monitor and address as needed. Discharge planning: Pending therapy progress and care plan meeting. Will continue discussion with therapy team, SW, patient and family. Restrictions/ Precautions: Falls WB status: FWB Functional Hx: ADLs: Independent Cognition: Independent Mobility: No AD Barriers to Discharge: Decreased mobility and ability to perform self care, balance deficits, weakness Estimated Length of Stay: 1014 days Discharge Destination: Home with family
--- NOTE | 2019-02-03 10:40 | Consultation ---
History of Present Illness Consult date: 02/03/19 Consult reason: atrial fibrillation, congestive heart failure, hypotension History of present illness: This is a 58-year old woman with morbid obesity, coronary artery disease with three-way coronary bypass in 2013, ischemic cardiomyopathy with left ventricular ejection fraction 30-35%. Patient also has persistent atrial flutter fibrillation and is on oral anticoagulation with Eliquis. Co-morbidities includes cor [place], severe pulmonary hypertension, chronic lung disease, hypertension, prior CVA, diabetes, and peripheral vascular disease. Patient is status post recent left BKA and is admitted to acute rehab. The patient has no chest pain, no shortness of breath, no palpitations. There is no ECG available for review but telemetry shows atrial fibrillation, rate 101. A cardiac consultation has been requested for further management. Past History Past Medical History: atrial fib, CAD, COPD (home oxygen), diabetes, DVT, heart failure, hypertension, hyperlipidemia, PVD, stroke, other (Depression/anxiety, anemia) Past Surgical History: CABG, Other (Left BKA, right toe amputations, ) Social history: lives with family, smoking, full code. denies: alcohol abuse, prescription drug abuse, IV drug use Family history: CAD, cancer Medications and Allergies Allergies Allergy/AdvReac Type Severity Reaction Status Date / Time Penicillins Allergy Itching Verified 04/03/18 12:43 Home Medications Medication Instructions Recorded Confirmed Last Taken Type Aspirin [Aspirin BABY CHEW TAB] 81 mg PO DAILY #100 tab.chew 09/07/18 01/29/19 U nknown Rx AtorvaSTATin [Lipitor] 40 mg PO QHS #30 tablet 09/07/18 01/29/19 Unknown Rx Gabapentin [Neurontin] 300 mg PO TID #90 capsule 09/07/18 01/29/19 Unknown Rx Insulin Glargine [Lantus VIAL] 20 units SUB-Q QHS #1 vial 09/07/18 01/29/19 Unknown Rx Ipratropium/Albuterol Sulfate 1 ampul IH QIDRT #120 ampul.neb 09/07/18 01/29/19 Unknown Rx [DUONEB *Not for PRN Use*] Furosemide [Lasix TAB] 40 mg PO BID #60 tablet 10/08/18 01/29/19 Unknown Rx LORazepam [Ativan] 1 mg PO Q4H PRN #14 tablet 10/08/18 01/29/19 Unknown Rx Lisinopril [Prinivil] 2.5 mg PO QDAY 10/16/18 01/29/19 Unknown History ALBUTEROL NEB's [Proventil 0.083% 2.5 mg IH Q4HRT PRN nebu 10/31/18 01/29/19 Unknown Rx NEBS] Arformoterol Nebu [Brovana Nebu] 15 mcg IH Q12HRT ml 10/31/18 01/29/19 Unknown Rx Aspirin [Aspirin BABY CHEW TAB] 81 mg PO DAILY tab.chew 10/31/18 01/29/19 Unknown Rx AtorvaSTATin [Lipitor] 40 mg PO QHS tablet 10/31/18 01/29/19 Unknown Rx Budesonide [Pulmicort Respules] 0.5 mg IH Q12HRT nebu 10/31/18 01/29/19 Unknown Rx Digoxin [Lanoxin] 0.25 mg PO DAILY@1700 tablet 10/31/18 01/29/19 Unknown Rx Gabapentin [Neurontin] 300 mg PO TID capsule 10/31/18 01/29/19 Unknown Rx HYDROcodone/APAP 5-325 [[place] 1 each PO Q6H PRN #20 tablet 10/31/18 01/29/19 Unknown Rx 5-325 mg TAB] Insulin Glargine [Lantus VIAL] 20 units SUB-Q QHS units 10/31/18 01/29/19 Unknown Rx LORazepam [Ativan] 1 mg PO Q4H PRN tablet 10/31/18 01/29/19 Unknown Rx Lisinopril [Zestril TAB] 2.5 mg PO QDAY tablet 10/31/18 01/29/19 Unknown Rx Metoprolol [Lopressor TAB] 50 mg PO Q8HR tablet 10/31/18 01/29/19 Unknown Rx Zolpidem [Ambien] 5 mg PO QHS PRN tablet 10/31/18 01/29/19 Unknown Rx predniSONE [Deltasone] 20 mg PO QDAY tablet 10/31/18 01/29/19 Unknown Rx oxyCODONE /ACETAMINOPHEN [Percocet 1 tab PO Q6HR PRN #15 tablet 11/05/18 01/29/19 Unknown Rx 5/325] Active Meds: Active Medications Acetylcysteine (Mucomyst Inhalation) 200 mg INHALATION Q12HRT [facility] Stop: 02/06/19 11:44 Last Admin: 02/02/19 19:33 Dose: 200 mg Documented by: Albuterol/Ipratropium (Duoneb *Not For Prn Use*) 1 ampul IH TIDRT [facility] Last Admin: 02/02/19 19:33 Dose: 1 ampul Documented by: Alprazolam (Xanax) 0.5 mg PO BID PRN PRN Reason: Anxiety Last Admin: 02/01/19 23:55 Dose: 0.5 mg Documented by: Amiodarone HCl (Cordarone) 200 mg PO BID [facility] Last Admin: 02/03/19 08:19 Dose: Not Given Documented by: Apixaban (Eliquis) 5 mg PO Q12HR [facility]; Protocol Last Admin: 02/03/19 09:17 Dose: 5 mg Documented by: Ascorbic Acid (Vitamin C) 500 mg PO BID [facility] Last Admin: 02/03/19 09:18 Dose: 500 mg Documented by: Atorvastatin Calcium (Lipitor) 40 mg PO QHS [facility] Last Admin: 02/02/19 21:49 Dose: 40 mg Documented by: Bisacodyl (Dulcolax) 10 mg HI QDAY PRN PRN Reason: Constipation Dextrose (D50w (25gm) Syringe) 50 ml IV PRN PRN PRN Reason: Hypoglycemia Diclofenac Sodium (Diclofenac 1%) 1 applic TP TID [facility] Last Admin: 02/03/19 09:29 Dose: 1 applic Documented by: Ergocalciferol (Vitamin D2) 50,000 unit PO [facility] Furosemide (Lasix) 40 mg PO 0600,1800 [facility] Last Admin: 02/03/19 05:03 Dose: Not Given Documented by: Gabapentin (Neurontin) 300 mg PO Q6HR [facility] Last Admin: 02/03/19 04:59 Dose: 300 mg Documented by: Hydralazine HCl (Apresoline) 10 mg PO Q6H PRN PRN Reason: Hypertension Vancomycin HCl (Vancomycin/Ns 1 Gm/250 Ml) 1 gm in 250 mls @ 166.667 mls/hr IV Q12HR@0600,1800 [facility] Stop: 02/07/19 20:59 Last Admin: 02/03/19 05:40 Dose: 166.667 mls/hr Documented by: Insulin Glargine (Lantus) 20 units SUB-Q QHS [facility] Last Admin: 02/02/19 21:51 Dose: 20 units Documented by: Insulin Human Lispro (Humalog) 0 unit SUB-Q ACHS [facility]; Protocol Last Admin: 02/02/19 21:47 Dose: Not Given Documented by: Metoprolol Succinate (Toprol Xl) 100 mg PO QDAY [facility] Last Admin: 02/03/19 08:18 Dose: Not Given Documented by: Multivitamins/Minerals (Theragran-M Tab) 1 each PO QDAY [facility] Last Admin: 02/03/19 09:17 Dose: 1 each Documented by: Ondansetron HCl (Zofran Odt) 4 mg PO Q8H PRN PRN Reason: Nausea And Vomiting Last Admin: 01/31/19 02:32 Dose: 4 mg Documented by: Oxycodone/Acetaminophen (Percocet 5/325) 1 tab PO Q4H PRN PRN Reason: Pain, Moderate (4-6) Last Admin: 02/03/19 05:01 Dose: 1 tab Documented by: Paroxetine HCl (Paxil) 10 mg PO QDAY [facility] Last Admin: 02/03/19 09:22 Dose: 10 mg Documented by: Polyethylene Glycol (Miralax 3350) 17 gm PO QDAY PRN PRN Reason: Constipation Prednisone (Deltasone) 20 mg PO QDAY [facility] Stop: 02/06/19 07:59 Last Admin: 02/03/19 09:17 Dose: 20 mg Documented by: Prednisone (Deltasone) 10 mg PO QDAY [facility] Stop: 02/11/19 07:59 Tiotropium [place] (Spiriva) 1 puff IH Q24HRT [facility] Last Admin: 02/02/19 08:03 Dose: Not Given Documented by: Zinc Sulfate (Zinc Sulfate) 220 mg PO BID [facility] Last Admin: 02/03/19 09:18 Dose: 220 mg Documented by: Physical Examination Vital Signs Temp Pulse Resp BP Pulse Ox 97.9 F 72 20 111/63 95 01/28/19 17:00 01/28/19 17:00 01/28/19 17:00 01/28/19 17:00 01/28/19 17:00 General appearance: no acute distress HEENT: Positive: PERRL Cardiac: Positive: irregularly irregular Results 08/05/19 06:30 02/02/19 06:30 Assessment and Plan s/p left BKA Permanent Atrial fib/flutter on metoprolol and amiodarone on eliquis for oral anticoagulation therapy. Ischemic cardiomyopathy with EF 30-35% CAD s/p 3v CABG in 2013 Cor [place] COPD Severe pulmonary hypertension Tobacco abuse Htn DM PAD Chronic non-compliance with medical therapy and medical follow up Recommend: Continue medical therapy for permanent atrial fibrillation, ischemic cardiomyopathy and coronary artery disease.
[2019-02-03] MEDS: DUONEB *Not for PRN Use IH SCH ×3 (11:05→21:19)
[2019-02-03] MEDS: SPIRIVA IH SCH (11:06)
[2019-02-03] MEDS: MUCOMYST INHALATION INHALATION SCH ×2 (11:07→21:19)
[2019-02-03 12:54] LABS: Mean Corpuscular HGB Conc 30 % (30-34); Mean Corpuscular Volume 80 fl (79-97); Platelet Count 142 K/mm3 (140-440); Red Blood Count 3.93 M/mm3 (3.65-5.03)
[2019-02-03 12:59] LABS: Hematocrit 31.3 % (30.3-42.9); Hemoglobin 9.4 gm/dl (10.1-14.3); Red Cell Distribution Width 22.6 % (13.2-15.2)
[2019-02-03 13:16] LABS: BUN/Creatinine Ratio 60; Blood Urea Nitrogen 24 mg/dL (7-17); Calcium 7.7 mg/dL (8.4-10.2); Hemolysis Index 10
[2019-02-03] MEDS: XANAX PO PRN (18:57)
[2019-02-03] MEDS: LANTUS SUB-Q SCH (22:26)
[2019-02-04] MEDS: NEURONTIN PO SCH ×4 (01:16→17:50)
[2019-02-04] MEDS: PERCOCET 5/325 PO PRN ×4 (04:09→20:02)
[2019-02-04] MEDS: VANCOMYCIN/NS 1 GM/250 ML 1 GM/250 ML BAG IV SCH ×2 (05:36→17:50)
[2019-02-04] MEDS: LASIX PO SCH ×2 (05:36→17:50)
[2019-02-04 07:21] LABS: Hematocrit 27.8 % (30.3-42.9); Hemoglobin 8.8 gm/dl (10.1-14.3); Mean Corpuscular HGB Conc 32 % (30-34); Mean Corpuscular Volume 79 fl (79-97); Platelet Count 120 K/mm3 (140-440); Red Blood Count 3.53 M/mm3 (3.65-5.03)
[2019-02-04 07:24] LABS: Red Cell Distribution Width 22.6 % (13.2-15.2)
[2019-02-04] MEDS: TOPROL XL PO SCH (09:04)
[2019-02-04] MEDS: ZINC SULFATE PO SCH ×2 (09:05→21:55)
[2019-02-04] MEDS: PAXIL PO SCH (09:05)
[2019-02-04] MEDS: DELTASONE PO SCH (09:05)
[2019-02-04] MEDS: VITAMIN D2 PO SCH (09:05)
[2019-02-04] MEDS: ELIQUIS PO SCH ×2 (09:05→21:55)
[2019-02-04] MEDS: THERAGRAN-M Tab PO SCH (09:05)
[2019-02-04] MEDS: ENTRESTO 24 - 26 MG PO SCH ×2 (09:05→21:55)
[2019-02-04] MEDS: HumaLOG SUB-Q SCH ×4 (09:06→21:54)
[2019-02-04] MEDS: CORDARONE PO SCH ×2 (09:06→21:55)
[2019-02-04] MEDS: VITAMIN C PO SCH ×2 (09:06→21:55)
[2019-02-04] MEDS: DICLOFENAC 1% TP SCH ×3 (09:11→22:00)
[2019-02-04] MEDS: SPIRIVA IH SCH (09:16)
[2019-02-04] MEDS: DUONEB *Not for PRN Use IH SCH ×3 (09:16→21:08)
[2019-02-04] MEDS: MUCOMYST INHALATION INHALATION SCH ×2 (09:17→21:07)
[2019-02-04 09:23] LABS: BUN/Creatinine Ratio 53; Blood Urea Nitrogen 21 mg/dL (7-17); Calcium 7.4 mg/dL (8.4-10.2); Hemolysis Index 1
[2019-02-04] MEDS ORDERED: VITAMIN D2 PO SCH (10:00)
--- NOTE | 2019-02-04 10:11 | Progress Note ---
<MAMADOU ATKINS - Last Filed: 02/04/19 10:09> Assessment and Plan s/p left BKA Permanent Atrial fib/flutter on metoprolol and amiodarone for rate control on eliquis for oral anticoagulation therapy. Ischemic cardiomyopathy with EF 30-35% CAD s/p 3v CABG in 2014 Cor [place] COPD Tobacco abuse Htn DM PAD Chronic non-compliance with medical therapy and medical follow up Recommend: Continue medical therapy for permanent atrial fibrillation, ischemic cardiomyopathy and coronary artery disease. Otherwise, conservative cardiac management. Subjective Date of service: 02/04/19 Principal diagnosis: Left BKA, debility Interval history: Undergoing physical therapy. Patient has no complaints. Blood pressure is currently 131/75. Objective Vital Signs Temp Pulse Pulse Resp Resp BP BP 02/04/19 09:19 02/04/19 09:04 91 H 131/75 02/04/19 08:16 98.3 F 91 H 20 131/75 02/04/19 08:00 101 H 17 02/04/19 05:10 98.2 F 20 103/61 02/04/19 05:09 89 02/04/19 05:08 98.2 F 104 H 20 87/23 02/04/19 04:09 18 02/03/19 22:12 98.8 F 74 18 90/45 02/03/19 21:37 20 02/03/19 21:36 20 113/64 02/03/19 21:24 02/03/19 21:22 90 20 02/03/19 20:31 78 02/03/19 20:28 66 02/03/19 15:26 20 02/03/19 15:20 98.8 F 94 H 20 104/48 02/03/19 15:10 95 H 18 02/03/19 10:37 20 Pulse Ox 02/04/19 09:19 100 02/04/19 09:04 02/04/19 08:16 99 02/04/19 08:00 02/04/19 05:10 02/04/19 05:09 97 02/04/19 05:08 98 02/04/19 04:09 02/03/19 22:12 99 02/03/19 21:37 02/03/19 21:36 02/03/19 21:24 100 02/03/19 21:22 02/03/19 20:31 100 02/03/19 20:28 98 02/03/19 15:26 02/03/19 15:20 97 02/03/19 15:10 02/03/19 10:37 - Physical Examination General: No Apparent Distress HEENT: Positive: PERRL Neck: Positive: trachea midline Cardiac: Positive: irregularly irregular Lungs: Positive: Decreased Breath Sounds Extremities: Present: Other (left BKA) - Labs and Meds CBC 02/03/19 02/04/19 Range/Units 12:08 07:04 WBC 13.6 H 10.7 (4.5-11.0) K/mm3 RBC 3.93 3.53 L (3.65-5.03) M/mm3 Hgb 9.4 L 8.8 L (10.1-14.3) gm/dl Hct 31.3 27.8 L (30.3-42.9) % Plt Count 142 120 L (140-440) K/mm3 Comprehensive Metabolic Panel 02/03/19 02/04/19 Range/Units 12:08 07:04 Sodium 140 143 (137-145) mmol/L Potassium 3.6 3.5 L (3.6-5.0) mmol/L Chloride 99.6 102.7 (98-107) mmol/L Carbon Dioxide 30 31 H (22-30) mmol/L BUN 24 H 21 H (7-17) mg/dL Creatinine 0.4 L 0.4 L (0.7-1.2) mg/dL Glucose 92 86 (65-100) mg/dL Calcium 7.7 L 7.4 L (8.4-10.2) mg/dL <JANAE FRASER - Last Filed: 02/04/19 13:05> Assessment and Plan I've seen and evaluated the patient and agrees with the assessment and plan. The patient is admitted with permanent atrial fibrillation, ischemic cardiomyopathy with ejection fraction 30-35%, and coronary artery disease status post three-vessel CABG in 2013. At this time recommend continued medical therapy for ischemic cardiomyopathy and coronary artery disease. Patient is in permanent atrial fibrillation which is rate controlled with metoprolol and amiodarone. Patient is on our request for anticoagulation. Recommend continuation of this medical therapy. Notably the patient has had some low blood pressures. These are relatively normal for her and she is currently asymptomatic. Would recommend adjustment of medications should the patient develop symptomatic hypotension. Objective Vital Signs Temp Pulse Pulse Resp Resp BP BP 02/04/19 09:35 98.3 F 94 H 20 131/75 02/04/19 09:19 02/04/19 09:04 91 H 131/75 02/04/19 08:16 98.3 F 91 H 20 131/75 02/04/19 08:00 101 H 17 02/04/19 05:10 98.2 F 20 103/61 02/04/19 05:09 89 02/04/19 05:08 98.2 F 104 H 20 87/23 02/04/19 04:09 18 02/03/19 22:12 98.8 F 74 18 90/45 02/03/19 21:37 20 02/03/19 21:36 20 113/64 02/03/19 21:24 02/03/19 21:22 90 20 02/03/19 20:31 78 02/03/19 20:28 66 02/03/19 15:26 20 02/03/19 15:20 98.8 F 94 H 20 104/48 02/03/19 15:10 95 H 18 Pulse Ox 02/04/19 09:35 98 02/04/19 09:19 100 02/04/19 09:04 02/04/19 08:16 99 02/04/19 08:00 02/04/19 05:10 02/04/19 05:09 97 02/04/19 05:08 98 02/04/19 04:09 02/03/19 22:12 99 02/03/19 21:37 02/03/19 21:36 02/03/19 21:24 100 02/03/19 21:22 02/03/19 20:31 100 02/03/19 20:28 98 02/03/19 15:26 02/03/19 15:20 97 02/03/19 15:10 - Labs and Meds CBC 02/04/19 Range/Units 07:04 WBC 10.7 (4.5-11.0) K/mm3 RBC 3.53 L (3.65-5.03) M/mm3 Hgb 8.8 L (10.1-14.3) gm/dl Hct 27.8 L (30.3-42.9) % Plt Count 120 L (140-440) K/mm3 Comprehensive Metabolic Panel 02/03/19 02/04/19 Range/Units 12:08 07:04 Sodium 140 143 (137-145) mmol/L Potassium 3.6 3.5 L (3.6-5.0) mmol/L Chloride 99.6 102.7 (98-107) mmol/L Carbon Dioxide 30 31 H (22-30) mmol/L BUN 24 H 21 H (7-17) mg/dL Creatinine 0.4 L 0.4 L (0.7-1.2) mg/dL Glucose 92 86 (65-100) mg/dL Calcium 7.7 L 7.4 L (8.4-10.2) mg/dL
[2019-02-04] MEDS: XANAX PO PRN ×2 (11:23→21:55)
--- NOTE | 2019-02-04 16:55 | Progress Note ---
Subjective Date of service: 02/04/19 Principal diagnosis: Left BKA, debility Interval history: 58-year-old female with recent history of a left BKA revision started to develop extreme pain in the legs and buttocks along with tachycardia. At the ER she was found to have atrial fibrillation with RVR. Her reports she was supposed to be on amiodarone was apparently noncompliant with this. She was started on amiodarone drip. She developed an acute mental status change but workup was negative for any acute changes. She is transferred to the ICU placed on BiPAP with some improvements noted. She developed MRSA bacteremia and was started on vancomycin. On 01/21 she was noted to have a right brachial DVT and was placed on a heparin drip. This was not seen in paperwork that we reviewed prior to admission and she was not transferred on any anticoagulation. There was mention under atrial fibrillation that she was not a good candidate for anticoagulation, however with both atrial fibrillation and a DVT she is at a higher risk for an embolic event. Discussed with the patient risks and benefits and have started her on Eliquis. She continued to have persistent respiratory issues with w heezing and shortness of breath. She was started on Entresto along with IV steroids and is now on oral steroid wean. Patient is participating in therapy and making slow progress. Taking rest breaks as needed. +BM. Denies palpitations, N/V, diarrhea. Still having cough with sputum at times but improving. STill on hypotensive side with some dizziness reported, but BP has improved somewhat. I question some of the readings. HR has been fairly elevated considering she is on amiodarone and metoprolol - remains in aFib. Decreased sleep and asked for home ambien. Due to s/e of ambien and current cardiac issues will utilize melatonin and monitor. Appreciate [place] [facility] assistance. Continue to monitor. All records, vitals, labs and medications were reviewed. No other issues per patient, nursing or therapy. Objective - Exam Narrative Exam: MUSCULOSKELETAL SPECIALTY EXAM CONSTITUTIONAL: Well developed, well nourished, appropriately groomed, obese EENT: EOMI. Hearing intact to soft voice RESPIRATORY: Rhonchi bilaterally, slightly better, no increased work of breathing, on nasal cannula CARDIOVASCULAR: IR/IR Rhythm, tachycardic at times, no tenderness in BUE or BLE. 3+ pitting edema in BLE. All extremities warm. No bleeding noted today GI: + bowel sounds, soft, NTTP, nondistended, protuberant INTEGUMENTARY: Widespread bruising, sores, and lesions, no rash or masses noted in extremities. MUSCULOSKELETAL: BUE and BLE normal without defect, crepitus, subluxation, effusion, arthritic changes or TTP except for Left BKA and right toe amputations as noted, and right anterior shoulder TTP BUE 4/5, good ROM, with normal tone. BLE 3/5 decreased ROM, with normal tone NEURO: CN 2-12 grossly intact. Sensation intact but altered in all extremities. No tremor noted in 4 extremities. POSTURE and GAIT: Sitting posture and fair. Balance appears poor. Gait/standing deferred until seen with therapy. PSYCH: Alert, oriented x3, affect appears anxious. Insight appears intact. - Constitutional Vitals: Vital Signs - 12hr 02/04/19 02/04/19 02/04/19 05:08 05:09 05:10 Temperature 36.8 C 36.8 C Pulse Rate 104 H 89 Pulse Rate [ Anterior] Respiratory 20 20 Rate Respiratory Rate [Anterior] Blood Pressure 87/23 103/61 Blood Pressure [Right] O2 Sat by Pulse 98 97 Oximetry 02/04/19 02/04/19 02/04/19 08:00 08:16 09:04 Temperature 36.8 C Pulse Rate 91 H 91 H Pulse Rate [ 101 H Anterior] Respiratory 20 Rate Respiratory 17 Rate [Anterior] Blood Pressure 131/75 131/75 Blood Pressure [Right] O2 Sat by Pulse 99 Oximetry 02/04/19 02/04/19 02/04/19 09:19 09:35 10:05 Temperature 36.8 C Pulse Rate 94 H Pulse Rate [ Anterior] Respiratory 20 20 Rate Respiratory Rate [Anterior] Blood Pressure Blood Pressure 131/75 [Right] O2 Sat by Pulse 100 98 Oximetry 02/04/19 02/04/19 02/04/19 12:25 12:26 13:57 Temperature 37.1 C 37.1 C Pulse Rate 97 H 100 H 98 H Pulse Rate [ Anterior] Respiratory 20 20 Rate Respiratory Rate [Anterior] Blood Pressure 105/52 Blood Pressure 130/70 [Right] O2 Sat by Pulse 98 98 98 Oximetry - Allied health notes Allied health notes reviewed: nursing, PT, OT FIMS assessment as documented by PT/OT/ST: Grooming Patient cleans teeth/dentures: Yes Patient epperson/brushes hair: Yes Patient washes, rinses and Yes dries face: Patient washes, rinses and Yes dries hands: Patient shaves: No Patient applies make-up: No Patient performs (no make-up/ 4/4 (100%) shaving): Grooming FIM Score 4. Minimal Assistance (Patient = 75% or more. Needs touching.) Social interaction/Memory/Problem solving Social Interaction FIM Score 6. Mod. [place] (Mostly appropriate. May need meds. No supv.) Memory FIM Score 7. Complete [place] (Remembers people and routines.) Problem Solving FIM Score 6. Mod. [place] (Mild difficulty or needs more time w/ complex.) Transfers Mode of Locomotion: Wheelchair Bed/Chair/Wheelchair Transfers 3. Moderate Assistance (Patient = 50% or more. FIM Score Some lifting.) Locomotion- Stairs Stairs FIM Score 0. Activity does not occur Locomotion- walk/wheelchair Most Frequent Mode of Wheelchair Locomotion: Ambulation Distance 0 Walking FIM Score 0. Activity does not occur Wheelchair Propulsion Distance 8 Wheelchair FIM Score 1. Total Assistance (Pt. < 25%, 2 or more person assist, or <50 ft.) Eating Eating FIM Score 5. Supervision/Set-Up (Needs help w/ containers, cutting meat, etc.) Dressing-Upper body Patient retrieves clothing No items: Patient applies/removes UE No prosthesis or orthosis: Upper Body Dressing FIM Score 4. Minimal Assistance (Patient = 75% or more. Needs touching.) Dressing-lower body Patient retrieves clothing No items: Patient applies/removes LE No prosthesis or orthosis: Lower Body Dressing FIM Score 1. Total Assistance (Patient less than 25%) - Labs CBC & Chem 7: 02/05/19 Unknown 02/05/19 Unknown Labs: Laboratory Results - last 72 hr 02/01/19 02/02/19 02/02/19 21:08 06:30 06:30 WBC 9.7 RBC 3.67 Hgb 8.9 L Hct 28.9 L MCV 79 MCH 24 L MCHC 31 RDW 21.9 H Plt Count 128 L Sodium 141 Potassium 3.6 Chloride 98.6 Carbon Dioxide 33 H Anion Gap 13 BUN 30 H Creatinine 0.5 L Estimated GFR > 60 BUN/Creatinine Ratio 60 Glucose 82 POC Glucose 292 H Calcium 7.7 L Vancomycin Trough 08/05/19 08/05/19 08/05/19 08:00 11:47 16:03 WBC RBC Hgb Hct MCV MCH MCHC RDW Plt Count Sodium Potassium Chloride Carbon Dioxide Anion Gap BUN Creatinine Estimated GFR BUN/Creatinine Ratio Glucose POC Glucose 84 84 207 H Calcium Vancomycin Trough 02/02/19 02/03/19 02/03/19 21:47 07:50 11:27 WBC RBC Hgb Hct MCV MCH MCHC RDW Plt Count Sodium Potassium Chloride Carbon Dioxide Anion Gap BUN Creatinine Estimated GFR BUN/Creatinine Ratio Glucose POC Glucose 190 H 151 H 112 H Calcium Vancomycin Trough 02/03/19 02/03/19 02/03/19 12:08 12:08 15:27 WBC 13.6 H RBC 3.93 Hgb 9.4 L Hct 31.3 MCV 80 MCH 24 L MCHC 30 RDW 22.6 H Plt Count 142 Sodium 140 Potassium 3.6 Chloride 99.6 Carbon Dioxide 30 Anion Gap 14 BUN 24 H Creatinine 0.4 L Estimated GFR > 60 BUN/Creatinine Ratio 60 Glucose 92 POC Glucose 100 Calcium 7.7 L Vancomycin Trough 02/03/19 02/04/19 02/04/19 22:32 04:23 07:04 WBC 10.7 RBC 3.53 L Hgb 8.8 L Hct 27.8 L MCV 79 MCH 25 L MCHC 32 RDW 22.6 H Plt Count 120 L Sodium Potassium Chloride Carbon Dioxide Anion Gap BUN Creatinine Estimated GFR BUN/Creatinine Ratio Glucose POC Glucose 194 H Calcium Vancomycin Trough 16.6 02/04/19 02/04/19 07:04 08:51 WBC RBC Hgb Hct MCV MCH MCHC RDW Plt Count Sodium 143 Potassium 3.5 L Chloride 102.7 Carbon Dioxide 31 H Anion Gap 13 BUN 21 H Creatinine 0.4 L Estimated GFR > 60 BUN/Creatinine Ratio 53 Glucose 86 POC Glucose 113 H Calcium 7.4 L Vancomycin Trough Assessment and Plan Left BKA: Continue supportive care. We'll continue to work with therapy on transfers in order to facilitate safe transition home. At this point based on the patient's comorbidities it does not appear that she will be a good candidate for a prosthesis. We will likely discharge home at wheelchair level. COPD: Continue respiratory support with prednisone and inhalers. DuoNeb. Respiratory therapy eval and nasal cannula for oxygen. CHF: Continue diuresis, monitor renal function, continue Entresto - consult Paul. Heart due to hypotension to see if there are alternatives Hypertension: Continue medications and adjust as needed, hypotensive currently. Have asked about placement and size of cuff - not sure I believe some of the values Diabetes, poorly controlled: Continue controlled carb diet, continue insulin monitor and adjust as needed Atrial fibrillation: Continue rate control. Eliquis started for anticoagulation Coronary artery disease: ASA and plavix d/c'd due to thrombocytopenia and minor bleeding. Monitor for any signs of bleeding. Monitor for any chest pain or cardiac symptoms. Peripheral vascular disease: Continue aspirin monitor for any signs of bleeding. Monitor H&H DVT R brachial vein: Discussed risk and benefits with patient, confirmed with Doppler, started Eliquis. Monitor for any signs of bleeding Morbid obesity: Discussed weight loss, lifestyle change, dietary modification Suspected pneumonia: Complete Levaquin, CXR today. Start mucomyst MRSA bacteremia: Complete vancomycin. Patient is on isolation. Last blood culture was negative Anxiety/depression: continue Xanax and Paxil Right shoulder pain: Chronic in nature. Speed's POS. Voltaren gel, modalities Z73.6 ADL dysfunction: OT will work on improving ability to perform ADLs (including assistive devices) to increase independence and decrease caregiver burden and improve functional transfers and mobility training. R26.2 Difficulty walking: PT will work on gait training and proper use of assistive devices and advance as appropriate to use of stairs and outside ambulation on uneven surfaces. R26.81 Unsteadiness on feet: PT will work on improving static and dynamic sitting and standing balance as well as proper use of assistive devices to decrease risk of falls. R26.89 Abnormality of gait: PT will work to improve safety and efficiency of gait through neuromotor training and gait training along with instruction on proper use of assistive devices. M62.81 Muscle weakness: PT & OT will work on strengthening exercises to improve functional strength including mixture of closed and open kinetic chain exercises. R53.81 Debility: PT & OT will work on improving overall functional status to improve participation with ADLs, mobility and social involvement. R53.83 Fatigue: PT & OT will work on improving endurance through aerobic exercises and therapeutic activity while monitoring patients tolerance for activity and vital signs as needed. DVT ppx: Started on Eliquis for RUE DVT Pain: Continue physical modalities in therapy and pain medications as needed to achieve functional pain control. Patient remains on Percocet for chronic pain Sleep: Monitor and address as needed. Melatonin Bowel: Monitor and address as needed. Appetite: Monitor and address as needed. Discharge planning: Pending therapy progress and care plan meeting. Will continue discussion with therapy team, SW, patient and family. Restrictions/ Precautions: Falls WB status: FWB Functional Hx: ADLs: Needed assistance Cognition: Ind Mobility: RW Barriers to Discharge: Decreased mobility and ability to perform self care, balance deficits, weakness Estimated Length of Stay: 1014 days Discharge Destination: Home with family
[2019-02-04] MEDS: K-DUR PO SCH (17:50)
[2019-02-04] MEDS: LANTUS SUB-Q SCH (21:54)
[2019-02-05] MEDS: NEURONTIN PO SCH ×4 (00:01→19:19)
[2019-02-05] MEDS: PERCOCET 5/325 PO PRN ×5 (00:01→23:53)
[2019-02-05] MEDS: VANCOMYCIN/NS 1 GM/250 ML 1 GM/250 ML BAG IV SCH ×2 (05:50→18:07)
[2019-02-05] MEDS: LASIX PO SCH ×2 (05:50→18:08)
[2019-02-05 07:42] LABS: Hematocrit 27.9 % (30.3-42.9); Hemoglobin 8.5 gm/dl (10.1-14.3); Mean Corpuscular HGB Conc 30 % (30-34); Mean Corpuscular Volume 79 fl (79-97); Platelet Count 126 K/mm3 (140-440); Red Blood Count 3.52 M/mm3 (3.65-5.03)
[2019-02-05 07:44] LABS: BUN/Creatinine Ratio 43; Blood Urea Nitrogen 17 mg/dL (7-17); Calcium 7.7 mg/dL (8.4-10.2); Hemolysis Index 7; Red Cell Distribution Width 22.9 % (13.2-15.2)
[2019-02-05] MEDS: DELTASONE PO SCH (08:54)
[2019-02-05] MEDS: MUCOMYST INHALATION INHALATION SCH ×2 (08:58→20:59)
[2019-02-05] MEDS: DUONEB *Not for PRN Use IH SCH ×3 (08:58→20:59)
[2019-02-05] MEDS: XANAX PO PRN ×2 (08:59→23:52)
[2019-02-05] MEDS: HumaLOG SUB-Q SCH ×4 (08:59→22:30)
[2019-02-05] MEDS: K-DUR PO SCH (09:02)
[2019-02-05] MEDS: CORDARONE PO SCH ×2 (09:02→21:23)
[2019-02-05] MEDS: THERAGRAN-M Tab PO SCH (09:02)
[2019-02-05] MEDS: VITAMIN C PO SCH ×2 (09:02→21:20)
[2019-02-05] MEDS: ELIQUIS PO SCH ×2 (09:02→21:20)
[2019-02-05] MEDS: TOPROL XL PO SCH (09:03)
[2019-02-05] MEDS: PAXIL PO SCH (09:04)
[2019-02-05] MEDS: SPIRIVA IH SCH (09:04)
[2019-02-05] MEDS: ENTRESTO 24 - 26 MG PO SCH (09:04)
[2019-02-05] MEDS: ZINC SULFATE PO SCH ×2 (09:05→23:52)
[2019-02-05] MEDS: DICLOFENAC 1% TP SCH ×3 (09:08→21:27)
--- NOTE | 2019-02-05 09:42 | Progress Note ---
Assessment and Plan s/p left BKA Permanent Atrial fib/flutter on metoprolol and amiodarone for rate control on eliquis for oral anticoagulation therapy. Ischemic cardiomyopathy with EF 30-35% CAD s/p 3v CABG in 2014 [facility] [place] COPD Tobacco abuse Htn DM PAD Chronic non-compliance with medical therapy and medical follow up Recommend: Continue medical therapy for permanent atrial fibrillation, ischemic cardiomyopathy and coronary artery disease. Otherwise, conservative cardiac management. Subjective Date of service: 02/05/19 Principal diagnosis: Left BKA, debility Interval history: Patient has no cardiac complaints. Afib with a well controlled ventricular rate on telemetry. Objective Vital Signs Temp Pulse Pulse Resp Resp BP BP 02/05/19 08:05 98.0 F 51 L 20 120/71 02/05/19 05:28 97.7 F 02/05/19 05:27 105 H 17 97/50 02/05/19 00:40 98.6 F 109 H 18 110/63 02/04/19 21:11 02/04/19 21:10 98 H 18 02/04/19 20:35 110 H 02/04/19 17:49 109 H 02/04/19 17:48 98.9 F 120 H 24 114/64 02/04/19 13:57 98.7 F 98 H 20 130/70 02/04/19 12:26 100 H 02/04/19 12:25 98.7 F 97 H 20 105/52 02/04/19 10:05 20 Pulse Ox 02/05/19 08:05 91 02/05/19 05:28 02/05/19 05:27 98 02/05/19 00:40 98 02/04/19 21:11 100 02/04/19 21:10 02/04/19 20:35 98 02/04/19 17:49 99 02/04/19 17:48 98 02/04/19 13:57 98 02/04/19 12:26 98 02/04/19 12:25 98 02/04/19 10:05 - Physical Examination General: No Apparent Distress HEENT: Positive: PERRL Neck: Positive: trachea midline Cardiac: Positive: irregularly irregular Lungs: Positive: Decreased Breath Sounds Neuro: Positive: Grossly Intact Extremities: Present: Other (left BKA) - Labs and Meds CBC 02/05/19 Range/Units Unknown WBC 10.5 (4.5-11.0) K/mm3 RBC 3.52 L (3.65-5.03) M/mm3 Hgb 8.5 L (10.1-14.3) gm/dl Hct 27.9 L (30.3-42.9) % Plt Count 126 L (140-440) K/mm3 Comprehensive Metabolic Panel 02/05/19 Range/Units Unknown Sodium 141 (137-145) mmol/L Potassium 3.6 (3.6-5.0) mmol/L Chloride 102.6 (98-107) mmol/L Carbon Dioxide 26 (22-30) mmol/L BUN 17 (7-17) mg/dL Creatinine 0.4 L (0.7-1.2) mg/dL Glucose 56 L (65-100) mg/dL Calcium 7.7 L (8.4-10.2) mg/dL
[2019-02-05] MEDS ORDERED: ELIQUIS PO SCH (10:00)
--- NOTE | 2019-02-05 16:40 | Progress Note ---
Subjective Date of service: 02/05/19 Principal diagnosis: Left BKA, debility Interval history: 58-year-old female with recent history of a left BKA revision started to develop extreme pain in the legs and buttocks along with tachycardia. At the ER she was found to have atrial fibrillation with RVR. Her reports she was supposed to be on amiodarone was apparently noncompliant with this. She was started on amiodarone drip. She developed an acute mental status change but workup was negative for any acute changes. She is transferred to the ICU placed on BiPAP with some improvements noted. She developed MRSA bacteremia and was started on vancomycin. On 01/21 she was noted to have a right brachial DVT and was placed on a heparin drip. This was not seen in paperwork that we reviewed prior to admission and she was not transferred on any anticoagulation. There was mention under atrial fibrillation that she was not a good candidate for anticoagulation, however with both atrial fibrillation and a DVT she is at a higher risk for an embolic event. Discussed with the patient risks and benefits and have started her on Eliquis. She continued to have persistent respiratory issues with w heezing and shortness of breath. She was started on Entresto along with IV steroids and is now on oral steroid wean. Patient is participating in therapy and making slow progress. Taking rest breaks as needed. Discussed with Infection director pharmacology - will remove from isolation. +BM. Denies palpitations, N/V, diarrhea. Still having cough with sputum at times but improving. STill on hypotensive side with some dizziness reported, but BP has improved somewhat. I question some of the BP readings. HR has been fairly elevated considering she is on amiodarone and metoprolol - remains in aFib, on telemonitoring. Will obtain CXR tomorrow for follow up to PNA treatment and CHF. Continue to monitor. Discussed in Team Conference. Good participation, decreased endurance. Poor standing balance. Very anxious with some activities. WIll attempt lymph edema wrapping to help displace LE fluid. Have discussed with patient and family that she has an overall poor prognosis. We should be able to improve her mobility and transfers. Will be w/c level at home. Not a good candidate for LE p rosthesis ambulation due to cardiac condition. May be able to obtain K1 leg for transfers depending on progress. All records, vitals, labs and medications were reviewed. No other issues per patient, nursing or therapy. Objective - Exam Narrative Exam: MUSCULOSKELETAL SPECIALTY EXAM CONSTITUTIONAL: Well developed, well nourished, appropriately groomed, obese EENT: EOMI. Hearing intact to soft voice RESPIRATORY: Rhonchi bilaterally, slightly better, no increased work of breathing, on nasal cannula CARDIOVASCULAR: Regular Rhythm, tachycardic, no tenderness in BUE or BLE. 3+ pitting edema in BLE, no weeping today. All extremities warm. No bleeding noted today GI: + bowel sounds, soft, NTTP, nondistended, protuberant INTEGUMENTARY: Widespread bruising, sores, and lesions, no rash or masses noted in extremities. MUSCULOSKELETAL: BUE and BLE normal without defect, crepitus, subluxation, effusion, arthritic changes or TTP except for Left BKA and right toe amputations as noted, and right anterior shoulder TTP BUE 4/5, good ROM, with normal tone. BLE 3/5 decreased ROM, with normal tone NEURO: CN 2-12 grossly intact. Sensation intact but altered in all extremities. No tremor noted in 4 extremities. POSTURE and GAIT: Sitting posture and fair. Balance appears poor. Standing balance is poor. PSYCH: Alert, oriented x3, affect appears anxious. Insight appears intact. - Constitutional Vitals: Vital Signs - 12hr 02/05/19 02/05/19 02/05/19 05:27 05:28 08:05 Temperature 36.5 C 36.7 C Pulse Rate 105 H 51 L Pulse Rate [ Anterior] Respiratory 17 20 Rate Respiratory Rate [Anterior] Blood Pressure 97/50 120/71 Blood Pressure [Right] O2 Sat by Pulse 98 91 Oximetry 02/05/19 02/05/19 02/05/19 08:58 09:00 11:43 Temperature 36.7 C Pulse Rate 108 H 117 H Pulse Rate [ 108 H Anterior] Respiratory 18 Rate Respiratory 20 Rate [Anterior] Blood Pressure 88/49 Blood Pressure 131/74 [Right] O2 Sat by Pulse 98 95 Oximetry 02/05/19 02/05/19 14:55 15:13 Temperature 36.8 C Pulse Rate 120 H Pulse Rate [ 120 H Anterior] Respiratory 20 Rate Respiratory 20 Rate [Anterior] Blood Pressure Blood Pressure 118/67 [Right] O2 Sat by Pulse 95 Oximetry - Allied health notes Allied health notes reviewed: nursing, PT, OT FIMS assessment as documented by PT/OT/ST: Grooming Patient cleans teeth/dentures: Yes Patient epperson/brushes hair: Yes Patient washes, rinses and Yes dries face: Patient washes, rinses and Yes dries hands: Patient shaves: No Patient applies make-up: No Patient performs (no make-up/ 10/02 (100%) shaving): Grooming FIM Score 4. Minimal Assistance (Patient = 75% or more. Needs touching.) Social interaction/Memory/Problem solving Social Interaction FIM Score 6. Mod. [place] (Mostly appropriate. May need meds. No supv.) Memory FIM Score 7. Complete [place] (Remembers people and routines.) Problem Solving FIM Score 6. Mod. [place] (Mild difficulty or needs more time w/ complex.) Transfers Mode of Locomotion: Wheelchair Bed/Chair/Wheelchair Transfers 3. Moderate Assistance (Patient = 50% or more. FIM Score Some lifting.) Locomotion- Stairs Stairs FIM Score 0. Activity does not occur Locomotion- walk/wheelchair Most Frequent Mode of Wheelchair Locomotion: Ambulation Distance 0 Walking FIM Score 0. Activity does not occur Wheelchair Propulsion Distance 8 Wheelchair FIM Score 1. Total Assistance (Pt. < 25%, 2 or more person assist, or <50 ft.) Eating Eating FIM Score 5. Supervision/Set-Up (Needs help w/ containers, cutting meat, etc.) Dressing-Upper body Patient retrieves clothing No items: Patient applies/removes UE No prosthesis or orthosis: Upper Body Dressing FIM Score 4. Minimal Assistance (Patient = 75% or more. Needs touching.) Dressing-lower body Patient retrieves clothing No items: Patient applies/removes LE No prosthesis or orthosis: Lower Body Dressing FIM Score 1. Total Assistance (Patient less than 25%) - Labs CBC & Chem 7: 02/06/19 06:10 02/06/19 06:10 Labs: Laboratory Results - last 72 hr 02/02/19 02/03/19 02/03/19 21:47 07:50 11:27 WBC RBC Hgb Hct MCV MCH MCHC RDW Plt Count Sodium Potassium Chloride Carbon Dioxide Anion Gap BUN Creatinine Estimated GFR BUN/Creatinine Ratio Glucose POC Glucose 190 H 151 H 112 H Calcium Vancomycin Trough 02/03/19 02/03/19 02/03/19 12:08 12:08 15:27 WBC 13.6 H RBC 3.93 Hgb 9.4 L Hct 31.3 MCV 80 MCH 24 L MCHC 30 RDW 22.6 H Plt Count 142 Sodium 140 Potassium 3.6 Chloride 99.6 Carbon Dioxide 30 Anion Gap 14 BUN 24 H Creatinine 0.4 L Estimated GFR > 60 BUN/Creatinine Ratio 60 Glucose 92 POC Glucose 100 Calcium 7.7 L Vancomycin Trough 02/03/19 02/04/19 02/04/19 22:32 04:23 07:04 WBC 10.7 RBC 3.53 L Hgb 8.8 L Hct 27.8 L MCV 79 MCH 25 L MCHC 32 RDW 22.6 H Plt Count 120 L Sodium Potassium Chloride Carbon Dioxide Anion Gap BUN Creatinine Estimated GFR BUN/Creatinine Ratio Glucose POC Glucose 194 H Calcium Vancomycin Trough 16.6 02/04/19 02/04/19 02/04/19 07:04 08:51 14:51 WBC RBC Hgb Hct MCV MCH MCHC RDW Plt Count Sodium 143 Potassium 3.5 L Chloride 102.7 Carbon Dioxide 31 H Anion Gap 13 BUN 21 H Creatinine 0.4 L Estimated GFR > 60 BUN/Creatinine Ratio 53 Glucose 86 POC Glucose 113 H 218 H Calcium 7.4 L Vancomycin Trough 02/04/19 02/04/19 02/05/19 16:49 21:52 08:13 WBC RBC Hgb Hct MCV MCH MCHC RDW Plt Count Sodium Potassium Chloride Carbon Dioxide Anion Gap BUN Creatinine Estimated GFR BUN/Creatinine Ratio Glucose POC Glucose 222 H 176 H 62 L Calcium Vancomycin Trough 02/05/19 02/05/19 02/05/19 11:50 Unknown Unknown WBC 10.5 RBC 3.52 L Hgb 8.5 L Hct 27.9 L MCV 79 MCH 24 L MCHC 30 RDW 22.9 H Plt Count 126 L Sodium 141 Potassium 3.6 Chloride 102.6 Carbon Dioxide 26 Anion Gap 16 BUN 17 Creatinine 0.4 L Estimated GFR > 60 BUN/Creatinine Ratio 43 Glucose 56 L POC Glucose 70 Calcium 7.7 L Vancomycin Trough Assessment and Plan Left BKA: Continue supportive care. We'll continue to work with therapy on transfers in order to facilitate safe transition home. At this point based on the patient's comorbidities it does not appear that she will be a good candidate for a prosthesis. We will likely discharge home at wheelchair level. COPD: Continue respiratory support with prednisone and inhalers. DuoNeb. Respiratory therapy eval and nasal cannula for oxygen. CHF: Continue diuresis, monitor renal function, continue Entresto - consult Paul. Heart due to hypotension to see if there are alternatives Hypertension: Continue medications and adjust as needed, hypotensive currently. Have asked about placement and size of cuff - not sure I believe some of the values Diabetes, poorly controlled: Continue controlled carb diet, continue insulin monitor and adjust as needed Atrial fibrillation: Continue rate control. Eliquis started for anticoagulation. On tele. Cardiology consult Coronary artery disease: ASA and plavix d/c'd due to thrombocytopenia and minor bleeding. Monitor for any signs of bleeding. Monitor for any chest pain or cardiac symptoms. Peripheral vascular disease: Continue aspirin monitor for any signs of bleeding. Monitor H&H DVT R brachial vein: Discussed risk and benefits with patient, confirmed with Selina resendez, started Eliquis. Monitor for any signs of bleeding. Hgb stable Morbid obesity: Discussed weight loss, lifestyle change, dietary modification Suspected pneumonia: Completed Levaquin, CXR Saturday. Short course mucomyst MRSA bacteremia: Complete vancomycin. D/C isolation. Last blood culture was negative Anxiety/depression: continue Xanax and Paxil Right shoulder pain: Chronic in nature. Speed's POS. Voltaren gel, modalities Z73.6 ADL dysfunction: OT will work on improving ability to perform ADLs (including assistive devices) to increase independence and decrease caregiver burden and improve functional transfers and mobility training. R26.2 Difficulty walking: PT will work on gait training and proper use of assistive devices and advance as appropriate to use of stairs and outside ambulation on uneven surfaces. R26.81 Unsteadiness on feet: PT will work on improving static and dynamic sitting and standing balance as well as proper use of assistive devices to decrease risk of falls. R26.89 Abnormality of gait: PT will work to improve safety and efficiency of gait through neuromotor training and gait training along with instruction on proper use of assistive devices. M62.81 Muscle weakness: PT & OT will work on strengthening exercises to improve functional strength including mixture of closed and open kinetic chain exercises. R53.81 Debility: PT & OT will work on improving overall functional status to improve participation with ADLs, mobility and social involvement. R53.83 Fatigue: PT & OT will work on improving endurance through aerobic exercises and therapeutic activity while monitoring patients tolerance for activity and vital signs as needed. DVT ppx: Started on Eliquis for RUE DVT Pain: Continue physical modalities in therapy and pain medications as needed to achieve functional pain control. Patient remains on Percocet for chronic pain Sleep: Monitor and address as needed. Melatonin Bowel: Monitor and address as needed. Appetite: Monitor and address as needed. Discharge planning: Pending therapy progress and care plan meeting. Will continue discussion with therapy team, SW, patient and family. Plan for 02/19 d/c Restrictions/ Precautions: Falls, tele-monitoring WB status: FWB Functional Hx: ADLs: Needed assistance Cognition: Ind Mobility: RW Barriers to Discharge: Decreased mobility and ability to perform self care, balance deficits, weakness Estimated Length of Stay: 1014 days Discharge Destination: Home with family
--- NOTE | 2019-02-05 18:42 | Consultation ---
History of Present Illness - Reason for Consult Consult date: 02/03/19 co management - History of Present Illness Thank you for allowing me to participate in the management of this patient. As you know, via, our conversation, this is a private patient of mine, who is here for rehab purposes. She has multiple medical problems, including cardiac, CHF, CAD/CABGE, DM-2, copd, htn, anal rectal warts, anemia, thrombocytopenia, and PVD with amputation, and DVT .she was on multiple anti coagulations, had a recent fall. Due to her cytopenias, adjustments were made to her anticoagulation, as per our conversation few days ago.Labs reviewed, pls see some additional input as part of w/up.I see that the cardiology is now on board as we discussed. Part of the reason ,for her cytopenias, may be the IV Vancomycin.If she needs any replacement transfusion intervention, we will do so. Past History Past Medical History: atrial fib, CAD, COPD (home oxygen), diabetes, DVT, heart failure, hypertension, hyperlipidemia, PVD, stroke, other (Depression/anxiety, anemia) Past Surgical History: CABG, Other (Left BKA, right toe amputations, ) Social history: lives with family, smoking, full code. denies: alcohol abuse, prescription drug abuse, IV drug use Family history: CAD, cancer Medications and Allergies Allergies Allergy/AdvReac Type Severity Reaction Status Date / Time Penicillins Allergy Itching Verified 04/03/18 12:43 Home Medications Medication Instructions Recorded Confirmed Last Taken Type Aspirin [Aspirin BABY CHEW TAB] 81 mg PO DAILY #100 tab.chew 09/07/18 01/29/19 Unknown Rx AtorvaSTATin [Lipitor] 40 mg PO QHS #30 tablet 09/07/18 01/29/19 Unknown Rx Gabapentin [Neurontin] 300 mg PO TID #90 capsule 09/07/18 01/29/19 Unknown Rx Insulin Glargine [Lantus VIAL] 20 units SUB-Q QHS #1 vial 09/07/18 01/29/19 Unknown Rx Ipratropium/Albuterol Sulfate 1 ampul IH QIDRT #120 ampul.neb 09/07/18 01/29/19 Unknown Rx [DUONEB *Not for PRN Use*] Furosemide [Lasix TAB] 40 mg PO BID #60 tablet 10/08/18 01/29/19 Unknown Rx LORazepam [Ativan] 1 mg PO Q4H PRN #14 tablet 10/08/18 01/29/19 Unknown Rx Lisinopril [Prinivil] 2.5 mg PO QDAY 10/16/18 01/29/19 Unknown History ALBUTEROL NEB's [Proventil 0.083% 2.5 mg IH Q4HRT PRN nebu 10/31/18 01/29/19 Unknown Rx NEBS] Arformoterol Nebu [Brovana Nebu] 15 mcg IH Q12HRT ml 10/31/18 01/29/19 Unknown Rx Aspirin [Aspirin BABY CHEW TAB] 81 mg PO DAILY tab.chew 10/31/18 01/29/19 Unknown Rx AtorvaSTATin [Lipitor] 40 mg PO QHS tablet 10/31/18 01/29/19 Unknown Rx Budesonide [Pulmicort Respules] 0.5 mg IH Q12HRT nebu 10/31/18 01/29/19 Unknown Rx Digoxin [Lanoxin] 0.25 mg PO DAILY@1700 tablet 10/31/18 01/29/19 Unknown Rx Gabapentin [Neurontin] 300 mg PO TID capsule 10/31/18 01/29/19 Unknown Rx HYDROcodone/APAP 5-325 [[place] 1 each PO Q6H PRN #20 tablet 10/31/18 01/29/19 Unknown Rx 5-325 mg TAB] Insulin Glargine [Lantus VIAL] 20 units SUB-Q QHS units 10/31/18 01/29/19 Unknown Rx LORazepam [Ativan] 1 mg PO Q4H PRN tablet 10/31/18 01/29/19 Unknown Rx Lisinopril [Zestril TAB] 2.5 mg PO QDAY tablet 10/31/18 01/29/19 Unknown Rx Metoprolol [Lopressor TAB] 50 mg PO Q8HR tablet 10/31/18 01/29/19 Unknown Rx Zolpidem [Ambien] 5 mg PO QHS PRN tablet 10/31/18 01/29/19 Unknown Rx predniSONE [Deltasone] 20 mg PO QDAY tablet 10/31/18 01/29/19 Unknown Rx oxyCODONE /ACETAMINOPHEN [Percocet 1 tab PO Q6HR PRN #15 tablet 11/05/18 01/29/19 Unknown Rx 5/325] Active Meds: Active Medications Acetylcysteine (Mucomyst Inhalation) 200 mg INHALATION Q12HRT [facility] Stop: 02/06/19 11:44 Last Admin: 02/05/19 08:58 Dose: 200 mg Documented by: Albuterol/Ipratropium (Duoneb *Not For Prn Use*) 1 ampul IH TIDRT [facility] Last Admin: 02/05/19 14:55 Dose: 1 ampul Documented by: Alprazolam (Xanax) 0.5 mg PO BID PRN PRN Reason: Anxiety Last Admin: 02/05/19 08:59 Dose: 0.5 mg Documented by: Amiodarone HCl (Cordarone) 200 mg PO BID [facility] Last Admin: 02/05/19 09:02 Dose: 200 mg Documented by: Apixaban (Eliquis) 5 mg PO Q12HR [facility]; Protocol Last Admin: 02/05/19 09:02 Dose: 5 mg Documented by: Ascorbic Acid (Vitamin C) 500 mg PO BID [facility] Last Admin: 02/05/19 09:02 Dose: 500 mg Documented by: Atorvastatin Calcium (Lipitor) 40 mg PO QHS [facility] Last Admin: 02/04/19 21:54 Dose: 40 mg Documented by: Bisacodyl (Dulcolax) 10 mg HI QDAY PRN PRN Reason: Constipation Dextrose (D50w (25gm) Syringe) 50 ml IV PRN PRN PRN Reason: Hypoglycemia Diclofenac Sodium (Diclofenac 1%) 1 applic TP TID [facility] Last Admin: 02/04/19 22:00 Dose: 1 applic Documented by: Ergocalciferol (Vitamin D2) 50,000 unit PO We [facility] Last Admin: 02/04/19 09:05 Dose: 50,000 unit Documented by: Furosemide (Lasix) 40 mg PO 0600,1800 [facility] Last Admin: 02/05/19 05:50 Dose: 40 mg Documented by: Gabapentin (Neurontin) 300 mg PO Q6HR [facility] Last Admin: 02/05/19 12:19 Dose: Not Given Documented by: Hydralazine HCl (Apresoline) 10 mg PO Q6H PRN PRN Reason: Hypertension Vancomycin HCl (Vancomycin/Ns 1 Gm/250 Ml) 1 gm in 250 mls @ 166.667 mls/hr IV Q12HR@0600,1800 [facility] Stop: 02/07/19 20:59 Last Admin: 02/05/19 05:50 Dose: 166.667 mls/hr Documented by: Insulin Glargine (Lantus) 20 units SUB-Q QHS [facility] Last Admin: 02/04/19 21:54 Dose: 20 units Documented by: Insulin Human Lispro (Humalog) 0 unit SUB-Q ACHS [facility]; Protocol Last Admin: 02/05/19 12:32 Dose: Not Given Documented by: Metoprolol Succinate (Toprol Xl) 100 mg PO QDAY [facility] Last Admin: 02/05/19 09:03 Dose: 100 mg Documented by: Multivitamins/Minerals (Theragran-M Tab) 1 each PO QDAY [facility] Last Admin: 02/05/19 09:02 Dose: 1 each Documented by: Ondansetron HCl (Zofran Odt) 4 mg PO Q8H PRN PRN Reason: Nausea And Vomiting Last Admin: 01/31/19 02:32 Dose: 4 mg Documented by: Oxycodone/Acetaminophen (Percocet 5/325) 1 tab PO Q4H PRN PRN Reason: Pain, Moderate (4-6) Last Admin: 02/05/19 15:16 Dose: 1 tab Documented by: Paroxetine HCl (Paxil) 10 mg PO QDAY [facility] Last Admin: 02/05/19 09:04 Dose: 10 mg Documented by: Polyethylene Glycol (Miralax 3350) 17 gm PO QDAY PRN PRN Reason: Constipation Potassium Chloride (K-Dur) 20 meq PO QDAY [facility] Stop: 02/07/19 17:59 Last Admin: 02/05/19 09:02 Dose: 20 meq Documented by: Prednisone (Deltasone) 20 mg PO QDAY [facility] Stop: 02/06/19 07:59 Last Admin: 02/05/19 08:54 Dose: 20 mg Documented by: Prednisone (Deltasone) 10 mg PO QDAY [facility] Stop: 02/11/19 07:59 Tiotropium [place] (Spiriva) 1 puff IH Q24HRT [facility] Last Admin: 02/05/19 09:04 Dose: Not Given Documented by: Zinc Sulfate (Zinc Sulfate) 220 mg PO BID [facility] Last Admin: 02/05/19 09:05 Dose: 220 mg Documented by: Review of Systems Constitutional: weight gain, chronic pain Breasts: deferred Endocrine: high blood sugars Exam - Constitutional Vitals: Temp Pulse Resp BP Pulse Ox 98.2 F 120 H 20 118/67 95 02/05/19 15:13 02/05/19 15:13 02/05/19 15:13 02/05/19 15:13 02/05/19 15:13 General appearance: Present: no acute distress, well-nourished - EENT Eyes: Present: PERRL ENT: hearing intact, clear oral mucosa - Neck Neck: Present: supple, normal ROM - Respiratory Respiratory effort: normal Respiratory: bilateral: CTA - Cardiovascular Heart Sounds: Present: S1 & S2. Absent: rub, click - Extremities Extremities: pulses symmetrical, No edema Peripheral Pulses: within normal limits - Abdominal General gastrointestinal: Present: soft, non-tender, non-distended, normal bowel sounds Female genitourinary: Present: normal - Rectal Rectal Exam: deferred - Integumentary Integumentary: Present: clear, warm, dry - Musculoskeletal Musculoskeletal: gait normal, strength equal bilaterally - Psychiatric Psychiatric: appropriate mood/affect, intact judgment & insight - Neurologic Neurologic: CNII-XII intact, moves all extremities Results - Labs CBC & Chem 7: 02/05/19 Unknown 02/05/19 Unknown Labs: Abnormal lab results 02/04/19 02/05/19 02/05/19 Range/Units 21:52 08:13 17:07 RBC (3.65-5.03) M/mm3 Hgb (10.1-14.3) gm/dl Hct (30.3-42.9) % MCH (28-32) pg RDW (13.2-15.2) % Plt Count (140-440) K/mm3 Creatinine (0.7-1.2) mg/dL Glucose (65-100) mg/dL POC Glucose 176 H 62 L 259 H (70-105) Calcium (8.4-10.2) mg/dL 02/05/19 02/05/19 Range/Units Unknown Unknown RBC 3.52 L (3.65-5.03) M/mm3 Hgb 8.5 L (10.1-14.3) gm/dl Hct 27.9 L (30.3-42.9) % MCH 24 L (28-32) pg RDW 22.9 H (13.2-15.2) % Plt Count 126 L (140-440) K/mm3 Creatinine 0.4 L (0.7-1.2) mg/dL Glucose 56 L (65-100) mg/dL POC Glucose (70-105) Calcium 7.7 L (8.4-10.2) mg/dL Assessment and Plan - Patient Problems (1) Abdominal pain Current Visit: No Status: Acute Qualifiers: Abdominal location: generalized Qualified Code(s): R10.84 - Generalized abdominal pain Plan to address problem: pain control. (2) Anal wart Current Visit: No Status: Acute Plan to address problem: local tx, or ID eval. (3) Atrial flutter Current Visit: No Status: Acute Plan to address problem: follow cardiology. (4) Congestive cardiomyopathy Current Visit: No Status: Acute Plan to address problem: follow cardiology. (5) DVT prophylaxis Current Visit: No Status: Acute Plan to address problem: continue as current. (6) Anemia Current Visit: Yes Status: Acute Plan to address problem: See notes section. (7) Thrombocytopenia Current Visit: Yes Status: Acute Plan to address problem: see notes section.
[2019-02-05] MEDS: LANTUS SUB-Q SCH (21:51)
[2019-02-06] MEDS: ENTRESTO 24 - 26 MG PO SCH ×3 (00:32→21:33)
[2019-02-06] MEDS: HumaLOG SUB-Q SCH ×5 (00:51→21:37)
[2019-02-06] MEDS: PERCOCET 5/325 PO PRN ×6 (04:29→21:34)
[2019-02-06] MEDS: NEURONTIN PO SCH ×5 (05:49→23:17)
[2019-02-06] MEDS: VANCOMYCIN/NS 1 GM/250 ML 1 GM/250 ML BAG IV SCH ×2 (05:49→17:14)
[2019-02-06] MEDS: LASIX PO SCH ×2 (06:41→17:07)
[2019-02-06 06:44] LABS: BUN/Creatinine Ratio 45; Blood Urea Nitrogen 18 mg/dL (7-17); Calcium 7.6 mg/dL (8.4-10.2); Hemolysis Index 0
[2019-02-06 06:49] LABS: Hematocrit 31.3 % (30.3-42.9); Hemoglobin 9.8 gm/dl (10.1-14.3); Mean Corpuscular HGB Conc 31 % (30-34); Mean Corpuscular Volume 79 fl (79-97); Platelet Count 122 K/mm3 (140-440); Red Blood Count 3.97 M/mm3 (3.65-5.03); Red Cell Distribution Width 23.3 % (13.2-15.2)
[2019-02-06] MEDS: MUCOMYST INHALATION INHALATION SCH (07:42)
[2019-02-06] MEDS: SPIRIVA IH SCH (07:42)
[2019-02-06] MEDS: DUONEB *Not for PRN Use IH SCH ×3 (07:42→19:28)
[2019-02-06] MEDS: DELTASONE PO SCH (08:36)
[2019-02-06] MEDS: PAXIL PO SCH (08:37)
[2019-02-06] MEDS: VITAMIN C PO SCH ×2 (08:37→21:38)
[2019-02-06] MEDS: K-DUR PO SCH (08:38)
[2019-02-06] MEDS: TOPROL XL PO SCH (08:38)
[2019-02-06] MEDS: CORDARONE PO SCH ×2 (08:39→21:34)
[2019-02-06] MEDS: ZINC SULFATE PO SCH ×2 (08:39→21:34)
[2019-02-06] MEDS: THERAGRAN-M Tab PO SCH (08:39)
[2019-02-06] MEDS: DICLOFENAC 1% TP SCH ×3 (09:04→20:45)
[2019-02-06] MEDS: XANAX PO PRN ×3 (09:05→17:08)
--- NOTE | 2019-02-06 09:41 | Progress Note ---
Assessment and Plan s/p left BKA Thrombocytopenia Permanent Atrial fib/flutter on metoprolol and amiodarone for rate control on eliquis for oral anticoagulation therapy. Ischemic cardiomyopathy with EF 30-35% CAD s/p 3v CABG in 2014 Cor [place] COPD Tobacco abuse Htn DM PAD Chronic non-compliance with medical therapy and medical follow up Recommend: Continue medical therapy for permanent atrial fibrillation, ischemic cardiomyopathy and coronary artery disease. Otherwise, conservative cardiac management. Subjective Date of service: 02/06/19 Principal diagnosis: Left BKA, debility Interval history: Patient has no cardiac complaints. Receiving physical therapy. Objective Vital Signs Temp Pulse Pulse Resp Resp BP BP 02/06/19 08:38 128 H 105/59 02/06/19 07:42 113 H 20 02/06/19 07:41 02/06/19 05:02 98.5 F 118 H 24 92/65 02/06/19 01:47 115 H 115/67 02/06/19 00:53 17 02/05/19 23:53 16 02/05/19 21:00 111 H 19 20 02/05/19 20:02 97.9 F 118 H 20 104/71 02/05/19 15:13 98.2 F 120 H 20 118/67 02/05/19 14:55 120 H 20 02/05/19 11:43 98.1 F 117 H 18 88/49 Pulse Ox 02/06/19 08:38 02/06/19 07:42 02/06/19 07:41 100 02/06/19 05:02 98 02/06/19 01:47 02/06/19 00:53 02/05/19 23:53 02/05/19 21:00 96 02/05/19 20:02 98 02/05/19 15:13 95 02/05/19 14:55 02/05/19 11:43 95 - Physical Examination General: No Apparent Distress HEENT: Positive: PERRL Neck: Positive: trachea midline Cardiac: Positive: irregularly irregular Lungs: Positive: Decreased Breath Sounds, Wheezes Neuro: Positive: Grossly Intact Extremities: Present: Other (left BKA) - Labs and Meds Cardiac Enzymes 02/06/19 Range/Units 06:10 Lactate Dehydrogenase 217 H (91-180) units/L CBC 02/06/19 Range/Units 06:10 WBC 8.5 (4.5-11.0) K/mm3 RBC 3.97 (3.65-5.03) M/mm3 Hgb 9.8 L (10.1-14.3) gm/dl Hct 31.3 (30.3-42.9) % Plt Count 122 L (140-440) K/mm3 Comprehensive Metabolic Panel 02/06/19 Range/Units 06:10 Sodium 140 (137-145) mmol/L Potassium 4.0 (3.6-5.0) mmol/L Chloride 100.5 (98-107) mmol/L Carbon Dioxide 31 H (22-30) mmol/L BUN 18 H (7-17) mg/dL Creatinine 0.4 L (0.7-1.2) mg/dL Glucose 127 H (65-100) mg/dL Calcium 7.6 L (8.4-10.2) mg/dL
[2019-02-06] MEDS: ELIQUIS PO SCH ×2 (13:19→21:34)
--- NOTE | 2019-02-06 19:48 | Progress Note ---
Assessment and Plan - Patient Problems (1) Abdominal pain Current Visit: No Status: Acute Qualifiers: Abdominal location: generalized Qualified Code(s): R10.84 - Generalized abdominal pain Plan to address problem: pain control. (2) Anal wart Current Visit: No Status: Acute Plan to address problem: local tx, or ID eval. (3) Atrial flutter Current Visit: No Status: Acute Plan to address problem: follow cardiology. (4) Congestive cardiomyopathy Current Visit: No Status: Acute Plan to address problem: follow cardiology. (5) DVT prophylaxis Current Visit: No Status: Acute Plan to address problem: continue as current. (6) Anemia Current Visit: Yes Status: Acute Plan to address problem: See notes section. (7) Thrombocytopenia Current Visit: Yes Status: Acute Plan to address problem: see notes section. Subjective Date of service: 02/06/19 Principal diagnosis: Left BKA, debility Interval history: patient seen/examined, resting in bed, NAD, labs reviewed.PLT dropped by additional 2K., still no bleeding. Objective - Constitutional Vitals: Vital Signs - 12hr 02/06/19 02/06/19 08:38 09:00 Pulse Rate 128 H Pulse Rate [ 128 H Apical] Pulse Rate [ 128 H Left Radial] Pulse Rate [ 128 H Right Radial] Respiratory 22 Rate Blood Pressure 105/59 O2 Sat by Pulse 98 Oximetry General appearance: Present: mild distress, well-nourished - EENT Eyes: PERRL, EOM intact ENT: hearing intact, clear oral mucosa Ears: bilateral: normal - Neck Neck: supple, normal ROM - Respiratory Respiratory effort: normal Respiratory: bilateral: CTA - Breasts Breasts: deferred - Cardiovascular Rhythm: regular Heart Sounds: Present: S1 & S2. Absent: gallop, rub Extremities: pulses intact, No edema, normal color, Full ROM - Gastrointestinal General gastrointestinal: Present: soft, non-tender, non-distended, normal bowel sounds Rectal Exam: deferred - Genitourinary Female genitourinary: deferred - Integumentary Integumentary: clear, warm, dry - Musculoskeletal Musculoskeletal: 1, strength equal bilaterally - Neurologic Neurologic: moves all extremities - Psychiatric Psychiatric: memory intact, appropriate mood/affect, intact judgment & insight - Labs CBC & Chem 7: 02/06/19 06:10 02/06/19 06:10 Labs: Abnormal lab results 02/05/19 02/06/19 02/06/19 Range/Units 21:33 06:10 06:10 Hgb 9.8 L (10.1-14.3) gm/dl MCH 25 L (28-32) pg RDW 23.3 H (13.2-15.2) % Plt Count 122 L (140-440) K/mm3 Carbon Dioxide 31 H (22-30) mmol/L BUN 18 H (7-17) mg/dL Creatinine 0.4 L (0.7-1.2) mg/dL Glucose 127 H (65-100) mg/dL POC Glucose 323 H (70-105) Calcium 7.6 L (8.4-10.2) mg/dL Lactate Dehydrogenase (91-180) units/L 02/06/19 02/06/19 02/06/19 Range/Units 06:10 07:58 12:30 Hgb (10.1-14.3) gm/dl MCH (28-32) pg RDW (13.2-15.2) % Plt Count (140-440) K/mm3 Carbon Dioxide (22-30) mmol/L BUN (7-17) mg/dL Creatinine (0.7-1.2) mg/dL Glucose (65-100) mg/dL POC Glucose 130 H 131 H (70-105) Calcium (8.4-10.2) mg/dL Lactate Dehydrogenase 217 H (91-180) units/L 02/06/19 Range/Units 18:19 Hgb (10.1-14.3) gm/dl MCH (28-32) pg RDW (13.2-15.2) % Plt Count (140-440) K/mm3 Carbon Dioxide (22-30) mmol/L BUN (7-17) mg/dL Creatinine (0.7-1.2) mg/dL Glucose (65-100) mg/dL POC Glucose 243 H (70-105) Calcium (8.4-10.2) mg/dL Lactate Dehydrogenase (91-180) units/L Medications & Allergies - Medications Allergies/Adverse Reactions: Allergies Penicillins Allergy (Verified 04/03/18 12:43) Itching Home Medications: Home Medications Medication Instructions Recorded Confirmed Last Taken Type Aspirin [Aspirin BABY CHEW TAB] 81 mg PO DAILY #100 tab.chew 09/07/18 01/29/19 Unknown Rx AtorvaSTATin [Lipitor] 40 mg PO QHS #30 tablet 09/07/18 01/29/19 Unknown Rx Gabapentin [Neurontin] 300 mg PO TID #90 capsule 09/07/18 01/29/19 Unknown Rx Insulin Glargine [Lantus VIAL] 20 units SUB-Q QHS #1 vial 09/07/18 01/29/19 Unknown Rx Ipratropium/Albuterol Sulfate 1 ampul IH QIDRT #120 ampul.neb 09/07/18 01/29/19 Unknown Rx [DUONEB *Not for PRN Use*] Furosemide [Lasix TAB] 40 mg PO BID #60 tablet 10/08/18 01/29/19 Unknown Rx LORazepam [Ativan] 1 mg PO Q4H PRN #14 tablet 10/08/18 01/29/19 Unknown Rx Lisinopril [Prinivil] 2.5 mg PO QDAY 10/16/18 01/29/19 Unknown History ALBUTEROL NEB's [Proventil 0.083% 2.5 mg IH Q4HRT PRN nebu 10/31/18 01/29/19 Unknown Rx NEBS] Arformoterol Nebu [Brovana Nebu] 15 mcg IH Q12HRT ml 10/31/18 01/29/19 Unknown Rx Aspirin [Aspirin BABY CHEW TAB] 81 mg PO DAILY tab.chew 10/31/18 01/29/19 Unknown Rx AtorvaSTATin [Lipitor] 40 mg PO QHS tablet 10/31/18 01/29/19 Unknown Rx Budesonide [Pulmicort Respules] 0.5 mg IH Q12HRT nebu 10/31/18 01/29/19 Unknown Rx Digoxin [Lanoxin] 0.25 mg PO DAILY@1700 tablet 10/31/18 01/29/19 Unknown Rx Gabapentin [Neurontin] 300 mg PO TID capsule 10/31/18 01/29/19 Unknown Rx HYDROcodone/APAP 5-325 [[place] 1 each PO Q6H PRN #20 tablet 10/31/18 01/29/19 Unknown Rx 5-325 mg TAB] Insulin Glargine [Lantus VIAL] 20 units SUB-Q QHS units 10/31/18 01/29/19 Unknown Rx LORazepam [Ativan] 1 mg PO Q4H PRN tablet 10/31/18 01/29/19 Unknown Rx Lisinopril [Zestril TAB] 2.5 mg PO QDAY tablet 10/31/18 01/29/19 Unknown Rx Metoprolol [Lopressor TAB] 50 mg PO Q8HR tablet 10/31/18 01/29/19 Unknown Rx Zolpidem [Ambien] 5 mg PO QHS PRN tablet 10/31/18 01/29/19 Unknown Rx predniSONE [Deltasone] 20 mg PO QDAY tablet 10/31/18 01/29/19 Unknown Rx oxyCODONE /ACETAMINOPHEN [Percocet 1 tab PO Q6HR PRN #15 tablet 11/05/18 01/29/19 Unknown Rx 5/325] Active Medications: Generic Name Dose Route Start Last Admin Trade Name Freq PRN Reason Stop Dose Admin Albuterol/Ipratropium 1 ampul 01/28/19 20:00 02/06/19 19:28 Duoneb *Not For Prn Use* IH Not Given TIDRT [facility] Alprazolam 0.5 mg 01/28/19 17:22 02/06/19 17:08 Xanax PO 0.5 mg BID PRN Administration Anxiety Amiodarone HCl 200 mg 01/28/19 22:00 02/06/19 08:39 Cordarone PO 200 mg BID LUZ Administration Apixaban 5 mg 02/01/19 10:00 02/06/19 13:19 Eliquis PO Not Given Q12HR [facility] Protocol Ascorbic Acid 500 mg 01/28/19 22:00 02/06/19 08:37 Vitamin C PO 500 mg BID LUZ Administration Atorvastatin Calcium 40 mg 01/28/19 21:00 02/05/19 21:20 Lipitor PO 40 mg QHS LUZ Administration Bisacodyl 10 mg 01/28/19 17:47 Dulcolax OR QDAY PRN Constipation Dextrose 50 ml 01/28/19 17:05 D50w (25gm) Syringe IV PRN PRN Hypoglycemia Diclofenac Sodium 1 applic 01/30/19 14:00 02/06/19 14:38 Diclofenac 1% TP 1 applic TID LUZ Administration Ergocalciferol 50,000 unit 02/04/19 10:00 02/04/19 09:05 Vitamin D2 PO 50,000 unit We LUZ Administration Furosemide 40 mg 01/31/19 09:31 02/06/19 17:07 Lasix PO 40 mg 0600,1800 LUZ Administration Gabapentin 300 mg 01/28/19 18:00 02/06/19 17:08 Neurontin PO 300 mg Q6HR LUZ Administration Hydralazine HCl 10 mg 01/28/19 17:47 Apresoline PO Q6H PRN Hypertension Vancomycin HCl 1 gm in 250 mls @ 166.667 mls/hr 02/04/19 18:00 02/06/19 17:14 Vancomycin/Ns 1 Gm/250 Ml IV 02/07/19 20:59 166.667 mls/hr Q12HR@0600,1800 LUZ Administration Insulin Glargine 20 units 01/29/19 21:00 02/05/19 21:51 Lantus SUB-Q 20 units QHS LUZ Administration Insulin Human Lispro 0 unit 01/28/19 22:00 02/06/19 16:30 Humalog SUB-Q 2 unit ACHS LUZ Administration Protocol Metoprolol Succinate 100 mg 01/29/19 08:00 02/06/19 08:38 Toprol Xl PO 100 mg QDAY LUZ Administration Multivitamins/Minerals 1 each 01/29/19 08:00 02/06/19 08:39 Theragran-M Tab PO 1 each QDAY LUZ Administration Ondansetron HCl 4 mg 01/28/19 17:47 01/31/19 02:32 Zofran Odt PO 4 mg Q8H PRN Administration Nausea And Vomiting Oxycodone/Acetaminophen 1 tab 01/28/19 17:38 02/06/19 17:07 Percocet 5/325 PO 1 tab Q4H PRN Administration Pain, Moderate (4-6) Paroxetine HCl 10 mg 01/29/19 08:00 02/06/19 08:37 Paxil PO 10 mg QDAY LUZ Administration Polyethylene Glycol 17 gm 01/28/19 17:47 Miralax 3350 PO QDAY PRN Constipation Potassium Chloride 20 meq 02/04/19 18:00 02/06/19 08:38 K-Dur PO 02/07/19 17:59 20 meq QDAY LUZ Administration Prednisone 10 mg 02/06/19 08:00 02/06/19 08:36 Deltasone PO 02/11/19 07:59 10 mg QDAY LUZ Administration Tiotropium [place] 1 puff 01/29/19 09:00 02/06/19 07:42 Spiriva IH Not Given Q24HRT [facility] Zinc Sulfate 220 mg 01/28/19 22:00 02/06/19 08:39 Zinc Sulfate PO 220 mg BID LUZ Administration
[2019-02-06 20:39] LABS: Iron 20 ug/dL (37-170); Total Iron Binding Capacity 234 mcg/dL (250-450)
[2019-02-06] MEDS: LANTUS SUB-Q SCH (21:38)
[2019-02-06] MEDS: MELATONIN PO SCH (22:35)
[2019-02-07] MEDS: PERCOCET 5/325 PO PRN ×6 (01:13→22:46)
[2019-02-07] MEDS: VANCOMYCIN/NS 1 GM/250 ML 1 GM/250 ML BAG IV SCH ×2 (05:13→18:36)
[2019-02-07] MEDS: NEURONTIN PO SCH ×3 (05:14→18:40)
[2019-02-07] MEDS: LASIX PO SCH ×2 (06:32→18:39)
[2019-02-07] MEDS: XANAX PO PRN ×2 (06:33→13:20)
[2019-02-07] MEDS: DUONEB *Not for PRN Use IH SCH ×3 (07:43→21:03)
[2019-02-07] MEDS: HumaLOG SUB-Q SCH ×4 (08:00→22:07)
[2019-02-07] MEDS: SPIRIVA IH SCH (08:11)
[2019-02-07] MEDS: TOPROL XL PO SCH (09:00)
[2019-02-07] MEDS: CORDARONE PO SCH ×2 (10:41→21:49)
[2019-02-07] MEDS: VITAMIN C PO SCH ×2 (10:44→21:50)
[2019-02-07] MEDS: PAXIL PO SCH (10:45)
[2019-02-07] MEDS: THERAGRAN-M Tab PO SCH (10:46)
[2019-02-07] MEDS: K-DUR PO SCH (10:47)
[2019-02-07] MEDS: ZINC SULFATE PO SCH ×2 (10:47→21:50)
[2019-02-07] MEDS: DELTASONE PO SCH (11:01)
[2019-02-07] MEDS: ELIQUIS PO SCH ×2 (11:05→21:49)
[2019-02-07] MEDS: DICLOFENAC 1% TP SCH ×3 (11:05→21:45)
[2019-02-07] MEDS: ENTRESTO 24 - 26 MG PO SCH ×2 (11:05→22:07)
--- NOTE | 2019-02-07 11:46 | Progress Note ---
Assessment and Plan 1. Peripheral vascular disease status post left BKA 2. Coronary artery disease status post CABG 3. Chronic atrial fibrillation flutter 4. Chronic obstructive pulmonary disease 5. Essential hypertension 6. Type 2 diabetes mellitus 7. Obesity Plan. Cardiac-clay stable continue present conservative cardiac management Subjective Date of service: 02/07/19 Principal diagnosis: Left BKA, debility Interval history: No cardiac symptoms Objective Vital Signs Temp Pulse Pulse Pulse Resp Resp Resp 02/07/19 07:45 02/07/19 07:44 86 18 02/07/19 07:43 97.8 F 118 H 20 02/07/19 06:14 20 02/07/19 05:14 18 02/07/19 02:13 20 02/07/19 01:13 20 02/06/19 22:34 20 02/06/19 22:00 20 02/06/19 21:34 20 02/06/19 21:00 118 H 20 02/06/19 19:40 97.7 F 119 H 18 BP Pulse Ox 02/07/19 07:45 96 02/07/19 07:44 02/07/19 07:43 92/63 97 02/07/19 06:14 02/07/19 05:14 02/07/19 02:13 02/07/19 01:13 02/06/19 22:34 02/06/19 22:00 02/06/19 21:34 02/06/19 21:00 98 02/06/19 19:40 124/80 98 - Physical Examination General: No Apparent Distress, Other (obese) HEENT: Positive: PERRL Neck: Positive: trachea midline. Negative: JVD/HJR Cardiac: Positive: Regular Rate, S1/S2, PMI, Laterally Displaced. Negative: S3, S4 Lungs: Positive: clear to auscultation, No Wheeze, Rales, Rhonchi Neuro: Positive: Grossly Intact Abdomen: Positive: Unremarkable, Active Bowel Sounds Extremities: Present: Other (left BKA). Absent: edema
--- NOTE | 2019-02-07 15:36 | Progress Note ---
Assessment and Plan - Patient Problems (1) Abdominal pain Current Visit: No Status: Acute Qualifiers: Abdominal location: generalized Qualified Code(s): R10.84 - Generalized abdominal pain Plan to address problem: pain control. (2) Anal wart Current Visit: No Status: Acute Plan to address problem: local tx, or ID eval. (3) Atrial flutter Current Visit: No Status: Acute Plan to address problem: follow cardiology. (4) Congestive cardiomyopathy Current Visit: No Status: Acute Plan to address problem: follow cardiology. (5) DVT prophylaxis Current Visit: No Status: Acute Plan to address problem: continue as current. (6) Anemia Current Visit: Yes Status: Acute Plan to address problem: See notes section. (7) Thrombocytopenia Current Visit: Yes Status: Acute Plan to address problem: see notes section. Subjective Date of service: 02/07/19 Principal diagnosis: Left BKA, debility Interval history: patient seen/examined, resting in bed, NAD, labs reviewed.PLT dropped by additional 2K., still no bleeding. patient seen/examined, resting in bed, records reviewed. No new issues at this time. Objective - Constitutional Vitals: Vital Signs - 12hr 02/07/19 02/07/19 02/07/19 05:14 06:14 07:43 Temperature 97.8 F Pulse Rate 118 H Pulse Rate [ Posterior Bilateral Throughout] Respiratory 18 20 20 Rate Respiratory Rate [Posterior Bilateral Throughout] Blood Pressure 92/63 O2 Sat by Pulse 97 Oximetry 02/07/19 02/07/19 02/07/19 07:44 07:45 11:53 Temperature 98.1 F Pulse Rate 126 H Pulse Rate [ 86 Posterior Bilateral Throughout] Respiratory 22 Rate Respiratory 18 Rate [Posterior Bilateral Throughout] Blood Pressure 108/66 O2 Sat by Pulse 96 98 Oximetry 02/07/19 13:20 Temperature Pulse Rate Pulse Rate [ 86 Posterior Bilateral Throughout] Respiratory Rate Respiratory 18 Rate [Posterior Bilateral Throughout] Blood Pressure O2 Sat by Pulse Oximetry General appearance: Present: no acute distress, well-nourished - EENT Eyes: PERRL, EOM intact ENT: hearing intact, clear oral mucosa Ears: bilateral: normal - Neck Neck: supple, normal ROM - Respiratory Respiratory effort: normal Respiratory: bilateral: CTA - Breasts Breasts: deferred - Cardiovascular Rhythm: regular Heart Sounds: Present: S1 & S2. Absent: gallop, rub Extremities: pulses intact, No edema, normal color, Full ROM - Gastrointestinal General gastrointestinal: Present: soft, non-tender, non-distended, normal bowel sounds - Genitourinary Female genitourinary: deferred - Integumentary Integumentary: clear, warm, dry - Musculoskeletal Musculoskeletal: 1, strength equal bilaterally - Neurologic Neurologic: moves all extremities - Psychiatric Psychiatric: memory intact, appropriate mood/affect, intact judgment & insight - Labs CBC & Chem 7: 02/06/19 06:10 02/06/19 06:10 Labs: Abnormal lab results 02/06/19 02/06/19 02/06/19 Range/Units 18:19 19:52 21:25 D-Dimer (0-234) ng/mlDDU POC Glucose 243 H 213 H (70-105) Iron 20 L (37-170) ug/dL TIBC 234 L (250-450) mcg/dL 02/07/19 Range/Units 06:15 D-Dimer 5414.41 H (0-234) ng/mlDDU POC Glucose (70-105) Iron (37-170) ug/dL TIBC (250-450) mcg/dL
[2019-02-07] MEDS: MELATONIN PO SCH (21:47)
[2019-02-07] MEDS: LANTUS SUB-Q SCH (22:06)
[2019-02-08] MEDS: NEURONTIN PO SCH ×4 (00:26→17:00)
[2019-02-08] MEDS: LASIX PO SCH ×2 (05:02→17:00)
[2019-02-08] MEDS: PERCOCET 5/325 PO PRN ×5 (05:02→21:39)
[2019-02-08] MEDS: ENTRESTO 24 - 26 MG PO SCH ×2 (09:21→21:42)
[2019-02-08] MEDS: TOPROL XL PO SCH (09:21)
[2019-02-08] MEDS: THERAGRAN-M Tab PO SCH (09:21)
[2019-02-08] MEDS: PAXIL PO SCH (09:21)
[2019-02-08] MEDS: DELTASONE PO SCH (09:21)
[2019-02-08] MEDS: CORDARONE PO SCH ×2 (09:21→21:40)
[2019-02-08] MEDS: VITAMIN C PO SCH ×2 (09:22→21:40)
[2019-02-08] MEDS: ELIQUIS PO SCH ×2 (09:22→21:39)
[2019-02-08] MEDS: ZINC SULFATE PO SCH ×2 (09:22→21:39)
[2019-02-08] MEDS: DICLOFENAC 1% TP SCH ×3 (09:25→21:37)
[2019-02-08] MEDS: HumaLOG SUB-Q SCH ×4 (09:25→21:43)
[2019-02-08] MEDS: XANAX PO PRN ×2 (09:30→21:39)
--- NOTE | 2019-02-08 09:48 | Progress Note ---
Subjective Date of service: 02/06/19 Principal diagnosis: Left BKA, debility Interval history: 58-year-old female with recent history of a left BKA revision started to develop extreme pain in the legs and buttocks along with tachycardia. At the ER she was found to have atrial fibrillation with RVR. Her reports she was supposed to be on amiodarone was apparently noncompliant with this. She was started on amiodarone drip. She developed an acute mental status change but workup was negative for any acute changes. She is transferred to the ICU placed on BiPAP with some improvements noted. She developed MRSA bacteremia and was started on vancomycin. On 01/21 she was noted to have a right brachial DVT and was placed on a heparin drip. This was not seen in paperwork that we reviewed prior to admission and she was not transferred on any anticoagulation. There was mention under atrial fibrillation that she was not a good candidate for anticoagulation, however with both atrial fibrillation and a DVT she is at a higher risk for an embolic event. Discussed with the patient risks and benefits and have started her on Eliquis. She continued to have persistent respiratory issues with w heezing and shortness of breath. She was started on Entresto along with IV steroids and is now on oral steroid wean. Patient is participating in therapy and making slow progress. Taking rest breaks as needed. +BM, numerous. Denies palpitations, N/V, diarrhea. Still having cough with sputum at times but improving. STill on hypotensive side with some dizziness reported, but BP has improved somewhat. I question some of the BP readings. HR has been fairly elevated considering she is on amiodarone and metoprolol - remains in aFib, on telemonitoring. Telemonitor taken off for bath and not replaced. Pt initially refused CXR and KUB (Abd pain). Spoke with her and she agreed to get them later this morning. Informed nursing. Will start lymphedema wrapping for legs. Discussed plan with patient and family. Continue to monitor. All records, vitals, labs and medications were reviewed. No other issues per patient, nursing or therapy. Objective - Exam Narrative Exam: MUSCULOSKELETAL SPECIALTY EXAM CONSTITUTIONAL: Well developed, well nourished, appropriately groomed, obese EENT: EOMI. Hearing intact to soft voice RESPIRATORY: Rhonchi bilaterally, slightly better, no increased work of breathing, on nasal cannula CARDIOVASCULAR: Regular Rhythm, tachycardic, no tenderness in BUE or BLE. 3+ pitting edema in BLE, with weeping today. All extremities warm. No bleeding noted today GI: + bowel sounds, soft, NTTP, nondistended, protuberant INTEGUMENTARY: Widespread bruising, sores, and lesions, no rash or masses noted in extremities. MUSCULOSKELETAL: BUE and BLE normal without defect, crepitus, subluxation, effusion, arthritic changes or TTP except for Left BKA and right toe amputations as noted, and right anterior shoulder TTP BUE 4/5, good ROM, with normal tone. BLE 3/5 decreased ROM, with normal tone NEURO: CN 2-12 grossly intact. Sensation intact but altered in all extremities. No tremor noted in 4 extremities. POSTURE and GAIT: Sitting posture and fair. Balance appears poor. Standing balance is poor. PSYCH: Alert, oriented x3, affect appears anxious. Insight appears intact. - Constitutional Vitals: Vital Signs - 12hr 02/07/19 02/07/19 02/08/19 22:00 22:46 05:02 Temperature Pulse Rate Respiratory 23 24 Rate Respiratory 22 Rate [Left Leg] Blood Pressure O2 Sat by Pulse Oximetry 02/08/19 02/08/19 07:02 09:21 Temperature 36.7 C Pulse Rate 126 H 126 H Respiratory 22 Rate Respiratory Rate [Left Leg] Blood Pressure 113/74 113/74 O2 Sat by Pulse 98 Oximetry - Allied health notes Allied health notes reviewed: nursing, PT, OT FIMS assessment as documented by PT/OT/ST: Grooming Patient cleans teeth/dentures: Yes Patient epperson/brushes hair: Yes Patient washes, rinses and Yes dries face: Patient washes, rinses and Yes dries hands: Patient shaves: No Patient applies make-up: No Patient performs (no make-up/ 10/02 (100%) shaving): Grooming FIM Score 4. Minimal Assistance (Patient = 75% or more. Needs touching.) Social interaction/Memory/Problem solving Social Interaction FIM Score 6. Mod. [place] (Mostly appropriate. May need meds. No supv.) Memory FIM Score 7. Complete [place] (Remembers people and routines.) Problem Solving FIM Score 5. Supervision (Needs cueing <10% to solve routine problems.) Transfers Mode of Locomotion: Wheelchair Bed/Chair/Wheelchair Transfers 1. Total Assistance (Patient less than 25%. 2 or FIM Score more persons.) Locomotion- Stairs Stairs FIM Score 0. Activity does not occur Locomotion- walk/wheelchair Most Frequent Mode of Wheelchair Locomotion: Ambulation Distance 0 Walking FIM Score 0. Activity does not occur Wheelchair Propulsion Distance 8 Wheelchair FIM Score 1. Total Assistance (Pt. < 25%, 2 or more person assist, or <50 ft.) Eating Eating FIM Score 5. Supervision/Set-Up (Needs help w/ containers, cutting meat, etc.) Dressing-Upper body Patient retrieves clothing No items: Patient applies/removes UE No prosthesis or orthosis: Upper Body Dressing FIM Score 4. Minimal Assistance (Patient = 75% or more. Needs touching.) Dressing-lower body Lower Body Dressing Device Float Nurse/Stick,Sock Aid Patient retrieves clothing No items: Patient applies/removes LE N/A prosthesis or orthosis: Lower Body Dressing FIM Score 3. Moderate Assistance (Patient = 50% or more) - Labs CBC & Chem 7: 02/06/19 06:10 02/06/19 06:10 Labs: Laboratory Results - last 72 hr 02/05/19 02/05/19 02/05/19 11:50 17:07 21:33 WBC RBC Hgb Hct MCV MCH MCHC RDW Plt Count Fibrinogen D-Dimer Sodium Potassium Chloride Carbon Dioxide Anion Gap BUN Creatinine Estimated GFR BUN/Creatinine Ratio Glucose POC Glucose 70 259 H 323 H Calcium Iron TIBC Ferritin Lactate Dehydrogenase Vitamin B12 02/06/19 02/06/19 02/06/19 06:10 06:10 06:10 WBC 8.5 RBC 3.97 Hgb 9.8 L Hct 31.3 MCV 79 MCH 25 L MCHC 31 RDW 23.3 H Plt Count 122 L Fibrinogen D-Dimer Sodium 140 Potassium 4.0 Chloride 100.5 Carbon Dioxide 31 H Anion Gap 13 BUN 18 H Creatinine 0.4 L Estimated GFR > 60 BUN/Creatinine Ratio 45 Glucose 127 H POC Glucose Calcium 7.6 L Iron TIBC Ferritin Lactate Dehydrogenase Vitamin B12 498.2 02/06/19 02/06/19 02/06/19 06:10 07:58 12:30 WBC RBC Hgb Hct MCV MCH MCHC RDW Plt Count Fibrinogen D-Dimer Sodium Potassium Chloride Carbon Dioxide Anion Gap BUN Creatinine Estimated GFR BUN/Creatinine Ratio Glucose POC Glucose 130 H 131 H Calcium Iron TIBC Ferritin Lactate Dehydrogenase 217 H Vitamin B12 02/06/19 02/06/19 02/06/19 18:19 19:52 19:52 WBC RBC Hgb Hct MCV MCH MCHC RDW Plt Count Fibrinogen D-Dimer Sodium Potassium Chloride Carbon Dioxide Anion Gap BUN Creatinine Estimated GFR BUN/Creatinine Ratio Glucose POC Glucose 243 H Calcium Iron 20 L TIBC 234 L Ferritin 111.0 Lactate Dehydrogenase Vitamin B12 02/06/19 02/07/19 02/07/19 21:25 06:15 07:50 WBC RBC Hgb Hct MCV MCH MCHC RDW Plt Count Fibrinogen 397 D-Dimer 5414.41 H Sodium Potassium Chloride Carbon Dioxide Anion Gap BUN Creatinine Estimated GFR BUN/Creatinine Ratio Glucose POC Glucose 213 H 87 Calcium Iron TIBC Ferritin Lactate Dehydrogenase Vitamin B12 02/07/19 02/07/19 02/07/19 11:48 16:07 22:02 WBC RBC Hgb Hct MCV MCH MCHC RDW Plt Count Fibrinogen D-Dimer Sodium Potassium Chloride Carbon Dioxide Anion Gap BUN Creatinine Estimated GFR BUN/Creatinine Ratio Glucose POC Glucose 96 159 H 235 H Calcium Iron TIBC Ferritin Lactate Dehydrogenase Vitamin B12 02/08/19 07:09 WBC RBC Hgb Hct MCV MCH MCHC RDW Plt Count Fibrinogen D-Dimer Sodium Potassium Chloride Carbon Dioxide Anion Gap BUN Creatinine Estimated GFR BUN/Creatinine Ratio Glucose POC Glucose 178 H Calcium Iron TIBC Ferritin Lactate Dehydrogenase Vitamin B12 Assessment and Plan Left BKA: Continue supportive care. We'll continue to work with therapy on transfers in order to facilitate safe transition home. At this point based on the patient's comorbidities it does not appear that she will be a good candidate for a prosthesis. We will likely discharge home at wheelchair level. COPD: Continue respiratory support with prednisone and inhalers. DuoNeb. Respiratory therapy eval and nasal cannula for oxygen. CHF: Continue diuresis, monitor renal function, continue Entresto - consult Paul. Heart due to hypotension to see if there are alternatives Hypertension: Continue medications and adjust as needed, hypotensive currently. Have asked about placement and size of cuff - not sure I believe some of the values Diabetes, poorly controlled: Continue controlled carb diet, continue insulin monitor and adjust as needed Atrial fibrillation: Continue rate control. Eliquis started for anticoagulation. On tele. Cardiology consult Coronary artery disease: ASA and plavix d/c'd due to thrombocytopenia and minor bleeding. Monitor for any signs of bleeding. Monitor for any chest pain or cardiac symptoms. Peripheral vascular disease: Continue aspirin monitor for any signs of bleeding. Monitor H&H DVT R brachial vein: Discussed risk and benefits with patient, confirmed with Doppler, started Eliquis. Monitor for any signs of bleeding. Hgb stable Morbid obesity: Discussed weight loss, lifestyle change, dietary modification Suspected pneumonia: Completed Levaquin, CXR Saturday for f/u. Short course mucomyst MRSA bacteremia: Complete vancomycin. D/C isolation. Last blood culture was negative Anxiety/depression: continue Xanax and Paxil Right shoulder pain: Chronic in nature. Speed's POS. Voltaren gel, modalities Z73.6 ADL dysfunction: OT will work on improving ability to perform ADLs (including assistive devices) to increase independence and decrease caregiver burden and improve functional transfers and mobility training. R26.2 Difficulty walking: PT will work on gait training and proper use of assistive devices and advance as appropriate to use of stairs and outside ambulation on uneven surfaces. R26.81 Unsteadiness on feet: PT will work on improving static and dynamic sitting and standing balance as well as proper use of assistive devices to decrease risk of falls. R26.89 Abnormality of gait: PT will work to improve safety and efficiency of gait through neuromotor training and gait training along with instruction on proper use of assistive devices. M62.81 Muscle weakness: PT & OT will work on strengthening exercises to improve functional strength including mixture of closed and open kinetic chain exercises. R53.81 Debility: PT & OT will work on improving overall functional status to improve participation with ADLs, mobility and social involvement. R53.83 Fatigue: PT & OT will work on improving endurance through aerobic exercises and therapeutic activity while monitoring patients tolerance for activity and vital signs as needed. DVT ppx: Started on Eliquis for RUE DVT Pain: Continue physical modalities in therapy and pain medications as needed to achieve functional pain control. Patient remains on Percocet for chronic pain Sleep: Monitor and address as needed. Melatonin Bowel: Monitor and address as needed. Increased freq per pt but not loose. KUB Appetite: Monitor and address as needed. Discharge planning: Pending therapy progress and care plan meeting. Will continue discussion with therapy team, SW, patient and family. Plan for 02/19 d/c Restrictions/ Precautions: Falls, tele-monitoring WB status: FWB Functional Hx: ADLs: Needed assistance Cognition: Ind Mobility: RW Barriers to Discharge: Decreased mobility and ability to perform self care, balance deficits, weakness Estimated Length of Stay: 1014 days Discharge Destination: Home with family
--- NOTE | 2019-02-08 11:19 | Progress Note ---
Assessment and Plan 1. Peripheral vascular disease status post left BKA 2. Coronary artery disease status post CABG 3. Chronic atrial fibrillation flutter 4. Chronic obstructive pulmonary disease 5. Essential hypertension 6. Type 2 diabetes mellitus 7. Obesity Plan. Cardiac-clay stable continue present conservative cardiac management Continue Rehab Subjective Date of service: 02/08/19 Principal diagnosis: Left BKA, debility Interval history: No cardiac symptoms Objective Vital Signs Temp Pulse Pulse Pulse Pulse Resp Resp 02/08/19 09:21 126 H 02/08/19 07:02 98.0 F 126 H 22 02/08/19 05:02 24 02/07/19 22:46 23 02/07/19 22:00 02/07/19 21:05 85 80 18 02/07/19 21:00 116 H 22 02/07/19 19:30 97.4 F L 121 H 18 02/07/19 17:00 97.7 F 124 H 24 02/07/19 13:20 86 02/07/19 11:53 98.1 F 126 H 22 Resp Resp BP BP Pulse Ox 02/08/19 09:21 113/74 02/08/19 07:02 113/74 98 02/08/19 05:02 02/07/19 22:46 02/07/19 22:00 22 02/07/19 21:05 20 95 02/07/19 21:00 02/07/19 19:30 113/83 98 02/07/19 17:00 107/70 95 02/07/19 13:20 18 02/07/19 11:53 108/66 98 - Physical Examination General: No Apparent Distress, Other (obese) HEENT: Positive: PERRL Neck: Positive: trachea midline. Negative: JVD/HJR Cardiac: Positive: Reg Rate and Rhythm, S1/S2, PMI, Laterally Displaced Lungs: Positive: Normal Breath Sounds, No Wheeze, Rales, Rhonchi Neuro: Positive: Grossly Intact Abdomen: Positive: Unremarkable, Active Bowel Sounds Extremities: Present: Other (left BKA). Absent: edema
--- NOTE | 2019-02-08 14:33 | Progress Note ---
Assessment and Plan - Patient Problems (1) Abdominal pain Current Visit: No Status: Acute Qualifiers: Abdominal location: generalized Qualified Code(s): R10.84 - Generalized abdominal pain Plan to address problem: pain control. (2) Anal wart Current Visit: No Status: Acute Plan to address problem: local tx, or ID eval. (3) Atrial flutter Current Visit: No Status: Acute Plan to address problem: follow cardiology. (4) Congestive cardiomyopathy Current Visit: No Status: Acute Plan to address problem: follow cardiology. (5) DVT prophylaxis Current Visit: No Status: Acute Plan to address problem: continue as current. (6) Anemia Current Visit: Yes Status: Acute Plan to address problem: See notes section. stable. (7) Thrombocytopenia Current Visit: Yes Status: Acute Plan to address problem: see notes section. probably infection in the wound related, vs nutrition, iron is low, B12 low end of NL. other etiology, is the vancomycin. Subjective Date of service: 02/08/19 Principal diagnosis: Left BKA, debility Interval history: patient seen/examined, resting in bed, NAD, labs reviewed.PLT dropped by additional 2K., still no bleeding. patient seen/examined, resting in bed, records reviewed. No new issues at this time. Patient seen/examined, resting in bed, labs reviewed, case d/w patient Objective - Constitutional Vitals: Vital Signs - 12hr 02/08/19 02/08/19 02/08/19 05:02 07:02 09:00 Temperature 98.0 F Pulse Rate 126 H Pulse Rate [ 126 H Apical] Respiratory 24 22 22 Rate Blood Pressure 113/74 O2 Sat by Pulse 98 98 Oximetry 02/08/19 02/08/19 09:21 11:35 Temperature 97.9 F Pulse Rate 126 H 129 H Pulse Rate [ Apical] Respiratory 20 Rate Blood Pressure 113/74 113/67 O2 Sat by Pulse 91 Oximetry General appearance: Present: mild distress, well-nourished - EENT Eyes: PERRL, EOM intact ENT: hearing intact, clear oral mucosa Ears: bilateral: normal - Neck Neck: supple, normal ROM - Respiratory Respiratory effort: normal Respiratory: bilateral: CTA - Breasts Breasts: deferred - Cardiovascular Rhythm: regular Heart Sounds: Present: S1 & S2. Absent: gallop, rub Extremities: pulses intact, No edema, normal color, Full ROM - Gastrointestinal General gastrointestinal: Present: soft, non-tender, non-distended, normal bowel sounds Rectal Exam: deferred - Genitourinary Female genitourinary: deferred - Integumentary Integumentary: clear, warm, dry - Musculoskeletal Musculoskeletal: 1, strength equal bilaterally - Neurologic Neurologic: moves all extremities - Psychiatric Psychiatric: memory intact, appropriate mood/affect, intact judgment & insight - Labs CBC & Chem 7: 02/06/19 06:10 02/06/19 06:10 Labs: Abnormal lab results 02/07/19 02/07/19 02/08/19 Range/Units 16:07 22:02 07:09 POC Glucose 159 H 235 H 178 H (70-105) 02/08/19 Range/Units 11:42 POC Glucose 108 H (70-105)
--- NOTE | 2019-02-08 16:45 | Progress Note ---
Subjective Date of service: 02/08/19 Principal diagnosis: Left BKA, debility Interval history: 58-year-old female with recent history of a left BKA revision started to develop extreme pain in the legs and buttocks along with tachycardia. At the ER she was found to have atrial fibrillation with RVR. Her reports she was supposed to be on amiodarone was apparently noncompliant with this. She was started on amiodarone drip. She developed an acute mental status change but workup was negative for any acute changes. She is transferred to the ICU placed on BiPAP with some improvements noted. She developed MRSA bacteremia and was started on vancomycin. On 01/21 she was noted to have a right brachial DVT and was placed on a heparin drip. This was not seen in paperwork that we reviewed prior to admission and she was not transferred on any anticoagulation. There was mention under atrial fibrillation that she was not a good candidate for anticoagulation, however with both atrial fibrillation and a DVT she is at a higher risk for an embolic event. Discussed with the patient risks and benefits and have started her on Eliquis. She continued to have persistent respiratory issues with w heezing and shortness of breath. She was started on Entresto along with IV steroids and is now on oral steroid wean. Patient is participating in therapy and making progress. Taking rest breaks as needed. +BM. Denies palpitations, N/V, diarrhea. Cough decreased. BP improved. HR has been fairly elevated considering she is on amiodarone and metoprolol - remains in aFib. Telemonitor d/c by cardiology - appreciate assistance. CXR and KUB rescheduled to Saturday. Will start lymphedema wrappin g for legs. Discussed plan with patient. Continue to monitor. Discussed with Dr Rider. Cont to for improvement in plts. All records, vitals, labs and medications were reviewed. No other issues per patient, nursing or therapy. Objective - Exam Narrative Exam: MUSCULOSKELETAL SPECIALTY EXAM CONSTITUTIONAL: Well developed, well nourished, appropriately groomed, obese EENT: EOMI. Hearing intact to soft voice RESPIRATORY: CTA bilaterally, slightly better, no increased work of breathing, on nasal cannula CARDIOVASCULAR: Regular Rhythm, tachycardic, no tenderness in BUE or BLE. 3+ pitting edema in BLE, with weeping today. All extremities warm. No bleeding noted today GI: + bowel sounds, soft, NTTP, nondistended, protuberant INTEGUMENTARY: Widespread bruising, sores, and lesions, no rash or masses noted in extremities. Redness on sacral area, not pressure wound MUSCULOSKELETAL: BUE and BLE normal without defect, crepitus, subluxation, effusion, arthritic changes or TTP except for Left BKA and right toe amputations as noted. BUE 4/5, good ROM, with normal tone. BLE 3/5 decreased ROM, with normal tone NEURO: CN 2-12 grossly intact. Sensation intact but altered in all extremities. No tremor noted in 4 extremities. POSTURE and GAIT: Sitting posture and fair. Balance appears poor. Standing balance is poor. PSYCH: Alert, oriented x3, affect appears anxious. Insight appears intact. - Constitutional Vitals: Vital Signs - 12hr 02/08/19 02/08/19 02/08/19 05:02 07:02 09:00 Temperature 36.7 C Pulse Rate 126 H Pulse Rate [ 126 H Apical] Respiratory 24 22 22 Rate Blood Pressure 113/74 O2 Sat by Pulse 98 98 Oximetry 02/08/19 02/08/19 09:21 11:35 Temperature 36.6 C Pulse Rate 126 H 129 H Pulse Rate [ Apical] Respiratory 20 Rate Blood Pressure 113/74 113/67 O2 Sat by Pulse 91 Oximetry - Allied health notes Allied health notes reviewed: nursing, PT, OT FIMS assessment as documented by PT/OT/ST: Grooming Patient cleans teeth/dentures: Yes Patient epperson/brushes hair: Yes Patient washes, rinses and Yes dries face: Patient washes, rinses and Yes dries hands: Patient shaves: No Patient applies make-up: No Patient performs (no make-up/ 10/02 (100%) shaving): Grooming FIM Score 4. Minimal Assistance (Patient = 75% or more. Needs touching.) Social interaction/Memory/Problem solving Social Interaction FIM Score 6. Mod. [place] (Mostly appropriate. May need meds. No supv.) Memory FIM Score 7. Complete [place] (Remembers people and routines.) Problem Solving FIM Score 5. Supervision (Needs cueing <10% to solve routine problems.) Transfers Mode of Locomotion: Wheelchair Bed/Chair/Wheelchair Transfers 1. Total Assistance (Patient less than 25%. 2 or FIM Score more persons.) Locomotion- Stairs Stairs FIM Score 0. Activity does not occur Locomotion- walk/wheelchair Most Frequent Mode of Wheelchair Locomotion: Ambulation Distance 0 Walking FIM Score 0. Activity does not occur Wheelchair Propulsion Distance 8 Wheelchair FIM Score 1. Total Assistance (Pt. < 25%, 2 or more person assist, or <50 ft.) Eating Eating FIM Score 5. Supervision/Set-Up (Needs help w/ containers, cutting meat, etc.) Dressing-Upper body Patient retrieves clothing No items: Patient applies/removes UE No prosthesis or orthosis: Upper Body Dressing FIM Score 4. Minimal Assistance (Patient = 75% or more. Needs touching.) Dressing-lower body Lower Body Dressing Device News Librarian/Stick,Sock Aid Patient retrieves clothing No items: Patient applies/removes LE N/A prosthesis or orthosis: Lower Body Dressing FIM Score 3. Moderate Assistance (Patient = 50% or more) - Labs CBC & Chem 7: 02/06/19 06:10 02/06/19 06:10 Labs: Laboratory Results - last 72 hr 02/05/19 02/05/19 02/06/19 17:07 21:33 06:10 WBC 8.5 RBC 3.97 Hgb 9.8 L Hct 31.3 MCV 79 MCH 25 L MCHC 31 RDW 23.3 H Plt Count 122 L Fibrinogen D-Dimer Sodium Potassium Chloride Carbon Dioxide Anion Gap BUN Creatinine Estimated GFR BUN/Creatinine Ratio Glucose POC Glucose 259 H 323 H Calcium Iron TIBC Ferritin Lactate Dehydrogenase Vitamin B12 02/06/19 02/06/19 02/06/19 06:10 06:10 06:10 WBC RBC Hgb Hct MCV MCH MCHC RDW Plt Count Fibrinogen D-Dimer Sodium 140 Potassium 4.0 Chloride 100.5 Carbon Dioxide 31 H Anion Gap 13 BUN 18 H Creatinine 0.4 L Estimated GFR > 60 BUN/Creatinine Ratio 45 Glucose 127 H POC Glucose Calcium 7.6 L Iron TIBC Ferritin Lactate Dehydrogenase 217 H Vitamin B12 498.2 02/06/19 02/06/19 02/06/19 07:58 12:30 18:19 WBC RBC Hgb Hct MCV MCH MCHC RDW Plt Count Fibrinogen D-Dimer Sodium Potassium Chloride Carbon Dioxide Anion Gap BUN Creatinine Estimated GFR BUN/Creatinine Ratio Glucose POC Glucose 130 H 131 H 243 H Calcium Iron TIBC Ferritin Lactate Dehydrogenase Vitamin B12 02/06/19 02/06/19 02/06/19 19:52 19:52 21:25 WBC RBC Hgb Hct MCV MCH MCHC RDW Plt Count Fibrinogen D-Dimer Sodium Potassium Chloride Carbon Dioxide Anion Gap BUN Creatinine Estimated GFR BUN/Creatinine Ratio Glucose POC Glucose 213 H Calcium Iron 20 L TIBC 234 L Ferritin 111.0 Lactate Dehydrogenase Vitamin B12 02/07/19 02/07/19 02/07/19 06:15 07:50 11:48 WBC RBC Hgb Hct MCV MCH MCHC RDW Plt Count Fibrinogen 397 D-Dimer 5414.41 H Sodium Potassium Chloride Carbon Dioxide Anion Gap BUN Creatinine Estimated GFR BUN/Creatinine Ratio Glucose POC Glucose 87 96 Calcium Iron TIBC Ferritin Lactate Dehydrogenase Vitamin B12 02/07/19 02/07/19 02/08/19 16:07 22:02 07:09 WBC RBC Hgb Hct MCV MCH MCHC RDW Plt Count Fibrinogen D-Dimer Sodium Potassium Chloride Carbon Dioxide Anion Gap BUN Creatinine Estimated GFR BUN/Creatinine Ratio Glucose POC Glucose 159 H 235 H 178 H Calcium Iron TIBC Ferritin Lactate Dehydrogenase Vitamin B12 02/08/19 11:42 WBC RBC Hgb Hct MCV MCH MCHC RDW Plt Count Fibrinogen D-Dimer Sodium Potassium Chloride Carbon Dioxide Anion Gap BUN Creatinine Estimated GFR BUN/Creatinine Ratio Glucose POC Glucose 108 H Calcium Iron TIBC Ferritin Lactate Dehydrogenase Vitamin B12 Assessment and Plan Left BKA: Continue supportive care. We'll continue to work with therapy on transfers in order to facilitate safe transition home. At this point based on the patient's comorbidities it does not appear that she will be a good candidate for a prosthesis. We will likely discharge home at wheelchair level. COPD: Continue respiratory support with prednisone and inhalers. DuoNeb. Respiratory therapy eval and nasal cannula for oxygen. CHF: Continue diuresis, monitor renal function, continue Entresto - consult Paul. Heart due to hypotension to see if there are alternatives Hypertension: Continue medications and adjust as needed, hypotensive currently. Have asked about placement and size of cuff - not sure I believe some of the [facility] Diabetes, poorly controlled: Continue controlled carb diet, continue insulin monitor and adjust as needed Atrial fibrillation: Continue rate control. Eliquis started for anticoagulation. On tele. Cardiology consult Coronary artery disease: ASA and plavix d/c'd due to thrombocytopenia and minor bleeding. Monitor for any signs of bleeding. Monitor for any chest pain or cardiac symptoms. Peripheral vascular disease: Continue aspirin monitor for any signs of bleeding. Monitor H&H DVT R brachial vein: Discussed risk and benefits with patient, confirmed with Doppler, started Eliquis. Monitor for any signs of bleeding. Hgb stable Morbid obesity: Discussed weight loss, lifestyle change, dietary modification Suspected pneumonia: Completed Levaquin, CXR Saturday for f/u. Short course muc omyst MRSA bacteremia: Complete vancomycin. D/C isolation. Last blood culture was negative Anxiety/depression: continue Xanax and Paxil Skin: continue juancho-care Right shoulder pain: Chronic in nature. Speed's POS. Voltaren gel, modalities Z73.6 ADL dysfunction: OT will work on improving ability to perform ADLs (including assistive devices) to increase independence and decrease caregiver burden and improve functional transfers and mobility training. R26.2 Difficulty walking: PT will work on gait training and proper use of assistive devices and advance as appropriate to use of stairs and outside ambulation on uneven surfaces. R26.81 Unsteadiness on feet: PT will work on improving static and dynamic sitting and standing balance as well as proper use of assistive devices to decrease risk of falls. R26.89 Abnormality of gait: PT will work to improve safety and efficiency of gait through neuromotor training and gait training along with instruction on proper use of assistive devices. M62.81 Muscle weakness: PT & OT will work on strengthening exercises to improve functional strength including mixture of closed and open kinetic chain exercises. R53.81 Debility: PT & OT will work on improving overall functional status to improve participation with ADLs, mobility and social involvement. R53.83 Fatigue: PT & OT will work on improving endurance through aerobic exercises and therapeutic activity while monitoring patients tolerance for activity and vital signs as needed. DVT ppx: Started on Eliquis for RUE DVT Pain: Continue physical modalities in therapy and pain medications as needed to achieve functional pain control. Patient remains on Percocet for chronic pain Sleep: Monitor and address as needed. Melatonin Bowel: Monitor and address as needed. Increased freq per pt but not loose. KUB Appetite: Monitor and address as needed. Discharge planning: Pending therapy progress and care plan meeting. Will continue discussion with therapy team, SW, patient and family. Plan for 02/19 d/c Restrictions/ Precautions: Falls, tele-monitoring WB status: FWB Functional Hx: ADLs: Needed assistance Cognition: Ind Mobility: RW Barriers to Discharge: Decreased mobility and ability to perform self care, balance deficits, weakness Estimated Length of Stay: 1014 days Discharge Destination: Home with family
[2019-02-08] MEDS: DUONEB *Not for PRN Use IH SCH ×2 (20:26→20:43)
[2019-02-08] MEDS: SPIRIVA IH SCH (20:43)
[2019-02-08] MEDS: MELATONIN PO SCH (21:38)
[2019-02-08] MEDS: LANTUS SUB-Q SCH (21:38)
[2019-02-09] MEDS: NEURONTIN PO SCH ×5 (01:08→23:17)
[2019-02-09] MEDS: PERCOCET 5/325 PO PRN ×6 (01:12→23:17)
[2019-02-09] MEDS: LASIX PO SCH ×2 (06:31→17:03)
[2019-02-09] MEDS: DUONEB *Not for PRN Use IH SCH ×3 (07:29→20:38)
[2019-02-09] MEDS: HumaLOG SUB-Q SCH ×4 (07:51→21:33)
--- NOTE | 2019-02-09 08:42 | XRay Report ---
CHEST 2 VIEWS INDICATION: Follow up CHF, cough, PNA. COMPARISON: 01/30/2019 FINDINGS: Support devices: None. Heart: No significant change in mild cardiomegaly. Lungs/pleura: Minimal improvement in pulmonary venous congestion is demonstrated. Near resolution of small bilateral pleural effusions. No evidence for pneumonia. No pneumothorax. Additional findings: None. IMPRESSION: Minimal improvement in CHF since 01/30/2019 Signer Name: Sheldon Meeks Jr, MD Signed: 02/09/2019 8:38 AM Workstation Name: [id number]
--- NOTE | 2019-02-09 10:10 | Progress Note ---
Assessment and Plan s/p left BKA Thrombocytopenia Permanent Atrial fib/flutter on metoprolol and amiodarone for rate control on eliquis for oral anticoagulation therapy. Ischemic cardiomyopathy with EF 30-35% CAD s/p 3v CABG in 2014 Cor [place] COPD Tobacco abuse Htn DM PAD Chronic non-compliance with medical therapy and medical follow up Recommend: Continue medical therapy for permanent atrial fibrillation, ischemic cardiomyopathy and coronary artery disease. Otherwise, conservative cardiac management. Subjective Date of service: 02/09/19 Principal diagnosis: Left BKA, debility Interval history: Patient has no cardiac complaints. Objective Vital Signs Temp Pulse Pulse Resp Resp BP BP 02/09/19 10:03 97.7 F 80 20 106/59 02/09/19 07:31 02/09/19 07:30 85 18 02/08/19 20:29 02/08/19 20:27 99 H 20 02/08/19 19:42 97.8 F 129 H 18 108/75 02/08/19 16:00 97.6 F 121 H 22 121/76 02/08/19 11:35 97.9 F 129 H 20 113/67 Pulse Ox 02/09/19 10:03 96 02/09/19 07:31 96 02/09/19 07:30 02/08/19 20:29 100 02/08/19 20:27 02/08/19 19:42 97 02/08/19 16:00 98 02/08/19 11:35 91 - Physical Examination General: No Apparent Distress, Other (obese) HEENT: Positive: PERRL Neck: Positive: trachea midline. Negative: JVD/HJR Cardiac: Positive: irregularly irregular Lungs: Positive: Decreased Breath Sounds, Wheezes Neuro: Positive: Grossly Intact Extremities: Present: Other (left BKA). Absent: edema
[2019-02-09] MEDS: PAXIL PO SCH (10:24)
[2019-02-09] MEDS: VITAMIN C PO SCH ×2 (10:24→21:33)
[2019-02-09] MEDS: XANAX PO PRN ×2 (10:25→23:21)
[2019-02-09] MEDS: ELIQUIS PO SCH ×2 (10:25→21:35)
[2019-02-09] MEDS: ZINC SULFATE PO SCH ×2 (10:25→21:32)
[2019-02-09] MEDS: DELTASONE PO SCH (10:25)
[2019-02-09] MEDS: CORDARONE PO SCH ×2 (10:28→23:17)
[2019-02-09] MEDS: ENTRESTO 24 - 26 MG PO SCH ×2 (10:29→21:36)
[2019-02-09] MEDS: TOPROL XL PO SCH (10:29)
[2019-02-09] MEDS: THERAGRAN-M Tab PO SCH (10:29)
[2019-02-09] MEDS: DICLOFENAC 1% TP SCH ×3 (10:32→21:37)
[2019-02-09] MEDS: SPIRIVA IH SCH (12:53)
--- NOTE | 2019-02-09 13:12 | Progress Note ---
Subjective Date of service: 02/09/19 Principal diagnosis: Left BKA, debility Interval history: 58-year-old female with recent history of a left BKA revision started to develop extreme pain in the legs and buttocks along with tachycardia. At the ER she was found to have atrial fibrillation with RVR. Her reports she was supposed to be on amiodarone was apparently noncompliant with this. She was started on amiodarone drip. She developed an acute mental status change but workup was negative for any acute changes. She is transferred to the ICU placed on BiPAP with some improvements noted. She developed MRSA bacteremia and was started on vancomycin. On 01/21 she was noted to have a right brachial DVT and was placed on a heparin drip. This was not seen in paperwork that we reviewed prior to admission and she was not transferred on any anticoagulation. There was mention under atrial fibrillation that she was not a good candidate for anticoagulation, however with both atrial fibrillation and a DVT she is at a higher risk for an embolic event. Discussed with the patient risks and benefits and have started her on Eliquis. She continued to have persistent respiratory issues with w heezing and shortness of breath. She was started on Entresto along with IV steroids and is now on oral steroid wean. Patient is participating in therapy and making progress. Taking rest breaks as needed. +BM. Denies palpitations, N/V, diarrhea. Cough decreased. BP improved. HR has been fairly elevated considering she is on amiodarone and metoprolol - remains in aFib. CXR and KUB reviewed, slight improvement in CHF, no obstruction or large stoool burden. Legs weeping again. Will start lym phedema wrapping for legs. Discussed plan with patient. Continue to monitor. Cont to monitor for improvement in plts. All records, vitals, labs and medications were reviewed. No other issues per patient, nursing or therapy. Objective - Exam Narrative Exam: MUSCULOSKELETAL SPECIALTY EXAM CONSTITUTIONAL: Well developed, well nourished, appropriately groomed, obese EENT: EOMI. Hearing intact to soft voice RESPIRATORY: CTA bilaterally, slightly better, no increased work of breathing, on nasal cannula CARDIOVASCULAR: Regular Rhythm, tachycardic, no tenderness in BUE or BLE. 3+ pitting edema in BLE, with weeping today. All extremities warm. No bleeding noted today GI: + bowel sounds, soft, NTTP, nondistended, protuberant INTEGUMENTARY: Widespread bruising, sores, and lesions, no rash or masses noted in extremities. Redness on sacral area, not pressure wound MUSCULOSKELETAL: BUE and BLE normal without defect, crepitus, subluxation, effusion, arthritic changes or TTP except for Left BKA and right toe amputations as noted. BUE 4/5, good ROM, with normal tone. BLE 3/5 decreased ROM, with normal tone NEURO: CN 2-12 grossly intact. Sensation intact but altered in all extremities. No tremor noted in 4 extremities. POSTURE and GAIT: Sitting posture and fair. Balance appears poor. Standing balance is poor. PSYCH: Alert, oriented x3, affect appears anxious. Insight appears intact. - Constitutional Vitals: Vital Signs - 12hr 02/09/19 02/09/19 02/09/19 07:30 07:31 10:03 Temperature 36.5 C Pulse Rate 80 Pulse Rate [ 85 Posterior Bilateral Throughout] Respiratory 20 Rate Respiratory 18 Rate [Posterior Bilateral Throughout] Blood Pressure Blood Pressure 106/59 [Right] O2 Sat by Pulse 96 96 Oximetry 02/09/19 10:29 Temperature Pulse Rate 80 Pulse Rate [ Posterior Bilateral Throughout] Respiratory Rate Respiratory Rate [Posterior Bilateral Throughout] Blood Pressure 106/69 Blood Pressure [Right] O2 Sat by Pulse Oximetry - Allied health notes Allied health notes reviewed: nursing, PT, OT FIMS assessment as documented by PT/OT/ST: Grooming Patient cleans teeth/dentures: Yes Patient epperson/brushes hair: Yes Patient washes, rinses and Yes dries face: Patient washes, rinses and Yes dries hands: Patient shaves: No Patient applies make-up: No Patient performs (no make-up/ 10/02 (100%) shaving): Grooming FIM Score 4. Minimal Assistance (Patient = 75% or more. Needs touching.) Social interaction/Memory/Problem solving Social Interaction FIM Score 6. Mod. [place] (Mostly appropriate. May need meds. No supv.) Memory FIM Score 7. Complete [place] (Remembers people and routines.) Problem Solving FIM Score 5. Supervision (Needs cueing <10% to solve routine problems.) Transfers Mode of Locomotion: Wheelchair Bed/Chair/Wheelchair Transfers 1. Total Assistance (Patient less than 25%. 2 or FIM Score more persons.) Locomotion- Stairs Stairs FIM Score 0. Activity does not occur Locomotion- walk/wheelchair Most Frequent Mode of Wheelchair Locomotion: Ambulation Distance 0 Walking FIM Score 0. Activity does not occur Wheelchair Propulsion Distance 8 Wheelchair FIM Score 1. Total Assistance (Pt. < 25%, 2 or more person assist, or <50 ft.) Eating Eating FIM Score 5. Supervision/Set-Up (Needs help w/ containers, cutting meat, etc.) Dressing-Upper body Patient retrieves clothing No items: Patient applies/removes UE No prosthesis or orthosis: Upper Body Dressing FIM Score 4. Minimal Assistance (Patient = 75% or more. Needs touching.) Dressing-lower body Lower Body Dressing Device Vulnerability Assessment Analyst/Stick,Sock Aid Patient retrieves clothing No items: Patient applies/removes LE N/A prosthesis or orthosis: Lower Body Dressing FIM Score 3. Moderate Assistance (Patient = 50% or more) - Labs CBC & Chem 7: 02/09/19 15:21 02/09/19 15:21 Labs: Laboratory Results - last 72 hr 02/06/19 02/06/19 02/06/19 18:19 19:52 19:52 Fibrinogen D-Dimer POC Glucose 243 H Iron 20 L TIBC 234 L Ferritin 111.0 02/06/19 02/07/19 02/07/19 21:25 06:15 07:50 Fibrinogen 397 D-Dimer 5414.41 H POC Glucose 213 H 87 Iron TIBC Ferritin 02/07/19 02/07/19 02/07/19 11:48 16:07 22:02 Fibrinogen D-Dimer POC Glucose 96 159 H 235 H Iron TIBC Ferritin 02/08/19 02/08/19 02/08/19 07:09 11:42 16:41 Fibrinogen D-Dimer POC Glucose 178 H 108 H 163 H Iron TIBC Ferritin 02/08/19 02/09/19 21:00 07:55 Fibrinogen D-Dimer POC Glucose 152 H 137 H Iron TIBC Ferritin - Imaging and cardiology Chest x-ray: report reviewed, image reviewed Abdominal x-ray: report reviewed (Report for CXR on same date), image reviewed (No increased stool burden or obstruction) Assessment and Plan Left BKA: Continue supportive care. We'll continue to work with therapy on transfers in order to facilitate safe transition home. At this point based on the patient's comorbidities it does not appear that she will be a good candidate for a prosthesis. We will likely discharge home at wheelchair level. COPD: Continue respiratory support with prednisone and inhalers. DuoNeb. Respiratory therapy eval and nasal cannula for oxygen. CHF: Continue diuresis, monitor renal function, continue Entresto - consult Paul. Heart. Hypertension: Continue medications and adjust as needed, improving currently. Diabetes, poorly controlled: Continue controlled carb diet, continue insulin monitor and adjust as needed Atrial fibrillation: Continue rate control. Eliquis started for anticoagulation. On tele. Cardiology consult. Tachycardic 120s Coronary artery disease: ASA and plavix d/c'd due to thrombocytopenia and minor bleeding. Monitor for any signs of bleeding. Monitor for any chest pain or cardiac symptoms. Peripheral vascular disease: monitor for any signs of bleeding. Monitor H&H DVT R brachial vein: Discussed risk and benefits with patient, confirmed with Doppler, started Eliquis. Monitor for any signs of bleeding. Hgb stable Morbid obesity: Discussed weight loss, lifestyle change, dietary modification Suspected pneumonia: Completed Levaquin. Short course mucomyst MRSA bacteremia: Completed vancomycin. D/C isolation. Last blood culture was negative Anxiety/depression: continue Xanax and Paxil Skin: continue juancho-care Right shoulder pain: Chronic in nature. Speed's POS. Voltaren gel, modalities. Pain improved Z73.6 ADL dysfunction: OT will work on improving ability to perform ADLs (including assistive devices) to increase independence and decrease caregiver burden and improve functional transfers and mobility training. R26.2 Difficulty walking: PT will work on gait training and proper use of assistive devices and advance as appropriate to use of stairs and outside ambulation on uneven surfaces. R26.81 Unsteadiness on feet: PT will work on improving static and dynamic sitting and standing balance as well as proper use of assistive devices to decrease risk of falls. R26.89 Abnormality of gait: PT will work to improve safety and efficiency of gait through neuromotor training and gait training along with instruction on proper use of assistive devices. M62.81 Muscle weakness: PT & OT will work on strengthening exercises to improve functional strength including mixture of closed and open kinetic chain exer cises. R53.81 Debility: PT & OT will work on improving overall functional status to improve participation with ADLs, mobility and social involvement. R53.83 Fatigue: PT & OT will work on improving endurance through aerobic exercises and therapeutic activity while monitoring patients tolerance for a ctivity and vital signs as needed. DVT ppx: Started on Eliquis for RUE DVT Pain: Continue physical modalities in therapy and pain medications as needed to achieve functional pain control. Patient remains on Percocet for chronic pain Sleep: Monitor and address as needed. Melatonin Bowel: Monitor and address as needed. Increased freq per pt but not loose. Appetite: Monitor and address as needed. Discharge planning: Pending therapy progress and care plan meeting. Will continue discussion with therapy team, SW, patient and family. Plan for 02/19 d/c Restrictions/ Precautions: Falls, cardiac WB status: FWB Functional Hx: ADLs: Needed assistance Cognition: Ind Mobility: RW Barriers to Discharge: Decreased mobility and ability to perform self care, balance deficits, weakness Estimated Length of Stay: 1014 days Discharge Destination: Home with family
[2019-02-09 15:32] LABS: Hematocrit 26.6 % (30.3-42.9); Hemoglobin 8.3 gm/dl (10.1-14.3); Mean Corpuscular HGB Conc 31 % (30-34); Mean Corpuscular Volume 80 fl (79-97); Platelet Count 136 K/mm3 (140-440); Red Blood Count 3.34 M/mm3 (3.65-5.03); Red Cell Distribution Width 22.4 % (13.2-15.2)
[2019-02-09 15:50] LABS: BUN/Creatinine Ratio 52; Blood Urea Nitrogen 26 mg/dL (7-17); Calcium 8.2 mg/dL (8.4-10.2); Hemolysis Index 8
[2019-02-09 16:33] LABS: Heparin-Induced Platelet Antib Negative (Negative); Unfractionated Heparin Negative (Negative)
[2019-02-09] MEDS: MELATONIN PO SCH (21:32)
[2019-02-09] MEDS: LANTUS SUB-Q SCH (21:33)
--- NOTE | 2019-02-09 23:18 | Progress Note ---
Assessment and Plan - Patient Problems (1) Abdominal pain Current Visit: No Status: Acute Qualifiers: Abdominal location: generalized Qualified Code(s): R10.84 - Generalized abdominal pain Plan to address problem: pain control. (2) Anal wart Current Visit: No Status: Acute Plan to address problem: local tx, or ID eval. (3) Atrial flutter Current Visit: No Status: Acute Plan to address problem: follow cardiology. (4) Congestive cardiomyopathy Current Visit: No Status: Acute Plan to address problem: follow cardiology. (5) DVT prophylaxis Current Visit: No Status: Acute Plan to address problem: continue as current. (6) Anemia Current Visit: Yes Status: Acute Plan to address problem: See notes section. stable. (7) Thrombocytopenia Current Visit: Yes Status: Acute Plan to address problem: see notes section. probably infection in the wound related, vs nutrition, iron is low, B12 low end of NL. other etiology, is the vancomycin. Subjective Date of service: 02/09/19 Principal diagnosis: Left BKA, debility Interval history: patient seen/examined, resting in bed, NAD, labs reviewed.PLT dropped by additional 2K., still no bleeding. patient seen/examined, resting in bed, records reviewed. No new issues at this time. Patient seen/examined, resting in bed, labs reviewed, case d/w patient Patient seen/examined, resting in bed labs reviewed, case d/w patient. Will continue to follow you. Objective - Constitutional Vitals: Vital Signs - 12hr 02/09/19 02/09/19 02/09/19 15:06 15:58 16:30 Temperature 99.5 F 98.0 F Pulse Rate 131 H 90 Pulse Rate [ Posterior Bilateral Throughout] Respiratory 24 24 20 Rate Respiratory Rate [Left Leg] Respiratory Rate [Posterior Bilateral Throughout] Blood Pressure Blood Pressure 144/99 113/57 [Right] O2 Sat by Pulse 71 L 98 Oximetry 02/09/19 02/09/19 02/09/19 19:50 20:39 20:40 Temperature Pulse Rate Pulse Rate [ 89 Posterior Bilateral Throughout] Respiratory 18 Rate Respiratory Rate [Left Leg] Respiratory 19 Rate [Posterior Bilateral Throughout] Blood Pressure Blood Pressure [Right] O2 Sat by Pulse 98 Oximetry 02/09/19 02/09/19 20:46 21:22 Temperature 97.6 F Pulse Rate 127 H Pulse Rate [ Posterior Bilateral Throughout] Respiratory 18 Rate Respiratory 20 Rate [Left Leg] Respiratory Rate [Posterior Bilateral Throughout] Blood Pressure 104/62 Blood Pressure [Right] O2 Sat by Pulse 99 Oximetry General appearance: Present: mild distress, well-nourished - EENT Eyes: PERRL, EOM intact ENT: hearing intact, clear oral mucosa Ears: bilateral: normal - Neck Neck: supple, normal ROM - Respiratory Respiratory effort: normal Respiratory: bilateral: CTA - Breasts Breasts: deferred - Cardiovascular Rhythm: regular Heart Sounds: Present: S1 & S2. Absent: gallop, rub Extremities: pulses intact, No edema, normal color, Full ROM - Gastrointestinal General gastrointestinal: Present: soft, non-tender, non-distended, normal bowel sounds Rectal Exam: deferred - Genitourinary Female genitourinary: deferred - Integumentary Integumentary: clear, warm, dry - Musculoskeletal Musculoskeletal: 1, strength equal bilaterally - Neurologic Neurologic: moves all extremities - Psychiatric Psychiatric: memory intact, appropriate mood/affect, intact judgment & insight - Labs CBC & Chem 7: 02/09/19 15:21 02/09/19 15:21 Labs: Abnormal lab results 02/09/19 02/09/19 02/09/19 Range/Units 07:55 15:09 15:21 RBC 3.34 L (3.65-5.03) M/mm3 Hgb 8.3 L (10.1-14.3) gm/dl Hct 26.6 L (30.3-42.9) % MCH 25 L (28-32) pg RDW 22.4 H (13.2-15.2) % Plt Count 136 L (140-440) K/mm3 BUN (7-17) mg/dL Creatinine (0.7-1.2) mg/dL Glucose (65-100) mg/dL POC Glucose 137 H 123 H (70-105) Calcium (8.4-10.2) mg/dL 02/09/19 02/09/19 02/09/19 Range/Units 15:21 17:42 21:13 RBC (3.65-5.03) M/mm3 Hgb (10.1-14.3) gm/dl Hct (30.3-42.9) % MCH (28-32) pg RDW (13.2-15.2) % Plt Count (140-440) K/mm3 BUN 26 H (7-17) mg/dL Creatinine 0.5 L (0.7-1.2) mg/dL Glucose 108 H (65-100) mg/dL POC Glucose 119 H 132 H (70-105) Calcium 8.2 L (8.4-10.2) mg/dL
[2019-02-10] MEDS: NEURONTIN PO SCH ×4 (05:36→23:31)
[2019-02-10] MEDS: PERCOCET 5/325 PO PRN ×5 (05:36→23:30)
[2019-02-10] MEDS: LASIX PO SCH ×2 (06:39→19:41)
[2019-02-10] MEDS: DUONEB *Not for PRN Use IH SCH ×2 (07:30→14:40)
[2019-02-10] MEDS: HumaLOG SUB-Q SCH ×4 (07:35→22:10)
--- NOTE | 2019-02-10 07:48 | Progress Note ---
Subjective Date of service: 02/10/19 Principal diagnosis: Left BKA, debility Interval history: 58-year-old female with recent history of a left BKA revision started to develop extreme pain in the legs and buttocks along with tachycardia. At the ER she was found to have atrial fibrillation with RVR. Her reports she was supposed to be on amiodarone was apparently noncompliant with this. She was started on amiodarone drip. She developed an acute mental status change but workup was negative for any acute changes. She is transferred to the ICU placed on BiPAP with some improvements noted. She developed MRSA bacteremia and was started on vancomycin. On 01/21 she was noted to have a right brachial DVT and was placed on a heparin drip. This was not seen in paperwork that we reviewed prior to admission and she was not transferred on any anticoagulation. There was mention under atrial fibrillation that she was not a good candidate for anticoagulation, however with both atrial fibrillation and a DVT she is at a higher risk for an embolic event. Discussed with the patient risks and benefits and have started her on Eliquis. She continued to have persistent respiratory issues with w heezing and shortness of breath. She was started on Entresto along with IV steroids and is now on oral steroid wean. Patient is participating in therapy and making progress. Taking rest breaks as needed. +BM. Denies palpitations, N/V, diarrhea. . BP improved. Tachycardic in the high 120s. Will talk to cardiology about options for better rate control. Legs weeping, awaiting lymphedema wrapping for legs. Discussed plan with patient. Continue to monitor. Cont to monitor for improvement in plts. All records, vitals, labs and medications were reviewed. No other issues per patient, nursing or therapy. Objective - Exam Narrative Exam: MUSCULOSKELETAL SPECIALTY EXAM CONSTITUTIONAL: Well developed, well nourished, appropriately groomed, obese EENT: EOMI. Hearing intact to soft voice RESPIRATORY: CTA bilaterally, slightly better, no increased work of breathing, on nasal cannula CARDIOVASCULAR: Regular Rhythm, tachycardic, no tenderness in BUE or BLE. 3+ pitting edema in BLE, with weeping today. All extremities warm. No bleeding noted today GI: + bowel sounds, soft, NTTP, nondistended, protuberant INTEGUMENTARY: Widespread bruising, sores, and lesions, no rash or masses noted in extremities. Redness on sacral area, not pressure wound. Warty growth in juancho area MUSCULOSKELETAL: BUE and BLE normal without defect, crepitus, subluxation, effusion, arthritic changes or TTP except for Left BKA and right toe amputations as noted. BUE 4/5, good ROM, with normal tone. BLE 3/5 decreased ROM, with normal tone NEURO: CN 2-12 grossly intact. Sensation intact but altered in all extremities. No tremor noted in 4 extremities. POSTURE and GAIT: Sitting posture and fair. Balance appears poor. Standing balance is poor. PSYCH: Alert, oriented x3, affect appears anxious. Insight appears intact. - Constitutional Vitals: Vital Signs - 12hr 02/09/19 02/09/19 02/09/19 19:50 20:39 20:40 Temperature Pulse Rate Pulse Rate [ Apical] Pulse Rate [ 89 Posterior Bilateral Throughout] Respiratory 18 Rate Respiratory Rate [Left Leg] Respiratory 19 Rate [Posterior Bilateral Throughout] Blood Pressure Blood Pressure [Right] O2 Sat by Pulse 98 Oximetry 02/09/19 02/09/19 02/09/19 20:46 21:22 22:00 Temperature 36.4 C Pulse Rate 127 H Pulse Rate [ 121 H Apical] Pulse Rate [ Posterior Bilateral Throughout] Respiratory 18 Rate Respiratory 20 Rate [Left Leg] Respiratory Rate [Posterior Bilateral Throughout] Blood Pressure 104/62 Blood Pressure [Right] O2 Sat by Pulse 99 Oximetry 02/09/19 02/10/19 02/10/19 23:17 00:17 05:21 Temperature 36.9 C Pulse Rate 128 H Pulse Rate [ Apical] Pulse Rate [ Posterior Bilateral Throughout] Respiratory 18 18 20 Rate Respiratory Rate [Left Leg] Respiratory Rate [Posterior Bilateral Throughout] Blood Pressure Blood Pressure 99/54 [Right] O2 Sat by Pulse 94 Oximetry 02/10/19 02/10/19 02/10/19 05:36 06:40 07:31 Temperature Pulse Rate 129 H Pulse Rate [ Apical] Pulse Rate [ 85 Posterior Bilateral Throughout] Respiratory 18 Rate Respiratory Rate [Left Leg] Respiratory 18 Rate [Posterior Bilateral Throughout] Blood Pressure Blood Pressure 131/68 [Right] O2 Sat by Pulse 95 Oximetry 02/10/19 07:32 Temperature Pulse Rate Pulse Rate [ Apical] Pulse Rate [ Posterior Bilateral Throughout] Respiratory Rate Respiratory Rate [Left Leg] Respiratory Rate [Posterior Bilateral Throughout] Blood Pressure Blood Pressure [Right] O2 Sat by Pulse 96 Oximetry - Allied health notes Allied health notes reviewed: nursing, PT, OT FIMS assessment as documented by PT/OT/ST: Grooming Patient cleans teeth/dentures: Yes Patient epperson/brushes hair: Yes Patient washes, rinses and Yes dries face: Patient washes, rinses and Yes dries hands: Patient shaves: No Patient applies make-up: No Patient performs (no make-up/ 10/02 (100%) shaving): Grooming FIM Score 4. Minimal Assistance (Patient = 75% or more. Needs touching.) Social interaction/Memory/Problem solving Social Interaction FIM Score 7. Complete [place] (Interacts appropriately. Controls temper.) Memory FIM Score 7. Complete [place] (Remembers people and routines.) Problem Solving FIM Score 5. Supervision (Needs cueing <10% to solve routine problems.) Transfers Mode of Locomotion: Wheelchair Bed/Chair/Wheelchair Transfers 1. Total Assistance (Patient less than 25%. 2 or FIM Score more persons.) Locomotion- Stairs Stairs FIM Score 0. Activity does not occur Locomotion- walk/wheelchair Most Frequent Mode of Wheelchair Locomotion: Ambulation Distance 0 Walking FIM Score 0. Activity does not occur Wheelchair Propulsion Distance 197 Wheelchair FIM Score 4. Minimal Assistance (Patient = 75% or more. Minimum of 150 ft.) Eating Eating FIM Score 5. Supervision/Set-Up (Needs help w/ containers, cutting meat, etc.) Dressing-Upper body Patient retrieves clothing No items: Patient applies/removes UE No prosthesis or orthosis: Upper Body Dressing FIM Score 4. Minimal Assistance (Patient = 75% or more. Needs touching.) Dressing-lower body Lower Body Dressing Device Lobby Concierge/Stick,Sock Aid Patient retrieves clothing No items: Patient applies/removes LE N/A prosthesis or orthosis: Lower Body Dressing FIM Score 3. Moderate Assistance (Patient = 50% or more) - Labs CBC & Chem 7: 02/09/19 15:21 02/09/19 15:21 Labs: Laboratory Results - last 72 hr 02/06/19 02/07/19 02/07/19 06:10 07:50 11:48 WBC RBC Hgb Hct MCV MCH MCHC RDW Plt Count Heparin Anti-Xa, Unfract Negative Sodium Potassium Chloride Carbon Dioxide Anion Gap BUN Creatinine Estimated GFR BUN/Creatinine Ratio Glucose POC Glucose 87 96 Calcium Heparin-induced Plt Ab Negative UF Heparin High Dose 0 KRISTEN UFH Low Dose 0.1 0 KRISTEN UFH Low Dose 0.5 0 02/07/19 02/07/19 02/08/19 16:07 22:02 07:09 WBC RBC Hgb Hct MCV MCH MCHC RDW Plt Count Heparin Anti-Xa, Unfract Sodium Potassium Chloride Carbon Dioxide Anion Gap BUN Creatinine Estimated GFR BUN/Creatinine Ratio Glucose POC Glucose 159 H 235 H 178 H Calcium Heparin-induced Plt Ab UF Heparin High Dose KRISTEN UFH Low Dose 0.1 KRISTEN UFH Low Dose 0.5 02/08/19 02/08/19 02/08/19 11:42 16:41 21:00 WBC RBC Hgb Hct MCV MCH MCHC RDW Plt Count Heparin Anti-Xa, Unfract Sodium Potassium Chloride Carbon Dioxide Anion Gap BUN Creatinine Estimated GFR BUN/Creatinine Ratio Glucose POC Glucose 108 H 163 H 152 H Calcium Heparin-induced Plt Ab UF Heparin High Dose KRISTEN UFH Low Dose 0.1 KRISTEN UFH Low Dose 0.5 02/09/19 02/09/19 02/09/19 07:55 15:09 15:21 WBC 6.6 RBC 3.34 L Hgb 8.3 L Hct 26.6 L MCV 80 MCH 25 L MCHC 31 RDW 22.4 H Plt Count 136 L Heparin Anti-Xa, Unfract Sodium Potassium Chloride Carbon Dioxide Anion Gap BUN Creatinine Estimated GFR BUN/Creatinine Ratio Glucose POC Glucose 137 H 123 H Calcium Heparin-induced Plt Ab UF Heparin High Dose KRISTEN UFH Low Dose 0.1 KRISTEN UFH Low Dose 0.5 02/09/19 02/09/19 02/09/19 15:21 17:42 21:13 WBC RBC Hgb Hct MCV MCH MCHC RDW Plt Count Heparin Anti-Xa, Unfract Sodium 140 Potassium 4.4 Chloride 99.2 Carbon Dioxide 27 Anion Gap 18 BUN 26 H Creatinine 0.5 L Estimated GFR > 60 BUN/Creatinine Ratio 52 Glucose 108 H POC Glucose 119 H 132 H Calcium 8.2 L Heparin-induced Plt Ab UF Heparin High Dose KRISTEN UFH Low Dose 0.1 KRISTEN UFH Low Dose 0.5 02/10/19 07:46 WBC RBC Hgb Hct MCV MCH MCHC RDW Plt Count Heparin Anti-Xa, Unfract Sodium Potassium Chloride Carbon Dioxide Anion Gap BUN Creatinine Estimated GFR BUN/Creatinine Ratio Glucose POC Glucose 97 Calcium Heparin-induced Plt Ab UF Heparin High Dose KRISTEN UFH Low Dose 0.1 KRISTEN UFH Low Dose 0.5 Assessment and Plan Left BKA: Continue supportive care. We'll continue to work with therapy on transfers in order to facilitate safe transition home. At this point based on the patient's comorbidities it does not appear that she will be a good candidate for a prosthesis. We will likely discharge home at wheelchair level. Atrial fibrillation: Need to improve rate control. Tachycardic 120s. Eliquis for anticoagulation. Cardiology consult. COPD: Continue respiratory support with prednisone and inhalers. DuoNeb. Respiratory therapy eval and nasal cannula for oxygen. CHF: Continue diuresis, monitor renal function, continue Entresto - consult Paul. Heart. Hypertension: Continue medications and adjust as needed, improving currently. Diabetes, poorly controlled: Continue controlled carb diet, continue insulin monitor and adjust as needed Coronary artery disease: ASA and plavix d/c'd due to thrombocytopenia and minor bleeding. Monitor for any signs of bleeding. Monitor for any chest pain or cardiac symptoms. Peripheral vascular disease: monitor for any signs of bleeding. Monitor H&H. Off antiplatelets due to thrombocytopenia DVT R brachial vein: Discussed risk and benefits with patient, confirmed with Doppler, started Eliquis. Monitor for any signs of bleeding. Hgb stable Morbid obesity: Discussed weight loss, lifestyle change, dietary modification Suspected pneumonia: Completed Levaquin. Short course mucomyst MRSA bacteremia: Completed vancomycin. D/C isolation. Last blood culture was negative Anxiety/depression: continue Xanax and Paxil Skin: continue juancho-care Right shoulder pain: Chronic in nature. Speed's POS. Voltaren gel, modalities. Pain improved Z73.6 ADL dysfunction: OT will work on improving ability to perform ADLs (including assistive devices) to increase independence and decrease caregiver burden and improve functional transfers and mobility training. R26.2 Difficulty walking: PT will work on gait training and proper use of assistive devices and advance as appropriate to use of stairs and outside ambulation on uneven surfaces. R26.81 Unsteadiness on feet: PT will work on improving static and dynamic sitting and standing balance as well as proper use of assistive devices to decrease risk of falls. R26.89 Abnormality of gait: PT will work to improve safety and efficiency of gait through neuromotor training and gait training along with instruction on proper use of assistive devices. M62.81 Muscle weakness: PT & OT will work on strengthening exercises to improve functional strength including mixture of closed and open kinetic chain exercises. R53.81 Debility: PT & OT will work on improving overall functional status to improve participation with ADLs, mobility and social involvement. R53.83 Fatigue: PT & OT will work on improving endurance through aerobic exercises and therapeutic activity while monitoring patients tolerance for activity and vital signs as needed. DVT ppx: Started on Eliquis for RUE DVT Pain: Continue physical modalities in therapy and pain medications as needed to achieve functional pain control. Patient remains on Percocet for chronic pain Sleep: Monitor and address as needed. Melatonin Bowel: Monitor and address as needed. Appetite: Monitor and address as needed. Discharge planning: Pending therapy progress and care plan meeting. Will continue discussion with therapy team, SW, patient and family. Plan for 02/19 d/c Restrictions/ Precautions: Falls, cardiac WB status: FWB Functional Hx: ADLs: Needed assistance Cognition: Ind Mobility: RW Barriers to Discharge: Decreased mobility and ability to perform self care, balance deficits, weakness Estimated Length of Stay: 1014 days Discharge Destination: Home with family
[2019-02-10] MEDS: XANAX PO PRN ×2 (09:25→22:23)
[2019-02-10] MEDS: ENTRESTO 24 - 26 MG PO SCH ×2 (09:27→22:01)
[2019-02-10] MEDS: ZINC SULFATE PO SCH ×2 (09:27→22:01)
[2019-02-10] MEDS: VITAMIN C PO SCH ×2 (09:28→22:01)
[2019-02-10] MEDS: TOPROL XL PO SCH (09:28)
[2019-02-10] MEDS: THERAGRAN-M Tab PO SCH (09:28)
[2019-02-10] MEDS: PAXIL PO SCH (09:28)
[2019-02-10] MEDS: DELTASONE PO SCH (09:30)
[2019-02-10] MEDS: CORDARONE PO SCH ×2 (09:32→22:05)
[2019-02-10] MEDS: DICLOFENAC 1% TP SCH ×3 (09:33→22:08)
--- NOTE | 2019-02-10 10:08 | Progress Note ---
Assessment and Plan - Patient Problems (1) Abdominal pain Current Visit: No Status: Acute Qualifiers: Abdominal location: generalized Qualified Code(s): R10.84 - Generalized abdominal pain Plan to address problem: pain control. (2) Anal wart Current Visit: No Status: Acute Plan to address problem: local tx, or ID eval. (3) Atrial flutter Current Visit: No Status: Acute Plan to address problem: follow cardiology. (4) Congestive cardiomyopathy Current Visit: No Status: Acute Plan to address problem: follow cardiology. (5) DVT prophylaxis Current Visit: No Status: Acute Plan to address problem: continue as current. (6) Anemia Current Visit: Yes Status: Acute Plan to address problem: See notes section. stable. (7) Thrombocytopenia Current Visit: Yes Status: Acute Plan to address problem: see notes section. probably infection in the wound related, vs nutrition, iron is low, B12 low end of NL. other etiology, is the vancomycin. Subjective Date of service: 02/10/19 Principal diagnosis: Left BKA, debility Interval history: patient seen/examined, resting in bed, NAD, labs reviewed.PLT dropped by additional 2K., still no bleeding. patient seen/examined, resting in bed, records reviewed. No new issues at this time. Patient seen/examined, resting in bed, labs reviewed, case d/w patient Patient seen/examined, resting in bed labs reviewed, case d/w patient. Will continue to follow you. patient seen, resting in bed, lates labs reviewed.No new issues at this time. Objective - Constitutional Vitals: Vital Signs - 12hr 02/09/19 02/10/19 02/10/19 23:17 00:17 05:21 Temperature 98.4 F Pulse Rate 128 H Pulse Rate [ Posterior Bilateral Throughout] Respiratory 18 18 20 Rate Respiratory Rate [Posterior Bilateral Throughout] Blood Pressure 99/54 [Right] O2 Sat by Pulse 94 Oximetry 02/10/19 02/10/19 02/10/19 05:36 06:40 07:00 Temperature 98 F Pulse Rate 129 H 127 H Pulse Rate [ Posterior Bilateral Throughout] Respiratory 18 22 Rate Respiratory Rate [Posterior Bilateral Throughout] Blood Pressure 131/68 117/66 [Right] O2 Sat by Pulse 96 Oximetry 02/10/19 02/10/19 07:31 07:32 Temperature Pulse Rate Pulse Rate [ 85 Posterior Bilateral Throughout] Respiratory Rate Respiratory 18 Rate [Posterior Bilateral Throughout] Blood Pressure [Right] O2 Sat by Pulse 95 96 Oximetry General appearance: Present: mild distress, well-nourished - EENT Eyes: PERRL, EOM intact ENT: hearing intact, clear oral mucosa Ears: bilateral: normal - Neck Neck: supple, normal ROM - Respiratory Respiratory effort: normal Respiratory: bilateral: wheezing - Breasts Breasts: deferred - Cardiovascular Rhythm: regular Heart Sounds: Present: S1 & S2. Absent: gallop, rub Extremities: pulses intact, No edema, normal color, Full ROM - Gastrointestinal General gastrointestinal: Present: soft, non-tender, non-distended, normal bowel sounds Rectal Exam: deferred - Genitourinary Female genitourinary: deferred - Integumentary Integumentary: clear, warm, dry - Musculoskeletal Musculoskeletal: 1, strength equal bilaterally - Neurologic Neurologic: moves all extremities - Psychiatric Psychiatric: memory intact, appropriate mood/affect, intact judgment & insight - Labs CBC & Chem 7: 02/09/19 15:21 02/09/19 15:21 Labs: Abnormal lab results 02/09/19 02/09/19 02/09/19 Range/Units 15:09 15:21 15:21 RBC 3.34 L (3.65-5.03) M/mm3 Hgb 8.3 L (10.1-14.3) gm/dl Hct 26.6 L (30.3-42.9) % MCH 25 L (28-32) pg RDW 22.4 H (13.2-15.2) % Plt Count 136 L (140-440) K/mm3 BUN 26 H (7-17) mg/dL Creatinine 0.5 L (0.7-1.2) mg/dL Glucose 108 H (65-100) mg/dL POC Glucose 123 H (70-105) Calcium 8.2 L (8.4-10.2) mg/dL 02/09/19 02/09/19 Range/Units 17:42 21:13 RBC (3.65-5.03) M/mm3 Hgb (10.1-14.3) gm/dl Hct (30.3-42.9) % MCH (28-32) pg RDW (13.2-15.2) % Plt Count (140-440) K/mm3 BUN (7-17) mg/dL Creatinine (0.7-1.2) mg/dL Glucose (65-100) mg/dL POC Glucose 119 H 132 H (70-105) Calcium (8.4-10.2) mg/dL
--- NOTE | 2019-02-10 11:08 | Progress Note ---
Assessment and Plan s/p left BKA Thrombocytopenia Permanent Atrial fib/flutter on metoprolol and amiodarone for rate control on eliquis for oral anticoagulation therapy. Ischemic cardiomyopathy with EF 30-35% CAD s/p 3v CABG in 2014 Cor Pulmonale COPD Tobacco abuse Htn DM PAD Chronic non-compliance with medical therapy and medical follow up Conservative cardiac management. Subjective Date of service: 02/10/19 Principal diagnosis: Left BKA, debility Interval history: PT is at the bedside. No cardiac complaints. Objective Vital Signs Temp Pulse Pulse Pulse Resp Resp Resp 02/10/19 07:32 02/10/19 07:31 85 18 02/10/19 07:00 98 F 127 H 22 02/10/19 06:40 129 H 02/10/19 05:36 18 02/10/19 05:21 98.4 F 128 H 20 02/10/19 00:17 18 02/09/19 23:17 18 02/09/19 22:00 121 H 02/09/19 21:22 20 02/09/19 20:46 97.6 F 127 H 18 02/09/19 20:40 02/09/19 20:39 89 19 02/09/19 19:50 18 02/09/19 16:30 98.0 F 90 20 02/09/19 15:58 24 02/09/19 15:06 99.5 F 131 H 24 BP BP Pulse Ox 02/10/19 07:32 96 02/10/19 07:31 95 02/10/19 07:00 117/66 96 02/10/19 06:40 131/68 02/10/19 05:36 02/10/19 05:21 99/54 94 02/10/19 00:17 02/09/19 23:17 02/09/19 22:00 02/09/19 21:22 02/09/19 20:46 104/62 99 02/09/19 20:40 98 02/09/19 20:39 02/09/19 19:50 02/09/19 16:30 113/57 98 02/09/19 15:58 02/09/19 15:06 144/99 71 L - Physical Examination General: No Apparent Distress, Other (obese) HEENT: Positive: PERRL Neck: Positive: trachea midline Cardiac: Positive: irregularly irregular Lungs: Positive: Decreased Breath Sounds Neuro: Positive: Grossly Intact Extremities: Present: Other (left BKA) - Labs and Meds CBC 02/09/19 Range/Units 15:21 WBC 6.6 (4.5-11.0) K/mm3 RBC 3.34 L (3.65-5.03) M/mm3 Hgb 8.3 L (10.1-14.3) gm/dl Hct 26.6 L (30.3-42.9) % Plt Count 136 L (140-440) K/mm3 Comprehensive Metabolic Panel 02/09/19 Range/Units 15:21 Sodium 140 (137-145) mmol/L Potassium 4.4 (3.6-5.0) mmol/L Chloride 99.2 (98-107) mmol/L Carbon Dioxide 27 (22-30) mmol/L BUN 26 H (7-17) mg/dL Creatinine 0.5 L (0.7-1.2) mg/dL Glucose 108 H (65-100) mg/dL Calcium 8.2 L (8.4-10.2) mg/dL
[2019-02-10] MEDS: SPIRIVA IH SCH (11:55)
[2019-02-10] MEDS: ELIQUIS PO SCH ×2 (12:00→22:02)
[2019-02-10] MEDS: MELATONIN PO SCH (22:02)
[2019-02-10] MEDS: LANTUS SUB-Q SCH (22:06)
[2019-02-11] MEDS: PERCOCET 5/325 PO PRN ×5 (04:21→23:48)
[2019-02-11] MEDS: LASIX PO SCH ×2 (05:58→18:39)
[2019-02-11] MEDS: NEURONTIN PO SCH ×4 (05:58→23:49)
[2019-02-11 07:37] LABS: Hematocrit 29.2 % (30.3-42.9); Mean Corpuscular HGB Conc 31 % (30-34); Mean Corpuscular Volume 78 fl (79-97); Platelet Count 145 K/mm3 (140-440); Red Blood Count 3.75 M/mm3 (3.65-5.03)
[2019-02-11 07:46] LABS: Red Cell Distribution Width 22.8 % (13.2-15.2)
[2019-02-11 07:49] LABS: BUN/Creatinine Ratio 50; Blood Urea Nitrogen 25 mg/dL (7-17); Calcium 8.8 mg/dL (8.4-10.2); Hemolysis Index 0
[2019-02-11] MEDS: DUONEB *Not for PRN Use IH SCH ×3 (07:59→13:50)
--- NOTE | 2019-02-11 08:34 | Progress Note ---
Subjective Date of service: 02/11/19 Principal diagnosis: Left BKA, debility Interval history: 58-year-old female with recent history of a left BKA revision started to develop extreme pain in the legs and buttocks along with tachycardia. At the ER she was found to have atrial fibrillation with RVR. Her reports she was supposed to be on amiodarone was apparently noncompliant with this. She was started on amiodarone drip. She developed an acute mental status change but workup was negative for any acute changes. She is transferred to the ICU placed on BiPAP with some improvements noted. She developed MRSA bacteremia and was started on vancomycin. On 01/21 she was noted to have a right brachial DVT and was placed on a heparin drip. This was not seen in paperwork that we reviewed prior to admission and she was not transferred on any anticoagulation. There was mention under atrial fibrillation that she was not a good candidate for anticoagulation, however with both atrial fibrillation and a DVT she is at a higher risk for an embolic event. Discussed with the patient risks and benefits and have started her on Eliquis. She continued to have persistent respiratory issues with w heezing and shortness of breath. She was started on Entresto along with IV steroids and is now on oral steroid wean. Patient is participating in therapy and making progress. Taking rest breaks as needed. +BM. Denies palpitations, N/V, diarrhea. . BP improved. Tachycardic in the high 120s. Spoke with cardiology about options for better rate control. Legs weeping, awaiting lymphedema wrapping for legs. Discussed plan with patient. Continue to monitor. Cont to monitor for improvement in plts. All records, vitals, labs and medications were reviewed. No other issues per patient, nursing or therapy. Objective - Exam Narrative Exam: MUSCULOSKELETAL SPECIALTY EXAM CONSTITUTIONAL: Well developed, well nourished, appropriately groomed, obese EENT: EOMI. Hearing intact to soft voice RESPIRATORY: CTA bilaterally, slightly better, no increased work of breathing, on nasal cannula CARDIOVASCULAR: Regular Rhythm, tachycardic, no tenderness in BUE or BLE. 3+ pitting edema in BLE, with weeping today. All extremities warm. No bleeding noted today GI: + bowel sounds, soft, NTTP, nondistended, protuberant INTEGUMENTARY: Widespread bruising, sores, and lesions, no rash or masses noted in extremities. Redness on sacral area, not pressure wound. Warty growth in juancho area MUSCULOSKELETAL: BUE and BLE normal without defect, crepitus, subluxation, effusion, arthritic changes or TTP except for Left BKA and right toe amputations as noted. BUE 4/5, good ROM, with normal tone. BLE 3/5 decreased ROM, with normal tone NEURO: CN 2-12 grossly intact. Sensation intact but altered in all extremities. No tremor noted in 4 extremities. POSTURE and GAIT: Sitting posture and fair. Balance appears poor. Standing balance is poor. PSYCH: Alert, oriented x3, affect appears anxious. Insight appears intact. - Constitutional Vitals: Vital Signs - 12hr 02/10/19 02/10/19 21:49 22:36 Temperature 36.2 C L Pulse Rate 126 H Respiratory 19 19 Rate Blood Pressure 120/69 [Right] O2 Sat by Pulse 95 95 Oximetry - Allied health notes Allied health notes reviewed: nursing, PT, OT FIMS assessment as documented by PT/OT/ST: Grooming Patient cleans teeth/dentures: Yes Patient epperson/brushes hair: Yes Patient washes, rinses and Yes dries face: Patient washes, rinses and Yes dries hands: Patient shaves: No Patient applies make-up: No Patient performs (no make-up/ / (100%) shaving): Grooming FIM Score 4. Minimal Assistance (Patient = 75% or more. Needs touching.) Social interaction/Memory/Problem solving Social Interaction FIM Score 5. Supervision (Needs supv. <10%. Needs encouragement to participate.) Memory FIM Score 6. Modified [place](Mild difficulty remembering people/routines.) Problem Solving FIM Score 5. Supervision (Needs cueing <10% to solve routine problems.) Transfers Mode of Locomotion: Wheelchair Bed/Chair/Wheelchair Transfers 1. Total Assistance (Patient less than 25%. 2 or FIM Score more persons.) Locomotion- Stairs Stairs FIM Score 0. Activity does not occur Locomotion- walk/wheelchair Most Frequent Mode of Wheelchair Locomotion: Ambulation Distance 0 Walking FIM Score 0. Activity does not occur Wheelchair Propulsion Distance 197 Wheelchair FIM Score 4. Minimal Assistance (Patient = 75% or more. Minimum of 150 ft.) Eating Eating FIM Score 5. Supervision/Set-Up (Needs help w/ containers, cutting meat, etc.) Dressing-Upper body Patient retrieves clothing No items: Patient applies/removes UE No prosthesis or orthosis: Upper Body Dressing FIM Score 4. Minimal Assistance (Patient = 75% or more. Needs touching.) Dressing-lower body Lower Body Dressing Device Meat Stringer/Stick,Sock Aid Patient retrieves clothing No items: Patient applies/removes LE N/A prosthesis or orthosis: Lower Body Dressing FIM Score 3. Moderate Assistance (Patient = 50% or more) - Labs CBC & Chem 7: 02/13/19 06:38 02/13/19 06:38 Labs: Laboratory Results - last 72 hr 02/06/19 02/08/19 02/08/19 06:10 11:42 16:41 WBC RBC Hgb Hct MCV MCH MCHC RDW Plt Count Heparin Anti-Xa, Unfract Negative Sodium Potassium Chloride Carbon Dioxide Anion Gap BUN Creatinine Estimated GFR BUN/Creatinine Ratio Glucose POC Glucose 108 H 163 H Calcium Heparin-induced Plt Ab Negative UF Heparin High Dose 0 KRISTEN UFH Low Dose 0.1 0 KRISTEN UFH Low Dose 0.5 0 02/08/19 02/09/19 02/09/19 21:00 07:55 15:09 WBC RBC Hgb Hct MCV MCH MCHC RDW Plt Count Heparin Anti-Xa, Unfract Sodium Potassium Chloride Carbon Dioxide Anion Gap BUN Creatinine Estimated GFR BUN/Creatinine Ratio Glucose POC Glucose 152 H 137 H 123 H Calcium Heparin-induced Plt Ab UF Heparin High Dose KRISTEN UFH Low Dose 0.1 KRISTEN UFH Low Dose 0.5 02/09/19 02/09/19 02/09/19 15:21 15:21 17:42 WBC 6.6 RBC 3.34 L Hgb 8.3 L Hct 26.6 L MCV 80 MCH 25 L MCHC 31 RDW 22.4 H Plt Count 136 L Heparin Anti-Xa, Unfract Sodium 140 Potassium 4.4 Chloride 99.2 Carbon Dioxide 27 Anion Gap 18 BUN 26 H Creatinine 0.5 L Estimated GFR > 60 BUN/Creatinine Ratio 52 Glucose 108 H POC Glucose 119 H Calcium 8.2 L Heparin-induced Plt Ab UF Heparin High Dose KRISTEN UFH Low Dose 0.1 KRISTEN UFH Low Dose 0.5 02/09/19 02/10/19 02/10/19 21:13 07:46 12:04 WBC RBC Hgb Hct MCV MCH MCHC RDW Plt Count Heparin Anti-Xa, Unfract Sodium Potassium Chloride Carbon Dioxide Anion Gap BUN Creatinine Estimated GFR BUN/Creatinine Ratio Glucose POC Glucose 132 H 97 158 H Calcium Heparin-induced Plt Ab UF Heparin High Dose KRISTEN UFH Low Dose 0.1 KRISTEN UFH Low Dose 0.5 02/10/19 02/10/19 02/11/19 17:12 21:54 07:02 WBC 5.5 RBC 3.75 Hgb 9.0 L Hct 29.2 L MCV 78 L MCH 24 L MCHC 31 RDW 22.8 H Plt Count 145 Heparin Anti-Xa, Unfract Sodium Potassium Chloride Carbon Dioxide Anion Gap BUN Creatinine Estimated GFR BUN/Creatinine Ratio Glucose POC Glucose 181 H 146 H Calcium Heparin-induced Plt Ab UF Heparin High Dose KRISTEN UFH Low Dose 0.1 KRISTEN UFH Low Dose 0.5 02/11/19 07:02 WBC RBC Hgb Hct MCV MCH MCHC RDW Plt Count Heparin Anti-Xa, Unfract Sodium 139 Potassium 4.5 Chloride 96.8 L Carbon Dioxide 31 H Anion Gap 16 BUN 25 H Creatinine 0.5 L Estimated GFR > 60 BUN/Creatinine Ratio 50 Glucose 99 POC Glucose Calcium 8.8 Heparin-induced Plt Ab UF Heparin High Dose KRISTEN UFH Low Dose 0.1 KRISTEN UFH Low Dose 0.5 Assessment and Plan Left BKA: Continue supportive care. We'll continue to work with therapy on transfers in order to facilitate safe transition home. At this point based on the patient's comorbidities it does not appear that she will be a good candidate for a prosthesis. We will likely discharge home at wheelchair level. Atrial fibrillation: Need to improve rate control. Tachycardic 120s. Eliquis for anticoagulation. Cardiology consult. COPD: Continue respiratory support with prednisone and inhalers. DuoNeb. Respiratory therapy eval and nasal cannula for oxygen. CHF: Continue diuresis, monitor renal function, continue Entresto - consult Paul. Heart. Hypertension: Continue medications and adjust as needed, improving currently. Diabetes, poorly controlled: Continue controlled carb diet, continue insulin monitor and adjust as needed Coronary artery disease: ASA and plavix d/c'd due to thrombocytopenia and minor bleeding. Monitor for any signs of bleeding. Monitor for any chest pain or cardiac symptoms. Peripheral vascular disease: monitor for any signs of bleeding. Monitor H&H. Off antiplatelets due to thrombocytopenia DVT R brachial vein: Discussed risk and benefits with patient, confirmed with Doppler, started Eliquis. Monitor for any signs of bleeding. Hgb stable Morbid obesity: Discussed weight loss, lifestyle change, dietary modification Suspected pneumonia: Completed Levaquin. Short course mucomyst MRSA bacteremia: Completed vancomycin. D/C isolation. Last blood culture was negative Anxiety/depression: continue Xanax and Paxil Skin: continue juancho-care Right shoulder pain: Chronic in nature. Speed's POS. Voltaren gel, modalities. Pain improved Z73.6 ADL dysfunction: OT will work on improving ability to perform ADLs (includ ing assistive devices) to increase independence and decrease caregiver burden and improve functional transfers and mobility training. R26.2 Difficulty walking: PT will work on gait training and proper use of assistive devices and advance as appropriate to use of stairs and outside ambulation on uneven surfaces. R26.81 Unsteadiness on feet: PT will work on improving static and dynamic sitting and standing balance as well as proper use of assistive devices to decrease risk of falls. R26.89 Abnormality of gait: PT will work to improve safety and efficiency of gait through neuromotor training and gait training along with instruction on proper use of assistive devices. M62.81 Muscle weakness: PT & OT will work on strengthening exercises to improve functional strength including mixture of closed and open kinetic chain exercises. R53.81 Debility: PT & OT will work on improving overall functional status to improve participation with ADLs, mobility and social involvement. R53.83 Fatigue: PT & OT will work on improving endurance through aerobic exercises and therapeutic activity while monitoring patients tolerance for activity and vital signs as needed. DVT ppx: Started on Eliquis for RUE DVT Pain: Continue physical modalities in therapy and pain medications as needed to achieve functional pain control. Patient remains on Percocet for chronic pain Sleep: Monitor and address as needed. Melatonin Bowel: Monitor and address as needed. Appetite: Monitor and address as needed. Discharge planning: Pending therapy progress and care plan meeting. Will continue discussion with therapy team, SW, patient and family. Plan for 02/19 d/c Restrictions/ Precautions: Falls, cardiac WB status: FWB Functional Hx: ADLs: Needed assistance Cognition: Ind Mobility: RW Barriers to Discharge: Decreased mobility and ability to perform self care, balance deficits, weakness Estimated Length of Stay: 1014 days Discharge Destination: Home with family
[2019-02-11] MEDS: THERAGRAN-M Tab PO SCH (09:06)
[2019-02-11] MEDS: CORDARONE PO SCH ×2 (09:06→23:40)
[2019-02-11] MEDS: TOPROL XL PO SCH (09:07)
[2019-02-11] MEDS: ELIQUIS PO SCH ×2 (09:07→23:40)
[2019-02-11] MEDS: ZINC SULFATE PO SCH ×2 (09:07→23:37)
[2019-02-11] MEDS: ENTRESTO 24 - 26 MG PO SCH ×2 (09:07→23:50)
[2019-02-11] MEDS: VITAMIN D2 PO SCH (09:07)
[2019-02-11] MEDS: PAXIL PO SCH (09:08)
[2019-02-11] MEDS: VITAMIN C PO SCH ×2 (09:08→23:41)
[2019-02-11] MEDS: DICLOFENAC 1% TP SCH ×3 (09:09→23:43)
[2019-02-11] MEDS: HumaLOG SUB-Q SCH ×3 (09:12→17:41)
--- NOTE | 2019-02-11 10:54 | Progress Note ---
<MAMADOU ATKINS - Last Filed: 02/11/19 10:52> Assessment and Plan s/p left BKA Thrombocytopenia Permanent Atrial fib/flutter on metoprolol and amiodarone for rate control on eliquis for oral anticoagulation therapy. Ischemic cardiomyopathy with EF 30-35% CAD s/p 3v CABG in 2013 Cor Pulmonale COPD Tobacco abuse Htn DM PAD Chronic non-compliance with medical therapy and medical follow up Continue medical therapy for ischemic cardiomyopathy, coronary artery disease and chronic atrial fibrillation. We will add digoxin in addition to amiodarone and metoprolol for optimal rate control of Afib. Otherwise, conservative cardiac management. Subjective Date of service: 02/11/19 Principal diagnosis: Left BKA, debility Interval history: Patient is undergoing physical therapy. Objective Vital Signs Temp Pulse Pulse Resp Resp BP BP 02/10/19 22:36 19 02/10/19 21:49 97.2 F L 126 H 19 120/69 02/10/19 15:24 98.2 F 125 H 20 117/71 02/10/19 14:41 84 18 Pulse Ox 02/10/19 22:36 95 02/10/19 21:49 95 02/10/19 15:24 99 02/10/19 14:41 - Physical Examination General: No Apparent Distress, Other (obese) HEENT: Positive: PERRL Neck: Positive: trachea midline Cardiac: Positive: irregularly irregular Lungs: Positive: Decreased Breath Sounds Neuro: Positive: Grossly Intact Abdomen: Positive: Active Bowel Sounds Extremities: Present: Other (left BKA) - Labs and Meds CBC 02/11/19 Range/Units 07:02 WBC 5.5 (4.5-11.0) K/mm3 RBC 3.75 (3.65-5.03) M/mm3 Hgb 9.0 L (10.1-14.3) gm/dl Hct 29.2 L (30.3-42.9) % Plt Count 145 (140-440) K/mm3 Comprehensive Metabolic Panel 02/11/19 Range/Units 07:02 Sodium 139 (137-145) mmol/L Potassium 4.5 (3.6-5.0) mmol/L Chloride 96.8 L (98-107) mmol/L Carbon Dioxide 31 H (22-30) mmol/L BUN 25 H (7-17) mg/dL Creatinine 0.5 L (0.7-1.2) mg/dL Glucose 99 (65-100) mg/dL Calcium 8.8 (8.4-10.2) mg/dL <JANAE FRASER - Last Filed: 02/11/19 19:51> Assessment and Plan I have seen and evaluated the patient and agree with the assessment and plan. Continue current medical therapy for the treatment of ischemic cardiomyopathy with EF 30-35%, CAD s/p 3 vessel CABG, and chronic atrial fibrillation. Continue amidoarone and AV nick blockers for rate control of atrial fibrillation. Contine BB, ASA, statin and ACEi for treatment of ischemic cardiomyopathy. Objective Vital Signs Temp Pulse Pulse Pulse Pulse Pulse Resp 02/11/19 18:39 125 H 02/11/19 13:50 117 H 114 H 02/11/19 10:00 120 H 120 H 02/11/19 09:30 02/11/19 08:10 124 H 02/10/19 22:36 19 02/10/19 21:49 97.2 F L 126 H 19 Resp Resp BP BP Pulse Ox 02/11/19 18:39 121/66 02/11/19 13:50 18 17 02/11/19 10:00 96 02/11/19 09:30 98 02/11/19 08:10 18 02/10/19 22:36 95 02/10/19 21:49 120/69 95 - Labs and Meds CBC 02/11/19 Range/Units 07:02 WBC 5.5 (4.5-11.0) K/mm3 RBC 3.75 (3.65-5.03) M/mm3 Hgb 9.0 L (10.1-14.3) gm/dl Hct 29.2 L (30.3-42.9) % Plt Count 145 (140-440) K/mm3 Comprehensive Metabolic Panel 02/11/19 Range/Units 07:02 Sodium 139 (137-145) mmol/L Potassium 4.5 (3.6-5.0) mmol/L Chloride 96.8 L (98-107) mmol/L Carbon Dioxide 31 H (22-30) mmol/L BUN 25 H (7-17) mg/dL Creatinine 0.5 L (0.7-1.2) mg/dL Glucose 99 (65-100) mg/dL Calcium 8.8 (8.4-10.2) mg/dL
[2019-02-11] MEDS: SPIRIVA IH SCH (12:39)
[2019-02-11] MEDS: XANAX PO PRN (13:24)
[2019-02-11] MEDS: LANOXIN PO SCH (18:39)
--- NOTE | 2019-02-11 19:43 | Progress Note ---
Assessment and Plan - Patient Problems (1) Abdominal pain Current Visit: No Status: Acute Qualifiers: Abdominal location: generalized Qualified Code(s): R10.84 - Generalized abdominal pain Plan to address problem: pain control. (2) Anal wart Current Visit: No Status: Acute Plan to address problem: local tx, or ID eval. (3) Atrial flutter Current Visit: No Status: Acute Plan to address problem: follow cardiology. (4) Congestive cardiomyopathy Current Visit: No Status: Acute Plan to address problem: follow cardiology. (5) DVT prophylaxis Current Visit: No Status: Acute Plan to address problem: continue as current. (6) Anemia Current Visit: Yes Status: Acute Plan to address problem: See notes section. stable. (7) Thrombocytopenia Current Visit: Yes Status: Acute Plan to address problem: see notes section. probably infection in the wound related, vs nutrition, iron is low, B12 low end of NL. other etiology, is the vancomycin. Subjective Date of service: 02/11/19 Principal diagnosis: Left BKA, debility Interval history: patient seen/examined, resting in bed, NAD, labs reviewed.PLT dropped by additional 2K., still no bleeding. patient seen/examined, resting in bed, records reviewed. No new issues at this time. Patient seen/examined, resting in bed, labs reviewed, case d/w patient Patient seen/examined, resting in bed labs reviewed, case d/w patient. Will continue to follow you. patient seen, resting in bed, lates labs reviewed.No new issues at this time. Patient seen/examined, resting in bed, labs reviewed, Iron labs ordered. Objective - Constitutional Vitals: Vital Signs - 12hr 02/11/19 02/11/19 02/11/19 08:10 09:30 10:00 Pulse Rate Pulse Rate [ Anterior Bilateral Throughout] Pulse Rate [ 120 H Apical] Pulse Rate [ 120 H Left Radial] Pulse Rate [ 124 H Posterior Bilateral Throughout] Respiratory Rate [Anterior Bilateral Throughout] Respiratory 18 Rate [Posterior Bilateral Throughout] Blood Pressure O2 Sat by Pulse 98 96 Oximetry 02/11/19 02/11/19 13:50 18:39 Pulse Rate 125 H Pulse Rate [ 117 H Anterior Bilateral Throughout] Pulse Rate [ Apical] Pulse Rate [ Left Radial] Pulse Rate [ 114 H Posterior Bilateral Throughout] Respiratory 18 Rate [Anterior Bilateral Throughout] Respiratory 17 Rate [Posterior Bilateral Throughout] Blood Pressure 121/66 O2 Sat by Pulse Oximetry General appearance: Present: mild distress, well-nourished - EENT Eyes: PERRL, EOM intact ENT: hearing intact, clear oral mucosa Ears: bilateral: normal - Neck Neck: supple, normal ROM - Respiratory Respiratory effort: normal Respiratory: bilateral: CTA - Breasts Breasts: deferred - Cardiovascular Rhythm: regular Heart Sounds: Present: S1 & S2. Absent: gallop, rub Extremities: pulses intact, No edema, normal color, Full ROM - Gastrointestinal General gastrointestinal: Present: soft, non-tender, non-distended, normal bowel sounds Rectal Exam: deferred - Genitourinary Female genitourinary: deferred - Integumentary Integumentary: clear, warm, dry - Musculoskeletal Musculoskeletal: 1, strength equal bilaterally - Neurologic Neurologic: moves all extremities - Psychiatric Psychiatric: memory intact, appropriate mood/affect, intact judgment & insight - Labs CBC & Chem 7: 02/11/19 07:02 02/11/19 07:02 Labs: Abnormal lab results 02/10/19 02/11/19 02/11/19 Range/Units 21:54 07:02 07:02 Hgb 9.0 L (10.1-14.3) gm/dl Hct 29.2 L (30.3-42.9) % MCV 78 L (79-97) fl MCH 24 L (28-32) pg RDW 22.8 H (13.2-15.2) % Chloride 96.8 L (98-107) mmol/L Carbon Dioxide 31 H (22-30) mmol/L BUN 25 H (7-17) mg/dL Creatinine 0.5 L (0.7-1.2) mg/dL POC Glucose 146 H (70-105)
[2019-02-11] MEDS: LANTUS SUB-Q SCH (23:34)
[2019-02-11] MEDS: MELATONIN PO SCH (23:41)
[2019-02-12] MEDS: DUONEB *Not for PRN Use IH SCH ×4 (01:04→21:19)
[2019-02-12] MEDS: LASIX PO SCH ×2 (05:00→18:07)
[2019-02-12] MEDS: PERCOCET 5/325 PO PRN ×5 (05:00→21:58)
[2019-02-12] MEDS: NEURONTIN PO SCH ×3 (05:01→18:07)
[2019-02-12] MEDS: SPIRIVA IH SCH (08:43)
[2019-02-12] MEDS: ZINC SULFATE PO SCH ×2 (09:24→22:03)
[2019-02-12] MEDS: PAXIL PO SCH (09:25)
[2019-02-12] MEDS: ELIQUIS PO SCH ×2 (09:25→22:03)
[2019-02-12] MEDS: XANAX PO PRN ×2 (09:25→21:59)
[2019-02-12] MEDS: CORDARONE PO SCH ×2 (09:25→22:06)
[2019-02-12] MEDS: THERAGRAN-M Tab PO SCH (09:25)
[2019-02-12] MEDS: VITAMIN C PO SCH ×2 (09:25→22:04)
[2019-02-12] MEDS: DICLOFENAC 1% TP SCH ×3 (09:25→22:03)
[2019-02-12] MEDS: HumaLOG SUB-Q SCH ×5 (09:28→22:15)
[2019-02-12] MEDS: ENTRESTO 24 - 26 MG PO SCH ×2 (09:28→22:05)
--- NOTE | 2019-02-12 09:48 | Progress Note ---
Subjective Date of service: 02/12/19 Principal diagnosis: Left BKA, debility Interval history: 58-year-old female with recent history of a left BKA revision started to develop extreme pain in the legs and buttocks along with tachycardia. At the ER she was found to have atrial fibrillation with RVR. Her reports she was supposed to be on amiodarone was apparently noncompliant with this. She was started on amiodarone drip. She developed an acute mental status change but workup was negative for any acute changes. She is transferred to the ICU placed on BiPAP with some improvements noted. She developed MRSA bacteremia and was started on vancomycin. On 01/21 she was noted to have a right brachial DVT and was placed on a heparin drip. This was not seen in paperwork that we reviewed prior to admission and she was not transferred on any anticoagulation. There was mention under atrial fibrillation that she was not a good candidate for anticoagulation, however with both atrial fibrillation and a DVT she is at a higher risk for an embolic event. Discussed with the patient risks and benefits and have started her on Eliquis. She continued to have persistent respiratory issues with w heezing and shortness of breath. She was started on Entresto along with IV steroids and is now on oral steroid wean. Patient is participating in therapy and making progress. Taking rest breaks as needed. +BM. Denies palpitations, N/V, diarrhea. . BP improved. Tachycardic in the high 120s. Legs weeping, measured for lymphedema wrap for legs. Discussed plan with patient. Right knee pain, swollen, warm to touch. Looks c/w cellulitis - short course of keflex. Continue to monitor. Cont to monitor for improvement in plts. Discussed in Team Conference. STill giving lots of effort. Limited by endurance and strength. Will need 24 hr care at home at this point. Uncertain if family will be able to provide that level of care. May needs SNF. Will discuss. Unable to perform SB transfer, still dependent on ro[facility]. Look to d/c 02/19. All records, vitals, labs and medications were reviewed. No other issues per patient, nursing or therapy. Objective - Exam Narrative Exam: MUSCULOSKELETAL SPECIALTY EXAM CONSTITUTIONAL: Well developed, well nourished, appropriately groomed, obese EENT: EOMI. Hearing intact to soft voice RESPIRATORY: CTA bilaterally, slightly better, no increased work of breathing, on nasal cannula CARDIOVASCULAR: Regular Rhythm, tachycardic, no tenderness in BUE or BLE. 3+ pitting edema in BLE, with weeping today. All extremities warm. No bleeding noted today GI: + bowel sounds, soft, NTTP, nondistended, protuberant INTEGUMENTARY: Widespread bruising, sores, and lesions, no rash or masses noted in extremities. Redness on sacral area, not pressure wound. Warty growth in juancho area MUSCULOSKELETAL: Right knee swollen, warm and slightly TTP, otherwise BUE and BLE normal without defect, crepitus, subluxation, effusion, arthritic changes or TTP except for Left BKA and right toe amputations as noted. BUE 4/5, good ROM, with normal tone. BLE 3/5 decreased ROM, with normal tone NEURO: CN 2-12 grossly intact. Sensation intact but altered in all extremities. No trem or noted in 4 extremities. POSTURE and GAIT: Sitting posture and fair. Balance appears poor. Standing balance is poor. PSYCH: Alert, oriented x3, affect appears anxious. Insight appears intact. - Constitutional Vitals: Vital Signs - 12hr 02/11/19 02/12/19 02/12/19 22:00 01:46 05:08 Temperature 37.1 C Pulse Rate 125 H Pulse Rate [ Anterior Bilateral Throughout] Pulse Rate [ Posterior Bilateral Throughout] Respiratory 20 Rate Respiratory Rate [Anterior Bilateral Throughout] Respiratory Rate [Posterior Bilateral Throughout] Blood Pressure 129/79 Blood Pressure [Right] O2 Sat by Pulse 96 96 94 Oximetry 02/12/19 02/12/19 02/12/19 05:39 05:45 08:45 Temperature 36.4 C Pulse Rate 125 H 125 H Pulse Rate [ Anterior Bilateral Throughout] Pulse Rate [ Posterior Bilateral Throughout] Respiratory 17 Rate Respiratory Rate [Anterior Bilateral Throughout] Respiratory Rate [Posterior Bilateral Throughout] Blood Pressure Blood Pressure 110/61 [Right] O2 Sat by Pulse 98 98 98 Oximetry 02/12/19 02/12/19 08:46 08:48 Temperature 36.5 C Pulse Rate 126 H Pulse Rate [ 128 H Anterior Bilateral Throughout] Pulse Rate [ 125 H Posterior Bilateral Throughout] Respiratory 18 Rate Respiratory 18 Rate [Anterior Bilateral Throughout] Respiratory 18 Rate [Posterior Bilateral Throughout] Blood Pressure 100/75 Blood Pressure [Right] O2 Sat by Pulse 98 Oximetry - Allied health notes Allied health notes reviewed: nursing, PT, OT FIMS assessment as documented by PT/OT/ST: Grooming Patient cleans teeth/dentures: Yes Patient epperson/brushes hair: Yes Patient washes, rinses and Yes dries face: Patient washes, rinses and Yes dries hands: Patient shaves: No Patient applies make-up: No Patient performs (no make-up/ 4/4 (100%) shaving): Grooming FIM Score 4. Minimal Assistance (Patient = 75% or more. Needs touching.) Social interaction/Memory/Problem solving Social Interaction FIM Score 5. Supervision (Needs supv. <10%. Needs encouragement to participate.) Memory FIM Score 5. Supervision (Needs cueing <10%, stressful/ unfamiliar situations.) Problem Solving FIM Score 5. Supervision (Needs cueing <10% to solve routine problems.) Transfers Mode of Locomotion: Wheelchair Bed/Chair/Wheelchair Transfers 1. Total Assistance (Patient less than 25%. 2 or FIM Score more persons.) Locomotion- Stairs Stairs FIM Score 0. Activity does not occur Locomotion- walk/wheelchair Most Frequent Mode of Wheelchair Locomotion: Ambulation Distance 0 Walking FIM Score 0. Activity does not occur Wheelchair Propulsion Distance 190 Wheelchair FIM Score 4. Minimal Assistance (Patient = 75% or more. Minimum of 150 ft.) Eating Eating FIM Score 6. Modified Benson (Special consistency or uses device.) Dressing-Upper body Patient retrieves clothing No items: Patient applies/removes UE No prosthesis or orthosis: Upper Body Dressing FIM Score 4. Minimal Assistance (Patient = 75% or more. Needs touching.) Dressing-lower body Lower Body Dressing Device Cinder Snapper/Stick,Sock Aid Patient retrieves clothing No items: Patient applies/removes LE N/A prosthesis or orthosis: Lower Body Dressing FIM Score 3. Moderate Assistance (Patient = 50% or more) - Labs CBC & Chem 7: 02/13/19 06:38 02/13/19 06:38 Labs: Laboratory Results - last 72 hr 02/06/19 02/09/19 02/09/19 06:10 15:09 15:21 WBC 6.6 RBC 3.34 L Hgb 8.3 L Hct 26.6 L MCV 80 MCH 25 L MCHC 31 RDW 22.4 H Plt Count 136 L Heparin Anti-Xa, Unfract Negative Sodium Potassium Chloride Carbon Dioxide Anion Gap BUN Creatinine Estimated GFR BUN/Creatinine Ratio Glucose POC Glucose 123 H Calcium Iron Ferritin Heparin-induced Plt Ab Negative UF Heparin High Dose 0 KRISTEN UFH Low Dose 0.1 0 KRISTEN UFH Low Dose 0.5 0 02/09/19 02/09/19 02/09/19 15:21 17:42 21:13 WBC RBC Hgb Hct MCV MCH MCHC RDW Plt Count Heparin Anti-Xa, Unfract Sodium 140 Potassium 4.4 Chloride 99.2 Carbon Dioxide 27 Anion Gap 18 BUN 26 H Creatinine 0.5 L Estimated GFR > 60 BUN/Creatinine Ratio 52 Glucose 108 H POC Glucose 119 H 132 H Calcium 8.2 L Iron Ferritin Heparin-induced Plt Ab UF Heparin High Dose KRISTEN UFH Low Dose 0.1 KRISTEN UFH Low Dose 0.5 02/10/19 02/10/19 02/10/19 07:46 12:04 17:12 WBC RBC Hgb Hct MCV MCH MCHC RDW Plt Count Heparin Anti-Xa, Unfract Sodium Potassium Chloride Carbon Dioxide Anion Gap BUN Creatinine Estimated GFR BUN/Creatinine Ratio Glucose POC Glucose 97 158 H 181 H Calcium Iron Ferritin Heparin-induced Plt Ab UF Heparin High Dose KRISTEN UFH Low Dose 0.1 KRISETN UFH Low Dose 0.5 02/10/19 02/11/19 02/11/19 21:54 07:02 07:02 WBC 5.5 RBC 3.75 Hgb 9.0 L Hct 29.2 L MCV 78 L MCH 24 L MCHC 31 RDW 22.8 H Plt Count 145 Heparin Anti-Xa, Unfract Sodium 139 Potassium 4.5 Chloride 96.8 L Carbon Dioxide 31 H Anion Gap 16 BUN 25 H Creatinine 0.5 L Estimated GFR > 60 BUN/Creatinine Ratio 50 Glucose 99 POC Glucose 146 H Calcium 8.8 Iron Ferritin Heparin-induced Plt Ab UF Heparin High Dose KRISTEN UFH Low Dose 0.1 KRISTEN UFH Low Dose 0.5 02/11/19 02/11/19 02/11/19 09:02 11:57 23:40 WBC RBC Hgb Hct MCV MCH MCHC RDW Plt Count Heparin Anti-Xa, Unfract Sodium Potassium Chloride Carbon Dioxide Anion Gap BUN Creatinine Estimated GFR BUN/Creatinine Ratio Glucose POC Glucose 173 H 161 H 207 H Calcium Iron Ferritin Heparin-induced Plt Ab UF Heparin High Dose KRISTEN UFH Low Dose 0.1 KRISTEN UFH Low Dose 0.5 02/12/19 02/12/19 02/12/19 06:03 06:03 07:36 WBC RBC Hgb Hct MCV MCH MCHC RDW Plt Count Heparin Anti-Xa, Unfract Sodium Potassium Chloride Carbon Dioxide Anion Gap BUN Creatinine Estimated GFR BUN/Creatinine Ratio Glucose POC Glucose 96 Calcium Iron 34 L Ferritin 111.5 Heparin-induced Plt Ab UF Heparin High Dose KRISTEN UFH Low Dose 0.1 KRISTEN UFH Low Dose 0.5 Assessment and Plan Left BKA: Continue supportive care. We'll continue to work with therapy on transfers in order to facilitate safe transition home. At this point based on the patient's comorbidities it does not appear that she will be a good candidate for a prosthesis. We will likely discharge home at wheelchair level. Atrial fibrillation: Need to improve rate control. Tachycardic 120s. Eliquis for anticoagulation. Cardiology consult. Cellulitis right knee: keflex, monitor COPD: Continue respiratory support with prednisone and inhalers. DuoNeb. Respiratory therapy eval and nasal cannula for oxygen. CHF: Continue diuresis, monitor renal function, continue Entresto - consult Paul. Heart. Hypertension: Continue medications and adjust as needed, improving currently. Diabetes, poorly controlled: Continue controlled carb diet, continue insulin monitor and adjust as needed Coronary artery disease: ASA and plavix d/c'd due to thrombocytopenia and minor bleeding. Monitor for any signs of bleeding. Monitor for any chest pain or cardiac symptoms. Peripheral vascular disease: monitor for any signs of bleeding. Monitor H&H. Off antiplatelets due to thrombocytopenia DVT R brachial vein: Discussed risk and benefits with patient, confirmed with Doppler, started Eliquis. Monitor for any signs of bleeding. Hgb stable Morbid obesity: Discussed weight loss, lifestyle change, dietary modification Suspected pneumonia: Completed Levaquin. Short course mucomyst MRSA bacteremia: Completed vancomycin. D/C isolation. Last blood culture was negative Anxiety/depression: continue Xanax and Paxil Skin: continue juancho-care Right shoulder pain: Chronic in nature. Speed's POS. Voltaren gel, modalities. Pain improved Z73.6 ADL dysfunction: OT will work on improving ability to perform ADLs (including assistive devices) to increase independence and decrease caregiver burden and improve functional transfers and mobility training. R26.2 Difficulty walking: PT will work on gait training and proper use of assistive devices and advance as appropriate to use of stairs and outside ambulation on uneven surfaces. R26.81 Unsteadiness on feet: PT will work on improving static and dynamic sitting and standing balance as well as proper use of assistive devices to decrease risk of falls. R26.89 Abnormality of gait: PT will work to improve safety and efficiency of gait through neuromotor training and gait training along with instruction on proper use of assistive devices. M62.81 Muscle weakness: PT & OT will work on strengthening exercises to improve functional strength including mixture of closed and open kinetic chain exercises. R53.81 Debility: PT & OT will work on improving overall functional status to improve participation with ADLs, mobility and social involvement. R53.83 Fatigue: PT & OT will work on improving endurance through aerobic exercises and therapeutic activity while monitoring patients tolerance for activity and vital signs as needed. DVT ppx: Started on Eliquis for RUE DVT Pain: Continue physical modalities in therapy and pain medications as needed to achieve functional pain control. Patient remains on Percocet for chronic pain Sleep: Monitor and address as needed. Melatonin Bowel: Monitor and address as needed. Appetite: Monitor and address as needed. Discharge planning: Pending therapy progress and care plan meeting. Will continue discussion with therapy team, SW, patient and family. Plan for 02/19 d/c Restrictions/ Precautions: Falls, cardiac WB status: FWB Functional Hx: ADLs: Needed assistance Cognition: Ind Mobility: RW Barriers to Discharge: Decreased mobility and ability to perform self care, balance deficits, weakness Estimated Length of Stay: 1014 days Discharge Destination: Home with family
[2019-02-12] MEDS: TOPROL XL PO SCH (11:44)
--- NOTE | 2019-02-12 17:33 | Progress Note ---
Assessment and Plan - Patient Problems (1) Abdominal pain Current Visit: No Status: Acute Qualifiers: Abdominal location: generalized Qualified Code(s): R10.84 - Generalized abdominal pain Plan to address problem: pain control. (2) Anal wart Current Visit: No Status: Acute Plan to address problem: local tx, or ID eval. (3) Atrial flutter Current Visit: No Status: Acute Plan to address problem: follow cardiology. (4) Congestive cardiomyopathy Current Visit: No Status: Acute Plan to address problem: follow cardiology. (5) DVT prophylaxis Current Visit: No Status: Acute Plan to address problem: continue as current. (6) Anemia Current Visit: Yes Status: Acute Plan to address problem: See notes section. stable. (7) Thrombocytopenia Current Visit: Yes Status: Acute Plan to address problem: see notes section. probably infection in the wound related, vs nutrition, iron is low, B12 low end of NL. other etiology, is the vancomycin. Subjective Date of service: 02/12/19 Principal diagnosis: Left BKA, debility Interval history: patient seen/examined, resting in bed, NAD, labs reviewed.PLT dropped by additional 2K., still no bleeding. patient seen/examined, resting in bed, records reviewed. No new issues at this time. Patient seen/examined, resting in bed, labs reviewed, case d/w patient Patient seen/examined, resting in bed labs reviewed, case d/w patient. Will continue to follow you. patient seen, resting in bed, lates labs reviewed.No new issues at this time. Patient seen/examined, resting in bed, labs reviewed, Iron labs ordered. Patient seen/resting in bed, labs reviewed. NAD at this time. Objective - Constitutional Vitals: Vital Signs - 12hr 02/12/19 02/12/19 02/12/19 05:39 05:45 08:45 Temperature 97.6 F Pulse Rate 125 H 125 H Pulse Rate [ Anterior Bilateral Throughout] Pulse Rate [ Posterior Bilateral Throughout] Respiratory 17 Rate Respiratory Rate [Anterior Bilateral Throughout] Respiratory Rate [Posterior Bilateral Throughout] Blood Pressure Blood Pressure 110/61 [Right] O2 Sat by Pulse 98 98 98 Oximetry 02/12/19 02/12/19 02/12/19 08:46 08:48 11:42 Temperature 97.7 F Pulse Rate 126 H 128 H Pulse Rate [ 128 H Anterior Bilateral Throughout] Pulse Rate [ 125 H Posterior Bilateral Throughout] Respiratory 18 20 Rate Respiratory 18 Rate [Anterior Bilateral Throughout] Respiratory 18 Rate [Posterior Bilateral Throughout] Blood Pressure 100/75 123/46 Blood Pressure [Right] O2 Sat by Pulse 98 93 Oximetry 02/12/19 02/12/19 02/12/19 11:43 11:44 14:18 Temperature Pulse Rate 128 H 129 H Pulse Rate [ Anterior Bilateral Throughout] Pulse Rate [ Posterior Bilateral Throughout] Respiratory 18 Rate Respiratory Rate [Anterior Bilateral Throughout] Respiratory Rate [Posterior Bilateral Throughout] Blood Pressure 123/46 Blood Pressure [Right] O2 Sat by Pulse 93 Oximetry 02/12/19 15:56 Temperature 98.8 F Pulse Rate 128 H Pulse Rate [ Anterior Bilateral Throughout] Pulse Rate [ Posterior Bilateral Throughout] Respiratory 18 Rate Respiratory Rate [Anterior Bilateral Throughout] Respiratory Rate [Posterior Bilateral Throughout] Blood Pressure 102/59 Blood Pressure [Right] O2 Sat by Pulse 96 Oximetry General appearance: Present: mild distress, well-nourished - EENT Eyes: PERRL, EOM intact ENT: hearing intact, clear oral mucosa Ears: bilateral: normal - Neck Neck: supple, normal ROM - Respiratory Respiratory effort: normal Respiratory: bilateral: CTA - Breasts Breasts: deferred - Cardiovascular Rhythm: regular Heart Sounds: Present: S1 & S2. Absent: gallop, rub Extremities: pulses intact, No edema, normal color, Full ROM - Gastrointestinal General gastrointestinal: Present: soft, non-tender, non-distended, normal bowel sounds Rectal Exam: deferred - Genitourinary Female genitourinary: deferred - Integumentary Integumentary: clear, warm, dry - Musculoskeletal Musculoskeletal: 1, strength equal bilaterally - Neurologic Neurologic: moves all extremities - Psychiatric Psychiatric: memory intact, appropriate mood/affect, intact judgment & insight - Labs CBC & Chem 7: 02/11/19 07:02 02/11/19 07:02 Labs: Abnormal lab results 02/11/19 02/11/19 02/11/19 Range/Units 09:02 11:57 23:40 POC Glucose 173 H 161 H 207 H (70-105) Uric Acid (3.5-7.6) mg/dL Iron (37-170) ug/dL 02/12/19 02/12/19 02/12/19 Range/Units 06:03 12:34 16:31 POC Glucose 136 H (70-105) Uric Acid 8.5 H (3.5-7.6) mg/dL Iron 34 L (37-170) ug/dL
[2019-02-12] MEDS: LANOXIN PO SCH (18:07)
[2019-02-12] MEDS: MELATONIN PO SCH (22:00)
[2019-02-12] MEDS: KEFLEX PO SCH (22:04)
[2019-02-12] MEDS: LANTUS SUB-Q SCH (22:09)
[2019-02-13] MEDS: PERCOCET 5/325 PO PRN ×4 (02:24→21:22)
[2019-02-13] MEDS: NEURONTIN PO SCH ×4 (02:24→17:28)
[2019-02-13] MEDS: LASIX PO SCH ×2 (06:37→17:29)
[2019-02-13 06:59] LABS: Hematocrit 28.5 % (30.3-42.9); Hemoglobin 8.7 gm/dl (10.1-14.3); Mean Corpuscular HGB Conc 30 % (30-34); Mean Corpuscular Volume 79 fl (79-97); Platelet Count 175 K/mm3 (140-440); Red Blood Count 3.62 M/mm3 (3.65-5.03)
[2019-02-13 07:03] LABS: Red Cell Distribution Width 22.6 % (13.2-15.2)
[2019-02-13 07:15] LABS: BUN/Creatinine Ratio 48; Blood Urea Nitrogen 24 mg/dL (7-17); Calcium 8.6 mg/dL (8.4-10.2); Hemolysis Index 0
--- NOTE | 2019-02-13 07:30 | Progress Note ---
Subjective Date of service: 02/13/19 Principal diagnosis: Left BKA, debility Interval history: 58-year-old female with recent history of a left BKA revision started to develop extreme pain in the legs and buttocks along with tachycardia. At the ER she was found to have atrial fibrillation with RVR. Her reports she was supposed to be on amiodarone was apparently noncompliant with this. She was started on amiodarone drip. She developed an acute mental status change but workup was negative for any acute changes. She is transferred to the ICU placed on BiPAP with some improvements noted. She developed MRSA bacteremia and was started on vancomycin. On 01/21 she was noted to have a right brachial DVT and was placed on a heparin drip. This was not seen in paperwork that we reviewed prior to admission and she was not transferred on any anticoagulation. There was mention under atrial fibrillation that she was not a good candidate for anticoagulation, however with both atrial fibrillation and a DVT she is at a higher risk for an embolic event. Discussed with the patient risks and benefits and have started her on Eliquis. She continued to have persistent respiratory issues with w heezing and shortness of breath. She was started on Entresto along with IV steroids and is now on oral steroid wean. Patient is participating in therapy and making progress. Taking rest breaks as needed. +BM. Denies palpitations, N/V, diarrhea. . BP improved. Tachycardic in the high 120s. Legs weeping, lymphedema wrap in place. Discussed plan with patient. Right knee pain better, swollen, not warm to touch today. Looks c/w cellulitis - short course of keflex. Continue to monitor. Cont to monitor for improvement in plts. All records, vitals, labs and medications were reviewed. No other issues per patient, nursing or therapy. Objective - Exam Narrative Exam: MUSCULOSKELETAL SPECIALTY EXAM CONSTITUTIONAL: Well developed, well nourished, appropriately groomed, obese EENT: EOMI. Hearing intact to soft voice RESPIRATORY: CTA bilaterally, slightly better, no increased work of breathing, on nasal cannula CARDIOVASCULAR: Regular Rhythm, tachycardic, no tenderness in BUE or BLE. 3+ pitting edema in BLE, with weeping today. All extremities warm. No bleeding noted today GI: + bowel sounds, soft, NTTP, nondistended, protuberant INTEGUMENTARY: Widespread bruising, sores, and lesions, no rash or masses noted in extremities. Redness on sacral area, not pressure wound. Warty growth in juancho area MUSCULOSKELETAL: Right knee swollen and slightly TTP, otherwise BUE and BLE normal without defect, crepitus, subluxation, effusion, arthritic changes or TTP except for Left BKA and right toe amputations as noted. BUE 4/5, good ROM, with normal tone. BLE 3/5 decreased ROM, with normal tone NEURO: CN 2-12 grossly intact. Sensation intact but altered in all extremities. No tremor noted in 4 extremities. POSTURE and GAIT: Sitting posture and fair. Balance appears poor. Standing balance is poor. PSYCH: Alert, oriented x3, affect appears anxious. Insight appears intact. - Constitutional Vitals: Vital Signs - 12hr 02/12/19 02/12/19 02/13/19 21:19 22:05 04:54 Temperature 36.6 C 37.1 C Pulse Rate 126 H 125 H Respiratory 20 20 Rate Blood Pressure 110/70 Blood Pressure 112/67 [Right] O2 Sat by Pulse 100 98 95 Oximetry - Allied health notes Allied health notes reviewed: nursing, PT, OT FIMS assessment as documented by PT/OT/ST: Grooming Patient cleans teeth/dentures: Yes Patient epperson/brushes hair: Yes Patient washes, rinses and Yes dries face: Patient washes, rinses and Yes dries hands: Patient shaves: No Patient applies make-up: No Patient performs (no make-up/ 4/4 (100%) shaving): Grooming FIM Score 4. Minimal Assistance (Patient = 75% or more. Needs touching.) Social interaction/Memory/Problem solving Social Interaction FIM Score 5. Supervision (Needs supv. <10%. Needs encouragement to participate.) Memory FIM Score 5. Supervision (Needs cueing <10%, stressful/ unfamiliar situations.) Problem Solving FIM Score 5. Supervision (Needs cueing <10% to solve routine problems.) Transfers Mode of Locomotion: Wheelchair Bed/Chair/Wheelchair Transfers 1. Total Assistance (Patient less than 25%. 2 or FIM Score more persons.) Locomotion- Stairs Stairs FIM Score 0. Activity does not occur Locomotion- walk/wheelchair Most Frequent Mode of Wheelchair Locomotion: Ambulation Distance 0 Walking FIM Score 0. Activity does not occur Wheelchair Propulsion Distance 190 Wheelchair FIM Score 4. Minimal Assistance (Patient = 75% or more. Minimum of 150 ft.) Eating Eating FIM Score 6. Modified [place] (Special consistency or uses device.) Dressing-Upper body Patient retrieves clothing No items: Patient applies/removes UE No prosthesis or orthosis: Upper Body Dressing FIM Score 4. Minimal Assistance (Patient = 75% or more. Needs touching.) Dressing-lower body Lower Body Dressing Device Director [employer]/Stick,Sock Aid Patient retrieves clothing No items: Patient applies/removes LE N/A prosthesis or orthosis: Lower Body Dressing FIM Score 3. Moderate Assistance (Patient = 50% or more) - Labs CBC & Chem 7: 02/13/19 06:38 02/13/19 06:38 Labs: Laboratory Results - last 72 hr 02/06/19 02/10/19 02/10/19 06:10 07:46 12:04 WBC RBC Hgb Hct MCV MCH MCHC RDW Plt Count Sodium Potassium Chloride Carbon Dioxide Anion Gap BUN Creatinine Estimated GFR BUN/Creatinine Ratio Glucose POC Glucose 97 158 H Uric Acid Calcium Iron Ferritin Serotonin Release Assay See scanned result 02/10/19 02/10/19 02/11/19 17:12 21:54 07:02 WBC 5.5 RBC 3.75 Hgb 9.0 L Hct 29.2 L MCV 78 L MCH 24 L MCHC 31 RDW 22.8 H Plt Count 145 Sodium Potassium Chloride Carbon Dioxide Anion Gap BUN Creatinine Estimated GFR BUN/Creatinine Ratio Glucose POC Glucose 181 H 146 H Uric Acid Calcium Iron Ferritin Serotonin Release Assay 02/11/19 02/11/19 02/11/19 07:02 09:02 11:57 WBC RBC Hgb Hct MCV MCH MCHC RDW Plt Count Sodium 139 Potassium 4.5 Chloride 96.8 L Carbon Dioxide 31 H Anion Gap 16 BUN 25 H Creatinine 0.5 L Estimated GFR > 60 BUN/Creatinine Ratio 50 Glucose 99 POC Glucose 173 H 161 H Uric Acid Calcium 8.8 Iron Ferritin Serotonin Release Assay 02/11/19 02/12/19 02/12/19 23:40 06:03 06:03 WBC RBC Hgb Hct MCV MCH MCHC RDW Plt Count Sodium Potassium Chloride Carbon Dioxide Anion Gap BUN Creatinine Estimated GFR BUN/Creatinine Ratio Glucose POC Glucose 207 H Uric Acid Calcium Iron 34 L Ferritin 111.5 Serotonin Release Assay 02/12/19 02/12/19 02/12/19 07:36 11:47 12:34 WBC RBC Hgb Hct MCV MCH MCHC RDW Plt Count Sodium Potassium Chloride Carbon Dioxide Anion Gap BUN Creatinine Estimated GFR BUN/Creatinine Ratio Glucose POC Glucose 96 88 Uric Acid 8.5 H Calcium Iron Ferritin Serotonin Release Assay 02/12/19 02/12/19 02/13/19 16:31 22:20 06:38 WBC 5.6 RBC 3.62 L Hgb 8.7 L Hct 28.5 L MCV 79 MCH 24 L MCHC 30 RDW 22.6 H Plt Count 175 Sodium Potassium Chloride Carbon Dioxide Anion Gap BUN Creatinine Estimated GFR BUN/Creatinine Ratio Glucose POC Glucose 136 H 162 H Uric Acid Calcium Iron Ferritin Serotonin Release Assay 02/13/19 06:38 WBC RBC Hgb Hct MCV MCH MCHC RDW Plt Count Sodium 138 Potassium 4.1 Chloride 97.5 L Carbon Dioxide 29 Anion Gap 16 BUN 24 H Creatinine 0.5 L Estimated GFR > 60 BUN/Creatinine Ratio 48 Glucose 110 H POC Glucose Uric Acid Calcium 8.6 Iron Ferritin Serotonin Release Assay Assessment and Plan Left BKA: Continue supportive care. We'll continue to work with therapy on transfers in order to facilitate safe transition home. At this point based on the patient's comorbidities it does not appear that she will be a good candidate for a prosthesis. We will likely discharge home at wheelchair level. Atrial fibrillation: Need to improve rate control. Tachycardic 120s. Eliquis for anticoagulation. Cardiology consult. Cellulitis right knee: keflex, monitor COPD: Continue respiratory support with prednisone and inhalers. DuoNeb. Respiratory therapy eval and nasal cannula for oxygen. CHF: Continue diuresis, monitor renal function, continue Entresto - consult Paul. Heart. Hypertension: Continue medications and adjust as needed, improving currently. Diabetes, poorly controlled: Continue controlled carb diet, continue insulin monitor and adjust as needed Coronary artery disease: ASA and plavix d/c'd due to thrombocytopenia and minor bleeding. Monitor for any signs of bleeding. Monitor for any chest pain or cardiac symptoms. Peripheral vascular disease: monitor for any signs of bleeding. Monitor H&H. Off antiplatelets due to thrombocytopenia DVT R brachial vein: Discussed risk and benefits with patient, confirmed with Doppler, started Eliquis. Monitor for any signs of bleeding. Hgb stable Morbid obesity: Discussed weight loss, lifestyle change, dietary modification Suspected pneumonia: Completed Levaquin. Short course mucomyst MRSA bacteremia: Completed vancomycin. D/C isolation. Last blood culture was negative Anxiety/depression: continue Xanax and Paxil Skin: continue juancho-care Right shoulder pain: Chronic in nature. Speed's POS. Voltaren gel, modalities. Pain improved Z73.6 ADL dysfunction: OT will work on improving ability to perform ADLs (including assistive devices) to increase independence and decrease caregiver burden and improve functional transfers and mobility training. R26.2 Difficulty walking: PT will work on gait training and proper use of assistive devices and advance as appropriate to use of stairs and outside ambulation on uneven surfaces. R26.81 Unsteadiness on feet: PT will work on improving static and dynamic sitting and standing balance as well as proper use of assistive devices to decrease risk of falls. R26.89 Abnormality of gait: PT will work to improve safety and efficiency of gait through neuromotor training and gait training along with instruction on proper use of assistive devices. M62.81 Muscle weakness: PT & OT will work on strengthening exercises to improve functional strength including mixture of closed and open kinetic chain exerc ises. R53.81 Debility: PT & OT will work on improving overall functional status to improve participation with ADLs, mobility and social involvement. R53.83 Fatigue: PT & OT will work on improving endurance through aerobic exercises and therapeutic activity while monitoring patients tolerance for ac tivity and vital signs as needed. DVT ppx: Started on Eliquis for RUE DVT Pain: Continue physical modalities in therapy and pain medications as needed to achieve functional pain control. Patient remains on Percocet for chronic pain Sleep: Monitor and address as needed. Melatonin Bowel: Monitor and address as needed. Appetite: Monitor and address as needed. Discharge planning: Pending therapy progress and care plan meeting. Will continue discussion with therapy team, SW, patient and family. Plan for 02/19 d/c Restrictions/ Precautions: Falls, cardiac WB status: FWB Functional Hx: ADLs: Needed assistance Cognition: Ind Mobility: RW Barriers to Discharge: Decreased mobility and ability to perform self care, balance deficits, weakness Estimated Length of Stay: 1014 days Discharge Destination: Home with family
[2019-02-13] MEDS: ENTRESTO 24 - 26 MG PO SCH ×2 (09:00→21:23)
[2019-02-13] MEDS: VITAMIN C PO SCH ×2 (09:00→21:23)
[2019-02-13] MEDS: ZINC SULFATE PO SCH ×2 (09:00→21:24)
[2019-02-13] MEDS: THERAGRAN-M Tab PO SCH (09:00)
[2019-02-13] MEDS: TOPROL XL PO SCH (09:01)
[2019-02-13] MEDS: ELIQUIS PO SCH ×2 (09:01→21:22)
[2019-02-13] MEDS: CORDARONE PO SCH ×2 (09:01→21:21)
[2019-02-13] MEDS: PAXIL PO SCH (09:01)
[2019-02-13] MEDS: KEFLEX PO SCH ×2 (09:02→21:21)
[2019-02-13] MEDS: DUONEB *Not for PRN Use IH SCH ×4 (09:05→22:34)
[2019-02-13] MEDS: HumaLOG SUB-Q SCH ×4 (09:12→21:29)
[2019-02-13] MEDS: DICLOFENAC 1% TP SCH ×3 (09:12→21:29)
--- NOTE | 2019-02-13 09:46 | Progress Note ---
Assessment and Plan s/p left BKA Thrombocytopenia Permanent Atrial fib/flutter on metoprolol and amiodarone for rate control on eliquis for oral anticoagulation therapy. Ischemic cardiomyopathy with EF 30-35% CAD s/p 3v CABG in 2013 Cor Pulmonale COPD Tobacco abuse Htn DM PAD Chronic non-compliance with medical therapy and medical follow up Continue medical therapy for ischemic cardiomyopathy, coronary artery disease. Continue digoxin, amiodarone and metoprolol for optimal rate control of her Afib. Otherwise, conservative cardiac management. Subjective Date of service: 02/13/19 Principal diagnosis: Left BKA, debility Interval history: Patient has no complaints. She denies shortness of breath, chest pain and palpitations. Objective Vital Signs Temp Pulse Resp BP BP Pulse Ox 02/13/19 08:10 98.9 F 114 H 20 114/75 97 02/13/19 04:54 98.7 F 125 H 20 110/70 95 02/12/19 22:05 97.9 F 126 H 20 112/67 98 02/12/19 21:19 100 02/12/19 18:07 124 H 02/12/19 15:56 98.8 F 128 H 18 102/59 96 02/12/19 14:18 18 02/12/19 11:44 129 H 123/46 02/12/19 11:43 128 H 93 02/12/19 11:42 128 H 20 123/46 93 - Physical Examination General: No Apparent Distress, Other (obese) HEENT: Positive: PERRL Neck: Positive: trachea midline Cardiac: Positive: irregularly irregular Lungs: Positive: Decreased Breath Sounds Neuro: Positive: Grossly Intact Abdomen: Positive: Active Bowel Sounds Extremities: Present: Other (left BKA) - Labs and Meds CBC 02/13/19 Range/Units 06:38 WBC 5.6 (4.5-11.0) K/mm3 RBC 3.62 L (3.65-5.03) M/mm3 Hgb 8.7 L (10.1-14.3) gm/dl Hct 28.5 L (30.3-42.9) % Plt Count 175 (140-440) K/mm3 Comprehensive Metabolic Panel 02/13/19 Range/Units 06:38 Sodium 138 (137-145) mmol/L Potassium 4.1 (3.6-5.0) mmol/L Chloride 97.5 L (98-107) mmol/L Carbon Dioxide 29 (22-30) mmol/L BUN 24 H (7-17) mg/dL Creatinine 0.5 L (0.7-1.2) mg/dL Glucose 110 H (65-100) mg/dL Calcium 8.6 (8.4-10.2) mg/dL
[2019-02-13] MEDS: LOPRESSOR PO SCH ×2 (17:26→21:29)
[2019-02-13] MEDS: LANOXIN PO SCH (17:29)
--- NOTE | 2019-02-13 20:22 | Progress Note ---
Assessment and Plan - Patient Problems (1) Abdominal pain Current Visit: No Status: Acute Qualifiers: Abdominal location: generalized Qualified Code(s): R10.84 - Generalized abdominal pain Plan to address problem: pain control. (2) Anal wart Current Visit: No Status: Acute Plan to address problem: local tx, or ID eval. (3) Atrial flutter Current Visit: No Status: Acute Plan to address problem: follow cardiology. (4) Congestive cardiomyopathy Current Visit: No Status: Acute Plan to address problem: follow cardiology. (5) DVT prophylaxis Current Visit: No Status: Acute Plan to address problem: continue as current. (6) Anemia Current Visit: Yes Status: Acute Plan to address problem: See notes section. stable. (7) Thrombocytopenia Current Visit: Yes Status: Acute Plan to address problem: see notes section. probably infection in the wound related, vs nutrition, iron is low, B12 low end of NL. other etiology, is the vancomycin. Normalized. Subjective Date of service: 02/13/19 Principal diagnosis: Left BKA, debility Interval history: patient seen/examined, resting in bed, NAD, labs reviewed.PLT dropped by additional 2K., still no bleeding. patient seen/examined, resting in bed, records reviewed. No new issues at this time. Patient seen/examined, resting in bed, labs reviewed, case d/w patient Patient seen/examined, resting in bed labs reviewed, case d/w patient. Will continue to follow you. patient seen, resting in bed, lates labs reviewed.No new issues at this time. Patient seen/examined, resting in bed, labs reviewed, Iron labs ordered. Patient seen/resting in bed, labs reviewed. NAD at this time. Patient seen/examined, resting in bed, labs reviewed, case d/w patient, Temp 100.2, tylenol will be given. Objective - Constitutional Vitals: Vital Signs - 12hr 02/13/19 02/13/19 02/13/19 09:05 12:50 14:28 Temperature 98.3 F Pulse Rate 77 Pulse Rate [ 123 H 124 H Anterior Bilateral Throughout] Respiratory 18 Rate Respiratory 22 20 Rate [Anterior Bilateral Throughout] Blood Pressure 104/60 O2 Sat by Pulse 100 67 L Oximetry 02/13/19 02/13/19 02/13/19 15:00 16:55 16:57 Temperature 98.4 F Pulse Rate 120 H Pulse Rate [ Anterior Bilateral Throughout] Respiratory 20 Rate Respiratory Rate [Anterior Bilateral Throughout] Blood Pressure 123/76 O2 Sat by Pulse 95 95 Oximetry 02/13/19 19:36 Temperature 100.2 F H Pulse Rate 126 H Pulse Rate [ Anterior Bilateral Throughout] Respiratory 18 Rate Respiratory Rate [Anterior Bilateral Throughout] Blood Pressure 135/109 O2 Sat by Pulse 98 Oximetry General appearance: Present: mild distress, well-nourished - EENT Eyes: PERRL, EOM intact ENT: hearing intact, clear oral mucosa Ears: bilateral: normal - Neck Neck: supple, normal ROM - Respiratory Respiratory effort: normal Respiratory: bilateral: CTA - Breasts Breasts: deferred - Cardiovascular Rhythm: regular Heart Sounds: Present: S1 & S2. Absent: gallop, rub Extremities: pulses intact, No edema, normal color, Full ROM - Gastrointestinal General gastrointestinal: Present: soft, non-tender, non-distended, normal bowel sounds Rectal Exam: deferred - Genitourinary Female genitourinary: deferred - Integumentary Integumentary: clear, warm, dry - Musculoskeletal Musculoskeletal: 1, strength equal bilaterally - Neurologic Neurologic: moves all extremities - Psychiatric Psychiatric: memory intact, appropriate mood/affect, intact judgment & insight - Labs CBC & Chem 7: 02/13/19 06:38 02/13/19 06:38 Labs: Abnormal lab results 02/12/19 02/13/19 02/13/19 Range/Units 22:20 06:38 06:38 RBC 3.62 L (3.65-5.03) M/mm3 Hgb 8.7 L (10.1-14.3) gm/dl Hct 28.5 L (30.3-42.9) % MCH 24 L (28-32) pg RDW 22.6 H (13.2-15.2) % Chloride 97.5 L (98-107) mmol/L BUN 24 H (7-17) mg/dL Creatinine 0.5 L (0.7-1.2) mg/dL Glucose 110 H (65-100) mg/dL POC Glucose 162 H (70-105) 02/13/19 02/13/19 02/13/19 Range/Units 08: 12:44 17:06 RBC (3.65-5.03) M/mm3 Hgb (10.1-14.3) gm/dl Hct (30.3-42.9) % MCH (28-32) pg RDW (13.2-15.2) % Chloride (98-107) mmol/L BUN (7-17) mg/dL Creatinine (0.7-1.2) mg/dL Glucose (65-100) mg/dL POC Glucose 112 H 150 H 163 H (70-105)
[2019-02-13] MEDS: XANAX PO PRN (21:22)
[2019-02-13] MEDS: LANTUS SUB-Q SCH (21:24)
[2019-02-13] MEDS: MELATONIN PO SCH (21:28)
--- NOTE | 2019-02-13 23:33 | Progress Note ---
Assessment and Plan s/p left BKA Thrombocytopenia Permanent Atrial fib/flutter on metoprolol and amiodarone for rate control on eliquis for oral anticoagulation therapy Ischemic cardiomyopathy with EF 30-35% - on BB therapy. Start ACEi CAD s/p 3v CABG in 2013 - continue BB, ASA, and high intensity statin Cor Pulmonale - management per primary. Gentle diuresis as needed. on oxygen. COPD - management per primary Tobacco abuse Htn - Blood pressure well controlled. DM - management per primary. on statin. Start ACEi. PAD - on ASA and statin Chronic non-compliance with medical therapy and medical follow up Subjective Date of service: 02/14/19 Principal diagnosis: Left BKA, debility Interval history: No acute events. Resting comfortably. No chest pain or SOB. Objective Vital Signs Temp Pulse Pulse Pulse Resp Resp Resp 02/13/19 22:35 120 H 20 02/13/19 21:29 98 H 02/13/19 20:34 02/13/19 19:36 100.2 F H 126 H 18 02/13/19 16:57 98.4 F 20 02/13/19 16:55 120 H 02/13/19 15:00 02/13/19 14:28 124 H 20 02/13/19 12:50 98.3 F 77 18 02/13/19 09:05 123 H 22 02/13/19 08:10 98.9 F 114 H 20 02/13/19 04:54 98.7 F 125 H 20 BP Pulse Ox 02/13/19 22:35 02/13/19 21:29 135/109 02/13/19 20:34 96 02/13/19 19:36 135/109 98 02/13/19 16:57 123/76 02/13/19 16:55 95 02/13/19 15:00 95 02/13/19 14:28 02/13/19 12:50 104/60 67 L 02/13/19 09:05 100 02/13/19 08:10 114/75 97 02/13/19 04:54 110/70 95 - Physical Examination General: No Apparent Distress, Other (obese) HEENT: Positive: PERRL Neck: Positive: trachea midline Neuro: Positive: Grossly Intact Abdomen: Positive: Active Bowel Sounds Extremities: Present: Other (left BKA) - Labs and Meds CBC 02/13/19 Range/Units 06:38 WBC 5.6 (4.5-11.0) K/mm3 RBC 3.62 L (3.65-5.03) M/mm3 Hgb 8.7 L (10.1-14.3) gm/dl Hct 28.5 L (30.3-42.9) % Plt Count 175 (140-440) K/mm3 Comprehensive Metabolic Panel 02/13/19 Range/Units 06:38 Sodium 138 (137-145) mmol/L Potassium 4.1 (3.6-5.0) mmol/L Chloride 97.5 L (98-107) mmol/L Carbon Dioxide 29 (22-30) mmol/L BUN 24 H (7-17) mg/dL Creatinine 0.5 L (0.7-1.2) mg/dL Glucose 110 H (65-100) mg/dL Calcium 8.6 (8.4-10.2) mg/dL
[2019-02-14] MEDS: NEURONTIN PO SCH ×4 (00:53→17:45)
[2019-02-14] MEDS: PERCOCET 5/325 PO PRN ×6 (01:17→22:15)
[2019-02-14] MEDS: LASIX PO SCH ×2 (05:05→17:46)
[2019-02-14] MEDS: LOPRESSOR PO SCH ×2 (05:25→14:02)
[2019-02-14] MEDS: PAXIL PO SCH (08:29)
[2019-02-14] MEDS: ZINC SULFATE PO SCH ×2 (08:29→22:14)
[2019-02-14] MEDS: HumaLOG SUB-Q SCH ×3 (08:29→17:47)
[2019-02-14] MEDS: VITAMIN C PO SCH ×2 (08:29→22:13)
[2019-02-14] MEDS: THERAGRAN-M Tab PO SCH (08:29)
[2019-02-14] MEDS: DICLOFENAC 1% TP SCH ×2 (08:31→14:02)
[2019-02-14] MEDS: DUONEB *Not for PRN Use IH SCH ×2 (08:58→14:10)
[2019-02-14] MEDS: ELIQUIS PO SCH ×2 (09:16→22:13)
[2019-02-14] MEDS: KEFLEX PO SCH ×2 (09:16→22:14)
[2019-02-14] MEDS: XANAX PO PRN ×2 (09:16→23:13)
[2019-02-14] MEDS: CORDARONE PO SCH ×2 (09:21→22:14)
[2019-02-14] MEDS: ENTRESTO 24 - 26 MG PO SCH ×2 (09:21→22:12)
--- NOTE | 2019-02-14 13:09 | Progress Note ---
Assessment and Plan - Patient Problems (1) Abdominal pain Current Visit: No Status: Acute Qualifiers: Abdominal location: generalized Qualified Code(s): R10.84 - Generalized abdominal pain Plan to address problem: pain control. (2) Anal wart Current Visit: No Status: Acute Plan to address problem: local tx, or ID eval. (3) Atrial flutter Current Visit: No Status: Acute Plan to address problem: follow cardiology. (4) Congestive cardiomyopathy Current Visit: No Status: Acute Plan to address problem: follow cardiology. (5) DVT prophylaxis Current Visit: No Status: Acute Plan to address problem: continue as current. (6) Anemia Current Visit: Yes Status: Acute Plan to address problem: See notes section. stable. (7) Thrombocytopenia Current Visit: Yes Status: Acute Plan to address problem: see notes section. probably infection in the wound related, vs nutrition, iron is low, B12 low end of NL. other etiology, is the vancomycin. Normalized. Subjective Date of service: 02/14/19 Principal diagnosis: Left BKA, debility Interval history: patient seen/examined, resting in bed, NAD, labs reviewed.PLT dropped by additional 2K., still no bleeding. patient seen/examined, resting in bed, records reviewed. No new issues at this time. Patient seen/examined, resting in bed, labs reviewed, case d/w patient Patient seen/examined, resting in bed labs reviewed, case d/w patient. Will continue to follow you. patient seen, resting in bed, lates labs reviewed.No new issues at this time. Patient seen/examined, resting in bed, labs reviewed, Iron labs ordered. Patient seen/resting in bed, labs reviewed. NAD at this time. Patient seen/examined, resting in bed, labs reviewed, case d/w patient, Temp 100.2, tylenol will be given. Patient seen, resting in bed, labs reviewed, no new issues at this time. Objective - Constitutional Vitals: Vital Signs - 12hr 02/14/19 02/14/19 02/14/19 05:25 05:38 07:20 Temperature 98.0 F Pulse Rate 121 H 110 H 119 H Pulse Rate [ Anterior Bilateral Throughout] Respiratory 20 Rate Respiratory Rate [Anterior Bilateral Throughout] Blood Pressure 110/61 97/70 Blood Pressure 110/61 [Right] O2 Sat by Pulse 95 Oximetry 0802/14/19 02/14/19 08:58 10:16 11:24 Temperature 97.8 F Pulse Rate 134 H Pulse Rate [ 125 H Anterior Bilateral Throughout] Respiratory 22 22 Rate Respiratory 22 Rate [Anterior Bilateral Throughout] Blood Pressure 113/69 Blood Pressure [Right] O2 Sat by Pulse 95 94 Oximetry General appearance: Present: mild distress, well-nourished - EENT Eyes: PERRL, EOM intact ENT: hearing intact, clear oral mucosa Ears: bilateral: normal - Neck Neck: supple, normal ROM - Respiratory Respiratory effort: normal Respiratory: bilateral: CTA - Breasts Breasts: deferred - Cardiovascular Rhythm: regular Heart Sounds: Present: S1 & S2. Absent: gallop, rub Extremities: pulses intact, No edema, normal color, Full ROM - Gastrointestinal General gastrointestinal: Present: soft, non-tender, non-distended, normal bowel sounds Rectal Exam: deferred - Genitourinary Female genitourinary: deferred - Integumentary Integumentary: clear, warm, dry - Musculoskeletal Musculoskeletal: 1, strength equal bilaterally - Neurologic Neurologic: moves all extremities - Psychiatric Psychiatric: memory intact, appropriate mood/affect, intact judgment & insight - Labs CBC & Chem 7: 02/13/19 06:38 02/13/19 06:38 Labs: Abnormal lab results 02/13/19 02/13/19 02/14/19 Range/Units 17:06 20:57 07:28 POC Glucose 163 H 151 H 160 H (70-105) 02/14/19 Range/Units 11:36 POC Glucose 111 H (70-105)
[2019-02-14] MEDS: LANOXIN PO SCH (17:45)
[2019-02-14] MEDS: MELATONIN PO SCH (21:00)
[2019-02-14] MEDS: LANTUS SUB-Q SCH (21:00)
--- NOTE | 2019-02-14 23:40 | Progress Note ---
Assessment and Plan s/p left BKA Thrombocytopenia Permanent Atrial fib/flutter on metoprolol and amiodarone for rate control, increase digoxin dose today for improved rate control on eliquis for oral anticoagulation therapy Ischemic cardiomyopathy with EF 30-35% - on BB therapy. No ACEi due to low blood pressure CAD s/p 3v CABG in 2013 - continue BB, ASA, and high intensity statin Cor Pulmonale - management per primary. Gentle diuresis as needed. on oxygen. COPD - management per primary Tobacco abuse HtN - Blood pressure well controlled. DM - management per primary. on statin. No ACEi due to low blood pressure. PAD - on ASA and statin Chronic non-compliance with medical therapy and medical follow up Subjective Date of service: 02/15/19 Principal diagnosis: Left BKA, debility Interval history: No acute events. Resting comfortably. No chest pain or SOB. Objective Vital Signs Temp Pulse Pulse Resp Resp BP BP 02/14/19 22:15 18 02/14/19 20:43 98.4 F 119 H 18 89/62 02/14/19 18:45 24 02/14/19 17:45 119 H 24 02/14/19 15:58 98.0 F 119 H 24 99/66 02/14/19 14:10 120 H 20 02/14/19 14:02 134 H 02/14/19 11:24 97.8 F 134 H 22 113/69 02/14/19 10:16 22 02/14/19 08:58 125 H 22 02/14/19 07:20 98.0 F 119 H 20 97/70 02/14/19 05:38 110 H 110/61 02/14/19 05:25 121 H 110/61 Pulse Ox 02/14/19 22:15 02/14/19 20:43 95 02/14/19 18:45 02/14/19 17:45 02/14/19 15:58 95 02/14/19 14:10 02/14/19 14:02 02/14/19 11:24 94 02/14/19 10:16 02/14/19 08:58 95 02/14/19 07:20 95 02/14/19 05:38 02/14/19 05:25 - Physical Examination General: No Apparent Distress, Other (obese) HEENT: Positive: PERRL Neck: Positive: trachea midline Neuro: Positive: Grossly Intact Abdomen: Positive: Active Bowel Sounds Extremities: Present: Other (left BKA)
[2019-02-15] MEDS: PERCOCET 5/325 PO PRN ×5 (02:25→20:02)
[2019-02-15] MEDS: DUONEB *Not for PRN Use IH SCH ×4 (04:20→20:39)
[2019-02-15] MEDS: NEURONTIN PO SCH ×4 (05:45→18:36)
[2019-02-15] MEDS: LASIX PO SCH ×2 (05:45→18:36)
[2019-02-15 07:42] LABS: Hemoglobin 9.1 gm/dl (10.1-14.3); Mean Corpuscular HGB Conc 31 % (30-34); Mean Corpuscular Volume 78 fl (79-97); Platelet Count 225 K/mm3 (140-440); Red Blood Count 3.84 M/mm3 (3.65-5.03); Red Cell Distribution Width 22.7 % (13.2-15.2)
[2019-02-15 07:46] LABS: BUN/Creatinine Ratio 45; Blood Urea Nitrogen 27 mg/dL (7-17); Calcium 8.5 mg/dL (8.4-10.2); Hemolysis Index 0
[2019-02-15] MEDS: HumaLOG SUB-Q SCH ×4 (07:52→22:02)
[2019-02-15] MEDS: THERAGRAN-M Tab PO SCH (09:37)
[2019-02-15] MEDS: VITAMIN C PO SCH ×2 (09:37→21:50)
[2019-02-15] MEDS: ENTRESTO 24 - 26 MG PO SCH ×2 (09:37→21:52)
[2019-02-15] MEDS: KEFLEX PO SCH ×2 (09:37→21:51)
[2019-02-15] MEDS: CORDARONE PO SCH ×2 (09:38→21:52)
[2019-02-15] MEDS: ZINC SULFATE PO SCH ×2 (09:38→21:51)
[2019-02-15] MEDS: PAXIL PO SCH (09:38)
[2019-02-15] MEDS: ELIQUIS PO SCH ×2 (09:38→21:50)
[2019-02-15] MEDS: DICLOFENAC 1% TP SCH ×3 (09:39→22:27)
[2019-02-15] MEDS: XANAX PO PRN ×2 (09:47→21:50)
[2019-02-15] MEDS: LOPRESSOR PO SCH (13:09)
--- NOTE | 2019-02-15 14:05 | Progress Note ---
Assessment and Plan - Patient Problems (1) Abdominal pain Current Visit: No Status: Acute Qualifiers: Abdominal location: generalized Qualified Code(s): R10.84 - Generalized abdominal pain Plan to address problem: pain control. (2) Anal wart Current Visit: No Status: Acute Plan to address problem: local tx, or ID eval. (3) Atrial flutter Current Visit: No Status: Acute Plan to address problem: follow cardiology. (4) Congestive cardiomyopathy Current Visit: No Status: Acute Plan to address problem: follow cardiology. (5) DVT prophylaxis Current Visit: No Status: Acute Plan to address problem: continue as current. (6) Anemia Current Visit: Yes Status: Acute Plan to address problem: See notes section. stable. (7) Thrombocytopenia Current Visit: Yes Status: Acute Plan to address problem: see notes section. probably infection in the wound related, vs nutrition, iron is low, B12 low end of NL. other etiology, is the vancomycin. Normalized. Subjective Date of service: 02/15/19 Principal diagnosis: Left BKA, debility Interval history: patient seen/examined, resting in bed, NAD, labs reviewed.PLT dropped by additional 2K., still no bleeding. patient seen/examined, resting in bed, records reviewed. No new issues at this time. Patient seen/examined, resting in bed, labs reviewed, case d/w patient Patient seen/examined, resting in bed labs reviewed, case d/w patient. Will continue to follow you. patient seen, resting in bed, lates labs reviewed.No new issues at this time. Patient seen/examined, resting in bed, labs reviewed, Iron labs ordered. Patient seen/resting in bed, labs reviewed. NAD at this time. Patient seen/examined, resting in bed, labs reviewed, case d/w patient, Temp 100.2, tylenol will be given. Patient seen, resting in bed, labs reviewed, no new issues at this time. Patient seen, resting in bed, records reviewed, no new issues at this time. Objective - Constitutional Vitals: Vital Signs - 12hr 02/15/19 02/15/19 02/15/19 05:45 06:26 08:26 Temperature 97.4 F L 98.4 F Pulse Rate 121 H 121 H Pulse Rate [ Anterior Bilateral Throughout] Respiratory 18 18 20 Rate Respiratory Rate [Anterior Bilateral Throughout] Blood Pressure 100/63 110/71 O2 Sat by Pulse 96 95 Oximetry 02/15/19 02/15/19 08:27 11:08 Temperature Pulse Rate Pulse Rate [ 123 H Anterior Bilateral Throughout] Respiratory 20 Rate Respiratory 22 Rate [Anterior Bilateral Throughout] Blood Pressure O2 Sat by Pulse 98 Oximetry General appearance: Present: mild distress, well-nourished - EENT Eyes: PERRL, EOM intact ENT: hearing intact, clear oral mucosa Ears: bilateral: normal - Neck Neck: supple, normal ROM - Respiratory Respiratory effort: normal Respiratory: bilateral: CTA - Breasts Breasts: deferred - Cardiovascular Rhythm: regular Heart Sounds: Present: S1 & S2. Absent: gallop, rub Extremities: pulses intact, No edema, normal color, Full ROM - Gastrointestinal General gastrointestinal: Present: soft, non-tender, non-distended, normal bowel sounds Rectal Exam: deferred - Genitourinary Female genitourinary: deferred, normal - Integumentary Integumentary: clear, warm, dry - Musculoskeletal Musculoskeletal: 1, strength equal bilaterally - Neurologic Neurologic: moves all extremities - Psychiatric Psychiatric: memory intact, appropriate mood/affect, intact judgment & insight - Labs CBC & Chem 7: 02/15/19 06:40 02/15/19 06:40 Labs: Abnormal lab results 02/14/19 02/14/19 02/15/19 Range/Units 16:30 22:09 06:40 Hgb 9.1 L (10.1-14.3) gm/dl Hct 30.0 L (30.3-42.9) % MCV 78 L (79-97) fl MCH 24 L (28-32) pg RDW 22.7 H (13.2-15.2) % Chloride (98-107) mmol/L BUN (7-17) mg/dL Creatinine (0.7-1.2) mg/dL POC Glucose 158 H 119 H (70-105) 02/15/19 Range/Units 06:40 Hgb (10.1-14.3) gm/dl Hct (30.3-42.9) % MCV (79-97) fl MCH (28-32) pg RDW (13.2-15.2) % Chloride 97.2 L (98-107) mmol/L BUN 27 H (7-17) mg/dL Creatinine 0.6 L (0.7-1.2) mg/dL POC Glucose (70-105)
[2019-02-15] MEDS: LANOXIN PO SCH (18:36)
[2019-02-15] MEDS: MELATONIN PO SCH (20:02)
[2019-02-15] MEDS: LANTUS SUB-Q SCH (21:53)
[2019-02-16] MEDS: LOPRESSOR PO SCH ×5 (00:18→13:43)
[2019-02-16] MEDS: NEURONTIN PO SCH ×4 (00:33→18:37)
[2019-02-16] MEDS: PERCOCET 5/325 PO PRN ×5 (00:34→19:29)
[2019-02-16] MEDS: LASIX PO SCH ×2 (05:40→19:30)
[2019-02-16] MEDS: HumaLOG SUB-Q SCH ×4 (07:49→23:57)
[2019-02-16] MEDS: DICLOFENAC 1% TP SCH ×3 (08:36→21:59)
[2019-02-16] MEDS: DUONEB *Not for PRN Use IH SCH ×3 (09:00→20:55)
--- NOTE | 2019-02-16 09:15 | Progress Note ---
Subjective Date of service: 02/16/19 Principal diagnosis: Left BKA, debility Interval history: 58-year-old female with recent history of a left BKA revision started to develop extreme pain in the legs and buttocks along with tachycardia. At the ER she was found to have atrial fibrillation with RVR. Her reports she was supposed to be on amiodarone was apparently noncompliant with this. She was started on amiodarone drip. She developed an acute mental status change but workup was negative for any acute changes. She is transferred to the ICU placed on BiPAP with some improvements noted. She developed MRSA bacteremia and was started on vancomycin. On 01/21 she was noted to have a right brachial DVT and was placed on a heparin drip. This was not seen in paperwork that we reviewed prior to admission and she was not transferred on any anticoagulation. There was mention under atrial fibrillation that she was not a good candidate for anticoagulation, however with both atrial fibrillation and a DVT she is at a higher risk for an embolic event. Discussed with the patient risks and benefits and have started her on Eliquis. She continued to have persistent respiratory issues with w heezing and shortness of breath. She was started on Entresto along with IV steroids and is now on oral steroid wean. Patient is participating in therapy and making progress. Taking rest breaks as needed. +BM. Denies palpitations, N/V, diarrhea. . BP improved. Tachycardic in the 120s. Legs weeping, lymphedema wrap in place. Discussed plan with patient. Right knee pain better. Continue short course of keflex. Continue to monitor. Cardiology replacing telemetry. All records, vitals, labs and medications were reviewed. No other issues per patient, nursing or therapy. Objective - Exam Narrative Exam: MUSCULOSKELETAL SPECIALTY EXAM CONSTITUTIONAL: Well developed, well nourished, appropriately groomed, obese EENT: EOMI. Hearing intact to soft voice RESPIRATORY: CTA bilaterally, slightly better, no increased work of breathing, on nasal cannula CARDIOVASCULAR: Regular Rhythm, tachycardic, no tenderness in BUE or BLE. 3+ pitting edema in BLE, with minimal weeping today. All extremities warm. No bleeding noted today GI: + bowel sounds, soft, NTTP, nondistended, protuberant INTEGUMENTARY: Widespread bruising, sores, and lesions, no rash or masses noted in extremities. Redness on sacral area, not pressure wound. Warty growth in juancho area MUSCULOSKELETAL: Right knee swollen and slightly TTP, otherwise BUE and BLE normal without defect, crepitus, subluxation, effusion, arthritic changes or TTP except for Left BKA and right toe amputations as noted. BUE 4/5, good ROM, with normal tone. BLE 3/5 decreased ROM, with normal tone NEURO: CN 2-12 grossly intact. Sensation intact but altered in all extremities. No tremor noted in 4 extremities. POSTURE and GAIT: Sitting posture and fair. Balance appears poor. Standing balance is poor. PSYCH: Alert, oriented x3, affect appears anxious. Insight appears intact. - Constitutional Vitals: Vital Signs - 12hr 02/15/19 02/16/19 02/16/19 22:00 00:18 00:33 Temperature Pulse Rate 68 112 H Pulse Rate [ Anterior Bilateral Throughout] Respiratory Rate Respiratory Rate [Anterior Bilateral Throughout] Respiratory 17 Rate [Right Knee] Blood Pressure 100/45 111/66 O2 Sat by Pulse Oximetry 02/16/19 02/16/19 02/16/19 00:34 01:34 04:19 Temperature 36.7 C Pulse Rate 122 H Pulse Rate [ Anterior Bilateral Throughout] Respiratory 16 17 19 Rate Respiratory Rate [Anterior Bilateral Throughout] Respiratory Rate [Right Knee] Blood Pressure 110/75 O2 Sat by Pulse 97 Oximetry 02/16/19 02/16/19 02/16/19 05:40 05:41 05:45 Temperature Pulse Rate 122 H 122 H Pulse Rate [ Anterior Bilateral Throughout] Respiratory 17 Rate Respiratory Rate [Anterior Bilateral Throughout] Respiratory Rate [Right Knee] Blood Pressure 112/75 112/70 O2 Sat by Pulse Oximetry 02/16/19 02/16/19 02/16/19 06:40 09:00 09:11 Temperature Pulse Rate Pulse Rate [ 117 H Anterior Bilateral Throughout] Respiratory 17 Rate Respiratory 20 Rate [Anterior Bilateral Throughout] Respiratory Rate [Right Knee] Blood Pressure O2 Sat by Pulse 98 Oximetry - Allied health notes Allied health notes reviewed: nursing, PT, OT FIMS assessment as documented by PT/OT/ST: Grooming Patient cleans teeth/dentures: Yes Patient epperson/brushes hair: Yes Patient washes, rinses and Yes dries face: Patient washes, rinses and Yes dries hands: Patient shaves: No Patient applies make-up: No Patient performs (no make-up/ 4/4 (100%) shaving): Grooming FIM Score 4. Minimal Assistance (Patient = 75% or more. Needs touching.) Social interaction/Memory/Problem solving Social Interaction FIM Score 6. Mod. [place] (Mostly appropriate. May need meds. No supv.) Memory FIM Score 6. Modified [place](Mild difficulty remembering people/routines.) Problem Solving FIM Score 5. Supervision (Needs cueing <10% to solve routine problems.) Transfers Mode of Locomotion: Wheelchair Bed/Chair/Wheelchair Transfers 2. Maximal Assistance (Patient = 25% or more) FIM Score Locomotion- Stairs Stairs FIM Score 0. Activity does not occur Locomotion- walk/wheelchair Most Frequent Mode of Wheelchair Locomotion: Ambulation Distance 0 Walking FIM Score 0. Activity does not occur Wheelchair Propulsion Distance 200 Wheelchair FIM Score 4. Minimal Assistance (Patient = 75% or more. Minimum of 150 ft.) Eating Eating FIM Score 7. Complete [place] (Cuts meat, opens containers, regular diet.) Dressing-Upper body Patient retrieves clothing No items: Patient applies/removes UE No prosthesis or orthosis: Upper Body Dressing FIM Score 4. Minimal Assistance (Patient = 75% or more. Needs touching.) Dressing-lower body Lower Body Dressing Device [employer] Project Leader/Stick,Sock Aid Patient retrieves clothing No items: Patient applies/removes LE N/A prosthesis or orthosis: Lower Body Dressing FIM Score 3. Moderate Assistance (Patient = 50% or more) - Labs CBC & Chem 7: 02/15/19 06:40 02/15/19 06:40 Labs: Laboratory Results - last 72 hr 02/13/19 02/13/19 02/13/19 12:44 17:06 20:57 WBC RBC Hgb Hct MCV MCH MCHC RDW Plt Count Sodium Potassium Chloride Carbon Dioxide Anion Gap BUN Creatinine Estimated GFR BUN/Creatinine Ratio Glucose POC Glucose 150 H 163 H 151 H Calcium 02/14/19 02/14/19 02/14/19 07:28 11:36 16:30 WBC RBC Hgb Hct MCV MCH MCHC RDW Plt Count Sodium Potassium Chloride Carbon Dioxide Anion Gap BUN Creatinine Estimated GFR BUN/Creatinine Ratio Glucose POC Glucose 160 H 111 H 158 H Calcium 02/14/19 02/15/19 02/15/19 22:09 06:40 06:40 WBC 5.3 RBC 3.84 Hgb 9.1 L Hct 30.0 L MCV 78 L MCH 24 L MCHC 31 RDW 22.7 H Plt Count 225 Sodium 138 Potassium 3.9 Chloride 97.2 L Carbon Dioxide 27 Anion Gap 18 BUN 27 H Creatinine 0.6 L Estimated GFR > 60 BUN/Creatinine Ratio 45 Glucose 92 POC Glucose 119 H Calcium 8.5 02/15/19 02/15/19 02/15/19 11:28 17:19 21:10 WBC RBC Hgb Hct MCV MCH MCHC RDW Plt Count Sodium Potassium Chloride Carbon Dioxide Anion Gap BUN Creatinine Estimated GFR BUN/Creatinine Ratio Glucose POC Glucose 86 118 H 211 H Calcium Assessment and Plan Left BKA: Continue supportive care. We'll continue to work with therapy on transfers in order to facilitate safe transition home. At this point based on the patient's comorbidities it does not appear that she will be a good candidate for a prosthesis. We will likely discharge home at wheelchair level. Atrial fibrillation: Need to improve rate control. Tachycardic 120s. Eliquis for anticoagulation. Cardiology consult. Cellulitis right knee: keflex, monitor COPD: Continue respiratory support with prednisone and inhalers. DuoNeb. Respiratory therapy eval and nasal cannula for oxygen. CHF: Continue diuresis, monitor renal function, continue Entresto - consult Paul. Heart. Hypertension: Continue medications and adjust as needed, improving currently. Diabetes, poorly controlled: Continue controlled carb diet, continue insulin monitor and adjust as needed Coronary artery disease: ASA and plavix d/c'd due to thrombocytopenia and minor bleeding. Monitor for any signs of bleeding. Monitor for any chest pain or cardiac symptoms. Peripheral vascular disease: monitor for any signs of bleeding. Monitor H&H. Off antiplatelets due to thrombocytopenia DVT R brachial vein: Discussed risk and benefits with patient, confirmed with Doppler, started Eliquis. Monitor for any signs of bleeding. Hgb stable Morbid obesity: Discussed weight loss, lifestyle change, dietary modification Suspected pneumonia: Completed Levaquin. Short course mucomyst MRSA bacteremia: Completed vancomycin. D/C isolation. Last blood culture was negative Anxiety/depression: continue Xanax and Paxil Skin: continue juancho-care Right shoulder pain: Chronic in nature. Speed's POS. Voltaren gel, modalities. Pain improved Z73.6 ADL dysfunction: OT will work on improving ability to perform ADLs (including assistive devices) to increase independence and decrease caregiver burden and improve functional transfers and mobility training. R26.2 Difficulty walking: PT will work on gait training and proper use of assistive devices and advance as appropriate to use of stairs and outside ambulation on uneven surfaces. R26.81 Unsteadiness on feet: PT will work on improving static and dynamic sitting and standing balance as well as proper use of assistive devices to decrease risk of falls. R26.89 Abnormality of gait: PT will work to improve safety and efficiency of gait through neuromotor training and gait training along with instruction on proper use of assistive devices. M62.81 Muscle weakness: PT & OT will work on strengthening exercises to improve functional strength including mixture of closed and open kinetic chain exercises. R53.81 Debility: PT & OT will work on improving overall functional status to improve participation with ADLs, mobility and social involvement. R53.83 Fatigue: PT & OT will work on improving endurance through aerobic exercises and therapeutic activity while monitoring patients tolerance for activity and vital signs as needed. DVT ppx: Started on Eliquis for RUE DVT Pain: Continue physical modalities in therapy and pain medications as needed to achieve functional pain control. Patient remains on Percocet for chronic pain Sleep: Monitor and address as needed. Melatonin Bowel: Monitor and address as needed. Appetite: Monitor and address as needed. Discharge planning: Pending therapy progress and care plan meeting. Will continue discussion with therapy team, SW, patient and family. Plan for 02/19 d/c...not sure family will be able to provide care - will likely need SNF Restrictions/ Precautions: Falls, cardiac WB status: FWB Functional Hx: ADLs: Needed assistance Cognition: Ind Mobility: RW Barriers to Discharge: Decreased mobility and ability to perform self care, balance deficits, weakness Estimated Length of Stay: 1014 days Discharge Destination: Home with family
[2019-02-16] MEDS: XANAX PO PRN (09:35)
--- NOTE | 2019-02-16 09:58 | Progress Note ---
<MAMADOU ATKINS - Last Filed: 02/16/19 09:57> Assessment and Plan s/p left BKA Thrombocytopenia Permanent Atrial fib/flutter on metoprolol and amiodarone for rate control on eliquis for oral anticoagulation therapy. Ischemic cardiomyopathy with EF 30-35% CAD s/p 3v CABG in 2013 Cor Pulmonale COPD Tobacco abuse Htn DM PAD Chronic non-compliance with medical therapy and medical follow up Recommendations: Continue medical therapy for ischemic cardiomyopathy, coronary artery disease. Continue digoxin, amiodarone and metoprolol for optimal rate control of her Afib. We will add remote telemetry. Subjective Date of service: 02/16/19 Principal diagnosis: Left BKA, debility Interval history: Patient has no complaints. She denies shortness of breath, chest pain and palpitations. Objective Vital Signs Temp Pulse Pulse Pulse Resp Resp Resp 02/16/19 09:11 117 H 20 02/16/19 09:00 02/16/19 06:40 17 02/16/19 05:45 122 H 02/16/19 05:41 122 H 02/16/19 05:40 17 02/16/19 04:19 98.0 F 122 H 19 02/16/19 01:34 17 02/16/19 00:34 16 02/16/19 00:33 112 H 02/16/19 00:18 68 02/15/19 22:00 02/15/19 20:42 02/15/19 20:40 122 H 17 02/15/19 20:02 17 02/15/19 20:00 18 02/15/19 19:45 98.2 F 122 H 18 02/15/19 17:30 98.2 F 120 H 22 02/15/19 15:32 20 02/15/19 14:21 125 H 20 02/15/19 12:19 97.1 F L 127 H 22 02/15/19 11:08 20 Resp BP BP Pulse Ox 02/16/19 09:11 02/16/19 09:00 98 02/16/19 06:40 02/16/19 05:45 112/70 02/16/19 05:41 112/75 02/16/19 05:40 02/16/19 04:19 110/75 97 02/16/19 01:34 02/16/19 00:34 02/16/19 00:33 111/66 02/16/19 00:18 100/45 02/15/19 22:00 17 02/15/19 20:42 99 02/15/19 20:40 02/15/19 20:02 02/15/19 20:00 98 02/15/19 19:45 100/45 97 02/15/19 17:30 109/67 02/15/19 15:32 02/15/19 14:21 02/15/19 12:19 111/67 97 02/15/19 11:08 - Physical Examination General: No Apparent Distress, Other (obese) HEENT: Positive: PERRL Neck: Positive: trachea midline Cardiac: Positive: irregularly irregular Lungs: Positive: Decreased Breath Sounds Neuro: Positive: Grossly Intact Abdomen: Positive: Active Bowel Sounds Extremities: Present: Other (left BKA) <JANAE FRASER - Last Filed: 02/16/19 10:41> Assessment and Plan I've seen and evaluated the patient and with the assessment and plan. I recommend continued medical therapy for ischemic cardiomyopathy and coronary artery disease. The patient is very difficult to adequately rate control in the setting of her permanent atrial fibrillation. Patient is currently on digoxin, amiodarone, and metoprolol. We will restart telemetry to evaluate heart rate Objective Vital Signs Temp Pulse Pulse Pulse Resp Resp Resp 02/16/19 09:11 117 H 02/16/19 09:00 02/16/19 06:40 02/16/19 05:45 122 H 02/16/19 05:41 122 H 02/16/19 05:40 02/16/19 04:19 98.0 F 122 H 19 02/16/19 01:34 17 02/16/19 00:34 16 02/16/19 00:33 112 H 02/16/19 00:18 68 02/15/19 22:00 02/15/19 20:42 02/15/19 20:40 122 H 02/15/19 20:02 17 02/15/19 20:00 18 02/15/19 19:45 98.2 F 122 H 18 02/15/19 17:30 98.2 F 120 H 22 02/15/19 15:32 20 02/15/19 14:21 125 H 20 02/15/19 12:19 97.1 F L 127 H 22 02/15/19 11:08 20 Resp BP BP Pulse Ox 02/16/19 09:11 02/16/19 09:00 98 02/16/19 06:40 02/16/19 05:45 112/70 02/16/19 05:41 112/75 02/16/19 05:40 02/16/19 04:19 110/75 97 02/16/19 01:34 02/16/19 00:34 02/16/19 00:33 111/66 02/16/19 00:18 100/45 02/15/19 22:00 17 02/15/19 20:42 99 02/15/19 20:40 02/15/19 20:02 02/15/19 20:00 98 02/15/19 19:45 100/45 97 02/15/19 17:30 109/67 02/15/19 15:32 02/15/19 14:21 02/15/19 12:19 111/67 97 02/15/19 11:08
[2019-02-16] MEDS: THERAGRAN-M Tab PO SCH (12:31)
[2019-02-16] MEDS: KEFLEX PO SCH ×2 (12:39→21:22)
[2019-02-16] MEDS: CORDARONE PO SCH ×2 (12:40→21:24)
[2019-02-16] MEDS: VITAMIN C PO SCH ×2 (16:38→21:24)
[2019-02-16] MEDS: ZINC SULFATE PO SCH ×2 (16:39→21:23)
[2019-02-16] MEDS: PAXIL PO SCH (16:39)
[2019-02-16] MEDS: ELIQUIS PO SCH ×2 (16:40→21:23)
--- NOTE | 2019-02-16 19:03 | Progress Note ---
Assessment and Plan - Patient Problems (1) Abdominal pain Current Visit: No Status: Acute Qualifiers: Abdominal location: generalized Qualified Code(s): R10.84 - Generalized abdominal pain Plan to address problem: pain control. (2) Anal wart Current Visit: No Status: Acute Plan to address problem: local tx, or ID eval. (3) Atrial flutter Current Visit: No Status: Acute Plan to address problem: follow cardiology. (4) Congestive cardiomyopathy Current Visit: No Status: Acute Plan to address problem: follow cardiology. (5) DVT prophylaxis Current Visit: No Status: Acute Plan to address problem: continue as current. (6) Anemia Current Visit: Yes Status: Acute Plan to address problem: See notes section. stable. (7) Thrombocytopenia Current Visit: Yes Status: Acute Plan to address problem: see notes section. probably infection in the wound related, vs nutrition, iron is low, B12 low end of NL. other etiology, is the vancomycin. Normalized. Subjective Date of service: 02/16/19 Principal diagnosis: Left BKA, debility Interval history: patient seen/examined, resting in bed, NAD, labs reviewed.PLT dropped by additional 2K., still no bleeding. patient seen/examined, resting in bed, records reviewed. No new issues at this time. Patient seen/examined, resting in bed, labs reviewed, case d/w patient Patient seen/examined, resting in bed labs reviewed, case d/w patient. Will continue to follow you. patient seen, resting in bed, lates labs reviewed.No new issues at this time. Patient seen/examined, resting in bed, labs reviewed, Iron labs ordered. Patient seen/resting in bed, labs reviewed. NAD at this time. Patient seen/examined, resting in bed, labs reviewed, case d/w patient, Temp 100.2, tylenol will be given. Patient seen, resting in bed, labs reviewed, no new issues at this time. Patient seen, resting in bed, records reviewed, no new issues at this time. Patient seen/examined, resting in bed, records reviewed. Objective - Constitutional Vitals: Vital Signs - 12hr 02/16/19 02/16/19 02/16/19 09:00 09:11 15:53 Pulse Rate [ 117 H 119 H Anterior Bilateral Throughout] Pulse Rate [ 119 H Posterior Bilateral Throughout] Respiratory 20 18 Rate [Anterior Bilateral Throughout] Respiratory 18 Rate [Posterior Bilateral Throughout] O2 Sat by Pulse 98 Oximetry General appearance: Present: mild distress, well-nourished - EENT Eyes: PERRL, EOM intact ENT: hearing intact, clear oral mucosa Ears: bilateral: normal - Neck Neck: supple, normal ROM - Respiratory Respiratory effort: normal Respiratory: bilateral: CTA - Breasts Breasts: deferred - Cardiovascular Rhythm: regular Heart Sounds: Present: S1 & S2. Absent: gallop, rub Extremities: pulses intact, No edema, normal color, Full ROM - Gastrointestinal General gastrointestinal: Present: soft, non-tender, non-distended, normal bowel sounds Rectal Exam: deferred - Genitourinary Female genitourinary: deferred - Integumentary Integumentary: clear, warm, dry - Musculoskeletal Musculoskeletal: 1, strength equal bilaterally - Neurologic Neurologic: moves all extremities - Psychiatric Psychiatric: memory intact, appropriate mood/affect, intact judgment & insight - Labs CBC & Chem 7: 02/15/19 06:40 02/15/19 06:40 Labs: Abnormal lab results 02/15/19 Range/Units 21:10 POC Glucose 211 H (70-105)
[2019-02-16] MEDS: ENTRESTO 24 - 26 MG PO SCH ×2 (19:26→21:24)
[2019-02-16] MEDS: LANOXIN PO SCH (19:27)
[2019-02-16] MEDS: MELATONIN PO SCH (21:23)
[2019-02-16] MEDS: LANTUS SUB-Q SCH (21:49)
[2019-02-17] MEDS: NEURONTIN PO SCH ×4 (00:08→17:56)
[2019-02-17] MEDS: PERCOCET 5/325 PO PRN ×5 (00:08→20:30)
[2019-02-17] MEDS: LOPRESSOR PO SCH ×4 (00:09→21:53)
[2019-02-17] MEDS: XANAX PO PRN ×3 (00:11→21:38)
[2019-02-17] MEDS: LASIX PO SCH ×2 (05:31→17:54)
[2019-02-17 07:09] LABS: Hematocrit 29.2 % (30.3-42.9); Hemoglobin 8.9 gm/dl (10.1-14.3); Mean Corpuscular HGB Conc 31 % (30-34); Mean Corpuscular Volume 79 fl (79-97); Platelet Count 221 K/mm3 (140-440); Red Blood Count 3.72 M/mm3 (3.65-5.03)
[2019-02-17 07:20] LABS: Red Cell Distribution Width 22.5 % (13.2-15.2)
[2019-02-17 07:22] LABS: BUN/Creatinine Ratio 60; Blood Urea Nitrogen 24 mg/dL (7-17); Calcium 8.1 mg/dL (8.4-10.2); Hemolysis Index 0
[2019-02-17] MEDS: DICLOFENAC 1% TP SCH ×3 (07:28→21:43)
[2019-02-17] MEDS: HumaLOG SUB-Q SCH ×4 (07:31→21:55)
[2019-02-17] MEDS: THERAGRAN-M Tab PO SCH (08:53)
[2019-02-17] MEDS: ZINC SULFATE PO SCH ×2 (08:53→21:39)
[2019-02-17] MEDS: VITAMIN C PO SCH ×2 (08:54→21:39)
[2019-02-17] MEDS: PAXIL PO SCH (08:55)
[2019-02-17] MEDS: ENTRESTO 24 - 26 MG PO SCH ×2 (08:55→21:49)
[2019-02-17] MEDS: CORDARONE PO SCH ×2 (08:55→21:45)
--- NOTE | 2019-02-17 08:58 | Progress Note ---
Assessment and Plan s/p left BKA Thrombocytopenia Permanent Atrial fib/flutter on digoxin, metoprolol and amiodarone for rate control on eliquis for oral anticoagulation therapy. Ischemic cardiomyopathy with EF 30-35% CAD s/p 3v CABG in 2013 Cor Pulmonale COPD Tobacco abuse Htn DM PAD Chronic non-compliance with medical therapy and medical follow up Recommendations: Continue medical therapy for ischemic cardiomyopathy, coronary artery disease. Continue digoxin, amiodarone and metoprolol for optimal rate control of her Afib. Subjective Date of service: 02/17/19 Principal diagnosis: Left BKA, debility Interval history: Patient has no cardiac complaints. Objective Vital Signs Temp Pulse Pulse Pulse Resp Resp Resp 02/17/19 08:06 98.0 F 117 H 18 02/17/19 06:30 17 02/17/19 05:31 103 H 02/17/19 05:30 17 02/17/19 05:22 96.6 F L 103 H 17 02/17/19 01:13 97.8 F 119 H 02/17/19 00:09 119 H 02/17/19 00:08 17 02/16/19 20:58 02/16/19 20:56 63 18 02/16/19 20:47 97.9 F 120 H 20 02/16/19 19:46 19 02/16/19 19:27 120 H 02/16/19 15:53 119 H 119 H 18 18 02/16/19 12:00 98.2 F 119 H 20 02/16/19 09:11 117 H 20 02/16/19 09:00 BP BP Pulse Ox 02/17/19 08:06 119/65 98 02/17/19 06:30 02/17/19 05:31 115/60 02/17/19 05:30 02/17/19 05:22 115/60 100 02/17/19 01:13 127/76 02/17/19 00:09 127/76 02/17/19 00:08 02/16/19 20:58 93 02/16/19 20:56 02/16/19 20:47 94/55 97 02/16/19 19:46 96 02/16/19 19:27 02/16/19 15:53 02/16/19 12:00 99/63 97 02/16/19 09:11 02/16/19 09:00 98 - Physical Examination General: No Apparent Distress, Other (obese) HEENT: Positive: PERRL Neck: Positive: trachea midline Cardiac: Positive: irregularly irregular Lungs: Positive: Decreased Breath Sounds Neuro: Positive: Grossly Intact Abdomen: Positive: Active Bowel Sounds Extremities: Present: Other (left BKA) - Labs and Meds CBC 02/17/19 Range/Units 06:58 WBC 4.9 (4.5-11.0) K/mm3 RBC 3.72 (3.65-5.03) M/mm3 Hgb 8.9 L (10.1-14.3) gm/dl Hct 29.2 L (30.3-42.9) % Plt Count 221 (140-440) K/mm3 Comprehensive Metabolic Panel 02/17/19 Range/Units 06:58 Sodium 139 (137-145) mmol/L Potassium 4.2 (3.6-5.0) mmol/L Chloride 100.4 (98-107) mmol/L Carbon Dioxide 27 (22-30) mmol/L BUN 24 H (7-17) mg/dL Creatinine 0.4 L (0.7-1.2) mg/dL Glucose 98 (65-100) mg/dL Calcium 8.1 L (8.4-10.2) mg/dL
[2019-02-17] MEDS: KEFLEX PO SCH (09:01)
[2019-02-17] MEDS: ELIQUIS PO SCH ×2 (09:01→21:39)
[2019-02-17] MEDS: DUONEB *Not for PRN Use IH SCH ×3 (09:37→20:32)
--- NOTE | 2019-02-17 09:55 | Progress Note ---
Subjective Date of service: 02/17/19 Principal diagnosis: Left BKA, debility Interval history: 58-year-old female with recent history of a left BKA revision started to develop extreme pain in the legs and buttocks along with tachycardia. At the ER she was found to have atrial fibrillation with RVR. Her reports she was supposed to be on amiodarone was apparently noncompliant with this. She was started on amiodarone drip. She developed an acute mental status change but workup was negative for any acute changes. She is transferred to the ICU placed on BiPAP with some improvements noted. She developed MRSA bacteremia and was started on vancomycin. On 01/21 she was noted to have a right brachial DVT and was placed on a heparin drip. This was not seen in paperwork that we reviewed prior to admission and she was not transferred on any anticoagulation. There was mention under atrial fibrillation that she was not a good candidate for anticoagulation, however with both atrial fibrillation and a DVT she is at a higher risk for an embolic event. Discussed with the patient risks and benefits and have started her on Eliquis. She continued to have persistent respiratory issues with w heezing and shortness of breath. She was started on Entresto along with IV steroids and is now on oral steroid wean. Patient is participating in therapy and making progress. Taking rest breaks as needed. +BM. Denies palpitations, N/V, diarrhea. . BP improved. Tachycardic in the 120s. Legs weeping, lymphedema wrap in place. Discussed discharge plan with patient, likely SNF. Right knee pain better. Continue short course of keflex. Continue to monitor. Cardiology restarted telemetry, will need to d/c. All records, vitals, labs and medications were reviewed. No other issues per p atient, nursing or therapy. Objective - Exam Narrative Exam: MUSCULOSKELETAL SPECIALTY EXAM CONSTITUTIONAL: Well developed, well nourished, appropriately groomed, obese EENT: EOMI. Hearing intact to soft voice RESPIRATORY: CTA bilaterally, slightly better, no increased work of breathing, on nasal cannula CARDIOVASCULAR: Regular Rhythm, tachycardic, no tenderness in BUE or BLE. 3+ pitting edema in RLE, but better on LLE. All extremities warm. No bleeding noted today GI: + bowel sounds, soft, NTTP, nondistended, protuberant INTEGUMENTARY: Widespread bruising, sores, and lesions, no rash or masses noted in extremities. Redness on sacral area, not pressure wound. Warty growth in juancho area MUSCULOSKELETAL: Right knee better, decrease swelling, otherwise BUE and BLE normal without defect, crepitus, subluxation, effusion, arthritic changes or TTP except for Left BKA and right toe amputations as noted. BUE 4/5, good ROM, with normal tone. BLE 3/5 decreased ROM, with normal tone NEURO: CN 2-12 grossly intact. Sensation intact but altered in all extremities. No tremor noted in 4 extremities. POSTURE and GAIT: Sitting posture and fair. Balance appears poor. Standing balance is poor. PSYCH: Alert, oriented x3, affect appears anxious. Insight appears intact. - Constitutional Vitals: Vital Signs - 12hr 02/17/19 02/17/19 02/17/19 00:08 00:09 01:13 Temperature 36.6 C Pulse Rate 119 H 119 H Respiratory 17 Rate Blood Pressure 127/76 Blood Pressure 127/76 [Right] O2 Sat by Pulse Oximetry 02/17/19 02/17/19 02/17/19 05:22 05:30 05:31 Temperature 35.9 C L Pulse Rate 103 H 103 H Respiratory 17 17 Rate Blood Pressure 115/60 Blood Pressure 115/60 [Right] O2 Sat by Pulse 100 Oximetry 02/17/19 02/17/19 02/17/19 06:30 08:06 09:39 Temperature 36.7 C Pulse Rate 117 H Respiratory 17 18 Rate Blood Pressure 119/65 Blood Pressure [Right] O2 Sat by Pulse 98 96 Oximetry - Allied health notes Allied health notes reviewed: nursing, PT, OT FIMS assessment as documented by PT/OT/ST: Grooming Patient cleans teeth/dentures: Yes Patient epperson/brushes hair: Yes Patient washes, rinses and Yes dries face: Patient washes, rinses and Yes dries hands: Patient shaves: No Patient applies make-up: No Patient performs (no make-up/ / (100%) shaving): Grooming FIM Score 4. Minimal Assistance (Patient = 75% or more. Needs touching.) Social interaction/Memory/Problem solving Social Interaction FIM Score 6. Mod. [place] (Mostly appropriate. May need meds. No supv.) Memory FIM Score 6. Modified [place](Mild difficulty remembering people/routines.) Problem Solving FIM Score 5. Supervision (Needs cueing <10% to solve routine problems.) Transfers Mode of Locomotion: Wheelchair Bed/Chair/Wheelchair Transfers 4. Minimal Assistance (Patient = 75% or more. FIM Score Needs touching.) Locomotion- Stairs Stairs FIM Score 0. Activity does not occur Locomotion- walk/wheelchair Most Frequent Mode of Wheelchair Locomotion: Ambulation Distance 0 Walking FIM Score 0. Activity does not occur Wheelchair Propulsion Distance 100 Wheelchair FIM Score 4. Minimal Assistance (Patient = 75% or more. Minimum of 150 ft.) Eating Eating FIM Score 7. Complete [place] (Cuts meat, opens containers, regular diet.) Dressing-Upper body Patient retrieves clothing No items: Patient applies/removes UE No prosthesis or orthosis: Upper Body Dressing FIM Score 4. Minimal Assistance (Patient = 75% or more. Needs touching.) Dressing-lower body Lower Body Dressing Device Boss Miner/Stick,Sock Aid Patient retrieves clothing No items: Patient applies/removes LE N/A prosthesis or orthosis: Lower Body Dressing FIM Score 3. Moderate Assistance (Patient = 50% or more) - Labs CBC & Chem 7: 02/17/19 06:58 02/17/19 06:58 Labs: Laboratory Results - last 72 hr 02/14/19 02/14/19 02/14/19 11:36 16:30 22:09 WBC RBC Hgb Hct MCV MCH MCHC RDW Plt Count Sodium Potassium Chloride Carbon Dioxide Anion Gap BUN Creatinine Estimated GFR BUN/Creatinine Ratio Glucose POC Glucose 111 H 158 H 119 H Calcium 02/15/19 02/15/19 02/15/19 06:40 06:40 11:28 WBC 5.3 RBC 3.84 Hgb 9.1 L Hct 30.0 L MCV 78 L MCH 24 L MCHC 31 RDW 22.7 H Plt Count 225 Sodium 138 Potassium 3.9 Chloride 97.2 L Carbon Dioxide 27 Anion Gap 18 BUN 27 H Creatinine 0.6 L Estimated GFR > 60 BUN/Creatinine Ratio 45 Glucose 92 POC Glucose 86 Calcium 8.5 02/15/19 02/15/19 02/16/19 17:19 21:10 21:52 WBC RBC Hgb Hct MCV MCH MCHC RDW Plt Count Sodium Potassium Chloride Carbon Dioxide Anion Gap BUN Creatinine Estimated GFR BUN/Creatinine Ratio Glucose POC Glucose 118 H 211 H 176 H Calcium 02/17/19 02/17/19 02/17/19 06:58 06:58 08:10 WBC 4.9 RBC 3.72 Hgb 8.9 L Hct 29.2 L MCV 79 MCH 24 L MCHC 31 RDW 22.5 H Plt Count 221 Sodium 139 Potassium 4.2 Chloride 100.4 Carbon Dioxide 27 Anion Gap 16 BUN 24 H Creatinine 0.4 L Estimated GFR > 60 BUN/Creatinine Ratio 60 Glucose 98 POC Glucose 97 Calcium 8.1 L Assessment and Plan Left BKA: Continue supportive care. We'll continue to work with therapy on transfers in order to facilitate safe transition home. At this point based on the patient's comorbidities it does not appear that she will be a good candidate for a prosthesis. We will likely discharge home at wheelchair level. Atrial fibrillation: Need to improve rate control. Tachycardic 120s. Eliquis for anticoagulation. Cardiology consult. Cellulitis right knee: keflex, monitor COPD: Continue respiratory support with prednisone and inhalers. DuoNeb. Respi ratory therapy eval and nasal cannula for oxygen. CHF: Continue diuresis, monitor renal function, continue Entresto - consult Paul. Heart. Hypertension: Continue medications and adjust as needed, improving currently. Diabetes, poorly controlled: Continue controlled carb diet, continue insulin mo nitor and adjust as needed Coronary artery disease: ASA and plavix d/c'd due to thrombocytopenia and minor bleeding. Monitor for any signs of bleeding. Monitor for any chest pain or cardiac symptoms. Peripheral vascular disease: monitor for any signs of bleeding. Monitor H&H. Off antiplatelets due to thrombocytopenia DVT R brachial vein: Discussed risk and benefits with patient, confirmed with Doppler, started Eliquis. Monitor for any signs of bleeding. Hgb stable Morbid obesity: Discussed weight loss, lifestyle change, dietary modification Suspected pneumonia: Completed Levaquin. Short course mucomyst MRSA bacteremia: Completed vancomycin. D/C isolation. Last blood culture was negative Anxiety/depression: continue Xanax and Paxil Skin: continue juancho-care Right shoulder pain: Chronic in nature. Speed's POS. Voltaren gel, modalities. Pain improved Z73.6 ADL dysfunction: OT will work on improving ability to perform ADLs (including assistive devices) to increase independence and decrease caregiver burden and improve functional transfers and mobility training. R26.2 Difficulty walking: PT will work on gait training and proper use of assistive devices and advance as appropriate to use of stairs and outside ambulation on uneven surfaces. R26.81 Unsteadiness on feet: PT will work on improving static and dynamic sitting and standing balance as well as proper use of assistive devices to decrease risk of falls. R26.89 Abnormality of gait: PT will work to improve safety and efficiency of gait through neuromotor training and gait training along with instruction on proper use of assistive devices. M62.81 Muscle weakness: PT & OT will work on strengthening exercises to improve functional strength including mixture of closed and open kinetic chain exercises. R53.81 Debility: PT & OT will work on improving overall functional status to improve participation with ADLs, mobility and social involvement. R53.83 Fatigue: PT & OT will work on improving endurance through aerobic exercises and therapeutic activity while monitoring patients tolerance for activity and vital signs as needed. DVT ppx: Started on Eliquis for RUE DVT Pain: Continue physical modalities in therapy and pain medications as needed to achieve functional pain control. Patient remains on Percocet for chronic pain Sleep: Monitor and address as needed. Melatonin Bowel: Monitor and address as needed. Appetite: Monitor and address as needed. Discharge planning: Pending therapy progress and care plan meeting. Will continue discussion with therapy team, SW, patient and family. Plan for 02/19 d/c...not sure family will be able to provide care - will likely need SNF Restrictions/ Precautions: Falls, cardiac WB status: FWB Functional Hx: ADLs: Needed assistance Cognition: Ind Mobility: RW Barriers to Discharge: Decreased mobility and ability to perform self care, balance deficits, weakness Estimated Length of Stay: 1014 days Discharge Destination: Home with family
[2019-02-17] MEDS: CARDIZEM PO SCH ×2 (12:08→17:36)
--- NOTE | 2019-02-17 18:21 | Progress Note ---
Assessment and Plan - Patient Problems (1) Abdominal pain Current Visit: No Status: Acute Qualifiers: Abdominal location: generalized Qualified Code(s): R10.84 - Generalized abdominal pain Plan to address problem: pain control. (2) Anal wart Current Visit: No Status: Acute Plan to address problem: local tx, or ID eval. (3) Atrial flutter Current Visit: No Status: Acute Plan to address problem: follow cardiology. (4) Congestive cardiomyopathy Current Visit: No Status: Acute Plan to address problem: follow cardiology. (5) DVT prophylaxis Current Visit: No Status: Acute Plan to address problem: continue as current. (6) Anemia Current Visit: Yes Status: Acute Plan to address problem: See notes section. stable. (7) Thrombocytopenia Current Visit: Yes Status: Acute Plan to address problem: see notes section. probably infection in the wound related, vs nutrition, iron is low, B12 low end of NL. other etiology, is the vancomycin. Normalized. Subjective Date of service: 02/17/19 Principal diagnosis: Left BKA, debility Interval history: patient seen/examined, resting in bed, NAD, labs reviewed.PLT dropped by additional 2K., still no bleeding. patient seen/examined, resting in bed, records reviewed. No new issues at this time. Patient seen/examined, resting in bed, labs reviewed, case d/w patient Patient seen/examined, resting in bed labs reviewed, case d/w patient. Will continue to follow you. patient seen, resting in bed, lates labs reviewed.No new issues at this time. Patient seen/examined, resting in bed, labs reviewed, Iron labs ordered. Patient seen/resting in bed, labs reviewed. NAD at this time. Patient seen/examined, resting in bed, labs reviewed, case d/w patient, Temp 100.2, tylenol will be given. Patient seen, resting in bed, labs reviewed, no new issues at this time. Patient seen, resting in bed, records reviewed, no new issues at this time. Patient seen/examined, resting in bed, records reviewed. Patient seen/examined, resting in bed, labs reviewed, and ok , no new issues at this time, she continues with her rehab activities ok I will recomend daily lab draws, as this will eventually deplete her hgb level, and warranting unnecessary transfusion replacement therapy. Objective - Constitutional Vitals: Vital Signs - 12hr 02/17/19 02/17/19 02/17/19 06:30 08:06 09:39 Temperature 98.0 F Pulse Rate 117 H Pulse Rate [ Anterior Bilateral Throughout] Respiratory 17 18 Rate Respiratory Rate [Anterior Bilateral Throughout] Blood Pressure 119/65 O2 Sat by Pulse 98 96 Oximetry 02/17/19 02/17/19 09:54 11:42 Temperature 98.0 F Pulse Rate 125 H Pulse Rate [ 125 H Anterior Bilateral Throughout] Respiratory 18 Rate Respiratory 20 Rate [Anterior Bilateral Throughout] Blood Pressure 115/72 O2 Sat by Pulse 93 Oximetry General appearance: Present: mild distress, well-nourished - EENT Eyes: PERRL, EOM intact ENT: hearing intact, clear oral mucosa Ears: bilateral: normal - Neck Neck: supple, normal ROM - Respiratory Respiratory effort: normal Respiratory: bilateral: CTA - Breasts Breasts: deferred - Cardiovascular Rhythm: regular Heart Sounds: Present: S1 & S2. Absent: gallop, rub Extremities: pulses intact, No edema, normal color, Full ROM - Gastrointestinal General gastrointestinal: Present: soft, non-tender, non-distended, normal bowel sounds Rectal Exam: deferred - Genitourinary Female genitourinary: deferred - Integumentary Integumentary: clear, warm, dry - Musculoskeletal Musculoskeletal: 1, strength equal bilaterally - Neurologic Neurologic: moves all extremities - Psychiatric Psychiatric: memory intact, appropriate mood/affect, intact judgment & insight - Labs CBC & Chem 7: 02/17/19 06:58 02/17/19 06:58 Labs: Abnormal lab results 02/16/19 02/17/19 02/17/19 Range/Units 21:52 06:58 06:58 Hgb 8.9 L (10.1-14.3) gm/dl Hct 29.2 L (30.3-42.9) % MCH 24 L (28-32) pg RDW 22.5 H (13.2-15.2) % BUN 24 H (7-17) mg/dL Creatinine 0.4 L (0.7-1.2) mg/dL POC Glucose 176 H (70-105) Calcium 8.1 L (8.4-10.2) mg/dL 02/17/19 02/17/19 Range/Units 11:49 16:50 Hgb (10.1-14.3) gm/dl Hct (30.3-42.9) % MCH (28-32) pg RDW (13.2-15.2) % BUN (7-17) mg/dL Creatinine (0.7-1.2) mg/dL POC Glucose 137 H 138 H (70-105) Calcium (8.4-10.2) mg/dL
[2019-02-17] MEDS: LANTUS SUB-Q SCH (21:34)
[2019-02-17] MEDS: MELATONIN PO SCH (21:37)
[2019-02-18] MEDS: PERCOCET 5/325 PO PRN ×4 (00:15→20:20)
[2019-02-18] MEDS: NEURONTIN PO SCH ×5 (00:16→23:18)
[2019-02-18] MEDS: CARDIZEM PO SCH ×5 (00:19→23:17)
[2019-02-18] MEDS: LASIX PO SCH ×2 (06:37→19:21)
[2019-02-18] MEDS: LOPRESSOR PO SCH ×3 (07:09→22:20)
[2019-02-18] MEDS: HumaLOG SUB-Q SCH ×4 (07:17→22:20)
[2019-02-18] MEDS: DICLOFENAC 1% TP SCH ×4 (08:15→22:30)
[2019-02-18] MEDS: ENTRESTO 24 - 26 MG PO SCH ×2 (08:18→22:20)
[2019-02-18] MEDS: DUONEB *Not for PRN Use IH SCH ×3 (08:47→21:59)
--- NOTE | 2019-02-18 08:58 | Progress Note ---
Subjective Date of service: 02/18/19 Principal diagnosis: Left BKA, debility Interval history: 58-year-old female with recent history of a left BKA revision started to develop extreme pain in the legs and buttocks along with tachycardia. At the ER she was found to have atrial fibrillation with RVR. Her reports she was supposed to be on amiodarone was apparently noncompliant with this. She was started on amiodarone drip. She developed an acute mental status change but workup was negative for any acute changes. She is transferred to the ICU placed on BiPAP with some improvements noted. She developed MRSA bacteremia and was started on vancomycin. On 01/21 she was noted to have a right brachial DVT and was placed on a heparin drip. This was not seen in paperwork that we reviewed prior to admission and she was not transferred on any anticoagulation. There was mention under atrial fibrillation that she was not a good candidate for anticoagulation, however with both atrial fibrillation and a DVT she is at a higher risk for an embolic event. Discussed with the patient risks and benefits and have started her on Eliquis. She continued to have persistent respiratory issues with w heezing and shortness of breath. She was started on Entresto along with IV steroids and is now on oral steroid wean. Patient is participating in therapy and making progress. Taking rest breaks as needed. +BM. Denies palpitations, N/V, diarrhea. . BP improved. Tachycardic in the 120s. Legs weeping less, lymphedema wrap in place with significant decrease in swelling. Discussed discharge plan with patient, likely SNF. Right knee pain better. Continue to monitor. Cardiology restarted telemetry, will need to d/c. All records, vitals, labs and medications were reviewed. No other issues per patient, nursing or therapy. Objective - Exam Narrative Exam: MUSCULOSKELETAL SPECIALTY EXAM CONSTITUTIONAL: Well developed, well nourished, appropriately groomed, obese EENT: EOMI. Hearing intact to soft voice RESPIRATORY: CTA bilaterally, slightly better, no increased work of breathing, on nasal cannula CARDIOVASCULAR: Regular Rhythm, tachycardic, no tenderness in BUE or BLE. Improved edema in RLE and LLE. All extremities warm. No bleeding noted today GI: + bowel sounds, soft, NTTP, nondistended, protuberant INTEGUMENTARY: Widespread bruising, sores, and lesions, no rash or masses noted in extremities. Redness on sacral area, not pressure wound. Warty growth in juancho area MUSCULOSKELETAL: Right knee better, decrease swelling, otherwise BUE and BLE normal without defect, crepitus, subluxation, effusion, arthritic changes or TTP except for Left BKA and right toe amputations as noted. BUE 4/5, good ROM, with normal tone. BLE 3/5 decreased ROM, with normal tone NEURO: CN 2-12 grossly intact. Sensation intact but altered in all extremities. No tremor noted in 4 extremities. POSTURE and GAIT: Sitting posture and fair. Balance appears poor. Standing balance is poor. PSYCH: Alert, oriented x3, affect appears anxious. Insight appears intact. - Constitutional Vitals: Vital Signs - 12hr 02/17/19 02/18/19 02/18/19 21:53 00:00 00:19 Temperature 37.1 C Pulse Rate 67 125 H Respiratory 18 Rate Blood Pressure 92/52 97/64 97/64 O2 Sat by Pulse 95 Oximetry 02/18/19 02/18/19 02/18/19 07:06 07:08 07:09 Temperature 36.6 C Pulse Rate 120 H 126 H 126 H Respiratory 20 Rate Blood Pressure 104/53 104/53 104/53 O2 Sat by Pulse 93 Oximetry - Allied health notes Allied health notes reviewed: nursing, PT, OT FIMS assessment as documented by PT/OT/ST: Grooming Patient cleans teeth/dentures: Yes Patient epperson/brushes hair: Yes Patient washes, rinses and Yes dries face: Patient washes, rinses and Yes dries hands: Patient shaves: No Patient applies make-up: No Patient performs (no make-up/ 4/4 (100%) shaving): Grooming FIM Score 4. Minimal Assistance (Patient = 75% or more. Needs touching.) Social interaction/Memory/Problem solving Social Interaction FIM Score 6. Mod. [place] (Mostly appropriate. May need meds. No supv.) Memory FIM Score 6. Modified [place](Mild difficulty remembering people/routines.) Problem Solving FIM Score 5. Supervision (Needs cueing <10% to solve routine problems.) Transfers Mode of Locomotion: Wheelchair Bed/Chair/Wheelchair Transfers 4. Minimal Assistance (Patient = 75% or more. FIM Score Needs touching.) Locomotion- Stairs Stairs FIM Score 0. Activity does not occur Locomotion- walk/wheelchair Most Frequent Mode of Wheelchair Locomotion: Ambulation Distance 0 Walking FIM Score 0. Activity does not occur Wheelchair Propulsion Distance 250 Wheelchair FIM Score 4. Minimal Assistance (Patient = 75% or more. Minimum of 150 ft.) Eating Eating FIM Score 7. Complete [place] (Cuts meat, opens containers, regular diet.) Dressing-Upper body Patient retrieves clothing No items: Patient applies/removes UE No prosthesis or orthosis: Upper Body Dressing FIM Score 4. Minimal Assistance (Patient = 75% or more. Needs touching.) Dressing-lower body Lower Body Dressing Device Tile Layer Drainage/Stick,Sock Aid Patient retrieves clothing No items: Patient applies/removes LE N/A prosthesis or orthosis: Lower Body Dressing FIM Score 3. Moderate Assistance (Patient = 50% or more) - Labs CBC & Chem 7: 02/17/19 06:58 02/17/19 06:58 Labs: Laboratory Results - last 72 hr 02/15/19 02/15/19 02/15/19 11:28 17:19 21:10 WBC RBC Hgb Hct MCV MCH MCHC RDW Plt Count Sodium Potassium Chloride Carbon Dioxide Anion Gap BUN Creatinine Estimated GFR BUN/Creatinine Ratio Glucose POC Glucose 86 118 H 211 H Calcium 02/16/19 02/17/19 02/17/19 21:52 06:58 06:58 WBC 4.9 RBC 3.72 Hgb 8.9 L Hct 29.2 L MCV 79 MCH 24 L MCHC 31 RDW 22.5 H Plt Count 221 Sodium 139 Potassium 4.2 Chloride 100.4 Carbon Dioxide 27 Anion Gap 16 BUN 24 H Creatinine 0.4 L Estimated GFR > 60 BUN/Creatinine Ratio 60 Glucose 98 POC Glucose 176 H Calcium 8.1 L 02/17/19 02/17/19 02/17/19 08:10 11:49 16:50 WBC RBC Hgb Hct MCV MCH MCHC RDW Plt Count Sodium Potassium Chloride Carbon Dioxide Anion Gap BUN Creatinine Estimated GFR BUN/Creatinine Ratio Glucose POC Glucose 97 137 H 138 H Calcium 02/17/19 02/18/19 20:19 07:18 WBC RBC Hgb Hct MCV MCH MCHC RDW Plt Count Sodium Potassium Chloride Carbon Dioxide Anion Gap BUN Creatinine Estimated GFR BUN/Creatinine Ratio Glucose POC Glucose 162 H 93 Calcium Assessment and Plan Left BKA: Continue supportive care. We'll continue to work with therapy on transfers in order to facilitate safe transition. At this point based on the patient's comorbidities it does not appear that she will be a good candidate for a prosthesis. We will likely discharge home at wheelchair level. Atrial fibrillation: Need to improve rate control. Tachycardic 120s. Eliquis for anticoagulation. Cardiology consult. Cellulitis right knee: keflex completed, monitor COPD: Continue respiratory support with prednisone and inhalers. DuoNeb. Respiratory therapy eval and nasal cannula for oxygen. CHF: Continue diuresis, monitor renal function, continue Entresto - consult Paul. Heart. Hypertension: Continue medications and adjust as needed, improving currently. Diabetes, poorly controlled: Continue controlled carb diet, continue insulin monitor and adjust as needed Coronary artery disease: ASA and plavix d/c'd due to thrombocytopenia and minor bleeding. Monitor for any signs of bleeding. Monitor for any chest pain or cardiac symptoms. Peripheral vascular disease: monitor for any signs of bleeding. Monitor H&H. Off antiplatelets due to thrombocytopenia DVT R brachial vein: Discussed risk and benefits with patient, confirmed with Do bautista, started Eliquis. Monitor for any signs of bleeding. Hgb stable Morbid obesity: Discussed weight loss, lifestyle change, dietary modification Suspected pneumonia: Completed Levaquin. Short course mucomyst MRSA bacteremia: Completed vancomycin. D/C isolation. Last blood culture was negative Anxiety/depression: continue Xanax and Paxil Skin: continue juancho-care Right shoulder pain: Chronic in nature. Speed's POS. Voltaren gel, modalities. Pain improved Z73.6 ADL dysfunction: OT will work on improving ability to perform ADLs (including assistive devices) to increase independence and decrease caregiver burden and improve functional transfers and mobility training. R26.2 Difficulty walking: PT will work on gait training and proper use of assistive devices and advance as appropriate to use of stairs and outside ambulation on uneven surfaces. R26.81 Unsteadiness on feet: PT will work on improving static and dynamic sitting and standing balance as well as proper use of assistive devices to decrease risk of falls. R26.89 Abnormality of gait: PT will work to improve safety and efficiency of gait through neuromotor training and gait training along with instruction on proper use of assistive devices. M62.81 Muscle weakness: PT & OT will work on strengthening exercises to improve functional strength including mixture of closed and open kinetic chain exercises. R53.81 Debility: PT & OT will work on improving overall functional status to improve participation with ADLs, mobility and social involvement. R53.83 Fatigue: PT & OT will work on improving endurance through aerobic e xercises and therapeutic activity while monitoring patients tolerance for activity and vital signs as needed. DVT ppx: Started on Eliquis for RUE DVT Pain: Continue physical modalities in therapy and pain medications as needed to achieve functional pain control. Patient remains on Percocet for chronic pain Sleep: Monitor and address as needed. Melatonin Bowel: Monitor and address as needed. Appetite: Monitor and address as needed. Discharge planning: Pending therapy progress and care plan meeting. Will continue discussion with therapy team, SW, patient and family. Plan for 02/19 d/c...not sure family will be able to provide care - will likely need SNF Restrictions/ Precautions: Falls, cardiac WB status: FWB Functional Hx: ADLs: Needed assistance Cognition: Ind Mobility: RW Barriers to Discharge: Decreased mobility and ability to perform self care, balance deficits, weakness Estimated Length of Stay: 1014 days Discharge Destination: Home with family
--- NOTE | 2019-02-18 09:21 | Progress Note ---
Assessment and Plan s/p left BKA Thrombocytopenia Permanent Atrial fib/flutter on diltiazem, metoprolol and amiodarone for rate control on eliquis for oral anticoagulation therapy. Ischemic cardiomyopathy with EF 30-35% CAD s/p 3v CABG in 2013 Cor [place] COPD Tobacco abuse Htn DM PAD Chronic non-compliance with medical therapy and medical follow up Recommendations: Continue medical therapy for ischemic cardiomyopathy, coronary artery disease. Continue diltiazem, amiodarone and metoprolol for optimal rate control of her Afib. Subjective Date of service: 02/18/19 Principal diagnosis: Left BKA, debility Interval history: Patient has no cardiac complaints. Objective Vital Signs Temp Pulse Pulse Pulse Resp Resp Resp 02/18/19 08:58 107 H 120 H 20 02/18/19 07:09 126 H 02/18/19 07:08 126 H 02/18/19 07:06 97.9 F 120 H 20 02/18/19 00:19 02/18/19 00:00 98.7 F 125 H 18 02/17/19 21:53 67 02/17/19 20:33 115 H 20 02/17/19 19:04 97.9 F 123 H 18 02/17/19 11:42 98.0 F 125 H 18 02/17/19 09:54 125 H 20 02/17/19 09:39 BP Pulse Ox 02/18/19 08:58 97 02/18/19 07:09 104/53 02/18/19 07:08 104/53 02/18/19 07:06 104/53 93 02/18/19 00:19 97/64 02/18/19 00:00 97/64 95 02/17/19 21:53 92/52 02/17/19 20:33 98 02/17/19 19:04 92/52 98 02/17/19 11:42 115/72 93 02/17/19 09:54 02/17/19 09:39 96 - Physical Examination General: No Apparent Distress, Other (obese) HEENT: Positive: PERRL Neck: Positive: trachea midline Cardiac: Positive: irregularly irregular Lungs: Positive: Decreased Breath Sounds Neuro: Positive: Grossly Intact Abdomen: Positive: Active Bowel Sounds Extremities: Present: Other (left BKA)
[2019-02-18] MEDS: XANAX PO PRN ×2 (09:29→21:48)
[2019-02-18] MEDS: THERAGRAN-M Tab PO SCH (09:31)
[2019-02-18] MEDS: VITAMIN C PO SCH ×2 (09:31→21:47)
[2019-02-18] MEDS: ZINC SULFATE PO SCH ×2 (09:31→21:47)
[2019-02-18] MEDS: VITAMIN D2 PO SCH (09:32)
[2019-02-18] MEDS: ELIQUIS PO SCH ×2 (09:32→21:50)
[2019-02-18] MEDS: CORDARONE PO SCH ×2 (09:32→21:50)
[2019-02-18] MEDS: PAXIL PO SCH (09:33)
[2019-02-18] MEDS ORDERED: PERCOCET 5/325 PO ONE (13:30)
--- NOTE | 2019-02-18 18:12 | Progress Note ---
Assessment and Plan - Patient Problems (1) Abdominal pain Current Visit: No Status: Acute Qualifiers: Abdominal location: generalized Qualified Code(s): R10.84 - Generalized abdominal pain Plan to address problem: pain control. (2) Anal wart Current Visit: No Status: Acute Plan to address problem: local tx, or ID eval. (3) Atrial flutter Current Visit: No Status: Acute Plan to address problem: follow cardiology. (4) Congestive cardiomyopathy Current Visit: No Status: Acute Plan to address problem: follow cardiology. (5) DVT prophylaxis Current Visit: No Status: Acute Plan to address problem: continue as current. (6) Anemia Current Visit: Yes Status: Acute Plan to address problem: See notes section. stable. (7) Thrombocytopenia Current Visit: Yes Status: Acute Plan to address problem: see notes section. probably infection in the wound related, vs nutrition, iron is low, B12 low end of NL. other etiology, is the vancomycin. Normalized. Subjective Date of service: 02/18/19 Principal diagnosis: Left BKA, debility Interval history: patient seen/examined, resting in bed, NAD, labs reviewed.PLT dropped by additional 2K., still no bleeding. patient seen/examined, resting in bed, records reviewed. No new issues at this time. Patient seen/examined, resting in bed, labs reviewed, case d/w patient Patient seen/examined, resting in bed labs reviewed, case d/w patient. Will continue to follow you. patient seen, resting in bed, lates labs reviewed.No new issues at this time. Patient seen/examined, resting in bed, labs reviewed, Iron labs ordered. Patient seen/resting in bed, labs reviewed. NAD at this time. Patient seen/examined, resting in bed, labs reviewed, case d/w patient, Temp 100.2, tylenol will be given. Patient seen, resting in bed, labs reviewed, no new issues at this time. Patient seen, resting in bed, records reviewed, no new issues at this time. Patient seen/examined, resting in bed, records reviewed. Patient seen/examined, resting in bed, labs reviewed, and ok , no new issues at this time, she continues with her rehab activities ok I will recomend daily lab draws, as this will eventually deplete her hgb level, and warranting unnecessary transfusion replacement therapy. Patient seen/examined, resting in bed, no new labs., No new issues at this time. Objective - Constitutional Vitals: Vital Signs - 12hr 02/18/19 02/18/19 02/18/19 07:06 07:08 07:09 Temperature 97.9 F Pulse Rate 120 H 126 H 126 H Pulse Rate [ Anterior Bilateral Throughout] Pulse Rate [ Posterior Bilateral Throughout] Respiratory 20 Rate Respiratory Rate [Anterior Bilateral Throughout] Respiratory Rate [Posterior Bilateral Throughout] Blood Pressure 104/53 104/53 104/53 Blood Pressure [Right] O2 Sat by Pulse 93 Oximetry 02/18/19 02/18/19 02/18/19 08:58 11:00 15:05 Temperature 98.0 F Pulse Rate 118 H Pulse Rate [ 107 H 122 H Anterior Bilateral Throughout] Pulse Rate [ 120 H Posterior Bilateral Throughout] Respiratory 26 H Rate Respiratory 20 18 Rate [Anterior Bilateral Throughout] Respiratory 22 Rate [Posterior Bilateral Throughout] Blood Pressure 126/66 Blood Pressure [Right] O2 Sat by Pulse 97 96 Oximetry 02/18/19 16:24 Temperature 97.7 F Pulse Rate 121 H Pulse Rate [ Anterior Bilateral Throughout] Pulse Rate [ Posterior Bilateral Throughout] Respiratory 24 Rate Respiratory Rate [Anterior Bilateral Throughout] Respiratory Rate [Posterior Bilateral Throughout] Blood Pressure Blood Pressure 97/58 [Right] O2 Sat by Pulse 100 Oximetry General appearance: Present: mild distress, well-nourished - EENT Eyes: PERRL, EOM intact ENT: hearing intact, clear oral mucosa Ears: bilateral: normal - Neck Neck: supple, normal ROM - Respiratory Respiratory effort: normal Respiratory: bilateral: CTA - Breasts Breasts: deferred - Cardiovascular Rhythm: regular Heart Sounds: Present: S1 & S2. Absent: gallop, rub Extremities: pulses intact, No edema, normal color, Full ROM - Gastrointestinal General gastrointestinal: Present: soft, non-tender, non-distended, normal bowel sounds Rectal Exam: deferred - Genitourinary Female genitourinary: deferred - Integumentary Integumentary: clear, warm, dry - Musculoskeletal Musculoskeletal: 1, strength equal bilaterally - Neurologic Neurologic: moves all extremities - Psychiatric Psychiatric: memory intact, appropriate mood/affect, intact judgment & insight - Labs CBC & Chem 7: 02/17/19 06:58 02/17/19 06:58 Labs: Abnormal lab results 02/17/19 02/18/19 02/18/19 Range/Units 20:19 11:07 16:05 POC Glucose 162 H 125 H 178 H (70-105)
[2019-02-18] MEDS: MELATONIN PO SCH (21:49)
[2019-02-18] MEDS: LANTUS SUB-Q SCH (22:24)
[2019-02-19] MEDS: PERCOCET 5/325 PO PRN ×5 (02:19→21:51)
[2019-02-19] MEDS: LASIX PO SCH ×2 (05:44→18:54)
[2019-02-19] MEDS: NEURONTIN PO SCH ×4 (05:44→23:41)
[2019-02-19] MEDS: LOPRESSOR PO SCH ×3 (05:44→23:41)
[2019-02-19] MEDS: CARDIZEM PO SCH ×3 (05:44→21:49)
--- NOTE | 2019-02-19 07:12 | Progress Note ---
Subjective Date of service: 02/19/19 Principal diagnosis: Left BKA, debility Interval history: 58-year-old female with recent history of a left BKA revision started to develop extreme pain in the legs and buttocks along with tachycardia. At the ER she was found to have atrial fibrillation with RVR. Her reports she was supposed to be on amiodarone was apparently noncompliant with this. She was started on amiodarone drip. She developed an acute mental status change but workup was negative for any acute changes. She is transferred to the ICU placed on BiPAP with some improvements noted. She developed MRSA bacteremia and was started on vancomycin. On 01/21 she was noted to have a right brachial DVT and was placed on a heparin drip. This was not seen in paperwork that we reviewed prior to admission and she was not transferred on any anticoagulation. There was mention under atrial fibrillation that she was not a good candidate for anticoagulation, however with both atrial fibrillation and a DVT she is at a higher risk for an embolic event. Discussed with the patient risks and benefits and have started her on Eliquis. She continued to have persistent respiratory issues with w heezing and shortness of breath. She was started on Entresto along with IV steroids and is now on oral steroid wean. Patient is participating in therapy and making progress. Taking rest breaks as needed. +BM. Denies palpitations, N/V, diarrhea. . Hypotensive this morning. Contacted cardiology and they will decrease Cardizem to q8h. Heart rate normalized. Also discussed general fluids. Have started normal saline 1 L at 75 mL/hour. We will monitor for improvement in blood pressure. Legs weeping less, lymphedema wrap in place with significant decrease in swelling from original however due to removal of wrapping she is increased from previous day. Discussed discharge plan with patient, likely SNF-awaiting acceptance and appropriate paperwork from family. Right knee pain better. Continue to monitor. Cardiology restarted telemetry, have been asked to d/c by telemetry. Patient was discussed in team conference. She is trying and making progress however we are going to be limited by the overall amount of progress able to make due to her decreased strength and deconditioning as well as the cardiac function and the swelling in her legs. We will continue to work with her as much as possible until she is accepted at a care home facility and at that point we'll transition her for further therapy with the hope that some point she will be able to tolerate performing independent transfers which will make it easier for her to transition home. Discussed the plan with the patient as well as her daughter today. We do have a tentative acceptance pending documentation and also gave that information to the daughter. All records, vitals, labs and medications were reviewed. No other issues per patient, nursing or therapy. Objective - Exam Narrative Exam: MUSCULOSKELETAL SPECIALTY EXAM CONSTITUTIONAL: Well developed, well nourished, appropriately groomed, obese EENT: EOMI. Hearing intact to soft voice RESPIRATORY: CTA bilaterally, slightly better, no increased work of breathing, on nasal cannula CARDIOVASCULAR: Regular Rate Rhythm no tenderness in BUE or BLE. Improved edema in RLE and LLE. All extremities warm. No bleeding noted today GI: + bowel sounds, soft, NTTP, nondistended, protuberant INTEGUMENTARY: Widespread bruising, sores, and lesions, no rash or masses noted in extremities. Redness on sacral area, not pressure wound. Warty growth in juancho area MUSCULOSKELETAL: Right knee better, decrease swelling, otherwise BUE and BLE normal without defect, crepitus, subluxation, effusion, arthritic changes or TTP except for Left BKA and right toe amputations as noted. BUE 4/5, good ROM, with normal tone. BLE 3/5 decreased ROM, with normal tone NEURO: CN 2-12 grossly intact. Sensation intact but altered in all extremities. No tremor noted in 4 extremities. POSTURE and GAIT: Sitting posture and fair. Balance appears poor. Standing balance is poor. PSYCH: Alert, oriented x3, affect appears anxious. Insight appears intact. - Constitutional Vitals: Vital Signs - 12hr 02/18/19 02/18/19 02/18/19 19:22 21:20 22:00 Temperature 36.9 C Pulse Rate 74 Pulse Rate [ Anterior Bilateral Throughout] Pulse Rate [ 118 H Apical] Pulse Rate [ Posterior Bilateral Throughout] Respiratory 18 22 Rate Respiratory Rate [Anterior Bilateral Throughout] Respiratory Rate [Posterior Bilateral Throughout] Respiratory 20 Rate [Right Leg ] Blood Pressure Blood Pressure 110/49 [Right] O2 Sat by Pulse 94 96 96 Oximetry 02/18/19 02/18/19 02/18/19 22:04 22:16 22:20 Temperature 36.7 C Pulse Rate 104 H 120 H Pulse Rate [ 108 H Anterior Bilateral Throughout] Pulse Rate [ Apical] Pulse Rate [ 110 H Posterior Bilateral Throughout] Respiratory 20 Rate Respiratory 16 Rate [Anterior Bilateral Throughout] Respiratory 18 Rate [Posterior Bilateral Throughout] Respiratory Rate [Right Leg ] Blood Pressure 98/64 111/69 Blood Pressure [Right] O2 Sat by Pulse 96 Oximetry 02/18/19 02/19/19 02/19/19 23:17 02:19 03:19 Temperature Pulse Rate 118 H Pulse Rate [ Anterior Bilateral Throughout] Pulse Rate [ Apical] Pulse Rate [ Posterior Bilateral Throughout] Respiratory 20 20 Rate Respiratory Rate [Anterior Bilateral Throughout] Respiratory Rate [Posterior Bilateral Throughout] Respiratory Rate [Right Leg ] Blood Pressure 116/52 Blood Pressure [Right] O2 Sat by Pulse Oximetry 02/19/19 02/19/19 02/19/19 05:44 05:46 05:47 Temperature 36.6 C Pulse Rate 85 85 Pulse Rate [ Anterior Bilateral Throughout] Pulse Rate [ Apical] Pulse Rate [ Posterior Bilateral Throughout] Respiratory 20 20 Rate Respiratory Rate [Anterior Bilateral Throughout] Respiratory Rate [Posterior Bilateral Throughout] Respiratory Rate [Right Leg ] Blood Pressure 119/55 Blood Pressure 119/55 [Right] O2 Sat by Pulse 94 Oximetry 02/19/19 06:46 Temperature Pulse Rate Pulse Rate [ Anterior Bilateral Throughout] Pulse Rate [ Apical] Pulse Rate [ Posterior Bilateral Throughout] Respiratory 20 Rate Respiratory Rate [Anterior Bilateral Throughout] Respiratory Rate [Posterior Bilateral Throughout] Respiratory Rate [Right Leg ] Blood Pressure Blood Pressure [Right] O2 Sat by Pulse Oximetry - Allied health notes Allied health notes reviewed: nursing, PT, OT FIMS assessment as documented by PT/OT/ST: Grooming Patient cleans teeth/dentures: Yes Patient epperson/brushes hair: Yes Patient washes, rinses and Yes dries face: Patient washes, rinses and Yes dries hands: Patient shaves: No Patient applies make-up: No Patient performs (no make-up/ 4/4 (100%) shaving): Grooming FIM Score 4. Minimal Assistance (Patient = 75% or more. Needs touching.) Social interaction/Memory/Problem solving Social Interaction FIM Score 6. Mod. [place] (Mostly appropriate. May need meds. No supv.) Memory FIM Score 6. Modified [place](Mild difficulty remembering people/routines.) Problem Solving FIM Score 5. Supervision (Needs cueing <10% to solve routine problems.) Transfers Mode of Locomotion: Wheelchair Bed/Chair/Wheelchair Transfers 4. Minimal Assistance (Patient = 75% or more. FIM Score Needs touching.) Locomotion- Stairs Stairs FIM Score 0. Activity does not occur Locomotion- walk/wheelchair Most Frequent Mode of Wheelchair Locomotion: Ambulation Distance 0 Walking FIM Score 0. Activity does not occur Wheelchair Propulsion Distance 175 Wheelchair FIM Score 4. Minimal Assistance (Patient = 75% or more. Minimum of 150 ft.) Eating Eating FIM Score 7. Complete [place] (Cuts meat, opens containers, regular diet.) Dressing-Upper body Patient retrieves clothing No items: Patient applies/removes UE No prosthesis or orthosis: Upper Body Dressing FIM Score 4. Minimal Assistance (Patient = 75% or more. Needs touching.) Dressing-lower body Lower Body Dressing Device Case Investigator/Stick,Sock Aid Patient retrieves clothing No items: Patient applies/removes LE N/A prosthesis or orthosis: Lower Body Dressing FIM Score 3. Moderate Assistance (Patient = 50% or more) - Labs CBC & Chem 7: 02/17/19 06:58 02/17/19 06:58 Labs: Laboratory Results - last 72 hr 02/16/19 02/17/19 02/17/19 21:52 06:58 06:58 WBC 4.9 RBC 3.72 Hgb 8.9 L Hct 29.2 L MCV 79 MCH 24 L MCHC 31 RDW 22.5 H Plt Count 221 Sodium 139 Potassium 4.2 Chloride 100.4 Carbon Dioxide 27 Anion Gap 16 BUN 24 H Creatinine 0.4 L Estimated GFR > 60 BUN/Creatinine Ratio 60 Glucose 98 POC Glucose 176 H Calcium 8.1 L 02/17/19 02/17/19 02/17/19 08:10 11:49 16:50 WBC RBC Hgb Hct MCV MCH MCHC RDW Plt Count Sodium Potassium Chloride Carbon Dioxide Anion Gap BUN Creatinine Estimated GFR BUN/Creatinine Ratio Glucose POC Glucose 97 137 H 138 H Calcium 02/17/19 02/18/19 02/18/19 20:19 07:18 11:07 WBC RBC Hgb Hct MCV MCH MCHC RDW Plt Count Sodium Potassium Chloride Carbon Dioxide Anion Gap BUN Creatinine Estimated GFR BUN/Creatinine Ratio Glucose POC Glucose 162 H 93 125 H Calcium 02/18/19 02/18/19 16:05 20:34 WBC RBC Hgb Hct MCV MCH MCHC RDW Plt Count Sodium Potassium Chloride Carbon Dioxide Anion Gap BUN Creatinine Estimated GFR BUN/Creatinine Ratio Glucose POC Glucose 178 H 171 H Calcium Assessment and Plan Left BKA: Continue supportive care. We'll continue to work with therapy on tra nsfers in order to facilitate safe transition. At this point based on the patient's comorbidities it does not appear that she will be a good candidate for a prosthesis. We will likely discharge home at wheelchair level. Atrial fibrillation: Need to improve rate control, normalized today. Eliquis for anticoagulation. Cardiology consult. Cellulitis right knee: keflex completed, monitor COPD: Continue respiratory support with prednisone and inhalers. DuoNeb. Respiratory therapy eval and nasal cannula for oxygen. CHF: Continue diuresis, monitor renal function, continue Entresto - consult Paul. Heart. Hypertension: Continue medications and adjust as needed, improving currently. Diabetes, poorly controlled: Continue controlled carb diet, continue insulin monitor and adjust as needed Coronary artery disease: ASA and plavix d/c'd due to thrombocytopenia and minor bleeding. Monitor for any signs of bleeding. Monitor for any chest pain or cardiac symptoms. Peripheral vascular disease: monitor for any signs of bleeding. Monitor H&H. Off antiplatelets due to thrombocytopenia DVT R brachial vein: Discussed risk and benefits with patient, confirmed with Doppler, started Eliquis. Monitor for any signs of bleeding. Hgb stable Morbid obesity: Discussed weight loss, lifestyle change, dietary modification Suspected pneumonia: Completed Levaquin. Short course mucomyst MRSA bacteremia: Completed vancomycin. D/C isolation. Last blood culture was negative Anxiety/depression: continue Xanax and Paxil Skin: continue juancho-care Right shoulder pain: Chronic in nature. Speed's POS. Voltaren gel, modalities. Pain improved Z73.6 ADL dysfunction: OT will work on improving ability to perform ADLs (including assistive devices) to increase independence and decrease caregiver b urden and improve functional transfers and mobility training. R26.2 Difficulty walking: PT will work on gait training and proper use of assistive devices and advance as appropriate to use of stairs and outside ambulation on uneven surfaces. R26.81 Unsteadiness on feet: PT will work on improving static and dynamic sitting and standing balance as well as proper use of assistive devices to decrease risk of falls. R26.89 Abnormality of gait: PT will work to improve safety and efficiency of gait through neuromotor training and gait training along with instruction on proper use of assistive devices. M62.81 Muscle weakness: PT & OT will work on strengthening exercises to improve functional strength including mixture of closed and open kinetic chain exercises. R53.81 Debility: PT & OT will work on improving overall functional status to improve participation with ADLs, mobility and social involvement. R53.83 Fatigue: PT & OT will work on improving endurance through aerobic exercises and therapeutic activity while monitoring patients tolerance for activity and vital signs as needed. DVT ppx: Started on Eliquis for RUE DVT Pain: Continue physical modalities in therapy and pain medications as needed to achieve functional pain control. Patient remains on Percocet for chronic pain Sleep: Monitor and address as needed. Melatonin Bowel: Monitor and address as needed. Appetite: Monitor and address as needed. Discharge planning: Pending therapy progress and care plan meeting. Will irineo nue discussion with therapy team, SW, patient and family. Plan for discharge once care home facility receives and excepts paperwork provided by the daughter. We do have a tentative acceptance at this time. Restrictions/ Precautions: Falls, cardiac WB status: FWB Functional Hx: ADLs: Needed assistance Cognition: Ind Mobility: RW Barriers to Discharge: Decreased mobility and ability to perform self care, balance deficits, weakness Estimated Length of Stay: 1014 days Discharge Destination: Home with family
[2019-02-19] MEDS: DUONEB *Not for PRN Use IH SCH ×3 (07:15→21:08)
[2019-02-19] MEDS: ENTRESTO 24 - 26 MG PO SCH ×2 (08:00→21:47)
[2019-02-19] MEDS: HumaLOG SUB-Q SCH ×4 (08:00→22:16)
--- NOTE | 2019-02-19 08:49 | Progress Note ---
Assessment and Plan s/p left BKA Thrombocytopenia Permanent Atrial fib/flutter on diltiazem, metoprolol and amiodarone for rate control on eliquis for oral anticoagulation therapy. Ischemic cardiomyopathy with EF 30-35% CAD s/p 3v CABG in 2013 Cor Pulmonale COPD Tobacco abuse Htn DM PAD Chronic non-compliance with medical therapy and medical follow up Recommend: Continue medical therapy for ischemic cardiomyopathy, coronary artery disease and permanent Afib. Subjective Date of service: 02/19/19 Principal diagnosis: Left BKA, debility Interval history: Patient has no cardiac complaints. Afib with a well controlled ventricular rate on telemetry. Objective Vital Signs Temp Pulse Pulse Pulse Pulse Resp Resp 02/19/19 07:16 85 84 18 02/19/19 06:46 20 02/19/19 05:47 98 F 85 20 02/19/19 05:46 20 02/19/19 05:44 85 02/19/19 03:19 20 02/19/19 02:19 20 02/18/19 23:17 118 H 02/18/19 22:20 120 H 02/18/19 22:16 98.0 F 104 H 20 02/18/19 22:04 108 H 110 H 16 02/18/19 22:00 02/18/19 21:20 118 H 22 02/18/19 19:22 98.4 F 74 18 02/18/19 16:24 97.7 F 121 H 24 02/18/19 15:05 122 H 18 02/18/19 11:00 98.0 F 118 H 26 H 02/18/19 08:58 107 H 120 H 20 Resp Resp BP BP Pulse Ox 02/19/19 07:16 18 95 02/19/19 06:46 02/19/19 05:47 119/55 94 02/19/19 05:46 02/19/19 05:44 119/55 02/19/19 03:19 02/19/19 02:19 02/18/19 23:17 116/52 02/18/19 22:20 111/69 02/18/19 22:16 98/64 96 02/18/19 22:04 18 02/18/19 22:00 96 02/18/19 21:20 20 96 02/18/19 19:22 110/49 94 02/18/19 16:24 97/58 100 02/18/19 15:05 02/18/19 11:00 126/66 96 02/18/19 08:58 22 97 - Physical Examination General: No Apparent Distress, Other (obese) HEENT: Positive: PERRL Neck: Positive: trachea midline Cardiac: Positive: irregularly irregular Lungs: Positive: Decreased Breath Sounds Neuro: Positive: Grossly Intact Abdomen: Positive: Active Bowel Sounds Extremities: Present: Other (left BKA)
[2019-02-19] MEDS ORDERED: NACL 0.9% 1000 ML 1,000 ML IV SCH (11:00)
[2019-02-19] MEDS: VITAMIN C PO SCH ×2 (11:49→21:51)
[2019-02-19] MEDS: ZINC SULFATE PO SCH ×2 (11:50→23:38)
[2019-02-19] MEDS: THERAGRAN-M Tab PO SCH (11:50)
[2019-02-19] MEDS: CORDARONE PO SCH ×2 (11:51→21:49)
[2019-02-19] MEDS: ELIQUIS PO SCH ×2 (11:52→21:48)
[2019-02-19] MEDS: XANAX PO PRN ×2 (11:52→21:55)
[2019-02-19] MEDS: PAXIL PO SCH (11:53)
[2019-02-19] MEDS: DICLOFENAC 1% TP SCH ×3 (11:55→22:24)
[2019-02-19] MEDS: MELATONIN PO SCH (21:50)
[2019-02-19] MEDS: LANTUS SUB-Q SCH (21:55)
--- NOTE | 2019-02-19 22:54 | Progress Note ---
Assessment and Plan - Patient Problems (1) Abdominal pain Current Visit: No Status: Acute Qualifiers: Abdominal location: generalized Qualified Code(s): R10.84 - Generalized abdominal pain Plan to address problem: pain control. (2) Anal wart Current Visit: No Status: Acute Plan to address problem: local tx, or ID eval. (3) Atrial flutter Current Visit: No Status: Acute Plan to address problem: follow cardiology. (4) Congestive cardiomyopathy Current Visit: No Status: Acute Plan to address problem: follow cardiology. (5) DVT prophylaxis Current Visit: No Status: Acute Plan to address problem: continue as current. (6) Anemia Current Visit: Yes Status: Acute Plan to address problem: See notes section. stable. (7) Thrombocytopenia Current Visit: Yes Status: Acute Plan to address problem: see notes section. probably infection in the wound related, vs nutrition, iron is low, B12 low end of NL. other etiology, is the vancomycin. Normalized. Subjective Date of service: 02/19/19 Principal diagnosis: Left BKA, debility Interval history: patient seen/examined, resting in bed, NAD, labs reviewed.PLT dropped by additional 2K., still no bleeding. patient seen/examined, resting in bed, records reviewed. No new issues at this time. Patient seen/examined, resting in bed, labs reviewed, case d/w patient Patient seen/examined, resting in bed labs reviewed, case d/w patient. Will continue to follow you. patient seen, resting in bed, lates labs reviewed.No new issues at this time. Patient seen/examined, resting in bed, labs reviewed, Iron labs ordered. Patient seen/resting in bed, labs reviewed. NAD at this time. Patient seen/examined, resting in bed, labs reviewed, case d/w patient, Temp 100.2, tylenol will be given. Patient seen, resting in bed, labs reviewed, no new issues at this time. Patient seen, resting in bed, records reviewed, no new issues at this time. Patient seen/examined, resting in bed, records reviewed. Patient seen/examined, resting in bed, labs reviewed, and ok , no new issues at this time, she continues with her rehab activities ok I will recomend daily lab draws, as this will eventually deplete her hgb level, and warranting unnecessary transfusion replacement therapy. Patient seen/examined, resting in bed, no new labs., No new issues at this time. Patient seen, resting in bed, still no new issues at this time.will continue to monitor along with you. Objective - Constitutional Vitals: Vital Signs - 12hr 02/19/19 02/19/19 02/19/19 12:48 14:00 14:04 Temperature 97.7 F Pulse Rate 102 H 66 Pulse Rate [ Anterior Bilateral Throughout] Pulse Rate [ Posterior Bilateral Throughout] Respiratory 18 18 Rate Respiratory Rate [Anterior Bilateral Throughout] Respiratory Rate [Posterior Bilateral Throughout] Blood Pressure 102/59 Blood Pressure 98/63 [Right] O2 Sat by Pulse 92 Oximetry 02/19/19 02/19/19 02/19/19 15:05 17:03 17:57 Temperature 97.3 F L Pulse Rate 121 H 121 H Pulse Rate [ Anterior Bilateral Throughout] Pulse Rate [ 85 Posterior Bilateral Throughout] Respiratory 18 Rate Respiratory Rate [Anterior Bilateral Throughout] Respiratory 18 Rate [Posterior Bilateral Throughout] Blood Pressure 102/59 Blood Pressure 108/67 [Right] O2 Sat by Pulse 90 Oximetry 02/19/19 02/19/19 02/19/19 18:03 21:05 21:09 Temperature 97.6 F Pulse Rate 110 H Pulse Rate [ Anterior Bilateral Throughout] Pulse Rate [ Posterior Bilateral Throughout] Respiratory 18 24 Rate Respiratory Rate [Anterior Bilateral Throughout] Respiratory Rate [Posterior Bilateral Throughout] Blood Pressure 102/53 Blood Pressure [Right] O2 Sat by Pulse 88 98 Oximetry 02/19/19 02/19/19 21:19 21:49 Temperature Pulse Rate 110 H Pulse Rate [ 110 H Anterior Bilateral Throughout] Pulse Rate [ 117 H Posterior Bilateral Throughout] Respiratory Rate Respiratory 18 Rate [Anterior Bilateral Throughout] Respiratory 18 Rate [Posterior Bilateral Throughout] Blood Pressure 102/53 Blood Pressure [Right] O2 Sat by Pulse Oximetry General appearance: Present: mild distress, well-nourished - EENT Eyes: PERRL, EOM intact ENT: hearing intact, clear oral mucosa Ears: bilateral: normal - Neck Neck: supple, normal ROM - Respiratory Respiratory effort: normal Respiratory: bilateral: CTA - Breasts Breasts: deferred - Cardiovascular Rhythm: regular Heart Sounds: Present: S1 & S2. Absent: gallop, rub Extremities: pulses intact, No edema, normal color, Full ROM - Gastrointestinal General gastrointestinal: Present: soft, non-tender, non-distended, normal bowel sounds Rectal Exam: deferred - Genitourinary Female genitourinary: deferred - Integumentary Integumentary: clear, warm, dry - Musculoskeletal Musculoskeletal: 1, strength equal bilaterally - Neurologic Neurologic: moves all extremities - Psychiatric Psychiatric: memory intact, appropriate mood/affect, intact judgment & insight - Labs CBC & Chem 7: 02/17/19 06:58 02/17/19 06:58 Labs: Abnormal lab results 02/19/19 02/19/19 02/19/19 Range/Units 07:29 12:28 16:39 POC Glucose 116 H 119 H 138 H (70-105) 02/19/19 Range/Units 21:06 POC Glucose 144 H (70-105)
[2019-02-20] MEDS: PERCOCET 5/325 PO PRN ×6 (01:34→22:29)
[2019-02-20] MEDS: NEURONTIN PO SCH ×4 (05:36→23:01)
[2019-02-20] MEDS: LOPRESSOR PO SCH ×3 (05:37→22:42)
[2019-02-20] MEDS: CARDIZEM PO SCH ×3 (05:37→22:48)
[2019-02-20] MEDS: LASIX PO SCH ×2 (05:37→18:53)
[2019-02-20] MEDS: HumaLOG SUB-Q SCH ×4 (08:49→22:57)
[2019-02-20] MEDS: XANAX PO PRN ×2 (10:19→22:30)
[2019-02-20] MEDS: VITAMIN C PO SCH ×2 (10:20→22:32)
[2019-02-20] MEDS: THERAGRAN-M Tab PO SCH (10:20)
[2019-02-20] MEDS: PAXIL PO SCH (10:20)
[2019-02-20] MEDS: CORDARONE PO SCH ×2 (10:21→22:31)
[2019-02-20] MEDS: ELIQUIS PO SCH ×2 (10:21→22:31)
[2019-02-20] MEDS: DUONEB *Not for PRN Use IH SCH ×3 (10:24→19:28)
[2019-02-20] MEDS: ENTRESTO 24 - 26 MG PO SCH ×2 (10:46→22:32)
[2019-02-20] MEDS: DICLOFENAC 1% TP SCH ×3 (10:46→22:34)
[2019-02-20] MEDS: ZINC SULFATE PO SCH ×2 (10:47→22:33)
--- NOTE | 2019-02-20 12:08 | Progress Note ---
Assessment and Plan s/p left BKA Thrombocytopenia Permanent Atrial fib/flutter on diltiazem, metoprolol and amiodarone for rate control on eliquis for oral anticoagulation therapy. Ischemic cardiomyopathy with EF 30-35% CAD s/p 3v CABG in 2013 Cor Pulmonale COPD Tobacco abuse Htn DM PAD Chronic non-compliance with medical therapy and medical follow up Recommend: We will discontinue remote telemetry. Continue medical therapy for ischemic cardiomyopathy, coronary artery disease and permanent Afib. Subjective Date of service: 02/20/19 Principal diagnosis: Left BKA, debility Interval history: Patient has no cardiac complaints. Afib with a well controlled ventricular rate on telemetry. Objective Vital Signs Temp Pulse Pulse Pulse Resp Resp Resp 02/20/19 10:25 115 H 115 H 18 18 02/20/19 10:00 02/20/19 08:35 97.5 F L 54 L 18 02/20/19 05:37 123 H 02/20/19 05:36 20 02/20/19 04:46 98.1 F 123 H 22 02/20/19 02:34 18 02/20/19 01:34 20 02/19/19 23:46 99 H 02/19/19 23:41 115 H 02/19/19 23:29 98.1 F 115 H 24 02/19/19 22:51 18 02/19/19 22:00 02/19/19 21:49 110 H 02/19/19 21:19 110 H 117 H 18 18 02/19/19 21:09 02/19/19 21:05 97.6 F 110 H 24 02/19/19 18:03 18 02/19/19 17:57 97.3 F L 121 H 18 02/19/19 17:03 121 H 02/19/19 15:05 85 18 02/19/19 14:04 97.7 F 66 18 02/19/19 14:00 102 H 02/19/19 12:48 18 BP BP Pulse Ox 02/20/19 10:25 02/20/19 10:00 98 02/20/19 08:35 101/53 96 02/20/19 05:37 106/67 02/20/19 05:36 02/20/19 04:46 106/67 97 02/20/19 02:34 02/20/19 01:34 02/19/19 23:46 02/19/19 23:41 114/62 02/19/19 23:29 114/62 97 02/19/19 22:51 02/19/19 22:00 97 02/19/19 21:49 102/53 02/19/19 21:19 02/19/19 21:09 98 02/19/19 21:05 102/53 88 02/19/19 18:03 02/19/19 17:57 108/67 90 02/19/19 17:03 102/59 02/19/19 15:05 02/19/19 14:04 98/63 92 02/19/19 14:00 102/59 02/19/19 12:48 - Physical Examination General: No Apparent Distress, Other (obese) HEENT: Positive: PERRL Neck: Positive: trachea midline Cardiac: Positive: irregularly irregular Lungs: Positive: Decreased Breath Sounds Neuro: Positive: Grossly Intact Abdomen: Positive: Active Bowel Sounds Extremities: Present: Other (left BKA)
--- NOTE | 2019-02-20 13:43 | Progress Note ---
Subjective Date of service: 02/20/19 Principal diagnosis: Left BKA, debility Interval history: 58-year-old female with recent history of a left BKA revision started to develop extreme pain in the legs and buttocks along with tachycardia. At the ER she was found to have atrial fibrillation with RVR. Her reports she was supposed to be on amiodarone was apparently noncompliant with this. She was started on amiodarone drip. She developed an acute mental status change but workup was negative for any acute changes. She is transferred to the ICU placed on BiPAP with some improvements noted. She developed MRSA bacteremia and was started on vancomycin. On 01/21 she was noted to have a right brachial DVT and was placed on a heparin drip. This was not seen in paperwork that we reviewed prior to admission and she was not transferred on any anticoagulation. There was mention under atrial fibrillation that she was not a good candidate for anticoagulation, however with both atrial fibrillation and a DVT she is at a higher risk for an embolic event. Discussed with the patient risks and benefits and have started her on Eliquis. She continued to have persistent respiratory issues with w heezing and shortness of breath. She was started on Entresto along with IV steroids and is now on oral steroid wean. Patient is participating in therapy and making progress. Taking rest breaks as needed. +BM. Denies palpitations, N/V, diarrhea. . BP better today. Heart rate variable. Legs weeping less, lymphedema wrap in place with significant decrease in swelling from original however due to removal of wrapping she is increased from previous day. Discussed discharge plan with patient, likely SNF- awaiting acceptance and appropriate paperwork from family. Continue to monitor. Cardiology restarted telemetry, have been asked to d/c by telemetry, will continue through weekend unless cardiology wants it d/c'd. Patient should d/c early next week. All records, vitals, labs and medications were reviewed. No other issues per patient, nursing or therapy. Objective - Exam Narrative Exam: MUSCULOSKELETAL SPECIALTY EXAM CONSTITUTIONAL: Well developed, well nourished, appropriately groomed, obese EENT: EOMI. Hearing intact to soft voice RESPIRATORY: Slight wheeze bilaterally, slightly better, no increased work of breathing, on nasal cannula CARDIOVASCULAR: Regular Rate Rhythm no tenderness in BUE or BLE. Improved edema in RLE and LLE. All extremities warm. No bleeding noted today GI: + bowel sounds, soft, NTTP, nondistended, protuberant INTEGUMENTARY: Widespread bruising, sores, and lesions, have improved. no rash or masses noted in extremities. Redness on sacral area, not pressure wound. Warty growth in juancho area MUSCULOSKELETAL: Right knee better, decrease swelling, otherwise BUE and BLE normal without defect, crepitus, subluxation, effusion, arthritic changes or TTP except for Le ft BKA and right toe amputations as noted. BUE 4/5, good ROM, with normal tone. BLE 3/5 decreased ROM, with normal tone NEURO: CN 2-12 grossly intact. Sensation intact but altered in all extremities. No tremor noted in 4 extremities. POSTURE and GAIT: Sitting posture and fair. Balance appears poor. Standing balance is poor. PSYCH: Alert, oriented x3, affect appears anxious. Insight appears intact. - Constitutional Vitals: Vital Signs - 12hr 02/20/19 02/20/19 02/20/19 02:34 04:46 05:36 Temperature 36.7 C Pulse Rate 123 H Pulse Rate [ Anterior Bilateral Throughout] Pulse Rate [ Apical] Pulse Rate [ Posterior Bilateral Throughout] Respiratory 18 22 20 Rate Respiratory Rate [Anterior Bilateral Throughout] Respiratory Rate [Posterior Bilateral Throughout] Blood Pressure 106/67 Blood Pressure [Right] O2 Sat by Pulse 97 Oximetry 02/20/19 02/20/19 02/20/19 05:37 08:35 10:00 Temperature 36.4 C L Pulse Rate 123 H 54 L Pulse Rate [ Anterior Bilateral Throughout] Pulse Rate [ 120 H Apical] Pulse Rate [ Posterior Bilateral Throughout] Respiratory 18 Rate Respiratory Rate [Anterior Bilateral Throughout] Respiratory Rate [Posterior Bilateral Throughout] Blood Pressure 106/67 Blood Pressure 101/53 [Right] O2 Sat by Pulse 96 97 Oximetry 02/20/19 10:25 Temperature Pulse Rate Pulse Rate [ 112 H Anterior Bilateral Throughout] Pulse Rate [ Apical] Pulse Rate [ 115 H Posterior Bilateral Throughout] Respiratory Rate Respiratory 20 Rate [Anterior Bilateral Throughout] Respiratory 18 Rate [Posterior Bilateral Throughout] Blood Pressure Blood Pressure [Right] O2 Sat by Pulse Oximetry - Allied health notes Allied health notes reviewed: nursing, PT, OT FIMS assessment as documented by PT/OT/ST: Grooming Patient cleans teeth/dentures: Yes Patient epperson/brushes hair: Yes Patient washes, rinses and Yes dries face: Patient washes, rinses and Yes dries hands: Patient shaves: No Patient applies make-up: No Patient performs (no make-up/ 10/02 (100%) shaving): Grooming FIM Score 4. Minimal Assistance (Patient = 75% or more. Needs touching.) Social interaction/Memory/Problem solving Social Interaction FIM Score 6. Mod. [place] (Mostly appropriate. May need meds. No supv.) Memory FIM Score 6. Modified [place](Mild difficulty remembering people/routines.) Problem Solving FIM Score 5. Supervision (Needs cueing <10% to solve routine problems.) Transfers Mode of Locomotion: Wheelchair Bed/Chair/Wheelchair Transfers 4. Minimal Assistance (Patient = 75% or more. FIM Score Needs touching.) Locomotion- Stairs Stairs FIM Score 0. Activity does not occur Locomotion- walk/wheelchair Most Frequent Mode of Wheelchair Locomotion: Ambulation Distance 0 Walking FIM Score 0. Activity does not occur Wheelchair Propulsion Distance 175 Wheelchair FIM Score 4. Minimal Assistance (Patient = 75% or more. Minimum of 150 ft.) Eating Eating FIM Score 7. Complete [place] (Cuts meat, opens containers, regular diet.) Dressing-Upper body Patient retrieves clothing No items: Patient applies/removes UE No prosthesis or orthosis: Upper Body Dressing FIM Score 4. Minimal Assistance (Patient = 75% or more. Needs touching.) Dressing-lower body Lower Body Dressing Device Precision Instrument Maker/Stick,Sock Aid Patient retrieves clothing No items: Patient applies/removes LE N/A prosthesis or orthosis: Lower Body Dressing FIM Score 3. Moderate Assistance (Patient = 50% or more) - Labs CBC & Chem 7: 02/17/19 06:58 02/17/19 06:58 Labs: Laboratory Results - last 72 hr 02/17/19 02/17/19 02/18/19 16:50 20:19 07:18 POC Glucose 138 H 162 H 93 02/18/19 02/18/19 02/18/19 11:07 16:05 20:34 POC Glucose 125 H 178 H 171 H 02/19/19 02/19/19 02/19/19 07:29 12:28 16:39 POC Glucose 116 H 119 H 138 H 02/19/19 02/20/19 02/20/19 21:06 07:52 11:52 POC Glucose 144 H 99 158 H Assessment and Plan Left BKA: Continue supportive care. We'll continue to work with therapy on transfers in order to facilitate safe transition. At this point based on the patient's comorbidities it does not appear that she will be a good candidate for a prosthesis. We will likely discharge home at wheelchair level. Atrial fibrillation: Need to improve rate control, normalized today. Eliquis for anticoagulation. Cardiology consult. Cellulitis right knee: keflex completed, monitor COPD: Continue respiratory support with prednisone and inhalers. DuoNeb. Respiratory therapy eval and nasal cannula for oxygen. CHF: Continue diuresis, monitor renal function, continue Entresto - consult Paul. Heart. Hypertension: Continue medications and adjust as needed, improving currently. Diabetes, poorly controlled: Continue controlled carb diet, continue insulin monitor and adjust as needed Coronary artery disease: ASA and plavix d/c'd due to thrombocytopenia and minor bleeding. Monitor for any signs of bleeding. Monitor for any chest pain or cardiac symptoms. Peripheral vascular disease: monitor for any signs of bleeding. Monitor H&H. Off antiplatelets due to thrombocytopenia DVT R brachial vein: Discussed risk and benefits with patient, confirmed with Doppler, started Eliquis. Monitor for any signs of bleeding. Hgb stable Morbid obesity: Discussed weight loss, lifestyle change, dietary modification Suspected pneumonia: Completed Levaquin. Short course mucomyst MRSA bacteremia: Completed vancomycin. D/C isolation. Last blood culture was negative Anxiety/depression: continue Xanax and Paxil Skin: continue juancho-care Right shoulder pain: Chronic in nature. Speed's POS. Voltaren gel, modalities. Pain improved Z73.6 ADL dysfunction: OT will work on improving ability to perform ADLs (including assistive devices) to increase independence and decrease caregiver burden and improve functional transfers and mobility training. R26.2 Difficulty walking: PT will work on gait training and proper use of assistive devices and advance as appropriate to use of stairs and outside ambulation on uneven surfaces. R26.81 Unsteadiness on feet: PT will work on improving static and dynamic sitting and standing balance as well as proper use of assistive devices to decrease risk of falls. R26.89 Abnormality of gait: PT will work to improve safety and efficiency of gait through neuromotor training and gait training along with instruction on proper use of assistive devices. M62.81 Muscle weakness: PT & OT will work on strengthening exercises to improve functional strength including mixture of closed and open kinetic chain exercises. R53.81 Debility: PT & OT will work on improving overall functional status to improve participation with ADLs, mobility and social involvement. R53.83 Fatigue: PT & OT will work on improving endurance through aerobic exercises and therapeutic activity while monitoring patients tolerance for activity and vital signs as needed. DVT ppx: Started on Eliquis for RUE DVT Pain: Continue physical modalities in therapy and pain medications as needed to achieve functional pain control. Patient remains on Percocet for chronic pain Sleep: Monitor and address as needed. Melatonin Bowel: Monitor and address as needed. Appetite: Monitor and address as needed. Discharge planning: Pending therapy progress and care plan meeting. Will continue discussion with therapy team, SW, patient and family. Plan for discharge once senior care facility receives and excepts paperwork provided by the daughter. We do have a tentative acceptance at this time. Restrictions/ Precautions: Falls, cardiac WB status: FWB Functional Hx: ADLs: Needed assistance Cognition: Ind Mobility: RW Barriers to Discharge: Decreased mobility and ability to perform self care, balance deficits, weakness Estimated Length of Stay: 1014 days Discharge Destination: Home with family
[2019-02-20] MEDS: LANTUS SUB-Q SCH (22:41)
[2019-02-20] MEDS: MELATONIN PO SCH (22:41)
[2019-02-21] MEDS: PERCOCET 5/325 PO PRN ×5 (04:30→22:39)
[2019-02-21] MEDS: NEURONTIN PO SCH ×4 (05:26→23:45)
[2019-02-21] MEDS: CARDIZEM PO SCH ×3 (05:31→22:35)
[2019-02-21] MEDS: LASIX PO SCH ×2 (05:31→18:22)
[2019-02-21] MEDS: LOPRESSOR PO SCH ×3 (05:31→22:38)
[2019-02-21] MEDS: DUONEB *Not for PRN Use IH SCH ×3 (09:18→19:24)
[2019-02-21] MEDS: THERAGRAN-M Tab PO SCH (09:40)
[2019-02-21] MEDS: XANAX PO PRN ×2 (09:40→23:45)
[2019-02-21] MEDS: CORDARONE PO SCH ×2 (09:40→22:36)
[2019-02-21] MEDS: PAXIL PO SCH (09:40)
[2019-02-21] MEDS: ZINC SULFATE PO SCH ×2 (09:40→22:37)
[2019-02-21] MEDS: VITAMIN C PO SCH ×2 (09:40→22:37)
[2019-02-21] MEDS: DICLOFENAC 1% TP SCH ×3 (09:41→22:38)
[2019-02-21] MEDS: ENTRESTO 24 - 26 MG PO SCH ×2 (09:41→22:37)
[2019-02-21] MEDS: HumaLOG SUB-Q SCH ×4 (10:43→23:45)
--- NOTE | 2019-02-21 12:03 | Progress Note ---
Subjective Date of service: 02/21/19 Principal diagnosis: Left BKA, debility Interval history: Patient seen and examined by me will add IV lasix today, pt has resp rhonchi bilaterally Original Note: Assessment and Plan s/p left BKA Thrombocytopenia Permanent Atrial fib/flutter on diltiazem, metoprolol and amiodarone for rate control on eliquis for oral anticoagulation therapy. Ischemic cardiomyopathy with EF 30-35% CAD s/p 3v CABG in 2013 Cor Pulmonale COPD Tobacco abuse Htn DM PAD Chronic non-compliance with medical therapy and medical follow up Objective Vital Signs Temp Pulse Pulse Pulse Resp Resp Resp 02/21/19 08:02 98.0 F 123 H 18 02/21/19 05:31 02/21/19 05:00 97.5 F L 105 H 20 02/20/19 22:48 116 H 02/20/19 22:42 02/20/19 20:00 98.3 F 94 H 18 02/20/19 19:36 118 H 18 02/20/19 19:30 97.9 F 119 H 24 02/20/19 19:29 02/20/19 15:21 111 H 112 H 18 18 BP BP Pulse Ox 02/21/19 08:02 105/66 99 02/21/19 05:31 98/46 02/21/19 05:00 98/46 100 02/20/19 22:48 101/69 02/20/19 22:42 96/50 02/20/19 20:00 115/71 98 02/20/19 19:36 02/20/19 19:30 96/50 94 02/20/19 19:29 96 02/20/19 15:21 - Physical Examination General: No Apparent Distress, Other (obese) HEENT: Positive: PERRL Neck: Positive: trachea midline Cardiac: Positive: Regular Rate, S1/S2 Lungs: Positive: Rhonchi Neuro: Positive: Grossly Intact Abdomen: Positive: Active Bowel Sounds Extremities: Present: Other (left BKA)
[2019-02-21] MEDS: ELIQUIS PO SCH ×2 (12:32→22:36)
[2019-02-21] MEDS ORDERED: LASIX IV ONE (13:00)
--- NOTE | 2019-02-21 21:09 | Progress Note ---
Assessment and Plan - Patient Problems (1) Abdominal pain Current Visit: No Status: Acute Qualifiers: Abdominal location: generalized Qualified Code(s): R10.84 - Generalized abdominal pain Plan to address problem: pain control. (2) Anal wart Current Visit: No Status: Acute Plan to address problem: local tx, or ID eval. (3) Atrial flutter Current Visit: No Status: Acute Plan to address problem: follow cardiology. (4) Congestive cardiomyopathy Current Visit: No Status: Acute Plan to address problem: follow cardiology. (5) DVT prophylaxis Current Visit: No Status: Acute Plan to address problem: continue as current. (6) Anemia Current Visit: Yes Status: Acute Plan to address problem: See notes section. stable. (7) Thrombocytopenia Current Visit: Yes Status: Acute Plan to address problem: see notes section. probably infection in the wound related, vs nutrition, iron is low, B12 low end of NL. other etiology, is the vancomycin. Normalized. Subjective Date of service: 02/21/19 Principal diagnosis: Left BKA, debility Interval history: patient seen/examined, resting in bed, NAD, labs reviewed.PLT dropped by additional 2K., still no bleeding. patient seen/examined, resting in bed, records reviewed. No new issues at this time. Patient seen/examined, resting in bed, labs reviewed, case d/w patient Patient seen/examined, resting in bed labs reviewed, case d/w patient. Will continue to follow you. patient seen, resting in bed, lates labs reviewed.No new issues at this time. Patient seen/examined, resting in bed, labs reviewed, Iron labs ordered. Patient seen/resting in bed, labs reviewed. NAD at this time. Patient seen/examined, resting in bed, labs reviewed, case d/w patient, Temp 100.2, tylenol will be given. Patient seen, resting in bed, labs reviewed, no new issues at this time. Patient seen, resting in bed, records reviewed, no new issues at this time. Patient seen/examined, resting in bed, records reviewed. Patient seen/examined, resting in bed, labs reviewed, and ok , no new issues at this time, she continues with her rehab activities ok I will recomend daily lab draws, as this will eventually deplete her hgb level, and warranting unnecessary transfusion replacement therapy. Patient seen/examined, resting in bed, no new labs., No new issues at this time. Patient seen, resting in bed, still no new issues at this time.will continue to monitor along with you. Patient seen/examined, resting in bed, records reviewed, case d/w her..Awaiting d/c to the NH/rehab. Objective - Constitutional Vitals: Vital Signs - 12hr 02/21/19 02/21/19 02/21/19 10:00 11:55 14:24 Temperature 98.3 F Pulse Rate 125 H 125 H Pulse Rate [ Posterior Bilateral Throughout] Respiratory 18 Rate Respiratory Rate [Posterior Bilateral Throughout] Blood Pressure 90/52 104/64 O2 Sat by Pulse 97 97 Oximetry 02/21/19 02/21/19 02/21/19 16:00 19:24 19:36 Temperature Pulse Rate 124 H Pulse Rate [ 102 H 108 H Posterior Bilateral Throughout] Respiratory 18 Rate Respiratory 18 21 Rate [Posterior Bilateral Throughout] Blood Pressure 104/71 O2 Sat by Pulse 97 Oximetry 02/21/19 02/21/19 19:37 20:09 Temperature 97.2 F L Pulse Rate 120 H Pulse Rate [ Posterior Bilateral Throughout] Respiratory 20 Rate Respiratory Rate [Posterior Bilateral Throughout] Blood Pressure 103/59 O2 Sat by Pulse 98 96 Oximetry General appearance: Present: mild distress - EENT Eyes: PERRL, EOM intact ENT: hearing intact, clear oral mucosa Ears: bilateral: normal - Neck Neck: supple, normal ROM - Respiratory Respiratory effort: normal Respiratory: bilateral: CTA - Breasts Breasts: deferred - Cardiovascular Rhythm: regular Heart Sounds: Present: S1 & S2. Absent: gallop, rub Extremities: pulses intact, No edema, normal color, Full ROM - Gastrointestinal General gastrointestinal: Present: soft, non-tender, non-distended, normal bowel sounds Rectal Exam: deferred - Genitourinary Female genitourinary: deferred - Integumentary Integumentary: clear, warm, dry - Musculoskeletal Musculoskeletal: 1, strength equal bilaterally - Neurologic Neurologic: moves all extremities - Psychiatric Psychiatric: memory intact, appropriate mood/affect, intact judgment & insight - Labs CBC & Chem 7: 02/17/19 06:58 02/17/19 06:58 Labs: Abnormal lab results 02/20/19 02/21/19 02/21/19 Range/Units 21:34 10:49 16:06 POC Glucose 154 H 114 H 123 H (70-105)
[2019-02-21] MEDS: MELATONIN PO SCH (22:37)
[2019-02-21] MEDS: LANTUS SUB-Q SCH (22:43)
[2019-02-22] MEDS: PERCOCET 5/325 PO PRN ×5 (03:39→22:53)
[2019-02-22] MEDS: ZOFRAN ODT PO PRN (03:40)
[2019-02-22] MEDS: LASIX PO SCH ×2 (05:55→18:13)
[2019-02-22] MEDS: NEURONTIN PO SCH ×4 (05:56→23:01)
[2019-02-22] MEDS: CARDIZEM PO SCH ×3 (06:04→22:50)
[2019-02-22] MEDS: LOPRESSOR PO SCH ×3 (06:04→23:07)
[2019-02-22] MEDS: DUONEB *Not for PRN Use IH SCH ×3 (08:52→21:36)
[2019-02-22] MEDS: HumaLOG SUB-Q SCH ×4 (09:16→22:52)
[2019-02-22] MEDS: ELIQUIS PO SCH ×2 (09:52→22:49)
[2019-02-22] MEDS: PAXIL PO SCH (09:53)
[2019-02-22] MEDS: ENTRESTO 24 - 26 MG PO SCH ×2 (09:53→22:51)
[2019-02-22] MEDS: VITAMIN C PO SCH ×2 (09:53→22:49)
[2019-02-22] MEDS: THERAGRAN-M Tab PO SCH (09:53)
[2019-02-22] MEDS: ZINC SULFATE PO SCH ×2 (09:53→22:50)
[2019-02-22] MEDS: CORDARONE PO SCH ×2 (09:53→22:50)
[2019-02-22] MEDS: DICLOFENAC 1% TP SCH ×3 (10:01→23:06)
[2019-02-22] MEDS ORDERED: LASIX IV ONE (10:41)
--- NOTE | 2019-02-22 10:41 | Progress Note ---
Subjective Date of service: 02/22/19 Principal diagnosis: Left BKA, debility Interval history: Patient seen and examined by me will add IV lasix today, pt has resp rhonchi improved after xtra lasix yesterday Original Note: Assessment and Plan s/p left BKA Thrombocytopenia Permanent Atrial fib/flutter on diltiazem, metoprolol and amiodarone for rate control on eliquis for oral anticoagulation therapy. Ischemic cardiomyopathy with EF 30-35% CAD s/p 3v CABG in 2013 Cor Pulmonale COPD Tobacco abuse Htn DM PAD Chronic non-compliance with medical therapy and medical follow up Objective Vital Signs Temp Pulse Pulse Resp Resp BP BP 02/22/19 09:01 97.9 F 121 H 24 102/70 02/22/19 08:52 02/22/19 06:03 98.5 F 119 H 18 102/66 02/22/19 04:39 97.6 F 122 H 20 93/53 02/22/19 03:14 02/21/19 20:09 97.2 F L 120 H 20 103/59 02/21/19 19:37 02/21/19 19:36 108 H 21 02/21/19 19:24 102 H 18 02/21/19 16:00 124 H 18 104/71 02/21/19 14:24 125 H 104/64 02/21/19 11:55 98.3 F 125 H 18 90/52 Pulse Ox 02/22/19 09:01 95 02/22/19 08:52 97 02/22/19 06:03 97 02/22/19 04:39 97 02/22/19 03:14 97 02/21/19 20:09 96 02/21/19 19:37 98 02/21/19 19:36 02/21/19 19:24 02/21/19 16:00 97 02/21/19 14:24 02/21/19 11:55 97 - Physical Examination General: No Apparent Distress, Other (obese) HEENT: Positive: PERRL Neck: Positive: trachea midline Cardiac: Positive: irregularly irregular, S1/S2 Lungs: Positive: Rhonchi (rhonchi improved) Neuro: Positive: Grossly Intact Abdomen: Positive: Soft, Active Bowel Sounds Extremities: Present: +1 Edema, Other (left BKA)
[2019-02-22] MEDS: XANAX PO PRN ×2 (12:26→22:53)
[2019-02-22] MEDS: MIRALAX 3350 PO PRN (12:34)
--- NOTE | 2019-02-22 14:04 | Progress Note ---
Assessment and Plan - Patient Problems (1) Abdominal pain Current Visit: No Status: Acute Qualifiers: Abdominal location: generalized Qualified Code(s): R10.84 - Generalized abdominal pain Plan to address problem: pain control. (2) Anal wart Current Visit: No Status: Acute Plan to address problem: local tx, or ID eval. (3) Atrial flutter Current Visit: No Status: Acute Plan to address problem: follow cardiology. (4) Congestive cardiomyopathy Current Visit: No Status: Acute Plan to address problem: follow cardiology. (5) DVT prophylaxis Current Visit: No Status: Acute Plan to address problem: continue as current. (6) Anemia Current Visit: Yes Status: Acute Plan to address problem: See notes section. stable. (7) Thrombocytopenia Current Visit: Yes Status: Acute Plan to address problem: see notes section. probably infection in the wound related, vs nutrition, iron is low, B12 low end of NL. other etiology, is the vancomycin. Normalized. Subjective Date of service: 02/22/19 Principal diagnosis: Left BKA, debility Interval history: patient seen/examined, resting in bed, NAD, labs reviewed.PLT dropped by additional 2K., still no bleeding. patient seen/examined, resting in bed, records reviewed. No new issues at this time. Patient seen/examined, resting in bed, labs reviewed, case d/w patient Patient seen/examined, resting in bed labs reviewed, case d/w patient. Will continue to follow you. patient seen, resting in bed, lates labs reviewed.No new issues at this time. Patient seen/examined, resting in bed, labs reviewed, Iron labs ordered. Patient seen/resting in bed, labs reviewed. NAD at this time. Patient seen/examined, resting in bed, labs reviewed, case d/w patient, Temp 100.2, tylenol will be given. Patient seen, resting in bed, labs reviewed, no new issues at this time. Patient seen, resting in bed, records reviewed, no new issues at this time. Patient seen/examined, resting in bed, records reviewed. Patient seen/examined, resting in bed, labs reviewed, and ok , no new issues at this time, she continues with her rehab activities ok I will recomend daily lab draws, as this will eventually deplete her hgb level, and warranting unnecessary transfusion replacement therapy. Patient seen/examined, resting in bed, no new labs., No new issues at this time. Patient seen, resting in bed, still no new issues at this time.will continue to monitor along with you. Patient seen/examined, resting in bed, records reviewed, case d/w her..Awaiting d/c to the NH/rehab. Patient seen/examined, resting in bed, no new issues at this time. Objective - Constitutional Vitals: Vital Signs - 12hr 02/22/19 02/22/19 02/22/19 03:14 04:39 06:03 Temperature 97.6 F 98.5 F Pulse Rate 122 H 119 H Respiratory 20 18 Rate Blood Pressure Blood Pressure 93/53 102/66 [Right] O2 Sat by Pulse 97 97 97 Oximetry 02/22/19 02/22/19 08:52 09:01 Temperature 97.9 F Pulse Rate 121 H Respiratory 24 Rate Blood Pressure 102/70 Blood Pressure [Right] O2 Sat by Pulse 97 95 Oximetry General appearance: Present: mild distress, well-nourished - EENT Eyes: PERRL, EOM intact ENT: hearing intact, clear oral mucosa Ears: bilateral: normal - Neck Neck: supple, normal ROM - Respiratory Respiratory effort: normal Respiratory: bilateral: CTA - Breasts Breasts: deferred - Cardiovascular Rhythm: regular Heart Sounds: Present: S1 & S2. Absent: gallop, rub Extremities: pulses intact, No edema, normal color, Full ROM - Gastrointestinal General gastrointestinal: Present: soft, non-tender, non-distended, normal bowel sounds Rectal Exam: deferred - Genitourinary Female genitourinary: deferred - Integumentary Integumentary: clear, warm, dry - Musculoskeletal Musculoskeletal: 1, strength equal bilaterally - Neurologic Neurologic: moves all extremities - Psychiatric Psychiatric: memory intact, appropriate mood/affect, intact judgment & insight - Labs CBC & Chem 7: 02/17/19 06:58 02/17/19 06:58 Labs: Abnormal lab results 02/21/19 02/21/19 02/22/19 Range/Units 16:06 22:08 12:35 POC Glucose 123 H 128 H 109 H (70-105)
[2019-02-22] MEDS: LANTUS SUB-Q SCH (22:48)
[2019-02-22] MEDS: MELATONIN PO SCH (22:56)
[2019-02-23 00:56] LABS: BUN/Creatinine Ratio 55; Blood Urea Nitrogen 33 mg/dL (7-17); Calcium 8.5 mg/dL (8.4-10.2); Hemolysis Index 11
[2019-02-23] MEDS: PERCOCET 5/325 PO PRN ×5 (02:50→22:07)
[2019-02-23] MEDS: CARDIZEM PO SCH ×3 (06:05→22:22)
[2019-02-23] MEDS: LOPRESSOR PO SCH ×3 (06:06→22:10)
[2019-02-23] MEDS: LASIX PO SCH ×2 (06:06→18:24)
[2019-02-23] MEDS: NEURONTIN PO SCH ×3 (06:06→18:24)
[2019-02-23 08:01] LABS: Mean Corpuscular HGB Conc 30 % (30-34); Mean Corpuscular Volume 79 fl (79-97); Platelet Count 204 K/mm3 (140-440)
[2019-02-23 08:05] LABS: Red Cell Distribution Width 22.6 % (13.2-15.2)
[2019-02-23 08:06] LABS: Hematocrit 28.6 % (30.3-42.9); Hemoglobin 8.4 gm/dl (10.1-14.3)
[2019-02-23] MEDS: DUONEB *Not for PRN Use IH SCH ×3 (08:25→19:39)
[2019-02-23] MEDS: HumaLOG SUB-Q SCH ×4 (09:11→22:10)
--- NOTE | 2019-02-23 10:01 | Progress Note ---
Subjective Date of service: 02/23/19 Principal diagnosis: Left BKA, debility Interval history: 58-year-old female with recent history of a left BKA revision started to develop extreme pain in the legs and buttocks along with tachycardia. At the ER she was found to have atrial fibrillation with RVR. Her reports she was supposed to be on amiodarone was apparently noncompliant with this. She was started on amiodarone drip. She developed an acute mental status change but workup was negative for any acute changes. She is transferred to the ICU placed on BiPAP with some improvements noted. She developed MRSA bacteremia and was started on vancomycin. On 01/21 she was noted to have a right brachial DVT and was placed on a heparin drip. This was not seen in paperwork that we reviewed prior to admission and she was not transferred on any anticoagulation. There was mention under atrial fibrillation that she was not a good candidate for anticoagulation, however with both atrial fibrillation and a DVT she is at a higher risk for an embolic event. Discussed with the patient risks and benefits and have started her on Eliquis. She continued to have persistent respiratory issues with w heezing and shortness of breath. She was started on Entresto along with IV steroids and is now on oral steroid wean. Patient is participating in therapy and making progress. Taking rest breaks as needed. +BM. Denies palpitations, N/V, diarrhea. . BP better today. Heart rate variable. Legs weeping less, lymphedema wrap in place with significant decrease in swelling Discussed discharge plan with patient, SNF-awaiting acceptance and appropriate paperwork from family. Continue to monitor. Patient should d/c this week. Able to utilize sliding board for first time today All records, vitals, labs and medications were reviewed. No other issues per patient, nursing or therapy. Objective - Exam Narrative Exam: MUSCULOSKELETAL SPECIALTY EXAM CONSTITUTIONAL: Well developed, well nourished, appropriately groomed, obese EENT: EOMI. Hearing intact to soft voice RESPIRATORY: Slight wheeze bilaterally, slightly better, no increased work of breathing, on nasal cannula CARDIOVASCULAR: Regular Rate Rhythm no tenderness in BUE or BLE. Improved edema in RLE and LLE. All extremities warm. No bleeding noted today GI: + bowel sounds, soft, NTTP, nondistended, protuberant INTEGUMENTARY: Widespread bruising, sores, and lesions, have improved. no rash or masses noted in extremities. Redness on sacral area, not pressure wound. Warty growth in juancho area MUSCULOSKELETAL: Right knee better, decrease swelling, otherwise BUE and BLE normal without defect, crepitus, subluxation, effusion, arthritic changes or TTP except for Left BKA and right toe amputations as noted. BUE 4/5, good ROM, with normal tone. BLE 3/5 decreased ROM, with normal tone NEURO: CN 2-12 grossly intact. Sensation intact but altered in all extremities. No tremor noted in 4 extremities. POSTURE and GAIT: Sitting posture and fair. Balance appears poor. Standing balance is poor. PSYCH: Alert, oriented x3, affect appears anxious. Insight appears intact. - Constitutional Vitals: Vital Signs - 12hr 02/22/19 02/22/19 02/23/19 22:50 23:07 01:11 Temperature Pulse Rate 123 H 123 H Pulse Rate [ Anterior Bilateral Throughout] Respiratory Rate Respiratory Rate [Anterior Bilateral Throughout] Blood Pressure 97/53 97/53 O2 Sat by Pulse 96 Oximetry 02/23/19 02/23/19 02/23/19 06:02 06:03 06:05 Temperature 37.1 C Pulse Rate 120 H 117 H 121 H Pulse Rate [ Anterior Bilateral Throughout] Respiratory 18 Rate Respiratory Rate [Anterior Bilateral Throughout] Blood Pressure 101/66 101/66 O2 Sat by Pulse 93 93 Oximetry 02/23/19 02/23/19 02/23/19 06:06 07:57 08:25 Temperature 36.7 C Pulse Rate 121 H 109 H Pulse Rate [ Anterior Bilateral Throughout] Respiratory 18 Rate Respiratory Rate [Anterior Bilateral Throughout] Blood Pressure 101/66 93/45 O2 Sat by Pulse 93 96 Oximetry 02/23/19 08:35 Temperature Pulse Rate Pulse Rate [ 110 H Anterior Bilateral Throughout] Respiratory Rate Respiratory 16 Rate [Anterior Bilateral Throughout] Blood Pressure O2 Sat by Pulse Oximetry - Allied health notes Allied health notes reviewed: nursing, PT, OT FIMS assessment as documented by PT/OT/ST: Grooming Patient cleans teeth/dentures: Yes Patient epperson/brushes hair: Yes Patient washes, rinses and Yes dries face: Patient washes, rinses and Yes dries hands: Patient shaves: No Patient applies make-up: No Patient performs (no make-up/ 10/02 (100%) shaving): Grooming FIM Score 4. Minimal Assistance (Patient = 75% or more. Needs touching.) Social interaction/Memory/Problem solving Social Interaction FIM Score 6. Mod. Butler (Mostly appropriate. May need meds. No supv.) Memory FIM Score 6. Modified Butler(Mild difficulty remembering people/routines.) Problem Solving FIM Score 5. Supervision (Needs cueing <10% to solve routine problems.) Transfers Mode of Locomotion: Wheelchair Bed/Chair/Wheelchair Transfers 4. Minimal Assistance (Patient = 75% or more. FIM Score Needs touching.) Locomotion- Stairs Stairs FIM Score 0. Activity does not occur Locomotion- walk/wheelchair Most Frequent Mode of Wheelchair Locomotion: Ambulation Distance 0 Walking FIM Score 0. Activity does not occur Wheelchair Propulsion Distance 175 Wheelchair FIM Score 4. Minimal Assistance (Patient = 75% or more. Minimum of 150 ft.) Eating Eating FIM Score 7. Complete Butler (Cuts meat, opens containers, regular diet.) Dressing-Upper body Patient retrieves clothing No items: Patient applies/removes UE No prosthesis or orthosis: Upper Body Dressing FIM Score 4. Minimal Assistance (Patient = 75% or more. Needs touching.) Dressing-lower body Lower Body Dressing Device Strap Making Machine Operator/Stick,Sock Aid Patient retrieves clothing No items: Patient applies/removes LE N/A prosthesis or orthosis: Lower Body Dressing FIM Score 3. Moderate Assistance (Patient = 50% or more) - Labs CBC & Chem 7: 02/23/19 07:01 02/23/19 00:29 Labs: Laboratory Results - last 72 hr 02/20/19 02/20/19 02/20/19 11:52 18:05 21:34 WBC RBC Hgb Hct MCV MCH MCHC RDW Plt Count Sodium Potassium Chloride Carbon Dioxide Anion Gap BUN Creatinine Estimated GFR BUN/Creatinine Ratio Glucose POC Glucose 158 H 140 H 154 H Calcium 02/21/19 02/21/19 02/21/19 10:49 16:06 22:08 WBC RBC Hgb Hct MCV MCH MCHC RDW Plt Count Sodium Potassium Chloride Carbon Dioxide Anion Gap BUN Creatinine Estimated GFR BUN/Creatinine Ratio Glucose POC Glucose 114 H 123 H 128 H Calcium 02/22/19 02/22/19 02/22/19 09:16 12:35 18:05 WBC RBC Hgb Hct MCV MCH MCHC RDW Plt Count Sodium Potassium Chloride Carbon Dioxide Anion Gap BUN Creatinine Estimated GFR BUN/Creatinine Ratio Glucose POC Glucose 81 109 H 147 H Calcium 02/22/19 02/23/19 02/23/19 21:41 00:29 07:01 WBC 5.7 RBC 3.60 L Hgb 8.4 L Hct 28.6 L MCV 79 MCH 23 L MCHC 30 RDW 22.6 H Plt Count 204 Sodium 140 Potassium 4.0 Chloride 100.2 Carbon Dioxide 25 Anion Gap 19 BUN 33 H Creatinine 0.6 L Estimated GFR > 60 BUN/Creatinine Ratio 55 Glucose 165 H POC Glucose 136 H Calcium 8.5 02/23/19 08:02 WBC RBC Hgb Hct MCV MCH MCHC RDW Plt Count Sodium Potassium Chloride Carbon Dioxide Anion Gap BUN Creatinine Estimated GFR BUN/Creatinine Ratio Glucose POC Glucose 140 H Calcium Assessment and Plan Left BKA: Continue supportive care. We'll continue to work with therapy on transfers in order to facilitate safe transition. At this point based on the patient's comorbidities it does not appear that she will be a good candidate for a prosthesis. We will likely discharge home at wheelchair level. Atrial fibrillation: Need to improve rate control, normalized today. Eliquis for anticoagulation. Cardiology consult. Cellulitis right knee: keflex completed, monitor COPD: Continue respiratory support with prednisone and inhalers. DuoNeb. Respiratory therapy eval and nasal cannula for oxygen. CHF: Continue diuresis, monitor renal function, continue Entresto - consult Paul. Heart. Hypertension: Continue medications and adjust as needed, improving currently. Diabetes, poorly controlled: Continue controlled carb diet, continue insulin monitor and adjust as needed Coronary artery disease: ASA and plavix d/c'd due to thrombocytopenia and minor bleeding. Monitor for any signs of bleeding. Monitor for any chest pain or cardiac symptoms. Peripheral vascular disease: monitor for any signs of bleeding. Monitor H&H. Off antiplatelets due to thrombocytopenia DVT R brachial vein: Discussed risk and benefits with patient, confirmed with Doppler, started Eliquis. Monitor for any signs of bleeding. Hgb stable Morbid obesity: Discussed weight loss, lifestyle change, dietary modification Suspected pneumonia: Completed Levaquin. Short course mucomyst MRSA bacteremia: Completed vancomycin. D/C isolation. Last blood culture was negative Anxiety/depression: continue Xanax and Paxil Skin: continue juancho-care Right shoulder pain: Chronic in nature. Speed's POS. Voltaren gel, modalities. Pain improved Z73.6 ADL dysfunction: OT will work on improving ability to perform ADLs (including assistive devices) to increase independence and decrease caregiver burden and improve functional transfers and mobility training. R26.2 Difficulty walking: PT will work on gait training and proper use of assistive devices and advance as appropriate to use of stairs and outside ambulation on uneven surfaces. R26.81 Unsteadiness on feet: PT will work on improving static and dynamic sitting and standing balance as well as proper use of assistive devices to decrease risk of falls. R26.89 Abnormality of gait: PT will work to improve safety and efficiency of gait through neuromotor training and gait training along with instruction on proper use of assistive devices. M62.81 Muscle weakness: PT & OT will work on strengthening exercises to improve functional strength including mixture of closed and open kinetic chain exercises. R53.81 Debility: PT & OT will work on improving overall functional status to improve participation with ADLs, mobility and social involvement. R53.83 Fatigue: PT & OT will work on improving endurance through aerobic exe rcises and therapeutic activity while monitoring patients tolerance for activity and vital signs as needed. DVT ppx: Started on Eliquis for RUE DVT Pain: Continue physical modalities in therapy and pain medications as needed to achieve functional pain control. Patient remains on Percocet for chronic pain Sleep: Monitor and address as needed. Melatonin Bowel: Monitor and address as needed. Appetite: Monitor and address as needed. Discharge planning: Pending therapy progress and care plan meeting. Will continue discussion with therapy team, SW, patient and family. Plan [facility] and excepts paperwork provided by the daughter. We do have a tentative acceptance at this time. Restrictions/ Precautions: Falls, cardiac WB status: FWB Functional Hx: ADLs: Needed assistance Cognition: Ind Mobility: RW Barriers to Discharge: Decreased mobility and ability to perform self care, balance deficits, weakness Estimated Length of Stay: 1014 days Discharge Destination: Home with family
[2019-02-23] MEDS: PAXIL PO SCH (11:06)
[2019-02-23] MEDS: ELIQUIS PO SCH ×2 (11:06→22:33)
[2019-02-23] MEDS: FEOSOL PO SCH ×2 (11:06→22:08)
[2019-02-23] MEDS: CORDARONE PO SCH ×2 (11:07→22:22)
[2019-02-23] MEDS: ZINC SULFATE PO SCH ×2 (11:07→22:08)
[2019-02-23] MEDS: XANAX PO PRN ×2 (11:07→22:21)
[2019-02-23] MEDS: THERAGRAN-M Tab PO SCH (11:07)
[2019-02-23] MEDS: VITAMIN C PO SCH ×2 (11:07→22:09)
[2019-02-23] MEDS: DICLOFENAC 1% TP SCH ×3 (11:11→22:09)
[2019-02-23] MEDS: ENTRESTO 24 - 26 MG PO SCH ×2 (11:11→22:11)
[2019-02-23] MEDS: MELATONIN PO SCH (22:08)
[2019-02-23] MEDS: LANTUS SUB-Q SCH (22:22)
[2019-02-23] MEDS: MIRALAX 3350 PO PRN (22:23)
--- NOTE | 2019-02-23 23:59 | Progress Note ---
Assessment and Plan - Patient Problems (1) Abdominal pain Current Visit: No Status: Acute Qualifiers: Abdominal location: generalized Qualified Code(s): R10.84 - Generalized abdominal pain Plan to address problem: pain control. (2) Anal wart Current Visit: No Status: Acute Plan to address problem: local tx, or ID eval. (3) Atrial flutter Current Visit: No Status: Acute Plan to address problem: follow cardiology. (4) Congestive cardiomyopathy Current Visit: No Status: Acute Plan to address problem: follow cardiology. (5) DVT prophylaxis Current Visit: No Status: Acute Plan to address problem: continue as current. (6) Anemia Current Visit: Yes Status: Acute Plan to address problem: See notes section. stable. (7) Thrombocytopenia Current Visit: Yes Status: Acute Plan to address problem: see notes section. probably infection in the wound related, vs nutrition, iron is low, B12 low end of NL. other etiology, is the vancomycin. Normalized. Subjective Date of service: 02/23/19 Principal diagnosis: Left BKA, debility Interval history: patient seen/examined, resting in bed, NAD, labs reviewed.PLT dropped by additional 2K., still no bleeding. patient seen/examined, resting in bed, records reviewed. No new issues at this time. Patient seen/examined, resting in bed, labs reviewed, case d/w patient Patient seen/examined, resting in bed labs reviewed, case d/w patient. Will continue to follow you. patient seen, resting in bed, lates labs reviewed.No new issues at this time. Patient seen/examined, resting in bed, labs reviewed, Iron labs ordered. Patient seen/resting in bed, labs reviewed. NAD at this time. Patient seen/examined, resting in bed, labs reviewed, case d/w patient, Temp 100.2, tylenol will be given. Patient seen, resting in bed, labs reviewed, no new issues at this time. Patient seen, resting in bed, records reviewed, no new issues at this time. Patient seen/examined, resting in bed, records reviewed. Patient seen/examined, resting in bed, labs reviewed, and ok , no new issues at this time, she continues with her rehab activities ok I will recomend daily lab draws, as this will eventually deplete her hgb level, and warranting unnecessary transfusion replacement therapy. Patient seen/examined, resting in bed, no new labs., No new issues at this time. Patient seen, resting in bed, still no new issues at this time.will continue to monitor along with you. Patient seen/examined, resting in bed, records reviewed, case d/w her..Awaiting d/c to the NH/rehab. Patient seen/examined, resting in bed, no new issues at this time. Patient seen, resting in bed, records reviewed, No new issues at this time. Objective - Constitutional Vitals: Vital Signs - 12hr 02/23/19 02/23/19 02/23/19 12:05 12:07 14:05 Temperature 98.2 F Pulse Rate 124 H Pulse Rate [ 110 H Anterior Bilateral Throughout] Respiratory 18 18 Rate Respiratory 18 Rate [Anterior Bilateral Throughout] Blood Pressure 92/48 O2 Sat by Pulse 91 Oximetry 02/23/19 02/23/19 02/23/19 15:39 19:31 19:41 Temperature 98.0 F 97.2 F L Pulse Rate 122 H 107 H Pulse Rate [ 100 H Anterior Bilateral Throughout] Respiratory 18 18 Rate Respiratory 20 Rate [Anterior Bilateral Throughout] Blood Pressure 97/62 83/44 O2 Sat by Pulse 94 96 Oximetry 02/23/19 02/23/19 19:44 21:41 Temperature Pulse Rate 114 H Pulse Rate [ Anterior Bilateral Throughout] Respiratory 18 Rate Respiratory Rate [Anterior Bilateral Throughout] Blood Pressure 90/51 O2 Sat by Pulse 93 94 Oximetry General appearance: Present: mild distress, well-nourished - EENT Eyes: PERRL, EOM intact ENT: hearing intact, clear oral mucosa Ears: bilateral: normal - Neck Neck: supple, normal ROM - Respiratory Respiratory effort: normal Respiratory: bilateral: CTA - Breasts Breasts: deferred - Cardiovascular Rhythm: regular Heart Sounds: Present: S1 & S2. Absent: gallop, rub Extremities: pulses intact, No edema, normal color, Full ROM - Gastrointestinal General gastrointestinal: Present: soft, non-tender, non-distended, normal bowel sounds Rectal Exam: deferred - Genitourinary Female genitourinary: deferred - Integumentary Integumentary: clear, warm, dry - Musculoskeletal Musculoskeletal: 1, strength equal bilaterally - Neurologic Neurologic: moves all extremities - Psychiatric Psychiatric: memory intact, appropriate mood/affect, intact judgment & insight - Labs CBC & Chem 7: 02/23/19 07:01 08/26/19 00:29 Labs: Abnormal lab results 02/23/19 02/23/19 02/23/19 Range/Units 00:29 07:01 08:02 RBC 3.60 L (3.65-5.03) M/mm3 Hgb 8.4 L (10.1-14.3) gm/dl Hct 28.6 L (30.3-42.9) % MCH 23 L (28-32) pg RDW 22.6 H (13.2-15.2) % BUN 33 H (7-17) mg/dL Creatinine 0.6 L (0.7-1.2) mg/dL Glucose 165 H (65-100) mg/dL POC Glucose 140 H (70-105) 02/23/19 02/23/19 02/23/19 Range/Units 12:03 15:49 21:51 RBC (3.65-5.03) M/mm3 Hgb (10.1-14.3) gm/dl Hct (30.3-42.9) % MCH (28-32) pg RDW (13.2-15.2) % BUN (7-17) mg/dL Creatinine (0.7-1.2) mg/dL Glucose (65-100) mg/dL POC Glucose 148 H 190 H 130 H (70-105)
[2019-02-24] MEDS: NEURONTIN PO SCH ×5 (00:16→22:44)
[2019-02-24] MEDS: PERCOCET 5/325 PO PRN ×5 (03:15→22:42)
[2019-02-24] MEDS: LASIX PO SCH ×2 (05:47→18:37)
[2019-02-24] MEDS: CARDIZEM PO SCH ×3 (05:47→23:49)
[2019-02-24] MEDS: LOPRESSOR PO SCH ×4 (05:52→23:53)
[2019-02-24] MEDS: FEOSOL PO SCH ×2 (08:27→22:43)
[2019-02-24] MEDS: CORDARONE PO SCH ×2 (08:27→23:53)
[2019-02-24] MEDS: ZINC SULFATE PO SCH ×2 (08:27→22:43)
[2019-02-24] MEDS: ELIQUIS PO SCH ×3 (08:27→22:50)
[2019-02-24] MEDS: VITAMIN C PO SCH ×2 (08:27→22:43)
[2019-02-24] MEDS: THERAGRAN-M Tab PO SCH (08:27)
[2019-02-24] MEDS: PAXIL PO SCH (08:27)
[2019-02-24] MEDS: XANAX PO PRN ×2 (08:27→22:42)
[2019-02-24] MEDS: HumaLOG SUB-Q SCH ×4 (08:31→22:41)
[2019-02-24] MEDS: ENTRESTO 24 - 26 MG PO SCH ×2 (08:31→23:54)
[2019-02-24] MEDS: DICLOFENAC 1% TP SCH ×3 (08:31→23:49)
--- NOTE | 2019-02-24 09:38 | Progress Note ---
Subjective Date of service: 02/24/19 Principal diagnosis: Left BKA, debility Interval history: 58-year-old female with recent history of a left BKA revision started to develop extreme pain in the legs and buttocks along with tachycardia. At the ER she was found to have atrial fibrillation with RVR. Her reports she was supposed to be on amiodarone was apparently noncompliant with this. She was started on amiodarone drip. She developed an acute mental status change but workup was negative for any acute changes. She is transferred to the ICU placed on BiPAP with some improvements noted. She developed MRSA bacteremia and was started on vancomycin. On 01/21 she was noted to have a right brachial DVT and was placed on a heparin drip. This was not seen in paperwork that we reviewed prior to admission and she was not transferred on any anticoagulation. There was mention under atrial fibrillation that she was not a good candidate for anticoagulation, however with both atrial fibrillation and a DVT she is at a higher risk for an embolic event. Discussed with the patient risks and benefits and have started her on Eliquis. She continued to have persistent respiratory issues with w heezing and shortness of breath. She was started on Entresto along with IV steroids and is now on oral steroid wean. Patient is participating in therapy and making progress. Taking rest breaks as needed. +BM. Denies palpitations, N/V, diarrhea. Complains of urinary urgency today. UA NEG. BP lower today. Heart rate variable. Legs weeping less, lymphedema wrap in place with significant decrease in swelling Discussed discharge plan with patient, SNF-awaiting acceptance and appropriate paperwork from family. Continue to monitor. Patient should d/c this week. Able to utilize sliding board All records, vitals, labs and medications were reviewed. No other issues per patient, nursing or therapy. Objective - Exam Narrative Exam: MUSCULOSKELETAL SPECIALTY EXAM CONSTITUTIONAL: Well developed, well nourished, appropriately groomed, obese EENT: EOMI. Hearing intact to soft voice RESPIRATORY: Slight wheeze bilaterally, slightly better, no increased work of breathing, on nasal cannula CARDIOVASCULAR: Regular Rate Rhythm no tenderness in BUE or BLE. Improved edema in RLE and LLE. All extremities warm. No bleeding noted today GI: + bowel sounds, soft, NTTP, nondistended, protuberant INTEGUMENTARY: Widespread bruising, sores, and lesions, have improved. no rash or masses noted in extremities. Redness on sacral area, not pressure wound. Warty growth in juancho area MUSCULOSKELETAL: Right knee better, decrease swelling, otherwise BUE and BLE normal without defect, crepitus, subluxation, effusion, arthritic changes or TTP except for Left BKA and right toe amputations as noted. BUE 4/5, good ROM, with normal tone. BLE 4-/5 decreased ROM, with normal tone NEURO: CN 2-12 grossly intact. Sensation intact but altered in all extremities. No tremor noted in 4 extremities. POSTURE and GAIT: Sitting posture and fair. Balance appears poor. Standing balance is poor. PSYCH: Alert, oriented x3, affect appears anxious. Insight appears intact. - Constitutional Vitals: Vital Signs - 12hr 02/23/19 02/24/19 02/24/19 21:41 05:47 05:49 Temperature 36.6 C Pulse Rate 114 H 108 H Respiratory 18 19 Rate Blood Pressure 90/51 95/60 Blood Pressure 95/60 [Right] O2 Sat by Pulse 94 98 Oximetry 02/24/19 02/24/19 02/24/19 06:29 08:04 08:12 Temperature 36.3 C L Pulse Rate 106 H 50 L 98 H Respiratory 20 Rate Blood Pressure 95/60 Blood Pressure 96/69 [Right] O2 Sat by Pulse 95 Oximetry - Allied health notes Allied health notes reviewed: nursing, PT, OT FIMS assessment as documented by PT/OT/ST: Grooming Patient cleans teeth/dentures: Yes Patient epperson/brushes hair: Yes Patient washes, rinses and Yes dries face: Patient washes, rinses and Yes dries hands: Patient shaves: No Patient applies make-up: No Patient performs (no make-up/ 10/02 (100%) shaving): Grooming FIM Score 4. Minimal Assistance (Patient = 75% or more. Needs touching.) Social interaction/Memory/Problem solving Social Interaction FIM Score 6. Mod. [place] (Mostly appropriate. May need meds. No supv.) Memory FIM Score 6. Modified [place](Mild difficulty remembering people/routines.) Problem Solving FIM Score 5. Supervision (Needs cueing <10% to solve routine problems.) Transfers Mode of Locomotion: Wheelchair Bed/Chair/Wheelchair Transfers 4. Minimal Assistance (Patient = 75% or more. FIM Score Needs touching.) Locomotion- Stairs Stairs FIM Score 0. Activity does not occur Locomotion- walk/wheelchair Most Frequent Mode of Wheelchair Locomotion: Ambulation Distance 0 Walking FIM Score 0. Activity does not occur Wheelchair Propulsion Distance 175 Wheelchair FIM Score 4. Minimal Assistance (Patient = 75% or more. Minimum of 150 ft.) Eating Eating FIM Score 7. Complete [place] (Cuts meat, opens containers, regular diet.) Dressing-Upper body Patient retrieves clothing No items: Patient applies/removes UE No prosthesis or orthosis: Upper Body Dressing FIM Score 4. Minimal Assistance (Patient = 75% or more. Needs touching.) Dressing-lower body Lower Body Dressing Device Parts And Service Manager/Stick,Sock Aid Patient retrieves clothing No items: Patient applies/removes LE N/A prosthesis or orthosis: Lower Body Dressing FIM Score 3. Moderate Assistance (Patient = 50% or more) - Labs CBC & Chem 7: 02/23/19 07:01 02/23/19 00:29 Labs: Laboratory Results - last 72 hr 02/21/19 02/21/19 02/21/19 10:49 16:06 22:08 WBC RBC Hgb Hct MCV MCH MCHC RDW Plt Count Sodium Potassium Chloride Carbon Dioxide Anion Gap BUN Creatinine Estimated GFR BUN/Creatinine Ratio Glucose POC Glucose 114 H 123 H 128 H Calcium Folate 02/22/19 02/22/19 02/22/19 09:16 12:35 18:05 WBC RBC Hgb Hct MCV MCH MCHC RDW Plt Count Sodium Potassium Chloride Carbon Dioxide Anion Gap BUN Creatinine Estimated GFR BUN/Creatinine Ratio Glucose POC Glucose 81 109 H 147 H Calcium Folate 02/22/19 02/23/19 02/23/19 21:41 00:29 07:01 WBC 5.7 RBC 3.60 L Hgb 8.4 L Hct 28.6 L MCV 79 MCH 23 L MCHC 30 RDW 22.6 H Plt Count 204 Sodium 140 Potassium 4.0 Chloride 100.2 Carbon Dioxide 25 Anion Gap 19 BUN 33 H Creatinine 0.6 L Estimated GFR > 60 BUN/Creatinine Ratio 55 Glucose 165 H POC Glucose 136 H Calcium 8.5 Folate 02/23/19 02/23/19 02/23/19 08:02 10:49 12:03 WBC RBC Hgb Hct MCV MCH MCHC RDW Plt Count Sodium Potassium Chloride Carbon Dioxide Anion Gap BUN Creatinine Estimated GFR BUN/Creatinine Ratio Glucose POC Glucose 140 H 148 H Calcium Folate 15.50 02/23/19 02/23/19 02/24/19 15:49 21:51 07:52 WBC RBC Hgb Hct MCV MCH MCHC RDW Plt Count Sodium Potassium Chloride Carbon Dioxide Anion Gap BUN Creatinine Estimated GFR BUN/Creatinine Ratio Glucose POC Glucose 190 H 130 H 116 H Calcium Folate Assessment and Plan Left BKA: Continue supportive care. We'll continue to work with therapy on transfers in order to facilitate safe transition. At this point based on the patient's comorbidities it does not appear that she will be a good candidate for a prosthesis. We will likely discharge home at wheelchair level. Atrial fibrillation: Need to improve rate control, normalized today. Eliquis for anticoagulation. Cardiology consult. Cellulitis right knee: keflex completed, monitor COPD: Continue respiratory support with prednisone and inhalers. DuoNeb. Respiratory therapy eval and nasal cannula for oxygen. CHF: Continue diuresis, monitor renal function, continue Entresto - consult Paul. Heart. Hypertension: Continue medications and adjust as needed, improving currently. Diabetes, poorly controlled: Continue controlled carb diet, continue insulin monitor and adjust as needed Coronary artery disease: ASA and plavix d/c'd due to thrombocytopenia and minor bleeding. Monitor for any signs of bleeding. Monitor for any chest pain or cardiac symptoms. Peripheral vascular disease: monitor for any signs of bleeding. Monitor H&H. Of f antiplatelets due to thrombocytopenia DVT R brachial vein: Discussed risk and benefits with patient, confirmed with Doppler, started Eliquis. Monitor for any signs of bleeding. Hgb stable Morbid obesity: Discussed weight loss, lifestyle change, dietary modification Suspected pneumonia: Completed Levaquin. Short course mucomyst MRSA bacteremia: Completed vancomycin. D/C isolation. Last blood culture was negative Anxiety/depression: continue Xanax and Paxil Skin: continue juancho-care Right shoulder pain: Chronic in nature. Speed's POS. Voltaren gel, modalities. Pain improved Z73.6 ADL dysfunction: OT will work on improving ability to perform ADLs (including assistive devices) to increase independence and decrease caregiver burden and improve functional transfers and mobility training. R26.2 Difficulty walking: PT will work on gait training and proper use of assistive devices and advance as appropriate to use of stairs and outside ambulation on uneven surfaces. R26.81 Unsteadiness on feet: PT will work on improving static and dynamic sitting and standing balance as well as proper use of assistive devices to decrease risk of falls. R26.89 Abnormality of gait: PT will work to improve safety and efficiency of gait through neuromotor training and gait training along with instruction on proper use of assistive devices. M62.81 Muscle weakness: PT & OT will work on strengthening exercises to improve functional strength including mixture of closed and open kinetic chain exercise s. R53.81 Debility: PT & OT will work on improving overall functional status to improve participation with ADLs, mobility and social involvement. R53.83 Fatigue: PT & OT will work on improving endurance through aerobic exercises and therapeutic activity while monitoring patients tolerance for activity and vital signs as needed. DVT ppx: Started on Eliquis for RUE DVT Pain: Continue physical modalities in therapy and pain medications as needed to achieve functional pain control. Patient remains on Percocet for chronic pain Sleep: Monitor and address as needed. Melatonin Bowel: Monitor and address as needed. Appetite: Monitor and address as needed. Discharge planning: Pending therapy progress and care plan meeting. Will continue discussion with therapy team, SW, patient and family. Plan for discharge once [facility] facility receives and excepts paperwork provided by the daughter. We do have a tentative acceptance at this time. Restrictions/ Precautions: Falls, cardiac WB status: FWB Functional Hx: ADLs: Needed assistance Cognition: Ind Mobility: RW Barriers to Discharge: Decreased mobility and ability to perform self care, balance deficits, weakness Estimated Length of Stay: 1014 days Discharge Destination: SNF, awaiting final acceptance
--- NOTE | 2019-02-24 11:44 | Progress Note ---
Assessment and Plan s/p left BKA Thrombocytopenia -resolved Permanent Atrial fib/flutter on diltiazem, metoprolol and amiodarone for rate control on eliquis for oral anticoagulation therapy. Ischemic cardiomyopathy with EF 30-35% CAD s/p 3v CABG in 2013 Cor [place] COPD Hx of tobacco abuse Htn DM PAD Chronic non-compliance with medical therapy and medical follow up Continue medical therapy for ischemic cardiomyopathy, coronary artery disease and permanent Afib as her blood pressure will allow. Subjective Date of service: 02/24/19 Principal diagnosis: Left BKA, debility Interval history: Patient has no cardiac complaints. Objective Vital Signs Temp Pulse Pulse Resp Resp BP BP 02/24/19 08:12 98 H 02/24/19 08:04 97.3 F L 50 L 20 96/69 02/24/19 06:29 106 H 95/60 02/24/19 05:49 97.8 F 108 H 19 95/60 02/24/19 05:47 95/60 02/23/19 21:41 114 H 18 90/51 02/23/19 19:44 02/23/19 19:41 100 H 20 02/23/19 19:31 97.2 F L 107 H 18 83/44 02/23/19 15:39 98.0 F 122 H 18 97/62 02/23/19 14:05 110 H 18 02/23/19 12:07 18 02/23/19 12:05 98.2 F 124 H 18 92/48 Pulse Ox 02/24/19 08:12 02/24/19 08:04 95 02/24/19 06:29 02/24/19 05:49 98 02/24/19 05:47 02/23/19 21:41 94 02/23/19 19:44 93 02/23/19 19:41 02/23/19 19:31 96 02/23/19 15:39 94 02/23/19 14:05 02/23/19 12:07 02/23/19 12:05 91 - Physical Examination General: No Apparent Distress, Other (obese) HEENT: Positive: PERRL Neck: Positive: trachea midline Cardiac: Positive: irregularly irregular Lungs: Positive: Decreased Breath Sounds, Wheezes Neuro: Positive: Grossly Intact Abdomen: Positive: Soft, Active Bowel Sounds Extremities: Present: +1 Edema, Other (left BKA)
[2019-02-24] MEDS: DUONEB *Not for PRN Use IH SCH ×3 (13:15→19:45)
[2019-02-24 14:44] LABS: Bilirubin,Urine NEG (Negative); Blood,Urine NEG (Negative); Color,Urine Yellow (Yellow); Mucus,Urine FEW /HPF; Protein,Urine <15 mg/dL mg/dL (Negative); Urobilinogen,Urine < 2.0 mg/dL (<2.0)
[2019-02-24] MEDS ORDERED: DULCOLAX PO PRN (15:52)
--- NOTE | 2019-02-24 20:03 | Progress Note ---
Assessment and Plan - Patient Problems (1) Abdominal pain Current Visit: No Status: Acute Qualifiers: Abdominal location: generalized Qualified Code(s): R10.84 - Generalized abdominal pain Plan to address problem: pain control. (2) Anal wart Current Visit: No Status: Acute Plan to address problem: local tx, or ID eval. (3) Atrial flutter Current Visit: No Status: Acute Plan to address problem: follow cardiology. (4) Congestive cardiomyopathy Current Visit: No Status: Acute Plan to address problem: follow cardiology. (5) DVT prophylaxis Current Visit: No Status: Acute Plan to address problem: continue as current. (6) Anemia Current Visit: Yes Status: Acute Plan to address problem: See notes section. stable. (7) Thrombocytopenia Current Visit: Yes Status: Acute Plan to address problem: see notes section. probably infection in the wound related, vs nutrition, iron is low, B12 low end of NL. other etiology, is the vancomycin. Normalized. Subjective Date of service: 02/24/19 Principal diagnosis: Left BKA, debility Interval history: patient seen/examined, resting in bed, NAD, labs reviewed.PLT dropped by additional 2K., still no bleeding. patient seen/examined, resting in bed, records reviewed. No new issues at this time. Patient seen/examined, resting in bed, labs reviewed, case d/w patient Patient seen/examined, resting in bed labs reviewed, case d/w patient. Will continue to follow you. patient seen, resting in bed, lates labs reviewed.No new issues at this time. Patient seen/examined, resting in bed, labs reviewed, Iron labs ordered. Patient seen/resting in bed, labs reviewed. NAD at this time. Patient seen/examined, resting in bed, labs reviewed, case d/w patient, Temp 100.2, tylenol will be given. Patient seen, resting in bed, labs reviewed, no new issues at this time. Patient seen, resting in bed, records reviewed, no new issues at this time. Patient seen/examined, resting in bed, records reviewed. Patient seen/examined, resting in bed, labs reviewed, and ok , no new issues at this time, she continues with her rehab activities ok I will recomend daily lab draws, as this will eventually deplete her hgb level, and warranting unnecessary transfusion replacement therapy. Patient seen/examined, resting in bed, no new labs., No new issues at this time. Patient seen, resting in bed, still no new issues at this time.will continue to monitor along with you. Patient seen/examined, resting in bed, records reviewed, case d/w her..Awaiting d/c to the NH/rehab. Patient seen/examined, resting in bed, no new issues at this time. Patient seen, resting in bed, records reviewed, No new issues at this time. Patient seen/examined, resting in bed, nad.labs reviewed Objective - Constitutional Vitals: Vital Signs - 12hr 02/24/19 02/24/19 02/24/19 08:04 08:12 14:33 Temperature 97.3 F L Pulse Rate 50 L 98 H 105 H Pulse Rate [ Anterior Bilateral Throughout] Respiratory 20 Rate Respiratory Rate [Anterior Bilateral Throughout] Blood Pressure 121/76 Blood Pressure 96/69 [Right] O2 Sat by Pulse 95 Oximetry 02/24/19 02/24/19 02/24/19 14:43 15:34 16:50 Temperature 97.9 F 97.6 F Pulse Rate 105 H 116 H Pulse Rate [ Anterior Bilateral Throughout] Respiratory 18 18 22 Rate Respiratory Rate [Anterior Bilateral Throughout] Blood Pressure Blood Pressure 121/76 99/61 [Right] O2 Sat by Pulse 2 L 96 Oximetry 02/24/19 02/24/19 02/24/19 18:37 19:45 19:49 Temperature Pulse Rate Pulse Rate [ 103 H Anterior Bilateral Throughout] Respiratory 22 Rate Respiratory 20 Rate [Anterior Bilateral Throughout] Blood Pressure Blood Pressure [Right] O2 Sat by Pulse 95 Oximetry General appearance: Present: mild distress, well-nourished - EENT Eyes: PERRL, EOM intact ENT: hearing intact, clear oral mucosa Ears: bilateral: normal - Neck Neck: supple, normal ROM - Respiratory Respiratory effort: normal Respiratory: bilateral: CTA - Breasts Breasts: deferred - Cardiovascular Rhythm: regular Heart Sounds: Present: S1 & S2. Absent: gallop, rub Extremities: pulses intact, No edema, normal color, Full ROM - Gastrointestinal General gastrointestinal: Present: soft, non-tender, non-distended, normal bowel sounds Rectal Exam: deferred - Genitourinary Female genitourinary: deferred - Integumentary Integumentary: clear, warm, dry - Musculoskeletal Musculoskeletal: 1, strength equal bilaterally - Neurologic Neurologic: moves all extremities - Psychiatric Psychiatric: memory intact, appropriate mood/affect, intact judgment & insight - Labs CBC & Chem 7: 02/23/19 07:01 02/23/19 00:29 Labs: Abnormal lab results 02/23/19 02/24/19 02/24/19 Range/Units 21:51 07:52 11:52 POC Glucose 130 H 116 H 125 H (70-105) 02/24/19 Range/Units 16:30 POC Glucose 117 H (70-105)
[2019-02-24] MEDS: LANTUS SUB-Q SCH (22:42)
[2019-02-24] MEDS: COLACE PO SCH (22:43)
[2019-02-24] MEDS: MELATONIN PO SCH (22:43)
[2019-02-25] MEDS: NEURONTIN PO SCH ×3 (00:35→12:00)
[2019-02-25] MEDS: LASIX PO SCH (06:13)
[2019-02-25] MEDS: LOPRESSOR PO SCH (06:18)
[2019-02-25] MEDS: CARDIZEM PO SCH (06:18)
[2019-02-25] MEDS: PERCOCET 5/325 PO PRN ×2 (06:25→11:59)
[2019-02-25] MEDS: HumaLOG SUB-Q SCH ×2 (07:01→12:02)
[2019-02-25] MEDS: DICLOFENAC 1% TP SCH (08:05)
--- NOTE | 2019-02-25 09:07 | Discharge Summary ---
Providers - Providers Date of Admission: 01/28/19 18:09 Date of discharge: 02/25/19 Attending physician: MARISSA BROWN III, MD 01/28/19 17:05 Occupational Therapy Evaluate and Treat [CONS] Routine Comment: Reason For Exam: ADL dysfunction Physical Therapy Evaluation and Treat [CONS] Routine Comment: Reason For Exam: Mobility Dysfunction 01/28/19 17:13 Consult to Case Management [CONS] Routine Services Needed at Discharge: Home Health Services Notified:: TELECOMMUNICATIONS PROFESSIONAL 02/03/19 09:33 Consult to Physician [CONS] Routine Comment: Thank you Consulting Provider: SANTY LYNCH Physician Instructions: Please eval and treat Reason For Exam: Thrombocytopenia and DVT 02/03/19 09:35 Consult to Physician [CONS] Routine Comment: Pt known to group from katrina Foote Consulting Provider: KRISTIAN BARRIOS Physician Instructions: Eval & treat, started on Entresto at OSH Reason For Exam: CHF, Hypotension, Afib 02/05/19 09:00 Consult to Wound/ET Nurse [CONS] Routine Reason For Exam: wound eval Primary care physician: SANTY LYNCH Hospitalization Reason for admission: Left BKA and debility Condition: Fair Pertinent studies: Doppler 01/29/2019: DVT Right brachial vein, confirmed. Noted but not treated at OSH. 01/29/[address] c-spine, head: NEG for any acute injury Hospital course: 58-year-old female with recent history of a left BKA revision started to develop extreme pain in the legs and buttocks along with tachycardia. At the ER she was found to have atrial fibrillation with RVR. Her reports she was supposed to be on amiodarone was apparently noncompliant with this. She was started on amiodarone drip. She developed an acute mental status change but workup was negative for any acute changes. She is transferred to the ICU placed on BiPAP with some improvements noted. She developed MRSA bacteremia and was started on vancomycin. On 01/21 she was noted to have a right brachial DVT and was placed on a heparin drip. This was not seen in paperwork that we reviewed prior to admission and she was not transferred on any anticoagulation. There was mention under atrial fibrillation that she was not a good candidate for anticoagulation, however with both atrial fibrillation and a DVT she is at a higher risk for an embolic event. Discussed with the patient risks and benefits and have started her on Eliquis. She continued to have persistent respiratory issues with wheezing and shortness of breath. She was started on Entresto along with IV steroids and is now on oral steroid wean. Prior to arrival for rehabilitation patient was on a heparin drip for her DVT which we were unaware of. Once this was found in the records that were transferred with her, I confirmed the presence of the DVT with an ultrasound and promptly started her on Eliquis. She had several episodes of slight epistaxis. At this time she also had thrombocytopenia. Aspirin and Plavix were stopped and the epistaxis resolved. Fortunately her PCP is also a billet cutter/oncologist and has privileges at the hospital and was consulted for further insight since he knows the patient very well. He agreed with the continuance of Eliquis and we monitored for any further signs of bleeding. Once her platelets improved (after vancomycin was completed) she was started back on low-dose aspirin. Hemoglobin since has remained stable and she does have chronic anemia. Patient does have hypotensive episodes but is typically not symptomatic from them. We placed hold orders on all of her medications. Unfortunately her Entresto has been held more often than given. Discussed with cardiology, they prefer to continue this medication. Also discussed with cardiology patient's tachycardia. She typically has run between 100-120 bpm even with amiodarone and metoprolol on board. They started her on diltiazem which seems to have helped for the most part but she still spikes to the low 120s. We kept her on a telemetry for a couple of weeks for safety, during this time she was in A. fib but she did not develop RVR. Overall she tolerated therapy well and participated enthusiastically for the most part. She did require encouragement at times. She also gets very anxious when confronted with new obstacles. She was able to use a sliding board towards the end of her stay with us but is not yet proficient in its use. My discussion with her concerning prosthesis in her ability to walk in the future is that she will likely be wheelchair bound due to poor upper body strength, poor overall cardiopulmonary conditioning and she will not be a candidate for utilizing a prosthesis for ambulation due to the increased amount of energy required for such ambulation. She may be able to obtain a prosthesis for cosmetic purposes and possibly for transfers. If her overall cardiopulmonary health improves she may also be able to tolerate walking short distances. Her edema was extremely hard to control. Shortly under stay we had to decrease her Lasix due to renal function even though her legs were extremely swollen. We applied lymphedema wrapping which she does not tolerate very well and had significant reduction in the amount of fluid in her legs. Would encourage her to continue with this wrapping in order to reduce the edema in her bilateral lower extremities going forward. Diabetes was fairly well controlled on her current regimen of insulin along with carb controlled diet. The day prior to discharge she complained of urinary urgency, UA was unremarkable. We did adjust her bowel medications allowing her to have a easier bowel movement and she states that she feels better and feels like she is urinating better. She would benefit from continued therapy and assistance with mobility. She has the potential to become independent with transfers and also to be independent with wheelchair mobility. We had difficulty obtaining regular clothing for her which would also help from the standpoint of being alone to do a sliding board transfer. Disposition: [id number]/[id number] Time spent for discharge: >30mins Core Measure Documentation - Palliative Care Palliative Care/ Comfort Measures: Not Applicable - Core Measures Any of the following diagnoses?: DVT/PE, heart failure - VTE Discharge Requirements Deep Vein Thrombosis/Pulmonary Embolism Present on Admission: Yes Has pt received <5 days of overlap therapy or INR<2.0: No Anticoagulant overlap therapy prescribed at discharge: No Contraindication No Overlap Therapy order at DC: Not Indicated (On eliquis since 01/29) - Heart Failure Discharge Requirements JULIAN/ARB for LVSD if EF <40%: Yes Beta jesús at discharge: Yes Heart failure comment: BP not tolerating Entresto Exam - Physical Exam Narrative exam: MUSCULOSKELETAL SPECIALTY EXAM CONSTITUTIONAL: Well developed, well nourished, appropriately groomed, obese EENT: EOMI. Hearing intact to soft voice RESPIRATORY: Slight wheeze bilaterally, slightly better, no increased work of breathing, on nasal cannula CARDIOVASCULAR: Regular Rate Rhythm no tenderness in BUE or BLE. Improved edema in RLE and LLE. All extremities warm. No bleeding noted today GI: + bowel sounds, soft, NTTP, nondistended, protuberant INTEGUMENTARY: Widespread bruising, sores, and lesions, have improved. no rash or masses noted in extremities. Redness on sacral area, not pressure wound. Warty growth in [place] area MUSCULOSKELETAL: Right knee better, decrease swelling, otherwise BUE and BLE normal without defect, crepitus, subluxation, effusion, arthritic changes or TTP except for Left BKA and right toe amputations as noted. BUE 4/5, good ROM, with normal tone. BLE 4-/5 decreased ROM, with normal tone NEURO: CN 2-12 grossly intact. Sensation intact but altered in all extremities. No tremor noted in 4 extremities. POSTURE and GAIT: Sitting posture fair. Balance appears poor. Standing balance is poor/unable. PSYCH: Alert, oriented x3, affect appears anxious. Insight appears intact. - Constitutional Vitals: Temp Pulse Resp BP Pulse Ox 36.8 C 111 H 24 109/63 97 02/25/19 07:28 02/25/19 07:28 02/25/19 07:28 02/25/19 07:28 02/25/19 07:28 - Allied Health Allied health notes reviewed: nursing, PT, OT Plan Activity: advance as tolerated, up only with assistance, fall precautions Weight Bearing Status: Non-Weight Bearing (L BKA) Diet: low salt, diabetic Wound: keep clean and dry Special Instructions: record daily weights, record daily BP diary, record blood sugar diary, home oxygen via (nasal cannula) Additional Instructions: Monitor CBC and BMP. Iron studies in next few weeks. Vit D in 3 weeks to determine need for further treatment. Continue lymphedema wrapping to BLE Follow up with: SANTY LYNCH DO [Primary Care Provider] - 7 Days Prescriptions: Insulin Glargine [Lantus VIAL] 20 units SUB-Q QHS 30 Days units AtorvaSTATin [Lipitor] 40 mg PO QHS #30 tablet Melatonin [Melatonin 5MG TAB] 10 mg PO QHS #60 tablet Aspirin [Aspirin BABY CHEW TAB] 81 mg PO QDAY #30 tab.chew dilTIAZem [Cardizem] 30 mg PO Q8HR #90 tablet Amiodarone [Cordarone 200 MG TAB] 200 mg PO BID #60 tablet Apixaban [Eliquis] 5 mg PO Q12HR #60 tablet Sacubitril/Valsartan [Entresto 24 - 26 mg] 1 each PO BID #60 tablet Ferrous Sulfate [Feosol 325 MG tab] 325 mg PO BID #40 tablet Lispro Insulin [HumaLOG] See Protocol SUB-Q ACHS 30 Days units Furosemide [Lasix TAB] 40 mg PO 0600,1800 #60 tablet Metoprolol [Lopressor TAB] 50 mg PO Q8HR #90 tablet Gabapentin [Neurontin] 300 mg PO Q6HR #120 capsule PARoxetine [Paxil] 10 mg PO QDAY #30 tablet oxyCODONE /ACETAMINOPHEN [Percocet 5/325 mg] 1 tab PO Q4H PRN #20 tablet PRN Reason: Pain, Moderate (4-6) Ascorbic Acid [Vitamin C] 500 mg PO BID #60 tablet Ergocalciferol [Vitamin D2] 50,000 unit PO We #3 capsule ALPRAZolam [Xanax TAB] 0.5 mg PO BID PRN #60 tablet PRN Reason: Anxiety Zinc Sulfate 220 mg PO BID 30 Days #60 capsule Ipratropium/Albuterol Sulfate [DUONEB *Not for PRN Use*] 1 ampul IH TIDRT 30 Days ampul.neb
--- NOTE | 2019-02-25 09:11 | Progress Note ---
Assessment and Plan s/p left BKA Thrombocytopenia -resolved Permanent Atrial fib/flutter on diltiazem, metoprolol and amiodarone for rate control on eliquis for oral anticoagulation therapy. Ischemic cardiomyopathy with EF 30-35% - on BB. blood pressure unable to tolerate addition of ACEi due to need for rate control agents for treatment of atrial fibrillation CAD s/p 3v CABG in 2014 - on ASA, BB, and statin. Continue Cor Pulmonale - gentle diuresis as needed. on oxygen COPD - mangement per primary Hx of tobacco abuse - no longer smokes Htn - well controlled DM - on statin. management per primary PAD - on ASA and statin Chronic non-compliance with medical therapy and medical follow up Subjective Date of service: 02/25/19 Principal diagnosis: Left BKA, debility Interval history: No acute events. Resting comfortably. No chest pain or SOB. Objective Vital Signs Temp Pulse Pulse Resp Resp BP BP 02/25/19 07:28 98.3 F 111 H 24 109/63 02/25/19 06:18 109 H 110/70 02/24/19 23:53 108 H 106/68 02/24/19 23:49 106/68 02/24/19 19:49 02/24/19 19:46 97.6 F 110 H 24 102/75 02/24/19 19:45 103 H 20 02/24/19 18:37 22 02/24/19 16:50 97.6 F 116 H 22 99/61 02/24/19 15:34 18 02/24/19 14:43 97.9 F 105 H 18 121/76 02/24/19 14:33 105 H 121/76 Pulse Ox 02/25/19 07:28 97 02/25/19 06:18 02/24/19 23:53 02/24/19 23:49 02/24/19 19:49 95 02/24/19 19:46 95 02/24/19 19:45 02/24/19 18:37 02/24/19 16:50 96 02/24/19 15:34 02/24/19 14:43 2 L 02/24/19 14:33 - Physical Examination General: No Apparent Distress, Other (obese) HEENT: Positive: PERRL Neck: Positive: trachea midline Neuro: Positive: Grossly Intact Abdomen: Positive: Soft, Active Bowel Sounds Extremities: Present: +1 Edema, Other (left BKA)
[2019-02-25] MEDS: ELIQUIS PO SCH (11:59)
[2019-02-25] MEDS: VITAMIN D2 PO SCH (11:59)
[2019-02-25] MEDS: ZINC SULFATE PO SCH (11:59)
[2019-02-25] MEDS: XANAX PO PRN (11:59)
[2019-02-25] MEDS: FEOSOL PO SCH (12:00)
[2019-02-25] MEDS ORDERED: BABY ASPIRIN PO SCH (12:00)
[2019-02-25] MEDS: THERAGRAN-M Tab PO SCH (12:00)
[2019-02-25] MEDS: VITAMIN C PO SCH (12:00)
[2019-02-25] MEDS: PAXIL PO SCH (12:01)
[2019-02-25] MEDS: COLACE PO SCH (12:01)
[2019-02-25] MEDS: CORDARONE PO SCH (12:01)
[2019-02-25] MEDS: ENTRESTO 24 - 26 MG PO SCH (12:05)
[2019-02-25 12:37] VITALS: BP 98/60
--- NOTE | 2019-02-25 19:33 | Progress Note ---
Assessment and Plan - Patient Problems (1) Abdominal pain Current Visit: No Status: Acute Qualifiers: Abdominal location: generalized Qualified Code(s): R10.84 - Generalized abdominal pain Plan to address problem: pain control. (2) Anal wart Current Visit: No Status: Acute Plan to address problem: local tx, or ID eval. (3) Atrial flutter Current Visit: No Status: Acute Plan to address problem: follow cardiology. (4) Congestive cardiomyopathy Current Visit: No Status: Acute Plan to address problem: follow cardiology. (5) DVT prophylaxis Current Visit: No Status: Acute Plan to address problem: continue as current. (6) Anemia Current Visit: Yes Status: Acute Plan to address problem: See notes section. stable. (7) Thrombocytopenia Current Visit: Yes Status: Acute Plan to address problem: see notes section. probably infection in the wound related, vs nutrition, iron is low, B12 low end of NL. other etiology, is the vancomycin. Normalized. Subjective Date of service: 02/25/19 Principal diagnosis: Left BKA, debility Interval history: patient seen/examined, resting in bed, NAD, labs reviewed.PLT dropped by additional 2K., still no bleeding. patient seen/examined, resting in bed, records reviewed. No new issues at this time. Patient seen/examined, resting in bed, labs reviewed, case d/w patient Patient seen/examined, resting in bed labs reviewed, case d/w patient. Will continue to follow you. patient seen, resting in bed, lates labs reviewed.No new issues at this time. Patient seen/examined, resting in bed, labs reviewed, Iron labs ordered. Patient seen/resting in bed, labs reviewed. NAD at this time. Patient seen/examined, resting in bed, labs reviewed, case d/w patient, Temp 100.2, tylenol will be given. Patient seen, resting in bed, labs reviewed, no new issues at this time. Patient seen, resting in bed, records reviewed, no new issues at this time. Patient seen/examined, resting in bed, records reviewed. Patient seen/examined, resting in bed, labs reviewed, and ok , no new issues at this time, she continues with her rehab activities ok I will recomend daily lab draws, as this will eventually deplete her hgb level, and warranting unnecessary transfusion replacement therapy. Patient seen/examined, resting in bed, no new labs., No new issues at this time. Patient seen, resting in bed, still no new issues at this time.will continue to monitor along with you. Patient seen/examined, resting in bed, records reviewed, case d/w her..Awaiting d/c to the [facility]/rehab. Patient seen/examined, resting in bed, no new issues at this time. Patient seen, resting in bed, records reviewed, No new issues at this time. Patient seen/examined, resting in bed, nad.labs reviewed Patient seen/examined, resting in bed, notes reviewed, case d/w patient. Continue to follow you with current management. Objective - Constitutional Vitals: Vital Signs - 12hr 02/25/19 12:01 Temperature 98.0 F Pulse Rate 101 H Respiratory 22 Rate Blood Pressure 98/60 O2 Sat by Pulse 97 Oximetry General appearance: Present: mild distress, well-nourished - EENT Eyes: PERRL, EOM intact ENT: hearing intact, clear oral mucosa Ears: bilateral: normal - Neck Neck: supple, normal ROM - Respiratory Respiratory effort: normal Respiratory: bilateral: CTA - Breasts Breasts: deferred - Cardiovascular Rhythm: regular Heart Sounds: Present: S1 & S2. Absent: gallop, rub Extremities: pulses intact, No edema, normal color, Full ROM - Gastrointestinal General gastrointestinal: Present: soft, non-tender, non-distended, normal bowel sounds Rectal Exam: deferred - Genitourinary Female genitourinary: deferred - Integumentary Integumentary: clear, warm, dry - Musculoskeletal Musculoskeletal: 1, strength equal bilaterally - Neurologic Neurologic: moves all extremities - Psychiatric Psychiatric: memory intact, appropriate mood/affect, intact judgment & insight - Labs CBC & Chem 7: 02/23/19 07:01 02/23/19 00:29 Labs: Abnormal lab results 02/24/19 02/25/19 02/25/19 Range/Units 20:53 07:34 12:06 POC Glucose 182 H 133 H 130 H (70-105)
== END 2019-02-25 14:00 | DRG 948 ==
LOC: UNDOADMIN 13:50 → 3A 13:50 → 3B 01-28 18:09
PROVIDERS: ADMIT Physical Medicine & Rehabilitation; ATTEND Physical Medicine & Rehabilitation
DX: R53.81 Other malaise (principal); E11.51 Type 2 diabetes mellitus with diabetic peripheral angiopathy without gangrene; I48.92 Unspecified atrial flutter; R78.81 Bacteremia; L03.115 Cellulitis of right lower limb; Z68.41 Body mass index [BMI] 40.0-44.9, adult; I48.91 Unspecified atrial fibrillation; I25.10 Atherosclerotic heart disease of native coronary artery without angina pectoris; J44.9 Chronic obstructive pulmonary disease, unspecified; I11.0 Hypertensive heart disease with heart failure; I50.9 Heart failure, unspecified; E66.01 Morbid (severe) obesity due to excess calories; E78.5 Hyperlipidemia, unspecified; F41.8 Other specified anxiety disorders; D69.6 Thrombocytopenia, unspecified; I82.621 Acute embolism and thrombosis of deep veins of right upper extremity; I27.20 Pulmonary hypertension, unspecified; I25.5 Ischemic cardiomyopathy; Z89.512 Acquired absence of left leg below knee; Z22.322 Carrier or suspected carrier of Methicillin resistant Staphylococcus aureus; I25.2 Old myocardial infarction; Z99.81 Dependence on supplemental oxygen; Z86.718 Personal history of other venous thrombosis and embolism; Z86.73 Personal history of transient ischemic attack (TIA), and cerebral infarction without residual deficits; Z95.1 Presence of aortocoronary bypass graft; Z82.49 Family history of ischemic heart disease and other diseases of the circulatory system; Z80.9 Family history of malignant neoplasm, unspecified; Z88.0 Allergy status to penicillin; Z91.14 Patient's other noncompliance with medication regimen
CPT/HCPCS: 36415; 70250; 70450; 71046; 72040; 72125; 74018; 80048; 80053; 80202; 81001; 82607; 82728; 82747; 82962; 83540; 83550; 83615; 83735; 84550; 85014; 85018; 85025; 85027; 85379; 85384; 86022; 87086; 93970; 94640; 94760; 99205; G0378; A9270-GY; G0463; J1650; J1815; J1940; J3370; J3480; J7030; J7040; J7512; P9047; Q0162